=== PATIENT | female | born 2000 | race Hispanic/Latino ===

== ENCOUNTER 2018-07-06 22:11 | Emergency (ER) | payer SELFPAY ==
[2018-07-06 22:48] LABS: Urine Blood NEGATIVE (NEG); Urine Glucose NEGATIVE (NEG); Urine Protein NEGATIVE (NEG)
[2018-07-06] MEDS ORDERED: ONDANSETRON 4 MG/2 ML VIAL ONE (23:02)
[2018-07-06] MEDS ORDERED: KETOROLAC 30 MG/ML INJ ONE (23:02)
[2018-07-06 23:08] LABS: Absolute Lymphocytes (CBC) 2.2 K/uL (0.7-4.9); Absolute Monocytes 0.5 K/uL (0.1-1.3); Absolute Neutrophil 4.2 K/uL (1.8-8.0); Basophils % 0.9 % (0-1.3); Eosinophils % 1.3 % (0-4.4); Hematocrit 36.4 % (36.0-45.0); Lymphocytes % 31.2 % (15.3-44.8); MCH 30.1 pg (27.0-35.0); MCV 89.1 fL (80-100); Monocytes % 6.6 % (3.3-12.3); RBC Red Blood Cell Count 4.09 M/uL (3.86-4.86)
[2018-07-06 23:28] LABS: ALT/SGPT 17 U/L (12-78); AST/SGOT 17 U/L (15-37); Alkaline Phosphatase 64 U/L (45-117); BUN Blood Urea Nitrogen 14 mg/dL (7-18); Bicarbonate 27 mmol/L (21-32); Bilirubin Total 0.2 mg/dL (0.2-1.0); Glucose Level 80 mg/dL (74-106); Potassium 3.4 mmol/L (3.5-5.1); Protein, Total 7.3 g/dL (6.4-8.2); Sodium Level 140 mmol/L (136-145)
--- NOTE | 2018-07-07 00:02 | ER ---
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 pt seen by PCP ak1 today for "high blood sugars" pt to make diet changes and follow up with PCP 07/20/18. Transition of care: patient was not received from another setting of care. Onset of symptoms is unknown. Risk Assessment: Do you want to hurt yourself or someone else? Patient reports no desire to harm self or others. Initial Sepsis Screen: Does the patient meet any 2 criteria? No. Patient's initial sepsis screen is negative. Does the patient have a suspected source of infection? No. Patient's initial sepsis screen is negative. Care prior to arrival: motrin 3 tabs at 1500, relief unit 2100. 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 22:29 Method Of Arrival: Ambulatory ak1 22:29 Acuity: JOLLY 4 ak1 Triage Assessment: 22:31 Headache History: The patient has had previous headaches and this one is similar to ak1 previous episodes. General: Appears in no apparent distress. Behavior is calm, cooperative. Pain: Complains of pain in left temporal area and left zoroastrian. Pain: Pain currently is 5 out of 10 on a pain scale. Pain began 2-3 days ago. Also complains of no other associated symptoms. EENT: No signs and/or symptoms were reported regarding the EENT system. Neuro: Level of Consciousness is awake, alert, obeys commands, Oriented to person, place, time, situation, Director Of Operations are equal bilaterally Moves all extremities. Gait is steady, Speech is normal, Facial symmetry appears normal, Pupils are PERRLA. Cardiovascular: No deficits noted. Respiratory: No deficits noted. GI: No signs and/or symptoms were reported involving the gastrointestinal system. : No signs and/or symptoms were reported regarding the genitourinary system. Derm: No signs and/or symptoms reported regarding the dermatologic system. Musculoskeletal: No signs and/or symptoms reported regarding the musculoskeletal system. 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 - Social history:: Smoking status: Patient/guardian denies using tobacco. - Ebola Screening: : No symptoms or risks identified at this time. - Family history:: not pertinent. Screenin:33 Abuse screen: Denies threats or abuse. Denies injuries from another. Nutritional ak1 screening: No deficits noted. Tuberculosis screening: No symptoms or risk factors identified. Fall Risk None identified. Assessment: 22:33 Reassessment: Patient appears in no apparent distress at this time. No changes from ak1 previously documented assessment. Patient is alert, oriented x 3, equal unlabored respirations, skin warm/dry/pink. see triage assessment. General: Appears in no apparent distress. Behavior is calm, cooperative. Pain: Complains of pain in face and left zoroastrian and left temporal area. 23:02 Reassessment: Patient appears in no apparent distress at this time. No changes from ak1 previously documented assessment. Patient and/or family updated on plan of care and expected duration. Pain level reassessed. Patient is alert, oriented x 3, equal unlabored respirations, skin warm/dry/pink. pt and family informed of wait for results. 23:42 Reassessment: Patient appears in no apparent distress at this time. No changes from ak1 previously documented assessment. Patient and/or family updated on plan of care and expected duration. Pain level reassessed. Patient is alert, oriented x 3, equal unlabored respirations, skin warm/dry/pink. pt tolerated POchallenge. Vital Signs: 22:31 BP 121 / 80; Pulse 96; Resp 18; Temp 98.1(O); Pulse Ox 100% on R/A; Weight 52.16 kg ak1 (R); Height 4 ft. 11 in. (149.86 cm) (R); Pain 5/10; 23:34 BP 96 / 70; Pulse 94; Resp 16; Pulse Ox 100% on R/A; ak1 22:31 Body Mass Index 23.23 (52.16 kg, 149.86 cm) ak1 ED Course: 22:14 Patient arrived in ED. 22:18 Selvin Bose MD is Attending Physician. sandeep 22:29 Qian Nelson, RN is Primary Nurse. ak1 22:29 Patient has correct armband on for positive identification. Bed in low position. Call ak1 light in reach. Side rails up X 1. Adult w/ patient. Pulse ox on. NIBP on. 22:30 Triage completed. ak1 22:31 Arm band placed on Patient placed in an exam room, on a stretcher, on pulse oximetry, ak1 Patient notified of wait time. 22:33 Urine collected: clean catch specimen, clear. ak1 22:54 Initial lab(s) drawn, by me, sent to lab. Inserted saline lock: 20 gauge in right ak1 antecubital area, using aseptic technique. Blood collected. 23:00 CT Head Brain wo Cont In Process Unspecified. EDMT 07/07 00:01 Jimy Parker MD is Referral Physician. [facility] 00:04 No provider procedures requiring assistance completed. IV discontinued, intact, ak1 bleeding controlled, No redness/swelling at site. Pressure dressing applied. Administered Medications: 07/06 23:02 Drug: TORadol 30 mg Route: IVP; Site: right antecubital; ak1 23:34 Follow up: Response: No adverse reaction ak1 23:02 Drug: Zofran 4 mg Route: IVP; Site: right antecubital; ak1 23:34 Follow up: Response: No adverse reaction ak1 Outcome: 07/07 00:01 Discharge ordered by . sandeep 00:04 Discharged to home ambulatory, with family. ak1 00:04 Condition: improved 00:04 Discharge instructions given to patient, family, Instructed on discharge instructions, follow up and referral plans. no drinking with medication, no driving heavy equipment, medication usage, Demonstrated understanding of instructions, follow-up care, medications, Prescriptions given X 2. 00:11 Patient left the ED. ak1 Signatures: Dispatcher [employer] EDSelvin Mello MD MD cha Salyer, Qian Muller, RN RN ak1
--- NOTE | 2018-07-07 00:02 | EDPHYS ---
Physician Documentation [facility] Name: Niru Castro Age: 18 yrs Sex: Female : 2000 Arrival Date: 07/06/2018 Time: 22:14 Bed 5 Private MD: ED Physician Selvin Bose HPI: 07/06 22:50 This 18 yrs old Female presents to ER via Ambulatory with complaints of sandeep Headache. 22:50 The patient complains of pain to the left congregational. The patient describes the headache as sandeep constant. Onset: The symptoms/episode began/occurred 1 day(s) ago. Associated signs and symptoms: The patient has no apparent associated signs or symptoms. Severity of symptoms: At its worst the pain was moderate, in the emergency department the pain is unchanged. Headache History: Denies prior headaches. The symptoms are alleviated by nothing. the symptoms are aggravated by nothing. The patient has not experienced similar symptoms in the past. 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 - Social history:: Smoking status: Patient/guardian denies using tobacco. - Ebola Screening: : No symptoms or risks identified at this time. - Family history:: not pertinent. ROS: 22:50 Constitutional: Negative for fever, chills, and weight loss, Eyes: Negative for injury, sandeep pain, redness, and discharge, ENT: Negative for injury, pain, and discharge, Neck: Negative for injury, pain, and swelling, Cardiovascular: Negative for chest pain, palpitations, and edema, Respiratory: Negative for shortness of breath, cough, wheezing, and pleuritic chest pain, Abdomen/GI: Negative for abdominal pain, nausea, vomiting, diarrhea, and constipation, Back: Negative for injury and pain, : Negative for injury, bleeding, discharge, and swelling, MS/Extremity: Negative for injury and deformity, Skin: Negative for injury, rash, and discoloration, Psych: Negative for depression, anxiety, suicide ideation, homicidal ideation, and hallucinations, Allergy/Immunology: Negative for hives, rash, and allergies, Endocrine: Negative for neck swelling, polydipsia, polyuria, polyphagia, and marked weight changes. 22:50 Neuro: Positive for headache, of the left congregational and left temporal area. Exam: 22:50 Constitutional: This is a well developed, well nourished patient who is awake, alert, sandeep and in no acute distress. Eyes: Pupils equal round and reactive to light, extra-ocular motions intact. Lids and lashes normal. Conjunctiva and sclera are non-icteric and not injected. Cornea within normal limits. Periorbital areas with no swelling, redness, or edema. ENT: Nares patent. No nasal discharge, no septal abnormalities noted. Tympanic membranes are normal and external auditory canals are clear. Oropharynx with no redness, swelling, or masses, exudates, or evidence of obstruction, uvula midline. Mucous membranes moist. Neck: Trachea midline, no thyromegaly or masses palpated, and no cervical lymphadenopathy. Supple, full range of motion without nuchal rigidity, or vertebral point tenderness. No Meningismus. Chest/axilla: Normal chest wall appearance and motion. Nontender with no deformity. No lesions are appreciated. Cardiovascular: Regular rate and rhythm with a normal S1 and S2. No gallops, murmurs, or rubs. Normal PMI, no JVD. No pulse deficits. Respiratory: Lungs have equal breath sounds bilaterally, clear to auscultation and percussion. No rales, rhonchi or wheezes noted. No increased work of breathing, no retractions or nasal flaring. Abdomen/GI: Soft, non-tender, with normal bowel sounds. No distension or tympany. No guarding or rebound. No evidence of tenderness throughout. Back: No spinal tenderness. No costovertebral tenderness. Full range of motion. Female : Normal external genitalia. Skin: Warm, dry with normal turgor. Normal color with no rashes, no lesions, and no evidence of cellulitis. MS/ Extremity: Pulses equal, no cyanosis. Neurovascular intact. Full, normal range of motion. Neuro: Awake and alert, GCS 15, oriented to person, place, time, and situation. Cranial nerves II-XII grossly intact. Motor strength 5/5 in all extremities. Sensory grossly intact. Cerebellar exam normal. Normal gait. 22:50 Head/face: Noted is tenderness, that is mild, of the left congregational. 22:52 Neck: External neck: is normal, no acute changes, C-spine: appears grossly normal, no sandeep acute changes, Thyroid: appears normal, no acute changes, Trachea: is midline with no obvious abnormalities, no acute changes, ROM/movement: is normal, no acute changes, Meningeal signs: are not present, Kernig's sign is negative, Brudzinski's sign is negative, Lymph nodes: no appreciated lymphadenopathy. Vital Signs: 22:31 BP 121 / 80; Pulse 96; Resp 18; Temp 98.1(O); Pulse Ox 100% on R/A; Weight 52.16 kg ak1 (R); Height 4 ft. 11 in. (149.86 cm) (R); Pain 5/10; 23:34 BP 96 / 70; Pulse 94; Resp 16; Pulse Ox 100% on R/A; ak1 22:31 Body Mass Index 23.23 (52.16 kg, 149.86 cm) [facility] MDM: 22:18 Patient medically screened. [facility] 22:53 Data reviewed: vital signs, nurses notes, lab test result(s), radiologic studies, CT sandeep scan. 07/06 22:34 Order name: Urine Dipstick--Ancillary (enter results); Complete Time: 22:53 [facility] 07/06 22:34 Order name: Urine --Ancillary (enter results); Complete Time: 22:53 [facility] 07/06 22:46 Order name: CBC with Diff; Complete Time: 00:01 [facility] 07/06 22:46 Order name: Comprehensive Metabolic Panel; Complete Time: 23:32 [facility] 07/06 22:46 Order name: Sed Rate; Complete Time: 00:01 [facility] 07/06 22:46 Order name: CT Head Brain wo Cont [facility] 07/06 23:33 Order name: PO challenge: juice; Complete Time: 23:41 [facility] Administered Medications: 23:02 Drug: TORadol 30 mg Route: IVP; Site: right antecubital; ak1 23:34 Follow up: Response: No adverse reaction ak1 23:02 Drug: Zofran 4 mg Route: IVP; Site: right antecubital; ak1 23:34 Follow up: Response: No adverse reaction ak1 Disposition: 07/07/18 00:01 Discharged to Home. Impression: Headache, Hypokalemia. - Condition is Stable. - Discharge Instructions: Potassium Content of Foods, General Headache Without Cause, Migraine Headache, [id number]-[id number], General Headache Without Cause, Golb-jx-Djxu, Hypokalemia. - Prescriptions for Fioricet with Codeine 50- 325-40-30 mg Oral capsule - take 1 capsule by ORAL route every 4 hours as needed not to exceed 6 capsules per 24hrs; 20 capsule. Zofran 4 mg Oral Tablet - take 1 tablet by ORAL route every 12 hours As needed; 14 tablet. - Medication Reconciliation Form, Thank You Letter, Antibiotic Education, Prescription Opioid Use form. - Follow up: Private Physician; When: 2 - 3 days; Reason: Recheck today's complaints, Continuance of care, Re-evaluation by your physician. Follow up: Jimy Parker; When: 2 - 3 days; Reason: Recheck today's complaints, Re-evaluation by your physician. - Problem is new. - Symptoms have improved. Signatures: Dispatcher [employer] EDAR Selvin Bose MD MD cha Krenek, Amber RN RN ak1 Corrections: (The following items were deleted from the chart) 07/07 00:11 00:01 07/07/2018 00:01 Discharged to Home. Impression: Headache; Hypokalemia. Condition ak1 is Stable. Discharge Instructions: General Headache Without Cause, Migraine Headache, Gtkb-ko-Ogic, General Headache Without Cause, Hmta-yh-Weli, Potassium Content of Foods, Hypokalemia. Prescriptions for Fioricet with Codeine 81-655-82-30 mg Oral capsule - take 1 capsule by ORAL route every 4 hours as needed not to exceed 6 capsules per 24hrs; 20 capsule, Zofran 4 mg Oral Tablet - take 1 tablet by ORAL route every 12 hours As needed; 14 tablet. and Forms are Medication Reconciliation Form, Thank You Letter, Antibiotic Education, Prescription Opioid Use. Follow up: Private Physician; When: 2 - 3 days; Reason: Recheck today's complaints, Continuance of care, Re-evaluation by your physician. Follow up: Jimy Parker; When: 2 - 3 days; Reason: Recheck today's complaints, Re-evaluation by your physician. Problem is new. Symptoms have improved. sandeep
--- NOTE | 2018-07-07 12:18 | RAD REPORT ---
EXAM DESCRIPTION: CT - Head Brain Wo Cont - 07/07/2018 3:58 am CLINICAL HISTORY: Headache A preliminary report was provided at the time of the study and reviewed prior to final report. Due to hospital wide power failure, all overnight and morning reports are delayed. COMPARISON: None. TECHNIQUE: Axial 5 mm thick images of the head were obtained without IV contrast. All CT scans are performed using dose optimization technique as appropriate and may include automated exposure control or mA/KV adjustment according to patient size. FINDINGS: No intracranial hemorrhage, mass, edema or shift of mid-line structures. No acute infarcti on changes seen. No abnormal extra-axial fluid collections. Ventricles are normal. Mastoid air cells and visualized portions of the paranasal sinuses are clear. No acute bony findings. IMPRESSION: Negative non-contrast CT head examination.
== END 2018-07-07 00:11 | disposition home or self-care (01) ==
LOC: ER 22:11
DX: E87.6 Hypokalemia (principal)
CPT/HCPCS: 36415; 70450; 80053; 81003; 81025; 85025; 85652; 96374; 96375; 99284; J2405

== ENCOUNTER 2018-12-23 21:42 | Emergency (ER) | payer OTHER, SELFPAY ==
--- OUTSIDE RECORDS SUMMARY | 2018-12-23 21:45 | XMS REPORT ---
:2000 [facility] Address [address] [place] [address] Dr. Conde [address] [place] [id number] Care Team Providers Name Role Phone Unavailable Unavailable Unavailable Problems This patient has no known problems. Allergies, Adverse Reactions, Alerts This patient has no known allergies or adverse reactions. Medications This patient has no known medications.
[2018-12-23] MEDS ORDERED: DIPHENHYDRAMINE 25 MG TAB/CAP ONE (22:22)
[2018-12-23] MEDS ORDERED: NA CHLORIDE 0.9% 1,000 ML ONE (23:53)
[2018-12-24 00:19] LABS: Absolute Lymphocytes (CBC) 1.8 K/uL (0.7-4.9); Absolute Monocytes 0.4 K/uL (0.1-1.3); Absolute Neutrophil 6.6 K/uL (1.8-8.0); Basophils % 0.4 % (0-1.3); Eosinophils % 0.3 % (0-4.4); Hematocrit 34.6 % (36.0-45.0); Lymphocytes % 20.5 % (15.3-44.8); MPV 10.7 fL (7.6-11.3); RBC Red Blood Cell Count 3.93 M/uL (3.86-4.86)
[2018-12-24 00:30] LABS: ALT/SGPT 16 U/L (12-78); AST/SGOT 12 U/L (15-37); Albumin 3.8 g/dL (3.4-5.0); Alkaline Phosphatase 39 U/L (45-117); BUN Blood Urea Nitrogen 7 mg/dL (7-18); Bicarbonate 24 mmol/L (21-32); Bilirubin Direct < 0.1 mg/dL (0-0.2); Bilirubin Total 0.3 mg/dL (0.2-1.0); Glucose Level 82 mg/dL (74-106); Potassium 3.5 mmol/L (3.5-5.1); Protein, Total 6.9 g/dL (6.4-8.2); Sodium Level 139 mmol/L (136-145)
--- NOTE | 2018-12-24 00:59 | ER ---
Nurse's Notes [facility] Name: Niru Castro Age: 18 yrs Sex: Female : 2000 Arrival Date: 12/23/2018 Time: 21:45 Bed 25 Private MD: Diagnosis: state;Vomiting;Dehydration;Urinary tract infection, site not specified Presentation: 12/23 22:03 Presenting complaint: Patient states: Patient reports that she has been vomiting at aj1 least 10 times a day for the past 2 days. Patient reports that she has been unable to tolerate food or fluids. Reports feeling weak at this time. Denies abdominal pain or vaginal bleeding. Transition of care: patient was not received from another setting of care. Onset of symptoms was December 21, 2018. Risk Assessment: Do you want to hurt yourself or someone else? Patient reports no desire to harm self or others. Initial Sepsis Screen: Does the patient meet any 2 criteria? No. Patient's initial sepsis screen is negative. Does the patient have a suspected source of infection? No. Patient's initial sepsis screen is negative. Care prior to arrival: None. 22:03 Method Of Arrival: Ambulatory aj 22:03 Acuity: JOLLY 3 aj1 Triage Assessment: 22:04 General: Appears in no apparent distress. comfortable, Behavior is calm, cooperative, aj1 appropriate for age. Pain: Denies pain. Neuro: Level of Consciousness is awake, alert, obeys commands, Oriented to person, place, time, situation. Cardiovascular: Patient's skin is warm and dry. Respiratory: Airway is patent Respiratory effort is even, unlabored, Respiratory pattern is regular, symmetrical. GI: Reports nausea, vomiting. 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 - Social history:: Smoking status: Patient/guardian denies using tobacco. - Ebola Screening: : Patient denies travel to an Ebola-affected area in the 21 days before illness onset. Screenin:46 Abuse screen: Denies threats or abuse. Nutritional screening: No deficits noted. jb4 Tuberculosis screening: No symptoms or risk factors identified. Fall Risk IV access (20 points). Gait- Normal/Bed Rest/Wheelchair (0 pts) Total Haro Fall Scale indicates No Risk (0-24 pts). Assessment: 23:56 General: Appears comfortable, well groomed, well developed, Behavior is calm, jb4 cooperative, appropriate for age, Pt reports "passing out" earlier today after vomiting. Pain: Denies pain. Neuro: Level of Consciousness is awake, alert, obeys commands, Oriented to person, place, time, situation. Cardiovascular: Patient's skin is warm and dry. Respiratory: Airway is patent Respiratory effort is even, unlabored, Respiratory pattern is regular, symmetrical. GI: Abdomen is flat, non-distended, Bowel sounds present X 4 quads. Abd is soft and non tender X 4 quads. Reports nausea, vomiting. : No signs and/or symptoms were reported regarding the genitourinary system. EENT: No signs and/or symptoms were reported regarding the EENT system. Derm: Skin is intact, Skin is pink, warm \\T\\ dry. Musculoskeletal: Circulation, motion, and sensation intact. 12/24 01:39 Reassessment: Patient appears in no apparent distress at this time. No changes from jb4 previously documented assessment. Patient and/or family updated on plan of care and expected duration. Pain level reassessed. Patient is alert, oriented x 3, equal unlabored respirations, skin warm/dry/pink. Vital Signs: 12/23 22:04 BP 111 / 78; Pulse 90; Resp 18; Temp 98.3; Pulse Ox 100% on R/A; Weight 49.9 kg (R); aj1 Height 4 ft. 11 in. (149.86 cm) (R); Pain 0/10; 23:46 BP 91 / 64; Pulse 76; Resp 18; Pulse Ox 100% on R/A; jb4 12/24 00:12 BP 105 / 65; Pulse 75; Resp 16; Pulse Ox 100% on R/A; jb4 01:39 BP 108 / 70; Pulse 64; Resp 16; Pulse Ox 99% on R/A; jb4 12/23 22:04 Body Mass Index 22.22 (49.90 kg, 149.86 cm) aj ED Course: 12/23 21:45 Patient arrived in ED. am2 22:04 Triage completed. aj1 22:04 Arm band placed on Patient placed in an internal wait recliner, Patient notified of aj1 wait time. 23:00 Patient has correct armband on for positive identification. Bed in low position. Call jb4 light in reach. Side rails up X 1. 23:00 Pulse ox on. NIBP on. jb4 23:09 Sandy Preciado FNP-C is PHCP. snw 23:09 Bruno Mullins MD is Attending Physician. snw 23:16 Rigo Chow, RN is Primary Nurse. jb4 12/24 01:40 No provider procedures requiring assistance completed. IV discontinued, intact, jb4 bleeding controlled. Administered Medications: 12/23 22:12 Drug: Benadryl 25 mg Route: PO; aj1 23:56 Follow up: Response: No adverse reaction jb4 23:55 Drug: NS 0.9% 1000 ml Route: IV; Rate: 1 bolus; Site: right antecubital; jb4 03 00:50 Follow up: Response: No adverse reaction; IV Status: Completed infusion; IV Intake: jb4 1000ml 01:36 Drug: Rocephin 1 grams Route: IV; Rate: calculated rate; Site: right antecubital; jb4 01:38 Follow up: Response: No adverse reaction; IV Status: Completed infusion; IV Intake: jb4 10ml ; Given IVP per pharmacy protocol Intake: 00:50 IV: 1000ml; Total: 1000ml. jb4 01:38 IV: 10ml; Total: 1010ml. jb4 Outcome: 00:58 Discharge ordered by . snw 01:40 Discharged to home ambulatory, with family. jb4 01:40 Condition: stable 01:40 Discharge instructions given to patient, significant other, Instructed on discharge instructions, follow up and referral plans. Demonstrated understanding of instructions, follow-up care. 01:41 Patient left the ED. jb4 Signatures: Elizabeth Reyes RN RN aj1 Sandy Preciado FNP-C FNP-CsnRigo Tracy, RN RN jb4 Stephania Whitney am2 Corrections: (The following items were deleted from the chart) 00:00 12/23 23:56 General: Appears comfortable, well groomed, well developed, Behavior is jb4 calm, cooperative, appropriate for age, jb4
--- NOTE | 2018-12-24 00:59 | EDPHYS ---
Physician Documentation [facility] Name: Niru Castro Age: 18 yrs Sex: Female : 2000 Arrival Date: 12/23/2018 Time: 21:45 Bed 25 Private MD: ED Physician Bruno Mullins HPI: 12/24 00:17 This 18 yrs old Female presents to ER via Ambulatory with complaints of snw Nausea/Vomiting - 10 wks . 00:17 The patient presents to the emergency department with nausea, vomiting. Onset: The snw symptoms/episode began/occurred acutely, 2 week(s) ago, and became persistent. Possible causes: . The symptoms are aggravated by nothing. Severity of symptoms: At their worst the symptoms were moderate. The patient has not experienced similar symptoms in the past. It is unknown whether or not the patient has recently seen a physician. denies abdominal cramping, fever, vaginal discharge. INVESTIGATIVE REPORTER: 12/23 22:04 LMP 10/12/2018 aj1 Historical: - Allergies: 22:04 No Known Allergies; aj1 - Home Meds: 22:04 None [Active]; aj1 - PMHx: 22:04 HYPERGLYCEMIA; aj1 - PSHx: 22:04 None; aj1 - Immunization history:: Flu vaccine is up to date. - Social history:: Smoking status: Patient/guardian denies using tobacco. - Ebola Screening: : Patient denies travel to an Ebola-affected area in the 21 days before illness onset. ROS: 12/24 00:16 Constitutional: Negative for fever, chills, and weight loss, Eyes: Negative for injury, snw pain, redness, and discharge, ENT: Negative for injury, pain, and discharge, Neck: Negative for injury, pain, and swelling, Cardiovascular: Negative for chest pain, palpitations, and edema, Respiratory: Negative for shortness of breath, cough, wheezing, and pleuritic chest pain, Back: Negative for injury and pain, : Negative for injury, bleeding, discharge, and swelling, MS/Extremity: Negative for injury and deformity, Skin: Negative for injury, rash, and discoloration, Neuro: Negative for headache, weakness, numbness, tingling, and seizure. Abdomen/GI: Positive for nausea, vomiting. Exam: 00:16 Constitutional: This is a well developed, well nourished patient who is awake, alert, snw and in no acute distress. Head/Face: Normocephalic, atraumatic. Eyes: Pupils equal round and reactive to light, extra-ocular motions intact. Lids and lashes normal. Conjunctiva and sclera are non-icteric and not injected. Cornea within normal limits. Periorbital areas with no swelling, redness, or edema. ENT: Nares patent. No nasal discharge, no septal abnormalities noted. Tympanic membranes are normal and external auditory canals are clear. Oropharynx with no redness, swelling, or masses, exudates, or evidence of obstruction, uvula midline. Mucous membranes moist. Neck: Trachea midline, no thyromegaly or masses palpated, and no cervical lymphadenopathy. Supple, full range of motion without nuchal rigidity, or vertebral point tenderness. No Meningismus. Chest/axilla: Normal chest wall appearance and motion. Nontender with no deformity. No lesions are appreciated. Cardiovascular: Regular rate and rhythm with a normal S1 and S2. No gallops, murmurs, or rubs. Normal PMI, no JVD. No pulse deficits. Respiratory: Lungs have equal breath sounds bilaterally, clear to auscultation and percussion. No rales, rhonchi or wheezes noted. No increased work of breathing, no retractions or nasal flaring. Abdomen/GI: Soft, non-tender, with normal bowel sounds. No distension or tympany. No guarding or rebound. No evidence of tenderness throughout. Back: No spinal tenderness. No costovertebral tenderness. Full range of motion. Skin: Warm, dry with normal turgor. Normal color with no rashes, no lesions, and no evidence of cellulitis. MS/ Extremity: Pulses equal, no cyanosis. Neurovascular intact. Full, normal range of motion. Neuro: Awake and alert, GCS 15, oriented to person, place, time, and situation. Cranial nerves II-XII grossly intact. Motor strength 5/5 in all extremities. Sensory grossly intact. Cerebellar exam normal. Normal gait. Psych: Awake, alert, with orientation to person, place and time. Behavior, mood, and affect are within normal limits. Vital Signs: 12/23 22:04 BP 111 / 78; Pulse 90; Resp 18; Temp 98.3; Pulse Ox 100% on R/A; Weight 49.9 kg (R); aj1 Height 4 ft. 11 in. (149.86 cm) (R); Pain 0/10; 23:46 BP 91 / 64; Pulse 76; Resp 18; Pulse Ox 100% on R/A; jb4 12/24 00:12 BP 105 / 65; Pulse 75; Resp 16; Pulse Ox 100% on R/A; jb4 01:39 BP 108 / 70; Pulse 64; Resp 16; Pulse Ox 99% on R/A; jb4 12/23 22:04 Body Mass Index 22.22 (49.90 kg, 149.86 cm) aj1 MDM: 00:05 Patient medically screened. snw 01:00 Data reviewed: vital signs, nurses notes. Data interpreted: Pulse oximetry: on room air snw is 100 %. Interpretation: normal. Counseling: I had a detailed discussion with the patient and/or guardian regarding: the historical points, exam findings, and any diagnostic results supporting the discharge/admit diagnosis, lab results, the need for outpatient follow up, to return to the emergency department if symptoms worsen or persist or if there are any questions or concerns that arise at home. Special discussion: Based on the patient's Hx, exam, and Dx evaluation, there is no indication for emergent surgery or inpatient Tx. It is understood by the patient/guardian that if the Sx's persist or worsen they need to return immediately for re-evaluation. Based on the history and exam findings, there is no indication for further emergent testing or inpatient evaluation. I discussed with the patient/guardian the need to see the OB Gyne specialist for further evaluation of the symptoms. 12/23 23:09 Order name: Urine Culture snw 12/23 23:09 Order name: Urine Microscopic Only; Complete Time: 01:20 snw 12/23 23:16 Order name: Basic Metabolic Panel; Complete Time: 00:35 snw 12/23 23:16 Order name: CBC with Diff; Complete Time: 00:28 snw 12/23 23:16 Order name: Hepatic Function; Complete Time: 00:35 snw 12/23 23:16 Order name: Magnesium; Complete Time: 00:35 snw 12/23 23:09 Order name: Urine Test (obtain specimen); Complete Time: 23:56 snw 12/23 23:09 Order name: Urine Dipstick-Ancillary (obtain specimen); Complete Time: 23:56 snw 12/23 23:16 Order name: Labs collected and sent; Complete Time: 23:56 snw 12/24 00:15 Order name: Urine Dipstick--Ancillary (enter results); Complete Time: 01:33 ag4 12/24 00:15 Order name: Urine --Ancillary (enter results); Complete Time: :33 ag4 Administered Medications: 12/23 22:12 Drug: Benadryl 25 mg Route: PO; aj1 23:56 Follow up: Response: No adverse reaction jb4 23:55 Drug: NS 0.9% 1000 ml Route: IV; Rate: 1 bolus; Site: right antecubital; jb4 12/24 00:50 Follow up: Response: No adverse reaction; IV Status: Completed infusion; IV Intake: jb4 1000ml 01:36 Drug: Rocephin 1 grams Route: IV; Rate: calculated rate; Site: right antecubital; 4 01:38 Follow up: Response: No adverse reaction; IV Status: Completed infusion; IV Intake: jb4 10ml ; Given IVP per pharmacy protocol Disposition: 02:27 Co-signature as Attending Physician, Bruno Mullins MD. ma2 Disposition: 12/24/18 00:58 Discharged to Home. Impression: state, Vomiting, Dehydration, Urinary tract infection, site not specified. - Condition is Stable. - Discharge Instructions: Dehydration, Adult, Nausea and Vomiting, Adult, First Trimester of , and Urinary Tract Infection, Rehydration, Adult. - Prescriptions for Macrobid 100 mg Oral Capsule - take 1 capsule by ORAL route every 12 hours for 10 days; 20 capsule. - Medication Reconciliation Form, Thank You Letter, Antibiotic Education, Prescription Opioid Use form. - Follow up: Private Physician; When: 1 - 2 days; Reason: Recheck today's complaints, Continuance of care, Re-evaluation by your physician. Follow up: Emergency Department; When: As needed; Reason: Worsening of condition. Signatures: Dispatcher [employer] EDElizabeth Tabor RN RN aj1 Sandy Preciado, SCALE CLERK-C SCALE CLERK-Csnw Rigo Chow RN RN jb4 Bruno Mullins MD MD ma2 Corrections: (The following items were deleted from the chart) 01:23 00:58 12/24/2018 00:58 Discharged to Home. Impression: state; Vomiting; snw Dehydration. Condition is Stable. Forms are Medication Reconciliation Form, Thank You Letter, Antibiotic Education, Prescription Opioid Use. Follow up: Private Physician; When: 1 - 2 days; Reason: Recheck today's complaints, Continuance of care, Re-evaluation by your physician. Follow up: Emergency Department; When: As needed; Reason: Worsening of condition. snw 01:41 01:23 12/24/2018 00:58 Discharged to Home. Impression: state; Vomiting; jb4 Dehydration; Urinary tract infection, site not specified. Condition is Stable. Discharge Instructions: Dehydration, Adult, Nausea and Vomiting, Adult, First Trimester of , Rehydration, Adult. Forms are Medication Reconciliation Form, Thank You Letter, Antibiotic Education, Prescription Opioid Use. Follow up: Private Physician; When: 1 - 2 days; Reason: Recheck today's complaints, Continuance of care, Re-evaluation by your physician. Follow up: Emergency Department; When: As needed; Reason: Worsening of condition. snw
[2018-12-24 01:13] LABS: Urine Culture Reflex Order NOT NEEDED
[2018-12-24 01:14] LABS: Urine Bacteria >50 /HPF (<20); Urine Mucus 4+ /HPF (NONE SEEN)
[2018-12-24 01:15] LABS: Urine RBC <5 /HPF (NONE SEEN)
[2018-12-24 01:28] LABS: Urine Blood NEGATIVE (NEG); Urine Glucose NEGATIVE (NEG); Urine Protein 1+ (NEG); Urine Specific Gravity 1.025 (1.005-1.030)
[2018-12-24] MEDS ORDERED: CEFTRIAXONE/SWI 1gm 1 GM/10 ML SYR ONE (01:38)
== END 2018-12-24 01:41 | disposition home or self-care (01) ==
LOC: ER 21:42
DX: O23.41 Unspecified infection of urinary tract in pregnancy, first trimester (principal); E86.0 Dehydration; Z3A.10 10 weeks gestation of pregnancy
CPT/HCPCS: 36415; 80048; 80076; 81003; 81015; 81025; 83735; 85025; 87086; 87088; 96361; 96374; 99283; J0696; J7030

== ENCOUNTER 2019-01-03 09:06 | Emergency (ER) | payer OTHER ==
--- OUTSIDE RECORDS SUMMARY | 2019-01-03 09:08 | XMS REPORT ---
:2000 [facility] Address [address] [place] [address] Dr. Conde [address] [place] [id number] Care Team Providers Name Role Phone Unavailable Unavailable Unavailable Problems This patient has no known problems. Allergies, Adverse Reactions, Alerts This patient has no known allergies or adverse reactions. Medications This patient has no known medications.
[2019-01-03] MEDS ORDERED: NA CHLORIDE 0.9% 1,000 ML ONE (10:58)
--- NOTE | 2019-01-03 11:02 | RAD REPORT ---
EXAM DESCRIPTION: US - 1St Trimest Single 1St Fetus - 01/03/2019 10:50 am CLINICAL HISTORY: ABD CRAMPING, COMPARISON: No comparisons FINDINGS: A single gestational sac is seen within the uterus. The shape of the sac is within normal limits for gestational age. Within the sac is a single pole with crown-rump length of 4.2 cm, c orrelating to estimated gestational age of 11 weeks 1 day. Estimated date of delivery is 07/24/2019. Heart rate is 147 BPM. The placenta is not yet developed due to early gestational age. The maternal adnexa and ovaries are within normal limits. Normal Doppler blood flow was demonstrated to both ovaries. IMPRESSION: Single live early intrauterine gestation with estimated gestational age of 11 weeks 1 da y, AMAURY 07/24/2019. No unusual or unexpected finding.
[2019-01-03 11:22] LABS: Absolute Lymphocytes (CBC) 1.4 K/uL (0.7-4.9); Absolute Monocytes 0.3 K/uL (0.1-1.3); Absolute Neutrophil 5.1 K/uL (1.8-8.0); Basophils % 0.3 % (0-1.3); Eosinophils % 0.4 % (0-4.4); Hematocrit 36.5 % (36.0-45.0); Lymphocytes % 20.6 % (15.3-44.8); MPV 10.1 fL (7.6-11.3); Monocytes % 4.6 % (3.3-12.3); RBC Red Blood Cell Count 4.13 M/uL (3.86-4.86)
[2019-01-03 11:55] LABS: BUN Blood Urea Nitrogen 6 mg/dL (7-18); Bicarbonate 27 mmol/L (21-32); Glucose Level 84 mg/dL (74-106); HCG, Quantitative 61900 mIU/mL (1-3); Potassium 3.2 mmol/L (3.5-5.1); Sodium Level 139 mmol/L (136-145)
[2019-01-03 11:56] LABS: Urine Blood NEGATIVE (NEG); Urine Glucose NEGATIVE (NEG); Urine Protein NEGATIVE (NEG); Urine pH 6.5 (5.0-7.0)
--- NOTE | 2019-01-03 12:26 | ER ---
Nurse's Notes [facility] Name: Niru Castro Age: 18 yrs Sex: Female : 2000 Arrival Date: 01/03/2019 Time: 09:08 Bed 23 Private MD: Diagnosis: Abdominal tenderness; related conditions, unspecified, first trimester;Hypokalemia Presentation: 01/03 09:20 Presenting complaint: Lower abdominal pain x 2 days. Pt is 11 weeks , , AMAURY hb 10/. Denies vaginal bleeding/increased discharge/fever. Transition of care: patient was not received from another setting of care. Onset of symptoms was January 02, 2019. Risk Assessment: Do you want to hurt yourself or someone else? Patient reports no desire to harm self or others. Care prior to arrival: None. 09:20 Method Of Arrival: Ambulatory hb 09:20 Acuity: JOLLY 3 hb 13:12 Initial Sepsis Screen: Does the patient meet any 2 criteria? No. Patient's initial aj1 sepsis screen is negative. Does the patient have a suspected source of infection? Yes: Acute abdominal pain. 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 - Social history:: Smoking status: Patient/guardian denies using tobacco. - Ebola Screening: : No symptoms or risks identified at this time. Screenin:10 Abuse screen: Denies threats or abuse. Denies injuries from another. Nutritional aj1 screening: No deficits noted. Tuberculosis screening: No symptoms or risk factors identified. 13:13 Fall Risk None identified. aj1 Assessment: 10:10 General: Appears in no apparent distress. uncomfortable, Behavior is calm, cooperative, aj1 appropriate for age. Pain: Complains of pain in suprapubic area Pain does not radiate. Pain currently is 8 out of 10 on a pain scale. Quality of pain is described as sharp, Pain began 2-3 days ago. Is continuous. Neuro: Level of Consciousness is awake, alert, obeys commands, Oriented to person, place, time, situation. Cardiovascular: Patient's skin is warm and dry. Respiratory: Airway is patent Respiratory effort is even, unlabored, Respiratory pattern is regular, symmetrical. GI: Abdomen is non-distended, Bowel sounds present X 4 quads. Abd is soft and non tender X 4 quads. Reports nausea, Patient currently denies diarrhea, vomiting. : No signs and/or symptoms were reported regarding the genitourinary system. EENT: No signs and/or symptoms were reported regarding the EENT system. Derm: No signs and/or symptoms reported regarding the dermatologic system. Skin is pink, warm \T\ dry. normal. Musculoskeletal: No signs and/or symptoms reported regarding the musculoskeletal system. Circulation, motion, and sensation intact. 11:14 Reassessment: Patient appears in no apparent distress at this time. No changes from aj1 previously documented assessment. Patient and/or family updated on plan of care and expected duration. Pain level reassessed. Patient is alert, oriented x 3, equal unlabored respirations, skin warm/dry/pink. 12:15 Reassessment: Patient appears in no apparent distress at this time. No changes from aj1 previously documented assessment. Patient and/or family updated on plan of care and expected duration. Pain level reassessed. Patient is alert, oriented x 3, equal unlabored respirations, skin warm/dry/pink. 12:44 Reassessment: Patient discharge pending patient finishing KLyte and PO challenge. aj1 Vital Signs: 09:19 BP 106 / 51; Pulse 102; Resp 16; Temp 97.7(TE); Pulse Ox 99% on R/A; Pain 8/10; hb 10:10 BP 112 / 58; Pulse 92; Resp 18; Pulse Ox 100% on R/A; aj1 11:14 BP 99 / 64; Pulse 88; Resp 18; Pulse Ox 100% on R/A; aj1 12:44 BP 95 / 56; Pulse 96; Resp 20; Pulse Ox 100% on R/A; aj1 13:15 BP 99 / 65; Pulse 92; Resp 18; Pulse Ox 99% on R/A; aj1 ED Course: 09:08 Patient arrived in ED. as 09:23 Triage completed. hb 09:58 Elizabeth Reyes RN is Primary Nurse. aj1 10:00 Selvin Bose MD is Attending Physician. sandeep 10:10 Patient has correct armband on for positive identification. Bed in low position. Call aj light in reach. Side rails up X 1. 10:10 Arm band placed on. aj1 10:10 No provider procedures requiring assistance completed. aj1 10:43 Patient taken to ultrasound. via wheelchair. hr 10:51 1St Trimest Single 1St Fetus In Process Unspecified. EDMS 11:05 Initial lab(s) drawn, by me, sent to lab. Inserted saline lock: 20 gauge in right aj antecubital area, using aseptic technique. Blood collected. 12:24 Aayush García MD is Referral Physician. [facility] 13:12 IV discontinued, intact, bleeding controlled, No redness/swelling at site. Pressure aj1 dressing applied. Administered Medications: 11:13 Drug: NS 0.9% 1000 ml Route: IV; Rate: 1 bolus; Site: right antecubital; aj1 13:10 Follow up: IV Status: Completed infusion; IV Intake: 1000ml aj 12:44 Drug: Potassium Effervescent Tablet 25 mEq Route: PO; aj1 13:10 Follow up: Response: No adverse reaction aj Intake: 13:10 IV: 1000ml; Total: 1000ml. aj Outcome: 12:25 Discharge ordered by . [facility] 13:14 Discharged to home ambulatory, with family. aj1 13:14 Condition: good 13:14 Discharge instructions given to patient, Instructed on discharge instructions, follow up and referral plans. medication usage, Demonstrated understanding of instructions, follow-up care, medications, Prescriptions given X 1. 13:15 Patient left the ED. aj Signatures: Dispatcher [employer] EDTN Elizabeth Reyes, RN RN aj1 Selvin Bose MD MD cha Rod, Haley hr Martinez, Amelia as Lydia Castrejon, RN RN
--- NOTE | 2019-01-03 12:26 | EDPHYS ---
Physician Documentation [facility] Name: Niru Castro Age: 18 yrs Sex: Female : 2000 Arrival Date: 01/03/2019 Time: 09:08 Bed 23 Private MD: ED Physician Selvin Bose HPI: 01/03 12:23 This 18 yrs old Female presents to ER via Ambulatory with complaints of sandeep Abdominal Pain - 11 wks preg. 12:22 The patient presents to the emergency department with abdominal pain, of the suprapubic sandeep area. The estimated gestational age is 11 weeks. course: care: at a clinic, private OB physician, Dr. beasley. Previous pregnancies: the patient has never been . Associated signs and symptoms: The patient has no apparent associated signs or symptoms. The patient has not experienced similar symptoms in the past. 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 - Social history:: Smoking status: Patient/guardian denies using tobacco. - Ebola Screening: : No symptoms or risks identified at this time. ROS: 12:23 Constitutional: Negative for fever, chills, and weight loss, Eyes: Negative for injury, sandeep pain, redness, and discharge, ENT: Negative for injury, pain, and discharge, Neck: Negative for injury, pain, and swelling, Cardiovascular: Negative for chest pain, palpitations, and edema, Respiratory: Negative for shortness of breath, cough, wheezing, and pleuritic chest pain, Back: Negative for injury and pain, : Negative for injury, bleeding, discharge, and swelling, MS/Extremity: Negative for injury and deformity, Skin: Negative for injury, rash, and discoloration, Neuro: Negative for headache, weakness, numbness, tingling, and seizure, Psych: Negative for depression, anxiety, suicide ideation, homicidal ideation, and hallucinations, Allergy/Immunology: Negative for hives, rash, and allergies, Endocrine: Negative for neck swelling, polydipsia, polyuria, polyphagia, and marked weight changes, Hematologic/Lymphatic: Negative for swollen nodes, abnormal bleeding, and unusual bruising. 12:23 Abdomen/GI: Positive for abdominal pain, of the suprapubic area. Exam: 12:23 Constitutional: This is a well developed, well nourished patient who is awake, alert, sandeep and in no acute distress. Head/Face: Normocephalic, atraumatic. Eyes: Pupils equal round and reactive to light, extra-ocular motions intact. Lids and lashes normal. Conjunctiva and sclera are non-icteric and not injected. Cornea within normal limits. Periorbital areas with no swelling, redness, or edema. ENT: Nares patent. No nasal discharge, no septal abnormalities noted. Tympanic membranes are normal and external auditory canals are clear. Oropharynx with no redness, swelling, or masses, exudates, or evidence of obstruction, uvula midline. Mucous membranes moist. Neck: Trachea midline, no thyromegaly or masses palpated, and no cervical lymphadenopathy. Supple, full range of motion without nuchal rigidity, or vertebral point tenderness. No Meningismus. Chest/axilla: Normal chest wall appearance and motion. Nontender with no deformity. No lesions are appreciated. Cardiovascular: Regular rate and rhythm with a normal S1 and S2. No gallops, murmurs, or rubs. Normal PMI, no JVD. No pulse deficits. Respiratory: Lungs have equal breath sounds bilaterally, clear to auscultation and percussion. No rales, rhonchi or wheezes noted. No increased work of breathing, no retractions or nasal flaring. Back: No spinal tenderness. No costovertebral tenderness. Full range of motion. Female : Normal external genitalia. Skin: Warm, dry with normal turgor. Normal color with no rashes, no lesions, and no evidence of cellulitis. MS/ Extremity: Pulses equal, no cyanosis. Neurovascular intact. Full, normal range of motion. Neuro: Awake and alert, GCS 15, oriented to person, place, time, and situation. Cranial nerves II-XII grossly intact. Motor strength 5/5 in all extremities. Sensory grossly intact. Cerebellar exam normal. Normal gait. Psych: Awake, alert, with orientation to person, place and time. Behavior, mood, and affect are within normal limits. 12:23 Abdomen/GI: Inspection: abdomen appears normal, Bowel sounds: normal, Palpation: abdomen is soft and non-tender, Liver: no appreciated palpable abnormalities, Hernia: not appreciated. Vital Signs: 09:19 BP 106 / 51; Pulse 102; Resp 16; Temp 97.7(TE); Pulse Ox 99% on R/A; Pain 8/10; hb 10:10 BP 112 / 58; Pulse 92; Resp 18; Pulse Ox 100% on R/A; aj1 11:14 BP 99 / 64; Pulse 88; Resp 18; Pulse Ox 100% on R/A; aj1 12:44 BP 95 / 56; Pulse 96; Resp 20; Pulse Ox 100% on R/A; aj1 13:15 BP 99 / 65; Pulse 92; Resp 18; Pulse Ox 99% on R/A; aj1 MDM: 10:01 Patient medically screened. [facility] 12:24 Data reviewed: vital signs, nurses notes, lab test result(s), radiologic studies, sandeep ultrasound. 01/03 10:27 Order name: Quantitative Hcg; Complete Time: 12:19 sandeep 01/03 10:27 Order name: Abo/rh Typing; Complete Time: 12:19 sandeep 01/03 10:27 Order name: Basic Metabolic Panel; Complete Time: 12:19 sandeep 01/03 10:27 Order name: CBC with Diff; Complete Time: 12:19 sandeep 01/03 10:53 Order name: Urine Dipstick--Ancillary (enter results); Complete Time: 12:19 bd 01/03 10:54 Order name: Urine --Ancillary (enter results); Complete Time: 12:19 bd 01/03 10:27 Order name: Urine Test (obtain specimen); Complete Time: 10:59 sandeep 01/03 10:27 Order name: IV Saline Lock; Complete Time: 11:13 sandeep 01/03 10:27 Order name: Labs collected and sent; Complete Time: 11:13 sandeep 01/03 10:27 Order name: NPO; Complete Time: 10:34 sandeep 01/03 10:51 Order name: 1St Trimest Single 1St Fetus; Complete Time: 12:19 EDMS 01/03 10:27 Order name: Urine Dipstick-Ancillary (obtain specimen); Complete Time: 10:59 sandeep 01/03 12:20 Order name: PO challenge: juice; Complete Time: 13:11 sandeep Administered Medications: 11:13 Drug: NS 0.9% 1000 ml Route: IV; Rate: 1 bolus; Site: right antecubital; [facility] 13:10 Follow up: IV Status: Completed infusion; IV Intake: 1000ml [facility] 12:44 Drug: Potassium Effervescent Tablet 25 mEq Route: PO; [facility] 13:10 Follow up: Response: No adverse reaction aj Disposition: 01/03/19 12:25 Discharged to Home. Impression: Abdominal tenderness, related conditions, unspecified, first trimester, Hypokalemia. - Condition is Stable. - Discharge Instructions: Potassium Content of Foods, First Trimester of , [id number]-[id number], Pelvic Rest, Hypokalemia. - Prescriptions for Vitamin 27- 0.8 mg Oral Tablet - take 1 tablet by ORAL route once daily; 30 tablet. - Work release form, Medication Reconciliation Form, Thank You Letter, Antibiotic Education, Prescription Opioid Use form. - Follow up: Private Physician; When: 1 - 2 days; Reason: Recheck today's complaints, Continuance of care, Re-evaluation by your physician. Follow up: Aayush García MD; When: 2 - 3 days; Reason: Recheck today's complaints, Continuance of care, Re-evaluation by your physician. - Problem is new. - Symptoms have improved. Signatures: Dispatcher [employer] [facility] Elizabeth Reyes RN RN aj1 Selvin Bose MD MD cha Baxter, Heather, RN RN Corrections: (The following items were deleted from the chart) 10:51 10:28 Transvaginal Ob+US.RAD.BRZ ordered. [facility] 12:26 12:25 01/03/2019 12:25 Discharged to Home. Impression: Abdominal tenderness; sandeep related conditions, unspecified, first trimester. Condition is Stable. Forms are Medication Reconciliation Form, Thank You Letter, Antibiotic Education, Prescription Opioid Use. Follow up: Private Physician; When: 1 - 2 days; Reason: Recheck today's complaints, Continuance of care, Re-evaluation by your physician. Follow up: Aayush García; When: 2 - 3 days; Reason: Recheck today's complaints, Continuance of care, Re-evaluation by your physician. Problem is new. Symptoms have improved. [facility] 13:15 12:26 01/03/2019 12:25 Discharged to Home. Impression: Abdominal tenderness; aj1 related conditions, unspecified, first trimester; Hypokalemia. Condition is Stable. Forms are Medication Reconciliation Form, Thank You Letter, Antibiotic Education, Prescription Opioid Use. Follow up: Private Physician; When: 1 - 2 days; Reason: Recheck today's complaints, Continuance of care, Re-evaluation by your physician. Follow up: Aayush García; When: 2 - 3 days; Reason: Recheck today's complaints, Continuance of care, Re-evaluation by your physician. Problem is new. Symptoms have improved. sandeep
[2019-01-03] MEDS ORDERED: POTASSIUM 25 MEQ EFFERV TAB ONE (12:37)
== END 2019-01-03 13:15 | disposition home or self-care (01) ==
LOC: ER 09:06
DX: E87.6 Hypokalemia (principal); Z3A.11 11 weeks gestation of pregnancy
CPT/HCPCS: 36415; 76801; 80048; 81003; 81025; 84702; 85025; 86900; 86901; 96360; 96361; 99284; J7030

== ENCOUNTER 2019-01-23 11:37 | Emergency (ER) | payer OTHER ==
--- OUTSIDE RECORDS SUMMARY | 2019-01-23 11:39 | XMS REPORT ---
:2000 [facility] Address [address] [place] [address] Dr. Conde [address] [place] [id number] Care Team Providers Name Role Phone Unavailable Unavailable Unavailable Problems This patient has no known problems. Allergies, Adverse Reactions, Alerts This patient has no known allergies or adverse reactions. Medications This patient has no known medications.
[2019-01-23 12:13] LABS: Absolute Lymphocytes (CBC) 1.4 K/uL (0.7-4.9); Absolute Monocytes 0.3 K/uL (0.1-1.3); Absolute Neutrophil 5.2 K/uL (1.8-8.0); Basophils % 0.6 % (0-1.3); Eosinophils % 0.6 % (0-4.4); Hematocrit 33.7 % (36.0-45.0); Lymphocytes % 20.4 % (15.3-44.8); MPV 10.4 fL (7.6-11.3); Monocytes % 4.4 % (3.3-12.3); RBC Red Blood Cell Count 3.77 M/uL (3.86-4.86)
[2019-01-23 12:27] LABS: Urine Blood NEGATIVE (NEG); Urine Glucose NEGATIVE (NEG); Urine Protein NEGATIVE (NEG); Urine Specific Gravity 1.025 (1.005-1.030)
[2019-01-23] MEDS ORDERED: NA CHLORIDE 0.9% 1,000 ML ONE (12:28)
[2019-01-23 12:41] LABS: BUN Blood Urea Nitrogen 7 mg/dL (7-18); Bicarbonate 25 mmol/L (21-32); Glucose Level 73 mg/dL (74-106); Potassium 3.3 mmol/L (3.5-5.1); Sodium Level 139 mmol/L (136-145)
--- NOTE | 2019-01-23 12:48 | EDPHYS ---
Physician Documentation [facility] Name: Niru Castro Age: 18 yrs Sex: Female : 2000 Arrival Date: 01/23/2019 Time: 11:39 Bed 7 Private MD: ED Physician Selvin Bose HPI: 01/23 11:55 This 18 yrs old Female presents to ER via Ambulatory with complaints of Fever. sandeep 11:55 The patient reports fever, that was measured at 99 degrees Fahrenheit. Onset: The sandeep symptoms/episode began/occurred 3 day(s) ago. Modifying factors: there are no obvious modifying factors. Associated signs and symptoms: Pertinent positives: vomiting. Severity of symptoms: At their worst the symptoms were mild moderate in the emergency department the symptoms have improved mildly. The patient has experienced similar episodes in the past, a few times. 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 - Social history:: Smoking status: Patient/guardian denies using tobacco. - Ebola Screening: : No symptoms or risks identified at this time. - Family history:: not pertinent. ROS: 11:55 Constitutional: Negative for fever, chills, and weight loss, Eyes: Negative for injury, sandeep pain, redness, and discharge, ENT: Negative for injury, pain, and discharge, Neck: Negative for injury, pain, and swelling, Cardiovascular: Negative for chest pain, palpitations, and edema, Respiratory: Negative for shortness of breath, cough, wheezing, and pleuritic chest pain, Back: Negative for injury and pain, : Negative for injury, bleeding, discharge, and swelling, MS/Extremity: Negative for injury and deformity, Skin: Negative for injury, rash, and discoloration, Neuro: Negative for headache, weakness, numbness, tingling, and seizure, Psych: Negative for depression, anxiety, suicide ideation, homicidal ideation, and hallucinations, Allergy/Immunology: Negative for hives, rash, and allergies, Endocrine: Negative for neck swelling, polydipsia, polyuria, polyphagia, and marked weight changes, Hematologic/Lymphatic: Negative for swollen nodes, abnormal bleeding, and unusual bruising. 11:55 Abdomen/GI: Positive for nausea and vomiting, abdominal distension. Exam: 11:55 Constitutional: This is a well developed, well nourished patient who is awake, alert, sandeep and in no acute distress. Head/Face: Normocephalic, atraumatic. Eyes: Pupils equal round and reactive to light, extra-ocular motions intact. Lids and lashes normal. Conjunctiva and sclera are non-icteric and not injected. Cornea within normal limits. Periorbital areas with no swelling, redness, or edema. ENT: Nares patent. No nasal discharge, no septal abnormalities noted. Tympanic membranes are normal and external auditory canals are clear. Oropharynx with no redness, swelling, or masses, exudates, or evidence of obstruction, uvula midline. Mucous membranes moist. Neck: Trachea midline, no thyromegaly or masses palpated, and no cervical lymphadenopathy. Supple, full range of motion without nuchal rigidity, or vertebral point tenderness. No Meningismus. Chest/axilla: Normal chest wall appearance and motion. Nontender with no deformity. No lesions are appreciated. Cardiovascular: Regular rate and rhythm with a normal S1 and S2. No gallops, murmurs, or rubs. Normal PMI, no JVD. No pulse deficits. Respiratory: Lungs have equal breath sounds bilaterally, clear to auscultation and percussion. No rales, rhonchi or wheezes noted. No increased work of breathing, no retractions or nasal flaring. Abdomen/GI: Soft, non-tender, with normal bowel sounds. No distension or tympany. No guarding or rebound. No evidence of tenderness throughout. Back: No spinal tenderness. No costovertebral tenderness. Full range of motion. Female : Normal external genitalia. Skin: Warm, dry with normal turgor. Normal color with no rashes, no lesions, and no evidence of cellulitis. MS/ Extremity: Pulses equal, no cyanosis. Neurovascular intact. Full, normal range of motion. Neuro: Awake and alert, GCS 15, oriented to person, place, time, and situation. Cranial nerves II-XII grossly intact. Motor strength 5/5 in all extremities. Sensory grossly intact. Cerebellar exam normal. Normal gait. Psych: Awake, alert, with orientation to person, place and time. Behavior, mood, and affect are within normal limits. Vital Signs: 11:43 BP 104 / 62; Pulse 79; Resp 18; Temp 98.2; Pulse Ox 100% on R/A; Weight 48.53 kg; la1 Height 4 ft. 11 in. (149.86 cm); 11:43 Body Mass Index 21.61 (48.53 kg, 149.86 cm) la1 MDM: 11:45 Patient medically screened. [facility] 11:56 Data reviewed: vital signs, nurses notes, lab test result(s). [facility] 01/23 11:54 Order name: Quantitative Hcg; Complete Time: 13:26 [facility] 01/23 11:54 Order name: Abo/rh Typing; Complete Time: 13:26 [facility] 01/23 11:54 Order name: Basic Metabolic Panel; Complete Time: 13:26 [facility] 01/23 11:54 Order name: CBC with Diff; Complete Time: 12:44 [facility] 01/23 11:54 Order name: Urine Culture [facility] 01/23 12:17 Order name: Urine Dipstick--Ancillary (enter results); Complete Time: 12:44 01/23 11:54 Order name: Urine Test (obtain specimen); Complete Time: 12:10 [facility] 01/23 11:54 Order name: IV Saline Lock; Complete Time: 12:10 [facility] 01/23 11:54 Order name: Labs collected and sent; Complete Time: 12:10 [facility] 01/23 12:17 Order name: Urine --Ancillary (enter results); Complete Time: 12:44 01/23 11:54 Order name: NPO; Complete Time: 12:10 [facility] 01/23 11:54 Order name: Urine Dipstick-Ancillary (obtain specimen); Complete Time: 12:10 [facility] 01/23 11:54 Order name: FHT's; Complete Time: 12:23 [facility] 01/23 13:27 Order name: PO challenge: juice; Complete Time: 13:40 [facility] Administered Medications: 12:15 Drug: NS 0.9% 1000 ml Route: IV; Rate: 1 bolus; Site: right antecubital; iw 13:34 Drug: Potassium Effervescent Tablet 25 mEq Route: PO; iw 13:37 Not Given (Physician Discretion): Rocephin 1 grams IV at per protocol once; Given slow iw IV push per pharmacy instructions 13:38 Not Given (Physician Discretion): Augmentin 500 mg PO once iw Disposition: 01/23/19 12:47 Discharged to Home. Impression: related conditions, unspecified, first trimester, related conditions, unspecified, Vomiting, Hypoglycemia, unspecified, Hypokalemia. - Condition is Stable. - Discharge Instructions: Abdominal Pain During , Hyperemesis Gravidarum, Nausea and Vomiting, Adult, Eating Plan for Hyperemesis Gravidarum, First Trimester of , Ange-fd-Fgly, Nausea and Vomiting, Adult, Qugq-zr-[id number], First Trimester of , Pelvic Rest. - Prescriptions for Diclegis 10- 10 mg Oral tablet,delayed release (DR/EC) - take 1 tablet by ORAL route 3 times per day and 2 tablets at bedtime; 60 tablet. Vitamin 27- 0.8 mg Oral Tablet - take 1 tablet by ORAL route once daily; 30 tablet. Zofran 4 mg Oral Tablet - take 1 tablet by ORAL route every 12 hours As needed; 20 tablet. - Medication Reconciliation Form, Thank You Letter, Antibiotic Education, Prescription Opioid Use, Work release form form. - Follow up: Private Physician; When: 2 - 3 days; Reason: Recheck today's complaints, Continuance of care, Re-evaluation by your physician. Follow up: Mini Rekhi; When: 2 - 3 days; Reason: Recheck today's complaints, Re-evaluation by your physician. - Problem is new. - Symptoms have improved. Signatures: Dispatcher [employer] Selvin Lui MD MD cha Williams, Irene, RN RN iw Attema, Lee, RN RN la1 Corrections: (The following items were deleted from the chart) 13:29 12:47 01/23/2019 12:47 Discharged to Home. Impression: related conditions, sandeep unspecified, first trimester; related conditions, unspecified; Vomiting; Urinary tract infection, site not specified. Condition is Stable. Discharge Instructions: Abdominal Pain During , Nausea and Vomiting, Adult, First Trimester of , [id number]-cc-[id number], Nausea and Vomiting, Adult, Bbhj-xe-Npmn, First Trimester of , Pelvic Rest, Hyperemesis Gravidarum, Eating Plan for Hyperemesis Gravidarum, Dysuria, Urinary Tract Infection, Adult, Urinary Tract Infection, Adult, Bkey-wp-Lklx. Prescriptions for Diclegis 10-10 mg Oral tablet,delayed release (DR/EC) - take 1 tablet by ORAL route 3 times per day and 2 tablets at bedtime; 60 tablet, Vitamin 27-0.8 mg Oral Tablet - take 1 tablet by ORAL route once daily; 30 tablet, Zofran 4 mg Oral Tablet - take 1 tablet by ORAL route every 12 hours As needed; 20 tablet, Augmentin 500-125 mg Oral Tablet - take 1 tablet by ORAL route every 8 hours for 7 days; 21 tablet. and Forms are Medication Reconciliation Form, Thank You Letter, Antibiotic Education, Prescription Opioid Use. Follow up: Private Physician; When: 2 - 3 days; Reason: Recheck today's complaints, Continuance of care, Re-evaluation by your physician. Follow up: Mai Gonzalez; When: 2 - 3 days; Reason: Recheck today's complaints, Re-evaluation by your physician. Problem is new. Symptoms have improved. [facility] 13:51 13:29 01/23/2019 12:47 Discharged to Home. Impression: related conditions, iw unspecified, first trimester; related conditions, unspecified; Vomiting; Hypoglycemia, unspecified; Hypokalemia. Condition is Stable. Discharge Instructions: Abdominal Pain During , Nausea and Vomiting, Adult, First Trimester of , Huqv-xo-[id number], Nausea and Vomiting, Adult, Rybu-wt-Mutu, First Trimester of , Pelvic Rest, Hyperemesis Gravidarum, Eating Plan for Hyperemesis Gravidarum, Dysuria, Urinary Tract Infection, Adult, Urinary Tract Infection, Adult, Nxkg-yd-Fxti. Prescriptions for Diclegis 10-10 mg Oral tablet,delayed release (DR/EC) - take 1 tablet by ORAL route 3 times per day and 2 tablets at bedtime; 60 tablet, Vitamin 27-0.8 mg Oral Tablet - take 1 tablet by ORAL route once daily; 30 tablet, Zofran 4 mg Oral Tablet - take 1 tablet by ORAL route every 12 hours As needed; 20 tablet, Augmentin 500-125 mg Oral Tablet - take 1 tablet by ORAL route every 8 hours for 7 days; 21 tablet. and Forms are Medication Reconciliation Form, Thank You Letter, Antibiotic Education, Prescription Opioid Use. Follow up: Private Physician; When: 2 - 3 days; Reason: Recheck today's complaints, Continuance of care, Re-evaluation by your physician. Follow up: Mai Gonzalez; When: 2 - 3 days; Reason: Recheck today's complaints, Re-evaluation by your physician. Problem is new. Symptoms have improved. sandeep
--- NOTE | 2019-01-23 12:48 | ER ---
Nurse's Notes [facility] Name: Niru Castro Age: 18 yrs Sex: Female : 2000 Arrival Date: 01/23/2019 Time: 11:39 Bed 7 Private MD: Diagnosis: related conditions, unspecified, first trimester; related conditions, unspecified;Vomiting;Hypoglycemia, unspecified;Hypokalemia Presentation: 01/23 11:42 Presenting complaint: Patient states: I am about 14 weeks and for the last 3 la1 days I have been vomiting a lot, cant hold anything down and yesterday I started to feel like I was having chills. Transition of care: patient was not received from another setting of care. Onset of symptoms was January 23, 2019. Risk Assessment: Do you want to hurt yourself or someone else? Patient reports no desire to harm self or others. Initial Sepsis Screen: Does the patient meet any 2 criteria? No. Patient's initial sepsis screen is negative. Does the patient have a suspected source of infection? No. Patient's initial sepsis screen is negative. Care prior to arrival: None. 11:42 Method Of Arrival: Ambulatory la1 11:42 Acuity: JOLLY 3 la1 Triage Assessment: 12:00 General: Behavior is calm, cooperative. 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 - Social history:: Smoking status: Patient/guardian denies using tobacco. - Ebola Screening: : No symptoms or risks identified at this time. - Family history:: not pertinent. Screenin:23 Abuse screen: Denies threats or abuse. Denies injuries from another. Nutritional iw screening: No deficits noted. Tuberculosis screening: No symptoms or risk factors identified. Fall Risk IV access (20 points). Assessment: 12:00 General: Appears in no apparent distress. comfortable. Neuro: Level of Consciousness is iw awake, alert, obeys commands, Oriented to person, place, time, situation, Moves all extremities. Cardiovascular: Patient's skin is warm and dry. Respiratory: Respiratory effort is even, unlabored, Respiratory pattern is regular, symmetrical. GI: Reports nausea, vomiting. : Denies vaginal bleeding. Derm: Skin is intact, is healthy with good turgor. Musculoskeletal: Range of motion: intact in all extremities. 12:25 Reassessment: Patient appears in no apparent distress at this time. Patient and/or iw family updated on plan of care and expected duration. Pain level reassessed. Patient is alert, oriented x 3, equal unlabored respirations, skin warm/dry/pink. Patient denies pain at this time. Pain: Denies pain. Vital Signs: 11:43 BP 104 / 62; Pulse 79; Resp 18; Temp 98.2; Pulse Ox 100% on R/A; Weight 48.53 kg; la1 Height 4 ft. 11 in. (149.86 cm); 11:43 Body Mass Index 21.61 (48.53 kg, 149.86 cm) la1 Vitals: 12:25 Heart Tones 148 RLQ. iw ED Course: 11:39 Patient arrived in ED. as 11:43 Triage completed. la1 11:44 Arm band placed on left wrist. la1 11:45 Selvin Bose MD is Attending Physician. sandeep 11:45 Anastasiya Love RN is Primary Nurse. iw 12:00 Patient has correct armband on for positive identification. iw 12:10 Initial lab(s) drawn, by me, sent to lab. Inserted saline lock: 20 gauge in right iw antecubital area, using aseptic technique. Blood collected. 12:10 Urine collected: clean catch specimen, clear. mb4 12:47 Mai Gonzalez MD is Referral Physician. sandeep 13:50 No provider procedures requiring assistance completed. IV discontinued, intact, iw bleeding controlled, No redness/swelling at site. Pressure dressing applied. Administered Medications: 12:15 Drug: NS 0.9% 1000 ml Route: IV; Rate: 1 bolus; Site: right antecubital; iw 13:34 Drug: Potassium Effervescent Tablet 25 mEq Route: PO; iw 13:37 Not Given (Physician Discretion): Rocephin 1 grams IV at per protocol once; Given slow iw IV push per pharmacy instructions 13:38 Not Given (Physician Discretion): Augmentin 500 mg PO once iw Outcome: 12:47 Discharge ordered by . sandeep 13:50 Discharged to home ambulatory, with family. iw 13:50 Condition: good 13:50 Discharge instructions given to patient, family, Instructed on discharge instructions, follow up and referral plans. medication usage, Demonstrated understanding of instructions, follow-up care, medications, Prescriptions given X 3. 13:51 Patient left the ED. iw Signatures: Selvin Bose MD MD cha Martinez, Amelia as Williams, Irene, RN RN iw Alejandro Valle RN RN la1 Padmini Castrejon 4
[2019-01-23 13:04] LABS: HCG, Quantitative 31442 mIU/mL (1-3)
[2019-01-23] MEDS ORDERED: POTASSIUM 25 MEQ EFFERV TAB ONE (13:43)
== END 2019-01-23 13:51 | disposition home or self-care (01) ==
LOC: ER 11:37
DX: O21.9 Vomiting of pregnancy, unspecified (principal); O26.891 Other specified pregnancy related conditions, first trimester; E16.2 Hypoglycemia, unspecified; E87.6 Hypokalemia; Z3A.00 Weeks of gestation of pregnancy not specified
CPT/HCPCS: 36415; 80048; 81003; 81025; 84702; 85025; 86900; 86901; 87086; 87088; 99284; J7030

== ENCOUNTER 2019-01-27 12:49 | Emergency (ER) | payer OTHER ==
--- OUTSIDE RECORDS SUMMARY | 2019-01-27 12:57 | XMS REPORT ---
:2000 Author Organization [facility] Address [address] [place] [address] Dr. Conde [address] [place] [id number] Care Team Providers Name Role Phone Unavailable Unavailable Unavailable Problems This patient has no known problems. Allergies, Adverse Reactions, Alerts This patient has no known allergies or adverse reactions. Medications This patient has no known medications.
--- NOTE | 2019-01-27 13:58 | ER ---
Nurse's Notes [facility] Name: Niru Castro Age: 18 yrs Sex: Female : 2000 Arrival Date: 01/27/2019 Time: 12:50 Bed Waiting Private MD: Diagnosis: Presentation: 01/27 13:08 Presenting complaint: Patient states: fever Tmax 104 started last night. Entire family sv has the flu. Tylenol 650 mg taken at 0700. No motrin or ibuprofen. Pt is 15 wks . Transition of care: patient was not received from another setting of care. Onset of symptoms was January 26, 2019. Care prior to arrival: None. 13:08 Method Of Arrival: Ambulatory sv 13:08 Acuity: JOLLY 4 sv Historical: - Allergies: 13:10 No Known Allergies; sv - PMHx: 13:10 HYPERGLYCEMIA; sv - PSHx: 13:10 Appendectomy; sv - Immunization history:: Adult Immunizations up to date. - Social history:: Smoking status: Patient/guardian denies using tobacco. - Ebola Screening: : No symptoms or risks identified at this time. Vital Signs: 13:10 BP 98 / 59; Pulse 84; Resp 16; Temp 98; Pulse Ox 96% ; Weight 48.08 kg; Height 4 ft. 11 sv in. (149.86 cm); Pain 0/10; 13:10 Body Mass Index 21.41 (48.08 kg, 149.86 cm) sv ED Course: 12:50 Patient arrived in ED. tw3 13:09 Triage completed. sv 13:11 Arm band placed on. sv Administered Medications: No medications were administered Outcome: 13:58 Patient left the ED. sv Signatures: Nayeli Vazquez RN RN Taylor Mann tw3 Corrections: (The following items were deleted from the chart) 13:12 13:10 Pulse 84bpm; Resp 16bpm; Pulse Ox 96%; Temp 98F; 48.08 kg; Height 4 ft. 11 in.; sv BMI: 21.4; Pain 0/10; sv
== END 2019-01-27 13:58 | disposition left against medical advice (07) ==
LOC: ER 12:49
DX: R50.9 Fever, unspecified (principal); Z53.21 Procedure and treatment not carried out due to patient leaving prior to being seen by health care provider
CPT/HCPCS: 87804; 99281

== ENCOUNTER 2019-02-05 20:57 | Emergency (ER) | payer OTHER ==
--- OUTSIDE RECORDS SUMMARY | 2019-02-05 21:00 | XMS REPORT ---
:2000 Author Organization [facility] Address [address] [place] [address] Dr. Conde [address] [place] [id number] Care Team Providers Name Role Phone Unavailable Unavailable Unavailable Problems This patient has no known problems. Allergies, Adverse Reactions, Alerts This patient has no known allergies or adverse reactions. Medications This patient has no known medications.
[2019-02-05 22:22] LABS: Absolute Monocytes 0.4 K/uL (0.1-1.3); Absolute Neutrophil 4.8 K/uL (1.8-8.0); Basophils % 0.7 % (0-1.3); Hematocrit 34.9 % (36.0-45.0); Lymphocytes % 27.8 % (15.3-44.8); MPV 10.1 fL (7.6-11.3); Monocytes % 5.1 % (3.3-12.3)
[2019-02-05 22:44] LABS: Urine Bacteria <20 /HPF (<20); Urine Culture Reflex Order NOT NEEDED; Urine RBC <5 /HPF (NONE SEEN)
[2019-02-05 22:58] LABS: Urine Blood NEGATIVE (NEG); Urine Glucose NEGATIVE (NEG); Urine Protein NEGATIVE (NEG)
[2019-02-05 22:58] LABS: BUN Blood Urea Nitrogen 8 mg/dL (7-18); Bicarbonate 26 mmol/L (21-32); Glucose Level 74 mg/dL (74-106); HCG, Quantitative 23273 mIU/mL (1-3); Potassium 3.5 mmol/L (3.5-5.1); Sodium Level 142 mmol/L (136-145)
--- NOTE | 2019-02-05 23:24 | ER ---
Nurse's Notes [facility] Name: Niru Castro Age: 18 yrs Sex: Female : 2000 Arrival Date: 02/05/2019 Time: 21:00 Bed 15 Private MD: Diagnosis: Threatened Presentation: 02/05 21:10 Presenting complaint: Patient states: I am about 16 weeks and about an hour la1 ago I had some light pink spotting on the toilet paper with some upper abd pain. Transition of care: patient was not received from another setting of care. Onset of symptoms was February 05, 2019. Risk Assessment: Do you want to hurt yourself or someone else? Patient reports no desire to harm self or others. Initial Sepsis Screen: Does the patient meet any 2 criteria? No. Patient's initial sepsis screen is negative. Does the patient have a suspected source of infection? No. Patient's initial sepsis screen is negative. Care prior to arrival: None. 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 - Social history:: Smoking status: Patient/guardian denies using tobacco. - Ebola Screening: : No symptoms or risks identified at this time. Screenin:30 Abuse screen: Denies threats or abuse. Nutritional screening: No deficits noted. jb4 Tuberculosis screening: No symptoms or risk factors identified. Fall Risk None identified. Assessment: 21:30 General: Appears in no apparent distress. comfortable, Behavior is calm, cooperative, jb4 appropriate for age. Pain: Denies pain. Neuro: Level of Consciousness is awake, alert, obeys commands, Oriented to person, place, time, situation. Cardiovascular: Patient's skin is warm and dry. Respiratory: Airway is patent Respiratory effort is even, unlabored, Respiratory pattern is regular, symmetrical. GI: No signs and/or symptoms were reported involving the gastrointestinal system. : Reports vaginal bleeding that is spotty. EENT: No signs and/or symptoms were reported regarding the EENT system. Derm: Skin is intact, Skin is pink, warm \T\ dry. Musculoskeletal: Circulation, motion, and sensation intact. 22:30 Reassessment: Patient appears in no apparent distress at this time. Patient and/or jb4 family updated on plan of care and expected duration. Pain level reassessed. Patient is alert, oriented x 3, equal unlabored respirations, skin warm/dry/pink. 23:45 Reassessment: Patient appears in no apparent distress at this time. Patient and/or jb4 family updated on plan of care and expected duration. Pain level reassessed. Patient is alert, oriented x 3, equal unlabored respirations, skin warm/dry/pink. PT discharged home with significant other and family member. IV dc'ed, intact bleeding controlled. Denies questions on discharge instructions and verbalizes understanding. Vital Signs: 21:11 BP 98 / 60; Pulse 99; Resp 16; Temp 98.6; Pulse Ox 98% on R/A; Weight 48.53 kg; Height la1 4 ft. 11 in. (149.86 cm); 22:28 BP 93 / 64; Pulse 72; Resp 16; Pulse Ox 100% on R/A; jb4 23:00 BP 96 / 63; Pulse 81; Resp 16; Pulse Ox 100% on R/A; jb4 23:30 BP 95 / 64; Pulse 75; Resp 16; Pulse Ox 99% on R/A; jb4 21:11 Body Mass Index 21.61 (48.53 kg, 149.86 cm) la1 Vitals: 22:28 Heart Tones 160 beats per minute.. jb4 ED Course: 21:00 Patient arrived in ED. es 21:11 Triage completed. la1 21:11 Arm band placed on right wrist. la1 21:14 Fito Rosen NP is PHCP. pm1 21:14 Henrik Brownlee MD is Attending Physician. pm1 21:30 Patient has correct armband on for positive identification. Placed in gown. Bed in low jb4 position. Call light in reach. Side rails up X 1. Pulse ox on. NIBP on. Warm blanket given. 21:42 Rigo Chow RN is Primary Nurse. jb4 22:00 Initial lab(s) drawn, by me, sent to lab. Inserted saline lock: 20 gauge in right jb4 antecubital area, using aseptic technique. Blood collected. 23:47 No provider procedures requiring assistance completed. IV discontinued, intact, jb4 bleeding controlled. Administered Medications: No medications were administered Outcome: 23:22 Discharge ordered by MD. pm1 23:47 Discharged to home ambulatory, with family, with significant other. jb4 23:47 Condition: stable 23:47 Discharge instructions given to patient, family, significant other, Instructed on discharge instructions, follow up and referral plans. Demonstrated understanding of instructions, follow-up care. 23:47 Patient left the ED. jb4 Signatures: Denise Gaona Lee, RN RN la1 Fito Rosen, VANIA TRANSPORT ASSISTANT pm1 Rigo Chow, RN RN jb4
--- NOTE | 2019-02-05 23:24 | EDPHYS ---
Physician Documentation [facility] Name: Niru Castro Age: 18 yrs Sex: Female : 2000 Arrival Date: 02/05/2019 Time: 21:00 Bed 15 Private MD: ED Physician Henrik Brownlee HPI: 02/05 22:17 This 18 yrs old Female presents to ER via Ambulatory with complaints of 16 pm1 WEEKS PREG SPOTTING. 22:17 The patient presents with vaginal bleeding that is spotting, with wiping when pm1 urinating. Onset: The symptoms/episode began/occurred today. Modifying factors: The symptoms are alleviated by nothing, the symptoms are aggravated by nothing. Associated signs and symptoms: Pertinent positives: cramping, Pertinent negatives: diarrhea, dyspareunia, dysuria, fever, nausea, vaginal discharge. Severity of symptoms: in the emergency department the symptoms have improved. The patient is sexually active. The patient has not experienced similar symptoms in the past. The patient has not recently seen a physician. 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 - Social history:: Smoking status: Patient/guardian denies using tobacco. - Ebola Screening: : No symptoms or risks identified at this time. ROS: 23:11 Positive for urinary frequency, vaginal bleeding, Negative for vaginal discharge. pm1 23:11 Constitutional: Negative for fever, chills, and weight loss, Eyes: Negative for injury, pm1 pain, redness, and discharge, ENT: Negative for injury, pain, and discharge, Neck: Negative for injury, pain, and swelling, Cardiovascular: Negative for chest pain, palpitations, and edema, Respiratory: Negative for shortness of breath, cough, wheezing, and pleuritic chest pain, Abdomen/GI: Negative for abdominal pain, nausea, vomiting, diarrhea, and constipation, Back: Negative for injury and pain, MS/Extremity: Negative for injury and deformity, Skin: Negative for injury, rash, and discoloration. 23:11 Neuro: Negative for headache, weakness, numbness, tingling, and seizure. Exam: 23:21 Constitutional: This is a well developed, well nourished patient who is awake, alert, pm1 and in no acute distress. Head/Face: Normocephalic, atraumatic. Eyes: Pupils equal round and reactive to light, extra-ocular motions intact. Lids and lashes normal. Conjunctiva and sclera are non-icteric and not injected. Cornea within normal limits. Periorbital areas with no swelling, redness, or edema. ENT: Nares patent. No nasal discharge, no septal abnormalities noted. Tympanic membranes are normal and external auditory canals are clear. Oropharynx with no redness, swelling, or masses, exudates, or evidence of obstruction, uvula midline. Mucous membranes moist. Neck: Trachea midline, no thyromegaly or masses palpated, and no cervical lymphadenopathy. Supple, full range of motion without nuchal rigidity, or vertebral point tenderness. No Meningismus. Chest/axilla: Normal chest wall appearance and motion. Nontender with no deformity. No lesions are appreciated. Cardiovascular: Regular rate and rhythm with a normal S1 and S2. No gallops, murmurs, or rubs. Normal PMI, no JVD. No pulse deficits. Respiratory: Lungs have equal breath sounds bilaterally, clear to auscultation and percussion. No rales, rhonchi or wheezes noted. No increased work of breathing, no retractions or nasal flaring. 23:21 Back: No spinal tenderness. No costovertebral tenderness. Full range of motion. Skin: Warm, dry with normal turgor. Normal color with no rashes, no lesions, and no evidence of cellulitis. MS/ Extremity: Pulses equal, no cyanosis. Neurovascular intact. Full, normal range of motion. 23:21 Abdomen/GI: Inspection: gravid appearance, is noted, Bowel sounds: normal, Palpation: abdomen is soft and non-tender, in all quadrants. 23:21 Neuro: Orientation: is normal, Motor: is normal, moves all fours, Gait: is steady, at a normal pace, without difficulty. Vital Signs: 21:11 BP 98 / 60; Pulse 99; Resp 16; Temp 98.6; Pulse Ox 98% on R/A; Weight 48.53 kg; Height la1 4 ft. 11 in. (149.86 cm); 22:28 BP 93 / 64; Pulse 72; Resp 16; Pulse Ox 100% on R/A; jb4 23:00 BP 96 / 63; Pulse 81; Resp 16; Pulse Ox 100% on R/A; jb4 23:30 BP 95 / 64; Pulse 75; Resp 16; Pulse Ox 99% on R/A; jb4 21:11 Body Mass Index 21.61 (48.53 kg, 149.86 cm) la1 MDM: 21:15 Patient medically screened. pm1 22:16 ED course: 01/03/2019 U/S reviewed and it showed 11 week 1 day IUP. pm1 23:21 Data reviewed: vital signs. Data interpreted: Pulse oximetry: on room air is 100 %. pm1 Interpretation: normal. Counseling: I had a detailed discussion with the patient and/or guardian regarding: the historical points, exam findings, and any diagnostic results supporting the discharge/admit diagnosis, lab results, the need for outpatient follow up, to return to the emergency department if symptoms worsen or persist or if there are any questions or concerns that arise at home. 02/05 21:24 Order name: Quantitative Hcg; Complete Time: 23:10 pm1 02/05 21:24 Order name: Abo/rh Typing; Complete Time: 22:48 pm1 02/05 21:24 Order name: Basic Metabolic Panel; Complete Time: 23:10 pm02/05 21:24 Order name: CBC with Diff; Complete Time: 22:26 pm1 02/05 21:24 Order name: Urine Microscopic Only; Complete Time: 22:48 pm02/05 22:41 Order name: Urine Dipstick--Ancillary (enter results); Complete Time: 23:10 mw2 02/05 21:24 Order name: IV Saline Lock; Complete Time: 22:36 pm1 02/05 21:24 Order name: Labs collected and sent; Complete Time: 22:36 pm1 02/05 21:24 Order name: NPO; Complete Time: 22:36 pm1 02/05 21:24 Order name: Urine Dipstick-Ancillary (obtain specimen); Complete Time: 22:36 pm1 02/05 22:41 Order name: Urine --Ancillary (enter results); Complete Time: 23:10 mw2 Administered Medications: No medications were administered Disposition: 02/06 00:17 Co-signature as Attending Physician, Henrik Brownlee MD. Disposition: 02/05/19 23:22 Discharged to Home. Impression: Threatened . - Condition is Stable. - Discharge Instructions: Threatened Miscarriage, Pelvic Rest. - Medication Reconciliation Form, Thank You Letter, Antibiotic Education, Prescription Opioid Use, Work release form form. - Follow up: Emergency Department; When: As needed; Reason: Worsening of condition. Follow up: Private Physician; When: 2 - 3 days; Reason: Recheck today's complaints, Continuance of care, Re-evaluation by your physician. - Problem is new. - Symptoms have improved. Signatures: Dispatcher [employer] EDMS Alejandro Valle, RN RN la1 Fito Rosen, PERFORMANCE ANALYST PERFORMANCE ANALYST pm1 Rigo Chow RN RN jb4 Henrik Brownlee MD MD Corrections: (The following items were deleted from the chart) 02/05 23:47 23:22 02/05/2019 23:22 Discharged to Home. Impression: Threatened . Condition jb4 is Stable. Forms are Medication Reconciliation Form, Thank You Letter, Antibiotic Education, Prescription Opioid Use. Follow up: Emergency Department; When: As needed; Reason: Worsening of condition. Follow up: Private Physician; When: 2 - 3 days; Reason: Recheck today's complaints, Continuance of care, Re-evaluation by your physician. Problem is new. Symptoms have improved. pm1
== END 2019-02-05 23:47 | disposition home or self-care (01) ==
LOC: ER 20:57
DX: O20.0 Threatened abortion (principal); Z3A.16 16 weeks gestation of pregnancy
CPT/HCPCS: 36415; 80048; 81003; 81015; 81025; 84702; 85025; 86900; 86901; 99284

== ENCOUNTER 2020-09-21 | Emergency (ER) | payer SELFPAY ==
--- OUTSIDE RECORDS SUMMARY | 2020-09-21 20:57 | XMS REPORT | Continuity of Care Document ---
:2000 Author Organization [facility] t Address [address] Conde [address] [place] [address] Care Team Providers Name Role Phone Doctor Unassigned, Name Attending Clinician Unavailable Chandrakant Love DO Attending Clinician Singer FELDMAN Attending Clinician Brittnee HALL S Attending Clinician Shania Bales Attending Clinician Sameer LAI, F Attending Clinician Sophie Vera Attending Clinician Mery HENSON Attending Clinician Unavailable Pillo LAI, R Attending Clinician Sophie Vera Admitting Clinician Problems This patient has no known problems. Allergies, Adverse Reactions, Alerts This patient has no known allergies or adverse reactions. Medications This patient has no known medications. Procedures This patient has no known procedures. Encounters Start End Encounter Admission Attending Care Care Encounter Source Date/Time Date/Time Type Type Clinicians Facility Department ID 2020-08-22 2020-08-22 Orders Doctor VALLES [id number] 00:00:00 00:00:00 Only UnassKILLIAN arnold [id number] [place] [facility] [id number] 2020-08-06 2020-08-06 Emergency GURJIT Love [id number] 12:16:00 14:18:00 Doris Valdes [id number] [place] [id number] [place] [address] [id number] 2020-07-10 2020-07-10 Emergency , [facility] [id number] 09:03:00 10:00:00 Peter Keisha [id number] [place] [id number] [place] [address] [id number] 2020-07-10 2020-07-10 Orders Doctor VALLES [id number] 00:00:00 00:00:00 Only Unassigned, KILLIAN [id number] [place] [facility] [id number] 2020-05-29 2020-05-29 Emergency Brittnee, [facility] [id number] 21:53:00 23:40:00 Dedrick Valdes [id number] [place] [id number] [place] [address] [id number] 2019-12-13 2019-12-13 Emergency Katie Tran [facility] [id number] 10:58:13 11:51:00 Shania Valdes [id number] [place] [id number] [place] [address] [id number] 2019-12-13 2019-12-13 Orders Doctor VALLES [id number] 00:00:00 00:00:00 Only Unassigned, KILLIAN [id number] [place] [facility] [id number] 2019-12-09 2019-12-09 Emergency Sameer, [facility] [id number] 17:21:03 21:13:00 Marlon Valdes [id number] [place] [id number] [place] [address] [id number] 2019-12-09 2019-12-09 Orders Doctor VALLES [id number] 00:00:00 00:00:00 Only Unassigned, KILLIAN [id number] [place] [facility] [id number] [id number] 2019-07-05 2019-07-08 Hospital Sophie REENA [id number] 23:58:00 14:34:00 Encounter Haydenarmenehsan KILLIAN [id number] s [facility] [id number] 2019-07-05 2019-07-05 Nurse Luda Ordonez [id number] 00:00:00 00:00:00 Triage KILLIAN [id number] [place] [id number] 2019-06-29 2019-06-29 Routine GURJIT Ferro [id number] 12:49:05 13:31:19 Srikanth Mcleod DIESEL ENGINE OPERATOR [id number] Visit [facility] [id number] MATERNAL [id number] & CHILD [address] [place] [address] 2019-05-30 2019-05-30 Patient Doctor REENA [id number] 00:00:00 00:00:00 Secure Msg Unassigned, KILLIAN [id number] [place] [id number] Results This patient has no known results.
--- OUTSIDE RECORDS SUMMARY | 2020-09-21 20:58 | XMS REPORT | Summary of Care ---
:2000 Author Organization [facility] - Health Address [address] [place] [address] Care Team Providers Name Role Phone Pcp, Does Not Have A Primary Care Provider Encounter Details Date Type Department Care Team Description 07/10/2020 Orders Only [facility] Doctor Unassigned, No [address] [facility] [place] [address] [address] [place] [address] Allergies No Known Allergiesdocumented as of this encounter (statuses as of 07/10/2020) Medications Medication Sig Dispensed Refills Start Date End Date Status ondansetron 4 mg Take 1 tablet by 12 tablet 0 12/09/2019 Active disintegrating mouth every 8 tabletIndications: (eight) hours as Suprapubic pain needed for Nausea and Vomiting (N/V). dicyclomine 20 mg Take 1 tablet by 20 tablet 0 05/29/2020 Active tabletIndications: mouth every 6 Epigastric pain (six) hours as needed for Abdominal pain. ondansetron (ZOFRAN) 4 Take 1 tablet by 12 tablet 0 05/29/2020 Active mg tabletIndications: mouth every 8 Epigastric pain (eight) hours as needed for Nausea and Vomiting (N/V). Hospital, Clinic, or Other Ordered Dose Route Frequency Start Date End Date Status Facility Administered Medication medroxyPROGESTERone 150 mg IM [id number] 08/19/2019 0 Active (DEPO-PROVERA) injection 150 mgIndications: Encounter for initial prescription of contraceptives, unspecified contraceptive documented as of this encounter (statuses as of 07/10/2020) Active Problems No known active problemsdocumented as of this encounter (statuses as of 07/10/2020) Resolved Problems Problem Noted Date Resolved Date care and examination of lactating mother 07/28/2008/18/2019 (spontaneous vaginal delivery) 07/08/201908/18 Single live 07/08/2019 08/18/2019 Rubella non-immune status, antepartum 07/08/2019 38 weeks gestation of 07/06/2019 08/18/20 19 Indication for care or intervention in labor or delivery-IOL 07/06/2019 08/18/2019 for decreased FM Decreased movement 07/06/2019 08/18/2019 [place] contraction 06/22/2019 07/06/2019 uterine contractions 06/11/2019 07/06/2019 34 weeks gestation of 05/20/2019 07/06/20 19 BV (bacterial vaginosis) 05/09/2019 07/06/2019 29 weeks gestation of 05/09/2019 07/06/20 19 27 weeks gestation of 04/22/2019 07/06/20 19 24 weeks gestation of 04/02/2019 07/06/20 19 Round ligament pain 04/02/2019 07/06/2019 High-risk in third trimester 01/26/2019 1 History of miscarriage, currently 01/11/2019 08/18/2019 Primigravida in third trimester 01/11/2019 08/18/20 19 Chlamydia trachomatis infection of lower genitourinary sites 12/03/2018 08/18/2019 Overview: MEGAN neg Nausea and vomiting during prior to 22 weeks 11/2604/12/2019 gestation Urine ketones 11/26/2018 07/06/2019 Diabetes 10/19/2012 11/29/2018 Overview: managed by diet documented as of this encounter (statuses as of 07/10/2020) Immunizations Name Administration Dates Next Due HPV9 08/18/2019 Influenza Virus Vaccine 11/26/2018 Influenza Virus Vaccine Quad .5 mL 08/18/2019, 11/26/2018 IM 6+ MO MMR 07/08/2019 (Deferred: - not delivered from pharmacy.) TDAP 04/26/2019 documented as of this encounter Social History Tobacco Use Types Packs/Day Years Used Date Never Smoker Smokeless Tobacco: Never Used Alcohol Use Drinks/Week oz/Week Comments Yes socially Sex Assigned at Date Recorded Not on file documented as of this encounter Last Filed Vital Signs Not on filedocumented in this encounter Plan of Treatment Health Maintenance Due Date Last Done Comments HPV VACCINES (2 - 3-dose 09/15/2019 08/18/2019 series) INFLUENZA VACCINE (#1) 2020 08/18/2019, 11/26/2018, 11/26/2018 CHLAMYDIA SCREENING 08/18/2020 08/18/2019, 06/22/2019, 06/11/2019, Additional history exists MENINGOCOCCAL B VACCINES (1 08/18/2020 Post poned from of 2 - Risk Bexsero 2-dose 06/16 (Insurance / series) Financial) Depression Screening 09/01/2020 09/01/2019 PAP SMEAR 08/18/2022 08/18/2019 DTaP,Tdap,and Td Vaccines 04/26/2029 04/26/2019 (2 - Td) MENINGOCOCCAL VACCINE Aged Out No longer eligible based on patient 's age to complete this topic PNEUMOCOCCAL 0-64 YEARS Aged Out No longe r eligible COMBINED SERIES based on patient 's age to complete this topic documented as of this encounter Procedures Procedure Name Priority Date/Time Associated Diagnosis Comme nts CONSENT/REFUSAL FOR Routine 07/10/2020 8:50 AM CDT DIAGNOSIS AND TREATMENT documented in this encounter Results Not on filedocumented in this encounter Insurance Payer Benefit Plan / Subscriber ID Effective Phone Address T ype Group Dates MEDICAID MEDICAID PENDING 2019-Pres [address] [place] [address] MEDICAID MEDICAID PENDING 2020-Pres [address] [place] [address] documented as of this encounter Advance Directives Name Relationship Healthcare Agent Communication Relationship Alysa Castro Mother Health Care Agent
--- OUTSIDE RECORDS SUMMARY | 2020-09-21 20:58 | XMS REPORT | Summary of Care ---
:2000 Author Organization [facility] - [facility] Address [address] [place] [address] Care Team Providers Name Role Phone Pcp, Does Not Have A Primary Care Provider Reason for Visit Reason Comments Other weak left arm Auth/Cert Status Reason Specialty Diagnoses / Referred By Referred To Procedures Contact Contact Emergency Medicine [facility] ergency Dept [address] [place] [address] Fax: Encounter Details Date Type Department Care Team Description 08/06/2020 Emergency ADC-Emergency Doris Love Neck pa in (Primary Dx) Department DO [address] [place] [id number] [phone] Allergies No Known Allergiesdocumented as of this encounter (statuses as of 08/06/2020) Medications Medication Sig Dispensed Refills Start Date [...] as needed for Nausea and Vomiting (N/V). naproxen sodium (ANAPROX Take 1 tablet by 30 tablet 0 07/10/20 20 Active DS) 550 mg mouth 2 (two) tabletIndications: times daily with Closed nondisplaced meals. fracture of distal phalanx of lesser toe of left foot, initial encounter methylPREDNISolone Take by mouth 21 Each 0 07/10/2020 Active (MEDROL, KAYLIN,) 4 mg SEE-INSTRUCTIONS tabletsIndications: . follow package Closed nondisplaced directions fracture of distal phalanx of lesser toe of left foot, initial encounter acetaminophen-codeine Take 1 tablet by 20 tablet 0 07/10/2020 Active (TYLENOL-CODEINE #3) mouth every 4 300-30 mg (four) hours as tabletIndications: acute needed for Pain pain (scale 7-10). Indications: acute pain cyclobenzaprine 10 mg Take 1 tablet by 9 tablet 0 08/06/2020 Active tabletIndications: Neck mouth 3 (three) pain times daily as needed for Muscle Spasms. documented as of this encounter (statuses as of 08/06/2020) Active Problems No known active problemsdocumented as of this encounter (statuses as of 08/06/2020) Resolved Problems Problem Noted Date Resolved Date care and examination of lactating mother 07/28/2008/18/2019 (spontaneous vaginal delivery) 07/08/201908/18 Single live 07/08/2019 08/18/2019 Rubella non-immune status, antepartum 07/08/2019 38 weeks gestation of 07/06/2019 08/18/20 19 Indication for care or intervention in labor or delivery-IOL 07/06/2019 08/18/2019 for decreased FM Decreased movement 07/06/2019 08/18/2019 Rob Hick's contraction 06/22/2019 07/06/2019 uterine contractions 06/11/2019 [...] 08/18/2019 Primigravida in third trimester 01/11/2019 08/18/20 Chlamydia trachomatis infection of lower genitourinary sites 12/03/2018 08/18/2019 Overview: MEGAN neg Nausea and vomiting during prior to 22 weeks 11/2604/12/2019 gestation Urine ketones 11/26/2018 07/06/2019 Diabetes 10/19/2012 11/29/2018 Overview: managed by diet documented as of this encounter (statuses as of 08/06/2020) Immunizations Name Administration Dates Next Due HPV9 [...] Assigned at Date Recorded Not on file COVID-19 Exposure Response Date Recorded In the last month, have you been in contact with No / Unsure 08/06/2020 12:03 PM CDT someone who was confirmed or suspected to have Coronavirus / COVID-19? 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 Neck Pain 2. Cervical radiculopathy NO LIFE-THREATENING FINDINGS ON TODAY'S EXAM. PROCEDURES IN THE ER TODAY: None MEDICATIONS ADMINISTERED IN THE ER TODAY: Flexeril Fentanyl YOUR PRESCRIPTIONS AND [id number] MEDICATION RECOMMENDATIONS: Flexeril by mouth every 8 hours as needed for neck pain. Do not drive while taking this medication. You may use over the counter anti-inflammatories such as Advil or Motrin three times a day with foodas needed for pain. You may use warm compresses, icy hot/angel grace and massage as needed for pain. SPECIAL CARE INSTRUCTIONS: None FOLLOW-UP RECOMMENDATIONS: RECOMMEND FOLLOW-UP WITH A PRIMARY CARE PROVIDER OR SPECIALIST IN 2-5 DAYS, ESPECIALLY IF NO IMPROVEMENT IN SYMPTOMS. TO FOLLOW-UP WITHIN THE [facility], TRY THESE OPTIONS (CLINIC APPOINTMENTS AVAILABLE ON [id number] BASIS): 1. SCHEDULE AN APPOINTMENT ONLINE AT WWW[facility] 2. OR CALL THE [facility] AT OR 3. OR CALL YOUR [facility] PHYSICIAN'S OFFICE DIRECTLY IF YOU ARE ALREADY AN ESTABLISHED [facility] PATIENT. OR, YOU MAY FOLLOW-UP WITH A PROVIDER OF YOUR CHOICE, SUCH : 1. A PHYSICIAN OF YOUR CHOICE 2. [facility], . LOCATIONS IN [facility] 3. [facility], [address] [place] [address]; [phone] RETURN TO ER FOR WORSENING OF SYMPTOMS. AttachmentsThe following attachments cannot be sent through Care Everywhere. Cervical Radiculopathy, Understanding (Montserratian)documented in this encounter ED Notes Rea Hernadez RN - 08/06/2020 12:12 PM CDTPatient arrived via private car with c/o left sided weakness; MD with patient at this time. Patientis tearful. Doris Acosta DO - 08/06/2020 12:03 PM CDT [facility] Emergency Department Note Patient Name: Niru Castro Date of : 2000 20 year old female [facility] Primary Care Physician: PATIENT DOES NOT HAVE A PCP Patient Escorted by: Self [9] Mode of Arrival: Personal means [1] EMS Treatment Prior to ED Arrival: [employer]S [place] treatment: None Travel and Exposure Screening: Symptoms Does patient have any of these symptoms?: (not recorded) Exposure Screening Has patient had contact with someone with a communicable disease in the last month?: (not recorded) Diseases exposed to:: (not recorded) Is Patient ?: (not recorded) Exposure Date: (not recorded) Chief Complaint: Chief Complaint Patient presents with Other weak left arm History of Present Illness: Patient presents for eval for left 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 Denies injury or trauma. No meds for sx. Is right handed. No BURRIS. No blurry vision or trouble speaking. States she had a stroke before. Denies h/o htn or dm. Does not smoke. Here for eval. Past Medical History/Immunizations: Past Medical History: Diagnosis Date BV (bacterial vaginosis) 05/09/2019 High blood sugar Ovarian cyst Tetanus received in last 5 years: Unknown Childhood immunizations: Up-to-date Allergies: No Known Allergies Past Social History: Tobacco Use Never smoked or used smokeless tobacco. Alcohol Use Yes. Comments: socially Drug Use No. Sexual Activity Sexually active; Partners: Male; Control/Protection: Condom. Comments: last sexual intercourse 08/16/2019 Past Surgical History: Past Surgical History: Procedure Laterality Date APPENDECTOMY 2016 HERNIA REPAIR Review of Systems: Review of Systems Constitutional: Negative for chills and fever. Respiratory: Negative for shortness of breath. Cardiovascular: Negative for chest pain. Gastrointestinal: Negative for abdominal pain, nausea and vomiting. Genitourinary: Negative for dysuria. Musculoskeletal: Positive for neck pain. Negative for arthralgias and neck stiffness. Skin: Negative for wound. Neurological: Positive for weakness. Negative for dizziness. Psychiatric/Behavioral: Negative for agitation. Physical Exam: ED Triage Vitals [08/06/20 1213] Weight 54.4 kg (120 lb) Actual or estimated Estimated by patient/family report Height BP (!) 146/101 Pulse 99 Resp 18 Temp 36.6 C (97.8 F) Temp source Oral SpO2 98 % Measured on Room air Physical Exam Vitals signs and nursing note reviewed. Constitutional: Appearance: Normal appearance. She is normal weight. HENT: Head: Normocephalic and atraumatic. Eyes: Extraocular Movements: Extraocular movements intact. Neck: Musculoskeletal: Normal range of motion and neck supple. Comments: Tightness and tenderness to left SCM Cardiovascular: Rate and Rhythm: Normal rate. Pulmonary: Effort: Pulmonary effort is normal. No respiratory distress. Abdominal: General: Abdomen is flat. There is no distension. Palpations: There is no mass. Tenderness: There is no abdominal tenderness. There is no guarding. Musculoskeletal: Normal range of motion. Skin: General: Skin is warm and dry. Neurological: General: No focal deficit present. Mental Status: She is alert and oriented to person, place, and time. 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 Lab Results (24h): No results found for this or any previous visit (from the past 24 hour(s)). Orders and Treatments: No orders of the defined types were placed in this encounter. 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 Denies injury or trauma. Is right handed. No meds for sx. States has h/o CVA in the past. VSS here in the EC. Tight and tender left SCM. No focal neuro deficits. No concern for CVA. Suspect radicular sx. Will give pain meds. Anticipate discharge home later. 1400 - pain much improved. Patient feeling better. Stable here in the EC and is ok for discharge home with PCP f/u. Flexeril tid prn, nsaids tid with food, warm compresses, icy hot, massage. MDM: Coding Scoring Tools: No data recorded Diagnosis/Impression: ICD-10-CM ICD-9-CM 1. Neck pain M54.2 723.1 Disposition/Condition: ED Disposition ED Disposition Condition Comment Disch - Home Stable Discharge Medications: Patient's Medications START taking these medications CYCLOBENZAPRINE 10 MG TABLET Take 1 tablet by mouth 3 (three) times daily as needed for Muscle Spasms. CONTINUE taking these medications which have NOT CHANGED ACETAMINOPHEN-CODEINE (TYLENOL-CODEINE #3) 300-30 MG TABLET Take 1 tablet by mouth every 4 (four) hours as needed for Pain (scale 7-10). Indications: acute pain DICYCLOMINE 20 MG TABLET Take 1 tablet by mouth every 6 (six) hours as needed for Abdominal pain. METHYLPREDNISOLONE (MEDROL, KAYLIN,) 4 MG TABLETS Take by mouth SEE- INSTRUCTIONS. follow package directions NAPROXEN SODIUM (ANAPROX DS) 550 MG TABLET Take 1 tablet by mouth 2 (two) times daily with meals. ONDANSETRON (ZOFRAN) 4 MG TABLET Take 1 tablet by mouth every 8 (eight) hours as needed for Nausea and Vomiting (N/V). ONDANSETRON 4 MG DISINTEGRATING TABLET Take 1 tablet by mouth every 8 (eight) hours as needed for Nausea and Vomiting (N/V). START taking Modified Medications as Prescribed No medications on file STOP taking these medications No medications on file Follow-up: Electronically signed by: Doris Love DO 08/06/2020 12:16 PM documented in this encounter Miscellaneous Notes ED Nurse Note - Cora Greene RN - 08/06/2020 2:18 PM CDTPt given printed and verbal discharge instructions Prescriptions provided Flexeril Pt verbalized understanding of instructions, pt awake alert oriented, resp reg unlabored, skin w/d, color appropriate for race, moves all ext well,pt encouraged to follow up with pcp Advised to seek medical attention for new/prolonged/worsening of symptoms, No adverse reaction to meds given in ER noted upon discharge Awake, alert oriented, resp reg unlabored, skin w/d, pt leaving amb with steady gait, in no apparent distress, documented in this encounter Plan of Treatment Health [...] Associated Diagnosis Comme nts CONSENT/REFUSAL FOR Routine 08/06/2020 12:03 PM CDT DIAGNOSIS AND TREATMENT documented in this encounter Results Not on filedocumented in this encounter Visit Diagnoses Diagnosis Neck pain - Primary Cervicalgia documented in this encounter Administered Medications Medication Order MAR Action Action Date Dose Rate Site cyclobenzaprine (FLEXERIL) tablet Given 08/06/2020 1:08 PM CDT 10 mg 10 mg 10 mg, Oral, ONCE, 1 dose, 08/06/20 at 1330, Routine FENTanyl PF (SUBLIMAZE (PF)) Given 08/06/2020 1:10 PM CDT 50 mc g Right Deltoid-IM injection 50 mcg 50 mcg, Intramuscular, ONCE, 1 dose, 08/06/20 at 1330, Routine documented in this encounter Advance Directives Name Relationship Healthcare Agent Communication Relationship Alysa Castro Mother Health Care Agent
--- OUTSIDE RECORDS SUMMARY | 2020-09-21 20:58 | XMS REPORT | Summary of Care ---
:2000 Author Organization [facility] - [facility] Address [address] [place] [address] Care Team Providers Name Role Phone Pcp, Does Not Have A Primary Care Provider Reason for Referral Radiology Services (STAT) Status Reason Specialty Diagnoses / Referred By Referred To Procedures Contact Contact Pending Review Diagnostic Diagnoses Acute foot pain, left Peter Dominguez, Radiology Procedures XR FOOT 3+ VW LEFT XR FOOT <3 VW LEFT DO 301 [facility]. RT [address] [place] [address] Reason for Visit Reason Comments Toe Pain Auth/Cert Status Reason Specialty Diagnoses / Referred By Referred To Procedures Contact Contact Emergency Medicine [facility] ergency Dept [address] [place] [address] Fax: Encounter Details Date Type Department Care Team Description 07/10/2020 Emergency [facility]-Emergency Peter Dominguez DO Acute foot pain, left (Primary Dx); Department [address] [place] [address]. Closed nondisplaced fracture of distal p halanx of lesser toe of left foot, initial encounter 132 [facility] [address] [place] [address] [place] [address] [phone] Allergies No Known Allergiesdocumented as of this [...] lesser toe of left foot, initial encounter methocarbamoL 500 mg Take 1 tablet by 15 tablet 0 07/10/2020 0 Active tabletIndications: mouth 3 (three) 0 Closed nondisplaced times daily for fracture of distal 5 days. phalanx of lesser toe of left foot, initial encounter acetaminophen-codeine Take 1 tablet by 20 tablet 0 07/10/2020 Active (TYLENOL-CODEINE #3) mouth every 4 300-30 mg (four) hours as tabletIndications: acute needed for Pain pain (scale 7-10). Indications: acute pain Hospital, Clinic, or Other Ordered Dose Route Frequency Start Date End Date Status Facility Administered Medication medroxyPROGESTERone 150 mg IM [id number] 08/19/2019 0 Active (DEPO-PROVERA) injection 150 mgIndications: Encounter for initial prescription of contraceptives, unspecified contraceptive documented as of this encounter (statuses as of 07/10/2020) Active Problems No known active problemsdocumented as of this encounter (statuses as of 07/10/2020) Resolved Problems Problem Noted Date Resolved Date care and examination of lactating mother 07/28/20 19 08/18/2019 (spontaneous vaginal delivery) 07/08/201908/18 Single live 07/08/2019 [...] been in contact with No / Unsure 07/10/2020 9:00 AM CDT someone who was confirmed or suspected to have Coronavirus / COVID-19? 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 PROCEDURES IN THE ER TODAY: Orders Placed This Encounter Procedures XR FOOT <3 VW LEFT MEDICATIONS ADMINISTERED IN THE ER TODAY AND DISCHARGE MEDICATIONS: No orders of the defined types were placed in this encounter. FOLLOW-UP RECOMMENDATIONS: RECOMMEND FOLLOW-UP WITH A PRIMARY CARE PROVIDER OR SPECIALIST IN 2-5 DAYS, ESPECIALLY IF NO IMPROVEMENT IN SYMPTOMS. MAY FOLLOW-UP WITH A PROVIDER OF YOUR CHOICE, SUCH : 1. A PHYSICIAN OF YOUR CHOICE 2. [facility], . LOCATIONS IN [facility] 3. [facility], [address] [place] [address]; [phone] OR, IF YOU WISH TO FOLLOW-UP WITHIN THE [facility], MAY TRY THESE OPTIONS (CLINIC APPOINTMENTS AVAILABLE ON [id number] BASIS): 1. SCHEDULE AN APPOINTMENT ONLINE AT [email or web address] 2. OR CALL THE [facility] ACCESS [facility] AT OR 3. OR CALL YOUR [facility] PHYSICIAN'S OFFICE DIRECTLY IF YOU ARE ALREADY AN ESTABLISHED [facility] PATIENT. RETURN TO ER FOR WORSENING OF SYMPTOMS. AttachmentsThe following attachments cannot be sent through Care Everywhere. Fracture, Finger and Toe (Broken Finger or Toe) (Iraqi)documented in this encounter ED Notes Mariah Marc RN - 07/10/2020 9:00 AM CDTPatient c/o left great toe pain after injuring it yesterday. RAULPeter barba DO - 07/10/2020 8:50 AM CDT EMERGENCY DEPARTMENT ENCOUNTER [facility] Patient Name: Niru Castro Date of : 2000 20 year old Exam Room:[address] Primary Care Physician: PATIENT DOES NOT HAVE A PCP Pre- Hospital Patient Escorted by: Self [9] Mode of Arrival: Personal means [1] EMS Treatment Prior to ED Arrival: Chief Complaint Chief Complaint Patient presents with Toe Pain HPI Niru Castro is a 20 year old female with left 4th toe pain. Stubbed it while running after child. Pain is mild to moderate. Has some numbness after event. Mild bruising. Past Medical History / Immunizations Past Medical History: Diagnosis Date BV (bacterial vaginosis) 05/09/2019 High blood sugar Ovarian cyst Tetanus received in last 5 years: Yes Childhood immunizations: Up-to-date Past Surgical History Past Surgical History: Procedure Laterality Date APPENDECTOMY 2016 HERNIA REPAIR Allergies No Known Allergies Social History Tobacco Use Never smoked or used smokeless tobacco. Alcohol Use Yes. Comments: socially Drug Use No. Sexual Activity Sexually active; Partners: Male; Control/Protection: Condom. Comments: last sexual intercourse 08/16/2019 Review of Systems Review of Systems Constitutional: Negative. HENT: Negative. Gastrointestinal: Negative for nausea and vomiting. Musculoskeletal: Positive for arthralgias. Skin: Positive for color change. Neurological: Negative for headaches. Physical Exam BP 115/73 | Pulse 89 | Temp 36.9 C (98.4 F) (Oral) | Resp 16 | Wt 56.2 kg (124 lb) | SpO2 98% | BMI 25.04 kg/m Physical Exam Constitutional: General: She is not in acute distress. Appearance: She is well-developed. HENT: Head: Normocephalic and atraumatic. Eyes: Pupils: Pupils are equal, round, and reactive to light. Neck: Musculoskeletal: Normal range of motion. Cardiovascular: Rate and Rhythm: Normal rate. Pulses: Dorsalis pedis pulses are 2+ on the left side. Posterior tibial pulses are 2+ on the left side. Pulmonary: Effort: Pulmonary effort is normal. Abdominal: General: There is no distension. Musculoskeletal: Left foot: Decreased range of motion. No deformity. Feet: Left foot: Skin integrity: Skin integrity normal. Toenail Condition: Left toenails are normal. Skin: General: Skin is warm and dry. Neurological: Mental Status: She is alert and oriented to person, place, and time. Labs No results found for this or any previous visit (from the past 24 hour(s)). Imaging No results found for this visit on 07/10/20. Orders and Treatments Orders Placed This Encounter Procedures XR FOOT <3 VW LEFT Orders Placed This Encounter Medications naproxen sodium (ANAPROX DS) 550 mg tablet methylPREDNISolone (MEDROL, KAYLIN,) 4 mg tablets methocarbamoL 500 mg tablet acetaminophen-codeine (TYLENOL-CODEINE #3) 300-30 mg tablet Procedures See ED Procedure Note Notes & MDM Patient was evaluated for an emergency medical condition related to Toe Pain . Differential diagnoses considered by presenting complaints but not limited to: Fracture, sprain, strain. Labs:were not ordered. Imaging:Ordered, and resulted, any relevant abnormalities were considered. IV fluids: not indicated Procedures:were not performed. Assessment: Niru Castro is a 20 year old female with closed non-displaced fracture of phalanges of 4th toe. Hard sole shoe. Referral to Jon. History, physical exam findings, results of visit, differential diagnosis, medication regimens and plan of future care have been considered. Additional MDM may be found in the ED course. Differential diagnosis considered and final disposition made based on information gathered during evaluation and may not be completely ruled out or specifically listed. Vital signs were rechecked before final disposition and determined to be stable. Diagnosis ICD-10-CM ICD-9-CM 1. Acute foot pain, left M79.672 729.5 2. Closed nondisplaced fracture of distal phalanx of lesser toe of left foot, initial encounter S92.535A 826.0 Disposition & Follow Up ED Disposition ED Disposition Condition Comment Disch - Home Stable Patient's Medications START taking these medications ACETAMINOPHEN-CODEINE (TYLENOL-CODEINE #3) 300-30 MG TABLET Take 1 tablet by mouth every 4 (four) hours as needed for Pain (scale 7-10). Indications: acute pain METHOCARBAMOL 500 MG TABLET Take 1 tablet by mouth 3 (three) times daily for 5 days. METHYLPREDNISOLONE (MEDROL, KAYLIN,) 4 MG TABLETS Take by mouth SEE- INSTRUCTIONS. follow package directions NAPROXEN SODIUM (ANAPROX DS) 550 MG TABLET Take 1 tablet by mouth 2 (two) times daily with meals. CONTINUE taking these medications which have NOT CHANGED DICYCLOMINE 20 MG TABLET Take 1 tablet by mouth every 6 (six) hours as needed for Abdominal pain. ONDANSETRON (ZOFRAN) 4 MG TABLET Take 1 tablet by mouth every 8 (eight) hours as needed for Nausea and Vomiting (N/V). ONDANSETRON 4 MG DISINTEGRATING TABLET Take 1 tablet by mouth every 8 (eight) hours as needed for Nausea and Vomiting (N/V). START taking Modified Medications as Prescribed No medications on file STOP taking these medications No medications on file Contact information for follow-up Tony Webb MD Specialty: ORT-ORTHOPAEDIC SURGERY [address] [place] [phone] [facility]gency Department Specialty: Emergency Medicine [address] [place] [address] Instructions: If symptoms worsen as documented in the discharge Peter Dominguez DO 07/10/2020 9:10 AM ACTIVE COVID-19 PANDEMIC. documented in this encounter Miscellaneous Notes ED Nurse Note - Geneva Montaño RN - 07/10/2020 9:51 AM CDTPt given printed and verbal discharge instructions regarding left non displaced fracture of lesser di stal phalanx, encouraged hydration, 4 Prescriptions provided, medrol dose pack, Tylenol # 3, robaxin, and naproxen. Discussed Tylenol # 3 side affects and to avoid driving/operating machinery/or engaging in activities requiring alertness while taking. Pt verbalized understanding of instructions, pt awake alert oriented, resp reg unlabored, skin w/d, color appropriate for race, moves all ext well,pt encouraged to follow up with Dr. Webb. Advised to seek medical attention for new/prolonged/worsening of symptoms, Awake, alert oriented, resp reg unlabored, skin w/d, pt leaving amb with steady gait, in no apparent distress, D Nurse Note - Geneva Montaño RN - 07/10/2020 9:50 AM CDTLeft affected toe cayetano tapped and post op shoe applied to left foot. documented in this encounter Plan of Treatment [...] Name Priority Date/Time Associated Diagnosis Comme nts XR FOOT 3+ VW LEFT STAT 07/10/2020 9:25 AM Acute foot lilian n, Results for this CDT left procedure are i n the results section. documented in this encounter Results XR FOOT 3+ VW LEFT (07/10/2020 9:25 AM CDT) Specimen Narrative Performed At HISTORY: Pain. PACS/VR/DOSE FINDINGS: AP, lateral, oblique views of left foot showed nondisplaced spiral fracture in the mid/distal shaft portion of proximal phalanx of fourth toe. No significant changes of arthritis or agg ressive bone lesions seen. CONCLUSIONS: Spiral nondisplaced fractur e involving proximal phalanx of left fourth toe. Procedure Note [facility], Radiant Results Inft User - 2019 9:29 AM CDT HISTORY: Pain. FINDINGS: AP, lateral, oblique views of left foot showed nondisplaced spiral fracture in the mid/distal shaft portion of proximal phalanx of fourth toe. No significant changes of ar thritis or aggressive bone lesions seen. CONCLUSIONS: Spiral nondisplaced fractur e involving proximal phalanx of left fourth toe. Performing Organization Address City/State/Zipcode Phone Number PACS/VR/DOSE documented in this encounter Visit Diagnoses Diagnosis Acute foot pain, left - Primary Closed nondisplaced fracture of distal p halanx of lesser toe of left foot, initial encounter documented in this encounter Insurance Payer Benefit Plan / Subscriber ID Effective Phone Address T ype Group Dates MEDICAID MEDICAID PENDING 2020-[address] [place] [address] documented as of this encounter Advance Directives Name Relationship Healthcare Agent Communication Relationship Alysa Castro Mother Health Care Agent "
--- OUTSIDE RECORDS SUMMARY | 2020-09-21 20:59 | XMS REPORT | Summary of Care ---
:2000 Author Organization [facility] - Health Address [address] [place] [address] Care Team Providers Name Role Phone Pcp, Does Not Have A Primary Care Provider Encounter Details Date Type Department Care Team Description 08/22/2020 Orders Only [facility] Doctor Unassigned, No 301 [facility] [place] [address] [address] [place] [address] Allergies No Known Allergiesdocumented as of this encounter (statuses as of 08/24/2020) Medications Medication Sig Dispensed Refills Start Date [...] as of this encounter (statuses as of 08/24/2020) Active Problems No known active problemsdocumented as of this encounter (statuses as of 08/24/2020) Resolved Problems Problem Noted Date Resolved Date care and examination of lactating mother 07/28/2008/18/2019 (spontaneous vaginal delivery) 07/08/201908/18 Single live 07/08/2019 08/18/2019 Rubella non-immune status, antepartum 07/08/2019 38 weeks gestation of 07/06/2019 08/18/20 19 Indication for care or intervention in labor or delivery-IOL 07/06/2019 08/18/2019 for decreased FM Decreased movement 07/06/2019 08/18/2019 [place] Hick's contraction 06/22/2019 07/06/2019 uterine contractions 06/11/2019 [...] as of this encounter (statuses as of 08/24/2020) Immunizations Name Administration Dates Next Due HPV9 [...] Health Maintenance Due Date Last Done Comments MENINGOCOCCAL B VACCINES (1 2008 of 2 - Risk Bexsero 2-dose series) HPV VACCINES (2 - 3-dose 09/15/2019 08/18/2019 series) INFLUENZA VACCINE (#1) 2020 08/18/2019, 11/26/2018, 11/26/2018 CHLAMYDIA SCREENING 08/18/2020 08/18/2019, 06/22/2019, 06/11/2019, Additional history exists Depression Screening 09/01/2020 09/01/2019 PAP SMEAR 08/18/2022 08/18/2019 DTaP,Tdap,and Td Vaccines (2 04/26/2029 04/26/2019 - Td) MENINGOCOCCAL VACCINE Aged Out No longer eligible based on patient 's age to complete this topic PNEUMOCOCCAL 0-64 YEARS Aged Out No longe r eligible COMBINED SERIES based on patient 's age to complete this topic documented as of this encounter Procedures Procedure Name Priority Date/Time Associated Diagnosis Comme nts AUTHORIZATION FOR RELEASE Routine 08/22/2020 12:01 AM 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
--- NOTE | 2020-09-21 22:19 | ER ---
Nurse's Notes [facility] Name: Niru Castro Age: 20 yrs Sex: Female : 2000 Arrival Date: 09/21/2020 Time: 20:56 Bed Waiting Private MD: Diagnosis: ED Course: 09/21 20:56 Patient arrived in ED. cl3 21:54 Patient's name was called from ER lobby. No response. Unable to locate patient. Will lp1 disposition as left without being seen by a provider. 21:56 Ne Caballero FNP-C [facility] kb 21:56 Jose Waters MD is Attending Physician. kb Administered Medications: No medications were administered Outcome: 22:18 Patient left the ED. lp1 Signatures: Ne Caballero FNP-C FNP-Ckb Pena, Laura, RN RN lp1 Musa Lozano cl3
== END 2020-09-21 22:18 | disposition left against medical advice (07) ==
DX: Z02.9 Encounter for administrative examinations, unspecified (principal)

== ENCOUNTER 2020-10-19 21:40 | Emergency (ER) | payer SELFPAY ==
--- OUTSIDE RECORDS SUMMARY | 2020-10-19 21:50 | XMS REPORT | Continuity of Care Document ---
:2000 Author Organization [facility] t Address [address] [place] [address] Dr. Miles. [address] [place] [address] Care Team Providers Name Role Phone Shani Guevara Attending Clinician Doctor Unassigned, Name Attending Clinician Unavailable Chandrakant [...] Date/Time Type Type Clinicians Facility Department ID 2020-09-25 2020-09-25 Emergency GURJIT Martin [id number] 18:31:00 20:56:00 Nettie Valdes [id number] [place] 4.2.7.2.686 [place] [id number] 2020-09-25 2020-09-25 Orders Doctor VALLES [id number] 00:00:00 00:00:00 Only Unassigned, KILLIAN [id number] [facility] 4.2.7.2.686 [id number] 2020-08-22 2020-08-22 Orders Doctor VALLES [id number] 00:00:00 00:00:00 Only Unassigned, KILLIAN [id number] [facility] 4.2.7.2.686 [id number] [id number] 2020-08-06 2020-08-[address] [facility] [id number] 12:16:00 14:18:00 Doris Valdes [id number] [place] 4.2.7.2.686 [place] [address] [id number] 2020-07-10 2020-07-10 [facility] [id number] 09:03:00 10:00:00 Peter Valdes 350.1.13.10 [place] 4.2.7.2.686 [place] [id number] [id number] 2020-07-10 2020-07-10 Orders Doctor VALLES 1.2.840.114 [id number] 00:00:00 00:00:00 Only Unassigned, KILLIAN 350.1.13.10 [place] [facility] 4.2.7.2.686 [id number] [id number] 2020-05-29 2020-05-29 Emergency [facility] [id number] 21:53:00 23:40:00 Dedrick Valdes 350.1.13.10 [place] 4.2.7.2.686 [place] [id number] 2019-12-13 2019-12-13 Emergency Katie Tran [facility] 1.2.840.114 [id number] 10:58:13 11:51:00 Shania Valdes 350.1.13.10 [place] 4.2.7.2.686 [place] [id number] 2019-12-13 2019-12-13 Orders Doctor VALLES 1.2.840.114 [id number] 00:00:00 00:00:00 Only Unassigned, KILLIAN 350.1.13.10 [place] [address]686 [id number] [id number] 2019-12-09 2019-12-09 Emergency Sameer [facility] 1.2.840.114 [id number] 17:21:03 21:13:00 Marlon Palomino [place] 350.1.13.[address]2.686 [place] [id number] [id number] 2019-12-09 2019-12-09 Orders Doctor REENA 1.2.840.114 [id number] 00:00:00 00:00:00 Only Unassigned, KILLIAN 350.1.13.10 [place] [address]686 [id number] [id number] 2019-07-05 2019-07-08 Hospital Sophie VALLES 1.2.840.114 [id number] 23:58:00 14:34:00 Encounter Isela PEDROZAY 350.1.13.[address]686 [id number] 2019-07-05 2019-07-05 Nurse Luda Ordonez 1.2.840.114 [id number] 00:00:00 00:00:00 Triage KILLIAN [address].13.[address] [id number] 2019-06-29 2019-06-29 [facility] [id number] 12:49:05 13:31:19 Alexa R PRODUCT MARKETING PROGRAMS MANAGER 350.1.13.[address] [facility] 4.2.7.2.686 MATERNAL [id number] & CHILD [address] [place] [address] 2019-05-30 2019-05-30 Patient Doctor REENA 1.2.840.114 [id number] 00:00:00 00:00:00 Secure Msg Unassigned, KILLIAN 350.1.13.10 [place] [address]686 [id number] [id number] Results This patient has no known results.
--- OUTSIDE RECORDS SUMMARY | 2020-10-19 21:51 | XMS REPORT | Summary of Care ---
:2000 Author Organization [facility] - Health Address [address] [place] [address] Care Team Providers Name Role Phone Pcp, Does Not Have A Primary Care Provider Encounter Details Date Type Department Care Team Description 09/25/2020 Orders Only [facility] Doctor Unassigned, No 301 [facility] [place] [address] [address] [place] [address] Allergies No Known Allergiesdocumented as of this encounter (statuses as of 09/25/2020) Medications Medication Sig Dispensed Refills Start Date [...] as of this encounter (statuses as of 09/25/2020) Active Problems No known active problemsdocumented as of this encounter (statuses as of 09/25/2020) Resolved Problems Problem Noted Date Resolved Date care and examination of lactating mother 07/28/2008/18/2019 (spontaneous vaginal delivery) 07/08/201908/18 Single live 07/08/2019 08/18/2019 Rubella non-immune status, antepartum 07/08/2019 38 weeks gestation of 07/06/2019 08/18/20 19 Indication for care or intervention in labor or delivery-IOL 07/06/2019 08/18/2019 for decreased FM Decreased movement 07/06/2019 08/18/2019 [place] Hick's contraction 06/22/2019 07/06/2019 uterine contractions 06/11/2019 [...] as of this encounter (statuses as of 09/25/2020) Immunizations Name Administration Dates Next Due HPV9 [...] of 2 - Risk Bexsero 2-dose series) Depression Screening 2010 HPV VACCINES (2 - 3-dose 09/15/2019 08/18/2019 series) INFLUENZA VACCINE (#1) 2020 08/18/2019, 11/26/2018, 11/26/2018 CHLAMYDIA SCREENING 08/18/2020 08/18/2019, 06/22/2019, 06/11/2019, Additional history exists PAP SMEAR 08/18/2022 08/18/2019 DTaP,Tdap,and Td Vaccines [...] Associated Diagnosis Comme nts CONSENT/REFUSAL FOR Routine 09/25/2020 6:19 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
--- OUTSIDE RECORDS SUMMARY | 2020-10-19 21:51 | XMS REPORT | Summary of Care ---
:2000 Author Organization [facility] Address [address] [place] [id number] Care Team Providers Name Role Phone Pcp, Does Not Have A Primary Care Provider Reason for Referral Radiology Services (STAT) Status Reason Specialty Diagnoses / Referred By Referred To Procedures Contact Contact New Request Diagnostic Diagnoses Lower abdominal pain Nettie Martin Radiology Procedures US OVARY TORSION R, EMNP [address] [address] Reason for Visit Reason Comments Abdominal Pain Auth/Cert Status Reason Specialty Diagnoses / Referred By Referred To Procedures Contact Contact Emergency Medicine Ad[facility] Em ergency Dept [address] [id number] Fax: Encounter Details Date Type Department Care Team Description 09/25/2020 Emergency ADC-Emergency Nettie Martin R, Cervicitis (Primary Dx); Department EMNP Lower abdominal pain [address] [facility] [address] [place] [address] [id number] [place], [place] [id number] Allergies No Known Allergiesdocumented as of this [...] been in contact with No / Unsure 09/25/2020 6:29 PM RAILCAR SWITCHMAN someone who was confirmed or suspected to have Coronavirus / COVID-19? documented as of this encounter Last Filed Vital Signs Vital Sign Reading Time Taken Comments Blood Pressure 110/71 09/25/2020 8:25 PM RAILCAR SWITCHMAN Pulse 106 09/25/2020 8:25 PM RAILCAR SWITCHMAN Temperature 37.5 C (99.5 F) 09/25/2020 6:30 PM RAILCAR SWITCHMAN Respiratory Rate 18 09/25/2020 8:25 PM RAILCAR SWITCHMAN Oxygen Saturation 100% 09/25/2020 8:25 PM RAILCAR SWITCHMAN Inhaled Oxygen Concentration - - Weight 56.2 kg (124 lb) 09/25/2020 6:30 PM RAILCAR SWITCHMAN Height 149.9 cm (4' 11") 09/25/2020 6:30 PM RAILCAR SWITCHMAN Body Mass Index 25.04 09/25/2020 6:30 PM RAILCAR SWITCHMAN documented in this encounter Discharge Instructions Nettie Pearson EMNP - 09/25/2020NO LIFE-THREATENING FINDINGS ON TODAY'S EXAM. SPECIAL INSTRUCTIONS: 1. Your culture will be back in 24-72 hours, may subscribe to my chart to get results. Regardless, you have been treated if you are positive. 2. May take 2 tylenol every 4 hours for pain 3. May take motrin 600mg every 6 hours with food for pain 4. See attached information FOLLOW-UP RECOMMENDATIONS: RECOMMEND FOLLOW-UP WITH A PRIMARY CARE PROVIDER OR SPECIALIST IN 2-5 DAYS, ESPECIALLY IF NO IMPROVEMENT IN SYMPTOMS. TO FOLLOW-UP WITHIN THE [facility], TRY THESE OPTIONS (CLINIC APPOINTMENTS AVAILABLE ON [id number] BASIS): 1. SCHEDULE AN APPOINTMENT ONLINE AT WWW[facility] 2. OR CALL THE [facility] AT OR 3. OR CALL YOUR [facility] PHYSICIAN'S OFFICE DIRECTLY IF YOU ARE ALREADY AN ESTABLISHED [facility] PATIENT. OR, YOU MAY FOLLOW-UP WITH A PROVIDER OF YOUR CHOICE, SUCH : 1. A PHYSICIAN OF YOUR CHOICE 2. [facility], . LOCATIONS IN [facility] 3. [facility], [address] [place] [address]; [phone] RETURN TO ER FOR WORSENING OF SYMPTOMS. AttachmentsThe following attachments cannot be sent through Care Everywhere. Abdominal Pain, Adult (Thai)Pelvic Pain, Unknown Cause (Thai)Cervicitis (STD), Treated (Thai)documented in this encounter ED Notes Alona Sun RN - 09/25/2020 6:29 PM CSTLower abdominal discomfort x4 days. documented in this encounter Miscellaneous Notes ED Nurse Note - Fariba Barker RN - 09/25/2020 8:50 PM CSTDischarge teaching given. Patient verbalized understanding. Vitals stable. No acute distress noted. Patient ambulatory. documented in this encounter Plan of Treatment Name Type Priority Associated Diagnoses Date/Ti me GC & CHLAMYDIA AMPLIFIED LAB STAT Lower abdominal pain 09/25/2020 6:45 PM RAILCAR SWITCHMAN ASSAY US OVARY TORSION IMAGING STAT Lower abdominal pain 05/2020 7:47 PM RAILCAR SWITCHMAN Name Type Priority Associated Diagnoses Order S chedule GC & CHLAMYDIA AMPLIFIED LAB Routine Lower abdominal pain ONCE for 1 Occurrences ASSAY starting 2019 until 09/25/2020 Health Maintenance Due Date Last Done Comments [...] Name Priority Date/Time Associated Diagnosis Comme nts US OVARY TORSION STAT 09/25/2020 7:47 PM RAILCAR SWITCHMAN Lower abdomin al pain Procedure Note - [facility], Radia nt Results Inft User - 09/25/2020 8:00 PM RAILCAR SWITCHMAN EXAM: PELVIC ULTRASOUND, TRANSABDOMINAL AND TRANSVAGINAL HISTORY: left lower abd pain COMPARISON: Pelvic ultrasoun d dated 12/09/2019. FINDINGS: Last menstrual period: 09/10. OB history: A1. UTERUS: The uterus measures 6.3 x 3.6 x 4.1 cm. The endometrium is homogeneous and measures 0.2 cm in thickness. OVARIES: The right ovary kirsten sures 2.8 x 2.4 x 2.5 cm (8.6 mL). The left ovary measures 2.4 x 1.8 x 2 .3 cm (5.1 mL). Bilateral symmetric arterial and venous waveforms are pre sent. No adnexal masses. No free fluid. IMPRESSION Normal pelvic ultrasound. Sp ecifically, no sonographic findings to suggest ovarian torsion. Preliminary Report Dictated by Resident: Tl Wilson POCT TEST MARILYN 09/25/2020 6:40 PM Lower abdomina l Results for this RAILCAR SWITCHMAN pain procedure are i n the results section. CBC WITH DIFF STAT 09/25/2020 6:40 PM Lower abdominal Resu lts for this RAILCAR SWITCHMAN pain procedure are i n the results section. URINALYSIS STAT 09/25/2020 6:39 PM Lower abdominal Resul ts for this RAILCAR SWITCHMAN pain procedure are i n the results section. COMP. METABOLIC PANEL STAT 09/25/2020 6:39 PM Lower abdomi nal Results for this ([id number]) RAILCAR SWITCHMAN pain procedure are i n the results section. LIPASE STAT 09/25/2020 6:39 PM Lower abdominal Resul ts for this RAILCAR SWITCHMAN pain procedure are i n the results section. documented in this encounter Results POCT TEST (09/25/2020 6:40 PM RAILCAR SWITCHMAN) Pathologist [facility] POCT PREG negative On board controls acceptable present with C Line POCT PREG LOT # [id number] POCT PREG TEST DATE 06-18-2022 Specimen Urine - URINE, CLEAN CATCH CBC WITH DIFF (09/25/2020 6:40 PM RAILCAR SWITCHMAN) [facility] WBC 6.93 4.30 - 11.10 [facility] 10*3/L [facility] RBC 4.66 3.93 - 5.25 [facility] 10*6/L [facility] HGB 12.7 11.6 - 15.0 [facility] g/dL [facility] HCT 38.6 35.7 - 45.2 % [facility] MCV 82.8 80.6 - 95.5 fL [facility] MCH 27.3 25.9 - 32.8 pg [facility] MCHC 32.9 31.6 - 35.1 [facility] g/dL [facility] RDW-SD 38.0 (L) 39.0 - 49.9 fL [facility] RDW-CV 12.5 12.0 - 15.5 % [facility] PLT 279 166 - 358 [facility] 10*3/L HOSPITAL [facility] MPV 11.3 9.5 - 12.9 fL [facility] NRBC/100 WBC 0.0 0.0 - 10.0 /100 [facility] WBCs [facility] NRBC x10^3 <0.01 10*3/L [facility] GRAN MAT (NEUT) % 50.7 % [facility] IMM GRAN % 0.10 % [facility] LYMPH % 41.8 % [facility] MONO % 5.8 % [facility] EOS % 1.2 % [facility] BASO % 0.4 % [facility] GRAN MAT x10^3(ANC) 3.51 1.88 - 7.09 [facility] 10*3/uL [facility] IMM GRAN x10^3 <0.03 0.00 - 0.06 [facility] 10*3/uL HOSPITAL LAB[facility] LYMPH x10^3 2.90 1.32 - 3.29 [facility] 10*3/uL HOSPITAL LAB[facility] MONO x10^3 0.40 0.33 - 0.92 [facility] 10*3/uL HOSPITAL LAB[facility] EOS x10^3 0.08 0.03 - 0.39 [facility] 10*3/uL HOSPITAL LAB[facility] BASO x10^3 0.03 0.01 - 0.07 [facility] 10*3/uL [facility] Specimen Blood - VENOUS Performing Organization Address City/[facility] Cent[facility]ode Phone Number [facility] CLIA: [id number] [place], [place] [address] LABORATORY [address] LIPASE (09/25/2020 6:39 PM RAILCAR SWITCHMAN) Pathologist Sig nature LIPASE 177 0 - 220 U/L [facility] Specimen Blood - VENOUS Performing Organization Address City/[facility]/Zipcode Phone Number [facility] CLIA: [id number] [place], [place] [id number] LABORATORY [address] URINALYSIS (09/25/2020 6:39 PM RAILCAR SWITCHMAN) Pathologist Sig nature APPEARANCE Hazy (A) Clear [facility] COLOR Yellow Yellow [facility] PH 6.0 4.8 - 8.0 [facility] SP GRAVITY 1.030 1.003 - 1.030 [facility] GLU U QUAL Normal Normal [facility] BLOOD Negative Negative [facility] KETONES Negative Negative [facility] PROTEIN Negative Negative [facility] UROBILIN 2.0 mg/dL (A) Normal [facility] BILIRUBIN Negative Negative [facility] NITRITE Negative Negative [facility] LEUK NIURKA Negative Negative [facility] RBC/HPF 1 0 - 3 HPF [facility] WBC/HPF <1 0 - 5 HPF [facility] BACTERIA Negative Negative [facility] MUCOUS Marked (A) Negative LPF [facility] SQ EPITH 8 HPF [facility] Specimen Urine - URINE, CLEAN CATCH Performing Organization Address City/State/Zipcode Phone Number [facility] CLIA: [id number] [place] [address] COMP. METABOLIC PANEL ([id number]) (09/25/2020 6:39 PM RAILCAR SWITCHMAN) Pathologist Sig nature NA 139 135 - 145 [facility] mmol/L [facility] K 3.3 (L) 3.5 - 5.0 [facility] mmol/L [facility] CL 104 98 - 108 mmol/L [facility] CO2 TOTAL 27 23 - 31 mmol/L [facility] AGAP 8 2 - 16 [facility] BUN 13 7 - 23 mg/dL [facility] GLUCOSE 100 70 - 110 mg/dL [facility] CREATININE 0.56 0.50 - 1.04 [facility] mg/dL [facility] TOTAL BILI 0.3 0.1 - 1.1 mg/dL [facility] CALCIUM 9.4 8.6 - 10.6 [facility] mg/dL HOSPITAL LABORATORY T PROTEIN 7.3 6.3 - 8.2 g/dL [facility] ALBUMIN 4.5 3.5 - 5.0 g/dL [facility] ALK PHOS 72 34 - 122 U/L [facility] ALTv 15 5 - 35 U/L [facility] AST(SGOT) 18 13 - 40 U/L [facility] eGFR Calculation 135.4 mL/min/1.73m2 [facility] (Non[facility] LABORATORY [place]) eGFR Calculation 164.1 mL/min/1.73m2 [facility] () [facility] Specimen Blood - VENOUS Narrative Performed At Association of Glomerular Filtration Rate (GFR) [facility] and Staging of Kidney Disease* + + +- + | GFR (mL/min/1.73 m2) | With Kidney Damage | Without Kidney Damage + + +- + | >90 | Stage one | Normal + + +- + | 60-89 | Stage two | Decreased GFR + + +- + | 30-59 | Stage three | Stage three + + +- + | 15-29 | Stage four | Stage four + + +- + | <15 (or dialysis) | Stage five | Stage five + + +- + *Each stage assumes the associated GFR level has been in effect for at least three months. Stages 1 to 5, with or without kidney disease, indicate chronic kidney disease. Notes: Determination of stages one and two (with eGFR >59mL/min/1.73 m2) requires estimation of kidney damage for at least three months as defined by structural or functional abnormalities of the kidney, manifested by either: Pathological abnormalities or Markers of kidney damage (including abnormalities in the composition of the blood or urine or abnormalities in imaging tests). Performing Organization Address City/State/Zipcode Phone Number [facility] CLIA: [id number] [place] [address] documented in this encounter Visit Diagnoses Diagnosis Cervicitis - Primary Cervicitis and endocervicitis Lower abdominal pain Abdominal pain, other specified site documented in this encounter Administered Medications Medication Order MAR Action Action Date Dose Rate Site cefTRIAXone (ROCEPHIN) Given 09/25/2020 8:32 PM RAILCAR SWITCHMAN 250 mg Right Arm injection 250 mg 250 mg, Intramuscular, Q24H, First dose on Thu09/25/20 at 2130, Until Discontinued, MARILYN, Reason for Anti-Infective: Documented Infection, Documented Infection Site: Pelvic, Duration of Therapy: Other (see Comments) fluconazole (DIFLUCAN) tablet 150 mg Given 09/25/2020 8:32 PM RAILCAR SWITCHMAN 150 mg 150 mg, Oral, DAILY, First dose on Thu09/26/20 at 0900, Until Discontinued, MARILYN, Reason for Anti-Infective: Documented Infection, Documented Infection Site: Pelvic, Duration of Therapy: Other (see Comments) Medication Order MAR Action Action Date Dose Rate Site azithromycin (ZITHROMAX) tablet Given 09/25/2020 8:31 PM RAILCAR SWITCHMAN 1, 000 mg 1,000 mg 1,000 mg, Oral, ONCE, 1 dose, 09/25/20 at 2130, MARILYN, Reason for Anti-Infective: Documented Infection, Documented Infection Site: Pelvic, Duration of Therapy: Other (see Comments) FENTanyl PF (SUBLIMAZE (PF)) injection 50 Given 09/25/2020 6:44 PM RAILCAR SWITCHMAN 50 mcg mcg 50 mcg, Slow IV Push, ONCE, 1 dose, 09/25/20 at 1945, Routine NaCl 0.9% (NS) bolus infusion New Bag 09/25/2020 6:42 PM RAILCAR SWITCHMAN 1,000 mL 999 mL/hr 1,000 mL at 999 mL/hr, 1,000 mL, IV Infusion, ONCE, 1 dose, 09/25/20 at 1845, MARILYN ondansetron (ZOFRAN (PF)) injection 4 mg Given 09/25/2020 6:45 PM RAILCAR SWITCHMAN 4 mg 4 mg, Slow IV Push, ONCE, 1 dose, 09/25/20 at 1945, MARILYN documented in this encounter Advance Directives Name Relationship Healthcare Agent Communication Relationship Alysa Castro Mother Health Care Agent
[2020-10-19] MEDS ORDERED: ONDANSETRON 4 MG (ODT) TAB ONE (22:07)
[2020-10-19 23:24] LABS: SARS-COV-2 RT PCR NEGATIVE (NEGATIVE)
[2020-10-19] MEDS ORDERED: PEN G BENZ LA 1.2MU/2ML SYRINGE IM ONE (23:29)
--- NOTE | 2020-10-19 23:49 | ER ---
Nurse's Notes [facility] Name: Niru Castro Age: 20 yrs Sex: Female : 2000 Arrival Date: 10/19/2020 Time: 21:42 Bed 6 Private MD: Diagnosis: Streptococcal pharyngitis Presentation: 10/19 21:51 Chief complaint: Patient states: Chills, fever, BURRIS, sore throat x 1 week; Sister and lp1 mother recently tested COVID Positive. Coronavirus screen: Client denies travel out of the [place] in the last 14 days. chills, fever, headache, sore throat. Ebola Screen: No symptoms or risks identified at this time. Initial Sepsis Screen: Does the patient meet any 2 criteria? No. Patient's initial sepsis screen is negative. Does the patient have a suspected source of infection? No. Patient's initial sepsis screen is negative. Risk Assessment: Do you want to hurt yourself or someone else? Patient reports no desire to harm self or others. Onset of symptoms was October 19, 2020. 21:51 Method Of Arrival: Ambulatory lp1 21:51 Acuity: JOLLY 4 lp1 DRUG COORDINATOR: 21:53 LMP N/A - Depo-provera lp1 Historical: - Allergies: 21:53 No Known Allergies; lp1 - Home Meds: 21:53 None [Active]; lp1 - PMHx: 21:53 HYPERGLYCEMIA; lp1 - PSHx: 21:53 Appendectomy; Hernia repair; lp1 - Immunization history:: Adult Immunizations up to date. Screenin:53 Abuse screen: Denies threats or abuse. Denies injuries from another. Nutritional lp1 screening: No deficits noted. Tuberculosis screening: No symptoms or risk factors identified. Fall Risk None identified. Assessment: 21:50 Reassessment: Notified of patient nausea; Verbal order from MING Olivia for Zofran 4mg lp1 PO now. 22:03 General: Appears in no apparent distress. comfortable, Behavior is calm, cooperative, rr5 appropriate for age, Reports chills for fever for feeling ill for fatigue for. Pain: Complains of pain in head Pain currently is 5 out of 10 on a pain scale. Quality of pain is described as aching, Pain began gradually, Is intermittent. Neuro: Level of Consciousness is awake, alert, obeys commands, Oriented to person, place, time, situation, Reports headache. Cardiovascular: Capillary refill < 3 seconds Patient's skin is warm and dry. Respiratory: Airway is patent Respiratory effort is even, unlabored, Respiratory pattern is regular, symmetrical, GI: Abdomen is round non-distended, Reports nausea. : No signs and/or symptoms were reported regarding the genitourinary system. EENT: Throat Reports pain when swallowing. Derm: Skin is intact, is healthy with good turgor, Skin temperature is warm. Musculoskeletal: Circulation, motion, and sensation intact. Capillary refill < 3 seconds. 23:04 Reassessment: Patient appears in no apparent distress at this time. Patient and/or mg2 family updated on plan of care and expected duration. Pain level reassessed. Patient is alert, oriented x 3, equal unlabored respirations, skin warm/dry/pink. 23:50 Reassessment: Patient states feeling better. mg2 Vital Signs: 21:51 BP 105 / 76; Pulse 117; Resp 16; Temp 99.1(O); Pulse Ox 100% on R/A; Weight 54.43 kg lp1 (R); Height 4 ft. 11 in. (149.86 cm); 23:05 BP 132 / 78; Pulse 102; Resp 19; Temp 98.8; Pulse Ox 99% ; rr5 23:52 BP 106 / 58; Pulse 101; Resp 18; Temp 98.5; Pulse Ox 100% on R/A; mg2 21:51 Body Mass Index 24.24 (54.43 kg, 149.86 cm) lp1 ED Course: 21:42 Patient arrived in ED. ds1 21:42 Ne Caballero FNP-C is [facility]. kb 21:42 Jose Waters MD is Attending Physician. kb 21:44 Diaz Baird RN is Primary Nurse. rr5 21:52 Triage completed. lp1 21:52 Arm band placed on. lp1 22:04 Patient has correct armband on for positive identification. Bed in low position. Call rr5 light in reach. 22:04 COVID swab sent to lab. Flu and/or RSV swab sent to lab. Strep swab sent to lab. rr5 23:04 No provider procedures requiring assistance completed. Patient did not have IV access mg2 during this emergency room visit. Administered Medications: 21:51 CANCELLED (Duplicate Order): Zofran (Ondansetron) 4 mg PO once kb 21:52 Drug: Zofran (Ondansetron) 4 mg Route: PO; mg2 23:04 Follow up: Response: No adverse reaction mg2 23:17 Drug: Bicillin L-A 1.2 million units {Note: given by kelsie HENSON.} Route: IM; Site: rr5 right gluteus; 23:49 Follow up: Response: No adverse reaction mg2 Outcome: 23:48 Discharge ordered by . kb 23:53 Discharged to home ambulatory. mg2 23:53 Condition: stable 23:53 Discharge instructions given to patient, Instructed on discharge instructions, follow up and referral plans. Demonstrated understanding of instructions, follow-up care. 23:53 Patient left the ED. mg2 Signatures: Ne Caballero, LEGAL ARBITRATOR-C LEGAL ARBITRATOR-Ckb [place] ds1 Lorena Calero RN RN lp1 Aashish Dinh RN RN mg2 Diaz Baird RN RN rr5
--- NOTE | 2020-10-19 23:49 | EDPHYS ---
Physician Documentation [facility] Name: Niru Castro Age: 20 yrs Sex: Female : 2000 Arrival Date: 10/19/2020 Time: 21:42 Bed 6 Private MD: ED Physician Jose Waters HPI: 10/19 21:52 This 20 yrs old Female presents to ER via Ambulatory with complaints of Sore kb Throat, Chills. 21:52 The patient presents with sore throat. The patient describes throat pain as constant. kb Onset: The symptoms/episode began/occurred 1 week(s) ago. Severity of symptoms: At their worst the symptoms were moderate, in the emergency department the symptoms are unchanged. Modifying factors: The symptoms are alleviated by nothing, the symptoms are aggravated by swallowing, Patient's oral intake status: good The patient has had contact with sick. Associated signs and symptoms: Pertinent positives: chills, fever, flu-like symptoms, malaise, Sore throat. The patient has not experienced similar symptoms in the past. The patient has not recently seen a physician. Pt states she believes she has covid. States her mother and sister both tested positive. States she has had sore throat, fever, chills, malaise, bodyaches, and headaches for a week. HEEL LAYER: 21:53 LMP N/A - Depo-provera lp1 Historical: - Allergies: 21:53 No Known Allergies; lp1 - Home Meds: 21:53 None [Active]; lp1 - PMHx: 21:53 HYPERGLYCEMIA; lp1 - PSHx: 21:53 Appendectomy; Hernia repair; lp1 - Immunization history:: Adult Immunizations up to date. ROS: 21:51 Cardiovascular: Negative for chest pain, palpitations, and edema, Respiratory: Negative kb for shortness of breath, cough, wheezing, and pleuritic chest pain, Abdomen/GI: Negative for abdominal pain, nausea, vomiting, diarrhea, and constipation, Back: Negative for injury and pain, MS/Extremity: Negative for injury and deformity, Skin: Negative for injury, rash, and discoloration. 21:51 Constitutional: Positive for body aches, chills, fatigue, fever, malaise. 21:51 ENT: Positive for sore throat. 21:51 Neuro: Positive for headache. Exam: 21:51 Constitutional: This is a well developed, well nourished patient who is awake, alert, kb and in no acute distress. Head/Face: Normocephalic, atraumatic. ENT: Nares patent. No nasal discharge, no septal abnormalities noted. Tympanic membranes are normal and external auditory canals are clear. Oropharynx with no redness, swelling, or masses, exudates, or evidence of obstruction, uvula midline. Mucous membranes moist. Neck: Trachea midline, no thyromegaly or masses palpated, and no cervical lymphadenopathy. Supple, full range of motion without nuchal rigidity, or vertebral point tenderness. No Meningismus. Chest/axilla: Normal chest wall appearance and motion. Nontender with no deformity. No lesions are appreciated. Cardiovascular: Regular rate and rhythm with a normal S1 and S2. No gallops, murmurs, or rubs. Normal PMI, no JVD. No pulse deficits. Respiratory: Lungs have equal breath sounds bilaterally, clear to auscultation and percussion. No rales, rhonchi or wheezes noted. No increased work of breathing, no retractions or nasal flaring. Abdomen/GI: Soft, non-tender, with normal bowel sounds. No distension or tympany. No guarding or rebound. No evidence of tenderness throughout. Skin: Warm, dry with normal turgor. Normal color with no rashes, no lesions, and no evidence of cellulitis. MS/ Extremity: Pulses equal, no cyanosis. Neurovascular intact. Full, normal range of motion. Neuro: Awake and alert, GCS 15, oriented to person, place, time, and situation. Cranial nerves II-XII grossly intact. Motor strength 5/5 in all extremities. Sensory grossly intact. Cerebellar exam normal. Normal gait. Vital Signs: 21:51 BP 105 / 76; Pulse 117; Resp 16; Temp 99.1(O); Pulse Ox 100% on R/A; Weight 54.43 kg lp1 (R); Height 4 ft. 11 in. (149.86 cm); 23:05 BP 132 / 78; Pulse 102; Resp 19; Temp 98.8; Pulse Ox 99% ; rr5 23:52 BP 106 / 58; Pulse 101; Resp 18; Temp 98.5; Pulse Ox 100% on R/A; mg2 21:51 Body Mass Index 24.24 (54.43 kg, 149.86 cm) lp1 MDM: 21:43 Patient medically screened. kb 21:51 Data reviewed: vital signs, nurses notes. Data interpreted: Pulse oximetry: on room air kb is 100 %. Interpretation: normal. 23:47 Counseling: I had a detailed discussion with the patient and/or guardian regarding: the kb historical points, exam findings, and any diagnostic results supporting the discharge/admit diagnosis, lab results, the need for outpatient follow up, a family practitioner, to return to the emergency department if symptoms worsen or persist or if there are any questions or concerns that arise at home. 10/19 21:47 Order name: Strep; Complete Time: 22:46 kb 10/19 23:24 Order name: COVID-19/FLU A+B; Complete Time: 23:47 EDMS Administered Medications: 21:51 CANCELLED (Duplicate Order): Zofran (Ondansetron) 4 mg PO once kb 21:52 Drug: Zofran (Ondansetron) 4 mg Route: PO; mg2 23:04 Follow up: Response: No adverse reaction mg2 23:17 Drug: Bicillin L-A 1.2 million units {Note: given by kelsie HENSON.} Route: IM; Site: rr5 right gluteus; 23:49 Follow up: Response: No adverse reaction mg2 Disposition: 10/20 04:05 Co-signature as Attending Physician, Jose Waters MD. [email or web address] Disposition: 10/19/20 23:48 Discharged to Home. Impression: Streptococcal pharyngitis. - Condition is Stable. - Discharge Instructions: Strep Throat, [id number]. - Medication Reconciliation Form, Thank You Letter, Antibiotic Education, Prescription Opioid Use form. - Follow up: Emergency Department; When: As needed; Reason: Worsening of condition. Follow up: Private Physician; When: 2 - 3 days; Reason: Recheck today's complaints, Continuance of care, Re-evaluation by your physician. Signatures: Dispatcher [employer] EDNe Helm, Jose Galvez MD MD pkl Lorena Calero RN RN lp1 Aashish Dinh RN RN mg2 Diaz Baird RN RN rr5 Corrections: (The following items were deleted from the chart) 10/19 21:51 21:51 Zofran (Ondansetron) 4 mg PO once ordered. kb kb 22:25 21:48 Influenza Screen (A \T\ B)+BA.LAB.BRZ ordered. EDMS EDMS 22:25 21:48 CORONAVIRUS+MR.LAB.BRZ ordered. EDMS EDMS 23:53 23:48 10/19/2020 23:48 Discharged to Home. Impression: Streptococcal pharyngitis. mg2 Condition is Stable. Forms are Medication Reconciliation Form, Thank You Letter, Antibiotic Education, Prescription Opioid Use. Follow up: Emergency Department; When: As needed; Reason: Worsening of condition. Follow up: Private Physician; When: 2 - 3 days; Reason: Recheck today's complaints, Continuance of care, Re-evaluation by your physician. kb
== END 2020-10-19 23:53 | disposition home or self-care (01) ==
LOC: ER 21:40
DX: J02.0 Streptococcal pharyngitis (principal); Z20.828 Contact with and (suspected) exposure to other viral communicable diseases
CPT/HCPCS: 0240U; 87081; 96372; 99283; J0561

== ENCOUNTER 2022-07-14 12:27 | Emergency (ER) | payer SELFPAY ==
--- OUTSIDE RECORDS SUMMARY | 2022-07-14 12:33 | XMS REPORT | Continuity of Care Document ---
:2000 Author Organization [facility] t Address [address] [place] [address] [address]. [address]. [address] [place] [address] Care Team Providers Name Role Phone Pcp, Patient Does Not Have A Primary Care Physician [phone] [email or web address] Attending Clinician Unavailable Keri Bernard Attending Clinician [phone] DORIS DEAN Attending Clinician Unavailable Doris Dean DO Attending Clinician NERISSA MONROY Attending Clinician Unavailable Nerissa Russell Attending Clinician MAMI SHABAZZ Attending Clinician Unavailable Mami Shabazz NP Attending Clinician Elena Noel MD Attending Clinician ELENA NOEL Attending Clinician Unavailable Peter Dominguez DO Attending Clinician SRINATH KAMARA Attending Clinician Unavailable OTF SANCHEZ Attending Clinician Unavailable Nettie Guevara Attending Clinician Doctor Unassigned, [place] Attending Clinician Unavailable CATHLEEN MCKEON Attending Clinician Unavailable Dedrick Beaulieu MD Attending Clinician Chelsea PIERRE Katie Shania Attending Clinician Pawan Simon Attending Clinician PAWAN MOLINA Attending Clinician Unavailable NORA LUIS Attending Clinician Unavailable SRIKANTH QUINTANILLA Attending Clinician Unavailable Grace Hammer Attending Clinician Luda Ordonez RN Attending Clinician Unavailable Srikanth Sousa Attending Clinician [email or web address]_Boccalandro_C Admitting Clinician Unavailable NERISSA MONROY Admitting Clinician Unavailable PAWAN MOLINA Admitting Clinician Unavailable Grace Hammer Admitting Clinician Payers Payer Name Policy Type Policy Number Effective Date Expiration Date S miracle MEDICAID PENDING PENDING 2021 00:00:00 [place] [id number] 2021 W[place]EN 00:00:00 [place] [facility] [id number] 2019 2019 HEALTH 00:00:00 00:00:00 [place] OF [place] [id number] 2018 2019 00:00:00 00:00:00 Problems Condition Condition Condition Status Onset Resolution Last Treating Co mments Source Name Details Category Date Date Treatment Clinician Date Calculus Calculus Disease Active Unive rs of common of common 9-04 ity of bile duct bile [place] 00 Medical obstructio obstructio Br anch n n Thyrotoxic Thyrotoxic Disease Active U nivers osis due osis due 2-11 ity of to acute to acute 00:00: [place] thyroiditi thyroiditi 00 Me dical s s Branch Disease Resolve 2018-102019-08-18 2019-08-18 Univers care and care and d 0-10 00:00:00 15:31:31 [place] examin[place]in[place] of [place] of 00 Medical lactating lactating Bran ch mother mother Disease Resolve 2019-08-18 2019-08-18 Univers (spontaneo (spontaneo d 9-20 00:00:00 15:31:35 [place] vaginal [place] vaginal [place] delivery[place] 00 [facility] Single Single Disease Resolve 2019-08-18 2019-08-18 Univers live live d 9-20 00:00:00 15:31:34 ity of 00:00: [place] 00 [facility] Rubella Rubella Disease Resolve 2019-08-18 2019-08-18 Univers non-immune non-immune d 9 00:00:00 15:31:33 ity of status, status, 00:00: [place] antepartum antepartum 00 Me dical Branch 38 weeks 38 weeks Disease Resolve 2019-08-18 2019-08-18 Univers gestation gestation d 9-18 00:00:00 15:31:19 ity of of of 00:00: [place] 00 [facility] Indication Indication Disease Resolve 2019-08-18 2019-08-18 Univers for care for care d 9 00:00:00 15:31:28 it y of or or 00:00: [place] interventi interventi 00 Me dical on in on in Branch labor or labor or delivery-I delivery-I OL for OL for decreased decreased FM FM Decreased Decreased Disease Resolve 2019-08-18 2019-08-18 Univers d 9-18 00:00:00 15:31:23 ity of movement movement 00:00: [place] 00 [facility] High-risk High-risk Disease Resolve 2019-08-18 2019-08-18 Univers d 4-10 00:00:00 15:31:24 ity of in third in third 00:00: [place] trimester trimester 00 [facility] History of History of Disease Resolve 2019-08-18 2019-08-18 Univers miscarriag miscarriag d 3- 00:00:00 15:31:27 ity of e, e, 00:00: [place] currently currently 00 [facility] Branch Primigravi Primigravi Disease Resolve 2019-08-18 2019-08-18 Univers da in da in d 3- 00:00:00 15:31:32 ity of third third 00:00: [place] trimester trimester 00 [facility] Chlamydia Chlamydia Disease Resolve 2019-08-18 2019-08-18 [place] [facility] trachomati trachomati d 2-15 00:00:00 15:31:21 ity of s s 00:00: [place] infection infection 00 [facility] of lower of lower Branch genitourin genitourin sarbjit sites sarbjit sites Breathitt Breathitt Disease Resolve 2019-2019-07-06 2019-07-06 [place] [facility] Hick's Hick's d 9-04 00:00:00 06:05:26 ity of contractio contractio [place] [facility] Disease Resolve 2018-2019-07-06 2019-07-06 Univers uterine uterine d 8-24 00:00:00 05:14:28 [place]y of contractio contractio [place] ns 00 [facility] 34 weeks 34 weeks Disease Resolve 2018-2019-07-06 2019-07-06 Univers gestation gestation d 8-02 00:00:00 05:07:55 ity of of of 00:00: [place] 00 [facility] BV BV Disease Resolve 2019-07-06 2019-07-06 Univers (bacterial (bacterial d 7-22 00:00:00 05:08:00 ity of vaginosis) vaginosis[place] [facility] 29 weeks 29 weeks Disease Resolve 2018-2019-07-06 2019-07-06 Univers gestation gestation d 7-22 00:00:00 05:07:50 ity of of of 00:00: [place] 00 [facility] 27 weeks 27 weeks Disease Resolve 2019-2019-07-06 2019-07-06 Univers gestation gestation d 7-05 00:00:00 05:07:46 ity of of of 00:00: [place] 00 [facility] 24 weeks 24 weeks Disease Resolve 2019-2019-07-06 2019-07-06 Univers gestation gestation d 6-15 00:00:00 05:07:41 ity of of of 00:00: [place] 00 [facility] [place] Disease Resolve 2019-2019-07-06 2019-07-06 Univers ligament ligament d 6-15 00:00:00 06:05:23 it y of pain pain 00:00: [place] 00 Medical Branch Urine Urine Disease Resolve 2019-07-06 2019-07-06 Univers ketones ketones d 2- 00:00:00 05:09:28 ity of 00:00: [place] 00 Medical Branch Nausea and Nausea and Disease Resolve 2019-04-12 2019-04-12 Univers vomiting vomiting d 11-26 00:00:00 13:52:40 it y of during during 00:00: [place] 00 Medi yuliana prior to prior to Branch 22 weeks 22 weeks gestation gestation Diabetes Diabetes Disease Resolve 2018-11-29 2018-11-29 Univers d 10-19 00:00:00 22:03:13 ity of 00:00: [place] 00 [facility] Allergies, Adverse Reactions, Alerts Allergy Allergy Status Severity Reaction(s) Onset Inactive Treating Comm ents Source Name Type Date Date Clinician NO KNOWN Drug Active Univers ALLERGIE Class ity of S [facility] Social History Social Habit Start Date Stop Date Quantity Comments Source Exposure to Not sure [facility] SARS-CoV-2 [facility] (event) Branch Alcohol intake 2021-11-02 2021-11-02 Current drinker Unive rsity of 00:00:00 00:00:00 of alcohol [place] Medical (finding) Branch History SDOH 2020-11-30 2020-11-30 3 University o f Alcohol Frequency 00:00:00 00:00:00 [place] M edical Branch History SDOH 2020-11-30 2020-11-30 99 University o f Alcohol Std 00:00:00 00:00:00 [place] Medical Drinks Branch History SDOH 2020-11-30 2020-11-30 99 University o f Alcohol Binge 00:00:00 00:00:00 [place] Medic al Branch Alcohol Comment 2019-08-18 2019-08-18 socially Universit y of 00:00:00 00:00:00 [facility] Tobacco use and 2018-11-26 2018-11-26 Never used Universit y of exposure 00:00:00 00:00:00 [facility] Sex [birth year] At [birth year] Universit y of 00:00:00 00:00:00 [facility] Smoking Status Start Date Stop Date Source Never smoker [facility] Branch Medications Ordered Filled Start Stop Current Ordering Indication Dosage Frequency Signature Comments Components Source Medication Medication Date Date Medication? Clinician (SIG) Name Name ondansetron 2021- No 4mg 4 mg, Slow Univers (ZOFRAN 3-02 18-05 IV Push, ity of (PF)) 06:00: 05:12 ONCE, 1 [place] injection 4 00 :00 dose, On Medi yuliana mg 12/21/21 Branch at 0000, MARILYN NaCl 0.9% 2021- No 1000mL at 999 Uni vers (NS) bolus 12-21-05 mL/hr, ity of infusion 06:00: 07:20 1,000 mL, Facundo as 1,000 mL 00 :00 IV Medical Infusion, Branch ONCE, 1 dose, On 12/21/21 at 0000, MARILYN ondansetron 2021- No 4mg 4 mg, Univ ers (ZOFRAN-ODT 3-05 03-05 Oral, ity of ) 06:00: 04:56 ONCE, 1 [place] disintegrat 00 :00 dose, On Medi yuliana ing tablet 12/21/21 Bra nch 4 mg at 0000, Routine ondansetron Yes [id number] 4mg Take 1 Univers 4 mg 3-05 tablet by ity of disintegrat 00:00: mouth [place] ing tablet 00 every 8 Medica l (eight) Branch hours as needed for Nausea and Vomiting (N/V). ketorolac 2021- No 30mg 30 mg, Unive rs (TORADOL) 11-03 Slow IV ity of injection 08:00: 07:15 Push, [place] 30 mg 00 :00 ONCE, 1 Medical dose, On Branch 11/03/21 at 0200, MARILYN aspirin 2021-2021- No 325mg 325 mg, Unive rs tablet 325 11-03 Oral, ity of mg 07:00: 06:02 ONCE, 1 [place] 00 :00 dose, On Medical [place] Branch 11/03/21 at 0100, MARILYN ondansetron 2020- Yes [id number] 4mg Take 1 Univers (ZOFRAN 6-01 tablet by ity of ODT) 4 mg 00:00: mouth [place] disintegrat 00 every 8 Medic al ing tablet (eight) Branch hours as needed for Nausea and Vomiting (N/V). ondansetron 2021-0 Yes [id number] 4mg Take 1 Univers (ZOFRAN 6-01 tablet by ity of ODT) 4 mg 00:00: mouth [place] disintegrat 00 every 8 Medic al ing tablet (eight) Branch hours as needed for Nausea and Vomiting (N/V). ondansetron 2020-0 Yes [id number] 4mg Take 1 Univers (ZOFRAN 6-01 tablet by ity of ODT) 4 mg 00:00: mouth [place] disintegrat 00 every 8 Medic al ing tablet (eight) Branch hours as needed for Nausea and Vomiting (N/V). ondansetron 2020-0 2022- No [id number] 4mg Take 1 Univers (ZOFRAN 6-01 03-05 tablet by ity of ODT) 4 mg 00:00: 00:00 mouth [place] disintegrat 00 :00 every 8 Medic al ing tablet (eight) Branch hours as needed for Nausea and Vomiting (N/V). methIMAzole 2020-0 Yes [id number] 20mg Take 2 Univers 10 mg 2-15 tablets by ity of tablet 00:00: mouth [place] 00 daily. Medical Branch propranoloL 2020-0 Yes [id number] 60mg Take 1 U nivers 60 mg 2-15 tablet by ity of tablet 00:00: mouth 2 00 (two) Medical times Branch daily. methIMAzole 2020-0 Yes [id number] 20mg Take 2 Univers 10 mg 2-15 tablets by ity of tablet 00:00: mouth [place] 00 daily. Medical Branch propranoloL 2020-0 Yes [id number] 60mg Take 1 U nivers 60 mg 2-15 tablet by ity of tablet 00:00: mouth 2 00 (two) Medical times Branch daily. methIMAzole 2020-0 Yes [id number] 20mg Take 2 Univers 10 mg 2-15 tablets by ity of tablet 00:00: mouth [place] 00 daily. Medical Branch propranoloL 2020-0 Yes [id number] 60mg Take 1 U nivers 60 mg 2-15 tablet by ity of tablet 00:00: mouth 2 [place] 00 (two) Medical times Branch daily. methIMAzole 2020-0 Yes [id number] 20mg Take 2 Univers 10 mg 2-15 tablets by ity of tablet 00:00: mouth [place] 00 daily. Medical Branch propranoloL 2020-0 Yes [id number] 60mg Take 1 U nivers 60 mg 2-15 tablet by ity of tablet 00:00: mouth 2 (two) Medical times Branch daily. methIMAzole 2020-0 Yes Thyrotoxico 20mg Take 2 Univers 10 mg 2-15 sis due to tablets by it y of tablet 00:00: acute mouth 00 thyroiditis daily. Medica l Branch propranoloL 2020-0 Yes Tachycardia 60mg Take 1 Univers 60 mg 2-15 tablet by ity of tablet 00:00: mouth 2 (two) Medical times Branch daily. propranoloL 2020-0 Yes [id number] 60mg Take 1 Univers 60 mg 2-14 tablet by ity of tablet 00:00: mouth (two) Medical times Branch daily. ondansetron 2020-0 Yes [id number] 4mg Take 1 Univers (ZOFRAN 2-14 tablet by ity of ODT) 4 mg 00:00: mouth [place] disintegrat 00 every 6 Medic al ing tablet (six) Branch hours as needed for Nausea and Vomiting (N/V). propranoloL 2020-0 Yes [id number] 60mg Take 1 Univers 60 mg 2-14 tablet by ity of tablet 00:00: mouth (two) Medical times Branch daily. ondansetron 2020-0 Yes [id number] 4mg Take 1 Univers (ZOFRAN 2-14 tablet by ity of ODT) 4 mg 00:00: mouth [place] disintegrat 00 every 6 Medic al ing tablet (six) Branch hours as needed for Nausea and Vomiting (N/V). propranoloL 2020-0 Yes [id number] 60mg Take 1 Univers 60 mg 2-14 tablet by ity of tablet 00:00: mouth (two) Medical times Branch daily. ondansetron 2020-0 Yes [id number] 4mg Take 1 Univers (ZOFRAN 2-14 tablet by ity of ODT) 4 mg 00:00: mouth [place] disintegrat 00 every 6 Medic al ing tablet (six) Branch hours as needed for Nausea and Vomiting (N/V). propranoloL 2020-0 Yes [id number] 60mg Take 1 Univers 60 mg 2-14 tablet by ity of tablet 00:00: mouth 2 (two) Medical times Branch daily. propranoloL 2020-0 Yes Thyrotoxico 60mg Take 1 Univers 60 mg 2-14 sis due to tablet by ity of tablet 00:00: acute mouth 2 [place] 00 thyroiditis (two) Medical times Branch daily. ondansetron Yes Thyrotoxico 4mg Take 1 Univers (ZOFRAN 2-14 sis without tablet by ity of ODT) 4 mg 00:00: thyroid [place] disintegr[place] storm, every 6 Med ical ing tablet unspecified (six) B ranch thyrotoxico hours as sis type needed for Nausea and Vomiting (N/V). ondansetron 2021- No [id number] 4mg Take 1 Univers (ZOFRAN 2-14 03-05 tablet by ity of ODT) 4 mg 00:00: 00:00 mouth [place] disintegrat 00 :00 every 6 Medic al ing tablet (six) Branch hours as needed for Nausea and Vomiting (N/V). Immunizations Ordered Filled Immunization Date Status Comments [facility] e Immunization Name Name Influenza Virus 2019-08-18 Completed Universit y of Vaccine Quad .5 mL 00:00:00 [facility] 6+ MO Branch HPV9 2019-08-18 Completed University of 00:00:00 [facility] Influenza Virus 2019-08-18 Completed Universit y of Vaccine Quad .5 mL 00:00:00 [facility] 6+ MO Branch HPV9 2019-08-18 Completed University of 00:00:00 [facility] Influenza Virus 2019-08-18 Completed Universit y of Vaccine Quad .5 mL 00:00:00 [facility] 6+ MO Branch HPV9 2019-08-18 Completed University of 00:00:00 [facility] Influenza Virus 2019-08-18 Completed Universit y of Vaccine Quad .5 mL 00:00:00 [facility] 6+ MO Branch HPV9 2019-08-18 Completed University of 00:00:00 [facility] Influenza Virus 2019-08-18 Completed Universit y of Vaccine Quad .5 mL 00:00:00 [facility] 6+ MO Branch HPV9 2019-08-18 Completed University of 00:00:00 [facility] TDAP 2019-04-26 Completed University of 00:00:00 [facility] TDAP 2019-04-26 Completed University of 00:00:00 [facility] TDAP 2019-04-26 Completed University of 00:00:00 [facility] TDAP 2019-04-26 Completed University of 00:00:00 [facility] TDAP 2019-04-26 Completed University of 00:00:00 [facility] Influenza Virus 2018-11-26 Completed Universit y of Vaccine Quad .5 mL 00:00:00 [facility] 6+ MO Branch Influenza Virus 2018-11-26 Completed Universit y of Vaccine 00:00:00 [facility] Influenza Virus 2018-11-26 Completed Universit y of Vaccine Quad .5 mL 00:00:00 [facility] IM 6+ MO Branch Influenza Virus 2018-11-26 Completed Universit y of Vaccine 00:00:00 [facility] Influenza Virus 2018-11-26 Completed Universit y of Vaccine Quad .5 mL 00:00:00 [facility] IM 6+ MO Branch Influenza Virus 2018-11-26 Completed Universit y of Vaccine 00:00:00 [facility] Influenza Virus 2018-11-26 Completed Universit y of Vaccine Quad .5 mL 00:00:00 [facility] IM 6+ MO Branch Influenza Virus 2018-11-26 Completed Universit y of Vaccine 00:00:00 [facility] Influenza Virus 2018-11-26 Completed Universit y of Vaccine Quad .5 mL 00:00:00 [facility] 6+ MO Branch Influenza Virus 2018-11-26 Completed Universit y of Vaccine 00:00:00 [facility] Vital Signs Vital Name Observation Time Observation Value Comments Source Systolic blood 2021-12-21 07:00:00 107 mm[Hg] Univer sity of pressure [facility] Diastolic blood 2021-12-21 07:00:00 90 mm[Hg] Unive rsity of pressure [facility] Heart rate 2021-12-21 07:00:00 94 /min [facility] Oxygen saturation in 2021-12-21 07:00:00 100 /min [facility] Arterial blood by [facility] Pulse oximetry [place] Body temperature 2021-12-21 04:45:00 37.17 Sybil [facility] Respiratory rate 2021-12-21 04:45:00 19 /min [facility] Body height 2021-12-21 04:45:00 157.5 cm [facility] Body weight 2021-12-21 04:45:00 67.132 kg [facility] BMI 2021-12-21 04:45:00 27.07 kg/m2 Universi ty of [place] [facility] Systolic blood 2021-11-03 07:31:00 112 mm[Hg] Univer sity of pressure [place] [facility] Diastolic blood 2021-11-03 07:31:00 64 mm[Hg] Unive rsity of pressure [place] [facility] Heart rate 2021-11-03 07:31:00 88 /min Universi ty of [place] [facility] Respiratory rate 2021-11-03 07:31:00 16 /min Univ ersity of [place] [facility] Oxygen saturation in 2021-11-03 07:31:00 100 /min University of Arterial blood by [place] Medi yuliana Pulse oximetry Branch Body temperature 2021-11-03 05:48:00 37.5 Sybil Univ ersity of [place] [facility] Body height 2021-11-03 05:47:00 149.9 cm Universi ty of [place] [facility] Body weight 2021-11-03 05:47:00 63.504 kg Universi ty of [place] [facility] BMI 2021-11-03 05:47:00 28.28 kg/m2 Universi ty of [place] [facility] Systolic blood 2021-08-24 22:49:00 122 mm[Hg] Univer sity of pressure [place] [facility] Diastolic blood 2021-08-24 22:49:00 82 mm[Hg] Unive rsity of pressure [place] [facility] Heart rate 2021-08-24 22:49:00 117 /min Universi ty of [place] [facility] Body temperature 2021-08-24 22:49:00 37.11 Sybil Univ ersity of [place] [facility] Respiratory rate 2021-08-24 22:49:00 16 /min Univ ersity of [place] [facility] Body height 2021-08-24 22:49:00 149.9 cm Universi ty of [place] [facility] Body weight 2021-08-24 22:49:00 56.246 kg Universi ty of [place] [facility] BMI 2021-08-24 22:49:00 25.04 kg/m2 Universi ty of [place] [facility] Oxygen saturation in 2021-08-24 22:49:00 97 /min University of Arterial blood by [place] Medi yuliana Pulse oximetry Branch Systolic blood 2021-08-06 20:35:00 124 mm[Hg] Univer sity of pressure [place] [facility] Diastolic blood 2021-08-06 20:35:00 74 mm[Hg] Unive rsity of pressure [facility] Heart rate 2021-08-06 20:35:00 91 /min Universi ty of [facility] Body temperature 2021-08-06 20:35:[address] [facility] Respiratory rate 2021-08-06 20:35:00 18 /min [facility] Body height 2021-08-06 20:35:00 149.9 cm Universi ty of [facility] Body weight 2021-08-06 20:35:00 56.246 kg Universi ty of [facility] BMI 2021-08-06 20:35:00 25.04 kg/m2 Universi ty [facility] Oxygen saturation in 2021-08-06 20:35:00 99 /min University of Arterial blood by [facility] Pulse oximetry Branch Heart rate 2021-02-22 08:00:00 67 /min Universi ty [facility] Respiratory rate 2021-02-22 07:30:00 20 /min [facility] Oxygen saturation in 2021-02-22 07:30:00 100 /min University of Arterial blood by [facility] Pulse oximetry Branch Systolic blood 2021-02-22 07:00:00 113 mm[Hg] Univer sity of pressure [facility] Diastolic blood 2021-02-22 07:00:00 71 mm[Hg] Unive rsity of [facility] Body temperature 2021-02-22 05:33:[address] [facility] Body weight 2021-02-22 05:33:00 54.432 kg Universi ty of [facility] BMI 2021-02-22 05:33:00 24.24 kg/m2 [facility] Procedures Procedure Date / Time Performing Clinician Source Performed URINALYSIS 2021-12-21 05:56:00 Doris Dean [facility] POCT TEST 2021-12-21 05:54:[address] MAGNESIUM 2021-12-21 05:06:00 Doris Dean [facility] COMP. METABOLIC PANEL 2021-12-21 05:06:00 Doris Dean [facility] ([id number]) Medical Branch CBC WITH DIFF 2021-12-21 05:06:00 Doris Dean [facility] NOTICE OF PRIVACY 2021-12-21 04:36:43 Doctor Unassigned, No [facility] PRACTICES Name Medical Branch CONSENT/REFUSAL FOR 2021-12-21 04:35:34 Doctor Unassigned, No [facility] [place] DIAGNOSIS AND TREATMENT Name Medical Branch XR CHEST 1 VW 2021-11-03 06:22:30 Solis [facility] POCT TEST 2021-11-03 06:19:00 Solis [facility] URINALYSIS 2021-11-03 06:17:00 Solis [facility] D-DIMER 2021-11-03 06:16:00 Solis [facility] TROPONIN I 2021-11-03 06:03:00 Solis [facility] COMP. METABOLIC PANEL 2021-11-03 06:03:00 Nerissa Monroy [facility] ([id number]) Medical Branch CBC WITH DIFF 2021-11-03 06:03:00 Solis [facility] N-TERMINAL PRO-BNP 2021-11-03 06:03:00 Nerissa Monroy [facility] COVID-19 (ID NOW RAPID 2021-11-03 06:02:00 Slois Nerissa [facility] TESTING) Medical Branch CONSENT/REFUSAL FOR 2021-11-03 05:41:29 Doctor Unassigned, No [facility] [place] DIAGNOSIS AND TREATMENT Name Medical Branch CONSENT/REFUSAL FOR 2021-08-24 22:45:48 Doctor Unassigned, No [facility] [place] DIAGNOSIS AND TREATMENT Name Medical Branch XR CHEST 1 VW 2021-02-22 06:15:17 Singer [facility] CBC WITH DIFF 2021-02-22 06:11:00 Singer [facility] FREE T3 2021-02-22 06:11:00 Singer [facility] FREE T4 2021-02-22 06:11:00 Peter Dominguez [place] o [facility] THYROID STIMULATING 2021-02-22 06:11:00 Peter Dominguez [facility] HORMONE [facility] Branch COMP. METABOLIC PANEL 2021-02-22 06:11:00 Peter Dominguez [facility] ([id number]) Medical Branch Plan of Care Planned Activity Planned Date Details Comments Source Future Scheduled 2029-04-26 DTaP,Tdap,and Td Univers ity [facility] Test 00:00:00 Vaccines (2 - Td) Medical Br anch [code = DTaP,Tdap,and Td Vaccines (2 - Td)] Future Scheduled 2022-08-18 Screening for [facility] Test 00:00:00 malignant neoplasm of Medica l Branch cervix (procedure) [code = 686760431] Future Scheduled 2021-09-25 Screening for [facility] Test 00:00:00 Chlamydia trachomatis Medica l Branch (procedure) [code = 127943817] Future Scheduled 2021-06-19 [facility] Test 00:00:00 (Season Ended) [code = Medic al Branch INFLUENZA VACCINE (Season Ended)] Future Scheduled 2019-09-15 HPV VACCINES (2 - Univer [facility] Test 00:00:00 3-dose series) [code = Medic al Branch HPV VACCINES (2 - 3-dose series)] Future Scheduled 2016 Hepatitis C screening [facility] [place] Test 00:00:00 (procedure) [code = Medical Branch [id number]] Future Scheduled 2014 SARS-CoV-2 (COVID-19) [facility] [place] Test 00:00:00 Vaccine (1) [code = Medical Branch SARS-CoV-2 (COVID-19) Vaccine (1)] Future Scheduled 2010 Depression screening [facility] [place] Test 00:00:00 (procedure) [code = Medical Branch [id number]] Future Scheduled 2008 MENINGOCOCCAL B Universi [facility] Test 00:00:00 VACCINES (1 of 2 - Medical B ranch Risk Bexsero 2-dose series) [code = MENINGOCOCCAL B VACCINES (1 of 2 - Risk Bexsero 2-dose series)] Future Scheduled XR CHEST 1 VW [code = [facility] [place] Test 235] Medical Branch Encounters Start End Encounter Admission Attending Care Care Encounter Source Date/Time Date/Time Type Type Clinicians Facility Department ID 2021-08-19 Emergency [facility] [id number] Univers 20:26:01 ity of [facility] 2021-08-18 Emergency [facility] [id number] Univers 22:27:08 ity of [facility] 2021-08-18 Emergency [facility] [id number] Univers 17:40:19 ity of [facility] 2021-08-18 Emergency [facility] [id number] Univers 01:47:18 ity of [facility] 2021-08-17 Emergency [facility] [id number] Univers 23:40:45 ity of [facility] 2021-08-17 Emergency [facility] [id number] Univers 23:13:41 ity of [facility] 2021-08-17 Emergency [facility] [id number] Univers 10:03:18 ity of [facility] 2021-08-16 Emergency [facility] [id number] Univers 23:43:08 ity of [facility] 2021-08-16 Emergency [facility] [id number] Univers 18:44:42 ity of [facility] 2021-08-16 Emergency [facility] [id number] Univers 11:57:07 ity of [facility] 2021-08-15 Emergency [facility] [id number] Univers 10:54:31 ity of [facility] 2022-06-23 2022-06-23 Outpatient GC_TEG_Bocc PRIV PRIV 212 [id number] [facility] 00:00:00 00:00:00 tammyro_C [id number] [facility] 2022-06-12 2022-06-12 Outpatient GC_TEG_Bocc PRIV PRIV 212 [id number] [facility] 00:00:00 00:00:00 alandro_C [id number] [facility] 2022-06-12 2022-06-12 Outpatient Winograd, PRIV PRIV [id number] [id number] 00:00:00 00:00:00 Keri [id number] 2022-06-10 2022-06-10 Outpatient GC_TEG_Bocc PRIV PRIV 212 [id number] [facility] 00:00:00 00:00:00 alandro_C [id number] [facility] 2022-04-20 2022-04-20 Outpatient GC_TEG_Bocc PRIV PRIV 212 [id number] [facility] 01:17:00 01:17:00 alandro_C [id number] [facility] 2022-03-23 2022-03-23 Outpatient GC_TEG_Bocc PRIV PRIV 212 [id number] [facility] 12:58:00 12:58:00 alandro_C [id number] [facility] 2022-02-24 2022-02-24 Outpatient GC_TEG_Bocc PRIV PRIV 212 [id number] [facility] 01:30:00 01:30:00 alandro_C [id number] [facility] 2022-02-10 2022-02-10 Outpatient GC_TEG_Bocc PRIV PRIV 212 [id number] [facility] 11:16:00 11:16:00 alandro_C [id number] [facility] 2021-12-20 2021-12-21 Emergency X DIANNERUST ERT [id number] Univers 22:51:00 01:26:00 DORIS moe [facility] 2021-12-20 2021-12-21 Emergency DianneRUST 1.2.840.114 [id number] Univers 22:51:00 01:26:00 [facility] [id number] [facility] 084 Branch 2021-12-19 2021-12-19 Outpatient GC_TEG_Bocc PRIV PRIV 212 [id number] [facility] 11:30:00 11:30:00 alandro_C [id number] [facility] 2021-12-19 2021-12-19 Outpatient Winograd, PRIV PRIV [id number] [id number] 00:00:00 00:00:00 Keri [id number] 2021-12-18 2021-12-18 Outpatient GC_TEG_Bocc PRIV PRIV 212 [id number] [facility] 12:25:00 12:25:00 alandro_C [id number] [facility] 2021-11-02 2021-11-03 Emergency X SOLIS, [facility] ERT [id number] Univers 23:53:00 02:00:00 NERISSA moe [facility] 2021-11-02 2021-11-03 Emergency Mnoroy, [facility] 1.2.840.114 [id number] Univers 23:53:00 02:00:00 Nerissa PINK 350.1.13.10 i ty [facility] [id number] [address] 2021-10-14 2021-10-14 Outpatient GC_TEG_Bocc PRIV PRIV 212 [id number] [facility] 09:37:00 09:37:00 alandro_C [id number] [facility] 2021-10-14 2021-10-14 Outpatient Winograd, PRIV PRIV [id number] afc-7 00:00:00 00:00:00 Keri [id number] 2021-10-02 2021-10-02 Outpatient GC_TEG_Bocc PRIV PRIV 212 [id number] [facility] 01:03:00 01:03:00 alandro_C [id number] [facility] 2021-08-24 2021-08-24 Emergency X HARIKARUST ERT [id number] Univers 17:53:00 18:39:00 MAMI brien [facility] 2021-08-24 2021-08-24 [facility] 1.2.270.604 [id number] Univers 17:53:00 18:39:00 Mami PINK 350.1.13.10 ity eli [facility] [place] [id number] [address] 2021-08-06 2021-08-06 Office BertRUST 1.2.431.720 [id number] Univers 15:22:10 17:04:27 Visit Elena Pink 350.1.13.10 [place] [id number] Nv dical nal 188 [facility] 2021-08-06 2021-08-06 Outpatient R BERT [facility] [id number] 5Q-20 Univers 15:30:00 15:30:00 ELENA [id number] ity [facility] 2021-08-06 2021-08-06 Outpatient R BERT, [facility] [id number] Univers 15:30:00 15:30:00 [facility]-07-[facility] 2021-07-09 Outpatient R BERT, [facility] [id number] 5Q-20 Univers 15:30:00 15:30:00 ELENA [id number] ity [facility] 2021-07-09 2021-07-09 Outpatient R BERT [facility] [id number] Univers 15:30:00 15:30:00 ELENA [facility] 2021-06-20 2021-06-20 Outpatient R [facility] [id number] -[id number] Univers 17:55:00 17:55:00 [id number] [facility] 2021-06-20 2021-06-20 Outpatient R [facility] [id number] Univers 17:55:00 17:55:00 ity [facility] 2021-02-11 2021-02-11 Outpatient R ASAD [facility] [id number] 35Q-20 Univers 14:30:00 14:30:00 SRINATH [id number] [facility] 2020-12-24 2020-12-24 Outpatient ASAD [facility] [id number] [id number] Univers 09:30:00 09:30:00 SRINATH [id number] [facility] 2020-12-24 2020-12-24 Outpatient R ASAD [facility] [id number] Univers 09:30:00 09:30:00 [facility] 2020-12-10 2020-12-10 Outpatient R LAURA [facility] [id number] Q-20 Univers 08:15:00 08:15:00 OTF [id number] [facility] 2020-12-10 2020-12-10 Outpatient R LAURA [facility] [id number] Univers 08:15:00 08:15:00 OTF [facility] 2020-12-05 2020-12-05 Outpatient R LAURA, [facility] [id number] Q-20 Univers 16:00:00 16:00:00 OTF [id number] [facility] 2020-09-25 2020-09-25 Emergency MartinRUST 1.2.709.356 [id number] 18:31:00 20:56:00 Nettie Pink 350.1.13.10 [place] 4.2.7.2.686 [place] [id number] 2020-09-25 2020-09-25 Orders Doctor VALLES 1.2.840.114 [id number] 00:00:00 00:00:00 Only UnassignedKILLIAN 350.1.13.10 [place] [facility] 4.2.7.2.686 [id number] 009 2020-08-22 2020-08-22 Orders Doctor VALLES 1.2.840.114 [id number] 00:00:00 00:00:00 Only UnassignedKILLIAN 350.1.13.10 [place] [address].2.7.2.686 [id number] 009 2020-08-06 2020-08-06 Emergency [facility] 1.2.840.114 [id number] 12:16:00 14:18:00 Doris Pink 350.1.13.10 [place] 4.2.7.2.686 [place] [id number] 084 2020-07-12 2020-07-12 Outpatient MIKE [facility] [id number] -[id number] Univers 08:30:00 08:30:00 CATHLEEN [id number] [facility] 2020-07-12 2020-07-12 [facility] [id number] Univers 08:30:00 08:30:00 CATHLEEN [facility] 2020-07-10 2020-07-10 Emergency RUST 1.2.645.862 [id number] 09:03:00 10:00:00 Peter Pink 350.1.13.10 [place] 4.2.7.2.686 [place] [id number] 2020-07-10 2020-07-10 Orders Doctor VALLES 1.2.840.114 [id number] 00:00:00 00:00:00 Only Unassigned, KILLIAN 350.1.13.10 [place] [facility] 4.2.7.2.686 [id number] [id number] 2020-05-29 2020-05-29 Emergency Brittnee [facility] 1.2.217.343 [id number] 21:53:00 23:40:00 Dedrick Pink 350.1.13.10 [place] 4.2.7.2.686 [place] [id number] 2019-12-13 2019-12-13 Emergency Katie Tran [facility] 1.2.840.114 [id number] 10:58:13 11:51:00 Shania Pink 350.1.13.10 [place] 4.2.7.2.686 [place] [id number] 084 2019-12-13 2019-12-13 Orders Doctor VALLES 1.2.840.114 [id number] 00:00:00 00:00:00 Only Unassigned, KILLIAN 350.1.13.10 [place] [facility] 4.2.7.2.686 [id number] [id number] 2019-12-09 2019-12-09 Emergency [facility] 1.2.840.114 [id number] 17:21:03 21:13:00 Pawan Pink 350.1.13.10 [place] 4.2.7.2.686 [place] [id number] 084 2019-12-09 2019-12-09 [facility] [id number] Univers 17:21:03 21:13:00 PAWAN [facility] 2019-12-09 2019-12-09 Orders Doctor REENA 1.2.840.114 [id number] 00:00:00 00:00:00 Only UnassignedKILLIAN 350.1.13.10 [place] [address].2.7.2.686 [id number] [id number] 2019-09-20 2019-09-20 Outpatient R MARYAM [facility] [id number] [id number] Univers 00:00:00 00:00:00 EZE [id number] itbrien [facility] 2019-09-08 2019-09-08 Outpatient R MARYAM [facility] [id number] Univers 00:00:00 23:59:00 BARILuli payal eli MELENDEZ [facility] 2019-07-28 2019-07-28 Outpatient R SOC[place]RO [facility] [id number] Univers 10:30:00 11:17:04 SRIKANTH shaunnabrien o f [facility] 2019-07-05 2019-07-08 Hospital Sophie VALLES 1.2.840.114 [id number] 23:58:00 14:34:00 Encounter Haydenevie DAILY 350.1.13.10 [facility] 4.2.7.2.686 [id number] [id number] 2019-07-05 2019-07-05 Nurse Luda Ordonez 1.2.840.114 [id number] 00:00:00 00:00:00 Triage KILLIAN 350.1.13.10 [place] [address].2.7.2.686 [id number] 019 2019-06-29 2019-06-29 Routine SocorroRUST 1.2.840.114 [id number] 12:49:05 13:31:19 Srikanth Mcleod [employer] 350.1.13.10 Visit [facility] 4.2.7.2.686 MATERNAL [id number] & CHILD [address] [place] [address] 2019-05-30 2019-05-30 Patient Doctor REENA 1.2.840.114 [id number] 00:00:00 00:00:00 Secure Msg Unassigned, KILLIAN 350.1.13.10 [place] [facility] 4.2.7.2.686 [id number] 044 Results Test Description Test Time Test Comments Results Result Comments Source PAP TEST, THINPREP, IMAGED 2022-06-25 14:44:39 Test Item Value Reference Range Interpretation Comme nts SOURCE: (test code = 8001) Cervical/Vaginal SLIDES: (test code = 8011) 1 LMP: (test code = 8021) 2020 SPECIMEN ADEQUACY: (test (NOTE) Sa tisfactory for code = 76092) evaluation. En docervical cells/transform ation zone component prese nt. INTERPRETATION: (test code LSIL/EPITH. ABNORMALITY; SEE A = 55313) BELOW - EPITHELIAL CELL ABNORMALITY Low Grade S quamous Intraepithelial Lesion (LSIL) - OTHER COMMENTS: (test code (NOTE) D ue to technical or = 8081) specimen issues , imaging could not beper formed. A cytotechnologis t has manually screen ed this slide. FACILITATOR: (test ABDIAS Ramos(ASCP) code = 8101) PATHOLOGIST INTERPRETATION Tony Quigley M.D. BY: (test code = 8122) LOCATION: (test code = (NOTE) [place] [address]) Clinical Pathol [facility], [address] [facility] [place] [address], Phone: , CLIA: [id number] i nterpreted at [facility] A, [address] [place] [address], Phone: , CLIA: [id number] CPT: (test code = 8140) (NOTE) 8762 4, 08137, 98316 UNLESS OTHERWISE INDIC ATED, COMPUTER AIDED AND CYTOTECHNOLOGIS T SCREENING PERFORMED. The Pap test is a screening domenico t with an inherent, but l ow probability of error. Your patient should be reminded to consult you immediately if she experien herman any suspicious sign s or symptoms, regar dless of her Pap test result . An alternate repor t format containing imag es or consolidated pr ior Pap history is avai tara as applicable. HPV HIGH IF ABNORMAL [id number] 14:44:39 Test Item Value Reference Range Interpretation Comments HPV HIGH IF ABNORMAL THINPREP (test SEE BELOW code = 35219) HPV HIGH RISK WITH GENOTYPE, [id number] 14:40:28 Test Item Value Reference Range Interpretation Comments HPV HIGH RISK INTERP POSITIVE NEGATIVE A (test code = 43299) HPV 16 (test code = NEGATIVE 27288) HPV 18 (test code = NEGATIVE 68097) HPV, HR, OTHER POSITIVE A Testing meth odology is GENOTYPES (test code real-ti me PCR utilizing = 16754) hydrolysis prob es with the Jerman Jayme 4800 system. The domenico t individually de tects genotypes 16 an d 18, as well as the oth er 12 high risk types (31,33,35,39,45 ,51,52,56 ,58,59,66,68). The expected result is negative. A neg ative result does not rule out the presence of HPV not included in the genotype set, a low leve l of infection or sp ecimen sampling error. UNLESS OTHERWISE INDIC ATED, ALL TESTING PERFORM ED [facility]. [address] [place] [address] LABORATORY DIRE CTOR: NAHED MONTES M.D. CLIA NUMBER [id number] [place] [id number] [place]/NG, TMA, [id number] 19:07:10 Test Item Value Reference Range Interpretation Comments GONORRHEA, TMA NEGATIVE NEGATIVE Assay method ology is (test code = nucleic acid am plification 95619) by transcriptio n mediated amplification ( TMA) utilizing the A ptima Combo 2 Assay. CHLAMYDIA, TMA NEGATIVE NEGATIVE Assay method ology is (test code = nucleic acid am plification 36341) by transcriptio n mediated amplification ( TMA) utilizing the A ptima Combo 2 Assay. VAGINAL PATHOGENS DNA [id number] 15:43:09 Test Item Value Reference Range Interpretation Comments JOVANY SPECIES (test POSITIVE NEGATIVE A code = ) G. VAGINALIS (test POSITIVE NEGATIVE A code = ) T. VAGINALIS (test NEGATIVE NEGATIVE UNLESS O THERWISE code = ) INDICATED, ALL TESTING PERFORMED ATC NICAL PATHOLOGY LABOR [facility], [facility]. [address] [place] [address] 7875 4 LABORATORY DIRE CTOR: NAHED MONTES M.D. CLIA NUMBER [id number] CAP ACCREDITATI ON NO. HIV 1/2 4TH GEN, RFLX [id number] 06:55:46 Test Item Value Reference Range Interpretation Comments HIV 1/2 4TH GEN, RFLX CONF (test NON-REACTIVE NON-REACTIVE code = 3514) [id number] 06:51:55 Test Item Value Reference Range Interpretation Comments PROLACTIN (test 17.2 NG/ML 5.0-37.0 NOTE: Metho dology is Jerman code = 2800) Jayme Electrochemilum inescence Immunoassay (EC DEISY). Values obtained with d ifferent assays/manufact urers cannot be used interch angeably. Results should not be used as sole basis to e stablish the presence or abs ence of malignancy. CT/NG, NAAT, [id number] 10:58:33 Test Item Value Reference Range Interpretation Comments GONORRHEA, NAAT NEGATIVE NEGATIVE IMPORTA NT NOTICE: SEE (test code = [place] [address]) [email or web address] Note: Assay methodology is nucleic acid amplification b y instruments sales representative m ediated amplification ( TMA) utilizing the A ptima Combo 2 Assay. CHLAMYDIA, NAAT POSITIVE NEGATIVE A IMPORTA NT NOTICE: SEE (test code = [place] [address]) [email or web address] Note: Assay methodology is nucleic acid amplification b y instruments sales representative m ediated amplification ( TMA) utilizing the A ptima Combo 2 Assay. VAGINAL PATHOGENS DNA [id number] 13:27:01 Test Item Value Reference Range Interpretation Comments JOVANY SPECIES (test POSITIVE NEGATIVE A code = 75310) G. VAGINALIS (test NEGATIVE NEGATIVE code = 35886) T. VAGINALIS (test NEGATIVE NEGATIVE UNLESS O THERWISE code = 78529) INDICATED, ALL TESTING PERFORMED [facility] [employer] [address] [place] [address] 39 4 LABORATORY DIRE CTOR: NAHED MONTES M.D. CLIA NUMBER [id number] CAP ACCREDITATI ON NO. CBC WITH [id number] 06:05:23 Test Item Value Reference Range Interpretation Comments WBC (test code = See_Comment H [Automated 6690-2) message] The system which generated this result transmit nivia reference range : 4.30 - 11.10 10*3/?L. The reference range was not used to interpret this result as normal/abnormal . RBC (test code = See_Comment H [Automated 789-8) message] The system which generated this result transmit nivia reference range : 3.93 - 5.25 10*6/?L. The reference range was not used to interpret this result as normal/abnormal . HGB (test code = 15.6 g/dL 11.6-15.0 H 718-7) HCT (test code = 47.6 % 35.7-45.2 H 4544-3) MCV (test code = 83.4 fL 80.6-95.5 787-2) MCH (test code = 27.3 pg 25.9-32.8 785-6) MCHC (test code = 32.8 g/dL 31.6-35.1 786-4) RDW-SD (test code = 44.6 fL 39.0-49.9 42279-2) RDW-CV (test code = 14.8 % 12.0-15.5 788-0) PLT (test code = See_Comment [Automated 777-3) message] The system which generated this result transmit nivia reference range : 166 - 358 10*3/ ?L. The reference range was not u sed to interpret th is result as normal/abnormal . MPV (test code = 10.8 fL 9.5-12.9 32338-4) NRBC/100 WBC (test See_Comment [Automat ed code = 5125444041) message] The system which generated this result transmit nivia reference range : 0.0 - 10.0 /100 WBCs. The reference range was not used to interpret this result as normal/abnormal . NRBC x10^3 (test code <0.01 See_Comment [Auto mated = 5229472965) message] The system which generated this result transmit nivia reference range : 10*3/?L. The reference range was not used to interpret this result as normal/abnormal . GRAN MAT (NEUT) % 83.7 % (test code = 770-8) IMM GRAN % (test code 0.50 % = 5131298267) LYMPH % (test code = 10.9 % 736-9) MONO % (test code = 4.1 % 5905-5) EOS % (test code = 0.5 % 713-8) BASO % (test code = 0.3 % 706-2) GRAN MAT x10^3(ANC) 15.99 10*3/uL 1.88-7.09 H (test code = 0372988415) IMM GRAN x10^3 (test 0.10 10*3/uL 0.00-0.06 H code = 8701575871) LYMPH x10^3 (test code 2.08 10*3/uL 1.32-3.29 = 731-0) MONO x10^3 (test code 0.78 10*3/uL 0.33-0.92 = 742-7) EOS x10^3 (test code = 0.09 10*3/uL 0.03-0.39 711-2) BASO x10^3 (test code 0.06 10*3/uL 0.01-0.07 = 704-7) BANDS (test code = Increased A 5323140662) Lab Interpretation Abnormal (test code = 09080-7) [id number] 05:54:00 Test Item Value Reference Range Interpretation Comments POCT PREG (test code = 1605) negative Lab Interpretation (test code = Normal 58356-1) [facility] ([id number])2021-12-21 05:45:23 Test Item Value Reference Range Interpretation Comments NA (test code = 139 mmol/L 135-145 4464130450) K (test code = 4.1 mmol/L 3.5-5.0 8535802839) CL (test code = 103 mmol/L 98-108 7624118175) CO2 TOTAL (test code = 22 mmol/L 23-31 L 1980873017) AGAP (test code = 2-16 5624064135) BUN (test code = 18 mg/dL 7-23 2419011603) GLUCOSE (test code = 116 mg/dL 70-110 H 1205866549) CREATININE (test code = 0.79 mg/dL 0.50-1.04 3332991350) TOTAL BILI (test code = 0.5 mg/dL 0.1-1.2 1307116040) CALCIUM (test code = 9.3 mg/dL 8.6-10.6 7109030603) T PROTEIN (test code = 8.3 g/dL 6.3-8.2 H 9634425981) ALBUMIN (test code = 5.3 g/dL 3.5-5.0 H 3162153923) ALK PHOS (test code = 156 U/L 34-122 H 5369887496) ALTv (test code = 27 U/L 5-35 1742-6) AST(SGOT) (test code = 36 U/L 13-40 6986173440) eGFR (test code = mL/min/1.73m2 7639225127) ANIBAL (test code = ANIBAL) Association of Glomerular Filtration Rate (GFR) and Staging of Kidney Disease* + --+ --+ ------+| GFR (mL/min/1.73 m2) ?| With Kidney Damage ?| ?Without Kidney Damage+ --------+ --------+ +| ?>90 ?| ?Stage one ?| ? Normal ?+ ---+ ---+ -------+| ?60-89 ?| ?Stage two ?| ? Decreased GFR ? + --+ --+ ------+| ?30-59 ?| ?Stage three ?| ? Stage three ? + --+ --+ ------+| ?15-29 ?| ?Stage four ? | ? Stage four ?+ ---+ ---+ -------+| ?<15 (or dialysis) ? ?| ?Stage five ? | ? Stage five ?+ ---+ ---+ -------+ *Each stage assumes the associated GFR level has been in effect for at least three months. ?Stages 1 to 5, with or without kidney disease, indicate chronic kidney disease. Notes: Determination of stages one and two (with eGFR >59mL/min/1.73 m2) requires estimation of kidney damage for at least three months as defined by structural or functional abnormalities of the kidney, manifested by either:Pathological abnormalities or Markers of kidney damage (including abnormalities in the composition of the blood or urine or abnormalities in imaging tests). Lab Interpretation Abnormal (test code = 02916-4) [facility] 05[facility]45[facility]23 Test Item Value Reference Range Interpretation Comments MAGNESIUM (test code = 3254147205) 1.9 mg/dL 1.7-2.4 Lab Interpretation (test code = Normal 06632-2) [facility]TR[facility] [id number] 06:47:56 Test Item Value Reference Interpretation Comments Range TROPONIN I (test 0.000 ng/mL See_Comment [Automated code = 0206154440) message] The system which generated this result transmitted reference range : <=0.034. The reference range was not used to interpret this result as normal/abnormal . ANIBAL (test code = Reference (Normal) ANIBAL) Range (defined by the 99th percentile reference limit): <= 0.034 ng/mL Note: Cardiac troponin begins to rise 3-4 hours after the onset of ischemia. Repeat in 4-6 hours if the sample was drawn within 3-4 hours of the onset of the symptom and found normal. Diagnosis of myocardial injury is made with acute changes in cTn concentrations with at least one serial sample above the 99th percentile upper reference limit (URL), taken together with the patient's clinical presentation. Biotin has been reported to cause a negative bias, interpret results relative to patient's use of biotin. Lab Interpretation Normal (test code = 83456-0) [facility] [id number] 06:44:35 Test Item Value Reference Range Interpretation Comments NT-proBNP (test code 102 pg/mL See_Comment [Autom ated = 2805504109) message] The system which generated this result transmitted reference range : <=125. The reference range was not used to interpret this result as normal/abnormal . ANIBAL (test code = ANIBAL) Biotin has been reported to cause a negative bias, interpret results relative to patient's use of biotin. Lab Interpretation Normal (test code = 09227-0) [facility]OL[facility] PAN[facility] (86143)2021-11-03 06:35:53 Test Item Value Reference Range Interpretation Comments NA (test code = 138 mmol/L 135-145 5826518282) K (test code = 3.6 mmol/L 3.5-5.0 7316932293) CL (test code = 107 mmol/L 98-108 6859780580) CO2 TOTAL (test code = 23 mmol/L 23-31 7046383647) AGAP (test code = 2-16 9803929750) BUN (test code = 12 mg/dL 7-23 3206434238) GLUCOSE (test code = 88 mg/dL 70-110 9719785590) CREATININE (test code = 0.50 mg/dL 0.50-1.04 4875314771) TOTAL BILI (test code = 0.3 mg/dL 0.1-1.9 1420368548) CALCIUM (test code = 9.1 mg/dL 8.6-10.6 1949822555) T PROTEIN (test code = 6.6 g/dL 6.3-8.2 7931779639) ALBUMIN (test code = 4.0 g/dL 3.5-5.0 8789456350) ALK PHOS (test code = 146 U/L 34-122 H 2813180465) ALTv (test code = 29 U/L 5-35 1742-6) AST(SGOT) (test code = 26 U/L 13-40 5087222433) eGFR (test code = mL/min/1.73m2 6648430925) ANIBAL (test code = ANIBAL) Association of Glomerular Filtration Rate (GFR) and Staging of Kidney Disease* + --+ --+ ------+| GFR (mL/min/1.73 m2) ?| With Kidney Damage ?| ?Without Kidney Damage+ --------+ --------+ +| ?>90 ?| ?Stage one ?| ? Normal ?+ ---+ ---+ -------+| ?60-89 ?| ?Stage two ?| ? Decreased GFR ? + --+ --+ ------+| ?30-59 ?| ?Stage three ?| ? Stage three ? + --+ --+ ------+| ?15-29 ?| ?Stage four ? | ? Stage four ?+ ---+ ---+ -------+| ?<15 (or dialysis) ? ?| ?Stage five ? | ? Stage five ?+ ---+ ---+ -------+ *Each stage assumes the associated GFR level has been in effect for at least three months. ?Stages 1 to 5, with or without kidney disease, indicate chronic kidney disease. Notes: Determination of stages one and two (with eGFR >59mL/min/1.73 m2) requires estimation of kidney damage for at least three months as defined by structural or functional abnormalities of the kidney, manifested by either:Pathological abnormalities or Markers of kidney damage (including abnormalities in the composition of the blood or urine or abnormalities in imaging tests). Lab Interpretation Abnormal (test code = 30731-8) [id number]52 Test Item Value Reference Interpretation Comments Range D-DIMER (test code = See_Comment H [Autom ated 2484221333) message] The system which generated this result transmitted reference range : <0.41 ?g/mL (FEU). The reference range was not used to interpret this result as normal/abnormal . ANIBAL (test code = This test may be ANIBAL) used in conjunction with a clinical pretest probability (PTP) assessment model to exclude venous thromboembolism (VTE) in patients suspected of deep venous thrombosis (DVT) and pulmonary embolism (PE) A D-Dimer value less than 0.50 ?g/ml (FEU) has a negative predicative value of 96 to 100% (95% CI)and 97 to 100% (95% CI) as an aid in the diagnosis of deep vein thrombosis (DVT) and pulmonary embolism when there is low or moderate pretest probability of PE or DVT. D-Dimer values are expressed in initial fibrinogen equivalent units (FEU)" The assay results should be used with other information, including the clinical context, in forming a diagnosis. Lab Interpretation Abnormal (test code = 64900-1) [facility] WITH [id number] 06:20:53 Test Item Value Reference Range Interpretation Comments WBC (test code = See_Comment H [Automated 6790-2) message] The sy stem which generated this result transmitted reference range : 4.30 - 11.10 10*3/?L. The reference range was not used to interpret this result as normal/abnormal . RBC (test code = See_Comment [Automated 209-8) message] The sy stem which generated this result transmitted reference range : 3.93 - 5.25 10*6/?L. The reference range was not used to interpret this result as normal/abnormal . HGB (test code = 13.0 g/dL 11.6-15.0 718-7) HCT (test code = 39.5 % 35.7-45.2 4544-3) MCV (test code = 80.4 fL 80.6-95.5 L 787-2) MCH (test code = 26.5 pg 25.9-32.8 785-6) MCHC (test code = 32.9 g/dL 31.6-35.1 786-4) RDW-SD (test code = 37.9 fL 39.0-49.9 L 07845-6) RDW-CV (test code = 13.0 % 12.0-15.5 788-0) PLT (test code = See_Comment [Automated 777-3) message] The sy stem which generated this result transmitted reference range : 166 - 358 10*3/ ?L. The reference r jozef was not used to interpret this result as normal/abnormal . MPV (test code = 10.6 fL 9.5-12.9 65256-1) NRBC/100 WBC (test See_Comment [Automat ed code = 5419510891) message] The system which generated this result transmitted reference range : 0.0 - 10.0 /100 WBCs. The refer ence range was not u sed to interpret th is result as normal/abnormal . NRBC x10^3 (test code <0.01 See_Comment [Auto mated = 5660393132) message] The s ystem which generated this result transmitted reference range : 10*3/?L. The reference range was not used to interpret this result as normal/abnormal . GRAN MAT (NEUT) % 61.2 % (test code = 770-8) IMM GRAN % (test code 0.30 % = 1949157303) LYMPH % (test code = 31.0 % 736-9) MONO % (test code = 5.4 % 5905-5) EOS % (test code = 1.7 % 713-8) BASO % (test code = 0.4 % 706-2) GRAN MAT x10^3(ANC) 6.99 10*3/uL 1.88-7.09 (test code = 5824146296) IMM GRAN x10^3 (test 0.03 10*3/uL 0.00-0.06 code = 6076481934) LYMPH x10^3 (test code 3.54 10*3/uL 1.32-3.29 H = 731-0) MONO x10^3 (test code 0.62 10*3/uL 0.33-0.92 = 742-7) EOS x10^3 (test code = 0.19 10*3/uL 0.03-0.39 711-2) BASO x10^3 (test code 0.04 10*3/uL 0.01-0.07 = 704-7) Lab Interpretation Abnormal (test code = 32417-2) [id number] Test Item Value Reference Range Interpretation Comments POCT PREG (test code = 1605) negative On board controls acceptable with present C Line (test code = 3574) POCT PREG LOT # (test code = 3575) [id number] POCT PREG TEST DATE (test 2022-12-16 code = 3576) Lab Interpretation (test code = Normal 43393-9) [facility] [id number] 07:39:38 Test Item Value Reference Range Interpretation Comments TSH (test code = <0.02 See_Comment L [Automated message] [id number]) The system [employer] generated this result transmitted ref erence range: 0.45 - 4 .70 mIU/L. The refe rence range was not u sed to interpret this result as normal/abnor mal. Lab Interpretation (test Abnormal code = 49264-6) [facility] [id number] 07:26:19 Test Item Value Reference Range Interpretation Comments FREE T4 (test code = 0.86 See_Comment [Autom ated message] [id number]) The system [employer] generated this result transmitted ref erence range: 0.78 - 2 .20 ng/dL:. The ref erence range was not u sed to interpret this result as normal/abnor mal. Lab Interpretation (test Normal code = 12857-1) [facility] [id number] 07:25:38 Test Item Value Reference Range Interpretation Comments FREE T3 (test code = 0677818697) 2.66 pg/mL 2.77-5.27 L Lab Interpretation (test code = Abnormal 70949-2) [facility] (01856)2021-02-22 07:09:55 Test Item Value Reference Range Interpretation Comments NA (test code = 137 mmol/L 135-145 4659885962) K (test code = 3.3 mmol/L 3.5-5.0 L 3229500272) CL (test code = 110 mmol/L 98-108 H 7295018478) CO2 TOTAL (test code = 21 mmol/L 23-31 L 2207630509) AGAP (test code = 6 2-16 3292722255) BUN (test code = 7 mg/dL 7-23 8454157376) GLUCOSE (test code = 78 mg/dL 70-110 0228306856) CREATININE (test code = 0.55 mg/dL 0.50-1.04 5019546239) TOTAL BILI (test code = 0.3 mg/dL 0.1-1.6 9203121237) CALCIUM (test code = 8.3 mg/dL 8.6-10.6 L 7527762805) T PROTEIN (test code = 5.8 g/dL 6.3-8.2 L 1441772635) ALBUMIN (test code = 3.4 g/dL 3.5-5.0 L 7320065137) ALK PHOS (test code = 110 U/L 34-122 6335407318) ALTv (test code = 12 U/L 5-35 1742-6) AST(SGOT) (test code = 15 U/L 13-40 0993348563) eGFR (test code = 138.2 mL/min/1.73m2 0478060224) ANIBAL (test code = ANIBAL) Association of Glomerular Filtration Rate (GFR) and Staging of Kidney Disease* + --+ --+ ------+| GFR (mL/min/1.73 m2) | With Kidney Damage | Without Kidney Damage+ --------+ --------+ +| >90 | Stage one | Normal + --+ --+ ------+| 60-89 | Stage two | Decreased GFR + --+ --+ ------+| 30-59 | Stage three | Stage three + --+ --+ ------+| 15-29 | Stage four | Stage four + --+ --+ ------+| <15 (or dialysis) | Stage five | Stage five + --+ --+ ------+ *Each stage assumes the associated GFR level has been in effect for at least three months. Stages 1 to 5, with or without kidney disease, indicate chronic kidney disease. Notes: Determination of stages one and two (with eGFR >59mL/min/1.73 m2) requires estimation of kidney damage for at least three months as defined by structural or functional abnormalities of the kidney, manifested by either:Pathological abnormalities or Markers of kidney damage (including abnormalities in the composition of the blood or urine or abnormalities in imaging tests). Lab Interpretation Abnormal (test code = 56402-8) [facility] WITH [id number] 06:35:25 Test Item Value Reference Range Interpretation Comments WBC (test code = 10.55 See_Comment [Automated 9990-2) message] The sy stem which generated this result transmitted reference range : 4.30 - 11.10 10*3/?L. The reference range was not used to interpret this result as normal/abnormal . RBC (test code = 4.66 See_Comment [Automated 479-8) message] The sy stem which generated this result transmitted reference range : 3.93 - 5.25 10*6/?L. The reference range was not used to interpret this result as normal/abnormal . HGB (test code = 12.4 g/dL 11.6-15.0 718-7) HCT (test code = 38.2 % 35.7-45.2 4544-3) MCV (test code = 82.0 fL 80.6-95.5 787-2) MCH (test code = 26.6 pg 25.9-32.8 785-6) MCHC (test code = 32.5 g/dL 31.6-35.1 786-4) RDW-SD (test code = 42.0 fL 39.0-49.9 84725-6) RDW-CV (test code = 14.2 % 12.0-15.5 788-0) PLT (test code = 326 See_Comment [Automated 777-3) message] The sy stem which generated this result transmitted reference range : 166 - 358 10*3/ ?L. The reference r jozef was not used to interpret this result as normal/abnormal . MPV (test code = 11.2 fL 9.5-12.9 84127-2) NRBC/100 WBC (test 0.0 See_Comment [Automat ed code = 0720340783) message] The system which generated this result transmitted reference range : 0.0 - 10.0 /100 WBCs. The refer ence range was not u sed to interpret th is result as normal/abnormal . NRBC x10^3 (test code <0.01 See_Comment [Auto mated = 1649924762) message] The s ystem which generated this result transmitted reference range : 10*3/?L. The reference range was not used to interpret this result as normal/abnormal . GRAN MAT (NEUT) % 55.5 % (test code = 770-8) IMM GRAN % (test code 0.30 % = 2744815364) LYMPH % (test code = 37.4 % 736-9) MONO % (test code = 4.4 % 5905-5) EOS % (test code = 1.9 % 713-8) BASO % (test code = 0.5 % 706-2) GRAN MAT x10^3(ANC) 5.86 10*3/uL 1.88-7.09 (test code = 6445908013) IMM GRAN x10^3 (test 0.03 10*3/uL 0.00-0.06 code = 4888058425) LYMPH x10^3 (test code 3.95 10*3/uL 1.32-3.29 H = 731-0) MONO x10^3 (test code 0.46 10*3/uL 0.33-0.92 = 742-7) EOS x10^3 (test code = 0.20 10*3/uL 0.03-0.39 711-2) BASO x10^3 (test code 0.05 10*3/uL 0.01-0.07 = 704-7) Lab Interpretation Abnormal (test code = 94961-2) [facility]
--- NOTE | 2022-07-14 13:22 | ER ---
Nurse's Notes [facility] Name: Niru Castro Age: 22 yrs Sex: Female : 2000 Arrival Date: 07/14/2022 Time: 12:31 Bed Waiting Private MD: Diagnosis: Assessment: 07/14 12:45 Reassessment: Called from lobby, pt went to car, will triage once she returns. [facility] ED Course: 12:31 Patient arrived in ED. rg4 12:44 [facility]ard F[facility] 7 12:44 Wali Neves DO is Attending Physician. 7 12:58 Patient's name was called from ER lobby. No response. ph 13:18 Sandy Henderson FNP-C is PHCP. snw 13:18 Wali Neves DO is Attending Physician. snw 13:21 Patient's name was called from ER lobby. No response. Unable to locate patient. Will ph disposition as left without being seen by a provider. Administered Medications: No medications were administered Outcome: 13:22 Patient left the ED. ph Signatures: Sandy Henderson FNP-C FNP-Paula Guzman RN RN ph Garcia, Rubi 4 Reji Murillo RN RN [facility] Mayra Beard FNP FNP [facility]
== END 2022-07-14 13:22 | disposition left against medical advice (07) ==
LOC: ER 12:27
DX: Z02.9 Encounter for administrative examinations, unspecified (principal)

== ENCOUNTER → 2023-11-16 | Emergency (ER) | payer OTHER, SELFPAY ==
[~2023-11-16] MED LIST: ASPIRIN 81 MG CHEWABLE TABLET ONE; DIAZEPAM 5 MG TABLET ONE; NA CHLORIDE 0.9% 1,000 ML ONE; ONDANSETRON 4 MG/2 ML VIAL ONE
--- OUTSIDE RECORDS SUMMARY | 2023-11-16 19:58 | XMS REPORT | Continuity of Care Document ---
Author Name Unknown Address [address] [facility] [address] [place] [address] [facility] thconnect Address [address] [facility] [place] [address] Care Team Providers Care Tool Setter Apprentice Name Role Phone Autumn Cruz Primary Care Physician [email or web address] Attending Clinician Unavail able LYDIA TYLER Attending Clinician Unavailable Lorena Akers Attending Clinician [phone] Unknown, Attending Attending Clinician Unavailab LORENA Hammond Attending Clinician Unavailable JACKI MONTEIRO Attending Clinician Unavailabl Jacki Zacarias Attending Clinician [phone] PETER MINOR Attending Clinician Unavailable Peter Minor DO Attending Clinician [phone] Doctor Unassigned, [place] Attending Clinician KARISSA Vergara Attending Clinician Unavailable Karissa Fox MD Attending Clinician [phone] DORIS DEAN Attending Clinician Unavailab Doris Poon DO Attending Clinician [phone] MAMI SHABAZZ Attending Clinician Unavailable Mami Shabazz NP Attending Clinician [phone] JO KENT Attending Clinician Unavailabl PAWAN Fisher Attending Clinician Unavaila vee LAI, Pawan Palomino Attending Clinician [phone] JESUSITA BEAULIEU Attending Clinician Unavailable Jesusita Beaulieu MD Attending Clinician [phone] Keri Bernard Attending Clinician [phone] NERISSA ELY Attending Clinician Unavailable Solis FEATHER DRYING MACHINE OPERATOR, Nerissa Attending Clinician [phone] Elena Noel MD Attending Clinician [phone] ELENA NOEL Attending Clinician Unavailable Tasneem Herman RN Attending Clinician [phone] Hunter Martinez MD Attending Clinician [phone] Cinthya Strauss MD Attending Clinician [phone] Tate Zamorano MD Attending Clinician [phone] Jodi Guevara Attending Clinician + [phone] Kyle Pascual DO Attending Clinician [phone] SRINATH KAMARA Attending Clinician Unavailable Sarah Guajardo S Attending Clinician [phone] OTF SANCHEZ Attending Clinician Unavai Katie Washburn Attending Clinician [phone] Baljai Rosario MD Attending Clinician [phone] JODI SALGADO Attending Clinician Unavailable CATHLEEN MCKEON Attending Clinician Unavailable NORA LUIS Attending Clinician Unav ailable SRIKANTH QUINTANILLA Attending Clinician UnavailGrace Boone Attending Clinician [phone] Luda Ordonez RN Attending Clinician Unavailable Srikanth Sousa Attending Clinician + [phone] Tasneem George RN Attending Clinician UnavailJeremy Garcia MD Attending Clinician + [phone] Shlomo Heredia MD Attending Clinician [phone] Cal HALL Rosalio Phan Attending Clinician [phone] GC_TEG_Boccalandro_C Admitting Clinician Unavail able LYDIA TYLER Admitting Clinician Unavailable PETER MINOR Admitting Clinician Unavailable KARISSA FOX Admitting Clinician Unavailable MAMI SHABAZZ Admitting Clinician Unavailable PAWAN ESTRELLA Admitting Clinician UnavailNERISSA rDiscoll Admitting Clinician Unavailable Rica HALL, Cinthya Admitting Clinician [phone] Abraham HALL, Balaji Admitting Clinician [phone] JODI SALGADO Admitting Clinician Unavailable Grace Hammer Admitting Clinician [phone] Rome HALL, Jeremy Admitting Clinician + [phone] Giovanna HALL, Shlomo Yates Admitting Clinician [phone] Rosalio Mccall MD Admitting Clinician [phone] Payers Payer Name Policy Type Policy Number Effective Date Expirati on Date Source MEDICAID PENDING PENDING 2021 00:00:00 [employer]TRUST - OPEN ACCESS [id number] [employer] [id number] 2023 00:00:00 [place] [id number] 2021 00:00:00 [employer] [place]ON [id number] 2022 00:00:00 2022 00:00:00 MEDICA[place] [id number] 2018 00:00:00 2019 00:00:00 Problems Condition Name Condition Details Condition Category Status Onset Date Resolution Date Last Treatment Date Treating Clinician Comments Source Calculus of common bile duct with obstructio n Calculus of common bile duct with obstructio n Disease Active 9 00:00: 00 [facility] Graves' disease Graves' Disease Problem Active 3 00:00: 00 [facility] 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 Sexual orientation [facility] Alcohol intake 2023-10-18 00:00:00 2023-10-18 00:00:00 Current drinker of alcohol (finding) [facility] Tobacco use and exposure 2023-07-21 00:00:00 2023-07-21 00:00:00 Smokeless tobacco non-user [facility] Exposure to SARS-CoV-2 (event) 2022-10-22 00:00:00 2022-11-01 16:02:00 Not sure [facility] History of Social function 2021-07-09 00:00:00 2021-07-09 00:00:00 [facility] History SDOH Alcohol Frequency 2020-11-30 00:00:00 2020-11-30 00:00:00 3 [facility] History SDOH Alcohol Std Drinks 2020-11-30 00:00:00 2020-11-30 00:00:00 99 [facility] History SDOH Alcohol Binge 2020-11-30 00:00:00 2020-11-30 00:00:00 99 [facility] Alcohol Comment 2019-08-18 00:00:00 2019-08-18 00:00:00 socially [facility] Sex Assigned At 2000 00:00:00 2000 00:00:00 [facility] Smoking Status Start Date Stop Date Source Never smoked tobacco [facility] Medications Ordered Medication Name Filled Medication Name Start Date Stop Date Current Medication? Ordering Clinician Indication Dosage Frequency Signature (SIG) Comments Components Source ketorolac (TORADOL) injection 30 mg 2022-10 17:30: 00 10-18 16:52 :00 No 30mg 30 mg, Slow IV Push, ONCE, 1 dose, On 10/18/23 at 1130, [facility] famotidine (PEPCID (PF)) injection 20 mg 2022-10 17:30: 00 10-18 16:53 :00 No 20mg 20 mg, Slow IV Push, ONCE, 1 dose, [facility]10/18/23 [facility] 1130[facility] ([facility]FRAN (PF[facility] 4 mg 2022-10 17:30: 00 10-18 16:52 :00 No 4mg 4 mg, Slow IV Push, ONCE, 1 dose, On Thu10/18/23 at 1130, [facility] NaCl 0.9% (NS) bolus infusion 1,000 mL 2022-10 17:30: 00 10-18 18:18 :00 No 1000mL at 999 mL/hr, 1,000 mL, IV Infusion, ONCE, 1 dose, On Thu10/18/23 at 1130, [facility] ibuprofen 600 mg tablet 2022-10 00:00: 00 Yes [id number] 600mg Take 1 tablet by mouth every 6 (six) hours as needed for Pain (scale 4-6) or Temp > 38.5 C. [facility] albuterol 90 mcg/actuati on inhaler 2022-10 00:00: 00 Yes [id number] 2{puff} Inhale 2 Puffs every 4 (four) hours as needed for Wheezing or Shortness of Breath. [facility] methylPREDN ISolone 4 mg tablets 2022-10 00:00: 00 Yes [id number] Take by mouth SEE-INSTRU CTIONS. follow package directions [facility] amoxicillin 500 mg tablet 2022-10 00:00: 00 10-06 05:59 :00 Yes [id number] 1000mg Take 2 tablets by mouth in the morning for 10 days. [facility] albuterol 90 mcg/actuati on inhaler 2022-10 0-03 00:00: 00 08-01 04:59 :00 No [id number] 2{puff} Inhale 2 Puffs every 6 (six) hours as needed for Wheezing for up to 10 days. [facility] albuterol 90 mcg/actuati on inhaler 2022-10 0-03 00:00: 00 08-01 04:59 :00 No [id number] 2{puff} Inhale 2 Puffs every 6 (six) hours as needed for Wheezing for up to 10 days. [facility] predniSONE 20 mg tablet 2022-10 0-03 00:00: 00 07-27 04:59 :00 No [id number] 40mg Take 2 tablets by mouth in the morning for 5 days. [facility] predniSONE 20 mg tablet 2022-10 0- 00:00: 00 07-27 04:59 :00 No [id number] 40mg Take 2 tablets by mouth in the morning for 5 days. [facility] ondansetron (ZOFRAN-ODT ) disintegrat ing tablet 8 mg 07-05 22:15: 00 07-05 21:24 :00 No [id number] 8mg [facility] ondansetron (ZOFRAN-ODT ) disintegrat ing tablet 8 mg 07-05 22:15: 00 07-05 21:24 :00 No [id number] 8mg 8 mg, Oral, ONCE, 1 dose, On 07/05/23 at 1715, Routine [facility] ondansetron 4 mg disintegrat ing tablet 07-05 00:00: 00 Yes [id number] 4mg Take 1 tablet by mouth every 8 (eight) hours as needed for Nausea and Vomiting (N/V). [facility] ondansetron 4 mg disintegrat ing tablet 07-05 00:00: 00 Yes [id number] 4mg Take 1 tablet by mouth every 8 (eight) hours as needed for Nausea and Vomiting (N/V). [facility] ondansetron 4 mg disintegrat ing tablet 07-05 00:00: 00 Yes [id number] 4mg Take 1 tablet by mouth every 8 (eight) hours as needed for Nausea and Vomiting (N/V). [facility] ondansetron 4 mg disintegrat ing tablet 07-05 00:00: 00 Yes [id number] 4mg Take 1 tablet by mouth every 8 (eight) hours as needed for Nausea and Vomiting (N/V). [facility] ondansetron 4 mg disintegrat ing tablet 07-05 00:00: 00 Yes [id number] 4mg Take 1 tablet by mouth every 8 (eight) hours as needed for Nausea and Vomiting (N/V). [facility] ondansetron 4 mg disintegrat ing tablet 07-05 00:00: 00 Yes [id number] 4mg Take 1 tablet by mouth every 8 (eight) hours as needed for Nausea and Vomiting (N/V). [facility] ondansetron 4 mg disintegrat ing tablet 07-05 00:00: 00 Yes [id number] 4mg Take 1 tablet by mouth every 8 (eight) hours as needed for Nausea and Vomiting (N/V). [facility] ketorolac (TORADOL) injection 30 mg 05-01 22:00: 00 05-01 21:24 :00 No 30mg 30 mg, Slow IV Push, ONCE, 1 dose, On Thu05/01/23 at 1700, MARILYN [facility] iopamidol (ISOVUE 370-500 mL) injection 75 mL 05-01 21:30: 00 05-01 21:30 :00 No [id number] 75mL 75 mL, Intravenou s, ONCE, 1 dose, On Thu05/01/23 at 1630, Routine [facility] cefTRIAXone (ROCEPHIN) 1,000 mg in NaCl 0.9% (NS) 100 mL MINI-BAG 05-01 21:15: 00 05-01 22:00 :00 No 1000mg 1,000 mg, IV Piggyback, ONCE, 1 dose, On Thu05/01/23 at 1615, Administer over 30 Minutes, 100 mL
Reas on for Anti-Infec tive: Documented Infection< br>Documen nivia Infection Site: Urine
D uration of Therapy: Other (see Comments) [facility] metoclopram royal HCl (REGLAN) injection 10 mg 05-01 21:15: 00 05-01 21:24 :00 No 10mg 10 mg, Slow IV Push, ONCE, 1 dose, On Thu05/01/23 at 1615, MARILYN [facility] metoclopram royal HCl 10 mg tablet 0 05-01 00:00: 00 Yes [id number] 10mg Take 1 tablet by mouth every 6 (six) hours. [facility] cephALEXin (KEFLEX) 500 mg capsule 0 05-01 00:00: 00 Yes [id number] 500mg Take 1 capsule by mouth in the morning and 1 capsule in the evening. [facility] metoclopram royal HCl 10 mg tablet 0 05-01 00:00: 00 Yes [id number] 10mg Take 1 tablet by mouth every 6 (six) hours. [facility] cephALEXin (KEFLEX) 500 mg capsule 0 05-01 00:00: 00 Yes [id number] 500mg Take 1 capsule by mouth in the morning and 1 capsule in the evening. [facility] metoclopram royal HCl 10 mg tablet 0 05-01 00:00: 00 Yes [id number] 10mg Take 1 tablet by mouth every 6 (six) hours. [facility] cephALEXin (KEFLEX) 500 mg capsule 0 14 00:00: 00 Yes [id number] 500mg Take 1 capsule by mouth in the morning and 1 capsule in the evening. [facility] metoclopram royal HCl 10 mg tablet 0 14 00:00: 00 Yes [id number] 10mg Take 1 tablet by mouth every 6 (six) hours. [facility] cephALEXin (KEFLEX) 500 mg capsule 0 14 00:00: 00 Yes [id number] 500mg Take 1 capsule by mouth in the morning and 1 capsule in the evening. [facility] metoclopram royal HCl 10 mg tablet 0 14 00:00: 00 Yes [id number] 10mg Take 1 tablet by mouth every 6 (six) hours. [facility] cephALEXin (KEFLEX) 500 mg capsule 2022-0 14 00:00: 00 Yes [id number] 500mg Take 1 capsule by mouth in the morning and 1 capsule in the evening. [facility] metoclopram royal HCl 10 mg tablet 14 00:00: 00 Yes [id number] 10mg Take 1 tablet by mouth every 6 (six) hours. [facility] cephALEXin (KEFLEX) 500 mg capsule 0 14 00:00: 00 Yes [id number] 500mg Take 1 capsule by mouth in the morning and 1 capsule in the evening. [facility] metoclopram royal HCl 10 mg tablet 0 14 00:00: 00 Yes [id number] 10mg Take 1 tablet by mouth every 6 (six) hours. [facility] cephALEXin (KEFLEX) 500 mg capsule 05-01 00:00: 00 Yes [id number] 500mg Take 1 capsule by mouth in the morning and 1 capsule in the evening. [facility] metoclopram royal HCl 10 mg tablet 05-01 00:00: 00 Yes [id number] 10mg Take 1 tablet by mouth every 6 (six) hours. [facility] cephALEXin (KEFLEX) 500 mg capsule 05-01 00:00: 00 Yes [id number] 500mg Take 1 capsule by mouth in the morning and 1 capsule in the evening. [facility] metoclopram royal HCl 10 mg tablet 05-01 00:00: 00 Yes [id number] 10mg Take 1 tablet by mouth every 6 (six) hours. [facility] cephALEXin (KEFLEX) 500 mg capsule 0 05-01 00:00: 00 Yes [id number] 500mg Take 1 capsule by mouth in the morning and 1 capsule in the evening. [facility] naproxen 500 mg tablet 05-01 00:00: 00 05-12 04:59 :00 No [id number] 500mg Take 1 tablet by mouth in the morning and 1 tablet in the evening. Take with meals. Do all this for 10 days. [facility] NaCl 0.9% (NS) bolus infusion 1,000 mL 2021-10 07:00: 00 10-08 08:24 :00 No 1000mL at 999 mL/hr, 1,000 mL, IV Infusion, ONCE, 1 dose, On Thu10/08/22 at 0100, MARILYN [facility] LORazepam (ATIVAN) injection 0.5 mg 2021-10 06:15: 00 10-08 06:37 :00 No .5mg 0.5 mg, Slow IV Push, ONCE, 1 dose, On Thu10/08/22 at 0015, STAT [facility] metoprolol tartrate 25 mg tablet 2021-10 00:00: 00 10-16 05:59 :00 No [id number] 25mg Take 1 tablet by mouth in the morning and 1 tablet in the evening. Do all this for 7 days. [facility] dicyclomine (BENTYL) injection 20 mg 2021-10 18:45: 00 08-13 18:11 :00 No 20mg 20 mg, Intramuscu lar, ONCE, 1 dose, On Thu08/13/22 at 1345, Routine [facility] iopamidol (ISOVUE 370-500 mL) injection 80 mL 2021-10 18:30: 00 08-13 18:30 :00 No [id number] 80mL 80 mL, Intravenou s, ONCE, 1 dose, On Thu08/13/22 at 1330, Routine [facility] metoclopram royal HCl (REGLAN) injection 10 mg 2021-10 18:00: 00 08-13 18:04 :00 No 10mg 10 mg, Slow IV Push, ONCE, 1 dose, On Thu08/13/22 at 1300, [facility]ILY[facility] ketorolac (TORADOL) injection 30 mg 2021-10 18:00: 00 08-13 17:07 :00 No 30mg 30 mg, Slow IV Push, ONCE, 1 dose, On Thu08/13/22 at 1300, Routine [facility] NaCl 0.9% (NS) bolus infusion 1,000 mL 2021-10 17:30: 00 08-13 17:57 :00 No 1000mL at 999 mL/hr, 1,000 mL, IV Infusion, ONCE, 1 dose, On Thu08/13/22 at 1230, [facility] ondansetron (ZOFRAN (PF)) injection 4 mg 2021-10 17:00: 00 08-13 17:07 :00 No 4mg 4 mg, Slow IV Push, ONCE, 1 dose, On Thu08/13/22 at 1200, [facility]ILY[facility] morpHINE (4 mg/mL) injection 4 mg 2021-10 17:00: 00 08-13 17:08 :00 No 4mg 4 mg, Slow IV Push, ONCE, 1 dose, On Thu08/13/22 at 1200, STAT [facility] maalox:diph enhydrAMINE :lidocaine 2 % viscous 1:1:1 (FIRST-MOUT HWASH BLM) oral suspension 15 mL 2021-10 17:00: 00 08-13 17:14 :00 No 15mL 15 mL, Oral, ONCE, 1 dose, On Thu08/13/22 at 1200, Routine [facility] metoclopram royal HCl 10 mg tablet 2021-10 00:00: 00 Yes [id number] 10mg Take 1 tablet by mouth every 6 (six) hours as needed for Nausea and Vomiting (N/V). [facility] metoclopram royal HCl 10 mg tablet 2021-10 00:00: 00 Yes [id number] 10mg Take 1 tablet by mouth every 6 (six) hours as needed for Nausea and Vomiting (N/V). [facility] metoclopram royal HCl 10 mg tablet 2021-10 00:00: 00 11-01 00:00 :00 No [id number] 10mg Take 1 tablet by mouth every 6 (six) hours as needed for Nausea and Vomiting (N/V). [facility] dicyclomine 20 mg tablet 2021-10 00:00: 00 08-21 04:59 :00 No [id number] 20mg Take 1 tablet by mouth 4 (four) times daily for 7 days. [facility] benzonatate 200 mg capsule 07-14 00:00: 00 Yes [id number] 200mg Take 1 capsule by mouth 3 (three) times daily as needed for Cough. [facility] ibuprofen 800 mg tablet 07-14 00:00: 00 Yes [id number] 800mg Take 1 tablet by mouth every 8 (eight) hours as needed for Temp > 38.5 C or Pain (scale 4-6). [facility] ondansetron (ZOFRAN) 4 mg tablet 07-14 00:00: 00 Yes [id number] 4mg Take 1 tablet by mouth every 8 (eight) hours as needed for Nausea and Vomiting (N/V). [facility] benzonatate 200 mg capsule 07-14 00:00: 00 Yes [id number] 200mg Take 1 capsule by mouth 3 (three) times daily as needed for Cough. [facility] ibuprofen 800 mg tablet 07-14 00:00: 00 Yes [id number] 800mg Take 1 tablet by mouth every 8 (eight) hours as needed for Temp > 38.5 C or Pain (scale 4-6). [facility] ondansetron (ZOFRAN) 4 mg tablet 07-14 00:00: 00 Yes [id number] 4mg Take 1 tablet by mouth every 8 (eight) hours as needed for Nausea and Vomiting (N/V). [facility] benzonatate 200 mg capsule 0 07-14 00:00: 00 Yes [id number] 200mg Take 1 capsule by mouth 3 (three) times daily as needed for Cough. [facility] ibuprofen 800 mg tablet 07-14 00:00: 00 Yes [id number] 800mg Take 1 tablet by mouth every 8 (eight) hours as needed for Temp > 38.5 C or Pain (scale 4-6). [facility] ondansetron (ZOFRAN) 4 mg tablet 0 07-14 00:00: 00 Yes [id number] 4mg Take 1 tablet by mouth every 8 (eight) hours as needed for Nausea and Vomiting (N/V). [facility] benzonatate 200 mg capsule 07-14 00:00: 00 11-01 00:00 :00 No [id number] 200mg Take 1 capsule by mouth 3 (three) times daily as needed for Cough. [facility] ibuprofen 800 mg tablet 07-14 00:00: 00 11-01 00:00 :00 No [id number] 800mg Take 1 tablet by mouth every 8 (eight) hours as needed for Temp > 38.5 C or Pain (scale 4-6). [facility] ondansetron (ZOFRAN) 4 mg tablet 07-14 00:00: 00 11-01 00:00 :00 No [id number] 4mg Take 1 tablet by mouth every 8 (eight) hours as needed for Nausea and Vomiting (N/V). [facility] doxycycline hyclate 100 mg tablet 02-17 00:00: 00 No 1mg Dose Unknown 02-17 00:00: 00 No Dose Unknown 14 00:00: 00 No ondansetron (ZOFRAN (PF)) injection 4 mg 05 06:00: 00 12-21 05:12 :00 No 4mg 4 mg, Slow IV Push, ONCE, 1 dose, [facility]21 [facility] 0000[facility] 0.9% (NS) bolus infusion 1,000 mL 05 06:00: 00 12-21 07:20 :00 No 1000mL at 999 mL/hr, 1,000 mL, IV Infusion, ONCE, 1 dose, On 12/21/21 at 0000[facility] (ZOFRAN-ODT ) disintegrat ing tablet 4 mg 305 06:00: 00 12-21 04:56 :00 No 4mg 4 mg, Oral, ONCE, 1 dose, On 12/21/21 at 0000, Routine [facility] ondansetron 4 mg disintegrat ing tablet 305 00:00: 00 Yes [id number] 4mg Take 1 tablet by mouth every 8 (eight) hours as needed for Nausea and Vomiting (N/V). [facility] ondansetron 4 mg disintegrat ing tablet 305 00:00: 00 Yes [id number] 4mg Take 1 tablet by mouth every 8 (eight) hours as needed for Nausea and Vomiting (N/V). [facility] ondansetron 4 mg disintegrat ing tablet 05 00:00: 00 Yes [id number] 4mg Take 1 tablet by mouth every 8 (eight) hours as needed for Nausea and Vomiting (N/V). [facility] ondansetron 4 mg disintegrat ing tablet 12-21 00:00: 00 Yes [id number] 4mg Take 1 tablet by mouth every 8 (eight) hours as needed for Nausea and Vomiting (N/V). [facility] ondansetron 4 mg disintegrat ing tablet 12-21 00:00: 00 Yes [id number] 4mg Take 1 tablet by mouth every 8 (eight) hours as needed for Nausea and Vomiting (N/V). [facility] ondansetron 4 mg disintegrat ing tablet 12-21 00:00: 00 11-01 00:00 :00 No [id number] 4mg Take 1 tablet by mouth every 8 (eight) hours as needed for Nausea and Vomiting (N/V). [facility] ketorolac (TORADOL) injection 30 mg 11-03 08:00: 00 11-03 07:15 :00 No 30mg 30 mg, Slow IV Push, ONCE, 1 dose, [facility] 11/03/21 at 0200[facility] 325 mg 11-03 07:00: 00 11-03 06:02 :00 No 325mg 325 mg, Oral, ONCE, 1 dose, On 11/03/21 at 0100, [facility] Dose Unknown 2020-10 0-03 00:00: 00 No Dose Unknown 2020-10 0- 00:00: 00 No medroxyprog esterone 150 mg/mL intramuscul ar suspension 9-29 00:00: 00 No 1mg/mL metronidazo le 500 mg tablet 7-20 00:00: 00 No 1mg Diflucan 150 mg tablet 7-07 00:00: 00 No mg ondansetron (ZOFRAN ODT) 4 mg disintegrat ing tablet 03-19 00:00: 00 Yes [id number] 4mg Take 1 tablet by mouth every 8 (eight) hours as needed for Nausea and Vomiting (N/V). [facility] ondansetron (ZOFRAN ODT) 4 mg disintegrat ing tablet 03-19 00:00: 00 Yes [id number] 4mg Take 1 tablet by mouth every 8 (eight) hours as needed for Nausea and Vomiting (N/V). [facility] ondansetron (ZOFRAN ODT) 4 mg disintegrat ing tablet 03-19 00:00: 00 Yes [id number] 4mg Take 1 tablet by mouth every 8 (eight) hours as needed for Nausea and Vomiting (N/V). [facility] ondansetron (ZOFRAN ODT) 4 mg disintegrat ing tablet 03-19 00:00: 00 12-21 00:00 :00 No [id number] 4mg Take 1 tablet by mouth every 8 (eight) hours as needed for Nausea and Vomiting (N/V). [facility] Zofran 4 mg tablet 01-11 00:00: 00 No 1mg propranolol 10 mg tablet 01-11 00:00: 00 No 1mg methimazole 10 mg tablet - 00:00: 00 No 1mg methimazole 10 mg tablet 3- 00:00: 00 No 2mg propranolol 60 mg tablet 3- 00:00: 00 No 1mg methIMAzole 10 mg tablet 2-15 00:00: 00 Yes [id number] 20mg Take 2 tablets by mouth daily. [facility] propranoloL 60 mg tablet 2020-0 2-15 00:00: 00 Yes [id number] 60mg Take 1 tablet by mouth 2 (two) times daily. [facility] methIMAzole 10 mg tablet 2020-0 2-15 00:00: 00 Yes [id number] 20mg Take 2 tablets by mouth daily. [facility] propranoloL 60 mg tablet 2020-0 2-15 00:00: 00 Yes [id number] 60mg Take 1 tablet by mouth 2 (two) times daily. [facility] methIMAzole 10 mg tablet 2020-0 2-15 00:00: 00 Yes [id number] 20mg Take 2 tablets by mouth daily. [facility] propranoloL 60 mg tablet 2020-0 2-15 00:00: 00 Yes [id number] 60mg Take 1 tablet by mouth 2 (two) times daily. [facility] methIMAzole 10 mg tablet 2020-0 2-15 00:00: 00 Yes [id number] 20mg Take 2 tablets by mouth daily. [facility] propranoloL 60 mg tablet 2020-0 2-15 00:00: 00 Yes [id number] 60mg Take 1 tablet by mouth 2 (two) times daily. [facility] methIMAzole 10 mg tablet 2020-0 2-15 00:00: 00 Yes [id number] 20mg Take 2 tablets by mouth daily. [facility] propranoloL 60 mg tablet 2020-0 2-15 00:00: 00 Yes [id number] 60mg Take 1 tablet by mouth 2 (two) times daily. [facility] methIMAzole 10 mg tablet 2020-0 2-15 00:00: 00 Yes [id number] 20mg Take 2 tablets by mouth daily. [facility] propranoloL 60 mg tablet 1-0 2-15 00:00: 00 Yes [id number] 60mg Take 1 tablet by mouth 2 (two) times daily. [facility] methIMAzole 10 mg tablet 1-0 2-15 00:00: 00 Yes [id number] 20mg Take 2 tablets by mouth daily. [facility] propranoloL 60 mg tablet 2020-0 2-15 00:00: 00 Yes [id number] 60mg Take 1 tablet by mouth 2 (two) times daily. [facility] methIMAzole 10 mg tablet 2020-0 2-15 00:00: 00 Yes [id number] 20mg Take 2 tablets by mouth daily. [facility] propranoloL 60 mg tablet 2020-0 2-15 00:00: 00 Yes [id number] 60mg Take 1 tablet by mouth 2 (two) times daily. [facility] methIMAzole 10 mg tablet 2020-0 2-15 00:00: 00 Yes [id number] 20mg Take 2 tablets by mouth daily. [facility] propranoloL 60 mg tablet 2020-0 -15 00:00: 00 Yes [id number] 60mg Take 1 tablet by mouth 2 (two) times daily. [facility] methIMAzole 10 mg tablet 2020-0 2-15 00:00: 00 Yes [id number] 20mg Take 2 tablets by mouth daily. [facility] propranoloL 60 mg tablet 2020-0 -15 00:00: 00 Yes [id number] 60mg Take 1 tablet by mouth 2 (two) times daily. [facility] methIMAzole 10 mg tablet 2020-0 -15 00:00: 00 Yes [id number] 20mg Take 2 tablets by mouth daily. [facility] propranoloL 60 mg tablet 2020-0 2-15 00:00: 00 Yes [id number] 60mg Take 1 tablet by mouth 2 (two) times daily. [facility] methIMAzole 10 mg tablet 2020-0 2-15 00:00: 00 Yes [id number] 20mg Take 2 tablets by mouth daily. [facility] propranoloL 60 mg tablet 1-0 2-15 00:00: 00 Yes [id number] 60mg Take 1 tablet by mouth 2 (two) times daily. [facility] methIMAzole 10 mg tablet 2020-0 2-15 00:00: 00 Yes [id number] 20mg Take 2 tablets by mouth daily. [facility] propranoloL 60 mg tablet 1-0 2-15 00:00: 00 Yes [id number] 60mg Take 1 tablet by mouth 2 (two) times daily. [facility] methIMAzole 10 mg tablet 2020-0 2-15 00:00: 00 Yes [id number] 20mg Take 2 tablets by mouth daily. [facility] propranoloL 60 mg tablet 2020-0 2-15 00:00: 00 Yes [id number] 60mg Take 1 tablet by mouth 2 (two) times daily. [facility] methIMAzole 10 mg tablet 2020-0 2-15 00:00: 00 Yes [id number] 20mg Take 2 tablets by mouth daily. [facility] propranoloL 60 mg tablet 1-0 2-15 00:00: 00 Yes [id number] 60mg Take 1 tablet by mouth 2 (two) times daily. [facility] methIMAzole 10 mg tablet 2020-0 2-15 00:00: 00 Yes [id number] 20mg Take 2 tablets by mouth daily. [facility] propranoloL 60 mg tablet 2020-0 2-15 00:00: 00 Yes [id number] 60mg Take 1 tablet by mouth 2 (two) times daily. [facility] methIMAzole 10 mg tablet 2020-0 2-15 00:00: 00 Yes [id number] 20mg Take 2 tablets by mouth daily. [facility] propranoloL 60 mg tablet 1-0 2-15 00:00: 00 Yes [id number] 60mg Take 1 tablet by mouth 2 (two) times daily. [facility] methIMAzole 10 mg tablet 2020-0 2-15 00:00: 00 Yes [id number] 20mg Take 2 tablets by mouth daily. [facility] propranoloL 60 mg tablet 1-0 2-15 00:00: 00 Yes [id number] 60mg Take 1 tablet by mouth 2 (two) times daily. [facility] methIMAzole 10 mg tablet 2020-0 2-15 00:00: 00 Yes [id number] 20mg Take 2 tablets by mouth daily. [facility] propranoloL 60 mg tablet 1-0 2-15 00:00: 00 Yes [id number] 60mg Take 1 tablet by mouth 2 (two) times daily. [facility] methIMAzole 10 mg tablet 2-15 00:00: 00 Yes [id number] 20mg Take 2 tablets by mouth daily. [facility] propranoloL 60 mg tablet 2-15 00:00: 00 Yes [id number] 60mg Take 1 tablet by mouth 2 (two) times daily. [facility] propranoloL 60 mg tablet 2-14 00:00: 00 Yes [id number] 60mg Take 1 tablet by mouth 2 (two) times daily. [facility] ondansetron (ZOFRAN ODT) 4 mg disintegrat ing tablet -14 00:00: 00 Yes [id number] 4mg Take 1 tablet by mouth every 6 (six) hours as needed for Nausea and Vomiting (N/V). [facility] propranoloL 60 mg tablet -14 00:00: 00 Yes [id number] 60mg Take 1 tablet by mouth 2 (two) times daily. [facility] ondansetron (ZOFRAN ODT) 4 mg disintegrat ing tablet 14 00:00: 00 Yes [id number] 4mg Take 1 tablet by mouth every 6 (six) hours as needed for Nausea and Vomiting (N/V). [facility] propranoloL 60 mg tablet -14 00:00: 00 Yes [id number] 60mg Take 1 tablet by mouth 2 (two) times daily. [facility] ondansetron (ZOFRAN ODT) 4 mg disintegrat ing tablet 14 00:00: 00 Yes [id number] 4mg Take 1 tablet by mouth every 6 (six) hours as needed for Nausea and Vomiting (N/V). [facility] propranoloL 60 mg tablet 0 -14 00:00: 00 Yes [id number] 60mg Take 1 tablet by mouth 2 (two) times daily. [facility] propranoloL 60 mg tablet 0 2-14 00:00: 00 Yes [id number] 60mg Take 1 tablet by mouth 2 (two) times daily. [facility] propranoloL 60 mg tablet 12-02 00:00: 00 Yes [id number] 60mg Take 1 tablet by mouth 2 (two) times daily. [facility] propranoloL 60 mg tablet 12-02 00:00: 00 Yes [id number] 60mg Take 1 tablet by mouth 2 (two) times daily. [facility] propranoloL 60 mg tablet 12-02 00:00: 00 Yes [id number] 60mg Take 1 tablet by mouth 2 (two) times daily. [facility] propranoloL 60 mg tablet 12-02 00:00: 00 11-01 00:00 :00 No [id number] 60mg Take 1 tablet by mouth 2 (two) times daily. [facility] ondansetron (ZOFRAN ODT) 4 mg disintegrat ing tablet 12-02 00:00: 00 12-21 00:00 :00 No [id number] 4mg Take 1 tablet by mouth every 6 (six) hours as needed for Nausea and Vomiting (N/V). [facility] [employer]o-[employer]way Technician a 150 mg/mL intramuscul ar syringe Dep[employer]way Technician a 150 mg/mL intramuscul ar syringe No Depo-Prove ra 150 mg/mL intramuscu lar syringe [facility] methimazole 10 mg tablet Take 1 tablet twice a day by oral route. methimazole 10 mg tablet Take 1 tablet twice a day by oral route. No 1 BID methimazol e 10 mg tablet Take 1 tablet twice a day by oral route. [facility] propranolol 20 mg tablet Take 1 tablet 3 times a day by oral route. propranolol 20 mg tablet Take 1 tablet 3 times a day by oral route. No 1 TID propranolo l 20 mg tablet Take 1 tablet 3 times a day by oral route. [facility] propranolol 60 mg tablet Take 1 tablet twice a day by oral route. propranolol 60 mg tablet Take 1 tablet twice a day by oral route. No 1 BID propranolo l 60 mg tablet Take 1 tablet twice a day by oral route. [facility] [employer]way Technician a 150 mg/mL intramuscul ar syringe Dep[employer]way Technician a 150 mg/mL intramuscul ar syringe No Depo-Prove ra 150 mg/mL intramuscu lar syringe [facility] methimazole 10 mg tablet Take 1 tablet every day by oral route for 30 days. methimazole 10 mg tablet Take 1 tablet every day by oral route for 30 days. No 1 Q1D methimazol e 10 mg tablet Take 1 tablet every day by oral route for 30 days. [facility] propranolol 20 mg tablet Take 1 tablet every day by oral route for 30 days. propranolol 20 mg tablet Take 1 tablet every day by oral route for 30 days. No 1 Q1D propranolo l 20 mg tablet Take 1 tablet every day by oral route for 30 days. [facility] methimazole 10 mg tablet Take 1 tablet every day by oral route for 30 days. methimazole 10 mg tablet Take 1 tablet every day by oral route for 30 days. No 1 Q1D methimazol e 10 mg tablet Take 1 tablet every day by oral route for 30 days. [facility] propranolol 20 mg tablet Take 1 tablet every day by oral route for 30 days. propranolol 20 mg tablet Take 1 tablet every day by oral route for 30 days. No 1 Q1D propranolo l 20 mg tablet Take 1 tablet every day by oral route for 30 days. [facility] methimazole 10 mg tablet Take 1 tablet every day by oral route for 30 days. methimazole 10 mg tablet Take 1 tablet every day by oral route for 30 days. No 1 Q1D methimazol e 10 mg tablet Take 1 tablet every day by oral route for 30 days. [facility] Immunizations Ordered Immunization Name Filled Immunization Name Date Status Comments Source Moderna COVID-19 Vaccine 2021-05-13 00:00:00 Completed Moderna COVID-19 Vaccine 2021-04-09 00:00:00 Completed Influenza Virus Vaccine Quad .5 mL IM 6+ MO 2019-08-18 00:00:00 Completed [facility] HPV9 2019-08-18 00:00:00 Completed [facility] Influenza Virus Vaccine Quad .5 mL IM 6+ MO 2019-08-18 00:00:00 Completed [facility] HPV9 2019-08-18 00:00:00 Completed [facility] Influenza Virus Vaccine Quad .5 mL IM 6+ MO 2019-08-18 00:00:00 Completed [facility] HPV9 2019-08-18 00:00:00 Completed [facility] Influenza Virus Vaccine Quad .5 mL IM 6+ MO 2019-08-18 00:00:00 Completed [facility] HPV9 2019-08-18 00:00:00 Completed [facility] Influenza Virus Vaccine Quad .5 mL IM 6+ MO 2019-08-18 00:00:00 Completed [facility] HPV9 2019-08-18 00:00:00 Completed [facility] Influenza Virus Vaccine Quad .5 mL IM 6+ MO 2019-08-18 00:00:00 Completed [facility] HPV9 2019-08-18 00:00:00 Completed [facility] Influenza Virus Vaccine Quad .5 mL IM 6+ MO 2019-08-18 00:00:00 Completed [facility] HPV9 2019-08-18 00:00:00 Completed [facility] Influenza Virus Vaccine Quad .5 mL IM 6+ MO 2019-08-18 00:00:00 Completed [facility] HPV9 2019-08-18 00:00:00 Completed [facility] Influenza Virus Vaccine Quad .5 mL IM 6+ MO 2019-08-18 00:00:00 Completed [facility] HPV9 2019-08-18 00:00:00 Completed [facility] Influenza Virus Vaccine Quad .5 mL IM 6+ MO 2019-08-18 00:00:00 Completed [facility] HPV9 2019-08-18 00:00:00 Completed [facility] Influenza Virus Vaccine Quad .5 mL IM 6+ MO 2019-08-18 00:00:00 Completed [facility] HPV9 2019-08-18 00:00:00 Completed [facility] Influenza Virus Vaccine Quad .5 mL IM 6+ MO 2019-08-18 00:00:00 Completed [facility] HPV9 2019-08-18 00:00:00 Completed [facility] Influenza Virus Vaccine Quad .5 mL IM 6+ MO (FLUZONE/FLULAVAL/F LUARIX) 2019-08-18 00:00:00 Completed [facility] HPV9 2019-08-18 00:00:00 Completed [facility] Influenza Virus Vaccine Quad .5 mL IM 6+ MO (FLUZONE/FLULAVAL/F LUARIX) 2019-08-18 00:00:00 Completed [facility] HPV9 2019-08-18 00:00:00 Completed [facility] TDAP 2019-04-26 00:00:00 Completed [facility] TDAP 2019-04-26 00:00:00 Completed [facility] TDAP 2019-04-26 00:00:00 Completed [facility] TDAP 2019-04-26 00:00:00 Completed [facility] TDAP 2019-04-26 00:00:00 Completed [facility] TDAP 2019-04-26 00:00:00 Completed [facility] TDAP 2019-04-26 00:00:00 Completed [facility] TDAP 2019-04-26 00:00:00 Completed [facility] TDAP 2019-04-26 00:00:00 Completed [facility] TDAP 2019-04-26 00:00:00 Completed [facility] TDAP 2019-04-26 00:00:00 Completed [facility] TDAP 2019-04-26 00:00:00 Completed [facility] TDAP 2019-04-26 00:00:00 Completed [facility] TDAP 2019-04-26 00:00:00 Completed [facility] Influenza Virus Vaccine Quad .5 mL IM 6+ MO 2018-11-26 00:00:00 Completed [facility] Influenza Virus Vaccine 2018-11-26 00:00:00 Completed [facility] Influenza Virus Vaccine Quad .5 mL IM 6+ MO 2018-11-26 00:00:00 Completed [facility] Influenza Virus Vaccine 2018-11-26 00:00:00 Completed [facility] Influenza Virus Vaccine Quad .5 mL IM 6+ MO 2018-11-26 00:00:00 Completed [facility] Influenza Virus Vaccine 2018-11-26 00:00:00 Completed [facility] Influenza Virus Vaccine Quad .5 mL IM 6+ MO 2018-11-26 00:00:00 Completed [facility] Influenza Virus Vaccine 2018-11-26 00:00:00 Completed [facility] Influenza Virus Vaccine Quad .5 mL IM 6+ MO 2018-11-26 00:00:00 Completed [facility] Influenza Virus Vaccine 2018-11-26 00:00:00 Completed [facility] Influenza Virus Vaccine Quad .5 mL IM 6+ MO 2018-11-26 00:00:00 Completed [facility] Influenza Virus Vaccine 2018-11-26 00:00:00 Completed [facility] Influenza Virus Vaccine Quad .5 mL IM 6+ MO 2018-11-26 00:00:00 Completed [facility] Influenza Virus Vaccine 2018-11-26 00:00:00 Completed [facility] Influenza Virus Vaccine Quad .5 mL IM 6+ MO 2018-11-26 00:00:00 Completed [facility] Influenza Virus Vaccine 2018-11-26 00:00:00 Completed [facility] Influenza Virus Vaccine Quad .5 mL IM 6+ MO 2018-11-26 00:00:00 Completed [facility] Influenza Virus Vaccine 2018-11-26 00:00:00 Completed [facility] Influenza Virus Vaccine Quad .5 mL IM 6+ MO 2018-11-26 00:00:00 Completed [facility] Influenza Virus Vaccine 2018-11-26 00:00:00 Completed [facility] Influenza Virus Vaccine Quad .5 mL IM 6+ MO 2018-11-26 00:00:00 Completed [facility] Influenza Virus Vaccine 2018-11-26 00:00:00 Completed [facility] Influenza Virus Vaccine Quad .5 mL IM 6+ MO 2018-11-26 00:00:00 Completed [facility] Influenza Virus Vaccine 2018-11-26 00:00:00 Completed [facility] Influenza Virus Vaccine Quad .5 mL IM 6+ MO (FLUZONE/FLULAVAL/F LUARIX) 2018-11-26 00:00:00 Completed [facility] Influenza Virus Vaccine 2018-11-26 00:00:00 Completed [facility] Influenza Virus Vaccine Quad .5 mL IM 6+ MO (FLUZONE/FLULAVAL/F LUARIX) 2018-11-26 00:00:00 Completed [facility] Influenza Virus Vaccine 2018-11-26 00:00:00 Completed [facility] Influenza Virus Vaccine Quad .5 mL IM 6+ MO (FLUZONE/FLULAVAL/F LUARIX) Unknown Completed [facility] Influenza Virus Vaccine Unknown Completed [facility] TDAP Unknown Completed [facility] Influenza Virus Vaccine Quad .5 mL IM 6+ MO (FLUZONE/FLULAVAL/F LUARIX) Unknown Completed [facility] HPV9 Unknown Completed [facility] Influenza Virus Vaccine Quad .5 mL IM 6+ MO (FLUZONE/FLULAVAL/F LUARIX) Unknown Completed [facility] Influenza Virus Vaccine Unknown Completed [facility] TDAP Unknown Completed [facility] Influenza Virus Vaccine Quad .5 mL IM 6+ MO (FLUZONE/FLULAVAL/F LUARIX) Unknown Completed [facility] HPV9 Unknown Completed [facility] Influenza Virus Vaccine Quad .5 mL IM 6+ MO (FLUZONE/FLULAVAL/F LUARIX) Unknown Completed [facility] Influenza Virus Vaccine Unknown Completed [facility] TDAP Unknown Completed [facility] Influenza Virus Vaccine Quad .5 mL IM 6+ MO (FLUZONE/FLULAVAL/F LUARIX) Unknown Completed [facility] HPV9 Unknown Completed [facility] Influenza Virus Vaccine Quad .5 mL IM 6+ MO (FLUZONE/FLULAVAL/F LUARIX) Unknown Completed [facility] Influenza Virus Vaccine Unknown Completed [facility] TDAP Unknown Completed [facility] Influenza Virus Vaccine Quad .5 mL IM 6+ MO (FLUZONE/FLULAVAL/F LUARIX) Unknown Completed [facility] HPV9 Unknown Completed [facility] Influenza Virus Vaccine Quad .5 mL IM 6+ MO (FLUZONE/FLULAVAL/F LUARIX) Unknown Completed [facility] Influenza Virus Vaccine Unknown Completed [facility] TDAP Unknown Completed [facility] Influenza Virus Vaccine Quad .5 mL IM 6+ MO (FLUZONE/FLULAVAL/F LUARIX) Unknown Completed [facility] HPV9 Unknown Completed [facility] Influenza Virus Vaccine Quad .5 mL IM 6+ MO (FLUZONE/FLULAVAL/F LUARIX) Unknown Completed [facility] Influenza Virus Vaccine Unknown Completed [facility] TDAP Unknown Completed [facility] Influenza Virus Vaccine Quad .5 mL IM 6+ MO (FLUZONE/FLULAVAL/F LUARIX) Unknown Completed [facility] HPV9 Unknown Completed [facility] Vital Signs Vital Name Observation Time Observation Value Comments [facility] Systolic blood pressure 2023-10-18 18:00:00 130 mm[Hg] [facility] Diastolic blood pressure 2023-10-18 18:00:00 80 mm[Hg] [facility] Heart rate 2023-10-18 18:00:00 76 /min [facility] Respiratory rate 2023-10-18 18:00:00 17 /min [facility] Oxygen saturation in Arterial blood by Pulse oximetry 2023-10-18 18:00:00 100 /min [facility] Body temperature 2023-10-18 16:28:00 37.11 Sybil [facility] Body height 2023-10-18 16:28:00 149.9 cm [facility] Body weight 2023-10-18 16:28:00 72.576 kg [facility] BMI 2023-10-18 16:28:00 32.32 kg/m2 [facility] Systolic blood pressure 2023-09-25 16:40:00 105 mm[Hg] [facility] Diastolic blood pressure 2023-09-25 16:40:00 77 mm[Hg] [facility] Heart rate 2023-09-25 16:40:00 93 /min [facility] Body temperature 2023-09-25 16:40:00 37.17 Sybil [facility] Respiratory rate 2023-09-25 16:40:00 18 /min [facility] Body height 2023-09-25 16:40:00 149.9 cm [facility] Body weight 2023-09-25 16:40:00 72.235 kg [facility] BMI 2023-09-25 16:40:00 32.16 kg/m2 [facility] Oxygen saturation in Arterial blood by Pulse oximetry 2023-09-25 16:40:00 100 /min [facility] Systolic blood pressure 2023-09-14 00:51:00 104 mm[Hg] [facility] Diastolic blood pressure 2023-09-14 00:51:00 72 mm[Hg] [facility] Heart rate 2023-09-14 00:51:00 95 /min [facility] Body temperature 2023-09-14 00:51:00 36.83 Sybil [facility] Respiratory rate 2023-09-14 00:51:00 17 /min [facility] Body height 2023-09-14 00:51:00 149.9 cm [facility] 2023-09-14 00:51:[address] [facility] BMI 2023-09-14 00:51:00 32.32 kg/m2 [facility] Oxygen saturation in Arterial blood by Pulse oximetry 2023-09-14 00:51:00 97 /min [facility] Systolic blood pressure 2023-07-22 17:14:08 124 mm[Hg] [facility] Diastolic blood pressure 2023-07-22 17:14:08 83 mm[Hg] [facility] Heart rate 2023-07-22 17:14:08 97 /min [facility] Body temperature 2023-07-22 17:14:08 37.39 Sybil [facility] Respiratory rate 2023-07-22 17:14:08 20 /min [facility] Body height 2023-07-22 17:13:[address] [facility] Body weight 2023-07-22 17:13:[address] [facility] BMI 2023-07-22 17:13:00 32.03 kg/m2 [facility] Oxygen saturation in Arterial blood by Pulse oximetry 2023-07-22 17:13:00 100 /min [facility] Systolic blood pressure 2023-07-22 00:25:00 103 mm[Hg] [facility] Diastolic blood pressure 2023-07-22 00:25:00 71 mm[Hg] [facility] Heart rate 2023-07-22 00:25:00 104 /min [facility] Body temperature 2023-07-22 00:25:00 36.78 Sybil [facility] Respiratory rate 2023-07-22 00:25:00 16 /min [facility] Body weight 2023-07-22 00:25:[address] [facility] BMI 2023-07-22 00:25:00 31.31 kg/m2 [facility] Oxygen saturation in Arterial blood by Pulse oximetry 2023-07-22 00:25:00 97 /min [facility] Systolic blood pressure 2023-07-05 20:52:00 111 mm[Hg] [facility] Diastolic blood pressure 2023-07-05 20:52:00 77 mm[Hg] [facility] Heart rate 2023-07-05 20:52:00 90 /min [facility] Body temperature 2023-07-05 20:52:00 37.17 Sybil [facility] Respiratory rate 2023-07-05 20:52:00 14 /min [facility] Body height 2023-07-05 20:52:00 149.9 cm [facility] Body weight 2023-07-05 20:52:[address] [facility] BMI 2023-07-05 20:52:00 31.81 kg/m2 [facility] Oxygen saturation in Arterial blood by Pulse oximetry 2023-07-05 20:52:00 97 /min [facility] Systolic blood pressure 2023-05-01 23:00:00 97 mm[Hg] [facility] Diastolic blood pressure 2023-05-01 23:00:00 84 mm[Hg] [facility] Heart rate 2023-05-01 23:00:00 67 /min [facility] Respiratory rate 2023-05-01 23:00:00 16 /min [facility] Oxygen saturation in Arterial blood by Pulse oximetry 2023-05-01 23:00:00 99 /min [facility] Body temperature 2023-05-01 18:55:00 37.39 Sybil [facility] Body height 2023-05-01 18:55:00 149.9 cm [facility] Body weight 2023-05-01 18:55:00 68.04 kg [facility] BMI 2023-05-01 18:55:00 30.30 kg/m2 [facility] Systolic blood pressure 2023-01-31 12:31:00 125 mm[Hg] [facility] Diastolic blood pressure 2023-01-31 12:31:00 83 mm[Hg] [facility] Heart rate 2023-01-31 12:31:00 101 /min [facility] Body temperature 2023-01-31 12:31:00 37.22 Sybil [facility] Respiratory rate 2023-01-31 12:31:00 18 /min [facility] Body weight 2023-01-31 12:31:00 68.04 kg [facility] BMI 2023-01-31 12:31:00 30.30 kg/m2 [facility] Oxygen saturation in Arterial blood by Pulse oximetry 2023-01-31 12:31:00 99 /min [facility] BP Diastolic 2022-12-04 00:00:00 72 mm[Hg] [facility] Height 2022-12-04 00:00:00 59 [in_i] [facility] BMI (Body Mass Index) 2022-12-04 00:00:00 33.1 kg/m2 [facility] BP Systolic 2022-12-04 00:00:00 118 mm[Hg] [facility] Body Weight 2022-12-04 00:00:00 164 [lb_av] [facility] Systolic blood pressure 2022-11-01 23:40:00 99 mm[Hg] [facility] Diastolic blood pressure 2022-11-01 23:40:00 75 mm[Hg] [facility] Heart rate 2022-11-01 23:40:00 73 /min [facility] Respiratory rate 2022-11-01 23:40:00 15 /min [facility] Oxygen saturation in Arterial blood by Pulse oximetry 2022-11-01 23:40:00 99 /min [facility] Body temperature 2022-11-01 22:06:00 36.17 Sybil [facility] Body height 2022-11-01 22:06:[address] [facility] Body weight 2022-11-01 22:06:[address] [facility] BMI 2022-11-01 22:06:00 30.30 kg/m2 [facility] Systolic blood pressure 2022-10-08 08:00:00 120 mm[Hg] [facility] Diastolic blood pressure 2022-10-08 08:00:00 84 mm[Hg] [facility] Heart rate 2022-10-08 08:00:00 90 /min [facility] Respiratory rate 2022-10-08 08:00:00 21 /min [facility] Oxygen saturation in Arterial blood by Pulse oximetry 2022-10-08 08:00:00 100 /min [facility] Body temperature 2022-10-08 05:56:00 37.17 Sybil [facility] Body height 2022-10-08 05:56:[address] [facility] Body weight 2022-10-08 05:56:00 68.04 kg [facility] BMI 2022-10-08 05:56:00 30.30 kg/m2 [facility] Systolic blood pressure 2022-08-13 18:00:00 100 mm[Hg] [facility] Diastolic blood pressure 2022-08-13 18:00:00 56 mm[Hg] [facility] Heart rate 2022-08-13 18:00:00 80 /min [facility] [facility] Res[facility] rate 2022-08-13 18:00:00 13 /min [facility] Oxygen saturation in Arterial blood by Pulse oximetry 2022-08-13 18:00:00 100 /min [facility] Body temperature 2022-08-13 16:28:00 37.17 Sybil [facility] Body weight 2022-08-13 16:28:00 65.772 kg [facility] BMI 2022-08-13 16:28:00 29.29 kg/m2 [facility] Body weight 2022-07-15 00:59:00 70.67 kg [facility] BMI 2022-07-15 00:59:00 31.47 kg/m2 [facility] Oxygen saturation in Arterial blood by Pulse oximetry 2022-07-15 00:59:00 99 /min [facility] Systolic blood pressure 2022-07-15 00:59:00 115 mm[Hg] [facility] Diastolic blood pressure 2022-07-15 00:59:00 73 mm[Hg] [facility] Heart rate 2022-07-15 00:59:00 102 /min [facility] Body temperature 2022-07-15 00:59:00 37.5 Sybil [facility] Respiratory rate 2022-07-15 00:59:00 20 /min [facility] Body height 2022-07-15 00:59:00 149.9 cm [facility] BP Diastolic 2022-06-12 00:00:00 60 mm[Hg] [facility] Height 2022-06-12 00:00:00 59 [in_i] [facility] BMI (Body Mass Index) 2022-06-12 00:00:00 30.9 kg/m2 [facility] BP Systolic 2022-06-12 00:00:00 104 mm[Hg] [facility] Body Weight 2022-06-12 00:00:00 153 [lb_av] [facility] Systolic blood pressure 2021-12-21 07:00:00 107 mm[Hg] [facility] Diastolic blood pressure 2021-12-21 07:00:00 90 mm[Hg] [facility] Heart rate 2021-12-21 07:00:00 94 /min [facility] Oxygen saturation in Arterial blood by Pulse oximetry 2021-12-21 07:00:00 100 /min [facility] Body temperature 2021-12-21 04:45:00 37.17 Sybil [facility] Respiratory rate 2021-12-21 04:45:00 19 /min [facility] Body height 2021-12-21 04:45:00 157.5 cm [facility] 2021-12-21 04:45:00 67.132 kg [facility] BMI 2021-12-21 04:45:00 27.07 kg/m2 [facility] BP Diastolic 2021-12-19 00:00:00 68 mm[Hg] [facility] Height 2021-12-19 00:00:00 59 [in_i] [facility] BMI (Body Mass Index) 2021-12-19 00:00:00 30.3 kg/m2 [facility] BP Systolic 2021-12-19 00:00:00 98 mm[Hg] [facility] Body Weight 2021-12-19 00:00:00 150 [lb_av] [facility] Systolic blood pressure 2021-11-03 07:31:00 112 mm[Hg] [facility] Diastolic blood pressure 2021-11-03 07:31:00 64 mm[Hg] [facility] Heart rate 2021-11-03 07:31:00 88 /min [facility] Respiratory rate 2021-11-03 07:31:00 16 /min [facility] Oxygen saturation in Arterial blood by Pulse oximetry 2021-11-03 07:31:00 100 /min [facility] Body temperature 2021-11-03 05:48:00 37.5 Sybil [facility] Body height 2021-11-03 05:47:00 149.9 cm [facility] Body weight 2021-11-03 05:47:00 63.504 kg [facility] BMI 2021-11-03 05:47:00 28.28 kg/m2 [facility] BP Diastolic 2021-10-14 00:00:00 58 mm[Hg] [facility] Height 2021-10-14 00:00:00 59 [in_i] [facility] BMI (Body Mass Index) 2021-10-14 00:00:00 27.3 kg/m2 [facility] BP Systolic 2021-10-14 00:00:00 124 mm[Hg] [facility] Body Weight 2021-10-14 00:00:00 135 [lb_av] [facility] Systolic blood pressure 2021-08-24 22:49:00 122 mm[Hg] [facility] Diastolic blood pressure 2021-08-24 22:49:00 82 mm[Hg] [facility] Heart rate 2021-08-24 22:49:00 117 /min [facility] Body temperature 2021-08-24 22:49:00 37.11 Sybil [facility] Respiratory rate 2021-08-24 22:49:00 16 /min [facility] Body height 2021-08-24 22:49:00 149.9 cm [facility] Body weight 2021-08-24 22:49:00 56.246 kg [facility] BMI 2021-08-24 22:49:00 25.04 kg/m2 [facility] Oxygen saturation in Arterial blood by Pulse oximetry 2021-08-24 22:49:00 97 /min [facility] Systolic blood pressure 2021-08-06 20:35:00 124 mm[Hg] [facility] Diastolic blood pressure 2021-08-06 20:35:00 74 mm[Hg] [facility] Heart rate 2021-08-06 20:35:00 91 /min [facility] Body temperature 2021-08-06 20:35:00 36.17 Sybil [facility] Respiratory rate 2021-08-06 20:35:00 18 /min [facility] Body height 2021-08-06 20:35:00 149.9 cm [facility] Body weight 2021-08-06 20:35:00 56.246 kg [facility] BMI 2021-08-06 20:35:00 25.04 kg/m2 [facility] Oxygen saturation in Arterial blood by Pulse oximetry 2021-08-06 20:35:00 99 /min [facility] BP Systolic 2022-06-19 10:36:00 113 mm[Hg] BP Diastolic 2022-06-19 10:36:00 74 mm[Hg] Weight Measured 2022-06-19 10:36:00 152.80 pounds Height Measured 2022-06-19 10:36:00 59.65 inches Body Temperature 2022-06-19 10:36:00 98.40 degrees Heart Rate 2022-06-19 10:36:00 77.00 /min Respiratory Rate 2022-06-19 10:36:00 BP Systolic 2022-02-14 08:48:00 108 mm[Hg] BP Diastolic 2022-02-14 08:48:00 69 mm[Hg] Weight Measured 2022-02-14 08:48:00 146.40 pounds Height Measured 2022-02-14 08:48:00 59.65 inches Body Temperature 2022-02-14 08:48:00 98.60 degrees Heart Rate 2022-02-14 08:48:00 88.00 /min Respiratory Rate 2022-02-14 08:48:00 BP Systolic 2021-10-04 09:39:00 132 mm[Hg] BP Diastolic 2021-10-04 09:39:00 82 mm[Hg] Weight Measured 2021-10-04 09:39:00 133.60 pounds Height Measured 2021-10-04 09:39:00 59.65 inches Body Temperature 2021-10-04 09:39:00 98.10 degrees Heart Rate 2021-10-04 09:39:00 116.00 /min Respiratory Rate 2021-10-04 09:39:00 BP Systolic 2021-07-19 08:36:00 114 mm[Hg] BP Diastolic 2021-07-19 08:36:00 74 mm[Hg] Weight Measured 2021-07-19 08:36:00 121.00 pounds Height Measured 2021-07-19 08:36:00 59.65 inches Body Temperature 2021-07-19 08:36:00 98.30 degrees Heart Rate 2021-07-19 08:36:00 123.00 /min Respiratory Rate 2021-07-19 08:36:00 17.00 /min BP Systolic 2021-07-16 08:36:00 120 mm[Hg] BP Diastolic 2021-07-16 08:36:00 78 mm[Hg] Weight Measured 2021-07-16 08:36:00 121.40 pounds Height Measured 2021-07-16 08:36:00 59.65 inches Body Temperature 2021-07-16 08:36:00 98.30 degrees Heart Rate 2021-07-16 08:36:00 Respiratory Rate 2021-07-16 08:36:00 118.00 /min Weight Measured 2021-04-25 14:08:00 121.20 pounds Height Measured 2021-04-25 14:08:00 59.65 inches Body Temperature 2021-04-25 14:08:00 98.20 degrees Heart Rate 2021-04-25 14:08:00 109.00 /min Respiratory Rate 2021-04-25 14:08:00 BP Systolic 2021-04-25 14:08:00 94 mm[Hg] BP Diastolic 2021-04-25 14:08:00 57 mm[Hg] BP Systolic 2021-04-24 08:34:00 114 mm[Hg] BP Diastolic 2021-04-24 08:34:00 73 mm[Hg] Weight Measured 2021-04-24 08:34:00 119.40 pounds Height Measured 2021-04-24 08:34:00 59.65 inches Body Temperature 2021-04-24 08:34:00 97.90 degrees Heart Rate 2021-04-24 08:34:00 101.00 /min Respiratory Rate 2021-04-24 08:34:00 16.00 /min BP Systolic 2021-02-04 15:08:00 117 mm[Hg] BP Diastolic 2021-02-04 15:08:00 67 mm[Hg] Weight Measured 2021-02-04 15:08:00 116.80 pounds Height Measured 2021-02-04 15:08:00 59.50 inches Body Temperature 2021-02-04 15:08:00 Heart Rate 2021-02-04 15:08:00 Respiratory Rate 2021-02-04 15:08:00 BP Systolic 2021-01-11 14:15:00 112 mm[Hg] BP Diastolic 2021-01-11 14:15:00 72 mm[Hg] Weight Measured 2021-01-11 14:15:00 115.40 pounds Height Measured 2021-01-11 14:15:00 59.50 inches Body Temperature 2021-01-11 14:15:00 98.00 degrees Heart Rate 2021-01-11 14:15:00 113.00 /min Respiratory Rate 2021-01-11 14:15:00 16.00 /min BP Systolic 2020-11-12 15:51:00 131 mm[Hg] BP Diastolic 2020-11-12 15:51:00 79 mm[Hg] Weight Measured 2020-11-12 15:51:00 128.80 pounds Height Measured 2020-11-12 15:51:00 59.50 inches Body Temperature 2020-11-12 15:51:00 98.50 degrees Heart Rate 2020-11-12 15:51:00 120.00 /min Respiratory Rate 2020-11-12 15:51:00 16.00 /min Procedures Procedure Date / Time Performed Performing Clinician Source XR CHEST 1 VW 2023-10-18 17:56:10 Poppy Lydia [facility] CREATINE KINASE 2023-10-18 16:51:00 Lydia Tyler [facility] LIPASE 2023-10-18 16:51:[address] [facility] MAGNESIUM 2023-10-18 16:51:[address] [facility] TEST, SERUM 2023-10-18 16:51:00 Shalom Tyler [facility] TROPONIN I 2023-10-18 16:51:[address] [facility] THYROID STIMULATING HORMONE 2023-10-18 16:51:00 Poppy [facility] COMP. METABOLIC PANEL ([id number]) 2023-10-18 16:51:00 Poppy [facility] CBC WITH DIFF 2023-10-18 16:51:00 Lydia Tyler [facility] RAPID INFLUENZA A/B 2023-10-18 16:48:00 Poppy [facility] COVID-19 (ID NOW RAPID TESTING) 2023-10-18 16:48:00 Poppy [facility] CONSENT/REFUSAL FOR DIAGNOSIS AND TREATMENT 2023-10-18 16:23:40 Doctor Unassigned, [place] [facility] POCT SARS-COV-2 ANTIGEN (BINAX NOW) 2023-09-25 16:59:00 Lorena Soler [facility] POCT MOLECULAR FLU 2023-09-25 16:49:00 Unknown, Attend ing [facility] POCT MOLECULAR STREP 2023-09-25 16:47:00 Unknown, Atte ene [facility] XR FOOT 3+ VW LEFT 2023-09-14 01:12:23 Jossuemaria luisaLang hollandmaryan strong [facility] XR CHEST 1 VW 2023-07-22 17:58:35 Peter Minor [facility] CONSENT/REFUSAL FOR DIAGNOSIS AND TREATMENT 2023-07-22 16:53:37 Doctor Unassigned, [place] [facility] POCT MOLECULAR STREP 2023-07-22 00:24:00 Unknown, Atte ene [facility] POCT SARS-COV-2 ANTIGEN (BINAX NOW) 2023-07-22 00:16:00 Lorena Soler [facility] ASSIGNMENT OF BENEFITS 2023-07-05 20:47:23 Docto r Unassigned, [place] [facility] CT ANGIOGRAM HEAD 2023-05-01 20:35:00 Karissa Fox [facility] CT ANGIOGRAM NECK 2023-05-01 20:35:00 Karissa Fox [facility] CT HEAD WO CONTRAST 2023-05-01 20:34:00 Todd Fox [facility] TROPONIN I 2023-05-01 19:35:00 [facility] FREE T4 2023-05-01 19:35:00 [facility] COMP. METABOLIC PANEL ([id number]) 2023-05-01 19:35:00 Karissa Fox [facility] CBC WITH DIFF 2023-05-01 19:35:00 Karissa Fox [facility] PROTHROMBIN TIME / INR 2023-05-01 19:35:00 Robi Fox [facility] ACTIVATED PARTIAL THRMPLAS HUMERA 2023-05-01 19:35:00 Karissa Fox [facility] URINALYSIS 2023-05-01 19:35:00 Karissa Fox [facility] N-TERMINAL PRO-BNP 2023-05-01 19:35:00 Karissa Fox [facility] URINE DRUG (IMMUNOASSAY) - COMPREHENSIVE DRUG SCREEN W/O REFLEX 2023-05-01 19:35:00 Karissa Fox [facility] POCT TEST 2023-05-01 19:25:00 Todd Fox [facility] CONSENT/REFUSAL FOR DIAGNOSIS AND TREATMENT 2023-05-01 18:47:06 Doctor Unassigned, [place] [facility] POCT TEST 2023-01-31 12:38:00 Nona Dean ra [facility] URINALYSIS 2023-01-31 12:36:00 [facility] PRIV[facility] PRACT[facility] 2023-01-31 12:29:08 Doctor Unassigned, [place] [facility] CONSENT/REFUSAL FOR DIAGNOSIS AND TREATMENT 2023-01-31 12:28:05 Doctor Unassigned, [place] [facility] EKG-12 LEAD 2022-11-02 00:42:13 Mami Shabazz [facility] XR CHEST 1 VW 2022-11-01 22:59:32 Mami Shabazz [facility] LIPASE 2022-11-01 22:27:00 Mami Shabazz [facility] TEST, SERUM 2022-11-01 22:27:00 Beny Shabazz [facility] TROPONIN I 2022-11-01 22:27:00 Mami Shabazz [facility] THYROID STIMULATING HORMONE 2022-11-01 22:27:00 Mami Shabazz [facility] COMP. METABOLIC PANEL ([id number]) 2022-11-01 22:27:00 Mami Shabazz [facility] CBC WITH DIFF 2022-11-01 22:27:00 Mami Shabazz [facility] N-TERMINAL PRO-BNP 2022-11-01 22:27:00 Mami Shabazz [facility] POCT TEST 2022-10-08 06:35:00 Georgie Estrella [facility] XR CHEST 1 VW 2022-10-08 06:34:00 Pawan Estrella [facility] URINALYSIS 2022-10-08 06:21:00 Pawan Estrella [facility] LIPASE 2022-10-08 06:16:00 Pawan Estrella [facility] TROPONIN I 2022-10-08 06:16:00 Pawan Estrella U [facility] FREE T4 2022-10-08 06:16:00 Pawan Estrella [facility] THYROID STIMULATING HORMONE 2022-10-08 06:16:00 Pawan Estrella [facility] COMP. METABOLIC PANEL ([id number]) 2022-10-08 06:16:00 Pawan Estrella [facility] CBC WITH DIFF 2022-10-08 06:16:00 Pawan Estrella [facility] CONSENT/REFUSAL FOR DIAGNOSIS AND TREATMENT 2022-10-08 05:45:45 Doctor Unassigned, [place] [facility] CT ABDOMEN PELVIS W CONTRAST 2022-08-13 17:41:03 Pawan Estrella [facility] POCT TEST 2022-08-13 17:11:00 Georgie Estrella [facility] LIPASE 2022-08-13 17:00:00 Pawan Estrella [facility] MAGNESIUM 2022-08-13 17:00:00 Pawan Estrella [facility] COMP. METABOLIC PANEL ([id number]) 2022-08-13 17:00:00 Pawan Estrella [facility] CBC WITH DIFF 2022-08-13 17:00:00 Pawan Estrella [facility] URINALYSIS 2022-08-13 17:00:00 Pawan Estrella F U [facility] CONSENT/REFUSAL FOR DIAGNOSIS AND TREATMENT 2022-08-13 16:17:17 Doctor Unassigned, [place] [facility] RAPID STREP SCREEN FOR GROUP A 2022-07-15 01:04:00 Randy Beaulieueveline Flower [facility] RAPID INFLUENZA A/B 2022-07-15 01:04:00 Jesusita Beaulieu [facility] COVID-19 (ID NOW RAPID TESTING) 2022-07-15 01:04:00 SalomeusamaRandy chavarriaeveline Crenshaw [facility] CONSENT/REFUSAL FOR DIAGNOSIS AND TREATMENT 2022-07-15 00:41:47 Doctor Unassigned, [place] [facility] URINALYSIS 2021-12-21 05:56:00 Doris Dean [facility] POCT TEST 2021-12-21 05:54:00 Nona Dean ra [facility] MAGNESIUM 2021-12-21 05:06:00 Doris Dean [facility] COMP. METABOLIC PANEL ([id number]) 2021-12-21 05:06:00 Doris Dean [facility] CBC WITH DIFF 2021-12-21 05:06:00 Doris Dean [facility] NOTICE OF PRIVACY PRACTICES 2021-12-21 04:36:43 Doctor Unassigned, [place] [facility] CONSENT/REFUSAL FOR DIAGNOSIS AND TREATMENT 2021-12-21 04:35:34 Doctor Unassigned, [place] [facility] XR CHEST 1 VW 2021-11-03 06:22:30 Nerissa Ely [facility] POCT TEST 2021-11-03 06:19:00 Milady Ely [facility] URINALYSIS 2021-11-03 06:17:00 Nerissa Ely [facility] D-DIMER 2021-11-03 06:16:00 Nerissa Ely [facility] TROPONIN I 2021-11-03 06:03:00 Nerissa Ely [facility] COMP. METABOLIC PANEL ([id number]) 2021-11-03 06:03:00 Nerissa Ely [facility] CBC WITH DIFF 2021-11-03 06:03:00 Nerissa Ely [facility] N-TERMINAL PRO-BNP 2021-11-03 06:03:00 Rosalind Ely [facility] COVID-19 (ID NOW RAPID TESTING) 2021-11-03 06:02:00 Nerissa Ely [facility] CONSENT/REFUSAL FOR DIAGNOSIS AND TREATMENT 2021-11-03 05:41:29 Doctor Unassigned, [place] [facility] CONSENT/REFUSAL FOR DIAGNOSIS AND TREATMENT 2021-08-24 22:45:48 Doctor Unassigned, [place] [facility] Plan of Care Planned Activity Planned Date Details Comments Source Diagnostic Test Pending 2022-12-04 00:00:00 Grapefruit IgE Ab [Units/volume] in Serum [code = 6131-7] [facility] Pending 2022-12-04 00:00:00 Pyridoxine congeners [Mass/volume] in Serum or Plasma [code = 2901-7] [facility] Pending 2022-12-04 00:00:00 Sodium [Moles/volume] in Cerebral spinal fluid [code = 2948-8] [facility] Test Pending 2022-12-04 00:00:00 Hemoglobin G - Deandra [Presence] in Blood by Electrophoresis alkaline (pH 8.9) [code = 4584-9] [facility] Pending 2022-12-04 00:00:00 H Ab [Presence] in Serum [code = 1044-7] [facility] Test Pending 2022-12-04 00:00:00 thyrotropin receptor Ab, serum [code = thyrotropin receptor Ab, serum] [facility] Pending 2022-12-04 00:00:00 TSH + free T4, serum [code = TSH + free T4, serum] [facility] Pending 2022-12-04 00:00:00 T3, total, serum [code = T3, total, serum] [facility] Goal Plan of Care Not e [code = 41699-8] Goal Plan of Care Not e [code = 48773-9] Goal Plan of Care Not e [code = 21882-8] Goal Plan of Care Not e [code = 32438-3] Goal Plan of Care Not e [code = 29135-5] Goal Plan of Care Not e [code = 24828-4] Goal Plan of Care Not e [code = 29905-5] Goal Plan of Care Not e [code = 49969-5] Goal Plan of Care Not e [code = 77821-2] Goal Plan of Care Not e [code = 19613-0] Goal Plan of Care Not e [code = 29659-6] Goal Plan of Care Not e [code = 97740-2] Goal Plan of Care Not e [code = 91463-2] Goal Plan of Care Not e [code = 44583-8] Goal Plan of Care Not e [code = 98163-6] Goal Plan of Care Not e [code = 11915-7] Instructions [facility] Encoun[facility] Start Date/Time End Date/Time Encounter Type Admission Type Attending Clinicians Care Facility Care Department Encounter ID Source 2022-07-17 13:34:02 Outpatient CHW CHW [id number] [facility] 2021-08-19 20:26:01 Emergency [facility] [id number] [facility] ity [facility] 2021-08-18 22:27:08 Emergency [facility] [id number] [facility] 2021-08-18 01:47:18 Emergency [facility] [id number] [facility] 2021-08-17 23:40:45 Emergency [facility] [id number] [facility] 2021-08-17 23:13:41 Emergency [facility] [id number] [facility] 2021-08-16 23:43:08 Emergency [facility] [id number] [facility] 2021-08-16 18:44:42 Emergency [facility] [id number] [facility] 2021-08-16 11:57:07 Emergency [facility] [id number] [facility] 2021-08-15 10:54:31 Emergency [facility] [id number] [facility] 2023-11-13 00:00:00 2023-11-13 00:00:00 Outpatient GC_TEG_Bocc alandro_C PRIV [facility] [id number] [facility] 2023-10-18 10:36:00 2023-10-18 12:26:00 Emergency X LYDIA TYLER [facility] ERT [id number] [facility] 2023-10-18 10:36:00 2023-10-18 12:26:00 Emergency Lydia Tyler [facility] 1.114 350.1.13.10 4.2.7.2.686 [id number] [facility] 2023-10-15 00:00:00 2023-10-15 00:00:00 Outpatient GC_TEG_Bocc alandro_C PRIV PRIV [id number] [facility] 2023-09-25 10:00:00 2023-09-25 10:20:00 Urgent Care Lorena Soler Unknown, Attending [facility] 1.114 350.1.13.10 4.2.7.2.686 [id number] [facility] 2023-09-25 10:00:00 2023-09-25 10:00:00 Outpatient R LORENA SOLER [facility] [id number] [facility] 2023-09-13 18:59:45 2023-09-13 23:59:00 Outpatient R JACKI MONTEIRO [facility] [id number] [facility] 2023-09-13 18:59:45 2023-09-13 23:59:00 Hospital Encounter Jacki Monteiro [facility] 1.114 350.1.13.10 4.2.7.2.686 [id number] [facility] 2023-09-13 18:40:00 2023-09-13 19:19:33 Urgent Care Jacki Monteiro Unknown, Attending [facility] 1.84.114 350.1.13.10 4.2.7.2.686 [id number] [facility] 2023-07-22 12:15:00 2023-07-22 14:32:00 Emergency X PETER MINOR [facility] ERT [id number] [facility] 2023-07-22 12:15:00 2023-07-22 14:32:00 Emergency Peter Minor [facility] 1.0.114 350.1.13.10 4.2.7.2.686 [id number] [facility] 2023-07-21 19:20:00 2023-07-21 19:26:44 Outpatient R PAPO JUANHOLDEN [facility] [id number] [facility] 2023-07-21 19:20:00 2023-07-21 19:26:44 Urgent Care Lorena Soler Unknown, Attending [facility] 1.84.114 350.1.13.10 4.2.7.2.686 [id number] [facility] 2023-07-05 15:40:00 2023-07-05 17:00:55 Outpatient R JACKI MONTEIRO [facility] [id number] [facility] 2023-07-05 15:40:00 2023-07-05 17:00:55 Urgent Care Jacki Monteiro Unknown, Attending [facility] 1.840.114 350.1.13.10 4.2.7.2.686 [id number] [facility] 2023-07-05 00:00:00 2023-07-05 00:00:00 Orders Only Doctor Unassigned, [place] [facility] 1.84.114 350.1.13.10 4.2.7.2.686 [id number] [facility] 2023-06-11 00:00:00 2023-06-11 00:00:00 Outpatient GC_TEG_Bocc alandro_C PRIV PRIV [id number] [facility] 2023-06-11 00:00:00 2023-06-11 00:00:00 Outpatient GC_TEG_Bocc alandro_C PRIV PRIV [id number] [facility] 2023-05-06 15:02:08 2023-05-06 15:02:08 Outpatient SFA SFA [id number] [facility] 2023-05-01 13:58:00 2023-05-01 18:32:00 Emergency X KARISSA FOX [facility] ERT [id number] [facility] 2023-05-01 13:58:00 2023-05-01 18:32:00 Emergency Karissa Fox [facility] 1.2.840.114 350.1.13.10 4.2.7.2.686 [id number] [facility] 2023-04-28 00:00:00 2023-04-28 00:00:00 Outpatient GC_TEG_Bocc alandro_C PRIV PRIV [id number] [facility] 2023-04-27 00:00:00 2023-04-27 00:00:00 Outpatient GC_TEG_Bocc alandro_C PRIV PRIV [id number] [facility] 2023-03-30 15:31:40 2023-03-30 15:31:40 Outpatient SFA SFA [id number] [facility] 2023-03-01 00:00:00 2023-03-01 00:00:00 Outpatient GC_TEG_Bocc alandro_C PRIV PRIV [id number] [facility] 2023-03-01 00:00:00 2023-03-01 00:00:00 Outpatient GC_TEG_Bocc alandro_C PRIV PRIV [id number] [facility] 2023-02-09 14:26:37 2023-02-09 14:26:37 Outpatient S[facility] SFA [id number] [facility] San 2023-02-01 00:00:00 2023-02-01 00:00:00 Outpatient GC_TEG_Bocc alandro_C PRIV PRIV [id number] [facility] 2023-01-31 07:40:00 2023-01-31 08:57:00 Emergency X DIANNE DORIS [facility] ERT [id number] [facility] 2023-01-31 07:40:00 2023-01-31 08:57:00 Emergency DianneNonara Stallings [facility] 1..840.114 350.1.13.10 4.2.7.2.686 [id number] [facility] 2023-01-31 00:00:00 2023-01-31 00:00:00 Orders Only Doctor Unassigned, [place] [facility] 1..840.114 350.1.13.10 4.2.7.2.686 [id number] [facility] 2023-01-09 11:08:41 2023-01-09 11:08:41 Outpatient [facility] [id number] [facility] San 2023-01-04 00:00:00 2023-01-04 00:00:00 Outpatient GC_TEG_Bocc alandro_C PRIV PRIV [id number] [facility] 2022-12-04 00:00:00 2022-12-04 00:00:00 Outpatient GC_TEG_Bocc alandro_C PRIV PRIV [id number] [facility] 2022-12-04 00:00:00 2022-12-04 00:00:00 Keri Bernard MD: [address] [facility], [facility] [address], [place] [address] , Ph. [phone] [facility] - GC_TEG_Fann in Office [id number] [facility] 2022-11-19 13:24:46 2022-11-19 13:24:46 Outpatient [facility] [id number] [facility] 2022-11-01 15:54:00 2022-11-01 18:51:00 Emergency X MAMI SHABAZZ [facility] ERT [id number] [facility] 2022-11-01 15:54:00 2022-11-01 18:51:[address] Shabazz [facility] 1.2.840.114 350.1.13.10 4.2.7.2.686 [id number] [facility] 2022-10-14 10:30:00 2022-10-14 10:30:00 Outpatient JO LAWLER [facility] [id number] [facility] 2022-10-07 23:50:00 2022-10-08 02:56:00 Emergency X PAWAN ESTRELLA [facility] ERT [id number] [facility] 2022-10-07 23:50:00 2022-10-08 02:56:[address]awan Estrella [facility] 1.2.840.114 350.1.13.10 4.2.7.2.686 [id number] [facility] 2022-08-18 00:00:00 2022-08-18 00:00:00 Outpatient GC_TEG_Bocc alandro_C PRIV [facility] [id number] [facility] 2022-08-13 11:30:00 2022-08-13 14:17:00 Emergency X PAWAN ESTRELLA [facility] ERT [id number] [facility] 2022-08-13 11:30:00 2022-08-13 14:17:[address]yna [facility] 1.2.840.114 350.1.13.10 4.2.7.2.686 [id number] [facility] 2022-07-14 20:07:00 2022-07-14 21:01:00 Emergency X JESUSITA BEAULIEU [facility] ERT [id number] [facility] 2022-07-14 20:07:00 2022-07-14 21:01:[address] Beaulieu [facility] 1.2.840.114 350.1.13.10 4.2.7.2.686 [id number] [facility] 2022-07-14 00:00:00 2022-07-14 00:00:00 Orders Only Doctor Unassigned, [place] [facility] 1..840.114 350.1.13.10 4.2.7.2.686 [id number] [facility] 2022-06-23 00:00:00 2022-06-23 00:00:00 Outpatient GC_TEG_Bocc alandro_C [facility] PRIV [id number] [facility] 2022-06-19 00:00:00 2022-06-19 00:00:00 Outpatient Visit [id number] 2022-06-12 00:00:00 2022-06-12 00:00:00 Outpatient GC_TEG_Bocc alandro_C PRIV PRIV [id number] [facility] 2022-06-12 00:00:00 2022-06-12 00:00:00 Outpatient Keri Bernard [facility] PRIV [id number] 2022-06-12 00:00:00 2022-06-12 00:00:00 Keri Bernard MD: [address] [facility], [address], [place] [address] , Ph. [phone] [facility] - BRENNEN_TEG_Joe in Office [id number] [facility] 2022-06-10 00:00:00 2022-06-10 00:00:00 Outpatient GC_TEG_Bocc alandro_C PRIV PRIV [id number] [facility] 2022-04-20 01:17:00 2022-04-20 01:17:00 Outpatient GC_TEG_Bocc alandro_C PRIV PRIV [id number] [facility] 2022-03-23 12:58:00 2022-03-23 12:58:00 Outpatient GC_TEG_Bocc alandro_C PRIV PRIV [id number] [facility] 2022-02-24 01:30:00 2022-02-24 01:30:00 Outpatient GC_TEG_Bocc alandro_C PRIV PRIV [id number] [facility] 2022-02-10 11:16:00 2022-02-10 11:16:00 Outpatient GC_TEG_Bocc alandro_C PRIV PRIV [id number] [facility] 2021-12-20 22:51:00 2021-12-21 01:26:00 Emergency DORIS SCOTT [facility] ERT [id number] [facility] 2021-12-20 22:51:00 2021-12-21 01:26:[address] Dean [facility] 1.2.840.114 350.1.13.10 4.2.7.2.686 [id number] [facility] 2021-12-19 11:30:00 2021-12-19 11:30:00 Outpatient GC_TEG_Bocc alandro_C PRIV PRIV [id number] [facility] 2021-12-19 00:00:00 2021-12-19 00:00:00 Outpatient Keri Bernard PRIV PRIV [id number] 2021-12-19 00:00:00 2021-12-19 00:00:00 Keri Bernard MD: [address] [facility], [facility] [address], [place] [address] , Ph. [phone] [facility] - GC_TEG_Fann in Office [id number] [facility] 2021-12-18 12:25:00 2021-12-18 12:25:00 Outpatient GC_TEG_Bocc alandro_C [facility] [id number] [facility] 2021-11-02 23:53:00 2021-11-03 02:00:00 Emergency X NERISSA ELY [facility] ERT [id number] [facility] 2021-11-02 23:53:00 2021-11-03 02:00:[address] Ely [facility] 1.2.840.114 350.1.13.10 4.2.7.2.686 [id number] [facility] 2021-10-14 09:37:00 2021-10-14 09:37:00 Outpatient GC_TEG_Bocc alandro_C [facility] [id number] [facility] 2021-10-14 00:00:00 2021-10-14 00:00:00 Keri Bernard MD: [address] [place] [address], [facility] [address], [place] [address] , Ph. [phone] [facility] - GC_TEG_Fann in Office [id number] [facility] 2021-10-14 00:00:00 2021-10-14 00:00:00 Outpatient Keri Bernard [facility] [id number] 2021-10-02 01:03:00 2021-10-02 01:03:00 Outpatient GC_TEG_Bocc alandro_C [facility] PRIV [id number] [facility] 2021-08-24 17:53:00 2021-08-24 18:39:00 Emergency X MAMI SHABAZZ [facility] ERT [id number] [facility] 2021-08-24 17:53:00 2021-08-24 18:39:00 Emergency Drever, Mami G [facility] 1.2.840.114 350.1.13.10 4.2.7.2.686 [id number] [facility] 2021-08-06 15:22:10 2021-08-06 17:04:27 Office Visit Elena Noel [facility] 1.2.840.114 350.1.13.10 4.2.7.2.686 [id number] [facility] 2021-08-06 15:30:00 2021-08-06 15:30:00 Outpatient R ELENA NOEL [facility] [id number] [facility] 2021-07-09 15:29:18 2021-07-09 16:17:25 Office Visit Elena Noel [facility] 1.2.840.114 350.1.13.10 4.2.7.2.686 [id number] [facility] 2021-07-09 15:30:00 2021-07-09 15:30:00 Outpatient R ELENA NOEL [facility] [id number] [facility] 2021-07-09 00:00:00 2021-07-09 00:00:00 Letter (Out) Elena Noel [facility] 1.2.840.114 350.1.13.10 4.2.7.2.686 [id number] [facility] 2021-07-01 00:00:00 2021-07-01 00:00:00 Telephone Elena Noel [facility] 1.2.840.114 350.1.13.10 4.2.7.2.686 [id number] [facility] 2021-06-25 00:00:00 2021-06-25 00:00:00 Transition of Care Tasneem Herman 1.2.840.114 350.1.13.10 4.2.7.2.686 [id number] [facility] 2021-06-25 00:00:00 2021-06-25 00:00:00 Telephone Elena Noel [facility] 1.2.840.114 350.1.13.10 4.2.7.2.686 [id number] [facility] 2021-06-22 01:27:00 2021-06-22 19:45:00 Hospital Encounter Hunter Martinez [facility] 1.2.840.114 350.1.13.10 4.2.7.2.686 [id number] [facility] 2021-06-22 10:00:00 2021-06-22 13:31:00 Surgery Tate Zamorano [facility] 1.2.840.114 350.1.13.10 4.2.7.2.686 [id number] [facility] 2021-06-22 00:00:00 2021-06-22 00:00:00 Orders Only Doctor Unassigned, [place] [facility] 1.2.840.114 350.1.13.10 4.2.7.2.686 [id number] [facility] 2021-06-20 17:55:00 2021-06-20 17:55:00 Outpatient R [facility] [id number] [facility] 2021-03-19 14:31:00 2021-03-19 16:24:00 Emergency Veronica Jodi R [facility] 1.2.840.114 350.1.13.10 4.2.7.2.686 [id number] [facility] 2021-02-22 00:35:00 2021-02-22 03:11:00 Emergency Peter Minor [facility] 1.0.114 350.1.13.10 4.2.7.2.686 [id number] [facility] 2021-02-22 00:35:00 2021-02-22 03:11:00 Emergency X PETER MINOR [facility] [id number] [facility] 2021-01-08 00:00:00 2021-01-08 00:00:00 Patient Outreach Kyle Pascual [facility] 1.114 350.1.13.10 4.2.7.2.686 [id number] [facility] 2020-12-24 09:30:00 2020-12-24 09:30:00 Outpatient SRINATH MADISON [facility] [id number] [facility] 2020-12-14 18:28:00 2020-12-14 21:29:00 Emergency Sarah Frost [facility] 1..114 350.1.13.10 4.2.7.2.686 [id number] [facility] 2020-12-10 08:15:00 2020-12-10 08:15:00 Outpatient OTF DIOP [facility] [id number] [facility] 2020-12-03 20:53:00 2020-12-03 22:14:00 Emergency Katie Tran [facility] 1..114 350.1.13.10 4.2.7.2.686 [id number] [facility] 2020-12-03 00:00:00 2020-12-03 00:00:00 Orders Only Doctor Unassigned, [place] [facility] 1.114 350.1.13.10 4.2.7.2.686 [id number] [facility] 2020-11-29 20:13:00 2020-12-02 12:20:00 Hospital Encounter Ruddy, Karissa Strauss, Cinthya Fox, Balaji Cunningham [facility] 1.2.840.114 350.1.13.10 4.2.7.2.686 [id number] [facility] 2020-11-29 00:00:00 2020-11-29 00:00:00 Orders Only Doctor Unassigned, [place] [facility] 1.2840.114 350.1.13.10 4.2.7.2.686 [id number] [facility] 2020-09-25 18:31:00 2020-09-25 20:56:00 Emergency Jodi Salgado [facility] 1.2840.114 350.1.13.10 4.2.7.2.686 [id number] 084 [id number] 2020-09-25 18:31:00 2020-09-25 20:56:00 Emergency X JODI SALGADO [facility] ERT [id number] [facility] 2020-09-25 18:31:00 2020-09-25 20:56:00 Emergency Jodi Salgado [facility] 1.2840.114 350.1.13.10 4.2.7.2.686 [id number] [id number] [facility] 2020-09-25 00:00:00 2020-09-25 00:00:00 Orders Only Doctor Unassigned, [place] [facility] 1.2840.114 350.1.13.10 4.2.7.2.686 [id number] 2020-09-25 00:00:00 2020-09-25 00:00:00 Orders Only Doctor Unassigned, [place] [facility] 1.2840.114 350.1.13.10 4.2.7.2.686 [id number] [facility] 2020-08-22 00:00:00 2020-08-22 00:00:00 Orders Only Doctor Unassigned, [place] [facility] 1.2.840.114 350.1.13.10 4.2.7.2.686 [id number] [id number] 2020-08-22 00:00:00 2020-08-22 00:00:00 Orders Only Doctor Unassigned, [place] [facility] 1.2.840.114 350.1.13.10 4.2.7.2.686 [id number] [facility] 2020-08-06 12:16:00 2020-08-06 14:18:00 Emergency Doris Dean [facility] 1.2.840.114 350.1.13.10 4.2.7.2.686 [id number] 084 [id number] 2020-08-06 12:16:00 2020-08-06 14:18:00 Emergency Doris Dean [facility] 1.2.840.114 350.1.13.10 4.2.7.2.686 [id number] [facility] 2020-07-12 08:30:00 2020-07-12 08:30:00 Outpatient CATHLEEN BAXTER [facility] [id number] [facility] 2020-07-10 09:03:00 2020-07-10 10:00:00 Emergency Peter Minor [facility] 1.2.840.114 350.1.13.10 4.2.7.2.686 [id number] 084 [id number] 2020-07-10 09:03:00 2020-07-10 10:00:00 Emergency Singer [facility] 1.2.840.114 350.1.13.10 4.2.7.2.686 [id number] [facility] 2020-07-10 00:00:00 2020-07-10 00:00:00 Orders Only Doctor Unassigned, [place] [facility] 1.2.840.114 350.1.13.10 4.2.7.2.686 [id number] 2020-07-10 00:00:00 2020-07-10 00:00:00 Orders Only Doctor Unassigned, [place] [facility] 1.2.840.114 350.1.13.10 4.2.7.2.686 [id number] [facility] 2020-05-29 21:53:00 2020-05-29 23:40:00 Emergency [facility] 1.2.840.114 350.1.13.10 4.2.7.2.686 [id number] 2020-05-29 21:53:00 2020-05-29 23:40:00 Emergency [facility] 1.2.840.114 350.1.13.10 4.2.7.2.686 [id number] [facility] 2019-12-13 10:58:13 2019-12-13 11:51:00 Emergency Katie Tran [facility] 1.2.840.114 350.1.13.10 4.2.7.2.686 [id number] 084 [id number] 2019-12-13 10:58:13 2019-12-13 11:51:00 Emergency Katie Tran [facility] 1.2.840.114 350.1.13.10 4.2.7.2.686 [id number] 084 [id number] [facility] 2019-12-13 00:00:00 2019-12-13 00:00:00 Orders Only Doctor Unassigned, [place] [facility] 1.2.840.114 350.1.13.10 4.2.7.2.686 [id number] 2019-12-13 00:00:00 2019-12-13 00:00:00 Orders Only Doctor Unassigned, [place] [facility] 1.2.840.114 350.1.13.10 4.2.7.2.686 [id number] [facility] 2019-12-09 17:21:03 2019-12-09 21:13:00 Emergency Pawan Estrella [facility] 1.2.840.114 350.1.13.10 4.2.7.2.686 [id number] 084 [id number] 2019-12-09 17:21:03 2019-12-09 21:13:00 Emergency X PAWAN ESTRELLA [facility] ERT [id number] [facility] 2019-12-09 17:21:03 2019-12-09 21:13:00 Emergency Pawan Estrella [facility] 1.2.840.114 350.1.13.10 4.2.7.2.686 [id number] [facility] 2019-12-09 00:00:00 2019-12-09 00:00:00 Orders Only Doctor Unassigned, [place] [facility] 1.2.840.114 350.1.13.10 4.2.7.2.686 [id number] 2019-12-09 00:00:00 2019-12-09 00:00:00 Orders Only Doctor Unassigned, [place] [facility] 1.2.840.114 350.1.13.10 4.2.7.2.686 [id number] [facility] 2019-09-08 00:00:00 2019-09-08 23:59:00 Outpatient NORA RAZA [facility] [id number] [facility] 2019-07-28 10:30:00 2019-07-28 11:17:04 Outpatient SRIKANTH SIMPSON [facility] [id number] [facility] 2019-07-05 23:58:00 2019-07-08 14:34:00 [facility] 1.2.840.114 350.1.13.10 4.2.7.2.686 [id number] 2019-07-05 23:58:00 2019-07-08 14:34:00 [facility] 1.2.840.114 350.1.13.10 4.2.7.2.686 [id number] [facility] 2019-07-05 00:00:00 2019-07-05 00:00:00 [facility] 1.2.840.114 350.1.13.10 4.2.7.2.686 [id number] [id number] 2019-07-05 00:00:00 2019-07-05 00:00:00 Nurse Triage [facility] 1.2.840.114 350.1.13.10 4.2.7.2.686 [id number] [facility] 2019-06-29 12:49:05 2019-06-29 13:31:19 Routine Visit Srikanth Quintanilla [facility] 1.2.840.114 350.1.13.10 4.2.7.2.686 [id number] 2019-06-29 12:49:05 2019-06-29 13:31:19 Routine Visit Srikanth Quintanilla [facility] 1.2.840.114 350.1.13.10 4.2.7.2.686 [id number] 107 [id number] [facility] 2019-06-27 00:00:00 2019-06-27 00:00:00 Nurse Triage Tasneem George [facility] 1.2.840.114 350.1.13.10 4.2.7.2.686 [id number] [facility] 2019-06-22 12:50:16 2019-06-22 13:50:23 Routine Visit Srikanth uQintanilla [facility] 1.2.840.114 350.1.13.10 4.2.7.2.686 [id number] 107 [id number] [facility] 2019-06-14 10:09:39 2019-06-14 10:57:54 Routine Visit Srikanth Quintanilla [facility] 1.2.840.114 350.1.13.10 4.2.7.2.686 [id number] 107 [id number] [facility] 2019-06-13 12:03:00 2019-06-13 13:50:00 Hospital Encounter Jeremy Peter [facility] 1.2.840.114 350.1.13.10 4.2.7.2.686 [id number] [facility] 2019-06-11 00:07:00 2019-06-11 03:30:00 Hospital Encounter Shl[facility]red[facility] 1.2.840.114 350.1.13.10 4.2.7.2.686 [id number] [facility] 2019-06-10 00:00:00 2019-06-10 00:00:00 Nurse Triage Mery Luda [facility] 1.2.840.114 350.1.13.10 4.2.7.2.686 [id number] [facility] 2019-06-10 00:00:00 2019-06-10 00:00:00 Orders Only Doctor Unassigned, [place] [facility] 1.2.840.114 350.1.13.10 4.2.7.2.686 [id number] [facility] 2019-05-31 13:52:06 2019-05-31 14:35:09 Routine Visit Srikanth Quintanilla [facility] 1.2.840.114 350.1.13.10 4.2.7.2.686 [id number] 107 [id number] [facility] 2019-05-31 00:00:00 2019-05-31 00:00:00 Telephone Srikanth Quintanilla [facility] 1.2.840.114 350.1.13.10 4.2.7.2.686 [id number] 107 [id number] [facility] 2019-05-30 00:00:00 2019-05-30 00:00:00 Patient Secure Msg Doctor Unassigned, [place] [facility] 1.2.840.114 350.1.13.10 4.2.7.2.686 [id number] [id number] 2019-05-30 00:00:00 2019-05-30 00:00:00 Nurse Triage Tasneem George [facility] 1.2.840.114 350.1.13.10 4.2.7.2.686 [id number] [facility] 2019-05-30 00:00:00 2019-05-30 00:00:00 Patient Secure Msg Doctor Unassigned, [place] [facility] 1.2.840.114 350.1.13.10 4.2.7.2.686 [id number] [facility] 2019-05-24 13:06:39 2019-05-24 13:57:06 Routine Visit Srikanth Quintanilla [facility] 1.2.840.114 350.1.13.10 4.2.7.2.686 [id number] 107 [id number] [facility] 2019-05-19 21:29:00 2019-05-20 00:36:00 Hospital Encounter Rosalio Mccall [facility] 1.2840.114 350.1.13.10 4.2.7.2.686 [id number] [facility] 2019-05-18 00:00:00 2019-05-18 00:00:00 Nurse Triage ArielTasneem [facility] 1.2840.114 350.1.13.10 4.2.7.2.686 [id number] [facility] 2019-05-18 00:00:00 2019-05-18 00:00:00 Patient Secure Msg Doctor Unassigned, [place] [facility] 1.2840.114 350.1.13.10 4.2.7.2.686 [id number] 107 [id number] [facility] 2019-05-08 00:00:00 2019-05-08 00:00:00 Orders Only Doctor Unassigned, [place] [facility] 1.2.840.114 350.1.13.10 4.2.7.2.686 [id number] [facility] 2019-04-27 00:00:00 2019-04-27 00:00:00 Patient Secure Msg Doctor Unassigned, [place] [facility] 1.2.840.114 350.1.13.10 4.2.7.2.686 [id number] [facility] 2019-04-19 00:00:00 2019-04-19 00:00:00 Patient Secure Msg Doctor Unassigned, [place] [facility] 1.2840.114 350.1.13.10 4.2.7.2.686 [id number] [facility] Results Test Description Test Time Test Comments Results Result [facility] [id number] 17:58:00EXAM:XR CHEST 1 VW HISTORY: 23 years-old Female; Indication for study: chest pain COMPARISON: Chestradiograph dated 07/22/2023 TECHNIQUE: Frontal chest radiograph was obtained. FINDINGS: Lungs/Pleura: Adequate lung volume. The lungs are clear with no focalconsolidation. There is no pleural effusionor pneumothorax. Heart/Mediastinum: The cardiomediastinal silhouette is normal. ? Bones and soft tissues: No acute abnormality detected.[facility] TROPONIN [id number] 17:44:10* Test Item Value Reference Range Interpretation Comme nts TROPONIN I (test code = 3342524303) 0.003 ng/mL <=0.034 ANIBAL (test code = ANIBAL) Reference (Normal) Range (defined by the 99th percentile reference [...] to patient's use of biotin. Lab Interpretation (test code = 76249-0) Normal [facility], [id number] 17:38:33* Test Item Value Reference Range Interpretation Comme nts PREG SERUM (test code = 3381537893) Negative ANIBAL (test code = ANIBAL) Less than 10 IU/L. ?If low titer or ectopic is suspected, resubmit specimen in 48-72 hours. [facility]OLIC PAN[facility] ([id number])2023-10-18 17:32:31* Test Item Value Reference Range Interpretation Comme nts NA (test code = 6665095715) 139 mmol/L 135-145 K (test code = 2962456282) 3.5 mmol/L 3.5-5.0 CL (test code = 6696616599) 105 mmol/L 98-108 CO2 TOTAL (test code = 1546357506) 28 mmol/L 23-31 AGAP (test code = 3724284963) 6 2-16 BUN (test code = 6441455244) 14 mg/dL 7-23 GLUCOSE (test code = 5269759762) 98 mg/dL 70-110 CREATININE (test code = 0533796836) 0.82 mg/dL 0.50-1.04 TOTAL BILI (test code = 8146912020) 0.5 mg/dL 0.1-1.1 CALCIUM (test code = 1181905915) 9.1 mg/dL 8.6-10.6 T PROTEIN (test code = 0048199970) 7.2 g/dL 6.3-8.2 ALBUMIN (test code = 6839271849) 4.0 g/dL 3.5-5.0 ALK PHOS (test code = 0678052110) 73 U/L 34-122 ALTv (test code = 1742-6) 16 U/L 5-35 AST(SGOT) (test code = 2311526183) 21 U/L 13-40 eGFR (test code = 74654-7) 101.9 mL/min/1.73m2 CKD-EPI eGFR (20 21). Assuming creatinine has been stable day-to-day for at least three months, the eGFR indicates Category G1 (>= 90 mL/min/1.73 m2) [facility]2023-[facility] 17:32:31* Test Item Value Reference Range Interpretation Comme nts LIPASE (test code = 9227664139) 96 U/L 0-220 Lab Interpretation (test cod e = 47412-4) Normal [facility] HospitalMagnesium2023-12-31 17:32:31* Test Item Value Reference Range Interpretation Comme nts MAGNESIUM (test code = 6312576370) 1.9 mg/dL 1.7-2.4 Lab Interpretation (test cod e = 36977-5) Normal [facility] HospitalCreatine [id number] 17:32:10* Test Item Value Reference Range Interpretation Comme nts CK (test code = 7358261178) 39 U/L 33-194 Lab Interpretation (test cod e = 35118-9) Normal [facility] [facility] [id number] 17:20:30* Test Item Value Reference Range Interpretation Comme nts WBC (test code = 6690-2) 7.13 See_Comment [Automated messa ge] The system which generated this result transmitted reference range: 4.30 - 11.10 10*3/?L. The reference range was not used to interpret this result as normal/abnormal. RBC (test code = 789-8) 4.31 See_Comment [Automated messa ge] The system which generated this result transmitted reference range: 3.93 - 5.25 10*6/?L. The reference range was not used to interpret this result as normal/abnormal. HGB (test code = 718-7) 12.6 g/dL 11.6-15.0 HCT (test code = 4544-3) 38.5 % 35.7-45.2 MCV (test code = 787-2) 89.3 fL 80.6-95.5 MCH (test code = 785-6) 29.2 pg 25.9-32.8 MCHC (test code = 786-4) 32.7 g/dL 31.6-35.1 RDW-SD (test code = 14264-7) 44.3 fL 39.0-49.9 RDW-CV (test code = 788-0) 13.4 % 12.0-15.5 PLT (test code = 777-3) 269 See_Comment [Automated [employer] ge] The system which generated this result transmitted reference range: 166 - 358 10*3/?L. The reference range was not used to interpret this result as normal/abnormal. MPV (test code = 66094-9) 11.0 fL 9.5-12.9 NRBC/100 WBC (test code = 4129138256) 0.0 See_Comment [Automated [employer] ssage] The system which generated this result transmitted reference range: 0.0 - 10.0 /100 WBCs. The reference range was not used to interpret this result as normal/abnormal. NRBC x10^3 (test code = 6910524351) See_Comment [Automated [employer] ge] The system which generated this result transmitted reference range: 10*3/?L. The reference range was not used to interpret this result as normal/abnormal. GRAN MAT (NEUT) % (test code = 770-8) 68.3 % IMM GRAN % (test code = 6134996223) 0.10 % LYMPH % (test code = 736-9) 25.8 % MONO % (test code = 5905-5) 4.5 % EOS % (test code = 713-8) 0.7 % BASO % (test code = 706-2) 0.6 % GRAN MAT x10^3(ANC) (test code = 2120313683) 4.87 10*3/uL 1.88-7.09 IMM GRAN x10^3 (test code = 7717013811) 0.00-0.06 LYMPH x10^3 (test code = 731-0) 1.84 10*3/uL 1.32-3.29 MONO x10^3 (test code = 742-7) 0.32 10*3/uL 0.33-0.92 L EOS x10^3 (test code = 711-2) 0.05 10*3/uL 0.03-0.39 BASO x10^3 (test code = 704-7) 0.04 10*3/uL 0.01-0.07 Lab Interpretation (test code = 21405-5) Abnormal [facility] MOLECULAR [id number] 17:00:50* Test Item Value Reference Range Interpretation Comme nts POCT Molecular FluA (test co de = 90026-7) Negative Negative POCT Molecular FluB (test co de = 02889-0) Negative Negative Lab Interpretation (test cod e = 15793-5) Normal [facility] SARS-COV-2 ANTIGEN (BINAX NOW)2023-09-25 16:59:00* Test Item Value Reference Range Interpretation Comme nts POCT SARS-COV-2 ANTIGEN (domenico t code = 79951-1) Not Detected Not Detected On board controls acceptable with C Line (test code = 3574) Yes Lab Interpretation (test cod e = 74655-6) Normal [facility] MOLECULAR [id number] 16:50:44* Test Item Value Reference Range Interpretation Comme nts POCT Molecular Strep (test c ode = 50052-0) Positive Negative A Lab Interpretation (test cod e = 94058-0) Abnormal [facility] MOLECULAR [id number] 00:32:05* Test Item Value Reference Range Interpretation Comme nts POCT Molecular Strep (test c ode = 86873-1) Negative Negative Lab Interpretation (test cod e = 75849-5) [facility] SARS-[facility]OV-2 ANTIGEN (BINAX NOW)2023-07-22 00:31:00* Test Item Value Reference Range Interpretation Comme nts POCT SARS-COV-2 ANTIGEN (domenico t code = 68779-6) Not Detected Not Detected On board controls acceptable with C Line (test code = 3574) Yes Lab Interpretation (test cod e = 76529-4) Normal [facility] [id number] 20:25:38* Test Item Value Reference Range Interpretation Comme nts FREE T4 (test code = 4213555803) 0.95 See_Comment [Automated [employer] ge] The system which generated this result transmitted reference range: 0.78 - 2.20 ng/dL:. The reference range was not used to interpret this result as normal/abnormal. Lab Interpretation (test code = 20812-9) Normal [facility] [id number] 20:20:01* Test Item Value Reference Range Interpretation Comme nts TROPONIN I (test code = 4136341736) 0.001 ng/mL <=0.034 ANIBAL (test code = ANIBAL) Reference (Normal) Range (defined by the 99th percentile reference [...] to patient's use of biotin. Lab Interpretation (test code = 77969-6) Normal [facility]N-TERMINAL [id number] 20:17:38* Test Item Value Reference Range Interpretation Comme nts NT-proBNP (test code = 84839-0) 32 pg/mL <=125 Lab Interpretation (test cod e = 49763-3) Normal [facility]. METABOLIC PANEL (71522)2023-05-01 20:08:18* Test Item Value Reference Range Interpretation Comme nts NA (test code = 7276453952) 139 mmol/L 135-145 K (test code = 1344767159) 3.8 mmol/L 3.5-5.0 CL (test code = 0623447404) 102 mmol/L 98-108 CO2 TOTAL (test code = 8047725837) 28 mmol/L 23-31 AGAP (test code = 5002175349) 9 2-16 BUN (test code = 3189772127) 10 mg/dL 7-23 GLUCOSE (test code = 3168209359) 81 mg/dL 70-110 CREATININE (test code = 8263412567) 0.59 mg/dL 0.50-1.04 TOTAL BILI (test code = 6849259060) 0.5 mg/dL 0.1-1.1 CALCIUM (test code = 7061310451) 9.1 mg/dL 8.6-10.6 T PROTEIN (test code = 9725904704) 6.9 g/dL 6.3-8.2 ALBUMIN (test code = 9499890440) 4.1 g/dL 3.5-5.0 ALK PHOS (test code = 6994128958) 56 U/L 34-122 ALTv (test code = 1742-6) 16 U/L 5-35 AST(SGOT) (test code = 4931030745) 23 U/L 13-40 eGFR (test code = 5367277371) 125.2 mL/min/1.73m2 ANIBAL (test code = ANIBAL) Association of Glomerular Filtration Rate (GFR) and Staging of Kidney Disease* + + +- +| GFR (mL/min/1.73 m2) ?| With Kidney Damage ?| ?Without Kidney Damage+ ------+ ----+ ------+| ?>90 ?| ?Stage one ?| ? Normal ?+ -+ + -+| ?60-89 ?| ?Stage two ?| ? Decreased GFR ? + + +- +| ?30-59 ?| ?Stage three ?| ? Stage three ? + + +- +| ?15-29 ?| ?Stage four ? | ? Stage four ?+ -+ + -+| ?<15 (or dialysis) ? ?| ?Stage five ? | ? Stage five ?+ -+ + -+ *Each stage assumes the associated GFR level [...] or urine or abnormalities in imaging tests). [facility]ACTIV[facility] PARTIAL THRMPLAS [id number] 20:06:35* Test Item Value Reference Range Interpretation Comme nts APTT Patient (test code = 3173-2) 30 See_Comment [Automated message] The system which generated this result transmitted reference range: 23 - 38 Seconds. The reference range was not used to interpret this result as normal/abnormal. ANIBAL (test code = ANIBAL) The [facility] patient population mean normal value for aPTT is 30 seconds. Lab Interpretation (test code = 58354-0) Normal [facility] HospitalPROTHROMBIN TIME / [id number] 20:04:15* Test Item Value Reference Range Interpretation Comme [facility] PROTIME PATIENT (test code = 5964-2) 13.9 See_Comment [Automated [employer]] The system which generated this result transmitted reference range: 12.0 - 14.7 Seconds. The reference range was not used to interpret this result as normal/abnormal. INR (test code = 6301-6) 1.1 Normal INR <1.1; Warfarin Therapeutic range 2.0 to 3.0 or 2.5 to 3.5, depending upon the indications. Lab Interpretation (test code = 73944-4) Normal [facility] WITH [id number] 19:56:58* Test Item Value Reference Range Interpretation Comme [facility] WBC (test code = 6690-2) 7.45 See_Comment [Automated [employer]] The system which generated this result transmitted reference range: 4.30 - 11.10 10*3/?L. The reference range was not used to interpret this result as normal/abnormal. RBC (test code = 789-8) 4.37 See_Comment [Automated [employer]] The system which generated this result transmitted reference range: 3.93 - 5.25 10*6/?L. The reference range was not used to interpret this result as normal/abnormal. HGB (test code = 718-7) 12.3 g/dL 11.6-15.0 HCT (test code = 4544-3) 37.6 % 35.7-45.2 MCV (test code = 787-2) 86.0 fL 80.6-95.5 MCH (test code = 785-6) 28.1 pg 25.9-32.8 MCHC (test code = 786-4) 32.7 g/dL 31.6-35.1 RDW-SD (test code = 01587-5) 40.9 fL 39.0-49.9 RDW-CV (test code = 788-0) 13.1 % 12.0-15.5 PLT (test code = 777-3) 271 See_Comment [Automated [employer]] The system which generated this result transmitted reference range: 166 - 358 10*3/?L. The reference range was not used to interpret this result as normal/abnormal. MPV (test code = 15723-9) 11.1 fL 9.5-12.9 NRBC/100 WBC (test code = 2620850360) 0.0 See_Comment [Automated me ssage] The system which generated this result transmitted reference range: 0.0 - 10.0 /100 WBCs. The reference range was not used to interpret this result as normal/abnormal. NRBC x10^3 (test code = 2689572234) See_Comment [Automated me ssage] The system which generated this result transmitted reference range: 10*3/?L. The reference range was not used to interpret this result as normal/abnormal. GRAN MAT (NEUT) % (test code = 770-8) 55.6 % IMM GRAN % (test code = 1248927745) 0.00 % LYMPH % (test code = 736-9) 38.1 % MONO % (test code = 5905-5) 4.8 % EOS % (test code = 713-8) 1.1 % BASO % (test code = 706-2) 0.4 % GRAN MAT x10^3(ANC) (test code = 4004579691) 4.14 10*3/uL 1.88-7.09 IMM GRAN x10^3 (test code = 9735695008) 0.00-0.06 LYMPH x10^3 (test code = 731-0) 2.84 10*3/uL 1.32-3.29 MONO x10^3 (test code = 742-7) 0.36 10*3/uL 0.33-0.92 EOS x10^3 (test code = 711-2) 0.08 10*3/uL 0.03-0.39 BASO x10^3 (test code = 704-7) 0.03 10*3/uL 0.01-0.07 [facility]PO[facility] [id number] 19:25:00* Test Item Value Reference Range Interpretation Comme nts POCT PREG (test code = 1605) Negative On board controls acceptable with C Line (test code = 3574) Yes POCT PREG LOT # (test code = 3575) [id number] POCT PREG TEST DATE ( test code = 3576) 07/24/2024 Lab Interpretation (test cod e = 64221-0) Normal [facility] HospitalHPV HIGH IF ABNORMAL [id number] 17:57:05* Test Item Value Reference Range Interpretation Comme nts HPV HIGH IF ABNORMAL THINPREP (test code = 25264) CRITERIA NOT MET [facility] has imp ortant pathology staff changes effective 12/17/2022. New pathology staff will provide uninterrupted, excellent patient care and clinical consultation. See URL: [email or web address]. UNLESS OTHERWISE INDICATED, ALL TESTING PERFORMED AT [facility] [address] [place] [address] EMOTIONALLY IMPAIRED TEACHER: HOLLIE FRANCIS M.D. CLIA NUMBER [id number] [facility] [place]. [id number] PAP TEST, THINPREP, [id number] 17:57:05* Test Item Value Reference Range Interpretation Comme nts SOURCE: (test code = 8001) Cervical/Vagin al SLIDES: (test code = 8011) 2 LMP: (test code = 8021) 01/03/2023 SPECIMEN ADEQUACY: (test code = 54040) (NOTE) Satisfactory for evaluation. Endocervical cells/transformation zone component present. INTERPRETATION: (test code = 58338) NILM/NO EPITH. ABNORMALITY;SE E BELOW ---- NEGATIVE FOR INTRAEPITHELIAL LESION OR MALIGNANCY (NILM) - OTHER COMMENTS: (test code = 8081) (NOTE) Interpreted usin g an alternate method of processing. This testwas developed and its performance characteristics determined by[facility] It has not been cleared orapproved by the FDA. The laboratory is regulated under CLIA asqualified to perform high-complexity testing. This test is usedfor clinical purposes. It should not be regarded asinvestigational or for research. MELT HOUSE SUPERVISOR : (test code = 8101) ABDIAS Laughlin (ASCP) QC TECHNOLOGIST: (test code = 8111) [facility]AL[facility]),[facility] LOCATION: (test code = 72009) (NOTE) Specimens proces sed and interpreted at [facility], [address] [place] [address], , CLIA: [id number] CPT: (test code = 8140) (NOTE) [address] UNLESS OTH ERWISE INDICATED, COMPUTER AIDED AND MELT HOUSE SUPERVISOR SCREENING PERFORMED. The Pap test is a screening test with an inherent, but low probability of error. Your patient should be reminded to consult you immediately if she experiences any suspicious signs or symptoms, regardless of her Pap test result. An alternate report format containing images or consolidated prior Pap history is available as applicable. CULTURE, [id number] 13:22:41SPECIMEN NUMBER: [id number] CULTURE, URINE SPECIMEN NUMBER: [id number] SPECIMEN COMMENT: URINE SOURCE: URINE REPORT STATUS: FINAL FINAL REPORT: 02/11/2023 10-50,000 CFU/ML UROGENITAL YESSI PRESENT NO CO MMON PATHOGENSVAGINAL PATHOGENS DNA [id number] 16:21:49* Test Item Value Reference Range Interpretation Comme nts JOVANY SPECIES (test code = ) NEGATIVE NEGATIVE G. VAGINALIS (test code = ) NEGATIVE NEGATIVE T. VAGINALIS (test code = ) NEGATIVE NEGATIVE Note: The [email or web address] VPIII Microbial Identification Testis a DNA probe test intended for use in the detectionand identification of Jovany species, Gardnerellavaginalis and Trichomonas vaginalis nucleic acid. [facility] has important pathology staff changes effective 12/17/2022. New pathology staff will provide uninterrupted, excellent patient care and clinical consultation. See URL: [email or web address]. UNLESS OTHERWISE INDICATED, ALL TESTING PERFORMED AT [facility] [address] [place] [address] EMOTIONALLY IMPAIRED TEACHER: HOLLIE FRANCIS M.D. CLIA NUMBER [id number] [facility] [place]. [id number] POCT [id number] 12:38:00* Test Item Value Reference Range Interpretation Comme nts POCT PREG (test code = 1605) negative On board controls acceptable with C Line (test code = 3574) present POCT PREG LOT # (test code = 3575) [id number] POCT PREG TEST DATE ( test code = 3576) [id number] Lab Interpretation (test cod e = 50259-6) Normal [facility] HospitalCULT[facility], [id number] 12:51:58SPECIMEN NUMBER: [id number] CULTURE, URINE SPECIMEN NUMBER: [id number] SPECIMEN COMMENT: URINE SOURCE: URINE REPORT STATUS: FINAL FINAL REPORT: 01/11/2023 >100,000 CFU/ML UROGENITAL YESSI PRESENT NOCOMMON PATHOGENSVAGINAL PATHOGENS DNA PANEL 2023-01-10 15:44:49* Test Item Value Reference Range Interpretation Comme nts JOVANY SPECIES (test code = ) NEGATIVE NEGATIVE G. VAGINALIS (test code = ) NEGATIVE NEGATIVE T. VAGINALIS (test code = ) NEGATIVE NEGATIVE Note: The [facility] irm VPIII Microbial Identification Testis a DNA probe test intended for use in the detectionand identification of Jovany species, Gardnerellavaginalis and Trichomonas vaginalis nucleic acid. [facility] has important pathology staff changes effective 12/17/2022. New pathology staff will provide uninterrupted, excellent patient care and clinical consultation. See URL: [email or web address]. UNLESS OTHERWISE INDICATED, ALL TESTING PERFORMED AT [facility] [address] [place] [address] EMOTIONALLY IMPAIRED TEACHER: HOLLIE FRANCIS M.D. CLIA NUMBER [id number] [place]. [id number] THYROID II PROFILE (TU,T4,FTI,TSH)2022-11-20 04:41:48* Test Item Value Reference Range Interpretation Comme nts T-UPTAKE (test code = 2817) 27.2 % 24.3-39.0 THYROX. BIND. CAPAC. (test code = 24206) 1.2 0.8-1.3 T4 (THYROXINE) (test code = 2819) 6.8 UG/DL 4.5-10.5 CORRECTED T4 (FTI) (test code = 2820) 5.7 UG/DL 4.2-11.6 TSH, THIRD GENERATION (test code = 2821) 0.839 UIU/ML 0.400-4.100 UNLESS OTHERWISE INDICATED, ALL TESTING PERFORMED [facility] [address] [place] [address] EMOTIONALLY IMPAIRED TEACHER: NAHED JACOBSON M.D. CLIA NUMBER [id number] [place]. [id number] COMPREHENSIVE METABOLIC [id number] 03:07:49* Test Item Value Reference Range Interpretation Comme nts GLUCOSE (test code = 2217) 81 MG/DL 70-99 BUN (test code = 2208) 14 MG/DL 6-20 CREATININE (test code = 2214) 0.81 MG/DL 0.60-1.30 eGFR (2020 CKD-EPI) (test code = 97660) 104 ML/MIN/1.73 >60 CALC BUN/CREAT (test code = 2235) 17 RATIO 6-28 SODIUM (test code = 2230) 141 MEQ/L 133-146 POTASSIUM (test code = 2227) 4.2 MEQ/L 3.5-5.4 CHLORIDE (test code = 2214) 103 MEQ/L 95-107 CARBON DIOXIDE (test code = 2205) 23 MEQ/L 19-31 CALCIUM (test code = 2208) 9.2 MG/DL 8.5-10.5 PROTEIN, TOTAL (test code = 2228) 7.1 G/DL 6.1-8.3 ALBUMIN (test code = 2200) 4.6 G/DL 3.5-5.2 CALC GLOBULIN (test code = 2239) 2.5 G/DL 1.9-3.7 CALC A/G RATIO (test code = 2233) 1.8 RATIO 1.0-2.6 BILIRUBIN, TOTAL (test code = 2206) 0.2 MG/DL See_Comment [Automated me ssage] The system which generated this result transmitted reference range: <=1.2. The reference range was not used to interpret this result as normal/abnormal. ALKALINE PHOSPHATASE (test code = 2203) 98 U/L 40-115 AST (test code = 2217) 17 U/L 9-40 ALT (test code = 2218) 13 U/L 5-40 HEMOGLOBIN [id number] 01:43:57* Test Item Value Reference Range Interpretation Comme nts HEMOGLOBIN A1c (test code = 95680) 5.3 % 4.2-5.6 CBC W/AUTO DIFF WITH [id number] 01:08:39* Test Item Value Reference Range Interpretation Comme nts WBC (test code = 1001) 8.0 K/UL 3.5-11.0 RBC (test code = 1002) 4.70 M/UL 3.80-5.40 HEMOGLOBIN (test code = 1003) 13.0 G/DL 11.5-15.5 HEMATOCRIT (test code = 1004) 39.5 % 34.0-45.0 MCV (test code = 1005) 84.0 fL 80.0-99.0 MCH (test code = 1006) 27.7 PG 25.0-33.0 MCHC (test code = 1007) 32.9 G/DL 31.0-36.0 RDW (test code = 1038) 13.2 % 11.5-15.0 NEUTROPHILS (test code = 1008) 62.6 % LYMPHOCYTES (test code = 1010) 31.3 % MONOCYTES (test code = 1011) 4.4 % EOSINOPHILS (test code = 1012) 0.8 % BASOPHILS (test code = 1013) 0.8 % IMMATURE GRANULOCYTES (test code = 1036) 0.1 % NUCLEATED RBCS (test code = 1065) 0.0 /100 WBC'S See_Comment [Automated messa ge] The system which generated this result transmitted reference range: 0.0. The reference range was not used to interpret this result as normal/abnormal. PLATELET COUNT (test code = 1015) 328 K/UL 130-400 ABSOLUTE NEUTROPHILS (test code = 1066) 5.01 K/UL 1.50-7.50 ABSOLUTE LYMPHOCYTES (test code = 1067) 2.50 K/UL 1.00-4.00 ABSOLUTE MONOCYTES (test code = 1068) 0.35 K/UL 0.20-1.00 ABSOLUTE EOSINOPHILS (test code = 1040) 0.06 K/UL 0.00-0.50 ABSOLUTE BASOPHILS (test code = 1069) 0.06 K/UL 0.00-0.20 ABS IMMATURE GRANULOCYTES (test code = 1020) 0.01 K/UL 0.00-0.10 ABS NUCLEATED RBCS (test code = 33321) 0.00 K/UL 0.00-0.11 THYROID STIMULATING [id number] 07:10:46* Test Item Value Reference Range Interpretation Comme nts TSH (test code = 2054831592) See_Comment L [Automated messa ge] The system which generated this result transmitted reference range: 0.45 - 4.70 mIU/L. The reference range was not used to interpret this result as normal/abnormal. Lab Interpretation (test code = 20217-0) Abnormal [facility] [id number] 06:57:08* Test Item Value Reference Range Interpretation Comme nts FREE T4 (test code = 0002207228) See_Comment [Automated messa ge] The system which generated this result transmitted reference range: 0.78 - 2.20 ng/dL:. The reference range was not used to interpret this result as normal/abnormal. Lab Interpretation (test code = 00295-7) Normal [facility] [id number] 06:52:03* Test Item Value Reference Range Interpretation Comments TROPONIN I (test code = 2912460751) 0.001 ng/mL See_Comment [Automated message] The system which generated this result transmitted reference range: <=0.034. The reference range was not used to interpret this result as normal/abnormal. ANIBAL (test code = ANIBAL) Reference (Normal) Range (defined by the 99th percentile reference [...] to patient's use of biotin. Lab Interpretation (test code = 75734-8) Normal [facility]. METABOLIC PANEL (50695)2022-10-08 06:40:20* Test Item Value Reference Range Interpretation Comme nts NA (test code = 7531971525) 137 mmol/L 135-145 K (test code = 3099975018) 3.6 mmol/L 3.5-5.0 CL (test code = 7837993302) 102 mmol/L 98-108 CO2 TOTAL (test code = 8240274357) 28 mmol/L 23-31 AGAP (test code = 4045113776) 2-16 BUN (test code = 6854436444) 12 mg/dL 7-23 GLUCOSE (test code = 6372914248) 94 mg/dL 70-110 CREATININE (test code = 3795855888) 0.71 mg/dL 0.50-1.04 TOTAL BILI (test code = 4063154191) 0.3 mg/dL 0.1-1.1 CALCIUM (test code = 4163391317) 8.6 mg/dL 8.6-10.6 T PROTEIN (test code = 5940848022) 6.9 g/dL 6.3-8.2 ALBUMIN (test code = 0036191057) 4.3 g/dL 3.5-5.0 ALK PHOS (test code = 1351171090) 85 U/L 34-122 ALTv (test code = 1742-6) 19 U/L 5-35 AST(SGOT) (test code = 3318690531) 20 U/L 13-40 eGFR (test code = 5005974212) mL/min/1.73m2 ANIBAL (test code = ANIBAL) Association of Glomerular Filtration Rate (GFR) and Staging of Kidney Disease* + + +- +| GFR (mL/min/1.73 m2) ?| With Kidney Damage ?| ?Without Kidney Damage+ ------+ ----+ ------+| ?>90 ?| ?Stage one ?| ? Normal ?+ -+ + -+| ?60-89 ?| ?Stage two ?| ? Decreased GFR ? + + +- +| ?30-59 ?| ?Stage three ?| ? Stage three ? + + +- +| ?15-29 ?| ?Stage four ? | ? Stage four ?+ -+ + -+| ?<15 (or dialysis) ? ?| ?Stage five ? | ? Stage five ?+ -+ + -+ *Each stage assumes the associated GFR level [...] or urine or abnormalities in imaging tests). [facility] HospitalLIPASE2022-12-21 06:39:40* Test Item Value Reference Range Interpretation Comme [facility] LIPASE (test code = 6684651185) 157 U/L 0-220 Lab Interpretation (test cod e = 99387-7) Normal [facility] [id number] 06:35:00* Test Item Value Reference Range Interpretation Comme [facility] POCT PREG (test code = 1605) negative On board controls acceptable with C Line (test code = 3574) present POCT PREG LOT # (test code = 3575) [id number] POCT PREG TEST DATE ( test code = 3576) 01/17/2024 Lab Interpretation (test cod e = 22944-0) Normal [facility] WITH [id number] 06:27:44* Test Item Value Reference Range Interpretation Comme nts WBC (test code = 6690-2) See_Comment [Automated [employer]] The system which generated this result transmitted reference range: 4.30 - 11.10 10*3/?L. The reference range was not used to interpret this result as normal/abnormal. RBC (test code = 789-8) See_Comment [Automated [employer]] The system which generated this result transmitted reference range: 3.93 - 5.25 10*6/?L. The reference range was not used to interpret this result as normal/abnormal. HGB (test code = 718-7) 12.7 g/dL 11.6-15.0 HCT (test code = 4544-3) 39.0 % 35.7-45.2 MCV (test code = 787-2) 84.1 fL 80.6-95.5 MCH (test code = 785-6) 27.4 pg 25.9-32.8 MCHC (test code = 786-4) 32.6 g/dL 31.6-35.1 RDW-SD (test code = 88172-5) 39.1 fL 39.0-49.9 RDW-CV (test code = 788-0) 12.9 % 12.0-15.5 PLT (test code = 777-3) See_Comment [Automated messa ge] The system which generated this result transmitted reference range: 166 - 358 10*3/?L. The reference range was not used to interpret this result as normal/abnormal. MPV (test code = 97040-3) 10.5 fL 9.5-12.9 NRBC/100 WBC (test code = 7138364214) See_Comment [Automated [employer] ssage] The system which generated this result transmitted reference range: 0.0 - 10.0 /100 WBCs. The reference range was not used to interpret this result as normal/abnormal. NRBC x10^3 (test code = 8207399697) See_Comment [Automated me ssage] The system which generated this result transmitted reference range: 10*3/?L. The reference range was not used to interpret this result as normal/abnormal. GRAN MAT (NEUT) % (test code = 770-8) 57.5 % IMM GRAN % (test code = 3237461563) 0.40 % LYMPH % (test code = 736-9) 35.1 % MONO % (test code = 5905-5) 5.0 % EOS % (test code = 713-8) 1.5 % BASO % (test code = 706-2) 0.5 % GRAN MAT x10^3(ANC) (test code = [id number]) 4.92 10*3/uL 1.88-7.09 IMM GRAN x10^3 (test code = [id number]) 0.03 10*3/uL 0.00-0.06 LYMPH x10^3 (test code = 731-0) 3.00 10*3/uL 1.32-3.29 MONO x10^3 (test code = 742-7) 0.43 10*3/uL 0.33-0.92 EOS x10^3 (test code = 711-2) 0.13 10*3/uL 0.03-0.39 BASO x10^3 (test code = 704-7) 0.04 10*3/uL 0.01-0.07 [facility] [id number] 17:11:00* Test Item Value Reference Range Interpretation Comme nts POCT PREG (test code = 1605) negative On board controls acceptable with C Line (test code = 3574) present POCT PREG LOT # (test code = 3575) [id number] POCT PREG TEST DATE ( test code = 3576) 12/17/23 Lab Interpretation (test cod e = 97811-6) Normal [facility], THINPREP, [id number] 14:44:39 * Test Item Value Reference Range Interpretation Comme nts SOURCE: (test code = 8001) Cervical/Vag inal SLIDES: (test code = 8011) 1 LMP: (test code = 8021) 2020 SPECIMEN ADEQUACY: (test code = 98287) (NOTE) Satisfactory for evaluation. Endocervical cells/transformation zone component present. INTERPRETATION: (test code = 07581) LSIL/EPITH. ABNORMALITY; SEE BELOW A -- ---- EPITHELIAL CELL ABNORMALITY Low Grade Squamous Intraepithelial Lesion (LSIL) ---- OTHER COMMENTS: (test code = 8081) (NOTE) Due to technical or specimen issues, imaging could not beperformed. A architectural design lecturer has manually screened this slide. MELT HOUSE SUPERVISOR: (test code = 8101) ABDIAS Ramos(ASCP) PATHOLOGIST INTERPRETATION BY: (test code = 8122) Tony Quigley M.D. LOCATION: (test code = 62171) (NOTE) Specimens proces sed at [facility], [address] [place] [address], , CLIA: [id number] interpreted at [facility], [address] [place] [address], , CLIA:[id number] CPT: (test code = 8140) (NOTE) 35405, 80896, 88 142 UNLESS OTHERWISE INDICATED, COMPUTER AIDED AND MELT HOUSE SUPERVISOR SCREENING PERFORMED. The Pap test is a screening test with an inherent, but low probability of error. Your patient should be reminded to consult you immediately if she experiences any suspicious signs or symptoms, regardless of her Pap test result. An alternate report format containing images or consolidated prior Pap history is available as applicable. HPV HIGH IF ABNORMAL [id number] 14:44:39* Test Item Value Reference Range Interpretation Comme nts HPV HIGH IF ABNORMAL THINPRE P (test code = 00706) SEE BELOW HPV HIGH RISK WITH GENOTYPE, [id number] 14:40:28* Test Item Value Reference Range Interpretation Comme nts HPV HIGH RISK INTERP (test code = 45161) POSITIVE NEGATIVE A HPV 16 (test code = 41891) NEGATIVE HPV 18 (test code = 29628) NEGATIVE HPV, HR, OTHER GENOTYPES (test code = 34102) POSITIVE A Testing methodol ogy is real-time PCR utilizing hydrolysis probes with the [employer] 4800 system. The test individually detects genotypes 16 and 18, as well as the other 12 high risk types (31,33,35,39,45,51,52,56 ,58,59,66,68). The expected result is negative. A negative result does not rule out the presence of HPV not included in the genotype set, a low level of infection or specimen sampling error. UNLESS OTHERWISE INDICATED, ALL TESTING PERFORMED [facility] [employer], [facility]. [address] [place] [address] EMOTIONALLY IMPAIRED TEACHER: NAHED JACOBSON M.D. CLIA NUMBER [id number] [facility] [place]. [id number] PAP TEST, THINPREP, [id number] 00:00:00* Test Item Value Reference Range Interpretation Comme nts SOURCE: (test code = 8001) Cervical/Vaginal SLIDES: (test code = 8011) 1 LMP: (test code = 8021) 2020 SPECIMEN ADEQUACY: (test code = 15941) (NOTE) INTERPRETATION: (test code = 49813) LSIL/EPITH. ABNORMALITY; SEE BELOW OTHER COMMENTS: (test code = 8081) (NOTE) MELT HOUSE SUPERVISOR: (test code = 8101) ABDIAS Ramos(ASCP) PATHOLOGIST INTERPRETATION BY: (test code = 8122) Tony Quigley M.D. LOCATION: (test code = 90718) (NOTE) CPT: (test code = 8140) (NOTE) PAP TEST, THINPREP, [id number] 00:00:00* Test Item Value Reference Range Interpretation Comme nts SOURCE: (test code = 8001) Cervical/Vaginal SLIDES: (test code = 8011) 1 LMP: (test code = 8021) 2020 SPECIMEN ADEQUACY: (test code = 15241) (NOTE) INTERPRETATION: (test code = 92750) LSIL/EPITH. ABNORMALITY; SEE BELOW OTHER COMMENTS: (test code = 8081) (NOTE) MELT HOUSE SUPERVISOR: (test code = 8101) ABDIAS Ramos(ASCP) PATHOLOGIST INTERPRETATION BY: (test code = 8122) Tony Quigley M.D. LOCATION: (test code = 62365) (NOTE) CPT: (test code = 8140) (NOTE) HPV HIGH IF ABNORMAL [id number] 00:00:00* Test Item Value Reference Range Interpretation Comme nts HPV HIGH IF ABNORMAL THINPRE P (test code = 34543) SEE BELOW HPV HIGH IF ABNORMAL [id number] 00:00:00* Test Item Value Reference Range Interpretation Comme nts HPV HIGH IF ABNORMAL THINPRE P (test code = 79436) SEE BELOW HPV HIGH RISK WITH GENOTYPE, TP [REFLEX]2022-06-25 00:00:00* Test Item Value Reference Range Interpretation Comme nts HPV HIGH RISK INTERP (test c ode = 34036) POSITIVE HPV 16 (test code = 55741) NEGATIVE HPV 18 (test code = 30831) NEGATIVE HPV, HR, OTHER GENOTYPES (te st code = 92894) POSITIVE HPV HIGH RISK WITH GENOTYPE, TP [REFLEX]2022-06-25 00:00:00* Test Item Value Reference Range Interpretation Comme nts HPV HIGH RISK INTERP (test c ode = 59489) POSITIVE HPV 16 (test code = 22760) NEGATIVE HPV 18 (test code = 54291) NEGATIVE HPV, HR, OTHER GENOTYPES (te st code = 31340) POSITIVE CT/NG, TMA, [id number] 19:07:10* Test Item Value Reference Range Interpretation Comme nts GONORRHEA, TMA (test code = 44128) NEGATIVE NEGATIVE Assay methodolog y is nucleic acid amplification by microarray specialist mediated amplification (TMA) utilizing the Aptima Combo 2 Assay. CHLAMYDIA, TMA (test code = 93955) NEGATIVE NEGATIVE Assay methodolog y is nucleic acid amplification by microarray specialist mediated amplification (TMA) utilizing the Aptima Combo 2 Assay. VAGINAL PATHOGENS DNA [id number] 15:43:09* Test Item Value Reference Range Interpretation Comme nts JOVANY SPECIES (test code = 47151) POSITIVE NEGATIVE A G. VAGINALIS (test code = 53260) POSITIVE NEGATIVE A T. VAGINALIS (test code = 48872) NEGATIVE NEGATIVE UNLESS OTHERWISE INDICATED, ALL TESTING PERFORMED [facility] [employer] [address] [place] [address] EMOTIONALLY IMPAIRED TEACHER: NAHED JACOBSON M.D. CLIA NUMBER [id number] [facility] [place]. [id number] HIV 1/2 4TH GEN, RFLX [id number] 06:55:46* Test Item Value Reference Range Interpretation Comme nts HIV 1/2 4TH GEN, RFLX CONF ( test code = 3514) NON-REACTIVE NON-REACTIVE [id number] 06:51:55* Test Item Value Reference Range Interpretation Comme nts PROLACTIN (test code = 2800) 17.2 NG/ML 5.0-37.0 NOTE: Methodolog y is Jerman Jayme Electrochemiluminescence Immunoassay (ECLIA). Values obtained with different assays/manufacturers cannot be used interchangeably. Results should not be used as sole basis to establish the presence or absence of malignancy. GC AND CHLAMYDIA AMPLIFIED, [id number] 00:00:00* Test Item Value Reference Range Interpretation Comme nts GONORRHEA, TMA (test code = 23216) NEGATIVE CHLAMYDIA, TMA (test code = 96952) NEGATIVE GC AND CHLAMYDIA AMPLIFIED, [id number] 00:00:00* Test Item Value Reference Range Interpretation Comme nts GONORRHEA, TMA (test code = 24183) NEGATIVE CHLAMYDIA, TMA (test code = 28295) NEGATIVE Free T4 and TSH panel - Serum or [id number] 00:00:00* Test Item Value Reference Range Interpretation Comme nts Thyrotropin [Units/volume] i n Serum or Plasma by Detection limit <= 0.005 mIU/L (test code = 49720-1) <0.005 0.450-4.500 L Thyroxine (T4) free [Mass/vo lume] in Serum or Plasma (test code = 3024-7) 1.55 NG/dL 0.82-1.77 [facility] W Auto Differential panel - [id number] 00:00:00* Test Item Value Reference Range Interpretation Comme nts Leukocytes [#/volume] in Blo od by Automated count (test code = 6690-2) 8.8 x10e3/uL 3.4-10.8 Erythrocytes [#/volume] in Blood by Automated count (test code = 789-8) 4.72 x10e6/uL 3.77-5.28 Hemoglobin [Mass/volume] in Blood (test code = 718-7) 12.5 g/dL 11.1-15.9 Hematocrit [Volume Fraction] of Blood by Automated count (test code = 4544-3) 38.7 % 34.0-46.6 Erythrocyte mean corpuscular volume [Entitic volume] by Automated count (test code = 787-2) 82 fL 79-97 Erythrocyte mean corpuscular hemoglobin [Entitic mass] by Automated count (test code = 785-6) 26.5 pg 26.6-33.0 L Erythrocyte mean corpuscular hemoglobin concentration [Mass/volume] by Automated count (test code = 786-4) 32.3 g/dL 31.5-35.7 Erythrocyte distribution wid th [Ratio] by Automated count (test code = 788-0) 12.7 % 11.7-15.4 Platelets [#/volume] in Bloo d by Automated count (test code = 777-3) 295 x10e3/uL 150-450 Neutrophils/100 leukocytes i n Blood by Automated count (test code = 770-8) 66 % not estab. Lymphocytes/100 leukocytes i n Blood by Automated count (test code = 736-9) 29 % not estab. Monocytes/100 leukocytes in Blood by Automated count (test code = 5905-5) 4 % not estab. Eosinophils/100 leukocytes i n Blood by Automated count (test code = 713-8) 1 % not estab. Basophils/100 leukocytes in Blood by Automated count (test code = 706-2) 0 % not estab. immature cells (test code = immature cells) business test analyst Neutrophils [#/volume] in Bl ood by Automated count (test code = 751-8) 5.7 x10e3/uL 1.4-7.0 Lymphocytes [#/volume] in Bl ood by Automated count (test code = 731-0) 2.6 x10e3/uL 0.7-3.1 Monocytes [#/volume] in Bloo d by Automated count (test code = 742-7) 0.3 x10e3/uL 0.1-0.9 Eosinophils [#/volume] in Bl ood by Automated count (test code = 711-2) 0.1 x10e3/uL 0.0-0.4 Basophils [#/volume] in Bloo d by Automated count (test code = 704-7) 0.0 x10e3/uL 0.0-0.2 Immature granulocytes/100 leukocytes in Blood by Automated count (test code = 41577-7) 0 % not estab. Immature granulocytes [#/volume] in Blood by Automated count (test code = 34769-7) 0.0 x10e3/uL 0.0-0.1 Nucleated erythrocytes/100 leukocytes [Ratio] in Blood by Automated count (test code = 84008-0) business test analyst Morphology [Interpretation] in Blood Narrative (test code = 41507-1) business test analyst [facility] 2000 panel - Serum or [id number] 00:00:00* Test Item Value Reference Range Interpretation Comme nts Glucose [Mass/volume] in Serum or Plasma (test code = 2345-7) 70 mg/dL 65-99 Urea nitrogen [Mass/volume] in Serum or Plasma (test code = 3094-0) 11 mg/dL 6-20 Creatinine [Mass/volume] in Serum or Plasma (test code = 2160-0) 0.53 mg/dL 0.57-1.00 L eGFR (test code = eGFR) 133 mL/min/1.73 >59 Urea nitrogen/Creatinine [Mass Ratio] in Serum or Plasma (test code = 3097-3) 21 9-23 Sodium [Moles/volume] in Serum or Plasma (test code = 2951-2) 138 mmol/L 134-144 Potassium [Moles/volume] in Serum or Plasma (test code = 2823-3) 3.7 mmol/L 3.5-5.2 Chloride [Moles/volume] in Serum or Plasma (test code = 2075-0) 103 mmol/L 96-106 Carbon dioxide, total [Moles/volume] in Serum or Plasma (test code = 8-9) 21 mmol/L 20-29 Calcium [Mass/volume] in Serum or Plasma (test code = 42597-9) 8.9 mg/dL 8.7-10.2 Protein [Mass/volume] in Serum or Plasma (test code = 2885-2) 6.3 g/dL 6.0-8.5 Albumin [Mass/volume] in Serum or Plasma (test code = 1751-7) 4.1 g/dL 3.9-5.0 Globulin [Mass/volume] in Serum by calculation (test code = 81139-5) 2.2 g/dL 1.5-4.5 Albumin/Globulin [Mass Ratio ] in Serum or Plasma (test code = 1759-0) 1.9 1.2-2.2 Bilirubin.total [Mass/volume ] in Serum or Plasma (test code = 1975-2) 0.2 mg/dL 0.0-1.2 Alkaline phosphatase [Enzymatic activity/volume] in Serum or Plasma (test code = 6768-6) 91 IU/L 44-121 Aspartate aminotransferase [Enzymatic activity/volume] in Serum or Plasma (test code = 1920-8) 17 IU/L 0-40 Alanine aminotransferase [Enzymatic activity/volume] in Serum or Plasma (test code = 1742-6) 23 IU/L 0-32 [facility]iodothyronine (T3) [Mass/volume] in Serum or [id number] 00:00:00* Test Item Value Reference Range Interpretation Comme nts Triiodothyronine (T3) [Mass/ volume] in Serum or Plasma (test code = 3053-6) 190 NG/dL 71-180 H [facility] MedicalCT/NG, NAAT, [id number] 10:58:33* Test Item Value Reference Range Interpretation Comme nts GONORRHEA, NAAT (test code = 30658) NEGATIVE NEGATIVE IMPORTANT NO ANTONETTE: SEE ANNOUNCEMENT AT [email or web address] Note: Assay methodology is nucleic acid amplification by microarray specialist mediated amplification (TMA) utilizing the Aptima Combo 2 Assay. CHLAMYDIA, NAAT (test code = 64923) POSITIVE NEGATIVE A IMPORTANT NO ANTONETTE: SEE ANNOUNCEMENT AT [email or web address] Note: Assay methodology is nucleic acid amplification by microarray specialist mediated amplification (TMA) utilizing the Aptima Combo 2 Assay. GC AND CHLAMYDIA, AMPLIFIED, [id number] 00:00:00* Test Item Value Reference Range Interpretation Comme nts GONORRHEA, NAAT (test code = 52988) NEGATIVE CHLAMYDIA, NAAT (test code = 17346) POSITIVE GC AND CHLAMYDIA, AMPLIFIED, [id number] 00:00:00* Test Item Value Reference Range Interpretation Comme nts GONORRHEA, NAAT (test code = 67711) NEGATIVE CHLAMYDIA, NAAT (test code = 75957) POSITIVE VAGINAL PATHOGENS DNA [id number] 13:27:01* Test Item Value Reference Range Interpretation Comme nts JOVANY SPECIES (test code = 23602) POSITIVE NEGATIVE A G. VAGINALIS (test code = 54152) NEGATIVE NEGATIVE T. VAGINALIS (test code = 39404) NEGATIVE NEGATIVE UNLESS OTHERWISE INDICATED, ALL TESTING PERFORMED ATCLINICAL PATHOLOGY [employer] [address] [place] [address] EMOTIONALLY IMPAIRED TEACHER: NAHED JACOBSON M.D. [place] NUMBER [id number] [facility] [place]. [id number] VAGINAL PATHOGENS DNA [id number] 00:00:00* Test Item Value Reference Range Interpretation Comme nts JOVANY SPECIES (test code = 74073) POSITIVE G. VAGINALIS (test code = 14970) NEGATIVE T. VAGINALIS (test code = 57990) NEGATIVE VAGINAL PATHOGENS DNA [id number] 00:00:00* Test Item Value Reference Range Interpretation Comme nts JOVANY SPECIES (test code = 52211) POSITIVE G. VAGINALIS (test code = 79096) NEGATIVE T. VAGINALIS (test code = 18232) NEGATIVE CBC WITH [id number] 06:05:23* Test Item Value Reference Range Interpretation Comme nts WBC (test code = 6690-2) See_Comment H [Automated message] The system which generated this result transmitted reference range: 4.30 - 11.10 10*3/?L. The reference range was not used to interpret this result as normal/abnormal. RBC (test code = 789-8) See_Comment H [Automated message] The system which generated this result transmitted reference range: 3.93 - 5.25 10*6/?L. The reference range was not used to interpret this result as normal/abnormal. HGB (test code = 718-7) 15.6 g/dL 11.6-15.0 H HCT (test code = 4544-3) 47.6 % 35.7-45.2 H MCV (test code = 787-2) 83.4 fL 80.6-95.5 MCH (test code = 785-6) 27.3 pg 25.9-32.8 MCHC (test code = 786-4) 32.8 g/dL 31.6-35.1 RDW-SD (test code = 81330-7) 44.6 fL 39.0-49.9 RDW-CV (test code = 788-0) 14.8 % 12.0-15.5 PLT (test code = 777-3) See_Comment [Automated message] The system which generated this result transmitted reference range: 166 - 358 10*3/?L. The reference range was not used to interpret this result as normal/abnormal. MPV (test code = 39369-0) 10.8 fL 9.5-12.9 NRBC/100 WBC (test code = 2020462866) See_Comment [Automated message] The system which generated this result transmitted reference range: 0.0 - 10.0 /100 WBCs. The reference range was not used to interpret this result as normal/abnormal. NRBC x10^3 (test code = 7111332831) <0.01 See_Comment [Automated message] The system which generated this result transmitted reference range: 10*3/?L. The reference range was not used to interpret this result as normal/abnormal. GRAN MAT (NEUT) % (test code = 770-8) 83.7 % IMM GRAN % (test code = 0668236991) 0.50 % LYMPH % (test code = 736-9) 10.9 % MONO % (test code = 5905-5) 4.1 % EOS % (test code = 713-8) 0.5 % BASO % (test code = 706-2) 0.3 % GRAN MAT x10^3(ANC) (test code = 8741815487) 15.99 10*3/uL 1.88-7.09 H IMM GRAN x10^3 (test code = 2181568243) 0.10 10*3/uL 0.00-0.06 H LYMPH x10^3 (test code = 731-0) 2.08 10*3/uL 1.32-3.29 MONO x10^3 (test code = 742-7) 0.78 10*3/uL 0.33-0.92 EOS x10^3 (test code = 711-2) 0.09 10*3/uL 0.03-0.39 BASO x10^3 (test code = 704-7) 0.06 10*3/uL 0.01-0.07 BANDS (test code = 1153564306) Increased A Lab Interpretation (test code = 81833-3) [facility] [id number] 05:54:00* Test Item Value Reference Range Interpretation Comme nts POCT PREG (test code = 1605) negative Lab Interpretation (test cod e = 78525-7) Normal [facility]. METABOLIC PANEL (47521)2021-12-21 05:45:23* Test Item Value Reference Range Interpretation Comme nts NA (test code = 9663646321) 139 mmol/L 135-145 K (test code = 5192430396) 4.1 mmol/L 3.5-5.0 CL (test code = 1023605301) 103 mmol/L 98-108 CO2 TOTAL (test code = 8276462027) 22 mmol/L 23-31 L AGAP (test code = 0383521795) 2-16 BUN (test code = 3016224270) 18 mg/dL 7-23 GLUCOSE (test code = 2528279226) 116 mg/dL 70-110 H CREATININE (test code = 3107257496) 0.79 mg/dL 0.50-1.04 TOTAL BILI (test code = 2026368123) 0.5 mg/dL 0.1-1.1 CALCIUM (test code = 0287416124) 9.3 mg/dL 8.6-10.6 T PROTEIN (test code = 4365464054) 8.3 g/dL 6.3-8.2 H ALBUMIN (test code = 7485303783) 5.3 g/dL 3.5-5.0 H ALK PHOS (test code = 6410616911) 156 U/L 34-122 H ALTv (test code = 1742-6) 27 U/L 5-35 AST(SGOT) (test code = 5542840616) 36 U/L 13-40 eGFR (test code = 0917698919) mL/min/1.73m2 ANIBAL (test code = ANIBAL) Association of [...] or abnormalities in imaging tests). Lab Interpretation (test code = 27185-5) [facility]normal [facility] 05:45:23* Test Item Value Reference Range Interpretation Comme nts MAGNESIUM (test code = 6079984225) 1.9 mg/dL 1.7-2.4 Lab Interpretation (test cod e = 63488-3) Normal [facility] 2000 [facility] - Serum or [id number] 00:00:00* Test Item Value Reference Range Interpretation Comme nts Glucose [Mass/volume] in Serum or Plasma (test code = 2345-7) 90 mg/dL 65-99 Urea nitrogen [Mass/volume] in Serum or Plasma (test code = 3094-0) 9 mg/dL 6-20 Creatinine [Mass/volume] in Serum or Plasma (test code = 2160-0) 0.71 mg/dL 0.57-1.00 Glomerular filtration rate/1.73 sq M.predicted among non-blacks [Volume Rate/Area] in Serum, Plasma or Blood by Creatinine-based formula (CKD-EPI) (test code = 38127-7) 120 mL/min/1.73 >59 Glomerular filtration rate/1.73 sq M.predicted among blacks [Volume Rate/Area] in Serum, Plasma or Blood by Creatinine-based formula (CKD-EPI) (test code = 22382-0) 139 mL/min/1.73 >59 Urea nitrogen/Creatinine [Mass Ratio] in Serum or Plasma (test code = 3097-3) 13 9-23 Sodium [Moles/volume] in Serum or Plasma (test code = 2951-2) 141 mmol/L 134-144 Potassium [Moles/volume] in Serum or Plasma (test code = 2823-3) 4.1 mmol/L 3.5-5.2 Chloride [Moles/volume] in Serum or Plasma (test code = 2074-0) 104 mmol/L 96-106 Carbon dioxide, total [Moles/volume] in Serum or Plasma (test code = 2027-) 21 mmol/L 20-29 Calcium [Mass/volume] in Serum or Plasma (test code = 24544-1) 9.2 mg/dL 8.7-10.2 Protein [Mass/volume] in Serum or Plasma (test code = 2885-2) 6.8 g/dL 6.0-8.5 Albumin [Mass/volume] in Serum or Plasma (test code = 1751-7) 4.5 g/dL 3.9-5.0 Globulin [Mass/volume] in Serum by calculation (test code = 78483-9) 2.3 g/dL 1.5-4.5 Albumin/Globulin [Mass Ratio ] in Serum or Plasma (test code = 1759-0) 2.0 1.2-2.2 Bilirubin.total [Mass/volume ] in Serum or Plasma (test code = 1974-) 0.2 mg/dL 0.0-1.2 Alkaline phosphatase [Enzymatic activity/volume] in Serum or Plasma (test code = 6768-6) 160 IU/L 44-121 H Aspartate aminotransferase [Enzymatic activity/volume] in Serum or Plasma (test code = 1920-8) 14 IU/L 0-40 Alanine aminotransferase [Enzymatic activity/volume] in Serum or Plasma (test code = 1742-6) 19 IU/L 0-32 [facility]iodothyronine (T3) [Mass/volume] in Serum or [id number] 00:00:00* Test Item Value Reference Range Interpretation Comme nts Triiodothyronine (T3) [Mass/ volume] in Serum or Plasma (test code = 3053-6) 104 NG/dL 71-180 [facility] T4 and TSH panel - Serum or [id number] 00:00:00* Test Item Value Reference Range Interpretation Comme nts Thyrotropin [Units/volume] i n Serum or Plasma by Detection limit <= 0.005 mIU/L (test code = 61703-8) <0.005 0.450-4.500 L Thyroxine (T4) free [Mass/vo lume] in Serum or Plasma (test code = 3024-7) 0.79 NG/dL 0.82-1.77 L [facility]CBC W Auto Differential panel - [id number] 00:00:00* Test Item Value Reference Range Interpretation Comme nts Leukocytes [#/volume] in Blo od by Automated count (test code = 6690-2) 7.5 x10e3/uL 3.4-10.8 Erythrocytes [#/volume] in Blood by Automated count (test code = 789-8) 4.73 x10e6/uL 3.77-5.28 Hemoglobin [Mass/volume] in Blood (test code = 718-7) 13.1 g/dL 11.1-15.9 Hematocrit [Volume Fraction] of Blood by Automated count (test code = 4544-3) 39.0 % 34.0-46.6 Erythrocyte mean corpuscular volume [Entitic volume] by Automated count (test code = 787-2) 83 fL 79-97 Erythrocyte mean corpuscular hemoglobin [Entitic mass] by Automated count (test code = 785-6) 27.7 pg 26.6-33.0 Erythrocyte mean corpuscular hemoglobin concentration [Mass/volume] by Automated count (test code = 786-4) 33.6 g/dL 31.5-35.7 Erythrocyte distribution wid th [Ratio] by Automated count (test code = 788-0) 13.8 % 11.7-15.4 Platelets [#/volume] in Bloo d by Automated count (test code = 777-3) 293 x10e3/uL 150-450 Neutrophils/100 leukocytes i n Blood by Automated count (test code = 770-8) 52 % not estab. Lymphocytes/100 leukocytes i n Blood by Automated count (test code = 736-9) 41 % not estab. Monocytes/100 leukocytes in Blood by Automated count (test code = 5905-5) 4 % not estab. Eosinophils/100 leukocytes i n Blood by Automated count (test code = 713-8) 2 % not estab. Basophils/100 leukocytes in Blood by Automated count (test code = 706-2) 1 % not estab. immature cells (test code = immature cells) business test analyst Neutrophils [#/volume] in Bl ood by Automated count (test code = 751-8) 4.0 x10e3/uL 1.4-7.0 Lymphocytes [#/volume] in Bl ood by Automated count (test code = 731-0) 3.1 x10e3/uL 0.7-3.1 Monocytes [#/volume] in Bloo d by Automated count (test code = 742-7) 0.3 x10e3/uL 0.1-0.9 Eosinophils [#/volume] in Bl ood by Automated count (test code = 711-2) 0.1 x10e3/uL 0.0-0.4 Basophils [#/volume] in Bloo d by Automated count (test code = 704-7) 0.1 x10e3/uL 0.0-0.2 Immature granulocytes/100 leukocytes in Blood by Automated count (test code = 60407-2) 0 % not estab. Immature granulocytes [#/volume] in Blood by Automated count (test code = 22754-7) 0.0 x10e3/uL 0.0-0.1 Nucleated erythrocytes/100 leukocytes [Ratio] in Blood by Automated count (test code = 81784-9) business test analyst Morphology [Interpretation] in Blood Narrative (test code = 19857-3) business test analyst Jonh WallN [id number] 06:47:56* Test Item Value Reference Range Interpretation Comments TROPONIN I (test code = 1455000881) 0.000 ng/mL See_Comment [Automated message] The system which generated this result transmitted reference range: <=0.034. The reference range was not used to interpret this result as normal/abnormal. ANIBAL (test code = ANIBAL) Reference (Normal) Range (defined by the 99th percentile reference [...] to patient's use of biotin. Lab Interpretation (test code = 66771-4) Normal [facility] [id number] 06:44:35* Test Item Value Reference Range Interpretation Comme nts NT-proBNP (test code = 5947728153) 102 pg/mL See_Comment [Automated message] The system which generated this result transmitted reference range: <=125. The reference range was not used to interpret this result as normal/abnormal. ANIBAL (test code = ANIBAL) Biotin has been reported to cause a negative bias, interpret results relative to patient's use of biotin. Lab Interpretation (test code = 07756-4) Normal [facility] MET[facility]OLIC PANEL ([id number])2021-11-03 06:35:53* Test Item Value Reference Range Interpretation Comme nts NA (test code = 6098590971) 138 mmol/L 135-145 K (test code = 8300278910) 3.6 mmol/L 3.5-5.0 CL (test code = 5368623558) 107 mmol/L 98-108 CO2 TOTAL (test code = 7333959675) 23 mmol/L 23-31 AGAP (test code = 4848745850) 2-16 BUN (test code = 0489834784) 12 mg/dL 7-23 GLUCOSE (test code = 9303746976) 88 mg/dL 70-110 CREATININE (test code = 7792369840) 0.50 mg/dL 0.50-1.04 TOTAL BILI (test code = 1469969865) 0.3 mg/dL 0.1-1.1 CALCIUM (test code = 5854244592) 9.1 mg/dL 8.6-10.6 T PROTEIN (test code = 2281542794) 6.6 g/dL 6.3-8.2 ALBUMIN (test code = 6975219554) 4.0 g/dL 3.5-5.0 ALK PHOS (test code = 2710875780) 146 U/L 34-122 H ALTv (test code = 1742-6) 29 U/L 5-35 AST(SGOT) (test code = 5638403753) 26 U/L 13-40 eGFR (test code = 6897386075) mL/min/1.73m2 ANIBAL (test code = ANIBAL) Association of [...] or abnormalities in imaging tests). Lab Interpretation (test code = 62578-3) [facility] 06:33:52* Test Item Value Reference Range Interpretation Comments D-DIMER (test code = 3270495665) See_Comment H [Automated message] The system which generated this result transmitted reference range: <0.41 ?g/mL (FEU). The reference range was not used to interpret this result as normal/abnormal. ANIBAL (test code = ANIBAL) This test may be used in conjunction with a clinical pretest [...] context, in forming a diagnosis. Lab Interpretation (test code = 74190-4) [facility] GUCP6933-11-80 06:20:53* Test Item Value Reference Range Interpretation Comme nts WBC (test code = 6690-2) See_Comment H [Automated [employer]] The system which generated this result transmitted reference range: 4.30 - 11.10 10*3/?L. The reference range was not used to interpret this result as normal/abnormal. RBC (test code = 789-8) See_Comment [Automated [employer]] The system which generated this result transmitted reference range: 3.93 - 5.25 10*6/?L. The reference range was not used to interpret this result as normal/abnormal. HGB (test code = 718-7) 13.0 g/dL 11.6-15.0 HCT (test code = 4544-3) 39.5 % 35.7-45.2 MCV (test code = 787-2) 80.4 fL 80.6-95.5 L MCH (test code = 785-6) 26.5 pg 25.9-32.8 MCHC (test code = 786-4) 32.9 g/dL 31.6-35.1 RDW-SD (test code = 11803-8) 37.9 fL 39.0-49.9 L RDW-CV (test code = 788-0) 13.0 % 12.0-15.5 PLT (test code = 777-3) See_Comment [Automated messa ge] The system which generated this result transmitted reference range: 166 - 358 10*3/?L. The reference range was not used to interpret this result as normal/abnormal. MPV (test code = 06620-9) 10.6 fL 9.5-12.9 NRBC/100 WBC (test code = 5827327466) See_Comment [Automated [employer] ssage] The system which generated this result transmitted reference range: 0.0 - 10.0 /100 WBCs. The reference range was not used to interpret this result as normal/abnormal. NRBC x10^3 (test code = 7866524424) <0.01 See_Comment [Automated messa ge] The system which generated this result transmitted reference range: 10*3/?L. The reference range was not used to interpret this result as normal/abnormal. GRAN MAT (NEUT) % (test code = 770-8) 61.2 % IMM GRAN % (test code = 7760350546) 0.30 % LYMPH % (test code = 736-9) 31.0 % MONO % (test code = 5905-5) 5.4 % EOS % (test code = 713-8) 1.7 % BASO % (test code = 706-2) 0.4 % GRAN MAT x10^3(ANC) (test code = 7769674118) 6.99 10*3/uL 1.88-7.09 IMM GRAN x10^3 (test code = 7833306289) 0.03 10*3/uL 0.00-0.06 LYMPH x10^3 (test code = 731-0) 3.54 10*3/uL 1.32-3.29 H MONO x10^3 (test code = 742-7) 0.62 10*3/uL 0.33-0.92 EOS x10^3 (test code = 711-2) 0.19 10*3/uL 0.03-0.39 BASO x10^3 (test code = 704-7) 0.04 10*3/uL 0.01-0.07 Lab Interpretation (test code = 38595-2) [facility] PQGY4647-10-00 06:19:00* Test Item Value Reference Range Interpretation Comme nts POCT PREG (test code = 1605) negative On board controls acceptable with C Line (test code = 3574) present POCT PREG LOT # (test code = 3575) [id number] POCT PREG TEST DATE ( test code = 3576) 2022-12-16 Lab Interpretation (test cod e = 38369-9) Normal [facility] T4 and TSH panel - Serum or Plasma 2021-10-15 00:00:00* Test Item Value Reference Range Interpretation Comme nts Thyrotropin [Units/volume] i n Serum or Plasma by Detection limit <= 0.005 mIU/L (test code = 49720-8) <0.005 0.450-4.500 L Thyroxine (T4) free [Mass/vo lume] in Serum or Plasma (test code = 3024-7) 3.58 NG/dL 0.82-1.77 H [facility] metabolic 2000 panel - Serum or Fzlrho1449-05-88 00:00:00* Test Item Value Reference Range Interpretation Comme nts Glucose [Mass/volume] in Serum or Plasma (test code = 2345-7) 92 mg/dL 65-99 Urea nitrogen [Mass/volume] in Serum or Plasma (test code = 3094-0) 11 mg/dL 6-20 Creatinine [Mass/volume] in Serum or Plasma (test code = 2160-0) 0.51 mg/dL 0.57-1.00 L Glomerular filtration rate/1.73 sq M.predicted among non-blacks [Volume Rate/Area] in Serum, Plasma or Blood by Creatinine-based formula (CKD-EPI) (test code = 31699-3) 136 mL/min/1.73 >59 Glomerular filtration rate/1.73 sq M.predicted among blacks [Volume Rate/Area] in Serum, Plasma or Blood by Creatinine-based formula (CKD-EPI) (test code = 51189-7) 157 mL/min/1.73 >59 Urea nitrogen/Creatinine [Mass Ratio] in Serum or Plasma (test code = 3097-3) 22 9-23 Sodium [Moles/volume] in Serum or Plasma (test code = 2951-2) 139 mmol/L 134-144 Potassium [Moles/volume] in Serum or Plasma (test code = 2823-3) 4.4 mmol/L 3.5-5.2 Chloride [Moles/volume] in Serum or Plasma (test code = 5-0) 105 mmol/L 96-106 Carbon dioxide, total [Moles/volume] in Serum or Plasma (test code = 2027-9) 21 mmol/L 20-29 Calcium [Mass/volume] in Serum or Plasma (test code = 71484-3) 10.0 mg/dL 8.7-10.2 Protein [Mass/volume] in Serum or Plasma (test code = 2885-2) 6.8 g/dL 6.0-8.5 Albumin [Mass/volume] in Serum or Plasma (test code = 1751-7) 4.3 g/dL 3.9-5.0 Globulin [Mass/volume] in Serum by calculation (test code = 06899-4) 2.5 g/dL 1.5-4.5 Albumin/Globulin [Mass Ratio ] in Serum or Plasma (test code = 1759-0) 1.7 1.2-2.2 Bilirubin.total [Mass/volume ] in Serum or Plasma (test code = 1974-2) 0.4 mg/dL 0.0-1.2 Alkaline phosphatase [Enzymatic activity/volume] in Serum or Plasma (test code = 6768-6) 156 IU/L 44-121 H Aspartate aminotransferase [Enzymatic activity/volume] in Serum or Plasma (test code = 1920-8) 17 IU/L 0-40 Alanine aminotransferase [Enzymatic activity/volume] in Serum or Plasma (test code = 1742-6) 26 IU/L 0-32 [facility]iodothyronine (T3) [Mass/volume] in Serum or Vyiyna5233-17-97 00:00:00* Test Item Value Reference Range Interpretation Comme nts Triiodothyronine (T3) [Mass/ volume] in Serum or Plasma (test code = 3053-6) 407 NG/dL 71-180 H [facility] Auto Differential panel - Tappg5915-13-55 00:00:00* Test Item Value Reference Range Interpretation Comme nts Leukocytes [#/volume] in Blo od by Automated count (test code = 6690-2) 6.4 x10e3/uL 3.4-10.8 Erythrocytes [#/volume] in Blood by Automated count (test code = 789-8) 5.20 x10e6/uL 3.77-5.28 Hemoglobin [Mass/volume] in Blood (test code = 718-7) 13.2 g/dL 11.1-15.9 Hematocrit [Volume Fraction] of Blood by Automated count (test code = 4544-3) 41.2 % 34.0-46.6 Erythrocyte mean corpuscular volume [Entitic volume] by Automated count (test code = 787-2) 79 fL 79-97 Erythrocyte mean corpuscular hemoglobin [Entitic mass] by Automated count (test code = 785-6) 25.4 pg 26.6-33.0 L Erythrocyte mean corpuscular hemoglobin concentration [Mass/volume] by Automated count (test code = 786-4) 32.0 g/dL 31.5-35.7 Erythrocyte distribution wid th [Ratio] by Automated count (test code = 788-0) 13.3 % 11.7-15.4 Platelets [#/volume] in Bloo d by Automated count (test code = 777-3) 284 x10e3/uL 150-450 Neutrophils/100 leukocytes i n Blood by Automated count (test code = 770-8) 50 % not estab. Lymphocytes/100 leukocytes i n Blood by Automated count (test code = 736-9) 40 % not estab. Monocytes/100 leukocytes in Blood by Automated count (test code = 5905-5) 7 % not estab. Eosinophils/100 leukocytes i n Blood by Automated count (test code = 713-8) 2 % not estab. Basophils/100 leukocytes in Blood by Automated count (test code = 706-2) 1 % not estab. immature cells (test code = immature cells) business test analyst Neutrophils [#/volume] in Bl ood by Automated count (test code = 751-8) 3.3 x10e3/uL 1.4-7.0 Lymphocytes [#/volume] in Bl ood by Automated count (test code = 731-0) 2.6 x10e3/uL 0.7-3.1 Monocytes [#/volume] in Bloo d by Automated count (test code = 742-7) 0.4 x10e3/uL 0.1-0.9 Eosinophils [#/volume] in Bl ood by Automated count (test code = 711-2) 0.1 x10e3/uL 0.0-0.4 Basophils [#/volume] in Bloo d by Automated count (test code = 704-7) 0.0 x10e3/uL 0.0-0.2 Immature granulocytes/100 leukocytes in Blood by Automated count (test code = 90103-8) 0 % not estab. Immature granulocytes [#/volume] in Blood by Automated count (test code = 57037-6) 0.0 x10e3/uL 0.0-0.1 Nucleated erythrocytes/100 leukocytes [Ratio] in Blood by Automated count (test code = 60899-1) business test analyst Morphology [Interpretation] in Blood Narrative (test code = 71311-9) business test analyst [facility] MedicalCHLAMYDIA, AMPLIFIED, [id number] 00:00:00* Test Item Value Reference Range Interpretation Comme nts CHLAMYDIA, NAAT (test code = 46848) NEGATIVE CHLAMYDIA, AMPLIFIED, [id number] 00:00:00* Test Item Value Reference Range Interpretation Comme nts CHLAMYDIA, NAAT (test code = 35169) NEGATIVE GC, AMPLIFIED, [id number] 00:00:00* Test Item Value Reference Range Interpretation Comme nts GONORRHEA, NAAT (test code = 18403) NEGATIVE GC, AMPLIFIED, [id number] 00:00:00* Test Item Value Reference Range Interpretation Comme nts GONORRHEA, NAAT (test code = 09023) NEGATIVE HIV AB/AG COMBO RFLX [id number] 00:00:00* Test Item Value Reference Range Interpretation Comme nts HIV 1/2 4TH GEN, RFLX CONF ( test code = 3514) NON-REACTIVE VAGINAL PATHOGENS DNA [id number] 00:00:00* Test Item Value Reference Range Interpretation Comme nts JOVANY SPECIES (test code = ) NEGATIVE G. VAGINALIS (test code = 93479) POSITIVE T. VAGINALIS (test code = 38604) NEGATIVE VAGINAL PATHOGENS DNA [id number] 00:00:00* Test Item Value Reference Range Interpretation Comme nts JOVANY SPECIES (test code = ) NEGATIVE G. VAGINALIS (test code = ) POSITIVE T. VAGINALIS (test code = ) NEGATIVE HIV AB/AG COMBO RFLX [id number] 00:00:00* Test Item Value Reference Range Interpretation Comme nts HIV 1/2 4TH GEN, RFLX CONF ( test code = 3514) NON-REACTIVE UNLABELLED SPECIMEN [ADDED]2021-07-20 00:00:00* Test Item Value Reference Range Interpretation Comme nts NOTE: (test code = 68687) ACUTE HEPATITIS [id number] 00:00:00* Test Item Value Reference Range Interpretation Comme nts HEPATITIS A IgM (test code = 19648) NON-REACTIVE HEPATITIS B CORE IgM (test c ode = 4644) NON-REACTIVE HEPATITIS B SURF AG (test co de = 2739) NON-REACTIVE HEPATITIS C ANTIBODY (test c ode = 4675) NON-REACTIVE INTERPRETATION HEPATITIS A: (test code = 2552) (NOTE) INTERPRETATION HEPATITIS B: (test code = 86056) (NOTE) INTERPRETATION HEPATITIS C: (test code = 71515) (NOTE) ACUTE HEPATITIS [id number] 00:00:00* Test Item Value Reference Range Interpretation Comme nts HEPATITIS A IgM (test code = 72303) NON-REACTIVE HEPATITIS B CORE IgM (test c ode = 4644) NON-REACTIVE HEPATITIS B SURF AG (test co de = 2739) NON-REACTIVE HEPATITIS C ANTIBODY (test c ode = 4675) NON-REACTIVE INTERPRETATION HEPATITIS A: (test code = 2552) (NOTE) INTERPRETATION HEPATITIS B: (test code = 56194) (NOTE) INTERPRETATION HEPATITIS C: (test code = 05171) (NOTE) RPR REFLEX TO T. PALLIDUM - PA [ADDED]2021-07-20 00:00:00* Test Item Value Reference Range Interpretation Comme nts RPR (test code = 11746) NON-REACTIVE RPR TITER (test code = 3500) NOT INDIC. TITER RPR REFLEX TO T. PALLIDUM - PA [ADDED]2021-07-20 00:00:00* Test Item Value Reference Range Interpretation Comme nts RPR (test code = 38269) NON-REACTIVE RPR TITER (test code = 3500) NOT INDIC. TITER SARS-CoV-2 (COVID-19) by RT-PCR (HIGH RISK)2021-06-06 00:00:00* Test Item Value Reference Range Interpretation Comme nts SARS-CoV-2 INTERPRETATION (t est code = 15729) NEGATIVE SOURCE (test code = 78232) NOT SPECIFIED SARS-CoV-2 (COVID-19) by RT-PCR (HIGH RISK)2021-06-06 00:00:00* Test Item Value Reference Range Interpretation Comme nts SARS-CoV-2 INTERPRETATION (t est code = 46931) NEGATIVE SOURCE (test code = 10884) NOT SPECIFIED VAGINAL PATHOGENS DNA PANEL [ADDED]2021-05-01 00:00:00* Test Item Value Reference Range Interpretation Comme nts JOVANY SPECIES (test code = 38709) NEGATIVE G. VAGINALIS (test code = 77072) POSITIVE T. VAGINALIS (test code = 47422) NEGATIVE VAGINAL PATHOGENS DNA PANEL [ADDED]2021-05-01 00:00:00* Test Item Value Reference Range Interpretation Comme nts JOVANY SPECIES (test code = 38892) NEGATIVE G. VAGINALIS (test code = 14079) POSITIVE T. VAGINALIS (test code = 30244) NEGATIVE NOTE: [ADDED]2021-05-01 00:00:00* Test Item Value Reference Range Interpretation Comme nts NOTE: (test code = 998) (NOTE) PAP TEST, THINPREP, [id number] 00:00:00* Test Item Value Reference Range Interpretation Comme nts SOURCE: (test code = 8001) Endocervical SLIDES: (test code = 8011) 1 LMP: (test code = 8021) 01/17/2021 SPECIMEN ADEQUACY: (test code = 31843) (NOTE) INTERPRETATION: (test code = 13616) ASCUS/EPITH. ABNORMALITY; SEE BELOW OTHER COMMENTS: (test code = 8081) (NOTE) MELT HOUSE SUPERVISOR: (test code = 8101) ABDIAS Bynum(ASCP) QC TECHNOLOGIST: (test code = 8111) [facility])CT(IA C) PATHOLOGIST INTERPRETATION BY: (test code = 8122) Amita Morales M.D. LOCATION: (test code = 36643) (NOTE) CPT: (test code = 8140) (NOTE) PAP TEST, THINPREP, [id number] 00:00:00* Test Item Value Reference Range Interpretation Comme nts SOURCE: (test code = 8001) Endocervical SLIDES: (test code = 8011) 1 LMP: (test code = 8021) 01/17/2021 SPECIMEN ADEQUACY: (test code = 29824) (NOTE) INTERPRETATION: (test code = 66244) ASCUS/EPITH. ABNORMALITY; SEE BELOW OTHER COMMENTS: (test code = 8081) (NOTE) MELT HOUSE SUPERVISOR: (test code = 8101) Iman WiseCT(ASCP) QC TECHNOLOGIST: (test code = 8111) [facility](AS[facility])CT(IA C) PATHOLOGIST INTERPRETATION BY: (test code = 8122) Amita Morales M.D. LOCATION: (test code = 42561) (NOTE) CPT: (test code = 8140) (NOTE) GC AND CHLAMYDIA AMPLIFIED, [id number] 00:00:00* Test Item Value Reference Range Interpretation Comme nts GONORRHEA, TMA (test code = 12818) NEGATIVE CHLAMYDIA, TMA (test code = 20911) NEGATIVE GC AND CHLAMYDIA AMPLIFIED, [id number] 00:00:00* Test Item Value Reference Range Interpretation Comme nts GONORRHEA, TMA (test code = 88764) NEGATIVE CHLAMYDIA, TMA (test code = 45831) NEGATIVE ACUTE HEPATITIS [id number] 00:00:00* Test Item Value Reference Range Interpretation Comme nts HEPATITIS A IgM (test code = 44856) NON-REACTIVE HEPATITIS B CORE IgM (test c ode = 4644) NON-REACTIVE HEPATITIS B SURF AG (test co de = 2739) NON-REACTIVE HEPATITIS C ANTIBODY (test c ode = 4618) NON-REACTIVE INTERPRETATION HEPATITIS A: (test code = 2552) (NOTE) INTERPRETATION HEPATITIS B: (test code = 03836) (NOTE) INTERPRETATION HEPATITIS C: (test code = 66176) (NOTE) ACUTE HEPATITIS [id number] 00:00:00* Test Item Value Reference Range Interpretation Comme nts HEPATITIS A IgM (test code = 41327) NON-REACTIVE HEPATITIS B CORE IgM (test c ode = 4644) NON-REACTIVE HEPATITIS B SURF AG (test co de = 2739) NON-REACTIVE HEPATITIS C ANTIBODY (test c ode = 4675) NON-REACTIVE INTERPRETATION HEPATITIS A: (test code = 2552) (NOTE) INTERPRETATION HEPATITIS B: (test code = 10923) (NOTE) INTERPRETATION HEPATITIS C: (test code = 82363) (NOTE) [id number] 00:00:00* Test Item Value Reference Range Interpretation Comme nts RPR RESULT (test code = 3501) NON-REACTIVE RPR TITER (test code = 3500) NOT INDIC. TITER [id number] 00:00:00* Test Item Value Reference Range Interpretation Comme nts RPR RESULT (test code = 3501) NON-REACTIVE RPR TITER (test code = 3500) NOT INDIC. TITER [id number] 00:00:00* Test Item Value Reference Range Interpretation Comme nts RPR RESULT (test code = 3501) NON-REACTIVE RPR TITER (test code = 3500) NOT INDIC. TITER HIV AB/AG COMBO RFLX [id number] 00:00:00* Test Item Value Reference Range Interpretation Comme nts HIV 1/2 4TH GEN, RFLX CONF ( test code = 3514) NON-REACTIVE HPV HIGH RISK WITH GENOTYPE, [id number] 00:00:00* Test Item Value Reference Range Interpretation Comme nts HPV HIGH RISK INTERP (test c ode = 55122) POSITIVE HPV 16 (test code = 89737) NEGATIVE HPV 18 (test code = 41517) NEGATIVE HPV, HR, OTHER GENOTYPES (te st code = 28472) POSITIVE HPV HIGH RISK WITH GENOTYPE, [id number] 00:00:00* Test Item Value Reference Range Interpretation Comme nts HPV HIGH RISK INTERP (test c ode = 61815) POSITIVE HPV 16 (test code = 07682) NEGATIVE HPV 18 (test code = 25673) NEGATIVE HPV, HR, OTHER GENOTYPES (te st code = 91004) POSITIVE HIV AB/AG COMBO RFLX [id number] 00:00:00* Test Item Value Reference Range Interpretation Comme nts HIV 1/2 4TH GEN, RFLX CONF ( test code = 3514) NON-REACTIVE GC AND CHLAMYDIA, AMPLIFIED, [id number] 00:00:00* Test Item Value Reference Range Interpretation Comme nts GONORRHEA, NAAT (test code = 38451) NEGATIVE CHLAMYDIA, NAAT (test code = 77886) NEGATIVE GC AND CHLAMYDIA, AMPLIFIED, [id number] 00:00:00* Test Item Value Reference Range Interpretation Comme nts GONORRHEA, NAAT (test code = 90584) NEGATIVE CHLAMYDIA, NAAT (test code = 53392) NEGATIVE Notes Date/Time Note Provider Source 2023-10-18 12:25:53 [id number] vCPzSdH81m8ky9 tzBD2Yg2rhSQ/eBkNW+ZmfWnEzQwQf6559 -12-31T12:25:53 PT D/C home. GCS15, VS stable. Given D/C paperwork. Pt ambulatory at time of discharge. Pt educated on med usage, follow up care, s/s worsening condition, need for hydration. Pt verbalized understanding. [place] [address]-1Mmyakmros department PzdwVL1160-17-98N34:26:05Emergency department NoteTXT1..840.446238.1.13.104.2.7 .2.037743|[id number] for patient soea67905-3YwntKVJANHOVXMHBtxxhnxv d C-CDA narrative [id number] E Linkes RNUTMBUTMB - [address] Ru[id number] 61AGULMCIDXEEOMKTUVZEWDX5882-95-72 T12:26:051.2.840.663790.1.72.3.15| 1.840.216569.1.13.104.2.7.2.7278 [id number] Pauly Duggan RN [facility] 2023-10-18 10:27:45 KYgrVa4GWflEtNlj5I9H N+k/lqhF7v8+hZ GZg4tzPV0MFOCoKxZmZW8JIAl8AJa87445 -12-31T10:27:45 Patient states "I have really just been having some really sharp chest pains, it is like my third day."Patient denies cough. 43093-1Btvvbufty department Triage oztcAL2274-67-93A62:28:[facility] Triage noteTXT1.2.840.323833.1.13.104.2.7 .2.440417|[id number] for patient ktge23879-7Bpitpetro department NoteLNNARRATIVEFormatted C-CDA narrative [id number] S Cryer RNUT[address] [id number] 20LEEOIZJKDGQYKGSPMSVZPO3922-48-04 T10:28:131.2.840.729169.1.72.3.15| 1.2.840.211220.1.13.104.2.7.2.7278 [id number] Jr Hobson RN [facility]
[2023-11-16 20:38] LABS: Absolute Lymphocytes (CBC) 2.5 K/uL (0.7-4.9); Hematocrit 39.9 % (36.0-45.0); Lymphocytes % 28.1 % (15.3-44.8); MCV 86.8 fL (80-100); Platelets 290 thou/uL (152-406)
[2023-11-16 20:49] LABS: Specific Gravity 1.026 (1.005-1.030)
[2023-11-16 20:59] LABS: Protime INR 1.07
[2023-11-16 21:10] LABS: ALT/SGPT 28 U/L (13-56); AST/SGOT 19 U/L (15-37); Albumin 3.7 g/dL (3.4-5.0); Alkaline Phosphatase 80 U/L (45-117); BUN Blood Urea Nitrogen 14 mg/dL (7-18); Bicarbonate 30 mEq/L (21-32); Bilirubin Total 0.2 mg/dL (0.2-1.0); Glomerular Filtration Rate 93 ml/min (=/>90); Glucose Level 76 mg/dL (74-106); Magnesium 2.1 mg/dL (1.6-2.4); NT PRO-BNP 35 pg/mL (<125); Potassium 3.9 mEq/L (3.5-5.1); Protein, Total 7.5 g/dL (6.4-8.2); Sodium Level 136 mEq/L (136-145)
[2023-11-16 21:12] LABS: Bilirubin Direct < 0.1 mg/dL (0-0.2); Bilirubin Indirect, Calculated ND mg/dL (0.2-0.8); Troponin High Sensitivity < 3.0 pg/mL (<58.9)
--- NOTE | 2023-11-16 21:32 | RAD REPORT ---
EXAM DESCRIPTION: Hollie Single View11/16/2023 8:59 pm CLINICAL HISTORY: CHEST PAIN COMPARISON: Chest Pa And Lat (2 Views) dated 05/29/2017 TECHNIQUE: Portable AP view of the chest. FINDINGS: Decreased penetration somewhat limits evaluation. The lungs are clear. No pneumothorax or effusion. The cardiomediastinal contours are unremarkable. IMPRESSION: No acute cardiopulmonary process.
--- NOTE | 2023-11-16 22:02 | EDPHYS ---
Physician Documentation [facility] Name: Niru Castro Age: 23 yrs Sex: Female : 2000 Arrival Date: 11/16/2023 Time: 19:52 Bed DX4 Private MD: ED Physician Dario Ragland HPI: 11/16 20:02 This 23 yrs old Female presents to ER via Unassigned with complaints of Chest sp4 Pain, Nausea. 20:50 Patient is a 23-year-old female who has history of hypothyroidism and takes sp4 methimazole.. Patient states she has been out of methimazole for the past 5 days. 4 days ago patient manifested with midsternal chest pain, nausea and pain with radiation to the left arm with numbness tingling in the left arm. However patient has been out of methimazole. Patient has history of hyperthyroidism and Graves' disease.. Historical: - Allergies: 20:05 No Known Allergies; tl4 - Home Meds: 20:05 Methimazole 20mg Oral 1 tab daily [Active]; tl4 - PMHx: 20:05 HYPERGLYCEMIA; Hyperthyroidism; Graves disease; tl4 - PSHx: 20:05 Appendectomy; Cholecystectomy; Repair of inguinal hernia; tl4 - Immunization history:: Adult Immunizations unknown. - Social history:: Smoking status: Patient denies any tobacco usage or history of. - Family history:: not pertinent. ROS: 20:50 Constitutional: Negative for fever, chills, and weight loss, positive chest pain, sp4 positive nausea, positive numbness and tingling 20:50 All other systems are negative, Exam: 20:50 Constitutional: This is a well developed, well nourished patient who is awake, alert, sp4 and in no acute distress. Head/Face: Normocephalic, atraumatic. Eyes: Pupils equal round and reactive to light, extra-ocular motions intact. Lids and lashes normal. Conjunctiva and sclera are not injected. Cornea within normal limits. Periorbital areas with no swelling, redness, or edema. ENT: Nares patent. No nasal discharge, no septal abnormalities noted. Tympanic membranes are normal and external auditory canals are clear. Oropharynx with no redness, swelling, or masses, exudates, or evidence of obstruction, uvula midline. Mucous membranes moist. Neck: Trachea midline, no thyromegaly or masses palpated, and no cervical lymphadenopathy. Supple, full range of motion without nuchal rigidity, or vertebral point tenderness. Chest/axilla: Normal chest wall appearance and motion. Nontender with no deformity. No lesions are appreciated. Cardiovascular: Regular rate and rhythm with a normal S1 and S2. No gallops, murmurs, or rubs. Normal PMI, no JVD. No pulse deficits. Respiratory: Lungs have equal breath sounds bilaterally, clear to auscultation and percussion. No rales, rhonchi or wheezes noted. No increased work of breathing, no retractions or nasal flaring. Abdomen/GI: Soft, non-tender, with normal bowel sounds. No distension or tympany. No guarding or rebound. No evidence of tenderness throughout. Back: No spinal tenderness. No costovertebral tenderness. Skin: Warm, dry with normal turgor. Normal color with no rashes, no lesions, and no evidence of cellulitis. MS/ Extremity: Pulses equal, no cyanosis. Neurovascular intact. Full, normal range of motion. Neuro: Awake and alert, GCS 15, oriented to person, place, time, and situation. Cranial nerves II-XII grossly intact. Motor strength 5/5 in all extremities. Sensory grossly intact. Psych: Awake, alert, with orientation to person, place and time. Behavior, mood, and affect are within normal limits 21:49 ECG was reviewed by the Attending Physician. EKG at 2124 reveals normal sinus rhythm at sp4 the rate of 75 Vital Signs: 20:01 BP 112 / 77; Pulse 95; Resp 16; Temp 98.6(O); Pulse Ox 99% on R/A; Weight 72.57 kg; tl4 Height 4 ft. 11 in. ; Pain 4/10; 22:18 BP 110 / 76; Pulse 88; Resp 16; Pulse Ox 100% ; vc1 20:01 Body Mass Index 32.32 (72.57 kg, 149.86 cm) tl4 20:01 Pain Scale: Adult tl4 MDM: 20:02 Patient medically screened. sp4 21:53 HEART Score: History: Slightly Suspicious (0), ECG: Normal (0), Age: < or = 45 years sp4 (0), Risk Factors: No Risk Factors Known (0), Troponin: < or = 1 x Normal Limit (0), Total Score = 0. 21:59 Differential diagnosis: acute pericarditis, anxiety, coronary artery disease chest wall sp4 pain, congestive heart failure costochondritis. Data reviewed: vital signs, nurses notes, old medical records, lab test result(s), EKG, radiologic studies, plain films. ED course: Stable for discharge home . 11/16 20:02 Order name: Test, Urine; Complete Time: 21:50 11/16 20:06 Order name: Basic Metabolic Panel; Complete Time: :50 11/16 20:06 Order name: CBC with Diff; Complete Time: :11/16 20:06 Order name: LFT's; Complete Time: :11/16 20:06 Order name: Magnesium; Complete Time: :11/16 20:06 Order name: NT PRO-BNP; Complete Time: :11/16 20:06 Order name: PT-INR; Complete Time: :11/16 20:06 Order name: Troponin HS; Complete Time: :50 11/16 20:06 Order name: TSH; Complete Time: :11/16 20:06 Order name: T4 Free; Complete Time: :11/16 20:06 Order name: XRAY Chest (1 view); Complete Time: :11/16 20:06 Order name: EKG; Complete Time: 20:11/16 20:06 Order name: EKG - Nurse/Tech; Complete Time: :11/16 20:06 Order name: IV Saline Lock; Complete Time: :11/16 20:06 Order name: Labs collected and sent; Complete Time: :11/16 20:06 Order name: O2 Per Protocol; Complete Time: :11/16 20:06 Order name: O2 Sat Monitoring; Complete Time: : EC:49 Rate is 75 beats/min. Rhythm is regular, Normal Sinus Rhythm. QRS [place] is Normal. NC sp4 interval is normal. QRS interval is normal. QT interval is normal. No Q waves. T waves are Normal. No ST changes noted. Clinical impression: Normal ECG. Interpreted by me. Reviewed by me. Administered Medications: 20:39 Drug: Ondansetron IVP 4 mg IVP once; over 2 minutes Route: IVP; Site: right antecubital;cm10 22:16 Follow up: Response: No adverse reaction; Marked relief of symptoms vc1 20:39 Drug: NS 0.9% IV 1000 ml IV at 1 bolus Per protocol; 1000 mL bolus Route: IV; Rate: 1 cm10 bolus; Site: right antecubital; 21:39 Drug: Aspirin PO Chewable Tablet 324 mg PO once; 81 mg tablets x 4 Route: PO; vc1 22:16 Follow up: Response: No adverse reaction; Marked relief of symptoms vc1 22:15 Drug: Diazepam PO 5 mg PO once Route: PO; vc1 22:16 Follow up: Response: Medication administered at discharge. vc1 Disposition Summary: 11/16/23 22:01 Discharge Ordered Problem: new sp4 Symptoms: have improved sp4 Condition: Stable sp4 Diagnosis - Noncardiac chest pain, hypothyroidism, anxiety attack, History of Graves' disease sp4 Followup: sp4 - With: Private Physician - When: 7 - 10 days - Reason: Recheck today's complaints Discharge Instructions: - Discharge Summary Sheet sp4 - Hyperthyroidism sp4 Forms: - Patient Portal Instructions sp4 Prescriptions: - methimazole 10 mg Oral tablet - take 1 tablet ORAL route daily; 30 tablet; Refills: 0, Product Selection sp4 Permitted - Valium 5 mg Oral Tablet - take 1 tablet ORAL route every 8 hours As needed; 6 tablet; Refills: 0, Product sp4 Selection Permitted Signatures: Dispatcher [employer] Cristina Hollingsworth RN RN vc1 Dario Ragland MD MD sp4 Kathryn Castro RN RN cm10 Iggy Azar 4
--- NOTE | 2023-11-16 22:02 | ER ---
Nurse's Notes [facility] Name: Niru Castro Age: 23 yrs Sex: Female : 2000 Arrival Date: 11/16/2023 Time: 19:52 Bed DX4 Private MD: Diagnosis: Noncardiac chest pain, hypothyroidism, anxiety attack, History of Graves' disease Presentation: 11/16 20:01 Chief complaint: Patient states: Pt c/o constant chest pain x 3-4 days that gets worse tl4 at night. Pt also c/o "tingling" on the left side of her body x 2 days. Pt developed nausea today. Pt denies vomiting, diarrhea, fever/chills, SOB. Coronavirus screen: Vaccine status: Patient reports receiving the 2nd dose of the covid vaccine. At this time, the client does not indicate any symptoms associated with coronavirus-19. Ebola Screen: Patient negative for fever greater than or equal to 101.5 degrees Fahrenheit, and additional compatible Ebola Virus Disease symptoms Patient denies exposure to infectious person. Patient denies travel to an Ebola-affected area in the 21 days before illness onset. No symptoms or risks identified at this time. Initial Sepsis Screen: Does the patient meet any 2 criteria? No. Patient's initial sepsis screen is negative. Does the patient have a suspected source of infection? No. Patient's initial sepsis screen is negative. Risk Assessment: Do you want to hurt yourself or someone else? Patient reports no desire to harm self or others. Onset of symptoms was November 12, 2023. 20:01 Method Of Arrival: Ambulatory tl4 20:01 Acuity: JOLLY 3 tl4 Triage Assessment: 20:04 General: Appears in no apparent distress. Behavior is calm, cooperative. Pain: tl4 Complains of pain in chest. EENT: No deficits noted. No signs and/or symptoms were reported regarding the EENT system. Neuro: No deficits noted. Cardiovascular: Reports chest pain, Denies diaphoresis, fatigue, lightheadedness, palpitations, syncope. Respiratory: Denies cough, shortness of breath. GI: Reports nausea, Patient currently denies abdominal pain, diarrhea, vomiting. : No deficits noted. No signs and/or symptoms were reported regarding the genitourinary system. Historical: - Allergies: 20:05 No Known Allergies; tl4 - Home Meds: 20:05 Methimazole 20mg Oral 1 tab daily [Active]; tl4 - PMHx: 20:05 HYPERGLYCEMIA; Hyperthyroidism; Graves disease; tl4 - PSHx: 20:05 Appendectomy; Cholecystectomy; Repair of inguinal hernia; tl4 - Immunization history:: Adult Immunizations unknown. - Social history:: Smoking status: Patient denies any tobacco usage or history of. - Family history:: not pertinent. Screenin:17 [facility] ED Fall Risk Assessment (Adult) History of falling in the last 3 months, vc1 including since admission No falls in past 3 months (0 pts) Confusion or Disorientation No (0 pts) Intoxicated or Sedated No (0 pts) Impaired Gait No (0 pts) Mobility Assist Device Used No (0 pt) Altered Elimination No (0 pt) Score/Fall Risk Level 0 - 2 = Low Risk Oriented to surroundings, Maintained a safe environment, Educated pt \\T\\ family on fall prevention, incl call for assistance when getting out of bed. Abuse screen: Denies threats or abuse. Nutritional screening: No deficits noted. Tuberculosis screening: No symptoms or risk factors identified. Assessment: 22:19 Reassessment: Patient and/or family updated on plan of care and expected duration. Pain vc1 level reassessed. Patient is alert, oriented x 3, equal unlabored respirations, skin warm/dry/pink. Patient states feeling better. Patient states symptoms have improved. Vital Signs: 20:01 BP 112 / 77; Pulse 95; Resp 16; Temp 98.6(O); Pulse Ox 99% on R/A; Weight 72.57 kg; tl4 Height 4 ft. 11 in. ; Pain 4/10; 22:18 BP 110 / 76; Pulse 88; Resp 16; Pulse Ox 100% ; vc1 20:01 Body Mass Index 32.32 (72.57 kg, 149.86 cm) tl4 20:01 Pain Scale: Adult tl4 ED Course: 19:57 Patient arrived in ED. ag3 20:02 Dario Ragland MD is Attending Physician. sp4 20:04 Triage completed. tl4 20:07 Arm band placed on right wrist. tl4 20:30 Initial lab(s) drawn, by me, sent to lab. Inserted saline lock: 20 gauge in right cm10 antecubital area, using aseptic technique. Blood collected. Patient maintains SpO2 saturation greater than 95% on room air. 20:31 Basic Metabolic Panel Sent. vc1 20:31 CBC with Diff Sent. vc1 20:31 LFT's Sent. vc1 20:31 Magnesium Sent. vc1 20:31 NT PRO-BNP Sent. vc1 20:31 PT-INR Sent. vc1 20:31 Troponin HS Sent. vc1 20:31 Test, Urine Sent. vc1 20:31 T4 Free Sent. vc1 20:31 TSH Sent. vc1 21:01 XRAY Chest (1 view) In Process Unspecified. EDMS 22:17 No provider procedures requiring assistance completed. IV discontinued, intact, vc1 bleeding controlled, No redness/swelling at site. Pressure dressing applied. Administered Medications: 20:39 Drug: Ondansetron IVP 4 mg IVP once; over 2 minutes Route: IVP; Site: right antecubital;cm10 22:16 Follow up: Response: No adverse reaction; Marked relief of symptoms vc1 20:39 Drug: NS 0.9% IV 1000 ml IV at 1 bolus Per protocol; 1000 mL bolus Route: IV; Rate: 1 cm10 bolus; Site: right antecubital; 21:39 Drug: Aspirin PO Chewable Tablet 324 mg PO once; 81 mg tablets x 4 Route: PO; vc1 22:16 Follow up: Response: No adverse reaction; Marked relief of symptoms vc1 22:15 Drug: Diazepam PO 5 mg PO once Route: PO; vc1 22:16 Follow up: Response: Medication administered at discharge. vc1 Medication: 22:18 VIS not applicable for this client. vc1 Outcome: 22:01 Discharge ordered by . bethel 22:18 Discharged to home ambulatory, with family, vc1 22:18 Condition: good 22:18 Discharge instructions given to patient, Instructed on discharge instructions, follow up and referral plans. medication usage, Demonstrated understanding of instructions, follow-up care, medications, Prescriptions given X 2, 22:19 Patient left the ED. vc1 Signatures: Dispatcher [employer] EDTN Isabel Chandra3 Cristina Ferrera RN RN vc1 Dario Ragland MD MD sp4 Kathryn Castro RN RN cm10 [facility]
[2023-11-17 02:38] VITALS: BP 110/76; TEMP 98.6; O2SAT 100
== END ==
LOC: ER 19:52
DX: F41.0 Panic disorder [episodic paroxysmal anxiety] (principal); E03.9 Hypothyroidism, unspecified
CPT/HCPCS: 93005; 85025; 80048; 36415; 83735; 81025; 85610; 80076; 84443; 84484; 84439; 83880; 71045; J2405; J7030

== ENCOUNTER 2024-09-22 17:33 | Emergency (ER) | payer OTHER, SELFPAY ==
--- OUTSIDE RECORDS SUMMARY | 2024-09-22 17:39 | XMS REPORT | Continuity of Care Document ---
Author Name Unknown Address [address] [facility] [address] [place] [address] [facility] Address [address] [facility] [place] [address] Care Team Providers Care Correctional Officer Name Role Phone Autumn Cruz Primary Care Physician STEPHANIA NIX Attending Clinician Unavailable Stephania Nix MD Attending Clinician [phone] Unknown, Attending Attending Clinician Unavailab JESUSITA Abreu Attending Clinician Unavailable JESUSITA BEAULIEU Attending Clinician Unavailable Jesusita Beaulieu MD Attending Clinician [phone] REENA ADAMSON Attending Clinician Unavailable Reena Adamson PA-C Attending Clinician [phone] Unknown, Attending Attending Clinician Unavailab DORIS Watkins Attending Clinician Unavailab DORIS Watkins Attending Clinician Unavailab MAMI Ospina Attending Clinician Unavailable MAMI SHABAZZ Attending Clinician Unavailable SOBIA SLOAN Attending Clinician Unavailable Sobia Sloan PA-C Attending Clinician [phone] MUNDO CHAMORRO Attending Clinician Unavailable Mundo Salas Attending Clinician +[phone] GC_TEG_Boccalandro_C Attending Clinician Unavail able Stephania Nix MD Attending Clinician [phone] LYDIA TYLER Attending Clinician Unavailable Lorena Akers Attending Clinician [phone] LORENA SOLER Attending Clinician Unavailable JACKI MONTEIRO Attending Clinician Unavailabl e Guillermojanniebailey QUINTEROSP, Guillermoayzaria Attending Clinician [phone] PETER MINOR Attending Clinician Unavailable Peter Minor DO Attending Clinician [phone] Doctor Unassigned, [place] Attending Clinician U KARSISA Camacho Attending Clinician Unavailable Karissa Fox MD Attending Clinician [phone] JO KENT Attending Clinician UnavailPAWAN Kennedy Attending Clinician Unavaila harpreet QUINTEROSP, Pawan Palomino Attending Clinician [phone] Keri Bernard Attending Clinician [phone] NERISSA ELY Attending Clinician Unavailable Solis LAI, Nerissa Attending Clinician [phone] Elena Noel MD Attending Clinician +[phone] ELENA NOEL Attending Clinician Unavailable Tasneem Herman RN Attending Clinician [phone] Hunter Martinez MD Attending Clinician +[phone] Cinthya Strauss MD Attending Clinician +[phone] Tate Zamorano MD Attending Clinician +[phone] Jodi Guevara Attending Clinician +[phone] Kyle Pascual DO Attending Clinician [phone] SRINATH KAMARA Attending Clinician Unavailable Sarah Guajardo Attending Clinician [phone] OTF SANCHEZ Attending Clinician UnaKatie López Attending Clinician [phone] Balaji Rosario MD Attending Clinician [phone] JODI SALGADO Attending Clinician Unavailable CATHLEEN MCKEON Attending Clinician Unavailable NORA LUIS Attending Clinician Unav ailable SRIKANTH QUINTANILLA Attending Clinician Unavailab Grace Gomez Attending Clinician [phone] Mery HENSON, Luda Attending Clinician Unavailable Srikanth Sousa Attending Clinician [phone] Ariel HENSON, Tasneem Attending Clinician Unavailcarito Peter MD, Jeremy Attending Clinician +[phone] Shlomo Heredia MD Attending Clinician +- [phone] Rosalio Mccall MD Attending Clinician + [phone] MAMI SHABAZZ Admitting Clinician Unavailable GC_TEG_Boccalandro_C Admitting Clinician Unavail able LYDIA TYLER Admitting Clinician Unavailable PETER MINOR Admitting Clinician Unavailable KARISSA FOX Admitting Clinician Unavailable MAMI SHABAZZ Admitting Clinician Unavailable PAWAN ESTRELLA Admitting Clinician UnavailNERISSA Driscoll Admitting Clinician Unavailable Cinthya Strauss MD Admitting Clinician [phone] Balaji Rosario MD Admitting Clinician [phone] JODI SALGADO Admitting Clinician Unavailable Grace Hammer Admitting Clinician [phone] Jeremy Peter MD Admitting Clinician +[phone] Shlomo Heredia MD Admitting Clinician +- [phone] Rosalio Mccall MD Admitting Clinician + [phone] Payers Payer Name Policy Type Policy Number Effective Date Expirati on Date Source MEDICAID PENDING PENDING 2021 00:00:00 [employer]WORK [id number] 2024 00:00:00 [employer] [id number] 2023 00:00:00 ENTRUST - OPEN ACCESS [id number] [employer] [place] [employer] [place] [id number] 2022 00:00:00 2022 00:00:00 MEDICAID OF [place] [id number] 2018 00:00:00 2019 00:00:00 Problems Condition Name Condition Details Condition Category Status Onset Date Resolution Date Last Treatment Date Treating Clinician Comments Source Calculus of common bile duct with obstructio n Calculus of common bile duct with obstructio n Disease Active 9-04 00:00: 00 [facility] Graves' disease Graves' Disease Problem Active 3-29 00:00: 00 [facility] 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 to acute thyroiditi s Disease Active 2-11 00:00: 00 [facility] care and examinatio n of lactating mother care and examinatio n of lactating mother Disease Resolve d 2018-10 0-10 00:00: 00 2019-08-18 00:00:00 2019-08-18 10:31:31 [facility] (spontaneo us vaginal delivery) (spontaneo us vaginal delivery) Disease Resolve d 9-20 00:00: 00 2019-08-18 00:00:00 2019-08-18 10:31:35 [facility] Single live Single live Disease Resolve d 9-20 00:00: 00 2019-08-18 00:00:00 2019-08-18 10:31:34 [facility] Rubella non-immune status, antepartum Rubella non-immune status, antepartum Disease Resolve d 9-20 00:00: 00 2019-08-18 00:00:00 2019-08-18 10:31:33 [facility] 38 weeks gestation of 38 weeks gestation of Disease Resolve d 9-18 00:00: 00 2019-08-18 00:00:00 2019-08-18 10:31:19 [facility] Indication for care or interventi on in labor or delivery-I OL for decreased FM Indication for care or interventi on in labor or delivery-I OL for decreased FM Disease Resolve d 9-18 00:00: 00 2019-08-18 00:00:00 2019-08-18 10:31:28 [facility] Decreased movement Decreased movement Disease Resolve d 9-18 00:00: 00 2019-08-18 00:00:00 2019-08-18 10:31:23 [facility] High-risk in third trimester High-risk in third trimester Disease Resolve d 2018-0 4-10 00:00: 00 2019-08-18 00:00:00 2019-08-18 10:31:24 [facility] History of miscarriag e, currently History of miscarriag e, currently Disease Resolve d 2018-0 3-26 00:00: 00 2019-08-18 00:00:00 2019-08-18 10:31:27 [facility] Primigravi da in third trimester Primigravi da in third trimester Disease Resolve d 2018-0 3-26 00:00: 00 2019-08-18 00:00:00 2019-08-18 10:31:32 [facility] Chlamydia trachomati s infection of lower genitourin sarbjit sites Chlamydia trachomati s infection of lower genitourin sarbjit sites Disease Resolve d 2018-0 2-15 00:00: 00 2019-08-18 00:00:00 2019-08-18 10:31:21 [facility] Rob Hick's contractio n Rob Hick's contractio n Disease Resolve d 2018-0 9-04 00:00: 00 2019-07-06 00:00:00 2019-07-06 01:05:26 [facility] uterine contractio ns uterine contractio ns Disease Resolve d 2018-0 8-24 00:00: 00 2019-07-06 00:00:00 2019-07-06 00:14:28 [facility] 34 weeks gestation of 34 weeks gestation of Disease Resolve d 2018-0 8-02 00:00: 00 2019-07-06 00:00:00 2019-07-06 00:07:55 [facility] BV (bacterial vaginosis) BV (bacterial vaginosis) Disease Resolve d 2018-0 7-22 00:00: 00 2019-07-06 00:00:00 2019-07-06 00:08:00 [facility] 29 weeks gestation of 29 weeks gestation of Disease Resolve d 2018-0 7-22 00:00: 00 2019-07-06 00:00:00 2019-07-06 00:07:50 [facility] 27 weeks gestation of 27 weeks gestation of Disease Resolve d 2019-0 7-05 00:00: 00 2019-07-06 00:00:00 2019-07-06 00:07:46 [facility] 24 weeks gestation of 24 weeks gestation of Disease Resolve d 2019-0 6-15 00:00: 00 2019-07-06 00:00:00 2019-07-06 00:07:41 [facility] Round ligament pain Round ligament pain Disease Resolve d 2018-0 6-15 00:00: 00 2019-07-06 00:00:00 2019-07-06 01:05:23 [facility] Urine ketones Urine ketones Disease Resolve d 2019-0 2-08 00:00: 00 2019-07-06 00:00:00 2019-07-06 00:09:28 [facility] Nausea and vomiting during prior to 22 weeks gestation Nausea and vomiting during prior to 22 weeks gestation Disease Resolve d 2019-0 2-08 00:00: 00 2019-04-12 00:00:00 2019-04-12 08:52:40 [facility] Nausea and vomiting during prior to 22 weeks gestation Nausea and vomiting during prior to 22 weeks gestation Disease Resolve d 2018-0 2-08 00:00: 00 2019-04-12 00:00:00 2019-04-12 08:52:40 [facility] Diabetes Diabetes Disease Resolve d 0 1-01 00:00: 00 2018-11-29 00:00:00 2018-11-29 16:03:13 [facility] Allergies, Adverse Reactions, Alerts Allergy Name Allergy Type Status Severity Reaction(s) Onset Date Inactive Date Treating Clinician Comments Source NO KNOWN ALLERGIE S Drug Class Active [facility] Social History Social Habit Start Date Stop Date Quantity Comments Source Gender identity [facility] Alcoholic beverage intake 2024-09-04 00:00:00 2024-09-04 00:00:00 Current drinker of alcohol (finding) [facility] Alcohol intake 2023-12-14 00:00:00 2023-12-14 00:00:00 Current drinker of alcohol (finding) [facility] History of Social function 2023-12-06 00:00:00 2023-12-06 00:00:[address] [facility] Tobacco use and exposure 2023-07-21 00:00:00 2023-07-21 00:00:00 Smokeless tobacco non-user [facility] Exposure to SARS-CoV-2 (event) 2022-10-22 00:00:00 2022-11-01 16:02:[address] [facility] History SDOH Alcohol Frequency 2020-11-30 00:00:00 2020-11-30 00:00:[address] [facility] History SDOH Alcohol Std Drinks 2020-11-30 00:00:00 2020-11-30 00:00:[address] [facility] History SDOH Alcohol Binge 2020-11-30 00:00:00 2020-11-30 00:00:[address] [facility] Alcohol Comment 2019-08-18 00:00:00 2019-08-18 00:00:[address] [facility] Sex assigned at 2000 00:00:00 2000 00:00:[address] [facility] Smoking Status Start Date Stop Date Source Never smoked tobacco [facility] Medications Ordered Medication Name Filled Medication Name Start Date Stop Date Current Medication? Ordering Clinician Indication Dosage Frequency Signature (SIG) Comments Components Source bromphenira mine-pseudo ephedrine-D M (BROMFED DM) 2-30-10 mg/5 mL syrup 2023-10 00:00: 00 Yes [id number] 10mL Take 10 mL by mouth 4 (four) times daily as needed for Congestion /Allergies or Cold symptoms. [facility] methylPREDN ISolone (MEDROL, KAYLIN,) 4 mg tablets 2023-10 00:00: 00 Yes [id number] Take by mouth SEE-INSTRU CTIONS. follow package directions [facility] amoxicillin -clavulanat e (AUGMENTIN) 875-125 mg per tablet 2024-1 1-17 00:00: 00 09-15 05:59 :00 Yes [id number] 1{tbl} Take 1 tablet by mouth in the morning and 1 tablet in the evening. Do all this for 10 days. [facility] ketorolac (TORADOL) injection 30 mg 06-21 02:00: 00 06-21 00:56 :00 No 30mg 30 mg, Slow IV Push, ONCE, 1 dose, On Thu06/20/24 at 2100, Routine [facility] ondansetron (ZOFRAN (PF)) injection 4 mg 06-21 01:00: 00 06-21 00:56 :00 No 4mg 4 mg, Slow IV Push, ONCE, 1 dose, On Thu06/20/24 at 2000, MARILYN [facility] diphenhydrA MINE:lidoca ine 2% viscous:maa lox 1:1:1 ([facility]) oral suspension 15 mL 06-21 01:00: 00 06-21 00:56 :00 No 15mL 15 mL, Oral, ONCE, 1 dose, On Thu06/20/24 at 2000, Routine [facility] pantoprazol e (PROTONIX) 40 mg EC tablet 06-20 00:00: 00 Yes [id number] 40mg Take 1 tablet by mouth in the morning. [facility] ondansetron (ZOFRAN) 4 mg tablet 06-20 00:00: 00 Yes [id number] 4mg Take 1 tablet by mouth every 8 (eight) hours as needed for Nausea and Vomiting (N/V). [facility] ketorolac (TORADOL) injection 30 mg 03-21 05:30: 00 03-21 05:16 :00 No 30mg 30 mg, Slow IV Push, ONCE, 1 dose, On Thu03/21/24 at 0030, Routine [facility] NaCl 0.9% (NS) bolus infusion 1,000 mL 03-21 05:30: 00 03-21 05:56 :00 No 1000mL at 999 mL/hr, 1,000 mL, IV Infusion, ONCE, 1 dose, On 03/21/24 at 0030, MARILYN [facility] diphenhydrA MINE (BENADRYL) injection 25 mg 03-21 04:45: 00 03-21 05:16 :00 No 25mg 25 mg, Slow IV Push, ONCE, 1 dose, On 03/20/24 at 2345, STAT [facility] metoclopram royal HCl (REGLAN) injection 10 mg 03-21 04:45: 00 03-21 04:54 :00 No 10mg 10 mg, Slow IV Push, ONCE, 1 dose, On 03/20/24 at 2345, MARILYN [facility] ibuprofen 800 mg tablet 03-05 00:00: 00 Yes [id number] 800mg Take 1 tablet by mouth in the morning and 1 tablet at noon and 1 tablet in the evening. Take with meals. [facility] methocarbam oL 750 mg tablet 03-05 00:00: 00 Yes [id number] 750mg Take 1 tablet by mouth 4 (four) times daily. [facility] cyclobenzap rine 10 mg tablet 02-19 00:00: 00 03-05 00:00 :00 No [id number] 10mg Take 1 tablet by mouth in the morning and 1 tablet at noon and 1 tablet in the evening. [facility] ibuprofen 800 mg tablet 02-19 00:00: 00 03-05 00:00 :00 No [id number] 800mg Take 1 tablet by mouth in the morning and 1 tablet at noon and 1 tablet in the evening. Take with meals. [facility] cephalexin 500 mg tablet -17 00:00: 00 Yes 1mg Garrett San bromphenira mine-pseudo ephedrine-D M (BROMFED DM) 2-30-10 mg/5 mL syrup 2-18 00:00: 00 03-05 00:00 :00 No [id number] 10mL Take 10 mL by mouth 4 (four) times daily as needed for Cold symptoms or Cough. [facility] albuterol 90 mcg/actuati on inhaler 12-06 00:00: 00 03-05 00:00 :00 No [id number] 2{puff} Inhale 2 Puffs every 6 (six) hours as needed for Wheezing or Shortness of Breath. [facility] ketorolac (TORADOL) injection 30 mg 2022-10 17:30: 00 10-18 16:52 :00 No 30mg 30 mg, Slow IV Push, ONCE, 1 dose, On Thu10/18/23 at 1130, [facility] famotidine (PEPCID (PF)) injection 20 mg 2022-10 17:30: 00 10-18 16:53 :00 No 20mg 20 mg, Slow IV Push, ONCE, 1 dose, On Thu10/18/23 at 1130, [facility] ondansetron (ZOFRAN (PF)) injection 4 mg 2022-10 17:30: 00 10-18 16:52 :00 No 4mg 4 mg, Slow IV Push, ONCE, 1 dose, On Thu10/18/23 at 1130, [facility] NaCl 0.9% (NS) bolus infusion 1,000 mL 2022-10 17:30: 00 10-18 18:18 :00 No 1000mL at 999 mL/hr, 1,000 mL, IV Infusion, ONCE, 1 dose, On Thu10/18/23 at 1130, [facility] ibuprofen 600 mg tablet 2022-10 00:00: 00 03-05 00:00 :00 No [id number] 600mg Take 1 tablet by mouth every 6 (six) hours as needed for Pain (scale 4-6) or Temp > 38.5 C. [facility] albuterol 90 mcg/actuati on inhaler 2022-10 00:00: 00 03-05 00:00 :00 No [id number] 2{puff} Inhale 2 Puffs every 4 (four) hours as needed for Wheezing or Shortness of Breath. [facility] methylPREDN ISolone 4 mg tablets 2022-10 2 00:00: 00 03-05 00:00 :00 No [id number] Take by mouth SEE-INSTRU CTIONS. follow package directions [facility] amoxicillin 500 mg tablet 2022-10 2-08 00:00: 00 10-06 05:59 :00 No [id number] 1000mg Take 2 tablets by mouth in the morning for 10 days. [facility] TAKE 2 TABLETS BY MOUTH IN THE MORNING FOR 5 DAYS 2022-10 0 00:00: 00 Yes Garrett San INHALE 2 PUFFS BY MOUTH EVERY 6 HOURS NEEDED FOR WHEEZING FOR UP TO 10 DAYS 2022-10 003 00:00: 00 Yes Garrett San albuterol 90 mcg/actuati on inhaler 2022-10 0- 00:00: 00 08-01 04:59 :00 No [id number] 2{puff} Inhale 2 Puffs every 6 (six) hours as needed for Wheezing for up to 10 days. [facility] predniSONE 20 mg tablet 2022-10 0- 00:00: 00 07-27 04:59 :00 No [id number] 40mg Take 2 tablets by mouth in the morning for 5 days. [facility] ondansetron (ZOFRAN-ODT ) disintegrat ing tablet 8 mg 07-05 22:15: 00 07-05 21:24 :00 No [id number] 8mg [facility] ondansetron 4 mg disintegrat ing tablet 07-05 00:00: 00 03-05 00:00 :00 No [id number] 4mg Take 1 tablet by mouth every 8 (eight) hours as needed for Nausea and Vomiting (N/V). [facility] ketorolac (TORADOL) injection 30 mg 05-01 22:00: 00 05-01 21:24 :00 No 30mg 30 mg, Slow IV Push, ONCE, 1 dose, On Thu05/01/23 at 1700, MARILYN [facility] iopamidol (ISOVUE 370-500 mL) injection 75 mL 05-01 21:30: 00 05-01 21:30 :00 No [id number] 75mL 75 mL, Intravenou s, ONCE, 1 dose, On Thu05/01/23 at 1630, Routine [facility] cefTRIAXone (ROCEPHIN) 1,000 mg in NaCl 0.9% (NS) 100 mL MINI-BAG 05-01 21:15: 00 05-01 22:00 :00 No 1000mg 1,000 mg, IV Piggyback, ONCE, 1 dose, On Thu05/01/23 at 1615, Administer over 30 Minutes, 100 mL
Reas on for Anti-Infec tive: Documented Infection< br>Documen nivia Infection Site: Urine
D uration of Therapy: Other (see Comments) [facility] metoclopram royal HCl (REGLAN) injection 10 mg 05-01 21:15: 00 05-01 21:24 :00 No 10mg 10 mg, Slow IV Push, ONCE, 1 dose, On Thu05/01/23 at 1615, MARILYN [facility] metoclopram royal HCl 10 mg tablet 05-01 00:00: 00 03-05 00:00 :00 No [id number] 10mg Take 1 tablet by mouth every 6 (six) hours. [facility] cephALEXin (KEFLEX) 500 mg capsule 05-01 00:00: 00 03-05 00:00 :00 No [id number] 500mg Take 1 capsule by mouth in the morning and 1 capsule in the evening. [facility] naproxen 500 mg tablet 05-01 00:00: 00 05-12 04:59 :00 No [id number] 500mg Take 1 tablet by mouth in the morning and 1 tablet in the evening. Take with meals. Do all this for 10 days. [facility] INJECT 0.6 SQ QD X 1 WEEK THEN INCREASE TO 1.2 SQ QD 03-30 00:00: 00 Yes 183 Garrett F Jaswinder TAKE TWO (2) TABLET(S) BY MOUTH EVERY SIX HOURS NEEDED FOR CONTROL OF DIARRHEA. DO NOT TAKE MORE THAN 8 TABLETS PER DAY. 03-12 00:00: 00 02-21 00:00 :00 Kimberly San TAKE ONE (1) TABLET(S) BY MOUTH EVERY TWELVE HOURS NEEDED FOR NAUSEA AND VOMITING. 03-12 00:00: 00 02-21 00:00 :00 Kimberly San TAKE ONE (1) OR TWO (2) TABLET(S) BY MOUTH EVERY SIX HOURS NEEDED FOR ACUTE PAIN. 03-12 00:00: 00 02-21 00:00 :00 Kimberly San TAKE ONE (1) TABLET(S) BY MOUTH ONCE A DAY FOR 4 WEEKS. 03-12 00:00: 00 02-21 00:00 :00 Kimberly San TAKE ONE (1) CAPSULE(S) BY MOUTH ONCE A DAY. 01-31 00:00: 00 02-21 00:00 :00 Kimberly San TAKE ONE (1) TABLET(S) BY MOUTH EVERY TWELVE HOURS FOR 5 DAYS. 01-31 00:00: 00 02-21 00:00 :00 No Garrett San TAKE ONE NOW AND REPEAT IN 3 DAYS 01-09 00:00: 00 02-21 00:00 :00 No 150 Garrett San TAKE 1 TABLET TWICE DAILY UNTIL FINISHED. 01-09 00:00: 00 02-21 00:00 :00 No 500 Garrett aSn NaCl 0.9% (NS) bolus infusion 1,000 mL 2021-10 07:00: 00 10-08 08:24 :00 No 1000mL at 999 mL/hr, 1,000 mL, IV Infusion, ONCE, 1 dose, On Thu10/08/22 at 0100, [facility] (ATIVAN[facility] 0.5 mg 2021-10 06:15: 00 10-08 06:37 :00 No .5mg 0.5 mg, Slow IV Push, ONCE, 1 dose, On Thu10/08/22 at 0015, STAT [facility] metoprolol tartrate 25 mg tablet 2021-10- 00:00: 00 10-16 05:59 :00 No [id number] 25mg Take 1 tablet by mouth in the morning and 1 tablet in the evening. Do all this for 7 days. [facility] dicyclomine (BENTYL) injection 20 mg 2021-10 18:45: 00 08-13 18:11 :00 No 20mg 20 mg, Intramuscu lar, ONCE, 1 dose, On Thu08/13/22 at 1345, Routine [facility] iopamidol (ISOVUE 370-500 mL) injection 80 mL 2021-10 18:30: 00 08-13 18:30 :00 No [id number] 80mL 80 mL, Intravenou s, ONCE, 1 dose, On Thu08/13/22 at 1330, Routine [facility] metoclopram royal HCl (REGLAN) injection 10 mg 2021-10 18:00: 00 08-13 18:04 :00 No 10mg 10 mg, Slow IV Push, ONCE, 1 dose, On Thu08/13/22 at 1300, MARILYN [facility] ketorolac (TORADOL) injection 30 mg 2021-10 18:00: 00 08-13 17:07 :00 No 30mg 30 mg, Slow IV Push, ONCE, 1 dose, On Thu08/13/22 at 1300, Routine [facility] NaCl 0.9% (NS) bolus infusion 1,000 mL 2021-10 17:30: 00 08-13 17:57 :00 No 1000mL at 999 mL/hr, 1,000 mL, IV Infusion, ONCE, 1 dose, On Thu08/13/22 at 1230, MARILYN [facility] ondansetron (ZOFRAN (PF)) injection 4 mg 2021-10 17:00: 00 08-13 17:07 :00 No 4mg 4 mg, Slow IV Push, ONCE, 1 dose, On Thu08/13/22 at 1200, MARILYN [facility] morpHINE (4 mg/mL) injection 4 mg 2021-10 17:00: 00 08-13 17:08 :00 No 4mg 4 mg, Slow IV Push, ONCE, 1 dose, On Thu08/13/22 at 1200, STAT [facility] maalox:diph enhydrAMINE :lidocaine 2 % viscous 1:1:1 (FIRST-MOUT [facility]) oral suspension 15 mL 2021-10 17:00: 00 08-13 17:14 :00 No 15mL 15 mL, Oral, ONCE, 1 dose, On Thu08/13/22 at 1200, Routine [facility] metoclopram royal HCl 10 mg tablet 2021-10 00:00: 00 11-01 00:00 :00 No [id number] 10mg Take 1 tablet by mouth every 6 (six) hours as needed for Nausea and Vomiting (N/V). [facility] dicyclomine 20 mg tablet 2021-10 00:00: 00 08-21 04:59 :00 No [id number] 20mg Take 1 tablet by mouth 4 (four) times daily for 7 days. [facility] benzonatate 200 mg capsule 07-14 00:00: 00 11-01 00:00 :00 No [id number] 200mg Take 1 capsule by mouth 3 (three) times daily as needed for Cough. [facility] ibuprofen 800 mg tablet 07-14 00:00: 00 11-01 00:00 :00 No [id number] 800mg Take 1 tablet by mouth every 8 (eight) hours as needed for Temp > 38.5 C or Pain (scale 4-6). [facility] ondansetron (ZOFRAN) 4 mg tablet 07-14 00:00: 00 11-01 00:00 :00 No [id number] 4mg Take 1 tablet by mouth every 8 (eight) hours as needed for Nausea and Vomiting (N/V). [facility] doxycycline hyclate 100 mg tablet 02-17 00:00: 00 No 1mg Dose Unknown 02-17 00:00: 00 No doxycycline hyclate 100 mg tablet 02-17 00:00: 00 Yes 1mg Garrett San Dose Unknown 02-17 00:00: 00 Yes Garrett San Dose Unknown 01-30 00:00: 00 No Dose Unknown 14 00:00: 00 Yes Garrett San ondansetron (ZOFRAN (PF)) injection 4 mg 12-21 06:00: 00 12-21 05:12 :00 No 4mg 4 mg, Slow IV Push, ONCE, 1 dose, On 12/21/21 at 0000, MARILYN [facility] NaCl 0.9% (NS) bolus infusion 1,000 mL 12-21 06:00: 00 12-21 07:20 :00 No 1000mL at 999 mL/hr, 1,000 mL, IV Infusion, ONCE, 1 dose, On 12/21/21 at 0000, MARILYN [facility] ondansetron (ZOFRAN-ODT ) disintegrat ing tablet 4 mg 12-21 06:00: 00 12-21 04:56 :00 No 4mg 4 mg, Oral, ONCE, 1 dose, On 12/21/21 at 0000, Routine [facility] ondansetron 4 mg disintegrat ing tablet 12-21 00:00: 00 11-01 00:00 :00 No [id number] 4mg Take 1 tablet by mouth every 8 (eight) hours as needed for Nausea and Vomiting (N/V). [facility] ketorolac (TORADOL) injection 30 mg 11-03 08:00: 00 11-03 07:15 :00 No 30mg 30 mg, Slow IV Push, ONCE, 1 dose, On 11/03/21 at 0200, MARILYN [facility] aspirin tablet 325 mg 11-03 07:00: 00 11-03 06:02 :00 No 325mg 325 mg, Oral, ONCE, 1 dose, On 11/03/21 at 0100, MARILYN [facility] Dose Unknown 2020-10 0 00:00: 00 No Dose Unknown 2020-10 0 00:00: 00 Yes Garrett San Dose Unknown 2020-10 0- 00:00: 00 No Dose Unknown 2020-10 0 00:00: 00 Yes Garrett San medroxyprog esterone 150 mg/mL intramuscul ar suspension 07-17 00:00: 00 No 1mg/mL medroxyprog esterone 150 mg/mL intramuscul ar suspension 07-17 00:00: 00 Yes 1mg/mL [facility] metronidazo le 500 mg tablet 05-07 00:00: 00 No 1mg metronidazo le 500 mg tablet 05-07 00:00: 00 Yes 1mg [facility] Diflucan 150 mg tablet 04-24 00:00: 00 No mg Diflucan 150 mg tablet 04-24 00:00: 00 Yes mg [facility] ondansetron (ZOFRAN ODT) 4 mg disintegrat ing tablet 03-19 00:00: 00 12-21 00:00 :00 No [id number] 4mg Take 1 tablet by mouth every 8 (eight) hours as needed for Nausea and Vomiting (N/V). [facility] Zofran 4 mg tablet 01-11 00:00: 00 No 1mg propranolol 10 mg tablet 01-11 00:00: 00 No 1mg methimazole 10 mg tablet 01-11 00:00: 00 No 1mg methimazole 10 mg tablet 01-11 00:00: 00 No 2mg propranolol 60 mg tablet 01-11 00:00: 00 No 1mg Zofran 4 mg tablet 01-11 00:00: 00 Yes 1mg [facility] propranolol 10 mg tablet 01-11 00:00: 00 Yes 1mg [facility] methimazole 10 mg tablet 01-11 00:00: 00 Yes 1mg [facility] propranolol 60 mg tablet 01-11 00:00: 00 Yes 1mg [facility] propranoloL 60 mg tablet 12-03 00:00: 00 Yes [id number] 60mg Take 1 tablet by mouth 2 (two) times daily. [facility] methIMAzole 10 mg tablet 12-03 00:00: 00 Yes [id number] 20mg Take 2 tablets by mouth daily. [facility] propranoloL 60 mg tablet 12-02 00:00: 00 11-01 00:00 :00 No [id number] 60mg Take 1 tablet by mouth 2 (two) times daily. [facility] ondansetron (ZOFRAN ODT) 4 mg disintegrat ing tablet 12-02 00:00: 00 12-21 00:00 :00 No [id number] 4mg Take 1 tablet by mouth every 6 (six) hours as needed for Nausea and Vomiting (N/V). [facility] [employer] Supervisor a 150 mg/mL intramuscul ar syringe [employer] Supervisor a 150 mg/mL intramuscul ar syringe No Depo-Prove ra 150 mg/mL intramuscu lar syringe [facility] methimazole 10 mg tablet Take 1 [...] a day by oral route. [facility] [employer] Supervisor a 150 mg/mL intramuscul ar syringe [facility] [facility] Supervisor a 150 mg/mL intramuscul ar syringe No Depo-Prove ra 150 mg/mL intramuscu lar syringe [facility] methimazole 10 mg tablet Take 1 tablet every day by oral route for 30 days. methimazole 10 mg tablet Take 1 tablet every day by oral route for 30 days. No 1 Q1D methimazol e 10 mg tablet Take 1 tablet every day by oral route for 30 days. [facility] propranolol 20 mg tablet Take 1 tablet every day by oral route for 30 days. propranolol 20 mg tablet Take 1 tablet every day by oral route for 30 days. No 1 Q1D propranolo l 20 mg tablet Take 1 tablet every day by oral route for 30 days. [facility] methimazole 10 mg tablet Take 1 tablet every day by oral route for 30 days. methimazole 10 mg tablet Take 1 tablet every day by oral route for 30 days. No 1 Q1D methimazol e 10 mg tablet Take 1 tablet every day by oral route for 30 days. [facility] Immunizations Ordered Immunization Name Filled Immunization Name Date Status Comments Source HPV9 HPV9 2023-01-09 00:00:00 Completed [facility] Moderna COVID-19 Vaccine 2021-05-13 00:00:00 Completed Moderna COVID-19 Vaccine Moderna COVID-19 Vaccine 2021-05-13 00:00:00 Completed [facility] Moderna COVID-19 Vaccine 2021-04-09 00:00:00 Completed Moderna COVID-19 Vaccine Moderna COVID-19 Vaccine 2021-04-09 00:00:00 Completed [facility] Influenza Virus Vaccine Quad .5 mL IM 6+ MO 2019-08-18 00:00:[address] [facility] HPV9 2019-08-18 00:00:[address] [facility] Influenza Virus Vaccine Quad .5 mL IM 6+ MO 2019-08-18 00:00:[address] [facility] HPV9 2019-08-18 00:00:[address] [facility] Influenza Virus Vaccine Quad .5 mL IM 6+ MO 2019-08-18 00:00:[address] [facility] HPV9 2019-08-18 00:00:[address] [facility] Influenza Virus Vaccine Quad .5 mL IM 6+ MO 2019-08-18 00:00:[address] [facility] HPV9 2019-08-18 00:00:[address] [facility] Influenza Virus Vaccine Quad .5 mL IM 6+ MO 2019-08-18 00:00:[address] [facility] HPV9 2019-08-18 00:00:[address] [facility] Influenza Virus Vaccine Quad .5 mL IM 6+ MO 2019-08-18 00:00:[address] [facility] HPV9 2019-08-18 00:00:[address] [facility] Influenza Virus Vaccine Quad .5 mL IM 6+ MO 2019-08-18 00:00:[address] [facility] HPV9 2019-08-18 00:00:[address] [facility] Influenza Virus Vaccine Quad .5 mL IM 6+ MO 2019-08-18 00:00:[address] [facility] HPV9 2019-08-18 00:00:[address] [facility] Influenza Virus Vaccine Quad .5 mL IM 6+ MO 2019-08-18 00:00:[address] [facility] HPV9 2019-08-18 00:00:[address] [facility] Influenza Virus Vaccine Quad .5 mL IM 6+ MO 2019-08-18 00:00:[address] [facility] HPV9 2019-08-18 00:00:[address] [facility] Influenza Virus Vaccine Quad .5 mL IM 6+ MO 2019-08-18 00:00:[address] [facility] HPV9 2019-08-18 00:00:[address] [facility] Influenza Virus Vaccine Quad .5 mL IM 6+ MO 2019-08-18 00:00:[address] [facility] HPV9 2019-08-18 00:00:[address] [facility] Influenza Virus Vaccine Quad .5 mL IM 6+ MO (FLUZONE/FLULAVAL/F LUARIX) 2019-08-18 00:00:[address] [facility] HPV9 2019-08-18 00:00:[address] [facility] Influenza Virus Vaccine Quad .5 mL IM 6+ MO (FLUZONE/FLULAVAL/F LUARIX) 2019-08-18 00:00:[address] [facility] HPV9 2019-08-18 00:00:[address] [facility] Influenza Virus Vaccine Quad .5 mL IM 6+ MO (FLUZONE/FLULAVAL/F LUARIX) 2019-08-18 00:00:[address] [facility] HPV9 2019-08-18 00:00:00 Completed TDAP 2019-04-26 00:00:[address] [facility] TDAP 2019-04-26 00:00:[address] [facility] TDAP 2019-04-26 00:00:[address] [facility] TDAP 2019-04-26 00:00:[address] [facility] TDAP 2019-04-26 00:00:[address] [facility] TDAP 2019-04-26 00:00:[address] [facility] TDAP 2019-04-26 00:00:[address] [facility] TDAP 2019-04-26 00:00:[address] [facility] TDAP 2019-04-26 00:00:[address] [facility] TDAP 2019-04-26 00:00:[address] [facility] TDAP 2019-04-26 00:00:[address] [facility] TDAP 2019-04-26 00:00:[address] [facility] TDAP 2019-04-26 00:00:[address] [facility] TDAP 2019-04-26 00:00:[address] [facility] TDAP 2019-04-26 00:00:[address] [facility] Influenza Virus Vaccine Quad .5 mL IM 6+ MO 2018-11-26 00:00:[address] [facility] Influenza Virus Vaccine 2018-11-26 00:00:[address] [facility] Influenza Virus Vaccine Quad .5 mL IM 6+ MO 2018-11-26 00:00:[address] [facility] Influenza Virus Vaccine 2018-11-26 00:00:[address] [facility] Influenza Virus Vaccine Quad .5 mL IM 6+ MO 2018-11-26 00:00:[address] [facility] Influenza Virus Vaccine 2018-11-26 00:00:[address] [facility] Influenza Virus Vaccine Quad .5 mL IM 6+ MO 2018-11-26 00:00:[address] [facility] Influenza Virus Vaccine 2018-11-26 00:00:[address] [facility] Influenza Virus Vaccine Quad .5 mL IM 6+ MO 2018-11-26 00:00:[address] [facility] Influenza Virus Vaccine 2018-11-26 00:00:[address] [facility] Influenza Virus Vaccine Quad .5 mL IM 6+ MO 2018-11-26 00:00:[address] [facility] Influenza Virus Vaccine 2018-11-26 00:00:[address] [facility] Influenza Virus Vaccine Quad .5 mL IM 6+ MO 2018-11-26 00:00:[address] [facility] Influenza Virus Vaccine 2018-11-26 00:00:[address] [facility] Influenza Virus Vaccine Quad .5 mL IM 6+ MO 2018-11-26 00:00:[address] [facility] Influenza Virus Vaccine 2018-11-26 00:00:[address] [facility] Influenza Virus Vaccine Quad .5 mL IM 6+ MO 2018-11-26 00:00:[address] [facility] Influenza Virus Vaccine 2018-11-26 00:00:[address] [facility] Influenza Virus Vaccine Quad .5 mL IM 6+ MO 2018-11-26 00:00:[address] [facility] Influenza Virus Vaccine 2018-11-26 00:00:[address] [facility] Influenza Virus Vaccine Quad .5 mL IM 6+ MO 2018-11-26 00:00:[address] [facility] Influenza Virus Vaccine 2018-11-26 00:00:[address] [facility] Influenza Virus Vaccine Quad .5 mL IM 6+ MO 2018-11-26 00:00:[address] [facility] Influenza Virus Vaccine 2018-11-26 00:00:[address] [facility] Influenza Virus Vaccine Quad .5 mL IM 6+ MO (FLUZONE/FLULAVAL/F LUARIX) 2018-11-26 00:00:[address] [facility] Influenza Virus Vaccine 2018-11-26 00:00:[address] [facility] Influenza Virus Vaccine Quad .5 mL IM 6+ MO (FLUZONE/FLULAVAL/F LUARIX) 2018-11-26 00:00:[address] [facility] Influenza Virus Vaccine 2018-11-26 00:00:[address] [facility] Influenza Virus Vaccine Quad .5 mL IM 6+ MO (FLUZONE/FLULAVAL/F LUARIX) 2018-11-26 00:00:[address] [facility] Influenza Virus Vaccine 2018-11-26 00:00:[address] [facility] Influenza Virus Vaccine Quad .5 mL IM 6+ MO (FLUZONE/FLULAVAL/F LUARIX) Unknown Completed [facility] Influenza Virus Vaccine Unknown Completed [facility] TDAP Unknown Completed [facility] HPV9 Unknown Completed [facility] Influenza Virus Vaccine Quad .5 mL IM 6+ MO (FLUZONE/FLULAVAL/F LUARIX) Unknown Completed [facility] Influenza Virus Vaccine Unknown Completed [facility] TDAP Unknown Completed [facility] HPV9 Unknown Completed [facility] Influenza Virus Vaccine Quad .5 mL IM 6+ MO (FLUZONE/FLULAVAL/F LUARIX) Unknown Completed [facility] Influenza Virus Vaccine Unknown Completed [facility] TDAP Unknown Completed [facility] HPV9 Unknown Completed [facility] Influenza Virus Vaccine Quad .5 mL IM 6+ MO (FLUZONE/FLULAVAL/F LUARIX) Unknown Completed [facility] Influenza Virus Vaccine Unknown Completed [facility] TDAP Unknown Completed [facility] HPV9 Unknown Completed [facility] Influenza Virus Vaccine Quad .5 mL IM 6+ MO (FLUZONE/FLULAVAL/F LUARIX) Unknown Completed [facility] Influenza Virus Vaccine Unknown Completed [facility] TDAP Unknown Completed [facility] HPV9 Unknown Completed [facility] Influenza Virus Vaccine Quad .5 mL IM 6+ MO (FLUZONE/FLULAVAL/F LUARIX) Unknown Completed [facility] Influenza Virus Vaccine Unknown Completed [facility] TDAP Unknown Completed [facility] HPV9 Unknown Completed [facility] Influenza Virus Vaccine Quad .5 mL IM 6+ MO (FLUZONE/FLULAVAL/F LUARIX) Unknown Completed [facility] Influenza Virus Vaccine Unknown Completed [facility] TDAP Unknown Completed [facility] HPV9 Unknown Completed [facility] Influenza Virus Vaccine Quad .5 mL IM 6+ MO (FLUZONE/FLULAVAL/F LUARIX) Unknown Completed [facility] Influenza Virus Vaccine Unknown Completed [facility] TDAP Unknown Completed [facility] HPV9 Unknown Completed [facility] Influenza Virus Vaccine Quad .5 mL IM 6+ MO (FLUZONE/FLULAVAL/F LUARIX) Unknown Completed [facility] Influenza Virus Vaccine Unknown Completed [facility] TDAP Unknown Completed [facility] HPV9 Unknown Completed [facility] Influenza Virus Vaccine Quad .5 mL IM 6+ MO (FLUZONE/FLULAVAL/F LUARIX) Unknown Completed [facility] Influenza Virus Vaccine Unknown Completed [facility] TDAP Unknown Completed [facility] HPV9 Unknown Completed [facility] Influenza Virus Vaccine Quad .5 mL IM 6+ MO (FLUZONE/FLULAVAL/F LUARIX) Unknown Completed [facility] Influenza Virus Vaccine Unknown Completed [facility] TDAP Unknown Completed [facility] HPV9 Unknown Completed [facility] Influenza Virus Vaccine Quad .5 mL IM 6+ MO (FLUZONE/FLULAVAL/F LUARIX) Unknown Completed [facility] Influenza Virus Vaccine Unknown Completed [facility] TDAP Unknown Completed [facility] HPV9 Unknown Completed [facility] Influenza Virus Vaccine Quad .5 mL IM 6+ MO (FLUZONE/FLULAVAL/F LUARIX) Unknown Completed [facility] Influenza Virus Vaccine Unknown Completed [facility] TDAP Unknown Completed [facility] HPV9 Unknown Completed [facility] Vital Signs Vital Name Observation Time Observation Value Comments S ource Systolic blood pressure 2024-09-04 19:42:00 100 mm[Hg] [facility] Diastolic blood pressure 2024-09-04 19:42:00 71 mm[Hg] [facility] acute hospital Heart rate 2024-09-04 19:10:00 83 /min [facility] Body temperature 2024-09-04 19:10:[address] [facility] Respiratory rate 2024-09-04 19:10:00 16 /min [facility] Body height 2024-09-04 19:10:00 149.9 cm [facility] Body weight 2024-09-04 19:10:00 75.354 kg [facility] BMI 2024-09-04 19:10:00 33.55 kg/m2 [facility] Oxygen saturation in Arterial blood by Pulse oximetry 2024-09-04 19:10:00 98 /min [facility] Systolic blood pressure 2024-06-21 01:35:00 112 mm[Hg] [facility] acute hospital Diastolic blood pressure 2024-06-21 01:35:00 74 mm[Hg] [facility] acute hospital Heart rate 2024-06-21 01:35:00 67 /min [facility] Body temperature 2024-06-21 01:35:[address] [facility] Respiratory rate 2024-06-21 01:35:00 18 /min [facility] Oxygen saturation in Arterial blood by Pulse oximetry 2024-06-21 01:35:00 96 /min [facility] acute hospital Body height 2024-06-21 00:09:00 149.9 cm [facility] Body weight 2024-06-21 00:09:00 74.345 kg [facility] BMI 2024-06-21 00:09:00 33.10 kg/m2 [facility] Systolic blood pressure 2024-05-03 22:57:00 137 mm[Hg] [facility] acute hospital Diastolic blood pressure 2024-05-03 22:57:00 82 mm[Hg] General acute hospital Heart rate 2024-05-03 22:57:00 92 /min [facility] Body temperature 2024-05-03 22:57:[address] [facility] Respiratory rate 2024-05-03 22:57:00 16 /min [facility] Body height 2024-05-03 22:57:00 149.9 cm [facility] Body weight 2024-05-03 22:57:00 74.844 kg [facility] BMI 2024-05-03 22:57:00 33.33 kg/m2 [facility] Oxygen saturation in Arterial blood by Pulse oximetry 2024-05-03 22:57:00 97 /min [facility] Systolic blood pressure 2024-03-21 05:52:00 108 mm[Hg] [facility] acute hospital Diastolic blood pressure 2024-03-21 05:52:00 77 mm[Hg] General acute hospital Heart rate 2024-03-21 05:52:00 73 /min [facility] Body temperature 2024-03-21 05:52:[address] [facility] Respiratory rate 2024-03-21 05:52:00 16 /min [facility] Oxygen saturation in Arterial blood by Pulse oximetry 2024-03-21 05:52:00 99 /min [facility] acute hospital Body height 2024-03-21 04:38:00 149.9 cm [facility] Body weight 2024-03-21 04:38:00 72.576 kg [facility] BMI 2024-03-21 04:38:00 32.32 kg/m2 [facility] Systolic blood pressure 2024-03-05 05:34:00 111 mm[Hg] [facility] acute hospital Diastolic blood pressure 2024-03-05 05:34:00 74 mm[Hg] [facility] acute hospital Heart rate 2024-03-05 05:34:00 75 /min [facility] Body temperature 2024-03-05 05:34:[address] [facility] Respiratory rate 2024-03-05 05:34:00 15 /min [facility] Oxygen saturation in Arterial blood by Pulse oximetry 2024-03-05 05:34:00 100 /min [facility] Body height 2024-03-05 02:12:00 149.9 cm [facility] Body weight 2024-03-05 02:12:00 74.39 kg [facility] BMI 2024-03-05 02:12:00 33.12 kg/m2 [facility] Systolic blood pressure 2024-02-21 00:07:00 105 mm[Hg] [facility] acute hospital Diastolic blood pressure 2024-02-21 00:07:00 72 mm[Hg] [facility] acute hospital Heart rate 2024-02-21 00:07:00 86 /min [facility] Body temperature 2024-02-21 00:07:[address] [facility] Body height 2024-02-21 00:07:00 149.9 cm [facility] Body weight 2024-02-21 00:07:00 74.39 kg [facility] BMI 2024-02-21 00:07:00 33.12 kg/m2 [facility] Oxygen saturation in Arterial blood by Pulse oximetry 2024-02-21 00:07:00 100 /min [facility] Systolic blood pressure 2023-12-15 00:21:51 121 mm[Hg] [facility] acute hospital Diastolic blood pressure 2023-12-15 00:21:51 76 mm[Hg] [facility] acute hospital Heart rate 2023-12-15 00:21:51 82 /min [facility] Body temperature 2023-12-15 00:21:[address] [facility] Respiratory rate 2023-12-15 00:21:51 16 /min [facility] Body height 2023-12-15 00:21:00 149.9 cm [facility] Body weight 2023-12-15 00:21:00 62.143 kg [facility] BMI 2023-12-15 00:21:00 27.67 kg/m2 [facility] Oxygen saturation in Arterial blood by Pulse oximetry 2023-12-15 00:21:00 98 /min [facility] Systolic blood pressure 2023-12-07 02:07:00 100 mm[Hg] [facility] acute hospital Diastolic blood pressure 2023-12-07 02:07:00 61 mm[Hg] [facility] acute hospital Heart rate 2023-12-07 02:07:00 68 /min [facility] Body temperature 2023-12-07 02:07:[address] [facility] Respiratory rate 2023-12-07 02:07:00 17 /min [facility] Body height 2023-12-07 02:07:00 149.9 cm [facility] Body weight 2023-12-07 02:07:00 76.204 kg [facility] BMI 2023-12-07 02:07:00 33.93 kg/m2 [facility] Oxygen saturation in Arterial blood by Pulse oximetry 2023-12-07 02:07:00 99 /min [facility] Systolic blood pressure 2023-10-18 18:00:00 130 mm[Hg] [facility] acute hospital Diastolic blood pressure 2023-10-18 18:00:00 80 mm[Hg] General acute hospital Heart rate 2023-10-18 18:00:00 76 /min [facility] Respiratory rate 2023-10-18 18:00:00 17 /min [facility] Oxygen saturation in Arterial blood by Pulse oximetry 2023-10-18 18:00:00 100 /min [facility] acute hospital Body temperature 2023-10-18 16:28:[address] [facility] Body height 2023-10-18 16:28:00 149.9 cm [facility] Body weight 2023-10-18 16:28:00 72.576 kg [facility] BMI 2023-10-18 16:28:00 32.32 kg/m2 [facility] Systolic blood pressure 2023-09-25 16:40:00 105 mm[Hg] [facility] acute hospital Diastolic blood pressure 2023-09-25 16:40:00 77 mm[Hg] General acute hospital Heart rate 2023-09-25 16:40:00 93 /min [facility] Body temperature 2023-09-25 16:40:[address] [facility] Respiratory rate 2023-09-25 16:40:00 18 /min [facility] Body height 2023-09-25 16:40:00 149.9 cm [facility] Body weight 2023-09-25 16:40:00 72.235 kg [facility] BMI 2023-09-25 16:40:00 32.16 kg/m2 [facility] Oxygen saturation in Arterial blood by Pulse oximetry 2023-09-25 16:40:00 100 /min [facility] acute hospital Systolic blood pressure 2023-09-14 00:51:00 104 mm[Hg] [facility] acute hospital Diastolic blood pressure 2023-09-14 00:51:00 72 mm[Hg] General acute hospital Heart rate 2023-09-14 00:51:00 95 /min [facility] Body temperature 2023-09-14 00:51:[address] [facility] Respiratory rate 2023-09-14 00:51:00 17 /min [facility] Body height 2023-09-14 00:51:00 149.9 cm [facility] Body weight 2023-09-14 00:51:00 72.576 kg [facility] BMI 2023-09-14 00:51:00 32.32 kg/m2 [facility] Oxygen saturation in Arterial blood by Pulse oximetry 2023-09-14 00:51:00 97 /min [facility] acute [facility] Systolic blood pressure 2023-07-22 17:14:08 124 mm[Hg] [facility] acute hospital Diastolic blood pressure 2023-07-22 17:14:08 83 mm[Hg] General acute hospital Heart rate 2023-07-22 17:14:08 97 /min [facility] Body temperature 2023-07-22 17:14:[address] [facility] Respiratory rate 2023-07-22 17:14:08 20 /min [facility] Body height 2023-07-22 17:13:00 149.9 cm [facility] Body weight 2023-07-22 17:13:00 71.94 kg [facility] BMI 2023-07-22 17:13:00 32.03 kg/m2 [facility] Oxygen saturation in Arterial blood by Pulse oximetry 2023-07-22 17:13:00 100 /min [facility] acute hospital Systolic blood pressure 2023-07-22 00:25:00 103 mm[Hg] [facility] acute hospital Diastolic blood pressure 2023-07-22 00:25:00 71 mm[Hg] General acute hospital Heart rate 2023-07-22 00:25:00 104 /min [facility] Body temperature 2023-07-22 00:25:[address] [facility] Respiratory rate 2023-07-22 00:25:00 16 /min [facility] Body weight 2023-07-22 00:25:00 70.308 kg Univ [facility] BMI 2023-07-22 00:25:00 31.31 kg/m2 [facility] Oxygen saturation in Arterial blood by Pulse oximetry 2023-07-22 00:25:00 97 /min [facility] acute hospital Systolic blood pressure 2023-07-05 20:52:00 111 mm[Hg] [facility] acute hospital Diastolic blood pressure 2023-07-05 20:52:00 77 mm[Hg] General acute hospital Heart rate 2023-07-05 20:52:00 90 /min [facility] Body temperature 2023-07-05 20:52:[address] [facility] Respiratory rate 2023-07-05 20:52:00 14 /min [facility] Body height 2023-07-05 20:52:00 149.9 cm [facility] Body weight 2023-07-05 20:52:00 71.442 kg [facility] BMI 2023-07-05 20:52:00 31.81 kg/m2 [facility] Oxygen saturation in Arterial blood by Pulse oximetry 2023-07-05 20:52:00 97 /min [facility] acute hospital Systolic blood pressure 2023-05-01 23:00:00 97 mm[Hg] [facility] acute hospital Diastolic blood pressure 2023-05-01 23:00:00 84 mm[Hg] General acute hospital Heart rate 2023-05-01 23:00:00 67 /min [facility] Respiratory rate 2023-05-01 23:00:00 16 /min [facility] Oxygen saturation in Arterial blood by Pulse oximetry 2023-05-01 23:00:00 99 /min [facility] acute hospital Body temperature 2023-05-01 18:55:[address] [facility] Body height 2023-05-01 18:55:00 149.9 cm [facility] Body weight 2023-05-01 18:55:00 68.04 kg [facility] BMI 2023-05-01 18:55:00 30.30 kg/m2 [facility] Systolic blood pressure 2023-01-31 12:31:00 125 mm[Hg] [facility] acute hospital Diastolic blood pressure 2023-01-31 12:31:00 83 mm[Hg] General acute hospital Heart rate 2023-01-31 12:31:00 101 /min [facility] Body temperature 2023-01-31 12:31:[address] [facility] Respiratory rate 2023-01-31 12:31:00 18 /min [facility] Body weight 2023-01-31 12:31:00 68.04 kg [facility] BMI 2023-01-31 12:31:00 30.30 kg/m2 [facility] Oxygen saturation in Arterial blood by Pulse oximetry 2023-01-31 12:31:00 99 /min [facility] acute hospital BP Diastolic 2022-12-04 00:00:00 72 mm[Hg] [facility] Height 2022-12-04 00:00:00 59 [in_i] [facility] BMI (Body Mass Index) 2022-12-04 00:00:00 33.1 kg/m2 [facility] BP Systolic 2022-12-04 00:00:00 118 mm[Hg] [facility] Body Weight 2022-12-04 00:00:00 164 [lb_av] [facility] Systolic blood pressure 2022-11-01 23:40:00 99 mm[Hg] [facility] acute hospital Diastolic blood pressure 2022-11-01 23:40:00 75 mm[Hg] General acute hospital Heart rate 2022-11-01 23:40:00 73 /min [facility] Respiratory rate 2022-11-01 23:40:00 15 /min [facility] Oxygen saturation in Arterial blood by Pulse oximetry 2022-11-01 23:40:00 99 /min [facility] acute hospital Body temperature 2022-11-01 22:06:[address] [facility] Body height 2022-11-01 22:06:00 149.9 cm [facility] Body weight 2022-11-01 22:06:00 68.04 kg [facility] BMI 2022-11-01 22:06:00 30.30 kg/m2 [facility] Systolic blood pressure 2022-10-08 08:00:00 120 mm[Hg] [facility] acute hospital Diastolic blood pressure 2022-10-08 08:00:00 84 mm[Hg] General acute hospital Heart rate 2022-10-08 08:00:00 90 /min [facility] Respiratory rate 2022-10-08 08:00:00 21 /min [facility] Oxygen saturation in Arterial blood by Pulse oximetry 2022-10-08 08:00:00 100 /min [facility] acute hospital Body temperature 2022-10-08 05:56:[address] [facility] Body height 2022-10-08 05:56:00 149.9 cm [facility] Body weight 2022-10-08 05:56:00 68.04 kg [facility] BMI 2022-10-08 05:56:00 30.30 kg/m2 [facility] Systolic blood pressure 2022-08-13 18:00:00 100 mm[Hg] [facility] acute hospital Diastolic blood pressure 2022-08-13 18:00:00 56 mm[Hg] General acute hospital Heart rate 2022-08-13 18:00:00 80 /min [facility] Respiratory rate 2022-08-13 18:00:00 13 /min [facility] Oxygen saturation in Arterial blood by Pulse oximetry 2022-08-13 18:00:00 100 /min [facility] acute hospital Body temperature 2022-08-13 16:28:[address] [facility] Body weight 2022-08-13 16:28:00 65.772 kg [facility] BMI 2022-08-13 16:28:00 29.29 kg/m2 [facility] Systolic blood pressure 2022-07-15 00:59:00 115 mm[Hg] General acute hospital Diastolic blood pressure 2022-07-15 00:59:00 73 mm[Hg] General acute hospital Heart rate 2022-07-15 00:59:00 102 /min [facility] 2022-07-15 00:59:[address] [facility] Respiratory rate 2022-07-15 00:59:00 20 /min [facility] Body height 2022-07-15 00:59:00 149.9 cm [facility] Body weight 2022-07-15 00:59:00 70.67 kg [facility] BMI 2022-07-15 00:59:00 31.47 kg/m2 [facility] Oxygen saturation in Arterial blood by Pulse oximetry 2022-07-15 00:59:00 99 /min [facility] acute hospital BP Diastolic 2022-06-12 00:00:00 60 mm[Hg] [facility] Height 2022-06-12 00:00:00 59 [in_i] [facility] BMI (Body Mass Index) 2022-06-12 00:00:00 30.9 kg/m2 [facility] BP Systolic 2022-06-12 00:00:00 104 mm[Hg] [facility] Body Weight 2022-06-12 00:00:00 153 [lb_av] [facility] Systolic blood pressure 2021-12-21 07:00:00 107 mm[Hg] [facility] acute hospital Diastolic blood pressure 2021-12-21 07:00:00 90 mm[Hg] General acute hospital Heart rate 2021-12-21 07:00:00 94 /min [facility] Oxygen saturation in Arterial blood by Pulse oximetry 2021-12-21 07:00:00 100 /min [facility] acute hospital Body temperature 2021-12-21 04:45:[address] [facility] Respiratory rate 2021-12-21 04:45:00 19 /min [facility] Body height 2021-12-21 04:45:00 157.5 cm [facility] Body weight 2021-12-21 04:45:00 67.132 kg [facility] BMI 2021-12-21 04:45:00 27.07 kg/m2 [facility] BP Diastolic 2021-12-19 00:00:00 68 mm[Hg] [facility] Height 2021-12-19 00:00:00 59 [in_i] [facility] BMI (Body Mass Index) 2021-12-19 00:00:00 30.3 kg/m2 [facility] BP Systolic 2021-12-19 00:00:00 98 mm[Hg] [facility] Body Weight 2021-12-19 00:00:00 150 [lb_av] [facility] Systolic blood pressure 2021-11-03 07:31:00 112 mm[Hg] [facility] acute hospital Diastolic blood pressure 2021-11-03 07:31:00 64 mm[Hg] General acute hospital Heart rate 2021-11-03 07:31:00 88 /min [facility] Respiratory rate 2021-11-03 07:31:00 16 /min [facility] Oxygen saturation in Arterial blood by Pulse oximetry 2021-11-03 07:31:00 100 /min [facility] acute hospital Body temperature 2021-11-03 05:48:[address] [facility] Body height 2021-11-03 05:47:00 149.9 cm [facility] Body weight 2021-11-03 05:47:00 63.504 kg [facility] BMI 2021-11-03 05:47:00 28.28 kg/m2 [facility] BP Diastolic 2021-10-14 00:00:00 58 mm[Hg] [facility] Height 2021-10-14 00:00:00 59 [in_i] [facility] BMI (Body Mass Index) 2021-10-14 00:00:00 27.3 kg/m2 [facility] BP Systolic 2021-10-14 00:00:00 124 mm[Hg] [facility] Body Weight 2021-10-14 00:00:00 135 [lb_av] [facility] Systolic blood pressure 2021-08-24 22:49:00 122 mm[Hg] General acute hospital Diastolic blood pressure 2021-08-24 22:49:00 82 mm[Hg] General acute hospital Heart rate 2021-08-24 22:49:00 117 /min [facility] Body temperature 2021-08-24 22:49:[address] [facility] Respiratory rate 2021-08-24 22:49:00 16 /min [facility] Body height 2021-08-24 22:49:00 149.9 cm [facility] Body weight 2021-08-24 22:49:00 56.246 kg [facility] BMI 2021-08-24 22:49:00 25.04 kg/m2 [facility] Oxygen saturation in Arterial blood by Pulse oximetry 2021-08-24 22:49:00 97 /min [facility] acute hospital Systolic blood pressure 2021-08-06 20:35:00 124 mm[Hg] General acute hospital Diastolic blood pressure 2021-08-06 20:35:00 74 mm[Hg] General acute hospital Heart rate 2021-08-06 20:35:00 91 /min [facility] Body temperature 2021-08-06 20:35:[address] [facility] Respiratory rate 2021-08-06 20:35:00 18 /min [facility] Body height 2021-08-06 20:35:00 149.9 cm [facility] Body weight 2021-08-06 20:35:00 56.246 kg [facility] BMI 2021-08-06 20:35:00 25.04 kg/m2 [facility] Oxygen saturation in Arterial blood by Pulse oximetry 2021-08-06 20:35:00 99 /min [facility] acute hospital Weight Measured 2024-02-03 14:17:00 164.40 pounds Garrett San Height Measured 2024-02-03 14:17:00 59.65 inches Garrett [facility] Body Temperature 2024-02-03 14:17:00 98.50 degrees Garrett F [facility] Heart Rate 2024-02-03 14:17:00 70.00 /min Celina en F [facility] Respiratory Rate 2024-02-03 14:17:00 Garrett F [facility] BP Systolic 2024-02-03 14:17:00 120 mm[Hg] Step hen [facility] BP Diastolic 2024-02-03 14:17:00 84 mm[Hg] Jd phen F [facility] BP Systolic 2023-05-06 15:07:00 112 mm[Hg] Step [facility] BP Diastolic 2023-05-06 15:07:00 68 mm[Hg] Jd phen F [facility] Weight Measured 2023-05-06 15:07:00 159.20 pounds Garrett F [facility] Height Measured 2023-05-06 15:07:00 59.65 inches Garrett [facility] Body Temperature 2023-05-06 15:07:00 98.40 degrees Garrett F [facility] Heart Rate 2023-05-06 15:07:00 93.00 /min Celina [facility] Respiratory Rate 2023-05-06 15:07:00 18.00 /min Garrett F [facility] BP Systolic 2023-03-30 15:36:00 114 mm[Hg] Step [facility] BP Diastolic 2023-03-30 15:36:00 65 mm[Hg] Jd phen F [facility] Weight Measured 2023-03-30 15:36:00 163.40 pounds Garrett F [facility] Height Measured 2023-03-30 15:36:00 59.65 inches Garrett [facility] Body Temperature 2023-03-30 15:36:00 98.00 degrees Garrett F [facility] Heart Rate 2023-03-30 15:36:00 89.00 /min Celina en [facility] Respiratory Rate 2023-03-30 15:36:00 18.00 /min Garrett F [facility] BP Systolic 2023-02-09 14:32:00 130 mm[Hg] Step hen [facility] BP Diastolic 2023-02-09 14:32:00 85 mm[Hg] Jd phen F [facility] Weight Measured 2023-02-09 14:32:00 167.20 pounds Garrett F [facility] Height Measured 2023-02-09 14:32:00 59.65 inches Garrett F [facility] Body Temperature 2023-02-09 14:32:00 98.40 degrees Garrett F [facility] Heart Rate 2023-02-09 14:32:00 90.00 /min Celina en F [facility] Respiratory Rate 2023-02-09 14:32:00 Garrett F Jas[facility] BP Systolic 2023-01-09 10:17:00 110 mm[Hg] Step hen [facility] BP Diastolic 2023-01-09 10:17:00 75 mm[Hg] Jd phen F [facility] Weight Measured 2023-01-09 10:17:00 166.40 pounds Garrett F [facility] Height Measured 2023-01-09 10:17:00 59.65 inches Garrett F [facility] Body Temperature 2023-01-09 10:17:00 98.30 degrees Garrett F J[facility] Heart Rate 2023-01-09 10:17:00 75.00 /min Celina en F [facility] Respiratory Rate 2023-01-09 10:17:00 Garrett F Jaswinder BP Systolic 2022-06-19 10:36:00 113 mm[Hg] Step hen F [facility] BP Diastolic 2022-06-19 10:36:00 74 mm[Hg] Jd phen F [facility] Weight Measured 2022-06-19 10:36:00 152.80 pounds Garrett F [facility] Height Measured 2022-06-19 10:36:00 59.65 inches Garrett F [facility] Body Temperature 2022-06-19 10:36:00 98.40 degrees Garrett F Jasw[facility] Heart Rate 2022-06-19 10:36:00 77.00 /min Celina en F [facility] Respiratory Rate 2022-06-19 10:36:00 Garrett F Jasw[facility] BP Systolic 2022-02-14 08:48:00 108 mm[Hg] Step hen F [facility] BP Diastolic 2022-02-14 08:48:00 69 mm[Hg] Jd phen F [facility] Weight Measured 2022-02-14 08:48:00 146.40 pounds Garrett F [facility] Height Measured 2022-02-14 08:48:00 59.65 inches Garrett F [facility] Body Temperature 2022-02-14 08:48:00 98.60 degrees Garrett F [facility] Heart Rate 2022-02-14 08:48:00 88.00 /min Celina en F [facility] Respiratory Rate 2022-02-14 08:48:00 Garrett F J[facility] BP Systolic 2021-10-04 09:39:00 132 mm[Hg] Step hen F [facility] BP Diastolic 2021-10-04 09:39:00 82 mm[Hg] Jd phen F [facility] Weight Measured 2021-10-04 09:39:00 133.60 pounds Garrett F [facility] Height Measured 2021-10-04 09:39:00 59.65 inches Garrett F [facility] Body Temperature 2021-10-04 09:39:00 98.10 degrees Garrett F [facility] Heart Rate 2021-10-04 09:39:00 116.00 /min Step [facility] Respiratory Rate 2021-10-04 09:39:00 Garrett F J[facility] BP Systolic 2021-07-19 08:36:00 114 mm[Hg] Step hen F [facility] BP Diastolic 2021-07-19 08:36:00 74 mm[Hg] Jd phen F [facility] Weight Measured 2021-07-19 08:36:00 121.00 pounds Garrett F [facility] Height Measured 2021-07-19 08:36:00 59.65 inches Garrett F [facility] Body Temperature 2021-07-19 08:36:00 98.30 degrees Garrett F [facility] Heart Rate 2021-07-19 08:36:00 123.00 /min Step [facility] Respiratory Rate 2021-07-19 08:36:00 17.00 /min Garrett F [facility] BP Systolic 2021-07-16 08:36:00 120 mm[Hg] Step hen [facility] BP Diastolic 2021-07-16 08:36:00 78 mm[Hg] Jd phen F [facility] Weight Measured 2021-07-16 08:36:00 121.40 pounds Garrett F [facility] Height Measured 2021-07-16 08:36:00 59.65 inches Garrett [facility] Body Temperature 2021-07-16 08:36:00 98.30 degrees Garrett F [facility] Heart Rate 2021-07-16 08:36:00 Celina en F [facility] Respiratory Rate 2021-07-16 08:36:00 118.00 /min Garrett F [facility] Weight Measured 2021-04-25 14:08:00 121.20 pounds Height [...] Date / Time Performed Performing Clinician Source POCT MOLECULAR RSV 2024-09-04 19:20:00 Unknown, Attend emilio [facility] POCT MOLECULAR STREP 2024-09-04 19:19:00 Unknown, Attmaryan luque [facility] POCT TEST 2024-06-21 00:42:[address] [facility] LIPASE 2024-06-21 00:29:00 Jesusita Beaulieu [facility] COMP. METABOLIC PANEL ([id number]) 2024-06-21 00:29:[address] [facility] CBC WITH DIFF 2024-06-21 00:29:00 Jesusita Beaulieu [facility] POCT MOLECULAR STREP 2024-05-03 22:55:00 Unknown, Renae luque [facility] XR LUMBAR SPINE 3 VW 2024-03-05 04:32:[address] [facility] POCT TEST 2024-03-05 03:01:[address] [facility] URINALYSIS 2024-03-05 02:56:00 Mami Shabazz [facility] POCT TEST 2023-12-15 00:45:[address] [facility] POCT MOLECULAR STREP 2023-12-07 02:10:00 Unknown, Renae luque [facility] XR CHEST 1 VW 2023-10-18 17:56:10 Lydia Tyler [facility] CREATINE KINASE 2023-10-18 16:51:00 Lydia Tyler [facility] LIPASE 2023-10-18 16:51:00 [facility]23-10-18 16:51:00 Poppy Lydia [facility] TEST, SERUM 2023-10-18 16:51:00 Shalom Tyler [facility] TROPONIN I 2023-10-18 16:51:00 Poppy [facility] THYROID STIMULATING HORMONE 2023-10-18 16:51:00 Poppy [facility] COMP. METABOLIC PANEL ([id number]) 2023-10-18 16:51:00 [facility] CBC WITH DIFF 2023-10-18 16:51:00 Poppy [facility] RAPID INFLUENZA A/B 2023-10-18 16:48:00 [facility] COVID-19 (ID NOW RAPID TESTING) 2023-10-18 16:48:00 [facility] CONSENT/REFUSAL FOR DIAGNOSIS AND TREATMENT 2023-10-18 16:23:40 Doctor Unassigned, [place] [facility] POCT SARS-COV-2 ANTIGEN (BINAX NOW) 2023-09-25 16:59:[address] [facility] POCT MOLECULAR FLU 2023-09-25 16:49:00 Unknown, Attend ing [facility] POCT MOLECULAR STREP 2023-09-25 16:47:00 Unknown, Attmaryan luque [facility] XR FOOT 3+ VW LEFT 2023-09-14 01:12:23 Meagan Monteiro [facility] XR CHEST 1 VW 2023-07-22 17:58:35 Peter Minor [facility] CONSENT/REFUSAL FOR DIAGNOSIS AND TREATMENT 2023-07-22 16:53:37 Doctor Unassigned, [place] [facility] POCT MOLECULAR STREP 2023-07-22 00:24:00 Unknown, Atte ene [facility] POCT SARS-COV-2 ANTIGEN (BINAX NOW) 2023-07-22 00:16:[address] [facility] ASSIGNMENT OF BENEFITS 2023-07-05 20:47:23 Docto r Unassigned, [place] [facility] CT ANGIOGRAM HEAD 2023-05-01 20:35:[address] [facility] CT ANGIOGRAM NECK 2023-05-01 20:35:[address] [facility] CT HEAD WO CONTRAST 2023-05-01 20:34:[address] [facility] TROPONIN I 2023-05-01 19:35:00 Karissa Fox [facility] [place] FREE T4 2023-05-01 19:35:00 Karissa Fox [facility] COMP. METABOLIC PANEL ([id number]) 2023-05-01 19:35:[address] [facility] CBC WITH DIFF 2023-05-01 19:35:00 Karissa Fox [facility] PROTHROMBIN TIME / INR 2023-05-01 19:35:[address] [facility] ACTIVATED PARTIAL THRMPLAS HUMERA 2023-05-01 19:35:[address] [facility] URINALYSIS 2023-05-01 19:35:00 Karissa Fox [facility] N-TERMINAL PRO-BNP 2023-05-01 19:35:[address] [facility] URINE DRUG (IMMUNOASSAY) - COMPREHENSIVE DRUG SCREEN W/O REFLEX 2023-05-01 19:35:[address] [facility] POCT TEST 2023-05-01 19:25:[address] [facility] CONSENT/REFUSAL FOR DIAGNOSIS AND TREATMENT 2023-05-01 18:47:06 Doctor Unassigned, [place] [facility] POCT TEST 2023-01-31 12:38:00 Nona Dean ra [facility] URINALYSIS 2023-01-31 12:36:00 Doris Dean [facility] NOTICE OF PRIVACY PRACTICES 2023-01-31 12:29:08 Doctor Unassigned, [place] [facility] CONSENT/REFUSAL FOR DIAGNOSIS AND TREATMENT 2023-01-31 12:28:05 Doctor Unassigned, [place] [facility] EKG-12 LEAD 2022-11-02 00:42:13 Mami Shabazz [facility] XR CHEST 1 VW 2022-11-01 22:59:32 Mami Shabazz [facility] LIPASE 2022-11-01 22:27:00 Mami Shabazz [facility] TEST, SERUM 2022-11-01 22:27:[address] [facility] TROPONIN I 2022-11-01 22:27:00 Mami Shabazz [facility] THYROID STIMULATING HORMONE 2022-11-01 22:27:[address] [facility] COMP. METABOLIC PANEL ([id number]) 2022-11-01 22:27:[address] [facility] CBC WITH DIFF 2022-11-01 22:27:00 Mami Shabazz [facility] N-TERMINAL PRO-BNP 2022-11-01 22:27:[address] [facility] POCT TEST 2022-10-08 06:35:[address] [facility] XR CHEST 1 VW 2022-10-08 06:34:[address] [facility] URINALYSIS 2022-10-08 06:21:00 Pawan Estrella [facility] LIPASE 2022-10-08 06:16:00 Pawan Estrella [facility] TROPONIN I 2022-10-08 06:16:00 Pawan Estrella [facility] FREE T4 2022-10-08 06:16:00 Pawan Estrella [facility] THYROID STIMULATING HORMONE 2022-10-08 06:16:[address] [facility] COMP. METABOLIC PANEL ([id number]) 2022-10-08 06:16:[address] [facility] CBC WITH DIFF 2022-10-08 06:16:[address] [facility] CONSENT/REFUSAL FOR DIAGNOSIS AND TREATMENT 2022-10-08 05:45:45 Doctor Unassigned, [place] [facility] CT ABDOMEN PELVIS W CONTRAST 2022-08-13 17:41:[address] [facility] POCT TEST 2022-08-13 17:11:[address] [facility] LIPASE 2022-08-13 17:00:00 Pawan Estrella [facility] MAGNESIUM 2022-08-13 17:00:00 Pawan Estrella [facility] COMP. METABOLIC PANEL ([id number]) 2022-08-13 17:00:[address] [facility] CBC WITH DIFF 2022-08-13 17:00:[address] [facility] URINALYSIS 2022-08-13 17:00:00 Pawan Estrella [facility] CONSENT/REFUSAL FOR DIAGNOSIS AND TREATMENT 2022-08-13 16:17:17 Doctor Unassigned, [place] [facility] RAPID STREP SCREEN FOR GROUP A 2022-07-15 01:04:[address] [facility] RAPID INFLUENZA A/B 2022-07-15 01:04:[address] [facility] COVID-19 (ID NOW RAPID TESTING) 2022-07-15 01:04:[address] [facility] CONSENT/REFUSAL FOR DIAGNOSIS AND TREATMENT 2022-07-15 00:41:47 Doctor Unassigned, [place] [facility] URINALYSIS 2021-12-21 05:56:00 [facility] 2021-12-21 05:54:00 Nona Dean ra [facility] MAGNESIUM 2021-12-21 05:06:00 [facility]. METABOLIC PANEL ([id number]) 2021-12-21 05:06:[address] [facility] CBC WITH DIFF 2021-12-21 05:06:00 Doris Dean [facility] NOTICE OF PRIVACY PRACTICES 2021-12-21 04:36:43 Doctor Unassigned, [place] [facility] CONSENT/REFUSAL FOR DIAGNOSIS AND TREATMENT 2021-12-21 04:35:34 Doctor Unassigned, [place] [facility] XR CHEST 1 VW 2021-11-03 06:22:30 Nerissa Ely [facility] POCT TEST 2021-11-03 06:19:[address] [facility] URINALYSIS 2021-11-03 06:17[facility]-11-03 [facility]16[facility] 2021-11-03 06:03:00 [facility] COMP. METABOLIC PANEL (04178) 2021-11-03 06:03:[address] [facility] CBC WITH DIFF 2021-11-03 06:03:00 Nerissa Ely [facility] N-TERMINAL PRO-BNP 2021-11-03 06:03:[address] [facility] COVID-19 (ID NOW RAPID TESTING) 2021-11-03 06:02:[address] [facility] CONSENT/REFUSAL FOR DIAGNOSIS AND TREATMENT 2021-11-03 05:41:29 Doctor Unassigned, [place] [facility] CONSENT/REFUSAL FOR DIAGNOSIS AND TREATMENT 2021-08-24 22:45:48 Doctor Unassigned, [place] [facility] Plan of Care Planned Activity Planned Date Details Comments Source Diagnostic Test Pending 2022-12-04 00:00:00 Grapefruit IgE Ab [Units/volume] in Serum [code = 6131-7] [facility] P[facility] 2022-12-04 00:00:00 Pyridoxine congeners [Mass/volume] in Serum or Plasma [code = 2901-7] [facility] Pending 2022-12-04 00:00:00 Sodium [...] Plan of Care Not e [code = 40338-4] Goal Plan of Care Not e [code = 90136-6] Goal Plan of Care Not e [code = 62351-1] Goal Plan of Care Not e [code = 15985-4] Goal Plan of Care Not e [code = 97921-3] Goal Plan of Care Not e [code = 31072-3] Goal Plan of Care Not e [code = 11094-6] Goal Plan of Care Not e [code = 54674-2] Goal Plan of Care Not e [code = 22953-8] Goal Plan of Care Not e [code = 79614-2] Goal Plan of Care Not e [code = 52221-7] Goal Plan of Care Not e [code = 04822-2] Goal Plan of Care Not e [code = 98855-5] Goal Plan of Care Not e [code = 58634-1] Goal Plan of Care Not e [code = 16821-3] Goal Plan of Care Not e [code = 33225-8] Instructions [facility] En[facility] Start Date/Time End Date/Time Encounter Type Admission Type Attending Clinicians Care Facility Care Department Encounter ID Source 2022-07-17 13:34:02 Outpatient CHW JOSEW [id number] [facility] 2021-08-19 20:26:01 Emergency [facility] [id number] [facility] 2021-08-18 22:27:08 Emergency [facility] [id number] [facility] 2021-08-18 01:47:18 Emergency [facility] [id number] [facility] it[facility] 2021-08-17 23:40:45 Emergency [facility] [id number] [facility] ity [facility] 2021-08-17 23:13:41 Emergency [facility] [id number] [facility] ity [facility] 2021-08-16 23:43:08 Emergency [facility] [id number] [facility] it[facility] 2021-08-16 18:44:42 Emergency [facility] [id number] [facility] ity [facility] 2021-08-16 11:57:07 Emergency [facility] [id number] [facility] 2021-08-15 10:54:31 Emergency [facility] [id number] [facility] 2024-09-04 12:40:00 2024-09-04 13:56:25 Outpatient R STEPHANIA NIX [facility] [id number] [facility] 2024-09-04 12:40:00 2024-09-04 13:56:25 Urgent Care Stephania Nix Unknown, Attending [facility] MEDICAL OFFICE BUILDING 1..840.114 350.1.13.10 4.2.7.2.686 [id number] [facility] it[facility] 2024-06-20 19:12:00 2024-06-20 20:41:00 Emergency X BRITTNEEJESUSITA WAKILI [facility] ERT [id number] [facility] it[facility] 2024-06-20 19:12:00 2024-06-20 20:41:00 Emergency Brittnee Afsanehjulia Crenshaw [facility] AT [facility] 1..840.114 350.1.13.10 4.2.7.2.686 [id number] [facility] it[facility] 2024-05-03 17:40:00 2024-05-03 18:12:08 Outpatient REENA BELCHER [facility] [id number] [facility] 2024-05-03 17:40:00 2024-05-03 18:00:00 Urgent Care Reena Adamson Unknown, Attending [facility] MED[facility] OFF[facility] BUILDING 1..840.114 350.1.13.10 4.2.7.2.686 [id number] [facility] 2024-03-20 23:44:00 2024-03-21 01:03:00 Emergency X DORIS DEAN DORIS [facility] ERT [id number] [facility] 2024-03-20 23:44:00 2024-03-21 01:03:00 Emergency Doris Dean [facility] 1..840.114 350.1.13.10 4.2.7.2.686 [id number] [facility] 2024-03-04 21:15:00 2024-03-05 00:41:00 Emergency X MAMI SHABAZZ PAMALA [facility] ERT [id number] [facility] 2024-03-04 21:15:00 2024-03-05 00:41:00 Emergency Mami Shabazz G [facility] 1..840.114 350.1.13.10 4.2.7.2.686 [id number] [facility] 2024-02-20 19:00:00 2024-02-20 19:23:25 Outpatient R SOBIA SLOAN [facility] [id number] [facility] 2024-02-20 19:00:00 2024-02-20 19:20:00 Urgent Care Sobia Sloan Unknown, Attending [facility] MEDICAL OFFICE BUILDING 1..840.114 350.1.13.10 4.2.7.2.686 [id number] [facility] 2024-02-03 14:13:29 2024-02-03 14:13:29 Outpatient [facility] [id number] [facility] San 2024-02-03 00:00:00 2024-02-03 00:00:00 Outpatient Visit [facility] [id number] [facility] 2023-12-14 18:23:00 2023-12-14 19:59:00 Emergency MUNDO YANES [facility] ERT [id number] [facility] 2023-12-14 18:23:00 2023-12-14 19:59:00 Emergency Mundo Chamorro T [facility] .2.840.114 350.1.13.10 4.2.7.2.686 [id number] [facility] 2023-12-12 00:00:00 2023-12-12 00:00:00 Outpatient GC_TEG_Bocc alandro_C PRIV PRIV [id number] [facility] 2023-12-06 20:00:00 2023-12-06 20:23:01 Outpatient STEPHANIA SRINIVASAN [facility] [id number] [facility] 2023-12-06 20:00:00 2023-12-06 20:23:01 Urgent Care Stephania Nix Unknown, Attending [facility] MEDICAL OFFICE BUILDING 1.2.840.114 350.1.13.10 4.2.7.2.686 [id number] [facility] 2023-11-13 00:00:00 2023-11-13 00:00:00 Outpatient GC_TEG_Bocc alandro_C PRIV PRIV [id number] [facility] 2023-10-18 10:36:00 2023-10-18 12:26:00 Emergency LYDIA BALBUENA [facility] ERT [id number] [facility] 2023-10-18 10:36:00 2023-10-18 12:26:00 Emergency Lydia Tyler [facility] 1.84.114 350.1.13.10 4.2.7.2.686 [id number] [facility] 2023-10-15 00:00:00 2023-10-15 00:00:00 Outpatient GC_TEG_Bocc alandro_C PRIV [facility] [id number] [facility] 2023-09-25 10:00:00 2023-09-25 10:20:00 Urgent Care Lorena Soler Unknown, Attending [facility] MEDICAL OFFICE BUILDING 1.84.114 350.1.13.10 4.2.7.2.686 [id number] [facility] 2023-09-25 10:00:00 2023-09-25 10:00:00 Outpatient R LORENA SOLER [facility] [id number] [facility] 2023-09-13 18:59:45 2023-09-13 23:59:00 Outpatient R JACKI MONTEIRO [facility] [id number] [facility] 2023-09-13 18:59:45 2023-09-13 23:59:00 Hospital Encounter Jacki Monteiro [facility] MEDICAL OFFICE BUILDING 1.84.114 350.1.13.10 4.2.7.2.686 [id number] [facility] 2023-09-13 18:40:00 2023-09-13 19:19:33 Urgent Care Jacki Monteiro Unknown, Attending [facility] MEDICAL OFFICE BUILDING 1.84.114 350.1.13.10 4.2.7.2.686 [id number] [facility] 2023-07-22 12:15:00 2023-07-22 14:32:00 Emergency X PETER MINOR [facility] ERT [id number] [facility] 2023-07-22 12:15:00 2023-07-22 14:32:00 Emergency Peter Minor [facility] 1.2840.114 350.1.13.10 4.2.7.2.686 [id number] [facility] 2023-07-21 19:20:00 2023-07-21 19:26:44 Outpatient R LORENA SOLER [facility] [id number] [facility] 2023-07-21 19:20:00 2023-07-21 19:26:44 Urgent Care Lorena Soler Unknown, Attending [facility] MEDICAL OFFICE BUILDING 1.840.114 350.1.13.10 4.2.7.2.686 [id number] [facility] 2023-07-05 15:40:00 2023-07-05 17:00:55 Outpatient R JACKI MONTEIRO [facility] [id number] [facility] 2023-07-05 15:40:00 2023-07-05 17:00:55 Urgent Care Jacki Monteiro Unknown, Attending [facility] MEDICAL OFFICE BUILDING 1.840.114 350.1.13.10 4.2.7.2.686 [id number] [facility] 2023-07-05 00:00:00 2023-07-05 00:00:00 Orders Only Doctor Unassigned, [place] [facility] 1.84.114 350.1.13.10 4.2.7.2.686 [id number] [facility] 2023-06-11 00:00:00 2023-06-11 00:00:00 Outpatient GC_TEG_Bocc alandro_C PRIV [facility] [id number] [facility] 2023-06-11 00:00:00 2023-06-11 00:00:00 Outpatient GC_TEG_Bocc alandro_C PRIV PRIV [id number] [facility] 2023-05-06 15:02:08 2023-05-06 15:02:08 Outpatient [facility] [id number] [facility] 2023-05-01 13:58:00 2023-05-01 18:32:00 Emergency X FOXCLARENCEKARISSA [facility] ERT [id number] [facility] 2023-05-01 13:58:00 2023-05-01 18:32:00 Emergency FoxClarenceKarissa [facility] 1.2.840.114 350.1.13.10 4.2.7.2.686 [id number] [facility] 2023-04-28 00:00:00 2023-04-28 00:00:00 Outpatient GC_TEG_Bocc alandro_C PRIV PRIV [id number] [facility] 2023-04-27 00:00:00 2023-04-27 00:00:00 Outpatient GC_TEG_Bocc alandro_C PRIV PRIV [id number] [facility] 2023-03-30 15:31:40 2023-03-30 15:31:40 Outpatient [facility] [id number] [facility] San 2023-03-01 00:00:00 2023-03-01 00:00:00 Outpatient GC_TEG_Bocc alandro_C PRIV PRIV [id number] [facility] 2023-03-01 00:00:00 2023-03-01 00:00:00 Outpatient GC_TEG_Bocc alandro_C PRIV PRIV [id number] [facility] 2023-02-09 14:26:37 2023-02-09 14:26:37 Outpatient [facility] [id number] [facility] San 2023-02-01 00:00:00 2023-02-01 00:00:00 Outpatient GC_TEG_Bocc alandro_C PRIV PRIV [id number] [facility] 2023-01-31 07:40:00 2023-01-31 08:57:00 Emergency X DORIS DEAN [facility] ERT [id number] [facility] 2023-01-31 07:40:00 2023-01-31 08:57:00 Emergency Doris Dean [facility] 1..840.114 350.1.13.10 4.2.7.2.686 [id number] [facility] 2023-01-31 00:00:00 2023-01-31 00:00:00 Orders Only Doctor Unassigned, [place] [facility] 1..840.114 350.1.13.10 4.2.7.2.686 [id number] [facility] 2023-01-09 11:08:41 2023-01-09 11:08:41 Outpatient [facility]FA [facility] [id number] [facility] 2023-01-09 00:00:00 2023-01-09 00:00:00 Outpatient Visit [facility] [id number] [facility] 2023-01-04 00:00:00 2023-01-04 00:00:00 Outpatient GC_TEG_Bocc alandro_C PRIV PRIV [id number] [facility] 2022-12-04 00:00:00 2022-12-04 00:00:00 Outpatient GC_TEG_Bocc alandro_C PRIV PRIV [id number] [facility] 2022-12-04 00:00:00 2022-12-04 00:00:00 Keri Bernard MD: [address] [facility], [facility] [address], [place] [address] , Ph. [phone] [facility] - GC_TEG_Fann in Office [id number] [facility] 2022-11-19 13:24:46 2022-11-19 13:24:46 Outpatient [facility] [id number] [facility] 2022-11-01 15:54:00 2022-11-01 18:51:00 Emergency X MAMI SHABAZZ [facility] ERT [id number] [facility] 2022-11-01 15:54:00 2022-11-01 18:51:00 Emergency Mami Shabazz [facility] 1.2.840.114 350.1.13.10 4.2.7.2.686 [id number] [facility] 2022-10-14 10:30:00 2022-10-14 10:30:00 Outpatient Shani JO KENT [facility] [id number] [facility] 2022-10-07 23:50:00 2022-10-08 02:56:00 Emergency X PAWAN ESTRELLA [facility] ERT [id number] [facility] 2022-10-07 23:50:00 2022-10-08 02:56:00 Emergency Pawan Estrella [facility] 1.2.840.114 350.1.13.10 4.2.7.2.686 [id number] [facility] 2022-08-18 00:00:00 2022-08-18 00:00:00 Outpatient GC_TEG_Bocc alandro_C PRIV [facility] [id number] [facility] 2022-08-13 11:30:00 2022-08-13 14:17:00 Emergency X PAWAN ESTRELLA [facility] ERT [id number] [facility] 2022-08-13 11:30:00 2022-08-13 14:17:00 Emergency Pawan Estrella [facility] 1.2.840.114 350.1.13.10 4.2.7.2.686 [id number] [facility] 2022-07-14 20:07:00 2022-07-14 21:01:00 Emergency X JESUSITA BEUALIEU [facility] ERT [id number] [facility] 2022-07-14 20:07:00 2022-07-14 21:01:00 Emergency Jesusita Beaulieu [facility] 1.2.840.114 350.1.13.10 4.2.7.2.686 [id number] [facility] 2022-07-14 00:00:00 2022-07-14 00:00:00 Orders Only Doctor Unassigned, [place] [facility] 1.2.840.114 350.1.13.10 4.2.7.2.686 [id number] [facility] 2022-06-23 00:00:00 2022-06-23 00:00:00 Outpatient GC_TEG_Bocc alandro_C PRIV PRIV [id number] [facility] 2022-06-19 00:00:00 2022-06-19 00:00:00 Outpatient Visit [id number] 2022-06-12 00:00:00 2022-06-12 00:00:00 Outpatient GC_TEG_Bocc alandro_C PRIV PRIV [id number] [facility] 2022-06-12 00:00:00 2022-06-12 00:00:00 Outpatient Keri Bernard [facility] PRIV [id number] 2022-06-12 00:00:00 2022-06-12 00:00:00 Keri Bernard MD: [address] [facility], [address], [place] [address] , Ph. [phone] [facility] - GC_TEG_Jassonn in Office [id number] [facility] 2022-06-10 00:00:00 2022-06-10 00:00:00 Outpatient GC_TEG_Bocc alandro_C PRIV PRIV [id number] [facility] 2022-04-20 01:17:00 2022-04-20 01:17:00 Outpatient GC_TEG_Bocc alandro_C PRIV PRIV [id number] [facility] 2022-03-23 12:58:00 2022-03-23 12:58:00 Outpatient GC_TEG_Bocc alandro_C PRIV PRIV [id number] [facility] 2022-02-24 01:30:00 2022-02-24 01:30:00 Outpatient GC_TEG_Bocc alandro_C PRIV PRIV [id number] [facility] 2022-02-10 11:16:00 2022-02-10 11:16:00 Outpatient GC_TEG_Bocc alandro_C PRIV PRIV [id number] [facility] 2021-12-20 22:51:00 2021-12-21 01:26:00 Emergency X DORIS DEAN [facility] ERT [id number] [facility] 2021-12-20 22:51:00 2021-12-21 01:26:00 Emergency Doris Dean [facility] 1.2.840.114 350.1.13.10 4.2.7.2.686 [id number] [facility] 2021-12-19 11:30:00 2021-12-19 11:30:00 Outpatient GC_TEG_Bocc alandro_C PRIV PRIV [id number] [facility] 2021-12-19 00:00:00 2021-12-19 00:00:00 Outpatient Keri Bernard PRIV PRIV [id number] 2021-12-19 00:00:00 2021-12-19 00:00:00 Keri Bernard MD: [address] [place] [address], [address] [address] , Ph. [phone] [facility] - GC_TEG_Fann in Office [id number] [facility] 2021-12-18 12:25:00 2021-12-18 12:25:00 Outpatient GC_TEG_Bocc alandro_C [facility] PRIV [id number] [facility] 2021-11-02 23:53:00 2021-11-03 02:00:00 Emergency X NERISSA ELY [facility] ERT [id number] [facility] 2021-11-02 23:53:00 2021-11-03 02:00:00 Emergency Nerissa Ely [facility] 1.2.840.114 350.1.13.10 4.2.7.2.686 [id number] [facility] 2021-10-14 09:37:00 2021-10-14 09:37:00 Outpatient GC_TEG_Bocc alandro_C [facility] [id number] [facility] 2021-10-14 00:00:00 2021-10-14 00:00:00 Keri Bernard MD: [address] [address] , Ph. [phone] [facility] - GC_TEG_Fann in Office [id number] [facility] 2021-10-14 00:00:00 2021-10-14 00:00:00 Outpatient Keri Bernard [facility] [id number] 2021-10-02 01:03:00 2021-10-02 01:03:00 Outpatient GC_TEG_Bocc alandro_C [facility] PRIV [id number] [facility] 2021-08-24 17:53:00 2021-08-24 18:39:00 Emergency X MAMI SHABAZZ [facility] ERT [id number] [facility] 2021-08-24 17:53:00 2021-08-24 18:39:00 Emergency Mami Shabazz [facility] 1.2.840.114 350.1.13.10 4.2.7.2.686 [id number] [facility] 2021-08-06 15:22:10 2021-08-06 17:04:27 Office Visit Elena Noel [facility] 1.2.840.114 350.1.13.10 4.2.7.2.686 [id number] [facility] 2021-08-06 15:30:00 2021-08-06 15:30:00 Outpatient R ELENA NOEL [facility] [id number] [facility] 2021-07-09 15:29:18 2021-07-09 16:17:25 Office Visit Elena Noel [facility] 1.2.840.114 350.1.13.10 4.2.7.2.686 [id number] [facility] 2021-07-09 15:30:00 2021-07-09 15:30:00 Outpatient R ELENA NOEL [facility] [id number] [facility] 2021-07-09 00:00:00 2021-07-09 00:00:00 Letter (Out) Elena Noel [facility] 1.2.840.114 350.1.13.10 4.2.7.2.686 [id number] [facility] 2021-07-01 00:00:00 2021-07-01 00:00:00 Telephone Elena Noel [facility] 1.2.840.114 350.1.13.10 4.2.7.2.686 [id number] [facility] 2021-06-25 00:00:00 2021-06-25 00:00:00 Transition of Care Tasneem Herman 1.2.840.114 350.1.13.10 4.2.7.2.686 [id number] [facility] 2021-06-25 00:00:00 2021-06-25 00:00:00 Telephone Elena Noel [facility] 1.2.840.114 350.1.13.10 4.2.7.2.686 [id number] [facility] 2021-06-22 01:27:00 2021-06-22 19:45:00 Hospital Encounter Hunter Martinez [facility] 1.2.840.114 350.1.13.10 4.2.7.2.686 [id number] [facility] 2021-06-22 10:00:00 2021-06-22 13:31:00 Surgery Tate Zamorano [facility] 1.2.840.114 350.1.13.10 4.2.7.2.686 [id number] [facility] 2021-06-22 00:00:00 2021-06-22 00:00:00 Orders Only Doctor Unassigned, [place] [facility] 1.2.840.114 350.1.13.10 4.2.7.2.686 [id number] [facility] 2021-06-20 17:55:00 2021-06-20 17:55:00 Outpatient R [facility] [id number] [facility] 2021-03-19 14:31:00 2021-03-19 16:24:00 Emergency Jodi Salgado [facility] 1.2.840.114 350.1.13.10 4.2.7.2.686 [id number] [facility] 2021-02-22 00:35:00 2021-02-22 03:11:00 Emergency Peter Minor [facility] 1.284.114 350.1.13.10 4.2.7.2.686 [id number] [facility] 2021-02-22 00:35:00 2021-02-22 03:11:00 Emergency X PETER MINOR [facility] ERT [id number] [facility] 2021-01-08 00:00:00 2021-01-08 00:00:00 Patient Outreach Kyle Pascual [facility] 1.84.114 350.1.13.10 4.2.7.2.686 [id number] [facility] 2020-12-24 09:30:00 2020-12-24 09:30:00 Outpatient SRINATH MADISON [facility] [id number] [facility] 2020-12-14 18:28:00 2020-12-14 21:29:00 Emergency Sarah Frost [facility] 1.284.114 350.1.13.10 4.2.7.2.686 [id number] [facility] 2020-12-10 08:15:00 2020-12-10 08:15:00 Outpatient OTF DIOP [facility] [id number] [facility] 2020-12-03 20:53:00 2020-12-03 22:14:00 Emergency Katie Tran [facility] 1.84.114 350.1.13.10 4.2.7.2.686 [id number] [facility] 2020-12-03 00:00:00 2020-12-03 00:00:00 Orders Only Doctor Unassigned, [place] [facility] 1.2.840.114 350.1.13.10 4.2.7.2.686 [id number] [facility] 2020-11-29 20:13:00 2020-12-02 12:20:00 Hospital Encounter Ruddy, Karissa Strauss, Cinthya Fox, Karissa Rosario, Balaji [facility] 1.2840.114 350.1.13.10 4.2.7.2.686 [id number] [facility] 2020-11-29 00:00:00 2020-11-29 00:00:00 Orders Only Doctor Unassigned, [place] [facility] 1.20.114 350.1.13.10 4.2.7.2.686 [id number] [facility] 2020-09-25 18:31:00 2020-09-25 20:56:00 Emergency Jodi Salgado [facility] 1.2840.114 350.1.13.10 4.2.7.2.686 [id number] 2020-09-25 18:31:00 2020-09-25 20:56:00 Emergency X JODI SALGADO [facility] ERT [id number] [facility] 2020-09-25 18:31:00 2020-09-25 20:56:00 Emergency Veronica Jodi [facility] 1.20.114 350.1.13.10 4.2.7.2.686 [id number] [facility] 2020-09-25 00:00:00 2020-09-25 00:00:00 Orders Only Doctor Unassigned, [place] [facility] 1.2840.114 350.1.13.10 4.2.7.2.686 [id number] 2020-09-25 00:00:00 2020-09-25 00:00:00 Orders Only Doctor Unassigned, [place] [facility] 1.2.840.114 350.1.13.10 4.2.7.2.686 [id number] [id number] [facility] 2020-08-22 00:00:00 2020-08-22 00:00:00 Orders Only Doctor Unassigned, [place] [facility] 1.2.840.114 350.1.13.10 4.2.7.2.686 [id number] 009 [id number] 2020-08-22 00:00:00 2020-08-22 00:00:00 Orders Only Doctor Unassigned, [place] [facility] 1.2.840.114 350.1.13.10 4.2.7.2.686 [id number] 009 [id number] [facility] 2020-08-06 12:16:00 2020-08-06 14:18:00 Emergency Nona Deanra Chandrakant [facility] 1.2.840.114 350.1.13.10 4.2.7.2.686 [id number] 084 [id number] 2020-08-06 12:16:00 2020-08-06 14:18:00 Emergency Doris Dean [facility] 1.2.840.114 350.1.13.10 4.2.7.2.686 [id number] 084 [id number] [facility] 2020-07-12 08:30:00 2020-07-12 08:30:00 Outpatient CATHLEEN BAXTER [facility] [id number] [facility] 2020-07-10 09:03:00 2020-07-10 10:00:00 Emergency Peter Minor [facility] 1.2.840.114 350.1.13.10 4.2.7.2.686 [id number] 084 [id number] 2020-07-10 09:03:00 2020-07-10 10:00:00 Emergency Peter Minor [facility] 1.2.840.114 350.1.13.10 4.2.7.2.686 [id number] 084 [id number] [facility] 2020-07-10 00:00:00 2020-07-10 00:00:00 Orders Only Doctor Unassigned, [place] [facility] 1.2.840.114 350.1.13.10 4.2.7.2.686 [id number] 009 [id number] 2020-07-10 00:00:00 2020-07-10 00:00:00 Orders Only Doctor Unassigned, [place] [facility] 1.2.840.114 350.1.13.10 4.2.7.2.686 [id number] 009 [id number] [facility] 2020-05-29 21:53:00 2020-05-29 23:40:00 Emergency [facility] 1.2.840.114 350.1.13.10 4.2.7.2.686 [id number] 084 [id number] 2020-05-29 21:53:00 2020-05-29 23:40:00 Emergency [facility] 1.2.840.114 350.1.13.10 4.2.7.2.686 [id number] 084 [id number] [facility] 2019-12-13 10:58:13 2019-12-13 11:51:00 Emergency Katie Tran [facility] 1.2.840.114 350.1.13.10 4.2.7.2.686 [id number] 084 [id number] 2019-12-13 10:58:13 2019-12-13 11:51:00 Emergency Katie Tran [facility] 1.2.840.114 350.1.13.10 4.2.7.2.686 [id number] 084 [id number] [facility] 2019-12-13 00:00:00 2019-12-13 00:00:00 Orders Only Doctor Unassigned, [place] [facility] 1.2.840.114 350.1.13.10 4.2.7.2.686 [id number] 009 [id number] 2019-12-13 00:00:00 2019-12-13 00:00:00 Orders Only Doctor Unassigned, [place] [facility] 1.2.840.114 350.1.13.10 4.2.7.2.686 [id number] 009 [id number] [facility] 2019-12-09 17:21:03 2019-12-09 21:13:00 Emergency Pawan Estrella [facility] 1.2.840.114 350.1.13.10 4.2.7.2.686 [id number] 084 [id number] 2019-12-09 17:21:03 2019-12-09 21:13:00 Emergency X PAWAN ESTRELLA [facility] ERT [id number] [facility] 2019-12-09 17:21:03 2019-12-09 21:13:00 Emergency Pawan Estrella [facility] 1.2.840.114 350.1.13.10 4.2.7.2.686 [id number] 084 [id number] [facility] 2019-12-09 00:00:00 2019-12-09 00:00:00 Orders Only Doctor Unassigned, [place] [facility] 1.2.840.114 350.1.13.10 4.2.7.2.686 [id number] 009 [id number] 2019-12-09 00:00:00 2019-12-09 00:00:00 Orders Only Doctor Unassigned, [place] [facility] 1.2.840.114 350.1.13.10 4.2.7.2.686 [id number] 009 [id number] [facility] 2019-09-08 00:00:00 2019-09-08 23:59:00 Outpatient NORA RAZA [facility] [id number] [facility] 2019-07-28 10:30:00 2019-07-28 11:17:04 Outpatient R SRIKANTH QUINTANILLA [facility] [id number] [facility] 2019-07-05 23:58:00 2019-07-08 14:34:00 Hospital Encounter [facility] 1.2.840.114 350.1.13.10 4.2.7.2.686 [id number] 063 [id number] 2019-07-05 23:58:00 2019-07-08 14:34:00 Hospital Encounter [facility] 1.2.840.114 350.1.13.10 4.2.7.2.686 [id number] 063 [id number] [facility] 2019-07-05 00:00:00 2019-07-05 00:00:00 [facility].114 350.1.13.10 4.2.7.2.686 [id number] 019 [id number] 2019-07-05 00:00:00 2019-07-05 00:00:00 Nurse Triage [facility] 1.2.840.114 350.1.13.10 4.2.7.2.686 [id number] 019 [id number] [facility] 2019-06-29 12:49:05 2019-06-29 13:31:19 Routine Visit QuintanillaSrikanth steinberg [facility] 1.2.840.114 350.1.13.10 4.2.7.2.686 [id number] 2019-06-29 12:49:05 2019-06-29 13:31:19 Routine Visit Quintanilla Viryvikykyleeisabell [facility] 1.2.840.114 350.1.13.10 4.2.7.2.686 [id number] 107 [id number] [facility] 2019-06-27 00:00:00 2019-06-27 00:00:00 Nurse Triage Tasneem George [facility] 1.2.840.114 350.1.13.10 4.2.7.2.686 [id number] 019 [id number] [facility] 2019-06-22 12:50:16 2019-06-22 13:50:23 Routine Visit Srikanth Quintanilla [facility] 1.2.840.114 350.1.13.10 4.2.7.2.686 [id number] 107 [id number] [facility] 2019-06-14 10:09:39 2019-06-14 10:57:54 Routine Visit Srikanth Quintanilla [facility] 1.2840.114 350.1.13.10 4.2.7.2.686 [id number] 107 [id number] [facility] 2019-06-13 12:03:00 2019-06-13 13:50:00 Hospital Encounter Jeremy Peter [facility] 1.2.840.114 350.1.13.10 4.2.7.2.686 [id number] 083 [id number] [facility] 2019-06-11 00:07:00 2019-06-11 03:30:00 Hospital Encounter Shlomo Heredia [facility] 1.2.840.114 350.1.13.10 4.2.7.2.686 [id number] 070 [id number] [facility] 2019-06-10 00:00:00 2019-06-10 00:00:00 Nurse Triage Mery, Luda [facility] 1.2840.114 350.1.13.10 4.2.7.2.686 [id number] [id number] [facility] 2019-06-10 00:00:00 2019-06-10 00:00:00 Orders Only Doctor Unassigned, [place] [facility] 1.2.840.114 350.1.13.10 4.2.7.2.686 [id number] 009 [id number] [facility] 2019-05-31 13:52:06 2019-05-31 14:35:09 Routine Visit Srikanth Quintanilla [facility] 1.2.840.114 350.1.13.10 4.2.7.2.686 [id number] 107 [id number] [facility] 2019-05-31 00:00:00 2019-05-31 00:00:00 [facility] 1.2.840.114 350.1.13.10 4.2.7.2.686 [id number] 107 [id number] [facility] 2019-05-30 00:00:00 2019-05-30 00:00:00 Patient Secure Msg Doctor Unassigned, [place] [facility] 1.2.840.114 350.1.13.10 4.2.7.2.686 [id number] 044 [id number] 2019-05-30 00:00:00 2019-05-30 00:00:00 Nurse Triage Tasneem George [facility] 1.2.840.114 350.1.13.10 4.2.7.2.686 [id number] 019 [id number] [facility] 2019-05-30 00:00:00 2019-05-30 00:00:00 Patient Secure Ms Doctor Unassigned, [place] [facility] 1.2.840.114 350.1.13.10 4.2.7.2.686 [id number] 044 [id number] [facility] 2019-05-24 13:06:39 2019-05-24 13:57:06 Routine Visit Srikanth Quintanilla [facility] 1.2.840.114 350.1.13.10 4.2.7.2.686 [id number] 107 [id number] [facility] 2019-05-19 21:29:00 2019-05-20 00:36:00 Hospital Encounter Rosalio Mccall [facility] 1.2.840.114 350.1.13.10 4.2.7.2.686 [id number] 070 [id number] [facility] 2019-05-18 00:00:00 2019-05-18 00:00:00 Nurse Triage Justincarleen Tasneem [facility] 1.2.840.114 350.1.13.10 4.2.7.2.686 [id number] 019 [id number] [facility] 2019-05-18 00:00:00 2019-05-18 00:00:00 Patient Secure Msg Doctor Unassigned, [place] [facility] 1.2.840.114 350.1.13.10 4.2.7.2.686 [id number] 107 [id number] [facility] 2019-05-08 00:00:00 2019-05-08 00:00:00 Orders Only Doctor Unassigned, [place] [facility] 1.2.840.114 350.1.13.10 4.2.7.2.686 [id number] [id number] [facility] 2019-04-27 00:00:00 2019-04-27 00:00:00 Patient Secure Msg Doctor Unassigned, [place] [facility] 1.2.840.114 350.1.13.10 4.2.7.2.686 [id number] 044 [id number] [facility] 2019-04-19 00:00:00 2019-04-19 00:00:00 Patient Secure Msg Doctor Unassigned, [place] [facility] 1.2.840.114 350.1.13.10 4.2.7.2.686 [id number] 044 [id number] [facility] Results Test Description Test Time Test Comments Results Result Co mments Source [facility] [id number] 19:26:38* Test Item Value Reference Range Interpretation Comme nts POCT Molecular Strep (test c ode = 14913-0) Negative Negative Lab Interpretation (test cod e = 86727-5) Normal [facility] CenterComp. Metabolic Panel (51892)2024-06-21 01:14:48* Test Item Value Reference Range Interpretation Comme nts NA (test code = 7271606743) 137 mmol/L 135-145 K (test code = 4880635568) 3.7 mmol/L 3.5-5.0 CL (test code = 0385602678) 101 mmol/L 98-108 CO2 TOTAL (test code = 6131543589) 30 mmol/L 23-31 AGAP (test code = 8443071154) 6 2-16 BUN (test code = 3690739693) 15 mg/dL 7-23 GLUCOSE (test code = 3556259788) 81 mg/dL 70-110 CREATININE (test code = 2160-0) 0.73 mg/dL 0.50-1.04 TOTAL BILI (test code = 1814971114) 0.5 mg/dL 0.1-1.1 CALCIUM (test code = 3304767859) 9.0 mg/dL 8.6-10.6 T PROTEIN (test code = 0244846468) 7.2 g/dL 6.3-8.2 ALBUMIN (test code = 7758374701) 4.0 g/dL 3.5-5.0 ALK PHOS (test code = 4099902036) 57 U/L 34-122 ALTv (test code = 1742-6) 20 U/L 5-35 AST(SGOT) (test code = 0724219937) 25 U/L 13-40 eGFR (test code = 80320-7) 116.5 mL/min/1.73m2 CKD-EPI eGFR (20 21). Assuming creatinine has been stable day-to-day for at least three months, the eGFR indicates Category G1 (>= 90 mL/min/1.73 m2) [facility] Center[facility]2024-09-03 01:14:07* Test Item Value Reference Range Interpretation Comme nts LIPASE (test code = 0841034349) 95 U/L 0-220 Lab Interpretation (test cod e = 00366-0) Normal [facility] with [id number] 00:54:06* Test Item Value Reference Range Interpretation Comme nts WBC (test code = 6690-2) 9.90 4.30-11.10 RBC (test code = 789-8) 4.07 3.93-5.25 HGB (test code = 718-7) 11.9 g/dL 11.6-15.0 HCT (test code = 4544-3) 37.2 % 35.7-45.2 MCV (test code = 787-2) 91.4 fL 80.6-95.5 MCH (test code = 785-6) 29.2 pg 25.9-32.8 MCHC (test code = 786-4) 32.0 g/dL 31.6-35.1 RDW-SD (test code = 46572-3) 44.5 fL 39.0-49.9 RDW-CV (test code = 788-0) 13.2 % 12.0-15.5 PLT (test code = 777-3) 268 166-358 MPV (test code = 16314-0) 11.3 fL 9.5-12.9 NRBC/100 WBC (test code = 3217149973) 0.0 0.0-10.0 NRBC x10^3 (test code = 3330215240) See_Comment [Automated me ssage] The system which generated this result transmitted reference range: 10*3/?L. The reference range was not used to interpret this result as normal/abnormal. GRAN MAT (NEUT) % (test code = 770-8) 68.6 % IMM GRAN % (test code = 8713356505) 0.30 % LYMPH % (test code = 736-9) 23.9 % MONO % (test code = 5905-5) 5.8 % EOS % (test code = 713-8) 1.0 % BASO % (test code = 706-2) 0.4 % GRAN MAT x10^3(ANC) (test code = 0885086629) 6.79 10*3/uL 1.88-7.09 IMM GRAN x10^3 (test code = 4857191684) 0.03 10*3/uL 0.00-0.06 LYMPH x10^3 (test code = 731-0) 2.37 10*3/uL 1.32-3.29 MONO x10^3 (test code = 742-7) 0.57 10*3/uL 0.33-0.92 EOS x10^3 (test code = 711-2) 0.10 10*3/uL 0.03-0.39 BASO x10^3 (test code = 704-7) 0.04 10*3/uL 0.01-0.07 [facility] [id number] 00:42:00* Test Item Value Reference Range Interpretation Comme nts POCT PREG (test code = 1605) Negative On board controls acceptable with C Line (test code = 3574) Yes POCT PREG LOT # (test code = 3575) [id number] POCT PREG TEST DATE ( test code = 3576) 02/25/2025 Lab Interpretation (test cod e = 03820-4) Normal [facility] MOLECULAR [id number] 23:02:58* Test Item Value Reference Range Interpretation Comme nts POCT Molecular Strep (test c ode = 34381-0) Negative Negative Lab Interpretation (test cod e = 92997-6) Normal [facility] LUMBAR SPINE 3 [id number] 04:54:48 Ordering physician: MAMI SHABAZZ Indication: Low back pain, fall COMPARISON: None FINDINGS: 2 views of the lumbar spine. No acute fracture or dislocation isappreciated. The lumbar spine is in normal anatomic alignment. There is noradiographic evidence for significant degenerative disease.[facility] [id number] 03:01:00* Test Item Value Reference Range Interpretation Comme nts POCT PREG (test code = 1605) Negative On board controls acceptable with C Line (test code = 3574) Yes POCT PREG LOT # (test code = 3575) [id number] POCT PREG TEST DATE ( test code = 3576) 02/19/2025 Lab Interpretation (test cod e = 15017-5) Normal [facility] CenterC[facility], [id number] 00:00:00* Test Item Value Reference Range Interpretation Comme nts CULTURE, URINE (test code = 67439) SPECIMEN NUMBER: [id number] Garrett SanCULTURE, [id number] 00:00:00* Test Item Value Reference Range Interpretation Comme nts CULTURE, URINE (test code = 69678) SPECIMEN NUMBER: [id number] [facility] SanPOCT [id number] 00:45:00* Test Item Value Reference Range Interpretation Comme nts POCT PREG (test code = 1605) Negative On board controls acceptable with C Line (test code = 3574) Yes POCT PREG LOT # (test code = 3575) [id number] POCT PREG TEST DATE ( test code = 3576) 11/23/2024 Lab Interpretation (test cod e = 29137-5) Normal [facility] CenterPO[facility] MOLECULAR [id number] 02:20:45* Test Item Value Reference Range Interpretation Comme nts POCT Molecular Strep (test c ode = 00494-2) Negative Negative Lab Interpretation (test cod e = 22862-6) Normal [facility] CenterThyroid Stimulating [id number] 18:02:50 * Test Item Value Reference Range Interpretation Comme nts TSH (test code = 7689132237) 1.90 See_Comment [Automated messa ge] The system which generated this result transmitted reference range: 0.45 - 4.70 mIU/L. The reference range was not used to interpret this result as normal/abnormal. Lab Interpretation (test code = 79005-2) Normal [facility] CenterXR CHEST 1 [id number] 17:58:00EXAM:XR CHEST 1 VW HISTORY: 23 years-old Female; Indication for study: chest pain COMPARISON: Chestradiograph dated 07/22/2023 TECHNIQUE: Frontal chest radiograph was obtained. FINDINGS: Lungs/Pleura: Adequate lung volume. The lungs are clear with no focalconsolidation. There is no pleural effusionor pneumothorax. Heart/Mediastinum: The cardiomediastinal silhouette is normal. ? Bones and soft tissues: No acute abnormality detected.[facility] TROPONIN [id number] 17:44:10* Test Item Value Reference Range Interpretation Comme nts TROPONIN I (test code = 6557710875) 0.003 ng/mL <=0.034 ANIBAL (test code = [...] of biotin. Lab Interpretation (test code = 25502-1) Normal [facility] CenterPREGNANCY TEST, [id number] 17:38:33* Test Item Value Reference Range Interpretation Comme nts PREG SERUM (test code = 8952880404) Negative ANIBAL (test code = ANIBAL) Less than 10 IU/L. ?If low titer or ectopic is suspected, resubmit specimen in 48-72 hours. [facility]. METABOLIC PANEL (34011)2023-10-18 17:32:31* Test Item Value Reference Range Interpretation Comme nts NA (test code = 4564057694) 139 mmol/L 135-145 K (test code = 7700353724) 3.5 mmol/L 3.5-5.0 CL (test code = 8860764830) 105 mmol/L 98-108 CO2 TOTAL (test code = 3621278876) 28 mmol/L 23-31 AGAP (test code = 7925548405) 6 2-16 BUN (test code = 3340958581) 14 mg/dL 7-23 GLUCOSE (test code = 4022588329) 98 mg/dL 70-110 CREATININE (test code = 2582787843) 0.82 mg/dL 0.50-1.04 TOTAL BILI (test code = 1928647091) 0.5 mg/dL 0.1-1.1 CALCIUM (test code = 0548587451) 9.1 mg/dL 8.6-10.6 T PROTEIN (test code = 3960300475) 7.2 g/dL 6.3-8.2 ALBUMIN (test code = 4233947628) 4.0 g/dL 3.5-5.0 ALK PHOS (test code = 8795009821) 73 U/L 34-122 ALTv (test code = 1742-6) 16 U/L 5-35 AST(SGOT) (test code = 8392841923) 21 U/L 13-40 eGFR (test code = 35031-1) 101.9 mL/min/1.73m2 CKD-EPI eGFR (20 21). Assuming creatinine has been stable day-to-day for at least three months, the eGFR indicates Category G1 (>= 90 mL/min/1.73 m2) [facility] CenterLIPASE2023-12-31 17:32:31* Test Item Value Reference Range Interpretation Comme nts LIPASE (test code = 1094874089) 96 U/L 0-220 Lab Interpretation (test cod e = 55566-6) Normal [facility] CenterMagnesium2023-12-31 17:32:31* Test Item Value Reference Range Interpretation Comme nts MAGNESIUM (test code = 3908548751) 1.9 mg/dL 1.7-2.4 Lab Interpretation (test cod e = 62683-3) Normal [facility] CenterCreatine [id number] 17:32:10* Test Item Value Reference Range Interpretation Comme nts CK (test code = 4290054032) 39 U/L 33-194 Lab Interpretation (test cod e = 37243-4) Normal [facility] CenterCB WITH [id number] 17:20:30* Test Item Value Reference Range Interpretation Comme nts WBC (test code = 6690-2) 7.13 See_Comment [Automated Episenciala ge] The system which generated this result transmitted reference range: 4.30 - 11.10 10*3/?L. The reference range was not used to interpret this result as normal/abnormal. RBC (test code = 789-8) 4.31 See_Comment [Automated Episenciala ge] The system which generated this result [...] 32.7 g/dL 31.6-35.1 RDW-SD (test code = 48450-5) 44.3 fL 39.0-49.9 RDW-CV (test code = 788-0) 13.4 % 12.0-15.5 PLT (test code = 777-3) 269 See_Comment [Automated messa ge] The system which generated this result transmitted reference range: 166 - 358 10*3/?L. The reference range was not used to interpret this result as normal/abnormal. MPV (test code = 15573-4) 11.0 fL 9.5-12.9 NRBC/100 WBC (test code = 8570732857) 0.0 See_Comment [Automated vip.com ssage] The system which generated this result transmitted reference range: 0.0 - 10.0 /100 WBCs. The reference range was not used to interpret this result as normal/abnormal. NRBC x10^3 (test code = 9823928866) See_Comment [Automated messa ge] The system which generated this result transmitted reference range: 10*3/?L. The reference range was not used to interpret this result as normal/abnormal. GRAN MAT (NEUT) % (test code = 770-8) 68.3 % IMM GRAN % (test code = 1367159891) 0.10 % LYMPH % (test code = 736-9) 25.8 % MONO % (test code = 5905-5) 4.5 % EOS % (test code = 713-8) 0.7 % BASO % (test code = 706-2) 0.6 % GRAN MAT x10^3(ANC) (test code = 2099661035) 4.87 10*3/uL 1.88-7.09 IMM GRAN x10^3 (test code = 7897815430) 0.00-0.06 LYMPH x10^3 (test code = 731-0) 1.84 10*3/uL 1.32-3.29 MONO x10^3 (test code = 742-7) 0.32 10*3/uL 0.33-0.92 L EOS x10^3 (test code = 711-2) 0.05 10*3/uL 0.03-0.39 BASO x10^3 (test code = 704-7) 0.04 10*3/uL 0.01-0.07 Lab Interpretation (test code = 79050-7) Abnormal [facility] MOLECULAR [id number] 17:00:50* Test Item Value Reference Range Interpretation Comme nts POCT Molecular FluA (test co de = 29390-4) Negative Negative POCT Molecular FluB (test co de = 52571-6) Negative Negative Lab Interpretation (test cod e = 15565-2) Normal [facility] SARS-COV-2 ANTIGEN (BINAX NOW)2023-09-25 16:59:00* Test Item Value Reference Range Interpretation Comme nts POCT SARS-COV-2 ANTIGEN (domenico t code = 14960-6) Not Detected Not Detected On board controls acceptable with C Line (test code = 3574) Yes Lab Interpretation (test cod e = 05380-2) Normal [facility] MOLECULAR [id number] 16:50:44* Test Item Value Reference Range Interpretation Comme nts POCT Molecular Strep (test c ode = 10834-7) Positive Negative A Lab Interpretation (test cod e = 74311-2) Abnormal [facility] MOLECULAR [id number] 00:32:05* Test Item Value Reference Range Interpretation Comme nts POCT Molecular Strep (test c ode = 25606-7) Negative Negative Lab Interpretation (test cod e = 62453-3) Normal [facility] SARS-COV-2 ANTIGEN (BINAX NOW)2023-07-22 00:31:00* Test Item Value Reference Range Interpretation Comme nts POCT SARS-COV-2 ANTIGEN (domenico t code = 92965-0) Not Detected Not Detected On board controls acceptable with C Line (test code = 3574) Yes Lab Interpretation (test cod e = 24595-7) Normal [facility] [id number] 20:25:38* Test Item Value Reference Range Interpretation Comme nts FREE T4 (test code = 8744272908) 0.95 See_Comment [Automated messa ge] The system which generated this result transmitted reference range: 0.78 - 2.20 ng/dL:. The reference range was not used to interpret this result as normal/abnormal. Lab Interpretation (test code = 57450-2) Normal [facility] CenterTROPONIN [id number] 20:20:01* Test Item Value Reference Range Interpretation Comme nts TROPONIN I (test code = 1572630513) 0.001 ng/mL <=0.034 ANIBAL (test code = [...] of biotin. Lab Interpretation (test code = 22563-7) Normal [facility] CenterN-TERMINAL [id number] 20:17:38* Test Item Value Reference Range Interpretation Comme nts NT-proBNP (test code = 08168-9) 32 pg/mL <=125 Lab Interpretation (test cod e = 83547-0) Normal [facility] (90883)2023-05-01 20:08:18* Test Item Value Reference Range Interpretation Comme nts NA (test code = 3608545637) 139 mmol/L 135-145 K (test code = 6489890982) 3.8 mmol/L 3.5-5.0 CL (test code = 1620415063) 102 mmol/L 98-108 CO2 TOTAL (test code = 4608364680) 28 mmol/L 23-31 AGAP (test code = 7741797359) 9 2-16 BUN (test code = 7498005718) 10 mg/dL 7-23 GLUCOSE (test code = 5341394388) 81 mg/dL 70-110 CREATININE (test code = 5766418287) 0.59 mg/dL 0.50-1.04 TOTAL BILI (test code = 8303679094) 0.5 mg/dL 0.1-1.1 CALCIUM (test code = 3461460364) 9.1 mg/dL 8.6-10.6 T PROTEIN (test code = 6237063220) 6.9 g/dL 6.3-8.2 ALBUMIN (test code = 2924666818) 4.1 g/dL 3.5-5.0 ALK PHOS (test code = 9512120893) 56 U/L 34-122 ALTv (test code = 1742-6) 16 U/L 5-35 AST(SGOT) (test code = 5931068842) 23 U/L 13-40 eGFR (test code = 8692882066) 125.2 mL/min/1.73m2 ANIBAL (test code = ANIBAL) [...] or urine or abnormalities in imaging tests). [facility] PARTIAL THRMPLAS [id number] 20:06:35* Test Item Value Reference Range Interpretation Comme [facility] APTT Patient (test code = 3173-2) 30 See_Comment [Automated message] The system which generated this result transmitted reference range: 23 - 38 Seconds. The reference range was not used to interpret this result as normal/abnormal. ANIBAL (test code = ANIBAL) The [facility] patient population mean normal value for aPTT is 30 seconds. Lab Interpretation (test code = 85190-9) Normal [facility] Center[facility] / [id number] 20:04:15* Test Item Value Reference Range Interpretation Comme [facility] PROTIME PATIENT (test code = 5964-2) 13.9 See_Comment [Automated Episenciala Zinio] The system which generated this result transmitted reference range: 12.0 - 14.7 Seconds. The reference range was not used to interpret this result as normal/abnormal. INR (test code = 6301-6) 1.1 Normal INR <1.1; Warfarin Therapeutic range 2.0 to 3.0 or 2.5 to 3.5, depending upon the indications. Lab Interpretation (test code = 28157-3) Normal [facility] WITH [id number] 19:56:58* Test Item Value Reference Range Interpretation Comme [facility] WBC (test code = 6690-2) 7.45 See_Comment [Automated Episenciala ge] The system which generated this result transmitted reference range: 4.30 - 11.10 10*3/?L. The reference range was not used to interpret this result as normal/abnormal. RBC (test code = 789-8) 4.37 See_Comment [Automated Episenciala ge] The system which generated this result [...] 32.7 g/dL 31.6-35.1 RDW-SD (test code = 95610-6) 40.9 fL 39.0-49.9 RDW-CV (test code = 788-0) 13.1 % 12.0-15.5 PLT (test code = 777-3) 271 See_Comment [Automated messa ge] The system which generated this result transmitted reference range: 166 - 358 10*3/?L. The reference range was not used to interpret this result as normal/abnormal. MPV (test code = 64916-7) 11.1 fL 9.5-12.9 NRBC/100 WBC (test code = 4052626955) 0.0 See_Comment [Automated me ssage] The system which generated this result transmitted reference range: 0.0 - 10.0 /100 WBCs. The reference range was not used to interpret this result as normal/abnormal. NRBC x10^3 (test code = 4511411924) See_Comment [Automated me ssage] The system which generated this result transmitted reference range: 10*3/?L. The reference range was not used to interpret this result as normal/abnormal. GRAN MAT (NEUT) % (test code = 770-8) 55.6 % IMM GRAN % (test code = 1846187378) 0.00 % LYMPH % (test code = 736-9) 38.1 % MONO % (test code = 5905-5) 4.8 % EOS % (test code = 713-8) 1.1 % BASO % (test code = 706-2) 0.4 % GRAN MAT x10^3(ANC) (test code = 0253883160) 4.14 10*3/uL 1.88-7.09 IMM GRAN x10^3 (test code = 3528704847) 0.00-0.06 LYMPH x10^3 (test code = 731-0) 2.84 10*3/uL 1.32-3.29 MONO x10^3 (test code = 742-7) 0.36 10*3/uL 0.33-0.92 EOS x10^3 (test code = 711-2) 0.08 10*3/uL 0.03-0.39 BASO x10^3 (test code = 704-7) 0.03 10*3/uL 0.01-0.[address] CenterPO[facility] [id number] 19:25:00* Test Item Value Reference Range Interpretation Comme nts POCT PREG (test code = 1605) Negative On board controls acceptable with C Line (test code = 3574) Yes POCT PREG LOT # (test code = 357) [id number] POCT PREG TEST DATE ( test code = 3576) 07/24/2024 Lab Interpretation (test cod e = 71322-3) Normal [facility] CenterPA TEST, THINPREP, [id number] 17:57:05 * Test Item Value Reference Range Interpretation Comme nts SOURCE: (test code = 8001) Cervical/Vagin al SLIDES: (test code = 8011) 2 LMP: (test code = 8021) 01/03/2023 SPECIMEN ADEQUACY: (test code = 71835) (NOTE) Satisfactory for evaluation. Endocervical cells/transformation zone component present. INTERPRETATION: (test code = 86375) NILM/NO EPITH. ABNORMALITY;SE E BELOW ---- NEGATIVE FOR INTRAEPITHELIAL LESION OR MALIGNANCY (NILM) - OTHER COMMENTS: (test code = 8081) (NOTE) Interpreted emiliana moser an alternate method of processing. This testwas developed and its performance characteristics determined by[facility] It has not been cleared orapproved by the FDA. The laboratory is regulated under CLIA asqualified to perform high-complexity testing. This test is usedfor clinical purposes. It should not be regarded asinvestigational or for research. EXTRUSION DIE COORDINATOR : (test code = 8101) ABDIAS Laughlin (ASCP) QC TECHNOLOGIST: (test code = 8111) LATOYA Mcintosh( CP),[facility] LOCATION: (test code = 00901) (NOTE) Specimens proces sed and interpreted at [facility], [address] [place] [address], , CLIA: [id number] CPT: (test code = 8140) (NOTE) 33158 UNLESS OTH ERWISE INDICATED, COMPUTER AIDED AND EXTRUSION DIE COORDINATOR SCREENING PERFORMED. The Pap test is a screening test with an inherent, but low probability of error. Your patient should be reminded to consult you immediately if she experiences any suspicious signs or symptoms, regardless of her Pap test result. An alternate report format containing images or consolidated prior Pap history is available as applicable. HPV HIGH IF ABNORMAL [id number] 17:57:05* Test Item Value Reference Range Interpretation Comme nts HPV HIGH IF ABNORMAL THINPREP (test code = 34346) CRITERIA NOT MET [facility] has imp ortant pathology staff changes effective 12/17/2022. New pathology staff will provide uninterrupted, excellent patient care and clinical consultation. See URL: [email or web address]. UNLESS OTHERWISE INDICATED, ALL TESTING PERFORMED AT [facility] [address] [place] [address] ELECTRICAL PANEL BUILDER: HOLLIE FRANCIS M.D. CLIA NUMBER [id number] [facility] [place]. [id number] CULTURE, [id number] 13:22:41SPECIMEN NUMBER: [id number] CULTURE, URINE SPECIMEN NUMBER: [id number] SPECIMEN COMMENT: URINE SOURCE: URINE REPORT STATUS: FINAL FINAL REPORT: 02/11/2023 10-50,000 CFU/ML UROGENITAL YESSI PRESENT NO CO MMON PATHOGENSPAP TEST, THINPREP, [id number] 00:00:00* Test Item Value Reference Range Interpretation Comme nts SOURCE: (test code = 8001) Cervical/Vaginal SLIDES: (test code = 8011) 2 LMP: (test code = 8021) 01/03/2023 SPECIMEN ADEQUACY: (test code = 63158) (NOTE) INTERPRETATION: (test code = 77039) NILM/NO EPITH. ABNORMALITY;SEE BELOW OTHER COMMENTS: (test code = 8081) (NOTE) EXTRUSION DIE COORDINATOR: (test code = 8101) ABDIAS Laughlin (ASCP) QC TECHNOLOGIST: (test code = 8111) LATOYA Mcintosh(ASCP),[facility] LOCATION: (test code = 99921) (NOTE) CPT: (test code = 8140) (NOTE) Garrett Palomino AustinHPV HIGH IF ABNORMAL [id number] 00:00:00* Test Item Value Reference Range Interpretation Comme nts HPV HIGH IF ABNORMAL THINPREP (test code = 12452) CRITERIA NOT MET Garrett SanCULTURE, [id number] 00:00:00* Test Item Value Reference Range Interpretation Comme nts CULTURE, URINE (test code = 03539) SPECIMEN NUMBER: [id number] Garrett SanBOSTON TEST, THINPREP, [id number] 00:00:00* Test Item Value Reference Range Interpretation Comme nts SOURCE: (test code = 8001) Cervical/Vaginal SLIDES: (test code = 8011) 2 LMP: (test code = 8021) 01/03/2023 SPECIMEN ADEQUACY: (test code = 28028) (NOTE) INTERPRETATION: (test code = 48938) NILM/NO EPITH. ABNORMALITY;SEE BELOW OTHER COMMENTS: (test code = 8081) (NOTE) EXTRUSION DIE COORDINATOR: (test code = 8101) ABDIAS Laughlin (ASCP) QC TECHNOLOGIST: (test code = 8111) LATOYA Mcintosh(ASCP),[facility] LOCATION: (test code = 99678) (NOTE) CPT: (test code = 8140) (NOTE) Garrett SanCULTURE, [id number] 00:00:00* Test Item Value Reference Range Interpretation Comme nts CULTURE, URINE (test code = 44008) SPECIMEN NUMBER: [id number] Garrett SanHPV HIGH IF ABNORMAL [id number] 00:00:00* Test Item Value Reference Range Interpretation Comme nts HPV HIGH IF ABNORMAL THINPREP (test code = 38929) CRITERIA NOT MET Garrett SanVAGINAL PATHOGENS DNA [id number] 16:21:49* Test Item Value Reference Range Interpretation Comme nts JOVANY SPECIES (test code = 82894) NEGATIVE NEGATIVE G. VAGINALIS (test code = 32650) NEGATIVE NEGATIVE T. VAGINALIS (test code = 59791) NEGATIVE NEGATIVE Note: The [facility] irm VPIII Microbial Identification Testis a DNA probe test intended for use in the detectionand identification of Jovany species, Gardnerellavaginalis and Trichomonas vaginalis nucleic acid. [facility] has important pathology staff changes effective 12/17/2022. New pathology staff will provide uninterrupted, excellent patient care and clinical consultation. See URL: [email or web address]. UNLESS OTHERWISE INDICATED, ALL TESTING PERFORMED AT [facility] [address] [place] [address] ELECTRICAL PANEL BUILDER: HOLLIE FRANCIS M.D. CLIA NUMBER [id number] [facility] [place]. [id number] VAGINAL PATHOGENS DNA [id number] 00:00:00* Test Item Value Reference Range Interpretation Comme nts JOVANY SPECIES (test code = 74466) NEGATIVE G. VAGINALIS (test code = 95904) NEGATIVE T. VAGINALIS (test code = 65423) NEGATIVE Garrett SanVAGINAL PATHOGENS DNA [id number] 00:00:00* Test Item Value Reference Range Interpretation Comme nts JOVANY SPECIES (test code = 94955) NEGATIVE G. VAGINALIS (test code = 72592) NEGATIVE T. VAGINALIS (test code = 79642) NEGATIVE Garrett SanPOCT [id number] 12:38:00* Test Item Value Reference Range Interpretation Comme nts POCT PREG (test code = 1605) negative On board controls acceptable with C Line (test code = 3574) present POCT PREG LOT # (test code = 3571) [id number] POCT PREG TEST DATE ( test code = 3576) [id number] Lab Interpretation (test cod e = 69341-9) Normal [facility], [id number] 12:51:58SPECIMEN NUMBER: [id number] CULTURE, URINE SPECIMEN NUMBER: [id number] SPECIMEN COMMENT: URINE SOURCE: URINE REPORT STATUS: FINAL FINAL REPORT: 01/11/2023 >100,000 CFU/ML UROGENITAL YESSI PRESENT NO COMMON PATHOGENSCULTURE, [id number] 00:00:00* Test Item Value Reference Range Interpretation Comme nts CULTURE, URINE (test code = 19462) SPECIMEN NUMBER: [id number] Garrett SanCULTLORAINE, [id number] 00:00:00* Test Item Value Reference Range Interpretation Comme nts CULTURE, URINE (test code = 76151) SPECIMEN NUMBER: [id number] Garrett SanVAGINAL PATHOGENS DNA [id number] 15:44:49* Test Item Value Reference Range Interpretation Comme nts JOVANY SPECIES (test code = ) NEGATIVE NEGATIVE G. VAGINALIS (test code = 93436) NEGATIVE NEGATIVE T. VAGINALIS (test code = 58941) NEGATIVE NEGATIVE Note: The [employer] VPIII Microbial Identification Testis a DNA probe test intended for use in the detectionand identification of Jovany species, Gardnerellavaginalis and Trichomonas vaginalis nucleic acid. [facility] has important pathology staff changes effective 12/17/2022. New pathology staff will provide uninterrupted, excellent patient care and clinical consultation. See URL: [email or web address]. UNLESS OTHERWISE INDICATED, ALL TESTING PERFORMED AT [facility] [address] [place] [address] ELECTRICAL PANEL BUILDER: HOLLIE FRANCIS M.D. CLIA NUMBER [id number] [facility] [place] [place]. [id number] VAGINAL PATHOGENS DNA [id number] 00:00:00* Test Item Value Reference Range Interpretation Comme nts JOVANY SPECIES (test code = ) NEGATIVE G. VAGINALIS (test code = 86876) NEGATIVE T. VAGINALIS (test code = 50935) NEGATIVE Garrett SanVAGINAL PATHOGENS DNA [id number] 00:00:00* Test Item Value Reference Range Interpretation Comme nts JOVANY SPECIES (test code = 04516) NEGATIVE G. VAGINALIS (test code = 28631) NEGATIVE T. VAGINALIS (test code = 52985) NEGATIVE Garrett SanTHYROID II PROFILE (TU,T4,FTI,TSH)2022-11-20 04:41:48* Test Item Value Reference Range Interpretation Comme nts T-UPTAKE (test code = 2817) 27.2 % 24.3-39.0 THYROX. BIND. CAPAC. (test code = 61546) 1.2 0.8-1.3 T4 (THYROXINE) (test code = 2819) 6.8 UG/DL 4.5-10.5 CORRECTED T4 (FTI) (test code = 2820) 5.7 UG/DL 4.2-11.6 TSH, THIRD GENERATION (test code = 2821) 0.839 UIU/ML 0.400-4.100 UNLESS OTHERWISE INDICATED, ALL TESTING PERFORMED ATCLINICAL PATHOLOGY [employer] [employer] [address] [place] [address] ELECTRICAL PANEL BUILDER: NAHED JACOBSON M.D. CLIA NUMBER [id number] [facility] [place]. [id number] COMPREHENSIVE METABOLIC [id number] 03:07:49* Test Item Value Reference Range Interpretation Comme nts GLUCOSE (test code = 2217) 81 MG/DL 70-99 BUN (test code = 2207) 14 MG/DL 6-20 CREATININE (test code = 221) 0.81 MG/DL 0.60-1.30 eGFR (2020 CKD-EPI) (test code = 47501) 104 ML/MIN/1.73 >60 CALC BUN/CREAT (test code = 2235) 17 RATIO 6-28 SODIUM (test code = 223) 141 MEQ/L 133-146 POTASSIUM (test code = 2228) 4.2 MEQ/L 3.5-5.4 CHLORIDE (test code = 2215) 103 MEQ/L 95-107 CARBON DIOXIDE (test code = 2206) 23 MEQ/L 19-31 CALCIUM (test code = 2209) 9.2 MG/DL 8.5-10.5 PROTEIN, TOTAL (test code = 222) 7.1 G/DL 6.1-8.3 ALBUMIN (test code = 220) 4.6 G/DL 3.5-5.2 CALC GLOBULIN (test code = 2240) 2.5 G/DL 1.9-3.7 CALC A/G RATIO (test code = 2234) 1.8 RATIO 1.0-2.6 BILIRUBIN, TOTAL (test code = 2206) 0.2 MG/DL See_Comment [Automated me ssage] The system which generated this result transmitted reference range: <=1.2. The reference range was not used to interpret this result as normal/abnormal. ALKALINE PHOSPHATASE (test code = 2204) 98 U/L 40-115 AST (test code = 2218) 17 U/L 9-40 ALT (test code = 2219) 13 U/L 5-40 HEMOGLOBIN [id number] 01:43:57* Test Item Value Reference Range Interpretation Comme nts HEMOGLOBIN A1c (test code = 57551) 5.3 % 4.2-5.6 CBC W/AUTO DIFF WITH [id number] 01:08:39* Test Item Value Reference Range Interpretation [...] 0.00-0.10 ABS NUCLEATED RBCS (test code = 12938) 0.00 K/UL 0.00-0.11 COMPREHENSIVE METABOLIC PANEL [ADDED]2022-11-20 00:00:00* Test Item Value Reference Range Interpretation Comme nts GLUCOSE (test code = 2217) 81 MG/DL BUN (test code = 2208) 14 MG/DL CREATININE (test code = 2214) 0.81 MG/DL eGFR (2020 CKD-EPI) (test code = 50115) 104 ML/MIN/1.73 CALC BUN/CREAT (test code = 2235) 17 RATIO SODIUM (test code = 2231) 141 MEQ/L POTASSIUM (test code = 2228) 4.2 MEQ/L CHLORIDE (test code = 2215) 103 MEQ/L CARBON DIOXIDE (test code = 2206) 23 MEQ/L CALCIUM (test code = 2209) 9.2 MG/DL PROTEIN, TOTAL (test code = 2229) 7.1 G/DL ALBUMIN (test code = 2201) 4.6 G/DL CALC GLOBULIN (test code = 2240) 2.5 G/DL CALC A/G RATIO (test code = 2234) 1.8 RATIO BILIRUBIN, TOTAL (test code = 2207) 0.2 MG/DL ALKALINE PHOSPHATASE (test code = 2204) 98 U/L AST (test code = 2218) 17 U/L ALT (test code = 2219) 13 U/L Garrett SanHEMOGLOBIN A1c [ADDED]2022-11-20 00:00:00* Test Item Value Reference Range Interpretation Comme nts HEMOGLOBIN A1c (test code = 47208) 5.3 % Garrett SanTHYROID II PROFILE (TU,T4,FTI,TSH) [ADDED]2022-11-20 00:00:00* Test Item Value Reference Range Interpretation Comme nts T-UPTAKE (test code = 2817) 27.2 % THYROX. BIND. CAPAC. (test c ode = 51174) 1.2 T4 (THYROXINE) (test code = 2819) 6.8 UG/DL CORRECTED T4 (FTI) (test cod e = 2820) 5.7 UG/DL TSH, THIRD GENERATION (test code = 2821) 0.839 UIU/ML Garrett SanCBC W/AUTO DIFF WITH PLATELETS [ADDED]2022-11-20 00:00:00* Test Item Value Reference Range Interpretation Comme nts WBC (test code = 1001) 8.0 K/UL RBC (test code = 1002) 4.70 M/UL HEMOGLOBIN (test code = 1003) 13.0 G/DL HEMATOCRIT (test code = 1004) 39.5 % MCV (test code = 1005) 84.0 fL MCH (test code = 1006) 27.7 PG MCHC (test code = 1007) 32.9 G/DL RDW (test code = 1038) 13.2 % NEUTROPHILS (test code = 1008) 62.6 % LYMPHOCYTES (test code = 1010) 31.3 % MONOCYTES (test code = 1011) 4.4 % EOSINOPHILS (test code = 1012) 0.8 % BASOPHILS (test code = 1013) 0.8 % IMMATURE GRANULOCYTES (test code = 1036) 0.1 % NUCLEATED RBCS (test code = 1065) 0.0 /100WBC'S PLATELET COUNT (test code = 1015) 328 K/UL ABSOLUTE NEUTROPHILS (test c ode = 1066) 5.01 K/UL ABSOLUTE LYMPHOCYTES (test c ode = 1067) 2.50 K/UL ABSOLUTE MONOCYTES (test cod e = 1068) 0.35 K/UL ABSOLUTE EOSINOPHILS (test c ode = 1040) 0.06 K/UL ABSOLUTE BASOPHILS (test cod e = 1069) 0.06 K/UL ABS IMMATURE GRANULOCYTES (t est code = 1020) 0.01 K/UL ABS NUCLEATED RBCS (test cod e = 62846) 0.00 K/UL Garrett SanCOMPREHENSIVE METABOLIC PANEL [ADDED]2022-11-20 00:00:00* Test Item Value Reference Range Interpretation Comme nts GLUCOSE (test code = 2217) 81 MG/DL BUN (test code = 2208) 14 MG/DL CREATININE (test code = 2214) 0.81 MG/DL eGFR (2020 CKD-EPI) (test code = 27566) 104 ML/MIN/1.73 CALC BUN/CREAT (test code = 2235) 17 RATIO SODIUM (test code = 223) 141 MEQ/L POTASSIUM (test code = 2228) 4.2 MEQ/L CHLORIDE (test code = 2215) 103 MEQ/L CARBON DIOXIDE (test code = 2206) 23 MEQ/L CALCIUM (test code = 2209) 9.2 MG/DL PROTEIN, TOTAL (test code = 222) 7.1 G/DL ALBUMIN (test code = 2201) 4.6 G/DL CALC GLOBULIN (test code = 2240) 2.5 G/DL CALC A/G RATIO (test code = 2234) 1.8 RATIO BILIRUBIN, TOTAL (test code = 2206) 0.2 MG/DL ALKALINE PHOSPHATASE (test code = 2203) 98 U/L AST (test code = 2217) 17 U/L ALT (test code = 221) 13 U/L Garrett SanHEMOGLOBIN A1c [ADDED]2022-11-20 00:00:00* Test Item Value Reference Range Interpretation Comme nts HEMOGLOBIN A1c (test code = 30980) 5.3 % Garrett SanTHYROID II PROFILE (TU,T4,FTI,TSH) [ADDED]2022-11-20 00:00:00* Test Item Value Reference Range Interpretation Comme nts T-UPTAKE (test code = 2817) 27.2 % THYROX. BIND. CAPAC. (test c ode = 32689) 1.2 T4 (THYROXINE) (test code = 2819) 6.8 UG/DL CORRECTED T4 (FTI) (test cod e = 2820) 5.7 UG/DL TSH, THIRD GENERATION (test code = 2821) 0.839 UIU/ML Garrett SanCBC W/AUTO DIFF WITH PLATELETS [ADDED]2022-11-20 00:00:00* Test Item Value Reference Range Interpretation Comme nts WBC (test code = 1001) 8.0 K/UL RBC (test code = 1002) 4.70 M/UL HEMOGLOBIN (test code = 1003) 13.0 G/DL HEMATOCRIT (test code = 1004) 39.5 % MCV (test code = 1005) 84.0 fL MCH (test code = 1006) 27.7 PG MCHC (test code = 1007) 32.9 G/DL RDW (test code = 1038) 13.2 % NEUTROPHILS (test code = 1008) 62.6 % LYMPHOCYTES (test code = 1010) 31.3 % MONOCYTES (test code = 1011) 4.4 % EOSINOPHILS (test code = 1012) 0.8 % BASOPHILS (test code = 1013) 0.8 % IMMATURE GRANULOCYTES (test code = 1036) 0.1 % NUCLEATED RBCS (test code = 1065) 0.0 /100WBC'S PLATELET COUNT (test code = 1015) 328 K/UL ABSOLUTE NEUTROPHILS (test c ode = 1066) 5.01 K/UL ABSOLUTE LYMPHOCYTES (test c ode = 1067) 2.50 K/UL ABSOLUTE MONOCYTES (test cod e = 1068) 0.35 K/UL ABSOLUTE EOSINOPHILS (test c ode = 1040) 0.06 K/UL ABSOLUTE BASOPHILS (test cod e = 1069) 0.06 K/UL ABS IMMATURE GRANULOCYTES (t est code = 1020) 0.01 K/UL ABS NUCLEATED RBCS (test cod e = 18467) 0.00 K/UL Garrett Palomino AustinTHYROID STIMULATING [id number] 07:10:46* Test Item Value Reference Range Interpretation Comme nts TSH (test code = 9352236810) See_Comment L [Automated messa ge] The system which generated this result transmitted reference range: 0.45 - 4.70 mIU/L. The reference range was not used to interpret this result as normal/abnormal. Lab Interpretation (test code = 00153-3) Abnormal [facility] [id number] 06:57:08* Test Item Value Reference Range Interpretation Comme nts FREE T4 (test code = 8419563030) See_Comment [Automated messa ge] The system which generated this result transmitted reference range: 0.78 - 2.20 ng/dL:. The reference range was not used to interpret this result as normal/abnormal. Lab Interpretation (test code = 90201-1) Normal [facility]TR[facility] [id number] 06:52:03* Test Item Value Reference Range Interpretation Comments TROPONIN I (test code = 1419796468) 0.001 ng/mL See_Comment [Automated message] The system [...] of biotin. Lab Interpretation (test code = 69938-6) Normal [facility]. METABOLIC PANEL (43772)2022-10-08 06:40:20* Test Item Value Reference Range Interpretation Comme nts NA (test code = 2964829430) 137 mmol/L 135-145 K (test code = 6526334595) 3.6 mmol/L 3.5-5.0 CL (test code = 5895573634) 102 mmol/L 98-108 CO2 TOTAL (test code = 6389580368) 28 mmol/L 23-31 AGAP (test code = 0450420944) 2-16 BUN (test code = 0210672255) 12 mg/dL 7-23 GLUCOSE (test code = 6235690757) 94 mg/dL 70-110 CREATININE (test code = 6820037504) 0.71 mg/dL 0.50-1.04 TOTAL BILI (test code = 1867255191) 0.3 mg/dL 0.1-1.1 CALCIUM (test code = 9277840613) 8.6 mg/dL 8.6-10.6 T PROTEIN (test code = 2654792932) 6.9 g/dL 6.3-8.2 ALBUMIN (test code = 5734603696) 4.3 g/dL 3.5-5.0 ALK PHOS (test code = 3894767348) 85 U/L 34-122 ALTv (test code = 1742-6) 19 U/L 5-35 AST(SGOT) (test code = 7802001359) 20 U/L 13-40 eGFR (test code = 3302191595) mL/min/1.73m2 ANIBAL (test code = ANIBAL) Association [...] or urine or abnormalities in imaging tests). [facility] Center[facility]IPASE2022-[facility] 06:39:40* Test Item Value Reference Range Interpretation Comme [facility] LIPASE (test code = 8983734810) 157 U/L 0-220 Lab Interpretation (test cod e = 44268-6) Normal [facility] CenterPO[facility] [id number] 06:35:00* Test Item Value Reference Range Interpretation Comme [facility] POCT PREG (test code = 1605) negative On board controls acceptable with C Line (test code = 3574) present POCT PREG LOT # (test code = 3575) [id number] POCT PREG TEST DATE ( test code = 3576) 01/17/2024 Lab Interpretation (test cod e = 54973-1) Normal [facility] WITH [id number] 06:27:44* Test Item Value Reference Range Interpretation Comme nts WBC (test code = 6690-2) See_Comment [Automated messa ge] The system which generated this result transmitted reference range: 4.30 - 11.10 10*3/?L. The reference range was not used to interpret this result as normal/abnormal. RBC (test code = 789-8) See_Comment [Automated Episenciala ge] The system which generated this result [...] 32.6 g/dL 31.6-35.1 RDW-SD (test code = 74344-8) 39.1 fL 39.0-49.9 RDW-CV (test code = 788-0) 12.9 % 12.0-15.5 PLT (test code = 777-3) See_Comment [Automated Episenciala ge] The system which generated this result transmitted reference range: 166 - 358 10*3/?L. The reference range was not used to interpret this result as normal/abnormal. MPV (test code = 09639-8) 10.5 fL 9.5-12.9 NRBC/100 WBC (test code = 1770789851) See_Comment [Automated me ssage] The system which generated this result transmitted reference range: 0.0 - 10.0 /100 WBCs. The reference range was not used to interpret this result as normal/abnormal. NRBC x10^3 (test code = 8815918042) See_Comment [Automated me ssage] The system which generated this result transmitted reference range: 10*3/?L. The reference range was not used to interpret this result as normal/abnormal. GRAN MAT (NEUT) % (test code = 770-8) 57.5 % IMM GRAN % (test code = 8169236956) 0.40 % LYMPH % (test code = 736-9) 35.1 % MONO % (test code = 5905-5) 5.0 % EOS % (test code = 713-8) 1.5 % BASO % (test code = 706-2) 0.5 % GRAN MAT x10^3(ANC) (test code = 5400341222) 4.92 10*3/uL 1.88-7.09 IMM GRAN x10^3 (test code = 1490654889) 0.03 10*3/uL 0.00-0.06 LYMPH x10^3 (test code = 731-0) 3.00 10*3/uL 1.32-3.29 MONO x10^3 (test code = 742-7) 0.43 10*3/uL 0.33-0.92 EOS x10^3 (test code = 711-2) 0.13 10*3/uL 0.03-0.39 BASO x10^3 (test code = 704-7) 0.04 10*3/uL 0.01-0.[address] [id number] 17:11:00* Test Item Value Reference Range Interpretation Comme [facility] POCT PREG (test code = 1605) negative On board controls acceptable with C Line (test code = 3574) present POCT PREG LOT # (test code = 3575) [id number] POCT PREG TEST DATE ( test code = 3576) 12/17/23 Lab Interpretation (test cod e = 08625-8) Normal [facility], THINPREP, [id number] 14:44:39 * Test Item Value Reference Range Interpretation Comme [facility] SOURCE: (test code = 8001) Cervical/Vag inal SLIDES: (test code = 8011) 1 LMP: (test code = 8021) 2020 SPECIMEN ADEQUACY: (test code = 64420) (NOTE) Satisfactory for evaluation. Endocervical cells/transformation zone component present. INTERPRETATION: (test code = 93985) LSIL/EPITH. ABNORMALITY; SEE BELOW A -- ---- EPITHELIAL CELL ABNORMALITY Low Grade Squamous Intraepithelial Lesion (LSIL) ---- OTHER COMMENTS: (test code = 8081) (NOTE) Due to technical or specimen issues, imaging could not beperformed. A assistant professor sculpture has manually screened this slide. EXTRUSION DIE COORDINATOR: (test code = 8101) ABDIAS Ramos(ASCP) PATHOLOGIST INTERPRETATION BY: (test code = 8122) Tony Quigley M.D. LOCATION: (test code = 92364) (NOTE) Specimens proces sed at [facility], [address] [place] [address], , CLIA: [id number] interpreted at [facility], [address] [place] [address], , CLIA:[id number] CPT: (test code = 8140) (NOTE) 66049, 99162, 88 142 UNLESS OTHERWISE INDICATED, COMPUTER AIDED AND EXTRUSION DIE COORDINATOR SCREENING PERFORMED. The Pap test is a screening test with an inherent, but low probability of error. Your patient should be reminded to consult you immediately if she experiences any suspicious signs or symptoms, regardless of her Pap test result. An alternate report format containing images or consolidated prior Pap history is available as applicable. HPV HIGH IF ABNORMAL [id number] 14:44:39* Test Item Value Reference Range Interpretation Comme nts HPV HIGH IF ABNORMAL THINPRE P (test code = 08363) SEE BELOW HPV HIGH RISK WITH GENOTYPE, [id number] 14:40:28* Test Item Value Reference Range Interpretation Comme nts HPV HIGH RISK INTERP (test code = 55844) POSITIVE NEGATIVE A HPV 16 (test code = 07741) NEGATIVE HPV 18 (test code = 50702) NEGATIVE HPV, HR, OTHER GENOTYPES (test code = 18124) POSITIVE A Testing methodol ogy is real-time PCR utilizing hydrolysis probes with the Jerman Jayme 4800 system. The test individually detects genotypes 16 and 18, as well as the other 12 high risk types (31,33,35,39,45,51,52,56 ,58,59,66,68). The expected result is negative. A negative result does not rule out the presence of HPV not included in the genotype set, a low level of infection or specimen sampling error. UNLESS OTHERWISE INDICATED, ALL TESTING PERFORMED [facility] [employer], [facility]. [address] [place] [address] ELECTRICAL PANEL BUILDER: NAHED JACOBSON M.D. [place] NUMBER [id number] [facility] [place]. [id number] HPV HIGH IF ABNORMAL [id number] 00:00:00* Test Item Value Reference Range Interpretation Comme nts HPV HIGH IF ABNORMAL THINPRE P (test code = 68503) SEE BELOW HPV HIGH RISK WITH GENOTYPE, TP [REFLEX]2022-06-25 00:00:00* Test Item Value Reference Range Interpretation Comme nts HPV HIGH RISK INTERP (test c ode = 01692) POSITIVE HPV 16 (test code = 54908) NEGATIVE HPV 18 (test code = 37954) NEGATIVE HPV, HR, OTHER GENOTYPES (te st code = 73891) POSITIVE HPV HIGH RISK WITH GENOTYPE, TP [REFLEX]2022-06-25 00:00:00* Test Item Value Reference Range Interpretation Comme nts HPV HIGH RISK INTERP (test c ode = 28130) POSITIVE HPV 16 (test code = 38184) NEGATIVE HPV 18 (test code = 28264) NEGATIVE HPV, HR, OTHER GENOTYPES (te st code = 68413) POSITIVE Garrett Georgette AustinPAP TEST, THINPREP, [id number] 00:00:00* Test Item Value Reference Range Interpretation Comme nts SOURCE: (test code = 8001) Cervical/Vaginal SLIDES: (test code = 8011) 1 LMP: (test code = 8021) 2020 SPECIMEN ADEQUACY: (test code = 19764) (NOTE) INTERPRETATION: (test code = 15118) LSIL/EPITH. ABNORMALITY; SEE BELOW OTHER COMMENTS: (test code = 8081) (NOTE) EXTRUSION DIE COORDINATOR: (test code = 8101) ABDIAS Ramos(ASCP) PATHOLOGIST INTERPRETATION BY: (test code = 8122) Tony Quigley M.D. LOCATION: (test code = 19995) (NOTE) CPT: (test code = 8140) (NOTE) Garrett Palomino AustinHPV HIGH IF ABNORMAL [id number] 00:00:00* Test Item Value Reference Range Interpretation Comme nts HPV HIGH IF ABNORMAL THINPRE P (test code = 05996) SEE BELOW Garrett Palomino AustinHPV HIGH RISK WITH GENOTYPE, TP [REFLEX]2022-06-25 00:00:00* Test Item Value Reference Range Interpretation Comme nts HPV HIGH RISK INTERP (test c ode = 94365) POSITIVE HPV 16 (test code = 81367) NEGATIVE HPV 18 (test code = 90752) NEGATIVE HPV, HR, OTHER GENOTYPES (te st code = 18948) POSITIVE Garrett Palomino AustinPAP TEST, THINPREP, [id number] 00:00:00* Test Item Value Reference Range Interpretation Comme nts SOURCE: (test code = 8001) Cervical/Vaginal SLIDES: (test code = 8011) 1 LMP: (test code = 8021) 2020 SPECIMEN ADEQUACY: (test code = 94071) (NOTE) INTERPRETATION: (test code = 69441) LSIL/EPITH. ABNORMALITY; SEE BELOW OTHER COMMENTS: (test code = 8081) (NOTE) EXTRUSION DIE COORDINATOR: (test code = 8101) ABDIAS Ramos(ASCP) PATHOLOGIST INTERPRETATION BY: (test code = 8122) Tony Quigley M.D. LOCATION: (test code = 16396) (NOTE) CPT: (test code = 8140) (NOTE) Garrett Palomino AustinHPV HIGH IF ABNORMAL [id number] 00:00:00* Test Item Value Reference Range Interpretation Comme nts HPV HIGH IF ABNORMAL THINPRE P (test code = 57410) SEE BELOW Garrett Palomino AustinPAP TEST, THINPREP, [id number] 00:00:00* Test Item Value Reference Range Interpretation Comme nts SOURCE: (test code = 8001) Cervical/Vaginal SLIDES: (test code = 8011) 1 LMP: (test code = 8021) 2020 SPECIMEN ADEQUACY: (test code = 02744) (NOTE) INTERPRETATION: (test code = 53971) LSIL/EPITH. ABNORMALITY; SEE BELOW OTHER COMMENTS: (test code = 8081) (NOTE) EXTRUSION DIE COORDINATOR: (test code = 8101) ABDIAS Ramos(ASCP) PATHOLOGIST INTERPRETATION BY: (test code = 8122) Tony Quigley M.D. LOCATION: (test code = 94358) (NOTE) CPT: (test code = 8140) (NOTE) CT/NG, TMA, [id number] 19:07:10* Test Item Value Reference Range Interpretation Comme nts GONORRHEA, TMA (test code = 17769) NEGATIVE NEGATIVE Assay methodolog y is nucleic acid amplification by landfill gas collection operator mediated amplification (TMA) utilizing the Aptima Combo 2 Assay. CHLAMYDIA, TMA (test code = 03549) NEGATIVE NEGATIVE Assay methodolog y is nucleic acid amplification by landfill gas collection operator mediated amplification (TMA) utilizing the Aptima Combo 2 Assay. VAGINAL PATHOGENS DNA [id number] 15:43:09* Test Item Value Reference Range Interpretation Comme nts JOVANY SPECIES (test code = 66169) POSITIVE NEGATIVE A G. VAGINALIS (test code = 79603) POSITIVE NEGATIVE A T. VAGINALIS (test code = 32951) NEGATIVE NEGATIVE UNLESS OTHERWISE INDICATED, ALL TESTING PERFORMED [facility] [address] [place] [address] ELECTRICAL PANEL BUILDER: NAHED JACOBSON M.D. CLIA NUMBER [id number] [facility] [place]. [id number] HIV 1/2 4TH GEN, RFLX [id number] 06:55:46* Test Item Value Reference Range Interpretation Comme nts HIV 1/2 4TH GEN, RFLX CONF ( test code = 3514) NON-REACTIVE NON-REACTIVE [id number] 06:51:55* Test Item Value Reference Range Interpretation Comme nts PROLACTIN (test code = 2800) 17.2 NG/ML 5.0-37.0 NOTE: Methodolog y is The [employer] Foundationas Electrochemiluminescence Immunoassay (ECLIA). Values obtained with different assays/manufacturers cannot be used interchangeably. Results should not be used as sole basis to establish the presence or absence of malignancy. GC AND CHLAMYDIA AMPLIFIED, [id number] 00:00:00* Test Item Value Reference Range Interpretation Comme nts GONORRHEA, TMA (test code = 64522) NEGATIVE CHLAMYDIA, TMA (test code = 05454) NEGATIVE GC AND CHLAMYDIA AMPLIFIED, [id number] 00:00:00* Test Item Value Reference Range Interpretation Comme nts GONORRHEA, TMA (test code = 97340) NEGATIVE CHLAMYDIA, TMA (test code = 43174) NEGATIVE Garrett SanGC AND CHLAMYDIA AMPLIFIED, [id number] 00:00:00* Test Item Value Reference Range Interpretation Comme nts GONORRHEA, TMA (test code = 04670) NEGATIVE CHLAMYDIA, TMA (test code = 21666) NEGATIVE Garrett SanFree T4 and TSH panel - Serum or [id number] 00:00:00* Test Item Value Reference Range Interpretation Comme nts Thyrotropin [Units/volume] i n Serum or Plasma by Detection limit <= 0.005 mIU/L (test code = 14003-0) <0.005 0.450-4.500 L Thyroxine (T4) free [Mass/vo lume] in Serum or Plasma (test code = 3024-7) 1.55 NG/dL 0.82-1.77 [facility] W Auto Differential panel - [id number] 00:00:00* Test Item Value Reference Range Interpretation [...] immature cells (test code = immature cells) health promoter Neutrophils [#/volume] in Bl ood by Automated [...] Blood by Automated count (test code = 33424-1) 0 % not estab. Immature granulocytes [#/volume] in Blood by Automated count (test code = 53740-7) 0.0 x10e3/uL 0.0-0.1 Nucleated erythrocytes/100 leukocytes [Ratio] in Blood by Automated count (test code = 24888-9) health promoter Morphology [Interpretation] in Blood Narrative (test code = 87062-2) health promoter [facility] - Serum or [id number] 00:00:00* Test Item Value Reference Range Interpretation [...] Serum or Plasma (test code = 2074-0) 103 mmol/L 96-106 Carbon dioxide, total [Moles/volume] in Serum or Plasma (test code = 2027-) 21 mmol/L 20-29 Calcium [Mass/volume] in Serum or Plasma (test code = 30008-7) 8.9 mg/dL 8.7-10.2 Protein [Mass/volume] in Serum or Plasma (test code = 2885-2) 6.3 g/dL 6.0-8.5 Albumin [Mass/volume] in Serum or Plasma (test code = 1751-7) 4.1 g/dL 3.9-5.0 Globulin [Mass/volume] in Serum by calculation (test code = 73055-2) 2.2 g/dL 1.5-4.5 Albumin/Globulin [Mass Ratio ] [...] [facility] MedicalTriiodothyronine (T3) [Mass/volume] in Serum or [id number] 00:00:00* Test Item Value Reference Range Interpretation Comme nts Triiodothyronine (T3) [Mass/ volume] in Serum or Plasma (test code = 3053-6) 190 NG/dL 71-180 H [facility] MedicalCT/NG, NAAT, [id number] 10:58:33* Test Item Value Reference Range Interpretation Comme nts GONORRHEA, NAAT (test code = 15542) NEGATIVE NEGATIVE IMPORTANT NO ANTONETTE: SEE ANNOUNCEMENT AT [email or web address] Note: Assay methodology is nucleic acid amplification by landfill gas collection operator mediated amplification (TMA) utilizing the Aptima Combo 2 Assay. CHLAMYDIA, NAAT (test code = 99003) POSITIVE NEGATIVE A IMPORTANT NO ANTONETTE: SEE ANNOUNCEMENT AT [email or web address] Note: Assay methodology is nucleic acid amplification by landfill gas collection operator mediated amplification (TMA) utilizing the Aptima Combo 2 Assay. GC AND CHLAMYDIA, AMPLIFIED, [id number] 00:00:00* Test Item Value Reference Range Interpretation Comme nts GONORRHEA, NAAT (test code = 45078) NEGATIVE CHLAMYDIA, NAAT (test code = 18546) POSITIVE Garertt F AustinGC AND CHLAMYDIA, AMPLIFIED, [id number] 00:00:00* Test Item Value Reference Range Interpretation Comme nts GONORRHEA, NAAT (test code = 73039) NEGATIVE CHLAMYDIA, NAAT (test code = 67192) POSITIVE Garrett F AustinGC AND CHLAMYDIA, AMPLIFIED, [id number] 00:00:00* Test Item Value Reference Range Interpretation Comme nts GONORRHEA, NAAT (test code = 45849) NEGATIVE CHLAMYDIA, NAAT (test code = 87530) POSITIVE VAGINAL PATHOGENS DNA [id number] 13:27:01* Test Item Value Reference Range Interpretation Comme nts JOVANY SPECIES (test code = ) POSITIVE NEGATIVE A G. VAGINALIS (test code = 31184) NEGATIVE NEGATIVE T. VAGINALIS (test code = 43896) NEGATIVE NEGATIVE UNLESS OTHERWISE INDICATED, ALL TESTING PERFORMED [facility] [employer] [address] [place] [address] ELECTRICAL PANEL BUILDER: NAHED JACOBSON M.D. IA NUMBER [id number] [facility] [place]. [id number] VAGINAL PATHOGENS DNA [id number] 00:00:00* Test Item Value Reference Range Interpretation Comme nts JOVANY SPECIES (test code = 84697) POSITIVE G. VAGINALIS (test code = 87358) NEGATIVE T. VAGINALIS (test code = 38759) NEGATIVE VAGINAL PATHOGENS DNA [id number] 00:00:00* Test Item Value Reference Range Interpretation Comme nts JOVANY SPECIES (test code = 27753) POSITIVE G. VAGINALIS (test code = 14798) NEGATIVE T. VAGINALIS (test code = 19149) NEGATIVE Garrett SanVAGINAL PATHOGENS DNA [id number] 00:00:00* Test Item Value Reference Range Interpretation Comme nts JOVANY SPECIES (test code = 23664) POSITIVE G. VAGINALIS (test code = 24116) NEGATIVE T. VAGINALIS (test code = 18836) NEGATIVE [facility] WITH [id number] 06:05:23* Test Item Value Reference Range Interpretation [...] 32.8 g/dL 31.6-35.1 RDW-SD (test code = 34876-8) 44.6 fL 39.0-49.9 RDW-CV (test code = 788-0) 14.8 % 12.0-15.5 PLT (test code = 777-3) See_Comment [Automated message] The system which generated this result transmitted reference range: 166 - 358 10*3/?L. The reference range was not used to interpret this result as normal/abnormal. MPV (test code = 32621-2) 10.8 fL 9.5-12.9 NRBC/100 WBC (test code = 8535400629) See_Comment [Automated message] The system which generated this result transmitted reference range: 0.0 - 10.0 /100 WBCs. The reference range was not used to interpret this result as normal/abnormal. NRBC x10^3 (test code = 9842021131) <0.01 See_Comment [Automated message] The system which generated this result transmitted reference range: 10*3/?L. The reference range was not used to interpret this result as normal/abnormal. GRAN MAT (NEUT) % (test code = 770-8) 83.7 % IMM GRAN % (test code = 0816678179) 0.50 % LYMPH % (test code = 736-9) 10.9 % MONO % (test code = 5905-5) 4.1 % EOS % (test code = 713-8) 0.5 % BASO % (test code = 706-2) 0.3 % GRAN MAT x10^3(ANC) (test code = 5854288367) 15.99 10*3/uL 1.88-7.09 H IMM GRAN x10^3 (test code = 8542574610) 0.10 10*3/uL 0.00-0.06 H LYMPH x10^3 (test code = 731-0) 2.08 10*3/uL 1.32-3.29 MONO x10^3 (test code = 742-7) 0.78 10*3/uL 0.33-0.92 EOS x10^3 (test code = 711-2) 0.09 10*3/uL 0.03-0.39 BASO x10^3 (test code = 704-7) 0.06 10*3/uL 0.01-0.07 BANDS (test code = 9233340830) Increased A Lab Interpretation (test code = 07664-9) [facility]normal [facility] [id number] 05:54:00* Test Item Value Reference Range Interpretation Comme nts POCT PREG (test code = 1605) negative Lab Interpretation (test cod e = 46959-6) Normal [facility] METABOLIC PANEL (58676)2021-12-21 05:45:23* Test Item Value Reference Range Interpretation Comme nts NA (test code = 9476254315) 139 mmol/L 135-145 K (test code = 7689615179) 4.1 mmol/L 3.5-5.0 CL (test code = 2422242614) 103 mmol/L 98-108 CO2 TOTAL (test code = 2352787503) 22 mmol/L 23-31 L AGAP (test code = 2734687956) 2-16 BUN (test code = 0810840945) 18 mg/dL 7-23 GLUCOSE (test code = 9107436191) 116 mg/dL 70-110 H CREATININE (test code = 8626728368) 0.79 mg/dL 0.50-1.04 TOTAL BILI (test code = 0915213741) 0.5 mg/dL 0.1-1.1 CALCIUM (test code = 8789380435) 9.3 mg/dL 8.6-10.6 T PROTEIN (test code = 5102869856) 8.3 g/dL 6.3-8.2 H ALBUMIN (test code = 1185010634) 5.3 g/dL 3.5-5.0 H ALK PHOS (test code = 3714318173) 156 U/L 34-122 H ALTv (test code = 1742-6) 27 U/L 5-35 AST(SGOT) (test code = 4445889894) 36 U/L 13-40 eGFR (test code = 5056259273) mL/min/1.73m2 ANIBAL (test code = ANIBAL) Association [...] imaging tests). Lab Interpretation (test code = 15301-2) [facility]normal [facility] CenterMAG[facility]UM2022-03-05 05:45:23* Test Item Value Reference Range Interpretation Comme nts MAGNESIUM (test code = 9981498428) 1.9 mg/dL 1.7-2.4 Lab Interpretation (test cod e = 63603-4) Normal [facility] T4 and TSH panel - Serum or Plasma 2021-12-06 00:00:00* Test Item Value Reference Range Interpretation Comme nts Thyrotropin [Units/volume] i n Serum or Plasma by Detection limit <= 0.005 mIU/L (test code = 30748-7) <0.005 0.450-4.500 L Thyroxine (T4) free [Mass/vo lume] in Serum or Plasma (test code = 3024-7) 0.79 NG/dL 0.82-1.77 L [facility] W Auto Differential panel - [id number] 00:00:00* Test Item Value Reference Range Interpretation [...] immature cells (test code = immature cells) health promoter Neutrophils [#/volume] in Bl ood by Automated [...] Blood by Automated count (test code = 77516-7) 0 % not estab. Immature granulocytes [#/volume] in Blood by Automated count (test code = 85990-7) 0.0 x10e3/uL 0.0-0.1 Nucleated erythrocytes/100 leukocytes [Ratio] in Blood by Automated count (test code = 61206-2) health promoter Morphology [Interpretation] in Blood Narrative (test code = 99901-3) health promoter [facility] 2000 panel - Serum or [id number] 00:00:00* Test Item Value Reference Range Interpretation [...] by Creatinine-based formula (CKD-EPI) (test code = 59698-4) 120 mL/min/1.73 >59 Glomerular filtration rate/1.73 sq M.predicted among blacks [Volume Rate/Area] in Serum, Plasma or Blood by Creatinine-based formula (CKD-EPI) (test code = 90462-9) 139 mL/min/1.73 >59 Urea nitrogen/Creatinine [Mass Ratio] in Serum or Plasma (test code = 3097-3) 13 9-23 Sodium [Moles/volume] in Serum or Plasma (test code = 2951-2) 141 mmol/L 134-144 Potassium [Moles/volume] in Serum or Plasma (test code = 2823-3) 4.1 mmol/L 3.5-5.2 Chloride [Moles/volume] in Serum or Plasma (test code = 2075-0) 104 mmol/L 96-106 Carbon dioxide, total [Moles/volume] in Serum or Plasma (test code = 8-9) 21 mmol/L 20-29 Calcium [Mass/volume] in Serum or Plasma (test code = 58791-1) 9.2 mg/dL 8.7-10.2 Protein [Mass/volume] in Serum or Plasma (test code = 2885-2) 6.8 g/dL 6.0-8.5 Albumin [Mass/volume] in Serum or Plasma (test code = 1751-7) 4.5 g/dL 3.9-5.0 Globulin [Mass/volume] in Serum by calculation (test code = 33449-6) 2.3 g/dL 1.5-4.5 Albumin/Globulin [Mass Ratio ] in Serum or Plasma (test code = 1759-0) 2.0 1.2-2.2 Bilirubin.total [Mass/volume ] in Serum or Plasma (test code = 1974-2) 0.2 mg/dL 0.0-1.2 Alkaline phosphatase [Enzymatic activity/volume] in Serum or Plasma (test code = 6768-6) 160 IU/L 44-121 H Aspartate aminotransferase [Enzymatic activity/volume] in Serum or Plasma (test code = 1920-8) 14 IU/L 0-40 Alanine aminotransferase [Enzymatic activity/volume] in Serum or Plasma (test code = 1742-6) 19 IU/L 0-32 [facility] MedicalTriiodothyronine (T3) [Mass/volume] in Serum or [id number] 00:00:00* Test Item Value Reference Range Interpretation Comme nts Triiodothyronine (T3) [Mass/ volume] in Serum or Plasma (test code = 3053-6) 104 NG/dL 71-180 [facility] MedicalTROPONIN [id number] 06:47:56* Test Item Value Reference Range Interpretation Comments TROPONIN I (test code = 6999194730) 0.000 ng/mL See_Comment [Automated message] The system [...] of biotin. Lab Interpretation (test code = 15611-5) Normal [facility] Center[facility]MINAL [id number] 06:44:35* Test Item Value Reference Range Interpretation Comme nts NT-proBNP (test code = 3728644958) 102 pg/mL See_Comment [Automated message] The system which generated this result transmitted reference range: <=125. The reference range was not used to interpret this result as normal/abnormal. ANIBAL (test code = ANIBAL) Biotin has been reported to cause a negative bias, interpret results relative to patient's use of biotin. Lab Interpretation (test code = 83891-0) Normal [facility] CenterCOMP[facility] METABOLIC PANEL (02436)2021-11-03 06:35:53* Test Item Value Reference Range Interpretation Comme nts NA (test code = 4268569392) 138 mmol/L 135-145 K (test code = 3127755165) 3.6 mmol/L 3.5-5.0 CL (test code = 9356846922) 107 mmol/L 98-108 CO2 TOTAL (test code = 5551134834) 23 mmol/L 23-31 AGAP (test code = 4483132832) 2-16 BUN (test code = 2876955683) 12 mg/dL 7-23 GLUCOSE (test code = 2162760764) 88 mg/dL 70-110 CREATININE (test code = 2852347591) 0.50 mg/dL 0.50-1.04 TOTAL BILI (test code = 2827040548) 0.3 mg/dL 0.1-1.1 CALCIUM (test code = 8352483312) 9.1 mg/dL 8.6-10.6 T PROTEIN (test code = 3282073687) 6.6 g/dL 6.3-8.2 ALBUMIN (test code = 2375349549) 4.0 g/dL 3.5-5.0 ALK PHOS (test code = 3665356367) 146 U/L 34-122 H ALTv (test code = 1742-6) 29 U/L 5-35 AST(SGOT) (test code = 9459226857) 26 U/L 13-40 eGFR (test code = 1264051468) mL/min/1.73m2 ANIBAL (test code = NAIBAL) Association of Glomerular Filtration Rate (GFR) and [...] imaging tests). Lab Interpretation (test code = 63351-6) Abnormal [facility]-[id number] 06:33:52* Test Item Value Reference Range Interpretation Comments D-DIMER (test code = 7730799528) See_Comment H [Automated message] The system which [...] a diagnosis. Lab Interpretation (test code = 35812-8) Abnormal [facility] WITH [id number] 06:20:53* Test Item Value Reference Range Interpretation Comme nts WBC (test code = 6690-2) See_Comment H [Automated [employer]] The system which generated this result transmitted reference range: 4.30 - 11.10 10*3/?L. The reference range was not used to interpret this result as normal/abnormal. RBC (test code = 789-8) See_Comment [Automated [employer]] The system which generated this result transmitted [...] 32.9 g/dL 31.6-35.1 RDW-SD (test code = 89350-0) 37.9 fL 39.0-49.9 L RDW-CV (test code = 788-0) 13.0 % 12.0-15.5 PLT (test code = 777-3) See_Comment [Automated messa ge] The system which generated this result transmitted reference range: 166 - 358 10*3/?L. The reference range was not used to interpret this result as normal/abnormal. MPV (test code = 69502-4) 10.6 fL 9.5-12.9 NRBC/100 WBC (test code = 7261564169) See_Comment [Automated [employer]] The system which generated this result transmitted reference range: 0.0 - 10.0 /100 WBCs. The reference range was not used to interpret this result as normal/abnormal. NRBC x10^3 (test code = 4158734816) <0.01 See_Comment [Automated messa ge] The system which generated this result transmitted reference range: 10*3/?L. The reference range was not used to interpret this result as normal/abnormal. GRAN MAT (NEUT) % (test code = 770-8) 61.2 % IMM GRAN % (test code = 2714281714) 0.30 % LYMPH % (test code = 736-9) 31.0 % MONO % (test code = 5905-5) 5.4 % EOS % (test code = 713-8) 1.7 % BASO % (test code = 706-2) 0.4 % GRAN MAT x10^3(ANC) (test code = 5729115940) 6.99 10*3/uL 1.88-7.09 IMM GRAN x10^3 (test code = 7494468180) 0.03 10*3/uL 0.00-0.06 LYMPH x10^3 (test code = 731-0) 3.54 10*3/uL 1.32-3.29 H MONO x10^3 (test code = 742-7) 0.62 10*3/uL 0.33-0.92 EOS x10^3 (test code = 711-2) 0.19 10*3/uL 0.03-0.39 BASO x10^3 (test code = 704-7) 0.04 10*3/uL 0.01-0.07 Lab Interpretation (test code = 23770-6) [facility]normal [facility] [id number] 06:19:00* Test Item Value Reference Range Interpretation Comme nts POCT PREG (test code = 1605) negative On board controls acceptable with C Line (test code = 3574) present POCT PREG LOT # (test code = 3575) [id number] POCT PREG TEST DATE ( test code = 3576) 2022-12-16 Lab Interpretation (test cod e = 17598-3) Normal [facility] T4 and TSH panel - Serum or Plasma 2021-10-15 00:00:00* Test Item Value Reference Range Interpretation Comme nts Thyrotropin [Units/volume] i n Serum or Plasma by Detection limit <= 0.005 mIU/L (test code = 48389-1) <0.005 0.450-4.500 L Thyroxine (T4) free [Mass/vo lume] in Serum or Plasma (test code = 3024-7) 3.58 NG/dL 0.82-1.77 [facility] 2000 panel - Serum or [id number] 00:00:00* Test Item Value Reference Range Interpretation [...] by Creatinine-based formula (CKD-EPI) (test code = 77741-9) 136 mL/min/1.73 >59 Glomerular filtration rate/1.73 sq M.predicted among blacks [Volume Rate/Area] in Serum, Plasma or Blood by Creatinine-based formula (CKD-EPI) (test code = 47621-2) 157 mL/min/1.73 >59 Urea nitrogen/Creatinine [Mass Ratio] in Serum or Plasma (test code = 3097-3) 22 9-23 Sodium [Moles/volume] in Serum or Plasma (test code = 2951-2) 139 mmol/L 134-144 Potassium [Moles/volume] in Serum or Plasma (test code = 2823-3) 4.4 mmol/L 3.5-5.2 Chloride [Moles/volume] in Serum or Plasma (test code = 2075-0) 105 mmol/L 96-106 Carbon dioxide, total [Moles/volume] in Serum or Plasma (test code = 2027-9) 21 mmol/L 20-29 Calcium [Mass/volume] in Serum or Plasma (test code = 48125-7) 10.0 mg/dL 8.7-10.2 Protein [Mass/volume] in Serum or Plasma (test code = 2885-2) 6.8 g/dL 6.0-8.5 Albumin [Mass/volume] in Serum or Plasma (test code = 1751-7) 4.3 g/dL 3.9-5.0 Globulin [Mass/volume] in Serum by calculation (test code = 12603-1) 2.5 g/dL 1.5-4.5 Albumin/Globulin [Mass Ratio ] [...] (test code = 1742-6) 26 IU/L 0-32 [facility] MedicalTriiodothyronine (T3) [Mass/volume] in Serum or [id number] 00:00:00* Test Item Value Reference Range Interpretation Comme nts Triiodothyronine (T3) [Mass/ volume] in Serum or Plasma (test code = 3053-6) 407 NG/dL 71-180 [facility] Differential panel - [id number] 00:00:00* Test Item Value Reference Range Interpretation [...] immature cells (test code = immature cells) health promoter Neutrophils [#/volume] in Bl ood by Automated [...] Blood by Automated count (test code = 48850-3) 0 % not estab. Immature granulocytes [#/volume] in Blood by Automated count (test code = 11000-3) 0.0 x10e3/uL 0.0-0.1 Nucleated erythrocytes/100 leukocytes [Ratio] in Blood by Automated count (test code = 10263-2) health promoter Morphology [Interpretation] in Blood Narrative (test code = 27916-3) health promoter [facility] MedicalCHLAMYDIA, AMPLIFIED, [id number] 00:00:00* Test Item Value Reference Range Interpretation Comme nts CHLAMYDIA, NAAT (test code = 10267) NEGATIVE Garrett Georgette AustinGC, AMPLIFIED, [id number] 00:00:00* Test Item Value Reference Range Interpretation Comme nts GONORRHEA, NAAT (test code = 32113) NEGATIVE Garrett F AustinCHLAMYDIA, AMPLIFIED, [id number] 00:00:00* Test Item Value Reference Range Interpretation Comme nts CHLAMYDIA, NAAT (test code = 68873) NEGATIVE Garrett F AustinGC, AMPLIFIED, [id number] 00:00:00* Test Item Value Reference Range Interpretation Comme nts GONORRHEA, NAAT (test code = 52376) NEGATIVE Garrett F AustinCHLAMYDIA, AMPLIFIED, [id number] 00:00:00* Test Item Value Reference Range Interpretation Comme nts CHLAMYDIA, NAAT (test code = 62263) NEGATIVE GC, AMPLIFIED, [id number] 00:00:00* Test Item Value Reference Range Interpretation Comme nts GONORRHEA, NAAT (test code = 77731) NEGATIVE RPR REFLEX TO T. PALLIDUM - PA [ADDED]2021-07-20 00:00:00* Test Item Value Reference Range Interpretation Comme nts RPR (test code = 11277) NON-REACTIVE RPR TITER (test code = 3500) NOT INDIC. TITER RPR REFLEX TO T. PALLIDUM - PA [ADDED]2021-07-20 00:00:00* Test Item Value Reference Range Interpretation Comme nts RPR (test code = 45673) NON-REACTIVE RPR TITER (test code = 3500) NOT INDIC. TITER Garrett SanHIV AB/AG COMBO RFLX [id number] 00:00:00* Test Item Value Reference Range Interpretation Comme nts HIV 1/2 4TH GEN, RFLX CONF ( test code = 3514) NON-REACTIVE Garrett SanVAGINAL PATHOGENS DNA [id number] 00:00:00* Test Item Value Reference Range Interpretation Comme nts JOVANY SPECIES (test code = 66327) NEGATIVE G. VAGINALIS (test code = 76757) POSITIVE T. VAGINALIS (test code = 76134) NEGATIVE Garrett SanACUTE HEPATITIS [id number] 00:00:00* Test Item Value Reference Range Interpretation Comme nts HEPATITIS A IgM (test code = 84357) NON-REACTIVE HEPATITIS B CORE IgM (test c ode = 4644) NON-REACTIVE HEPATITIS B SURF AG (test co de = 2739) NON-REACTIVE HEPATITIS C ANTIBODY (test c ode = 4675) NON-REACTIVE INTERPRETATION HEPATITIS A: (test code = 2552) (NOTE) INTERPRETATION HEPATITIS B: (test code = 88764) (NOTE) INTERPRETATION HEPATITIS C: (test code = 97027) (NOTE) Garrett Palomino AustinUNLABELLED SPECIMEN [ADDED]2021-07-20 00:00:00* Test Item Value Reference Range Interpretation Comme nts NOTE: (test code = 29482) Garrett Palomino AustinRPR REFLEX TO T. PALLIDUM - PA [ADDED]2021-07-20 00:00:00* Test Item Value Reference Range Interpretation Comme nts RPR (test code = 96316) NON-REACTIVE RPR TITER (test code = 3500) NOT INDIC. TITER Garrett SanHIV AB/AG COMBO RFLX [id number] 00:00:00* Test Item Value Reference Range Interpretation Comme nts HIV 1/2 4TH GEN, RFLX CONF ( test code = 3514) NON-REACTIVE Garrett Palomino AustinVAGINAL PATHOGENS DNA [id number] 00:00:00* Test Item Value Reference Range Interpretation Comme nts JOVANY SPECIES (test code = ) NEGATIVE G. VAGINALIS (test code = 19372) POSITIVE T. VAGINALIS (test code = 89746) NEGATIVE Garrett SanACUTE HEPATITIS [id number] 00:00:00* Test Item Value Reference Range Interpretation Comme nts HEPATITIS A IgM (test code = 64314) NON-REACTIVE HEPATITIS B CORE IgM (test c ode = 4644) NON-REACTIVE HEPATITIS B SURF AG (test co de = 2739) NON-REACTIVE HEPATITIS C ANTIBODY (test c ode = 4675) NON-REACTIVE INTERPRETATION HEPATITIS A: (test code = 2552) (NOTE) INTERPRETATION HEPATITIS B: (test code = 90356) (NOTE) INTERPRETATION HEPATITIS C: (test code = 31953) (NOTE) Garrett SanUNLABELLED SPECIMEN [ADDED]2021-07-20 00:00:00* Test Item Value Reference Range Interpretation Comme nts NOTE: (test code = 33929) Garrett SanHIV AB/AG COMBO RFLX [id number] 00:00:00* Test Item Value Reference Range Interpretation Comme nts HIV 1/2 4TH GEN, RFLX CONF ( test code = 3514) NON-REACTIVE VAGINAL PATHOGENS DNA [id number] 00:00:00* Test Item Value Reference Range Interpretation Comme nts JOVANY SPECIES (test code = ) NEGATIVE G. VAGINALIS (test code = 24000) POSITIVE T. VAGINALIS (test code = 76529) NEGATIVE UNLABELLED SPECIMEN [ADDED]2021-07-20 00:00:00* Test Item Value Reference Range Interpretation Comme nts NOTE: (test code = 02887) ACUTE HEPATITIS [id number] 00:00:00* Test Item Value Reference Range Interpretation Comme nts HEPATITIS A IgM (test code = 09244) NON-REACTIVE HEPATITIS B CORE IgM (test c ode = 4644) NON-REACTIVE HEPATITIS B SURF AG (test co de = 2739) NON-REACTIVE HEPATITIS C ANTIBODY (test c ode = 4675) NON-REACTIVE INTERPRETATION HEPATITIS A: (test code = 2552) (NOTE) INTERPRETATION HEPATITIS B: (test code = 59659) (NOTE) INTERPRETATION HEPATITIS C: (test code = 78601) (NOTE) SARS-CoV-2 (COVID-19) by RT-PCR (HIGH RISK)2021-06-06 00:00:00* Test Item Value Reference Range Interpretation Comme nts SARS-CoV-2 INTERPRETATION (t est code = 49229) NEGATIVE SOURCE (test code = 80266) NOT SPECIFIED Garrett Palomino [id number] (COVID-19) by RT-PCR (HIGH RISK)2021-06-06 00:00:00* Test Item Value Reference Range Interpretation Comme nts SARS-CoV-2 INTERPRETATION (t est code = 00340) NEGATIVE SOURCE (test code = 73829) NOT SPECIFIED Garrett Palomino [id number] (COVID-19) by RT-PCR (HIGH RISK)2021-06-06 00:00:00* Test Item Value Reference Range Interpretation Comme nts SARS-CoV-2 INTERPRETATION (t est code = 02316) NEGATIVE SOURCE (test code = 23105) NOT SPECIFIED NOTE: [ADDED]2021-05-01 00:00:00* Test Item Value Reference Range Interpretation Comme nts NOTE: (test code = 998) (NOTE) VAGINAL PATHOGENS DNA PANEL [ADDED]2021-05-01 00:00:00* Test Item Value Reference Range Interpretation Comme nts JOVANY SPECIES (test code = 22206) NEGATIVE G. VAGINALIS (test code = 15225) POSITIVE T. VAGINALIS (test code = 09560) NEGATIVE Garrett Palomino AustinNOTE: [ADDED]2021-05-01 00:00:00* Test Item Value Reference Range Interpretation Comme nts NOTE: (test code = 998) (NOTE) Garrett Palomino AustinVAGINAL PATHOGENS DNA PANEL [ADDED]2021-05-01 00:00:00* Test Item Value Reference Range Interpretation Comme nts JOVANY SPECIES (test code = 20156) NEGATIVE G. VAGINALIS (test code = 67848) POSITIVE T. VAGINALIS (test code = 71062) NEGATIVE Garrett Palomino AustinNOTE: [ADDED]2021-05-01 00:00:00* Test Item Value Reference Range Interpretation Comme nts NOTE: (test code = 998) (NOTE) Garrett F AustinVAGINAL PATHOGENS DNA PANEL [ADDED]2021-05-01 00:00:00* Test Item Value Reference Range Interpretation Comme nts JOVANY SPECIES (test code = ) NEGATIVE G. VAGINALIS (test code = ) POSITIVE T. VAGINALIS (test code = ) NEGATIVE PAP TEST, THINPREP, [id number] 00:00:00* Test Item Value Reference Range Interpretation Comme nts SOURCE: (test code = 8001) Endocervical SLIDES: (test code = 8011) 1 LMP: (test code = 8021) 01/17/2021 SPECIMEN ADEQUACY: (test code = 17703) (NOTE) INTERPRETATION: (test code = 34949) ASCUS/EPITH. ABNORMALITY; SEE BELOW OTHER COMMENTS: (test code = 8081) (NOTE) EXTRUSION DIE COORDINATOR: (test code = 8101) ABDIAS Bynum(ASCP) QC TECHNOLOGIST: (test code = 8111) LATOYA Sagastume(ASCP)CT(IA C) PATHOLOGIST INTERPRETATION BY: (test code = 8122) Amita Morales M.D. LOCATION: (test code = 41238) (NOTE) CPT: (test code = 8140) (NOTE) PAP TEST, THINPREP, [id number] 00:00:00* Test Item Value Reference Range Interpretation Comme nts SOURCE: (test code = 800) Endocervical SLIDES: (test code = 801) 1 LMP: (test code = 8021) 01/17/2021 SPECIMEN ADEQUACY: (test code = 82077) (NOTE) INTERPRETATION: (test code = 05781) ASCUS/EPITH. ABNORMALITY; SEE BELOW OTHER COMMENTS: (test code = 8081) (NOTE) EXTRUSION DIE COORDINATOR: (test code = 8101) ABDIAS Bynum(ASCP) QC TECHNOLOGIST: (test code = 8111) LATOYA Sagastume(ASCP)CT(IA C) PATHOLOGIST INTERPRETATION BY: (test code = 8122) Amita Morales M.D. LOCATION: (test code = 93959) (NOTE) CPT: (test code = 8140) (NOTE) Garrett SanPAP TEST, THINPREP, [id number] 00:00:00* Test Item Value Reference Range Interpretation Comme nts SOURCE: (test code = 8001) Endocervical SLIDES: (test code = 8011) 1 LMP: (test code = 8021) 01/17/2021 SPECIMEN ADEQUACY: (test code = 18001) (NOTE) INTERPRETATION: (test code = 99905) ASCUS/EPITH. ABNORMALITY; SEE BELOW OTHER COMMENTS: (test code = 8081) (NOTE) EXTRUSION DIE COORDINATOR: (test code = 8101) Iman WiseCT(ASCP) QC TECHNOLOGIST: (test code = 8111) Yadira TatumSCT(ASCP)CT(IA C) PATHOLOGIST INTERPRETATION BY: (test code = 8122) Amita Morales M.D. LOCATION: (test code = 44108) (NOTE) CPT: (test code = 8140) (NOTE) Garrett Palomino AustinHIV AB/AG COMBO RFLX [id number] 00:00:00* Test Item Value Reference Range Interpretation Comme nts HIV 1/2 4TH GEN, RFLX CONF ( test code = 3514) NON-REACTIVE HPV HIGH RISK WITH GENOTYPE, [id number] 00:00:00* Test Item Value Reference Range Interpretation Comme nts HPV HIGH RISK INTERP (test c ode = 51683) POSITIVE HPV 16 (test code = 37536) NEGATIVE HPV 18 (test code = 85308) NEGATIVE HPV, HR, OTHER GENOTYPES (te st code = 52301) POSITIVE GC AND CHLAMYDIA, AMPLIFIED, [id number] 00:00:00* Test Item Value Reference Range Interpretation Comme nts GONORRHEA, NAAT (test code = 56329) NEGATIVE CHLAMYDIA, NAAT (test code = 79155) NEGATIVE HIV AB/AG COMBO RFLX [id number] 00:00:00* Test Item Value Reference Range Interpretation Comme nts HIV 1/2 4TH GEN, RFLX CONF ( test code = 3514) NON-REACTIVE Garrett Palomino AustinHPV HIGH RISK WITH GENOTYPE, [id number] 00:00:00* Test Item Value Reference Range Interpretation Comme nts HPV HIGH RISK INTERP (test c ode = 25983) POSITIVE HPV 16 (test code = 98723) NEGATIVE HPV 18 (test code = 10071) NEGATIVE HPV, HR, OTHER GENOTYPES (te st code = 57585) POSITIVE Garrett SanGC AND CHLAMYDIA, AMPLIFIED, [id number] 00:00:00* Test Item Value Reference Range Interpretation Comme nts GONORRHEA, NAAT (test code = 18045) NEGATIVE CHLAMYDIA, NAAT (test code = 57398) NEGATIVE Garrett SanACUTE HEPATITIS [id number] 00:00:00* Test Item Value Reference Range Interpretation Comme nts HEPATITIS A IgM (test code = 20428) NON-REACTIVE HEPATITIS B CORE IgM (test c ode = 4644) NON-REACTIVE HEPATITIS B SURF AG (test co de = 2739) NON-REACTIVE HEPATITIS C ANTIBODY (test c ode = 4675) NON-REACTIVE INTERPRETATION HEPATITIS A: (test code = 2552) (NOTE) INTERPRETATION HEPATITIS B: (test code = 50433) (NOTE) INTERPRETATION HEPATITIS C: (test code = 61183) (NOTE) Garrett SanGC AND CHLAMYDIA AMPLIFIED, [id number] 00:00:00* Test Item Value Reference Range Interpretation Comme nts GONORRHEA, TMA (test code = 55182) NEGATIVE CHLAMYDIA, TMA (test code = 73653) NEGATIVE Garrett [id number] 00:00:00* Test Item Value Reference Range Interpretation Comme nts RPR RESULT (test code = 3501) NON-REACTIVE RPR TITER (test code = 3500) NOT INDIC. TITER Garrett SanHIV AB/AG COMBO RFLX [id number] 00:00:00* Test Item Value Reference Range Interpretation Comme nts HIV 1/2 4TH GEN, RFLX CONF ( test code = 3514) NON-REACTIVE Garrett SanHPV HIGH RISK WITH GENOTYPE, [id number] 00:00:00* Test Item Value Reference Range Interpretation Comme lawson HPV HIGH RISK INTERP (test c ode = 68129) POSITIVE HPV 16 (test code = 08900) NEGATIVE HPV 18 (test code = 68582) NEGATIVE HPV, HR, OTHER GENOTYPES (te st code = 14565) POSITIVE Garrett SanGC AND CHLAMYDIA, AMPLIFIED, [id number] 00:00:00* Test Item Value Reference Range Interpretation Comme nts GONORRHEA, NAAT (test code = 50239) NEGATIVE CHLAMYDIA, NAAT (test code = 41567) NEGATIVE Garrett SanACUTE HEPATITIS [id number] 00:00:00* Test Item Value Reference Range Interpretation Comme nts HEPATITIS A IgM (test code = 46301) NON-REACTIVE HEPATITIS B CORE IgM (test c ode = 4644) NON-REACTIVE HEPATITIS B SURF AG (test co de = 2739) NON-REACTIVE HEPATITIS C ANTIBODY (test c ode = 4675) NON-REACTIVE INTERPRETATION HEPATITIS A: (test code = 2552) (NOTE) INTERPRETATION HEPATITIS B: (test code = 78381) (NOTE) INTERPRETATION HEPATITIS C: (test code = 95445) (NOTE) Garrett SanGC AND CHLAMYDIA AMPLIFIED, [id number] 00:00:00* Test Item Value Reference Range Interpretation Comme nts GONORRHEA, TMA (test code = 70993) NEGATIVE CHLAMYDIA, TMA (test code = 23879) NEGATIVE Garrett [id number] 00:00:00* Test Item Value Reference Range Interpretation Comme nts RPR RESULT (test code = 3501) NON-REACTIVE RPR TITER (test code = 3500) NOT INDIC. TITER Garrett Leavitt AND CHLAMYDIA AMPLIFIED, [id number] 00:00:00* Test Item Value Reference Range Interpretation Comme nts GONORRHEA, TMA (test code = 51879) NEGATIVE CHLAMYDIA, TMA (test code = 94748) NEGATIVE ACUTE HEPATITIS [id number] 00:00:00* Test Item Value Reference Range Interpretation Comme nts HEPATITIS A IgM (test code = 00470) NON-REACTIVE HEPATITIS B CORE IgM (test c ode = 4644) NON-REACTIVE HEPATITIS B SURF AG (test co de = 2739) NON-REACTIVE HEPATITIS C ANTIBODY (test c ode = 4675) NON-REACTIVE INTERPRETATION HEPATITIS A: (test code = 2552) (NOTE) INTERPRETATION HEPATITIS B: (test code = 07845) (NOTE) INTERPRETATION HEPATITIS C: (test code = 15349) (NOTE) [id number] 00:00:00* Test Item Value Reference Range Interpretation Comme nts RPR RESULT (test code = 3501) NON-REACTIVE RPR TITER (test code = 3500) NOT INDIC. TITER Notes Date/Time Note Provider Source 2024-06-20 20:40:23 Pt given printed and verbal discharge instructions regarding epigastric pain, encouraged hydration, 2 Prescription sent to pharmacy Pt verbalized understanding of instructions, pt awake alert oriented, resp reg unlabored, skin w/d, color appropriate for race, moves all ext well,pt encouraged to follow up with pcp Advised to seek medical attention for new/prolonged/worsening of symptoms, No adverse reaction to meds given in ER noted upon discharge PIV d'cd, dressing to site, catheter in tact. Awake, alert oriented, resp reg unlabored, skin w/d, pt leaving ambulatory without assist, in no apparent distress, Mookie Taylor RN [facility] 2024-06-20 19:08:28 Pt arrived ambulatory with complaints of epigastric pain and heartburn since this morning. Took tums without relief. Hx of stomach ulcer. Nasreen Lr RN [facility] 2024-06-20 19:03:00 [facility] Emergency Department Note Patient Name: Niru Robbins Date of : 2000 24 year old female Treatment Room: TX1/TX1 Primary Care Physician: Cynthia Mayo Patient Escorted by: Self [9] Mode of Arrival: Personal means [1] EMS Treatment Prior to ED Arrival: SITE DIRECTOR treatment: None Travel and Exposure Screening: Symptoms Does patient have any of these symptoms?: (not recorded) Exposure Screening Has patient had contact with someone with a communicable disease in the last month?: (not recorded) Diseases exposed to:: (not recorded) Is Patient ?: (not recorded) Exposure Date: (not recorded) Chief Complaint: Chief Complaint Patient presents with Epigastric Pain HEARTBURN History of Present Illness: Niru Robbins is a 24 year old female who presents to the ED with epigastric burning pain that began after pt ate some spicy foods. Has nausea. No vomiting. No fever/chills. No diarrhea or constipation History provided by: Patient, medical records and parent staff interpreter used: No Abdominal Pain Pain location: Epigastric Pain quality: burning Pain radiates to: Epigastric region Pain severity: Severe Onset quality: Sudden Duration: 1 day Timing: Sporadic Progression: Unchanged Chronicity: Recurrent Context: eating and previous surgery Context: not alcohol use, not awakening from sleep, not medication withdrawal, not recent travel, not retching, not sick contacts, not suspicious food intake and not trauma Relieved by: Nothing Worsened by: Nothing Ineffective treatments: OTC medications Associated symptoms: nausea Associated symptoms: no anorexia, no belching, no chest pain, no chills, no fever, no hematemesis, no hematochezia, no hematuria, no melena and no vomiting Risk factors: multiple surgeries Risk factors: no alcohol abuse, no aspirin use, not elderly, no NSAID use, not obese, not and no recent hospitalization Past Medical History/Immunizations: Past Medical History: Diagnosis Date BV (bacterial vaginosis) 05/09/2019 Graves disease High blood sugar History of appendectomy HTN (hypertension) Hypothyroidism Ovarian cyst 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 Alcohol Use Yes. Comments: socially Drug Use No. Sexual Activity Sexually active; Partners: Male; Control/Protection: Condom. Comments: last sexual intercourse 08/16/2019 Past Surgical History: Past Surgical History: Procedure Laterality Date APPENDECTOMY 2016 HERNIA REPAIR LAPAROSCOPIC CHOLECYSTECTOMY N/A 06/22/2021 Surgeon: Tate Zamorano MD; Location: [facility] Review of Systems: Review of Systems Constitutional: Negative. Negative for chills and fever. HENT: Negative. Eyes: Negative. Respiratory: Negative. Breasts: Negative. Cardiovascular: Negative. Negative for chest pain. Gastrointestinal: Positive for abdominal pain and nausea. Negative for anorexia, hematemesis, hematochezia, melena and vomiting. Genitourinary: Negative. Negative for hematuria. Musculoskeletal: Negative. Skin: Negative. Neurological: Negative. Psychiatric/Behavioral: Negative. All other systems reviewed and are negative. Endocrine: Endocrine negative Physical Exam: ED Triage Vitals [06/20/24 1909] Weight 74.3 kg (163 lb 14.4 oz) Actual or estimated Actual Height 1.499 m (4' 11") BP 115/80 Pulse 94 Resp 16 Temp 37 ?C (98.6 ?F) Temp source Oral SpO2 100 % Measured on Room air Physical Exam Vitals and nursing note reviewed. Constitutional: General: She is not in acute distress. Appearance: Normal appearance. She is well-developed and normal weight. She is not ill-appearing, toxic-appearing or diaphoretic. HENT: Head: Normocephalic and atraumatic. Nose: Nose normal. No congestion or rhinorrhea. Mouth/Throat: Mouth: Mucous membranes are moist. Pharynx: Oropharynx is clear. No oropharyngeal exudate or posterior oropharyngeal erythema. Eyes: General: No scleral icterus. Right eye: No discharge. Left eye: No discharge. Extraocular Movements: Extraocular movements intact. Conjunctiva/sclera: Conjunctivae normal. Pupils: Pupils are equal, round, and reactive to light. Neck: Thyroid: No thyromegaly. Vascular: No carotid bruit. Cardiovascular: Rate and Rhythm: Normal rate and regular rhythm. Pulses: Normal pulses. Heart sounds: Normal heart sounds. No murmur heard. Pulmonary: Effort: Pulmonary effort is normal. No respiratory distress. Breath sounds: Normal breath sounds. No stridor. No wheezing, rhonchi or rales. Chest: Chest wall: No tenderness. Abdominal: General: Bowel sounds are normal. There is no distension. Palpations: Abdomen is soft. There is no mass. Tenderness: There is no abdominal tenderness. There is no right CVA tenderness, left CVA tenderness, guarding or rebound. Hernia: No hernia is present. Musculoskeletal: General: No swelling, tenderness, deformity or signs of injury. Normal range of motion. Cervical back: Normal range of motion and neck supple. No rigidity or tenderness. Right lower leg: No edema. Left lower leg: No edema. Lymphadenopathy: Cervical: No cervical adenopathy. Skin: General: Skin is warm and dry. Capillary Refill: Capillary refill takes less than 2 seconds. Coloration: Skin is not jaundiced or pale. Findings: No bruising, erythema, lesion or rash. Neurological: General: No focal deficit present. Mental Status: She is alert and oriented to person, place, and time. Cranial Nerves: No cranial nerve deficit. Sensory: No sensory deficit. Motor: No weakness or abnormal muscle tone. Coordination: Coordination normal. Gait: Gait normal. Deep Tendon Reflexes: Reflexes normal. Psychiatric: Behavior: Behavior normal. Thought Content: Thought content normal. Judgment: Judgment normal. Radiology: No orders to display Lab Results: Lab Results POCT TEST - Normal Result Value Ref Range POCT PREG Negative On board controls acceptable with C Line Yes POCT PREG LOT # [id number] POCT PREG TEST DATE 02/25/2025 LIPASE - Normal LIPASE 95 0 - 220 U/L CBC WITH DIFF WBC 9.90 4.30 - 11.10 10*3/?L RBC 4.07 3.93 - 5.25 10*6/?L HGB 11.9 11.6 - 15.0 g/dL HCT 37.2 35.7 - 45.2 % MCV 91.4 80.6 - 95.5 fL MCH 29.2 25.9 - 32.8 pg MCHC 32.0 31.6 - 35.1 g/dL RDW-SD 44.5 39.0 - 49.9 fL RDW-CV 13.2 12.0 - 15.5 % PLT 268 166 - 358 10*3/?L MPV 11.3 9.5 - 12.9 fL NRBC/100 WBC 0.0 0.0 - 10.0 /100 WBCs NRBC x10 3 <0.01 10*3/?L GRAN MAT (NEUT) % 68.6 % IMM GRAN % 0.30 % LYMPH % 23.9 % MONO % 5.8 % EOS % 1.0 % BASO % 0.4 % GRAN MAT x10 3 (ANC) 6.79 1.88 - 7.09 10*3/uL IMM GRAN x10 3 0.03 0.00 - 0.06 10*3/uL LYMPH x10 3 2.37 1.32 - 3.29 10*3/uL MONO x10 3 0.57 0.33 - 0.92 10*3/uL EOS x10 3 0.10 0.03 - 0.39 10*3/uL BASO x10 3 0.04 0.01 - 0.07 10*3/uL COMP. METABOLIC PANEL (02464) NA 137 135 - 145 mmol/L K 3.7 3.5 - 5.0 mmol/L CL 101 98 - 108 mmol/L CO2 TOTAL 30 23 - 31 mmol/L AGAP 6 2 - 16 BUN 15 7 - 23 mg/dL GLUCOSE 81 70 - 110 mg/dL CREATININE 0.73 0.50 - 1.04 mg/dL TOTAL BILI 0.5 0.1 - 1.1 mg/dL CALCIUM 9.0 8.6 - 10.6 mg/dL T PROTEIN 7.2 6.3 - 8.2 g/dL ALBUMIN 4.0 3.5 - 5.0 g/dL ALK PHOS 57 34 - 122 U/L ALTv 20 5 - 35 U/L AST(SGOT) 25 13 - 40 U/L eGFR 116.5 mL/min/1.73m2 Orders and Treatments: Orders Placed This Encounter Procedures POCT TEST Cbc with Diff Comp. Metabolic Panel (64209) Lipase Orders Placed This Encounter Medications diphenhydrAMINE:lidocaine 2% viscous:maalox 1:1:1 (FIRST-MOUTHWASH BLM) oral suspension 15 mL ketorolac (TORADOL) injection 30 mg ondansetron (ZOFRAN (PF)) injection 4 mg pantoprazole (PROTONIX) 40 mg EC tablet ondansetron (ZOFRAN) 4 mg tablet First Provider Eval: ED Events Date/Time Event User Comments 06/20/241909 Medical Screening Begins JESUSITA BEAULIEU MD -- 06/20/241909 First Provider Evaluation JESUSITA BEAULIEU MD -- ED COURSE ED Course as of 06/20/242038Jun 20, [id number] Pain completely resolved with ED management [WY] ED Course User Index [WY] Jesusita Beaulieu MD Diagnosis/Impression as of 06/20/242038 Epigastric pain Procedures: Procedures MDM: Medical Decision Making Niru Robbins is a 24 year old female presenting with epigastric burning pain after eating spicy foods Problems Addressed: Epigastric pain: acute illness or injury Amount and/or Complexity of Data Reviewed Labs: ordered. Decision-making details documented in ED Course. Risk OTC drugs. Prescription drug management. Risk Details: Will refer to GI/PCP for further work-up with possible EGD Flowsheet Documentation: Scoring Tools: No data recorded Disposition/Condition: ED Disposition ED Disposition Disch - Home Condition Stable Comment -- Discharge Medications: Patient's Medications START taking these medications ONDANSETRON (ZOFRAN) 4 MG TABLET Take 1 tablet by mouth every 8 (eight) hours as needed for Nausea and Vomiting (N/V). PANTOPRAZOLE (PROTONIX) 40 MG EC TABLET Take 1 tablet by mouth in the morning. CONTINUE taking these medications which have NOT CHANGED IBUPROFEN 800 MG TABLET Take 1 tablet by mouth in the morning and 1 tablet at noon and 1 tablet in the evening. Take with meals. METHIMAZOLE 10 MG TABLET Take 2 tablets by mouth daily. METHOCARBAMOL 750 MG TABLET Take 1 tablet by mouth 4 (four) times daily. PROPRANOLOL 60 MG TABLET Take 1 tablet by mouth 2 (two) times daily. START taking Modified Medications as Prescribed No medications on file STOP taking these medications No medications on file Follow-up: Contact information for follow-up Cynthia Mayo MD Specialty: IM-INTERNAL MEDICINE Relationship: PCP - General [address] [facility] [id number] Yimi Anne MD Specialty: IM-GASTROENTEROLOGY [facility] [id number] [id number] Ramo Steele Specialty: IM-GASTROENTEROLOGY [address] [facility] [id number] Joe Staley MD Specialty: IM-GASTROENTEROLOGY [address] [facility] [id number] Electronically signed by: Jesusita Beaulieu MD 06/20/242039 [facility] 2024-03-21 01:03:15 Pt given printed and verbal discharge instructions regarding acute non intractable headache Pt verbalized understanding of instructions, pt awake alert oriented, resp reg unlabored, skin w/d, color appropriate for race, moves all ext well,pt encouraged to follow up with pcp Advised to seek medical attention for new/prolonged/worsening of symptoms No adverse reaction to meds given in ER noted upon discharge PIV d'cd, dressing to site, catheter in tact. Awake, alert oriented, resp reg unlabored, skin w/d, pt leaving amb with steady gait, in no apparent distress T [facility] 2024-03-21 00:51:13 Pt report headache pain is better, and pt is ready for D/C T [facility] 2024-03-20 23:48:06 Pt arrived with c/o headache, pressure behind L eye, nausea, and tingling down L arm around 10pm after work. 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 Luda Horan RN [facility] 2024-03-20 23:30:00 [facility] Emergency Department Note Patient Name: Niru Robbins Date of : 2000 23 year old female Treatment Room: Room/bed info not found Primary Care Physician: Cynthia Mayo Patient Escorted by: Family [5] Mode of Arrival: Personal means [1] EMS Treatment Prior to ED Arrival: SITE DIRECTOR treatment: None Travel and Exposure Screening: Symptoms Does patient have any of these symptoms?: (not recorded) Exposure Screening Has patient had contact with someone with a communicable disease in the last month?: (not recorded) Diseases exposed to:: (not recorded) Is Patient ?: (not recorded) Exposure Date: (not recorded) Chief Complaint: Chief Complaint Patient presents with Headache History of Present Illness: The patient presents from work for eval for left sided BURRIS that started around 1000pm this evening while getting off of work. No injury or trauma. Tried asa and not helping. BURRIS is worse with bright lights and loud sounds. Nausea but no vomiting. No fevers. No weakness to arms/legs. Has h/o migraines and last one was several months ago. LMP 5/14. Here for eval. 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 Alcohol Use Yes. Comments: socially Drug Use No. Sexual Activity Sexually active; Partners: Male; Control/Protection: Condom. Comments: last sexual intercourse 08/16/2019 Past Surgical History: Past Surgical History: Procedure Laterality Date APPENDECTOMY 2016 HERNIA REPAIR LAPAROSCOPIC CHOLECYSTECTOMY N/A 06/22/2021 Surgeon: Tate Zamorano MD; Location: [facility] Review of Systems: Review of Systems Constitutional: Negative for chills and fever. Eyes: Positive for photophobia. Respiratory: Negative for cough and shortness of breath. Cardiovascular: Negative for chest pain. Gastrointestinal: Negative for abdominal pain and vomiting. Genitourinary: Negative for dysuria. Musculoskeletal: Negative for arthralgias, neck pain and neck stiffness. Skin: Negative for wound. Neurological: Positive for headaches. Negative for dizziness. Psychiatric/Behavioral: Negative for agitation. Endocrine: Negative for goiter. Physical Exam: ED Triage Vitals [03/20/24 2338] Weight 72.6 kg (160 lb) Actual or estimated Height 1.499 m (4' 11") BP 126/74 Pulse 84 Resp 16 Temp 36.8 ?C (98.2 ?F) Temp source Oral SpO2 99 % Measured on Room air Physical Exam Vitals and nursing note reviewed. Constitutional: Appearance: Normal appearance. She is normal weight. HENT: Head: Normocephalic and atraumatic. Mouth/Throat: Mouth: Mucous membranes are dry. Cardiovascular: Rate and Rhythm: Normal rate and regular rhythm. Pulses: Normal pulses. Pulmonary: Effort: Pulmonary effort is normal. No respiratory distress. Breath sounds: No stridor. No rhonchi. Abdominal: General: There is no distension. Palpations: Abdomen is soft. There is no mass. Tenderness: There is no abdominal tenderness. There is no guarding. Hernia: No hernia is present. Musculoskeletal: General: Normal range of motion. Cervical back: Normal range of motion and neck supple. Skin: General: Skin is warm and dry. Neurological: General: No focal deficit present. Mental Status: She is alert and oriented to person, place, and time. 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 Orders and Treatments: No orders of the defined types were placed in this encounter. Orders Placed This Encounter Medications NaCl 0.9% (NS) bolus infusion 1,000 mL metoclopramide HCl (REGLAN) injection 10 mg ketorolac (TORADOL) injection 30 mg diphenhydrAMINE (BENADRYL) injection 25 mg First Provider Eval: ED Events Date/Time Event User Comments 03/20/242331 Medical Screening Begins DORIS DEAN DO -- 03/20/242331 First Provider Evaluation DORIS DEAN DO -- ED COURSE Diagnosis/Impression as of 03/21/24 0054 Acute nonintractable headache, unspecified headache type Procedures: Procedures MDM: Medical Decision Making The patient presents from home for evaluation for left-sided headache that started around 10 PM this evening while she was getting off from work. No injury or trauma. No fevers or chills. No neck pain or stiffness. She complains of nausea but no vomiting. She reports the headache is worse with bright lights. She tried some aspirin but it did not help. She does have a history of migraine headaches in the past and reports her last one was several months ago. No weakness to her arms or legs. Vital signs are stable here in the ER. Her neck is supple and without meningismus. Her speech is clear. No facial asymmetry. Handgrip right equals left. Muscle strength is 5/5 to upper extremities bilaterally. Steady gait. No concern for subarachnoid hemorrhage or bacterial meningitis based on her presentation. Will give the patient a migraine cocktail here in the ER. Anticipate discharge home later. 0054 -the patient is doing well here in the ER. Her headache has resolved after the medications given here in the ER. She remained stable here in the ER and is okay for discharge home with PCP follow-up. Problems Addressed: Acute nonintractable headache, unspecified headache type: acute illness or injury Risk OTC drugs. Prescription drug management. Flowsheet Documentation: Scoring Tools: No data recorded Disposition/Condition: ED Disposition ED Disposition Disch - Home Condition Stable Comment -- Discharge Medications: Patient's Medications START taking these medications No medications on file CONTINUE taking these medications which have NOT CHANGED IBUPROFEN 800 MG TABLET Take 1 tablet by mouth in the morning and 1 tablet at noon and 1 tablet in the evening. Take with meals. METHIMAZOLE 10 MG TABLET Take 2 tablets by mouth daily. METHOCARBAMOL 750 MG TABLET Take 1 tablet by mouth 4 (four) times daily. PROPRANOLOL 60 MG TABLET Take 1 tablet by mouth 2 (two) times daily. START taking Modified Medications as Prescribed No medications on file STOP taking these medications No medications on file Follow-up: Electronically signed by: Doris Dean DO 03/21/[address] [facility] 2024-03-05 00:40:27 Pt given printed and verbal discharge instructions regarding strains/sprains, & contusions. Prescriptions provided Discussed ibuprofen and to take with food to avoid GI distress. Pt verbalized understanding of instructions, pt awake alert oriented, resp reg unlabored, skin w/d, color appropriate for race, moves all ext well,pt encouraged to follow up with pcp. Advised to seek medical attention for new/prolonged/worsening of symptoms. Awake, alert oriented, resp reg unlabored, skin w/d, pt leaving amb with steady gait, in no apparent distress. [facility] 2024-03-05 00:36:09 Pt discharged with diagnosis of low back pain, strain of lumbar region, and contusion of L side of back. Printed and verbal instructions reviewed with and given to pt. Prescriptions given x 2. Pt verbalized understanding of teaching, medication, and recommended follow-up. Denies questions or concerns at this time. Pt ambulatory at discharge. Appears in no apparent distress. No ataxia noted. [facility] Suzie Currie RN [facility] 2024-03-04 21:08:32 Pt arrives ambulatory to ED reporting that she fell down about 5 stairs aprox 1 month ago. Says she b=never went to the dr afterward, but over the last couple of weeks has been having increasing pain to he back. She points out lower left and upper mid back. Rates pain 3/10 @ this time. Stephania Dean [facility] 19:56:41 Pt given printed and verbal discharge instructions regarding electrical injury. Pt verbalized understanding of instructions, pt awake alert oriented, resp reg unlabored, skin w/d, color appropriate for race, moves all ext well,pt encouraged to follow up with pcp. Advised to seek medical attention for new/prolonged/worsening of symptoms. Awake, alert oriented, resp reg unlabored, skin w/d, pt leaving amb with steady gait, in no apparent distress. [facility]ia [id number] 18:17:28 Mentions she was washing dishes and unplugged her fridge. Says she felt electricity current "shock" her to left hand. Mentions chest pressure and left arm "feeling weird". [facility] 11/02/2023 Hx - hyperthyroid. EINA Ritter [id number] 12:25:53 PT D/C home. GCS15, VS stable. Given D/C paperwork. Pt ambulatory at time of discharge. Pt educated on med usage, follow up care, s/s worsening condition, need for hydration. Pt verbalized understanding. Pt ambulated from ED in [facility] Pauly Duggan [facility]burg[facility]crtul2935-03-13 10:27:45 Patient states "I have really just been having some really sharp chest pains, it is like my third day." Patient denies cough. [facility] Hobson [facility] - [id number] 00:00:00 [facility]
--- NOTE | 2024-09-22 18:36 | RAD REPORT ---
EXAMINATION: ONE VIEW CHEST XR CLINICAL INDICATION: Female, 24 years old.,CHEST PAIN TECHNIQUE: Frontal chest projection is submitted. Examination is limited by patient positioning and t echnique. COMPARISON: 11/16/2023 FINDINGS: Mildly reduced penetration limits evaluation. The lungs are well inflated and clear. No pneumothorax or sizable effusion. The heart is normal in size. Mediastinal contours are unremarkable. IMPRESSION: No acute intrathoracic abnormalities.
[2024-09-22 19:38] LABS: Absolute Basophils 0.1 K/uL (0-0.5); Absolute Eosinophils 0.1 K/uL (0-0.5); Absolute Lymphocytes (CBC) 2.6 K/uL (0.7-4.9); Absolute Monocytes 0.5 K/uL (0.1-1.3); Absolute Neutrophil 5.7 K/uL (1.8-8.0); Basophils % 0.7 % (0-1.3); Eosinophils % 1.5 % (0-4.4); Hematocrit 40.8 % (36.0-45.0); Hemoglobin 13.2 g/dL (12.0-15.0); Lymphocytes % 29.1 % (15.3-44.8); MCH 28.5 pg (27.0-35.0); MCHC 32.5 g/dL (32.0-36.0); MCV 87.8 fL (80-100); MPV 9.7 fL (7.6-11.3); Monocytes % 5.5 % (3.3-12.3); Neutrophils % 63.2 % (41.7-73.7); Platelets 270 thou/uL (152-406); RBC Red Blood Cell Count 4.64 M/uL (3.86-4.86); Red Cell Distribution Width 13.9 % (12.1-15.2)
[2024-09-22 19:57] LABS: ALT/SGPT 26 U/L (13-56); AST/SGOT 15 U/L (15-37); Albumin 3.7 g/dL (3.4-5.0); Albumin/Globulin Ratio 0.9 (1.1-1.8); Alkaline Phosphatase 80 U/L (45-117); Anion Gap 7.6 mEq/L (5.0-15.0); BUN Blood Urea Nitrogen 14 mg/dL (7-18); Bicarbonate 28 mEq/L (21-32); Bilirubin Total 0.3 mg/dL (0.2-1.0); Globulin 4.1 g/dL (2.3-3.5); Glomerular Filtration Rate 100 ml/min (=/>90); Glucose Level 89 mg/dL (74-106); Magnesium 2.2 mg/dL (1.6-2.4); Potassium 3.6 mEq/L (3.5-5.1); Protein, Total 7.8 g/dL (6.4-8.2); Sodium Level 136 mEq/L (136-145)
[2024-09-22 19:59] LABS: Bilirubin Direct < 0.2 mg/dL (0-0.2); Bilirubin Indirect, Calculated 0.1 mg/dL (0.2-0.8); Troponin High Sensitivity < 3.0 pg/mL (<58.9)
--- NOTE | 2024-09-22 20:31 | ER ---
Nurse's Notes [facility] Name: Niru Castro Age: 24 yrs Sex: Female : 2000 Arrival Date: 09/22/2024 Time: 17:33 Bed 15 Private MD: Diagnosis: Chest pain, unspecified-noncardiac Presentation: 09/22 17:44 Chief complaint: Patient states: left chest pain for 3 days, had upper respiratory ko1 infection 2 weeks ago. Coronavirus screen: At this time, the client does not indicate any symptoms associated with coronavirus-19. Ebola Screen: No symptoms or risks identified at this time. Initial Sepsis Screen: Does the patient meet any 2 criteria? No. Patient's initial sepsis screen is negative. Does the patient have a suspected source of infection? No. Patient's initial sepsis screen is negative. Risk Assessment: Do you want to hurt yourself or someone else? Patient reports no desire to harm self or others. Onset of symptoms is unknown. 17:44 Method Of Arrival: Ambulatory ko1 17:44 Acuity: JOLLY 3 ko1 Triage Assessment: 17:47 General: Appears in no apparent distress. Behavior is calm, cooperative, appropriate ko1 for age. Pain: Complains of pain in anterior aspect of left upper chest. Cardiovascular: Reports chest pain. Historical: - Allergies: 17:47 No Known Allergies; ko1 - Home Meds: 17:47 None [Active]; ko1 - PMHx: 17:47 graves disease; ko1 - PSHx: 17:47 Appendectomy; Cholecystectomy; Repair of inguinal hernia; ko1 - Immunization history:: Adult Immunizations up to date. - Infectious Disease History:: Denies. - Social history:: Smoking status: Patient denies any tobacco usage or history of. Screenin:22 [facility] ED Fall Risk Assessment (Adult) History of falling in the last 3 months, jb4 including since admission No falls in past 3 months (0 pts) Confusion or Disorientation No (0 pts) Intoxicated or Sedated No (0 pts) Impaired Gait No (0 pts) Mobility Assist Device Used No (0 pt) Altered Elimination No (0 pt) Score/Fall Risk Level 0 - 2 = Low Risk Oriented to surroundings, Maintained a safe environment. Abuse screen: Denies threats or abuse. Nutritional screening: No deficits noted. Tuberculosis screening: No symptoms or risk factors identified. Assessment: 20:22 General: Appears in no apparent distress. comfortable, Behavior is calm, cooperative, jb4 appropriate for age. Pain: Complains of pain in chest Pain radiates to left arm Pain currently is 3 out of 10 on a pain scale. Quality of pain is described as aching. Neuro: Level of Consciousness is awake, alert, obeys commands, Oriented to person, place, time, situation. Cardiovascular: Patient's skin is warm and dry. Respiratory: Airway is patent Respiratory effort is even, unlabored, Respiratory pattern is regular, symmetrical. Derm: Skin is intact, Skin is pink, warm \T\ dry. Musculoskeletal: Circulation, motion, and sensation intact. Range of motion: intact in all extremities. Vital Signs: 17:44 BP 123 / 85; Pulse 92; Resp 15; Temp 97.6; Pulse Ox 100% ; ko1 ED Course: 17:35 Patient arrived in ED. im 17:39 Daily Crow PA-C is PHCP. sb4 17:39 Be Forbes MD is Attending Physician. sb4 17:47 Triage completed. ko1 17:47 Arm band placed on right wrist. Patient placed in an exam room, on a stretcher, on ko1 surveillance monitor, on pulse oximetry, Patient notified of wait time. 18:15 XRAY Chest (1 view) In Process Unspecified. EDMS 19:14 Report given to SIXTO PAIGE. cm10 19:45 Basic Metabolic Panel Sent. vk 19:45 LFT's Sent. vk 19:45 Magnesium Sent. vk 19:46 Inserted saline lock: 22 gauge in left antecubital area, using aseptic technique. Blood vk collected. Flushed with 10 mL NS. 19:46 Missed attempt(s): 20 gauge in right antecubital area. vk 19:46 Initial lab(s) drawn, by me, sent to lab. vk 19:47 Troponin HS Sent. vk 20:21 Rigo Chow, RN is Primary Nurse. jb4 20:22 Patient has correct armband on for positive identification. Bed in low position. Call jb4 light in reach. Side rails up X 1. Provided Education on: PLAN OF CARE. 20:46 Client placed on continuous cardiac and pulse oximetry monitoring. NIBP monitoring jb4 applied. shelter monitor on. Pulse ox on. 20:46 No provider procedures requiring assistance completed. IV discontinued, intact, jb4 bleeding controlled, No redness/swelling at site. Patient maintains SpO2 saturation greater than 95% on room air. Administered Medications: No medications were administered Medication: 20:22 VIS not applicable for this client. jb4 Outcome: 20:30 Discharge ordered by . sb4 20:46 Discharged to home ambulatory, jb4 20:46 Condition: stable 20:46 Discharge instructions given to patient, Instructed on discharge instructions, follow up and referral plans. medication usage, Demonstrated understanding of instructions, follow-up care, medications, Prescriptions given X 1, 20:46 Patient left the ED. jb4 Signatures: Dispatcher [employer] EDMS Rigo Chow RN RN jb4 Nazanin Martinez RN RN ko1 Daily Crow PAAmberC PACleopatra sb4 Cayla Alonso Clarissa RN RN cm10 Eloisa España Corrections: (The following items were deleted from the chart) 17:48 17:47 Home Meds: Methimazole 20mg Oral 1 tab daily; ko1 ko1 17:48 17:47 PMHx: HYPERGLYCEMIA; ko1 ko1 17:48 17:47 PMHx: hyperthyroidism; ko1 ko1
--- NOTE | 2024-09-22 20:31 | EDPHYS ---
Physician Documentation [facility] Name: Niru Castro Age: 24 yrs Sex: Female : 2000 Arrival Date: 09/22/2024 Time: 17:33 Bed 15 Private MD: ED Physician Be Forbes HPI: 09/22 19:34 This 24 yrs old Female presents to ER via Ambulatory with complaints of Chest sb4 Pain. 19:34 The patient or guardian reports chest pain that is located primarily in the anterior sb4 chest wall, left. The pain does not radiate. Associated signs and symptoms: The patient has no apparent associated signs or symptoms. The chest pain is described as sharp. Duration: The patient or guardian reports multiple episodes, with no pattern. Modifying factors: The symptoms are alleviated by nothing. the symptoms are aggravated by nothing. The patient has experienced similar episodes in the past, several times, today's symptoms are similar. sharp left sided chest pain x 3 days. was sick with URI/bronchitis 2 week ago. has history of hypothyroidism, was taken off meds 3 months ago because it was "under control". Historical: - Allergies: 17:47 No Known Allergies; ko1 - Home Meds: 17:47 None [Active]; ko1 - PMHx: 17:47 graves disease; ko1 - PSHx: 17:47 Appendectomy; Cholecystectomy; Repair of inguinal hernia; ko1 - Immunization history:: Adult Immunizations up to date. - Infectious Disease History:: Denies. - Social history:: Smoking status: Patient denies any tobacco usage or history of. ROS: 19:34 Constitutional: Negative for fever, chills, and weight loss, sb4 19:34 Cardiovascular: Positive for chest pain, 19:34 All other systems are negative, Exam: 19:34 Constitutional: This is a well developed, well nourished patient who is awake, alert, sb4 and in no acute distress. Head/Face: Normocephalic, atraumatic. Eyes: Extra-ocular motions intact. Periorbital areas with no swelling, redness, or edema. ENT: Mucous membranes moist. Cardiovascular: Regular rate and rhythm with a normal S1 and S2. Respiratory: No increased work of breathing, no retractions or nasal flaring. Abdomen/GI: Soft, non-tender, no distension. Skin: Warm, dry with normal turgor. Normal color with no rashes, no lesions, and no evidence of cellulitis. 19:34 Chest/axilla: Inspection: normal, Palpation: tenderness, that is mild, of the anterior aspect of left upper chest, that partially reproduces the patient's complaints, Vital Signs: 17:44 BP 123 / 85; Pulse 92; Resp 15; Temp 97.6; Pulse Ox 100% ; ko1 MDM: 17:55 Medical Screening Exam initiated sb4 20:29 Data reviewed: vital signs, nurses notes, lab test result(s), EKG, radiologic studies, sb4 and as a result, I will discharge patient. Scoring Tools HEART Score: History: ECG: Age: Risk Factors: No Risk Factors Known (0), Troponin: Total Score = 0. Counseling: I had a detailed discussion with the patient and/or guardian regarding the historical points, exam findings, and any diagnostic results supporting the discharge/admit diagnosis, lab results, radiology results, the need for outpatient follow up, for definitive care, to return to the emergency department if symptoms worsen or persist or if there are any questions or concerns that arise at home. Special discussion: Based on the patient's history, exam, and Dx evaluation, there is no indication for emergent intervention or inpatient Tx. It is understood by the patient/guardian that if the Sx's persist or worsen they need to return immediately for re-evaluation. 09/22 17:58 Order name: Basic Metabolic Panel; Complete Time: 20:14 sb4 09/22 17:58 Order name: CBC with Diff; Complete Time: 19:49 sb4 09/22 17:58 Order name: LFT's; Complete Time: 20:14 sb4 09/22 17:58 Order name: Magnesium; Complete Time: 20:14 sb4 09/22 17:58 Order name: Troponin HS; Complete Time: 20:14 sb4 09/22 17:58 Order name: Test, Serum; Complete Time: 19:50 sb4 09/22 17:58 Order name: TSH; Complete Time: 20:14 sb4 09/22 20:02 Order name: T4 Free; Complete Time: 20:14 EDMS 09/22 17:58 Order name: XRAY Chest (1 view); Complete Time: 18:37 sb4 09/22 17:58 Order name: EKG; Complete Time: 17:59 sb4 09/22 17:58 Order name: Cardiac monitoring; Complete Time: 20:10 sb4 09/22 17:58 Order name: EKG - Nurse/Tech; Complete Time: 20:10 sb4 09/22 17:58 Order name: IV Saline Lock; Complete Time: 19:45 sb4 09/22 17:58 Order name: Labs collected and sent; Complete Time: 19:45 sb4 09/22 17:58 Order name: O2 Per Protocol; Complete Time: 19:45 sb4 09/22 17:58 Order name: O2 Sat Monitoring; Complete Time: 19:45 sb4 EC:29 Rate is 89 beats/min. Rhythm is regular, Normal Sinus Rhythm. WA interval is normal at sb4 134 msec. QRS interval is normal at 78 msec. QT interval is normal at 354 msec. No Q waves. No ST changes noted. Clinical impression: Normal ECG. Interpreted by me. Reviewed by me. Administered Medications: No medications were administered Disposition Summary: 09/22/24 20:30 Discharge Ordered Notes: Location: Home sb4 Problem: new sb4 Symptoms: have improved sb4 Condition: Stable sb4 Diagnosis - Chest pain, unspecified - noncardiac sb4 Followup: sb4 - With: Emergency Department - When: As needed - Reason: Trouble breathing, Worsening of condition Discharge Instructions: - Discharge Summary Sheet sb4 - Chest Wall Pain sb4 - Costochondritis, [id number] sb4 - Nonspecific Chest Pain, Adult, [id number] sb4 Forms: - Patient Portal Instructions sb4 - Leadership Thank You Letter sb4 Prescriptions: - Diclofenac Sodium 75 mg Oral Tablet Sustained Release - take 1 tablet ORAL route 2 times per day; 30 tablet; Refills: 0, Product sb4 Selection Permitted Addendum: 09/24/2024 07:24 Co-signature as Attending Physician, Be Forbes MD I reviewed the patient's care r n provided by the Advanced Practice Provider and agree with the diagnosis and treatment plan. Signatures: Dispatcher [employer] EDBe Mcarthur MD MD rn Oliver, Kathy, RN RN koDaily Quintanilla, PACleopatra PACleopatra sb4 Corrections: (The following items were deleted from the chart) 09/22 17:48 17:47 Home Meds: Methimazole 20mg Oral 1 tab daily; ko1 ko1 17:48 17:47 PMHx: HYPERGLYCEMIA; ko1 ko1 17:48 17:47 PMHx: hyperthyroidism; ko1 ko1 17:59 17:58 BASIC METABOLIC PANEL+C.LAB.BRZ ordered. EDMS EDMS 17:59 17:58 CBC+H.LAB.BRZ ordered. EDMS EDMS 17:59 17:58 HEPATIC FUNCTION+C.LAB.BRZ ordered. EDMS EDMS 17: 17:58 MAGNESIUM+C.LAB.BRZ ordered. EDMS EDMS 17: 17:59 Troponin High Sensitivity+C.LAB.BRZ ordered. EDMS EDMS 17:59 17:59 TEST, SERUM+SC.LAB.BRZ ordered. EDMS EDMS
[2024-09-23 03:59] VITALS: BP 123/85; TEMP 97.6; O2SAT 100
== END 2024-09-22 20:46 | disposition home or self-care (01) ==
LOC: ER 17:33
DX: R07.89 Other chest pain (principal)
CPT/HCPCS: 36415; 71045; 80048; 80076; 83735; 84439; 84443; 84484; 84703; 85025; 99284

== ENCOUNTER 2024-10-19 16:45 | Emergency (ER) | payer SELFPAY ==
--- OUTSIDE RECORDS SUMMARY | 2024-10-19 16:53 | XMS REPORT | Continuity of Care Document ---
Author Name Unknown Address [address] [place] [address] [facility] Address [address] [facility] 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 Role Phone Autumn Cruz Primary Care Physician STEPHANIA NIX Attending Clinician Unavailable Stephania Nix MD Attending Clinician [phone] Unknown, Attending Attending Clinician Unavailab JESUSITA Abreu Attending Clinician Unavailable JESUSITA BEAULIEU Attending Clinician Unavailable Jesusita Beaulieu MD Attending Clinician [phone] REENA ADAMSON Attending Clinician Unavailable Reena Adamson PA-C Attending Clinician [phone] Unknown, Attending Attending Clinician Unavailab DORIS Watkins Attending Clinician Unavailab DORIS Watkins Attending Clinician Unavailab MAMI Ospina Attending Clinician Unavailable MAMI SHABAZZ Attending Clinician Unavailable SOBIA SLOAN Attending Clinician Unavailable Sobia Sloan PA-C Attending Clinician [phone] MUNDO CHAMORRO Attending Clinician Unavailable Mundo Salas Attending Clinician [phone] GC_TEG_Boccalandro_C Attending Clinician Unavail able Stephania Nix MD Attending Clinician [phone] LYDIA TYLER Attending Clinician Unavailable Lorena Akers Attending Clinician [phone] LORENA SOLER Attending Clinician Unavailable JACKI MONTEIRO Attending Clinician Unavailabl e Guillermojanniebailey QUINTEROSP, Guillermoayzaria Attending Clinician [phone] PETER MINOR Attending Clinician Unavailable Peter Minor DO Attending Clinician [phone] Doctor Unassigned, [place] Attending Clinician U KARISSA Camacho Attending Clinician Unavailable Karissa Fox MD Attending Clinician [phone] JO KENT Attending Clinician UnavailPAWAN Kennedy Attending Clinician Unavaila harpreet QUINTEROSP, Pawan Palomino Attending Clinician [phone] Keri Bernard Attending Clinician [phone] NERISSA ELY Attending Clinician Unavailable Solis LAI, Nerissa Attending Clinician [phone] Elena Noel MD Attending Clinician [phone] ELENA NOEL Attending Clinician Unavailable Tasneem Herman RN Attending Clinician [phone] Hunter Martinez MD Attending Clinician [phone] Cinthya Strauss MD Attending Clinician [phone] Tate Zamorano MD Attending Clinician [phone] Jodi Guevara Attending Clinician +[phone] Kyle Pascual DO Attending Clinician [phone] SRINATH KAMARA Attending Clinician Unavailable Sarah Guajardo Attending Clinician [phone] OTF SANCHEZ Attending Clinician UnaKatie López Attending Clinician [phone] Balaji Rosario MD Attending Clinician [phone] JODI SALGADO Attending Clinician Unavailable CATHLEEN MCKEON Attending Clinician Unavailable NORA LUIS Attending Clinician Unav ailable SRIKANTH QUINTANILLA Attending Clinician Unavailab Grace Gomez Attending Clinician [phone] Mery HENSON, Luda Attending Clinician Unavailable Srikanth Sousa Attending Clinician [phone] Ariel HENSON, Tasneem Attending Clinician Unavailcarito Peter MD, Jeremy Attending Clinician +[phone] Shlomo Heredia MD Attending Clinician +- [phone] Rosalio Mccall MD Attending Clinician + [phone] MAMI SHABAZZ Admitting Clinician Unavailable GC_TEG_Boccalandro_C Admitting Clinician Unavail able LYDIA TYLER Admitting Clinician Unavailable PETER MINOR Admitting Clinician Unavailable KARISSA FOX Admitting Clinician Unavailable MAMI SHABAZZ Admitting Clinician Unavailable PAWAN ESTRELLA Admitting Clinician UnavailNERISSA Driscoll Admitting Clinician Unavailable Cinthya Strauss MD Admitting Clinician [phone] Balaji Rosario MD Admitting Clinician [phone] JODI SALGADO Admitting Clinician Unavailable Grace Hammer Admitting Clinician [phone] Jeremy Peter MD Admitting Clinician +[phone] Shlomo Heredia MD Admitting Clinician +- [phone] Rosalio Mccall MD Admitting Clinician + [phone] Payers Payer Name Policy Type Policy Number Effective Date Expirati on Date Source MEDICAID PENDING PENDING 2021 00:00:00 [employer]WORK [id number] 2024 00:00:00 [employer] [id number] 2023 00:00:00 ENTRUST - OPEN ACCESS [id number] [employer] BENEFIT OON [id number] 2022 00:00:00 2022 00:00:00 MEDICAID OF [place] [id number] 2018 00:00:00 2019 00:00:00 Problems Condition Name Condition Details Condition Category Status Onset Date Resolution Date Last Treatment Date Treating Clinician Comments Source Calculus of common bile duct with obstructio n Calculus of common bile duct with obstructio n Disease Active 9-04 00:00: 00 [facility] Graves' disease Graves' Disease Problem Active 3-29 00:00: 00 [facility] 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 to acute thyroiditi s Disease Active 2-11 00:00: 00 [facility] care and examinatio n of lactating mother care and examinatio n of lactating mother Disease Resolve d 2018-10 0-10 00:00: 00 2019-08-18 00:00:00 2019-08-18 10:31:31 [facility] (spontaneo us vaginal delivery) (spontaneo us vaginal delivery) Disease Resolve d 9-20 00:00: 00 2019-08-18 00:00:00 2019-08-18 10:31:35 [facility] Single live Single live Disease Resolve d 9-20 00:00: 00 2019-08-18 00:00:00 2019-08-18 10:31:34 [facility] Rubella non-immune status, antepartum Rubella non-immune status, antepartum Disease Resolve d 9-20 00:00: 00 2019-08-18 00:00:00 2019-08-18 10:31:33 [facility] 38 weeks gestation of 38 weeks gestation of Disease Resolve d 9-18 00:00: 00 2019-08-18 00:00:00 2019-08-18 10:31:19 [facility] Indication for care or interventi on in labor or delivery-I OL for decreased FM Indication for care or interventi on in labor or delivery-I OL for decreased FM Disease Resolve d 9-18 00:00: 00 2019-08-18 00:00:00 2019-08-18 10:31:28 [facility] Decreased movement Decreased movement Disease Resolve d 9-18 00:00: 00 2019-08-18 00:00:00 2019-08-18 10:31:23 [facility] High-risk in third trimester High-risk in third trimester Disease Resolve d 2018-0 4-10 00:00: 00 2019-08-18 00:00:00 2019-08-18 10:31:24 [facility] History of miscarriag e, currently History of miscarriag e, currently Disease Resolve d 2018-0 3-26 00:00: 00 2019-08-18 00:00:00 2019-08-18 10:31:27 [facility] Primigravi da in third trimester Primigravi da in third trimester Disease Resolve d 2018-0 3-26 00:00: 00 2019-08-18 00:00:00 2019-08-18 10:31:32 [facility] Chlamydia trachomati s infection of lower genitourin sarbjit sites Chlamydia trachomati s infection of lower genitourin sarbjit sites Disease Resolve d 2018-0 2-15 00:00: 00 2019-08-18 00:00:00 2019-08-18 10:31:21 [facility] Rob Hick's contractio n [place] Hick's contractio n Disease Resolve d 2018-0 9-04 00:00: 00 2019-07-06 00:00:00 2019-07-06 01:05:26 [facility] uterine contractio ns uterine contractio ns Disease Resolve d 2018-0 8-24 00:00: 00 2019-07-06 00:00:00 2019-07-06 00:14:28 [facility] 34 weeks gestation of 34 weeks gestation of Disease Resolve d 2018-0 8-02 00:00: 00 2019-07-06 00:00:00 2019-07-06 00:07:55 [facility] BV (bacterial vaginosis) BV (bacterial vaginosis) Disease Resolve d 2018-0 7-22 00:00: 00 2019-07-06 00:00:00 2019-07-06 00:08:00 [facility] 29 weeks gestation of 29 weeks gestation of Disease Resolve d 2018-0 7-22 00:00: 00 2019-07-06 00:00:00 2019-07-06 00:07:50 [facility] 27 weeks gestation of 27 weeks gestation of Disease Resolve d 2019-0 7-05 00:00: 00 2019-07-06 00:00:00 2019-07-06 00:07:46 [facility] 24 weeks gestation of 24 weeks gestation of Disease Resolve d 2019-0 6-15 00:00: 00 2019-07-06 00:00:00 2019-07-06 00:07:41 [facility] Round ligament pain Round ligament pain Disease Resolve d 2018-0 6-15 00:00: 00 2019-07-06 00:00:00 2019-07-06 01:05:23 [facility] Urine ketones Urine ketones Disease Resolve d 2019-0 2-08 00:00: 00 2019-07-06 00:00:00 2019-07-06 00:09:28 [facility] Nausea and vomiting during prior to 22 weeks gestation Nausea and vomiting during prior to 22 weeks gestation Disease Resolve d 2019-0 2-08 00:00: 00 2019-04-12 00:00:00 2019-04-12 08:52:40 [facility] Nausea and vomiting during prior to 22 weeks gestation Nausea and vomiting during prior to 22 weeks gestation Disease Resolve d 2018-0 2-08 00:00: 00 2019-04-12 00:00:00 2019-04-12 08:52:40 [facility] Diabetes Diabetes Disease Resolve d 0 1-01 00:00: 00 2018-11-29 00:00:00 2018-11-29 16:03:13 [facility] Allergies, Adverse Reactions, Alerts Allergy Name Allergy Type Status Severity Reaction(s) Onset Date Inactive Date Treating Clinician Comments Source NO KNOWN ALLERGIE S Drug Class Active [facility] Social History Social Habit Start Date Stop Date Quantity Comments Source Gender identity [facility] Alcoholic beverage intake 2024-09-04 00:00:00 2024-09-04 00:00:00 Current drinker of alcohol (finding) [facility] Alcohol intake 2023-12-14 00:00:00 2023-12-14 00:00:00 Current drinker of alcohol (finding) [facility] History of Social function 2023-12-06 00:00:00 2023-12-06 00:00:[address] [facility] Tobacco use and exposure 2023-07-21 00:00:00 2023-07-21 00:00:00 Smokeless tobacco non-user [facility] Exposure to SARS-CoV-2 (event) 2022-10-22 00:00:00 2022-11-01 16:02:[address] [facility] History SDOH Alcohol Frequency 2020-11-30 00:00:00 2020-11-30 00:00:[address] [facility] History SDOH Alcohol Std Drinks 2020-11-30 00:00:00 2020-11-30 00:00:[address] [facility] History SDOH Alcohol Binge 2020-11-30 00:00:00 2020-11-30 00:00:[address] [facility] Alcohol Comment 2019-08-18 00:00:00 2019-08-18 00:00:[address] [facility] Sex assigned at 2000 00:00:00 2000 00:00:[address] [facility] Smoking Status Start Date Stop Date Source Never smoked tobacco [facility] Medications Ordered Medication Name Filled Medication Name Start Date Stop Date Current Medication? Ordering Clinician Indication Dosage Frequency Signature (SIG) Comments Components Source bromphenira mine-pseudo ephedrine-D M (BROMFED DM) 2-30-10 mg/5 mL syrup 2023-10 00:00: 00 Yes [id number] 10mL Take 10 mL by mouth 4 (four) times daily as needed for Congestion /Allergies or Cold symptoms. [facility] methylPREDN ISolone (MEDROL, KAYLIN,) 4 mg tablets 2023-10 00:00: 00 Yes [id number] Take by mouth SEE-INSTRU CTIONS. follow package directions [facility] amoxicillin -clavulanat e (AUGMENTIN) 875-125 mg per tablet 2024-1 1-17 00:00: 00 09-15 05:59 :00 Yes [id number] 1{tbl} Take 1 tablet by mouth in the morning and 1 tablet in the evening. Do all this for 10 days. [facility] ketorolac (TORADOL) injection 30 mg 06-21 02:00: 00 06-21 00:56 :00 No 30mg 30 mg, Slow IV Push, ONCE, 1 dose, On Thu06/20/24 at 2100, Routine [facility] ondansetron (ZOFRAN (PF)) injection 4 mg 06-21 01:00: 00 06-21 00:56 :00 No 4mg 4 mg, Slow IV Push, ONCE, 1 dose, On Thu06/20/24 at 2000, MARILYN [facility] diphenhydrA MINE:lidoca ine 2% viscous:maa lox 1:1:1 (FIRST[facility]OUT [facility]) oral suspension 15 mL 06-21 01:00: 00 06-21 00:56 :00 No 15mL 15 mL, Oral, ONCE, 1 dose, On Thu06/20/24 at 2000, Routine [facility] pantoprazol e (PROTONIX) 40 mg EC tablet 06-20 00:00: 00 Yes [id number] 40mg Take 1 tablet by mouth in the morning. [facility] ondansetron (ZOFRAN) 4 mg tablet 06-20 00:00: 00 Yes [id number] 4mg Take 1 tablet by mouth every 8 (eight) hours as needed for Nausea and Vomiting (N/V). [facility] ketorolac (TORADOL) injection 30 mg 03-21 05:30: 00 03-21 05:16 :00 No 30mg 30 mg, Slow IV Push, ONCE, 1 dose, On Thu03/21/24 at 0030, Routine [facility] NaCl 0.9% (NS) bolus infusion 1,000 mL 03-21 05:30: 00 03-21 05:56 :00 No 1000mL at 999 mL/hr, 1,000 mL, IV Infusion, ONCE, 1 dose, On 03/21/24 at 0030, MARILYN [facility] diphenhydrA MINE (BENADRYL) injection 25 mg 03-21 04:45: 00 03-21 05:16 :00 No 25mg 25 mg, Slow IV Push, ONCE, 1 dose, On 03/20/24 at 2345, STAT [facility] metoclopram royal HCl (REGLAN) injection 10 mg 03-21 04:45: 00 03-21 04:54 :00 No 10mg 10 mg, Slow IV Push, ONCE, 1 dose, On 03/20/24 at 2345, MARILYN [facility] ibuprofen 800 mg tablet 03-05 00:00: 00 Yes [id number] 800mg Take 1 tablet by mouth in the morning and 1 tablet at noon and 1 tablet in the evening. Take with meals. [facility] methocarbam oL 750 mg tablet 03-05 00:00: 00 Yes [id number] 750mg Take 1 tablet by mouth 4 (four) times daily. [facility] cyclobenzap rine 10 mg tablet 02-19 00:00: 00 03-05 00:00 :00 No [id number] 10mg Take 1 tablet by mouth in the morning and 1 tablet at noon and 1 tablet in the evening. [facility] ibuprofen 800 mg tablet 02-19 00:00: 00 03-05 00:00 :00 No [id number] 800mg Take 1 tablet by mouth in the morning and 1 tablet at noon and 1 tablet in the evening. Take with meals. [facility] cephalexin 500 mg tablet -17 00:00: 00 Yes 1mg [facility] bromphenira mine-pseudo ephedrine-D M (BROMFED DM) 2-30-10 mg/5 mL syrup 2-18 00:00: 00 03-05 00:00 :00 No [id number] 10mL Take 10 mL by mouth 4 (four) times daily as needed for Cold symptoms or Cough. [facility] albuterol 90 mcg/actuati on inhaler 12-06 00:00: 00 03-05 00:00 :00 No [id number] 2{puff} Inhale 2 Puffs every 6 (six) hours as needed for Wheezing or Shortness of Breath. [facility] ketorolac (TORADOL) injection 30 mg 2022-10 17:30: 00 10-18 16:52 :00 No 30mg 30 mg, Slow IV Push, ONCE, 1 dose, On Thu10/18/23 at 1130, [facility] famotidine (PEPCID (PF)) injection 20 mg 2022-10 17:30: 00 10-18 16:53 :00 No 20mg 20 mg, Slow IV Push, ONCE, 1 dose, On Thu10/18/23 at 1130, [facility] ondansetron (ZOFRAN (PF)) injection 4 mg 2022-10 17:30: 00 10-18 16:52 :00 No 4mg 4 mg, Slow IV Push, ONCE, 1 dose, On Thu10/18/23 at 1130, [facility] NaCl 0.9% (NS) bolus infusion 1,000 mL 2022-10 17:30: 00 10-18 18:18 :00 No 1000mL at 999 mL/hr, 1,000 mL, IV Infusion, ONCE, 1 dose, On Thu10/18/23 at 1130, [facility] ibuprofen 600 mg tablet 2022-10 00:00: 00 03-05 00:00 :00 No [id number] 600mg Take 1 tablet by mouth every 6 (six) hours as needed for Pain (scale 4-6) or Temp > 38.5 C. [facility] albuterol 90 mcg/actuati on inhaler 2022-10 00:00: 00 03-05 00:00 :00 No [id number] 2{puff} Inhale 2 Puffs every 4 (four) hours as needed for Wheezing or Shortness of Breath. [facility] methylPREDN ISolone 4 mg tablets 2022-10 2 00:00: 00 03-05 00:00 :00 No [id number] Take by mouth SEE-INSTRU CTIONS. follow package directions [facility] amoxicillin 500 mg tablet 2022-10 2-08 00:00: 00 10-06 05:59 :00 No [id number] 1000mg Take 2 tablets by mouth in the morning for 10 days. [facility] TAKE 2 TABLETS BY MOUTH IN THE MORNING FOR 5 DAYS 2022-10 0 00:00: 00 Yes [facility] INHALE 2 PUFFS BY MOUTH EVERY 6 HOURS NEEDED FOR WHEEZING FOR UP TO 10 DAYS 2022-10 003 00:00: 00 Yes [facility] albuterol 90 mcg/actuati on inhaler 2022-10 0- 00:00: 00 08-01 04:59 :00 No [id number] 2{puff} Inhale 2 Puffs every 6 (six) hours as needed for Wheezing for up to 10 days. [facility] predniSONE 20 mg tablet 2022-10 0- 00:00: 00 07-27 04:59 :00 No [id number] 40mg Take 2 tablets by mouth in the morning for 5 days. [facility] ondansetron (ZOFRAN-ODT ) disintegrat ing tablet 8 mg 07-05 22:15: 00 07-05 21:24 :00 No [id number] 8mg [facility] ondansetron 4 mg disintegrat ing tablet 07-05 00:00: 00 03-05 00:00 :00 No [id number] 4mg Take 1 tablet by mouth every 8 (eight) hours as needed for Nausea and Vomiting (N/V). [facility] ketorolac (TORADOL) injection 30 mg 05-01 22:00: 00 05-01 21:24 :00 No 30mg 30 mg, Slow IV Push, ONCE, 1 dose, On Thu05/01/23 at 1700, MARILYN [facility] iopamidol (ISOVUE 370-500 mL) injection 75 mL 05-01 21:30: 00 05-01 21:30 :00 No [id number] 75mL 75 mL, Intravenou s, ONCE, 1 dose, On Thu05/01/23 at 1630, Routine [facility] cefTRIAXone (ROCEPHIN) 1,000 mg in NaCl 0.9% (NS) 100 mL MINI-BAG 05-01 21:15: 00 05-01 22:00 :00 No 1000mg 1,000 mg, IV Piggyback, ONCE, 1 dose, On Thu05/01/23 at 1615, Administer over 30 Minutes, 100 mL
Reas on for Anti-Infec tive: Documented Infection< br>Documen nivia Infection Site: Urine
D uration of Therapy: Other (see Comments) [facility] metoclopram royal HCl (REGLAN) injection 10 mg 05-01 21:15: 00 05-01 21:24 :00 No 10mg 10 mg, Slow IV Push, ONCE, 1 dose, On Thu05/01/23 at 1615, MARILYN [facility] metoclopram royal HCl 10 mg tablet 05-01 00:00: 00 03-05 00:00 :00 No [id number] 10mg Take 1 tablet by mouth every 6 (six) hours. [facility] cephALEXin (KEFLEX) 500 mg capsule 05-01 00:00: 00 03-05 00:00 :00 No [id number] 500mg Take 1 capsule by mouth in the morning and 1 capsule in the evening. [facility] naproxen 500 mg tablet 05-01 00:00: 00 05-12 04:59 :00 No [id number] 500mg Take 1 tablet by mouth in the morning and 1 tablet in the evening. Take with meals. Do all this for 10 days. [facility] INJECT 0.6 SQ QD X 1 WEEK [...] 00 02-21 00:00 :00 No 500 [facility] NaCl 0.9% (NS) bolus infusion 1,000 mL 2021-10 07:00: 00 10-08 08:24 :00 No 1000mL at 999 mL/hr, 1,000 mL, IV Infusion, ONCE, 1 dose, On Thu10/08/22 at 0100, [facility] LOR[facility] (ATIVAN) injection 0.5 mg 2021-10 06:15: 00 10-08 06:37 :00 No .5mg 0.5 mg, Slow IV Push, ONCE, 1 dose, On Thu10/08/22 at 0015, STAT [facility] metoprolol tartrate 25 mg tablet 2021-10- 00:00: 00 10-16 05:59 :00 No [id number] 25mg Take 1 tablet by mouth in the morning and 1 tablet in the evening. Do all this for 7 days. [facility] dicyclomine (BENTYL) injection 20 mg 2021-10 18:45: 00 08-13 18:11 :00 No 20mg 20 mg, Intramuscu lar, ONCE, 1 dose, On Thu08/13/22 at 1345, Routine [facility] iopamidol (ISOVUE 370-500 mL) injection 80 mL 2021-10 18:30: 00 08-13 18:30 :00 No [id number] 80mL 80 mL, Intravenou s, ONCE, 1 dose, On Thu08/13/22 at 1330, Routine [facility] metoclopram royal HCl (REGLAN) injection 10 mg 2021-10 18:00: 00 08-13 18:04 :00 No 10mg 10 mg, Slow IV Push, ONCE, 1 dose, On Thu08/13/22 at 1300, MARILYN [facility] ketorolac (TORADOL) injection 30 mg 2021-10 18:00: 00 08-13 17:07 :00 No 30mg 30 mg, Slow IV Push, ONCE, 1 dose, On Thu08/13/22 at 1300, Routine [facility] NaCl 0.9% (NS) bolus infusion 1,000 mL 2021-10 17:30: 00 08-13 17:57 :00 No 1000mL at 999 mL/hr, 1,000 mL, IV Infusion, ONCE, 1 dose, On Thu08/13/22 at 1230, MARILYN [facility] ondansetron (ZOFRAN (PF)) injection 4 mg 2021-10 17:00: 00 08-13 17:07 :00 No 4mg 4 mg, Slow IV Push, ONCE, 1 dose, On Thu08/13/22 at 1200, MARILYN [facility] morpHINE (4 mg/mL) injection 4 mg 2021-10 17:00: 00 08-13 17:08 :00 No 4mg 4 mg, Slow IV Push, ONCE, 1 dose, On Thu08/13/22 at 1200, STAT [facility] maalox:diph enhydrAMINE :lidocaine 2 % viscous 1:1:1 (FIRST-MOUT [facility]) oral suspension 15 mL 2021-10 17:00: 00 08-13 17:14 :00 No 15mL 15 mL, Oral, ONCE, 1 dose, On Thu08/13/22 at 1200, Routine [facility] metoclopram royal HCl 10 mg tablet 2021-10 00:00: 00 11-01 00:00 :00 No [id number] 10mg Take 1 tablet by mouth every 6 (six) hours as needed for Nausea and Vomiting (N/V). [facility] dicyclomine 20 mg tablet 2021-10 00:00: 00 08-21 04:59 :00 No [id number] 20mg Take 1 tablet by mouth 4 (four) times daily for 7 days. [facility] benzonatate 200 mg capsule 07-14 00:00: 00 11-01 00:00 :00 No [id number] 200mg Take 1 capsule by mouth 3 (three) times daily as needed for Cough. [facility] ibuprofen 800 mg tablet 07-14 00:00: 00 11-01 00:00 :00 No [id number] 800mg Take 1 tablet by mouth every 8 (eight) hours as needed for Temp > 38.5 C or Pain (scale 4-6). [facility] ondansetron (ZOFRAN) 4 mg tablet 07-14 00:00: 00 11-01 00:00 :00 No [id number] 4mg Take 1 tablet by mouth every 8 (eight) hours as needed for Nausea and Vomiting (N/V). [facility] doxycycline hyclate 100 mg tablet 02-17 00:00: [...] 1 dose, On 12/21/21 at 0000, MARILYN [facility] NaCl 0.9% (NS) bolus infusion 1,000 mL 12-21 06:00: 00 12-21 07:20 :00 No 1000mL at 999 mL/hr, 1,000 mL, IV Infusion, ONCE, 1 dose, On 12/21/21 at 0000, MARILYN [facility] ondansetron (ZOFRAN-ODT ) disintegrat ing tablet 4 mg 12-21 06:00: 00 12-21 04:56 :00 No 4mg 4 mg, Oral, ONCE, 1 dose, On 12/21/21 at 0000, Routine [facility] ondansetron 4 mg disintegrat ing tablet 12-21 00:00: 00 11-01 00:00 :00 No [id number] 4mg Take 1 tablet by mouth every 8 (eight) hours as needed for Nausea and Vomiting (N/V). [facility] ketorolac (TORADOL) injection 30 mg 11-03 08:00: 00 11-03 07:15 :00 No 30mg 30 mg, Slow IV Push, ONCE, 1 dose, On 11/03/21 at 0200, MARILYN [facility] aspirin tablet 325 mg 11-03 07:00: 00 11-03 06:02 :00 No 325mg 325 mg, Oral, ONCE, 1 dose, On 11/03/21 at 0100, MARILYN [facility] Dose Unknown 2020-10 0 00:00: 00 No [...] 03-19 00:00: 00 12-21 00:00 :00 No [id number] 4mg Take 1 tablet by mouth every 8 (eight) hours as needed for Nausea and Vomiting (N/V). [facility] Zofran 4 mg tablet 01-11 00:00: 00 [...] 60 mg tablet 12-03 00:00: 00 Yes [id number] 60mg Take 1 tablet by mouth 2 (two) times daily. [facility] methIMAzole 10 mg tablet 12-03 00:00: 00 Yes [id number] 20mg Take 2 tablets by mouth daily. [facility] propranoloL 60 mg tablet 12-02 00:00: 00 11-01 00:00 :00 No [id number] 60mg Take 1 tablet by mouth 2 (two) times daily. [facility] ondansetron (ZOFRAN ODT) 4 mg disintegrat ing tablet 12-02 00:00: 00 12-21 00:00 :00 No [id number] 4mg Take 1 tablet by mouth every 6 (six) hours as needed for Nausea and Vomiting (N/V). [facility] [employer] Presenter a 150 mg/mL intramuscul ar syringe [employer] Presenter a 150 mg/mL intramuscul ar syringe No [...] a day by oral route. [facility] [employer] Presenter a 150 mg/mL intramuscul ar syringe [employer] Presenter a 150 mg/mL intramuscul ar syringe No Depo-Prove ra 150 mg/mL intramuscu lar syringe [facility] methimazole 10 mg tablet Take 1 tablet every day by oral route for 30 days. methimazole 10 mg tablet Take 1 tablet every day by oral route for 30 days. No 1 Q1D methimazol e 10 mg tablet Take 1 tablet every day by oral route for 30 days. [facility] propranolol 20 mg tablet Take 1 tablet every day by oral route for 30 days. propranolol 20 mg tablet Take 1 tablet every day by oral route for 30 days. No 1 Q1D propranolo l 20 mg tablet Take 1 tablet every day by oral route for 30 days. [facility] methimazole 10 mg tablet Take 1 tablet every day by oral route for 30 days. methimazole 10 mg tablet Take 1 tablet every day by oral route for 30 days. No 1 Q1D methimazol e 10 mg tablet Take 1 tablet every day by oral route for 30 days. [facility] Immunizations Ordered Immunization Name Filled Immunization Name Date Status Comments Source Influenza, injectable, [facility]in [facility] Canine Kidney, preservative-free, quadrivalent Influenza, injectable, [facility]in Lacey Canine Kidney, preservative-free, quadrivalent 2024-09-26 00:00:00 Completed [facility] HPV9 HPV9 2023-01-09 00:00:00 Completed [facility] Moderna COVID-19 Vaccine 2021-05-13 00:00:00 Completed Moderna COVID-19 Vaccine Moderna COVID-19 Vaccine 2021-05-13 00:00:00 Completed [facility] Moderna COVID-19 Vaccine 2021-04-09 00:00:00 Completed Moderna COVID-19 Vaccine Moderna COVID-19 Vaccine 2021-04-09 00:00:00 Completed [facility] Influenza Virus Vaccine Quad .5 mL IM 6+ MO 2019-08-18 00:00:[address] [facility] HPV9 2019-08-18 00:00:[address] [facility] Influenza Virus Vaccine Quad .5 mL IM 6+ MO 2019-08-18 00:00:[address] [facility] HPV9 2019-08-18 00:00:[address] [facility] Influenza Virus Vaccine Quad .5 mL IM 6+ MO 2019-08-18 00:00:[address] [facility] HPV9 2019-08-18 00:00:[address] [facility] Influenza Virus Vaccine Quad .5 mL IM 6+ MO 2019-08-18 00:00:[address] [facility] HPV9 2019-08-18 00:00:[address] [facility] Influenza Virus Vaccine Quad .5 mL IM 6+ MO 2019-08-18 00:00:[address] [facility] HPV9 2019-08-18 00:00:[address] [facility] Influenza Virus Vaccine Quad .5 mL IM 6+ MO 2019-08-18 00:00:[address] [facility] HPV9 2019-08-18 00:00:[address] [facility] Influenza Virus Vaccine Quad .5 mL IM 6+ MO 2019-08-18 00:00:[address] [facility] HPV9 2019-08-18 00:00:[address] [facility] Influenza Virus Vaccine Quad .5 mL IM 6+ MO 2019-08-18 00:00:[address] [facility] HPV9 2019-08-18 00:00:[address] [facility] Influenza Virus Vaccine Quad .5 mL IM 6+ MO 2019-08-18 00:00:[address] [facility] HPV9 2019-08-18 00:00:[address] [facility] Influenza Virus Vaccine Quad .5 mL IM 6+ MO 2019-08-18 00:00:[address] [facility] HPV9 2019-08-18 00:00:[address] [facility] Influenza Virus Vaccine Quad .5 mL IM 6+ MO 2019-08-18 00:00:[address] [facility] HPV9 2019-08-18 00:00:[address] [facility] Influenza Virus Vaccine Quad .5 mL IM 6+ MO 2019-08-18 00:00:[address] [facility] HPV9 2019-08-18 00:00:[address] [facility] Influenza Virus Vaccine Quad .5 mL IM 6+ MO (FLUZONE/FLULAVAL/F LUARIX) 2019-08-18 00:00:[address] [facility] HPV9 2019-08-18 00:00:[address] [facility] Influenza Virus Vaccine Quad .5 mL IM 6+ MO (FLUZONE/FLULAVAL/F LUARIX) 2019-08-18 00:00:[address] [facility] HPV9 2019-08-18 00:00:[address] [facility] Influenza Virus Vaccine Quad .5 mL IM 6+ MO (FLUZONE/FLULAVAL/F LUARIX) 2019-08-18 00:00:[address] [facility] HPV9 2019-08-18 00:00:00 Completed TDAP 2019-04-26 00:00:[address] [facility] TDAP 2019-04-26 00:00:[address] [facility] TDAP 2019-04-26 00:00:[address] [facility] TDAP 2019-04-26 00:00:[address] [facility] TDAP 2019-04-26 00:00:[address] [facility] TDAP 2019-04-26 00:00:[address] [facility] TDAP 2019-04-26 00:00:[address] [facility] TDAP 2019-04-26 00:00:[address] [facility] TDAP 2019-04-26 00:00:[address] [facility] TDAP 2019-04-26 00:00:[address] [facility] TDAP 2019-04-26 00:00:[address] [facility] TDAP 2019-04-26 00:00:[address] [facility] TDAP 2019-04-26 00:00:[address] [facility] TDAP 2019-04-26 00:00:[address] [facility] TDAP 2019-04-26 00:00:[address] [facility] Influenza Virus Vaccine Quad .5 mL IM 6+ MO 2018-11-26 00:00:[address] [facility] Influenza Virus Vaccine 2018-11-26 00:00:[address] [facility] Influenza Virus Vaccine Quad .5 mL IM 6+ MO 2018-11-26 00:00:[address] [facility] Influenza Virus Vaccine 2018-11-26 00:00:[address] [facility] Influenza Virus Vaccine Quad .5 mL IM 6+ MO 2018-11-26 00:00:[address] [facility] Influenza Virus Vaccine 2018-11-26 00:00:[address] [facility] Influenza Virus Vaccine Quad .5 mL IM 6+ MO 2018-11-26 00:00:[address] [facility] Influenza Virus Vaccine 2018-11-26 00:00:[address] [facility] Influenza Virus Vaccine Quad .5 mL IM 6+ MO 2018-11-26 00:00:[address] [facility] Influenza Virus Vaccine 2018-11-26 00:00:[address] [facility] Influenza Virus Vaccine Quad .5 mL IM 6+ MO 2018-11-26 00:00:[address] [facility] Influenza Virus Vaccine 2018-11-26 00:00:[address] [facility] Influenza Virus Vaccine Quad .5 mL IM 6+ MO 2018-11-26 00:00:[address] [facility] Influenza Virus Vaccine 2018-11-26 00:00:[address] [facility] Influenza Virus Vaccine Quad .5 mL IM 6+ MO 2018-11-26 00:00:[address] [facility] Influenza Virus Vaccine 2018-11-26 00:00:[address] [facility] Influenza Virus Vaccine Quad .5 mL IM 6+ MO 2018-11-26 00:00:[address] [facility] Influenza Virus Vaccine 2018-11-26 00:00:[address] [facility] Influenza Virus Vaccine Quad .5 mL IM 6+ MO 2018-11-26 00:00:[address] [facility] Influenza Virus Vaccine 2018-11-26 00:00:[address] [facility] Influenza Virus Vaccine Quad .5 mL IM 6+ MO 2018-11-26 00:00:[address] [facility] Influenza Virus Vaccine 2018-11-26 00:00:[address] [facility] Influenza Virus Vaccine Quad .5 mL IM 6+ MO 2018-11-26 00:00:[address] [facility] Influenza Virus Vaccine 2018-11-26 00:00:[address] [facility] Influenza Virus Vaccine Quad .5 mL IM 6+ MO (FLUZONE/FLULAVAL/F LUARIX) 2018-11-26 00:00:[address] [facility] Influenza Virus Vaccine 2018-11-26 00:00:[address] [facility] Influenza Virus Vaccine Quad .5 mL IM 6+ MO (FLUZONE/FLULAVAL/F LUARIX) 2018-11-26 00:00:[address] [facility] Influenza Virus Vaccine 2018-11-26 00:00:[address] [facility] Influenza Virus Vaccine Quad .5 mL IM 6+ MO (FLUZONE/FLULAVAL/F LUARIX) 2018-11-26 00:00:[address] [facility] Influenza Virus Vaccine 2018-11-26 00:00:[address] [facility] Influenza Virus Vaccine Quad .5 mL IM 6+ MO (FLUZONE/FLULAVAL/F LUARIX) Unknown Completed [facility] Influenza Virus Vaccine Unknown Completed [facility] TDAP Unknown Completed [facility] HPV9 Unknown Completed [facility] Influenza Virus Vaccine Quad .5 mL IM 6+ MO (FLUZONE/FLULAVAL/F LUARIX) Unknown Completed [facility] Influenza Virus Vaccine Unknown Completed [facility] TDAP Unknown Completed [facility] HPV9 Unknown Completed [facility] Influenza Virus Vaccine Quad .5 mL IM 6+ MO (FLUZONE/FLULAVAL/F LUARIX) Unknown Completed [facility] Influenza Virus Vaccine Unknown Completed [facility] TDAP Unknown Completed [facility] HPV9 Unknown Completed [facility] Influenza Virus Vaccine Quad .5 mL IM 6+ MO (FLUZONE/FLULAVAL/F LUARIX) Unknown Completed [facility] Influenza Virus Vaccine Unknown Completed [facility] TDAP Unknown Completed [facility] HPV9 Unknown Completed [facility] Influenza Virus Vaccine Quad .5 mL IM 6+ MO (FLUZONE/FLULAVAL/F LUARIX) Unknown Completed [facility] Influenza Virus Vaccine Unknown Completed [facility] TDAP Unknown Completed [facility] HPV9 Unknown Completed [facility] Influenza Virus Vaccine Quad .5 mL IM 6+ MO (FLUZONE/FLULAVAL/F LUARIX) Unknown Completed [facility] Influenza Virus Vaccine Unknown Completed [facility] TDAP Unknown Completed [facility] HPV9 Unknown Completed [facility] Influenza Virus Vaccine Quad .5 mL IM 6+ MO (FLUZONE/FLULAVAL/F LUARIX) Unknown Completed [facility] Influenza Virus Vaccine Unknown Completed [facility] TDAP Unknown Completed [facility] HPV9 Unknown Completed [facility] Influenza Virus Vaccine Quad .5 mL IM 6+ MO (FLUZONE/FLULAVAL/F LUARIX) Unknown Completed [facility] Influenza Virus Vaccine Unknown Completed [facility] TDAP Unknown Completed [facility] HPV9 Unknown Completed [facility] Influenza Virus Vaccine Quad .5 mL IM 6+ MO (FLUZONE/FLULAVAL/F LUARIX) Unknown Completed [facility] Influenza Virus Vaccine Unknown Completed [facility] TDAP Unknown Completed [facility] HPV9 Unknown Completed [facility] Influenza Virus Vaccine Quad .5 mL IM 6+ MO (FLUZONE/FLULAVAL/F LUARIX) Unknown Completed [facility] Influenza Virus Vaccine Unknown Completed [facility] TDAP Unknown Completed [facility] HPV9 Unknown Completed [facility] Influenza Virus Vaccine Quad .5 mL IM 6+ MO (FLUZONE/FLULAVAL/F LUARIX) Unknown Completed [facility] Influenza Virus Vaccine Unknown Completed [facility] TDAP Unknown Completed [facility] HPV9 Unknown Completed [facility] Influenza Virus Vaccine Quad .5 mL IM 6+ MO (FLUZONE/FLULAVAL/F LUARIX) Unknown Completed [facility] Influenza Virus Vaccine Unknown Completed [facility] TDAP Unknown Completed [facility] HPV9 Unknown Completed [facility] Influenza Virus Vaccine Quad .5 mL IM 6+ MO (FLUZONE/FLULAVAL/F LUARIX) Unknown Completed [facility] Influenza Virus Vaccine Unknown Completed [facility] TDAP Unknown Completed [facility] HPV9 Unknown Completed [facility] Vital Signs Vital Name Observation Time Observation Value Comments S ource Systolic blood pressure 2024-09-04 19:42:00 100 mm[Hg] [facility] Diastolic blood pressure 2024-09-04 19:42:00 71 mm[Hg] [facility] Heart rate 2024-09-04 19:10:00 83 /min [facility] Body temperature 2024-09-04 19:10:[address] [facility] Respiratory rate 2024-09-04 19:10:00 16 /min [facility] Body height 2024-09-04 19:10:00 149.9 cm [facility] Body weight 2024-09-04 19:10:00 75.354 kg [facility] BMI 2024-09-04 19:10:00 33.55 kg/m2 [facility] Oxygen saturation in Arterial blood by Pulse oximetry 2024-09-04 19:10:00 98 /min [facility] Systolic blood pressure 2024-06-21 01:35:00 112 mm[Hg] [facility] Diastolic blood pressure 2024-06-21 01:35:00 74 mm[Hg] [facility] Heart rate 2024-06-21 01:35:00 67 /min [facility] Body temperature 2024-06-21 01:35:[address] [facility] Respiratory rate 2024-06-21 01:35:00 18 /min [facility] Oxygen saturation in Arterial blood by Pulse oximetry 2024-06-21 01:35:00 96 /min [facility] Body height 2024-06-21 00:09:00 149.9 cm [facility] Body weight 2024-06-21 00:09:00 74.345 kg [facility] BMI 2024-06-21 00:09:00 33.10 kg/m2 [facility] Systolic blood pressure 2024-05-03 22:57:00 137 mm[Hg] [facility] Diastolic blood pressure 2024-05-03 22:57:00 82 mm[Hg] [facility] Heart rate 2024-05-03 22:57:00 92 /min [facility] Body temperature 2024-05-03 22:57:[address] [facility] Respiratory rate 2024-05-03 22:57:00 16 /min [facility] Body height 2024-05-03 22:57:00 149.9 cm [facility] Body weight 2024-05-03 22:57:00 74.844 kg [facility] BMI 2024-05-03 22:57:00 33.33 kg/m2 [facility] Oxygen saturation in Arterial blood by Pulse oximetry 2024-05-03 22:57:00 97 /min [facility] Systolic blood pressure 2024-03-21 05:52:00 108 mm[Hg] [facility] Diastolic blood pressure 2024-03-21 05:52:00 77 mm[Hg] [facility] Heart rate 2024-03-21 05:52:00 73 /min [facility] Body temperature 2024-03-21 05:52:[address] [facility] Respiratory rate 2024-03-21 05:52:00 16 /min [facility] Oxygen saturation in Arterial blood by Pulse oximetry 2024-03-21 05:52:00 99 /min [facility] Body height 2024-03-21 04:38:00 149.9 cm [facility] Body weight 2024-03-21 04:38:00 72.576 kg [facility] BMI 2024-03-21 04:38:00 32.32 kg/m2 [facility] Systolic blood pressure 2024-03-05 05:34:00 111 mm[Hg] [facility] Diastolic blood pressure 2024-03-05 05:34:00 74 mm[Hg] [facility] Heart rate 2024-03-05 05:34:00 75 /min [facility] Body temperature 2024-03-05 05:34:[address] [facility] Respiratory rate 2024-03-05 05:34:00 15 /min [facility] Oxygen saturation in Arterial blood by Pulse oximetry 2024-03-05 05:34:00 100 /min [facility] Body height 2024-03-05 02:12:00 149.9 cm [facility] Body weight 2024-03-05 02:12:00 74.39 kg [facility] BMI 2024-03-05 02:12:00 33.12 kg/m2 [facility] Systolic blood pressure 2024-02-21 00:07:00 105 mm[Hg] [facility] Diastolic blood pressure 2024-02-21 00:07:00 72 mm[Hg] [facility] Heart rate 2024-02-21 00:07:00 86 /min [facility] Body temperature 2024-02-21 00:07:[address] [facility] Body height 2024-02-21 00:07:00 149.9 cm [facility] Body weight 2024-02-21 00:07:00 74.39 kg [facility] BMI 2024-02-21 00:07:00 33.12 kg/m2 [facility] Oxygen saturation in Arterial blood by Pulse oximetry 2024-02-21 00:07:00 100 /min [facility] Systolic blood pressure 2023-12-15 00:21:51 121 mm[Hg] [facility] Diastolic blood pressure 2023-12-15 00:21:51 76 mm[Hg] [facility] Heart rate 2023-12-15 00:21:51 82 /min [facility] Body temperature 2023-12-15 00:21:[address] [facility] Respiratory rate 2023-12-15 00:21:51 16 /min [facility] Body height 2023-12-15 00:21:00 149.9 cm [facility] Body weight 2023-12-15 00:21:00 62.143 kg [facility] BMI 2023-12-15 00:21:00 27.67 kg/m2 [facility] Oxygen saturation in Arterial blood by Pulse oximetry 2023-12-15 00:21:00 98 /min [facility] Systolic blood pressure 2023-12-07 02:07:00 100 mm[Hg] [facility] Diastolic blood pressure 2023-12-07 02:07:00 61 mm[Hg] [facility] Heart rate 2023-12-07 02:07:00 68 /min [facility] Body temperature 2023-12-07 02:07:00 36.94 [facility] Respiratory rate 2023-12-07 02:07:00 17 /min [facility] Body height 2023-12-07 02:07:00 149.9 cm [facility] Body weight 2023-12-07 02:07:00 76.204 kg [facility] BMI 2023-12-07 02:07:00 33.93 kg/m2 [facility] Oxygen saturation in Arterial blood by Pulse oximetry 2023-12-07 02:07:00 99 /min [facility] Systolic blood pressure 2023-10-18 18:00:00 130 mm[Hg] [facility] Diastolic blood pressure 2023-10-18 18:00:00 80 mm[Hg] [facility] Heart rate 2023-10-18 18:00:00 76 /min [facility] Respiratory rate 2023-10-18 18:00:00 17 /min [facility] Oxygen saturation in Arterial blood by Pulse oximetry 2023-10-18 18:00:00 100 /min [facility] Body temperature 2023-10-18 16:28:00 37.11 [facility] Body height 2023-10-18 16:28:00 149.9 cm [facility] Body weight 2023-10-18 16:28:00 72.576 kg [facility] BMI 2023-10-18 16:28:00 32.32 kg/m2 [facility] Systolic blood pressure 2023-09-25 16:40:00 105 mm[Hg] [facility] Diastolic blood pressure 2023-09-25 16:40:00 77 mm[Hg] [facility] Heart rate 2023-09-25 16:40:00 93 /min [facility] Body temperature 2023-09-25 16:40:00 37.17 [facility] Respiratory rate 2023-09-25 16:40:00 18 /min [facility] Body height 2023-09-25 16:40:00 149.9 cm [facility] Body weight 2023-09-25 16:40:00 72.235 kg [facility] BMI 2023-09-25 16:40:00 32.16 kg/m2 [facility] Oxygen saturation in Arterial blood by Pulse oximetry 2023-09-25 16:40:00 100 /min [facility] Systolic blood pressure 2023-09-14 00:51:00 104 mm[Hg] [facility] Diastolic blood pressure 2023-09-14 00:51:00 72 mm[Hg] [facility] Heart rate 2023-09-14 00:51:00 95 /min [facility] Body temperature 2023-09-14 00:51:[address] [facility] Respiratory rate 2023-09-14 00:51:00 17 /min [facility] Body height 2023-09-14 00:51:00 149.9 cm [facility] Body weight 2023-09-14 00:51:00 72.576 kg [facility] BMI 2023-09-14 00:51:00 32.32 kg/m2 [facility] Oxygen saturation in Arterial blood by Pulse oximetry 2023-09-14 00:51:00 97 /min [facility] Systolic blood pressure 2023-07-22 17:14:08 124 mm[Hg] [facility] Diastolic blood pressure 2023-07-22 17:14:08 83 mm[Hg] [facility] Heart rate 2023-07-22 17:14:08 97 /min [facility] Body temperature 2023-07-22 17:14:[address] [facility] Respiratory rate 2023-07-22 17:14:08 20 /min [facility] Body height 2023-07-22 17:13:00 149[facility]9 [facility] 2023-07-22 17:13:00 71.94 kg [facility] BMI 2023-07-22 17:13:00 32.03 kg[facility]m2 [facility] Oxygen saturation in Arterial blood by Pulse oximetry 2023-07-22 17:13:00 100 /min [facility] Systolic blood pressure 2023-07-22 00:25:00 103 mm[Hg] [facility] Diastolic blood pressure 2023-07-22 00:25:00 71 mm[Hg] [facility] Heart rate 2023-07-22 00:25:00 104 /min [facility] Body temperature 2023-07-22 00:25:[address] [facility] Respiratory rate 2023-07-22 00:25:00 16 /min [facility] Body weight 2023-07-22 00:25:00 70.308 kg [facility] BMI 2023-07-22 00:25:00 31.31 kg/m2 [facility] Oxygen saturation in Arterial blood by Pulse oximetry 2023-07-22 00:25:00 97 /min [facility] Systolic blood pressure 2023-07-05 20:52:00 111 mm[Hg] [facility] Diastolic blood pressure 2023-07-05 20:52:00 77 mm[Hg] [facility] Heart rate 2023-07-05 20:52:00 90 /min [facility] Body temperature 2023-07-05 20:52:[address] [facility] Respiratory rate 2023-07-05 20:52:00 14 /min [facility] Body height 2023-07-05 20:52:00 149.9 cm [facility] Body weight 2023-07-05 20:52:00 71.442 kg [facility] BMI 2023-07-05 20:52:00 31.81 kg/m2 [facility] Oxygen saturation in Arterial blood by Pulse oximetry 2023-07-05 20:52:00 97 /min [facility] Systolic blood pressure 2023-05-01 23:00:00 97 mm[Hg] [facility] Diastolic blood pressure 2023-05-01 23:00:00 84 mm[Hg] [facility] Heart rate 2023-05-01 23:00:00 67 /min [facility] Respiratory rate 2023-05-01 23:00:00 16 /min [facility] Oxygen saturation in Arterial blood by Pulse oximetry 2023-05-01 23:00:00 99 /min [facility] Body temperature 2023-05-01 18:55:[address] [facility] Body height 2023-05-01 18:55:00 149.9 cm [facility] Body weight 2023-05-01 18:55:00 68.04 kg [facility] BMI 2023-05-01 18:55:00 30.30 kg/m2 [facility] Systolic blood pressure 2023-01-31 12:31:00 125 mm[Hg] [facility] Diastolic blood pressure 2023-01-31 12:31:00 83 mm[Hg] [facility] Heart rate 2023-01-31 12:31:00 101 /min [facility] Body temperature 2023-01-31 12:31:[address] [facility] Respiratory rate 2023-01-31 12:31:00 18 /min [facility] Body weight 2023-01-31 12:31:00 68.04 kg [facility] BMI 2023-01-31 12:31:00 30.30 kg/m2 [facility] Oxygen saturation in Arterial blood by Pulse oximetry 2023-01-31 12:31:00 99 /min [facility] BP Diastolic 2022-12-04 00:00:00 72 mm[Hg] [facility] Height 2022-12-04 00:00:00 59 [in_i] [facility] BMI (Body Mass Index) 2022-12-04 00:00:00 33.1 kg/m2 [facility] BP Systolic 2022-12-04 00:00:00 118 mm[Hg] [facility] Body Weight 2022-12-04 00:00:00 164 [lb_av] [facility] Systolic blood pressure 2022-11-01 23:40:00 99 mm[Hg] [facility] Diastolic blood pressure 2022-11-01 23:40:00 75 mm[Hg] [facility] Heart rate 2022-11-01 23:40:00 73 /min [facility] Respiratory rate 2022-11-01 23:40:00 15 /min [facility] Oxygen saturation in Arterial blood by Pulse oximetry 2022-11-01 23:40:00 99 /min [facility] Body temperature 2022-11-01 22:06:[address] [facility] Body height 2022-11-01 22:06:00 149.9 cm [facility] Body weight 2022-11-01 22:06:00 68.04 kg [facility] BMI 2022-11-01 22:06:00 30.30 kg/m2 [facility] Systolic blood pressure 2022-10-08 08:00:00 120 mm[Hg] [facility] Diastolic blood pressure 2022-10-08 08:00:00 84 mm[Hg] [facility] Heart rate 2022-10-08 08:00:00 90 /min [facility] Respiratory rate 2022-10-08 08:00:00 21 /min [facility] Oxygen saturation in Arterial blood by Pulse oximetry 2022-10-08 08:00:00 100 /min [facility] Body temperature 2022-10-08 05:56:[address] [facility] Body height 2022-10-08 05:56:00 149.9 cm [facility] Body weight 2022-10-08 05:56:00 68.04 kg [facility] BMI 2022-10-08 05:56:00 30.30 kg/m2 [facility] Systolic blood pressure 2022-08-13 18:00:00 100 mm[Hg] [place] [facility] Diastolic blood pressure 2022-08-13 18:00:00 56 mm[Hg] [facility] Heart rate 2022-08-13 18:00:00 80 /min [facility] Respiratory rate 2022-08-13 18:00:00 13 /min [facility] Oxygen saturation in Arterial blood by Pulse oximetry 2022-08-13 18:00:00 100 /min [facility] Body temperature 2022-08-13 16:28:[address] [facility] Body weight 2022-08-13 16:28:00 65.772 kg [facility] BMI 2022-08-13 16:28:00 29.29 kg/m2 [facility] Systolic blood pressure 2022-07-15 00:59:00 115 mm[Hg] [facility] Diastolic blood pressure 2022-07-15 00:59:00 73 mm[Hg] [facility] Heart rate 2022-07-15 00:59:00 102 /min [facility] Body temperature 2022-07-15 00:59:[address] [facility] Respiratory rate 2022-07-15 00:59:00 20 /min [facility] Body height 2022-07-15 00:59:00 149.9 cm [facility] Body weight 2022-07-15 00:59:00 70.67 kg [facility] BMI 2022-07-15 00:59:00 31.47 kg/m2 [facility] Oxygen saturation in Arterial blood by Pulse oximetry 2022-07-15 00:59:00 99 /min [facility] BP Diastolic 2022-06-12 00:00:00 60 mm[Hg] [facility] Height 2022-06-12 00:00:00 59 [in_i] [facility] BMI (Body Mass Index) 2022-06-12 00:00:00 30.9 kg/m2 [facility] BP Systolic 2022-06-12 00:00:00 104 mm[Hg] [facility] Body Weight 2022-06-12 00:00:00 153 [lb_av] [facility] Systolic blood pressure 2021-12-21 07:00:00 107 mm[Hg] [facility] Diastolic blood pressure 2021-12-21 07:00:00 90 mm[Hg] [facility] Heart rate 2021-12-21 07:00:00 94 /min [facility] Oxygen saturation in Arterial blood by Pulse oximetry 2021-12-21 07:00:00 100 /min [facility] Body temperature 2021-12-21 04:45:[address] [facility] Respiratory rate 2021-12-21 04:45:00 19 /min [facility] Body height 2021-12-21 04:45:00 157.5 cm [facility] Body weight 2021-12-21 04:45:00 67.132 kg [facility] BMI 2021-12-21 04:45:00 27.07 kg/m2 [facility] BP Diastolic 2021-12-19 00:00:00 68 mm[Hg] [facility] Height 2021-12-19 00:00:00 59 [in_i] [facility] BMI (Body Mass Index) 2021-12-19 00:00:00 30.3 kg/m2 [facility] BP Systolic 2021-12-19 00:00:00 98 mm[Hg] [facility] Body Weight 2021-12-19 00:00:00 150 [lb_av] [facility] Systolic blood pressure 2021-11-03 07:31:00 112 mm[Hg] [facility] Diastolic blood pressure 2021-11-03 07:31:00 64 mm[Hg] [facility] Heart rate 2021-11-03 07:31:00 88 /min [facility] Respiratory rate 2021-11-03 07:31:00 16 /min [facility] Oxygen saturation in Arterial blood by Pulse oximetry 2021-11-03 07:31:00 100 /min [facility] Body temperature 2021-11-03 05:48:[address] [facility] Body height 2021-11-03 05:47:00 149.9 cm [facility] Body weight 2021-11-03 05:47:00 63.504 kg [facility] BMI 2021-11-03 05:47:00 28.28 kg/m2 [facility] BP Diastolic 2021-10-14 00:00:00 58 mm[Hg] [facility] Height 2021-10-14 00:00:00 59 [in_i] [facility] BMI (Body Mass Index) 2021-10-14 00:00:00 27.3 kg/m2 [facility] BP Systolic 2021-10-14 00:00:00 124 mm[Hg] [facility] Weight 2021-10-14 00:00:00 135 [lb_av] [facility] Systolic blood pressure 2021-08-24 22:49:00 122 mm[Hg] [facility] Diastolic blood pressure 2021-08-24 22:49:00 82 mm[Hg] [facility] Heart rate 2021-08-24 22:49:00 117 /min [facility] Body temperature 2021-08-24 22:49:[address] [facility] Respiratory rate 2021-08-24 22:49:00 16 /min [facility] Body height 2021-08-24 22:49:00 149.9 cm [facility] Body weight 2021-08-24 22:49:00 56.246 kg [facility] BMI 2021-08-24 22:49:00 25.04 kg/m2 [facility] Oxygen saturation in Arterial blood by Pulse oximetry 2021-08-24 22:49:00 97 /min [facility] Systolic blood pressure 2021-08-06 20:35:00 124 mm[Hg] [facility] Diastolic blood pressure 2021-08-06 20:35:00 74 mm[Hg] [facility] Heart rate 2021-08-06 20:35:00 91 /min [facility] Body temperature 2021-08-06 20:35:[address] [facility] Respiratory rate 2021-08-06 20:35:00 18 /min [facility] Body height 2021-08-06 20:35:00 149.9 cm [facility] Body weight 2021-08-06 20:35:00 56.246 kg [facility] BMI 2021-08-06 20:35:00 25.04 kg/m2 [facility] Oxygen saturation in Arterial blood by Pulse oximetry 2021-08-06 20:35:00 99 /min [facility] BP Systolic 2024-09-26 10:13:00 126 mm[Hg] Step hen [facility] BP Diastolic 2024-09-26 10:13:00 81 mm[Hg] Jd phen F [facility] Weight Measured 2024-09-26 10:13:00 169.50 pounds Garrett F Jas[facility] Height Measured 2024-09-26 10:13:00 59.65 inches Garrett F [facility] Body Temperature 2024-09-26 10:13:00 97.90 degrees Garrett F Jaswinder Heart Rate 2024-09-26 10:13:00 82.00 /min Celina en F [facility] Respiratory Rate 2024-09-26 10:13:00 18.00 /min Garrett F [facility]as[facility] Weight Measured 2024-02-03 14:17:00 164.40 pounds Garrett F Jaswinder Height Measured 2024-02-03 14:17:00 59.65 inches Garrett [...] BP Diastolic 2021-07-16 08:36:00 78 mm[Hg] Jd eri F [facility] Weight Measured 2021-07-16 08:36:00 121.40 pounds Garrett F Jaswinder Height Measured 2021-07-16 08:36:00 59.65 inches Garrett F [facility] Body Temperature 2021-07-16 08:36:00 98.30 degrees Garrett Georgette San Heart Rate 2021-07-16 08:36:00 Celina en F [facility]as[facility] Respiratory Rate 2021-07-16 08:36:00 118.00 /min Garrettabby San Weight Measured 2021-04-25 14:08:00 121.20 pounds Height [...] Attend emilio [facility] POCT MOLECULAR STREP 2024-09-04 19:19:00 Unknown, Renae luque [facility] POCT TEST 2024-06-21 00:42:[address] [facility] LIPASE 2024-06-21 00:29:00 Jesusita Beaulieu [facility] COMP. METABOLIC PANEL ([id number]) 2024-06-21 00:29:[address] [facility] CBC WITH DIFF 2024-06-21 00:29:00 Jesusita Beaulieu [facility] POCT MOLECULAR STREP 2024-05-03 22:55:00 Unknown, Attmaryan luque [facility] XR LUMBAR SPINE 3 VW 2024-03-05 04:32:[address] [facility] POCT TEST 2024-03-05 03:01:[address] [facility] URINALYSIS 2024-03-05 02:56:00 Mami Shabazz [facility] POCT TEST 2023-12-15 00:45:[address] [facility] POCT MOLECULAR STREP 2023-12-07 02:10:00 Unknown, Atte ene [facility] XR CHEST 1 VW 2023-10-18 17:56:10 Poppy Lydia [facility] CREATINE KINASE 2023-10-18 16:51:00 Lydia Tyler [facility] LIPASE 2023-10-18 16:51:00 Poppy Lydia [facility] MAGNESIUM 2023-10-18 16:51:00 Poppy Lydia [facility] TEST, SERUM 2023-10-18 16:51:[address] [facility] TROPONIN I 2023-10-18 16:51:00 Poppy [facility] THYROID STIMULATING HORMONE 2023-10-18 16:51:[address] [facility] COMP. METABOLIC PANEL ([id number]) 2023-10-18 16:51:[address] [facility] CBC WITH DIFF 2023-10-18 16:51:00 Lydia Tyler [facility] RAPID INFLUENZA A/B 2023-10-18 16:48:[address] [facility] COVID-19 (ID NOW RAPID TESTING) 2023-10-18 16:48:[address] [facility] CONSENT/REFUSAL FOR DIAGNOSIS AND TREATMENT 2023-10-18 16:23:40 Doctor Unassigned, [place] [facility] POCT SARS-COV-2 ANTIGEN (BINAX NOW) 2023-09-25 16:59:[address] [facility] POCT MOLECULAR FLU 2023-09-25 16:49:00 Unknown, Attend ing [facility] POCT MOLECULAR STREP 2023-09-25 16:47:00 Unknown, Atte ene [facility] XR FOOT 3+ VW LEFT 2023-09-14 01:12:23 Meagan Monteiro [facility] XR CHEST 1 VW 2023-07-22 17:58:35 Peter Minor [facility] CONSENT/REFUSAL FOR DIAGNOSIS AND TREATMENT 2023-07-22 16:53:37 Doctor Unassigned, [place] [facility] POCT MOLECULAR STREP 2023-07-22 00:24:00 Unknown, Atte ene [facility] POCT SARS-COV-2 ANTIGEN (BINAX NOW) 2023-07-22 00:16:[address] [facility] ASSIGNMENT OF BENEFITS 2023-07-05 20:47:23 Docto r Unassigned, [place] [facility] CT ANGIOGRAM HEAD 2023-05-01 20:35:[address] [facility] CT ANGIOGRAM NECK 2023-05-01 20:35:[address] [facility] CT HEAD WO CONTRAST 2023-05-01 20:34:[address] [facility] TROPONIN I 2023-05-01 19:35:00 [facility] FREE T4 2023-05-01 19:35:00 [facility] COMP. METABOLIC PANEL ([id number]) 2023-05-01 19:35:[address] [facility] CBC WITH DIFF 2023-05-01 19:35:00 Karissa Fox [facility] PROTHROMBIN TIME / INR 2023-05-01 19:35:[address] [facility] ACTIVATED PARTIAL THRMPLAS HUMERA 2023-05-01 19:35:[address] [facility] URINALYSIS 2023-05-01 19:35:00 [facility] N-TERMINAL PRO-BNP 2023-05-01 19:35:[address] [facility] URINE DRUG (IMMUNOASSAY) - COMPREHENSIVE DRUG SCREEN W/O REFLEX 2023-05-01 19:35:[address] [facility] POCT TEST 2023-05-01 19:25:[address] [facility] CONSENT/REFUSAL FOR DIAGNOSIS AND TREATMENT 2023-05-01 18:47:06 Doctor Unassigned, [place] [facility] POCT TEST 2023-01-31 12:38:00 Nona Dean ra [facility] URINALYSIS 2023-01-31 12:36:00 [facility] PRIVACY PRACT[facility] 2023-01-31 12:29:08 Doctor Unassigned, [place] [facility] CONSENT/REFUSAL FOR DIAGNOSIS AND TREATMENT 2023-01-31 12:28:05 Doctor Unassigned, [place] [facility] EKG-12 LEAD 2022-11-02 00:42:13 Mami Shabazz [facility] XR CHEST 1 VW 2022-11-01 22:59:32 Mami Shabazz [facility] LIPASE 2022-11-01 22:27:00 Mami Shabazz [facility] TEST, SERUM 2022-11-01 22:27:[address] [facility] TROPONIN I 2022-11-01 22:27:00 Mami Shabazz [facility] THYROID STIMULATING HORMONE 2022-11-01 22:27:[address] [facility] COMP. METABOLIC PANEL ([id number]) 2022-11-01 22:27:[address] [facility] CBC WITH DIFF 2022-11-01 22:27:00 Mami Shabazz [facility] N-TERMINAL PRO-BNP 2022-11-01 22:27:[address] [facility] POCT TEST 2022-10-08 06:35:[address] [facility] XR CHEST 1 VW 2022-10-08 06:34:[address] [facility] URINALYSIS 2022-10-08 06:21:00 Pawan Estrella [facility] LIPASE 2022-10-08 06:16:00 Pawan Estrella [facility] TROPONIN I 2022-10-08 06:16:00 Pawan Estrella [facility] FREE T4 2022-10-08 06:16:00 Pawan Estrella [facility] THYROID STIMULATING HORMONE 2022-10-08 06:16:[address] [facility] COMP. METABOLIC PANEL ([id number]) 2022-10-08 06:16:[address] [facility] CBC WITH DIFF 2022-10-08 06:16:[address] [facility] CONSENT/REFUSAL FOR DIAGNOSIS AND TREATMENT 2022-10-08 05:45:45 Doctor Unassigned, [place] [facility] CT ABDOMEN PELVIS W CONTRAST 2022-08-13 17:41:[address] [facility] POCT TEST 2022-08-13 17:11:[address] [facility] LIPASE 2022-08-13 17:00:00 Pawan Estrella [facility] MAGNESIUM 2022-08-13 17:00:00 Pawan Estrella [facility] COMP. METABOLIC PANEL ([id number]) 2022-08-13 17:00:[address] [facility] CBC WITH DIFF 2022-08-13 17:00:[address] [facility] URINALYSIS 2022-08-13 17:00:00 Pawan Estrella [facility] CONSENT/REFUSAL FOR DIAGNOSIS AND TREATMENT 2022-08-13 16:17:17 Doctor Unassigned, [place] [facility] RAPID STREP SCREEN FOR GROUP A 2022-07-15 01:04:[address] [facility] RAPID INFLUENZA A/B 2022-07-15 01:04:[address] [facility] COVID-19 (ID NOW RAPID TESTING) 2022-07-15 01:04:[address] [facility] CONSENT/REFUSAL FOR DIAGNOSIS AND TREATMENT 2022-07-15 00:41:47 Doctor Unassigned, [place] [facility] URINALYSIS 2021-12-21 05:56:00 Doris Dean [facility] POCT TEST 2021-12-21 05:54:00 Nona Dean ra [facility] MAGNESIUM 2021-12-21 05:06:00 Doris Dean [facility] COMP. METABOLIC PANEL ([id number]) 2021-12-21 05:06:[address] [facility] CBC WITH DIFF 2021-12-21 05:06:00 Doris Dean [facility] NOTICE OF PRIVACY PRACTICES 2021-12-21 04:36:43 Doctor Unassigned, [place] [facility] CONSENT/REFUSAL FOR DIAGNOSIS AND TREATMENT 2021-12-21 04:35:34 Doctor Unassigned, [place] [facility] XR CHEST 1 VW 2021-11-03 06:22:30 Nerissa Ely [facility] POCT TEST 2021-11-03 06:19:[address] [facility] URINALYSIS 2021-11-03 06:17:00 Nerissa Ely [facility] D-DIMER 2021-11-03 06:16:00 Nerissa Ely [facility] TROPONIN I 2021-11-03 06:03:00 Nerissa Ely [facility] COMP. METABOLIC PANEL ([id number]) 2021-11-03 06:03:[address] [facility] CBC WITH DIFF 2021-11-03 06:03:00 Nerissa Ely [facility] N-TERMINAL PRO-BNP 2021-11-03 06:03:[address] [facility] COVID-19 (ID NOW RAPID TESTING) 2021-11-03 06:02:[address] [facility] CONSENT/REFUSAL FOR DIAGNOSIS AND TREATMENT 2021-11-03 05:41:29 Doctor Unassigned, [place] [facility] CONSENT/REFUSAL FOR DIAGNOSIS AND TREATMENT 2021-08-24 22:45:48 Doctor Unassigned, [place] [facility] Plan of Care Planned Activity Planned [...] Plan of Care Not e [code = 74268-1] Goal Plan of Care Not e [code = 26412-1] Goal Plan of Care Not e [code = 54784-3] Goal Plan of Care Not e [code = 92611-0] Goal Plan of Care Not e [code = 08365-5] Goal Plan of Care Not e [code = 93298-0] Goal Plan of Care Not e [code = 12344-7] Goal Plan of Care Not e [code = 24782-8] Goal Plan of Care Not e [code = 87316-4] Goal Plan of Care Not e [code = 51570-4] Goal Plan of Care Not e [code = 26061-0] Goal Plan of Care Not e [code = 56080-2] Goal Plan of Care Not e [code = 62680-2] Goal Plan of Care Not e [code = 74212-0] Goal Plan of Care Not e [code = 23550-1] Goal Plan of Care Not e [code = 03436-7] Instructions [facility] En[facility] Start Date/Time End Date/Time Encounter Type Admission Type Attending Clinicians Care Facility Care Department Encounter ID Source 2022-07-17 13:34:02 Outpatient [facility]W Jose [id number] [place] [address] 2021-08-19 20:26:01 Emergency [facility] [id number] [facility] 2021-08-18 22:27:08 Emergency [facility] [id number] [facility] ity [facility] 2021-08-18 01:47:18 Emergency [facility] [id number] [facility] ity [facility] 2021-08-17 23:40:45 Emergency [facility] [id number] [facility] ity [facility] 2021-08-17 23:13:41 Emergency [facility] [id number] [facility] ity [facility] 2021-08-16 23:43:08 Emergency [facility] [id number] [facility] ity [facility] 2021-08-16 18:44:42 Emergency [facility] [id number] [facility] ity [facility] 2021-08-16 11:57:07 Emergency [facility] [id number] [facility] 2021-08-15 10:54:31 Emergency [facility] [id number] [facility] 2024-09-28 14:24:54 2024-09-28 14:24:54 Outpatient [facility] [id number] Garrett San 2024-09-26 10:05:58 2024-09-26 10:05:58 Outpatient [facility] [id number] Garrett San 2024-09-26 00:00:00 2024-09-26 00:00:00 Outpatient Visit [facility] [id number] Garrett San 2024-09-04 12:40:00 2024-09-04 13:56:25 Outpatient R STEPHANIA NIX [facility] [id number] [facility] 2024-09-04 12:40:00 2024-09-04 13:56:25 Urgent Care Stephania Nix Unknown, Attending [facility] [id number] 350.1.13.10 4.2.7.2.686 [id number] [facility] 2024-06-20 19:12:00 2024-06-20 20:41:00 Emergency X JESUSITA BEAULIEU WAKILI [facility] ERT [id number] [facility] 2024-06-20 19:12:00 2024-06-20 20:41:00 Emergency Jesusita Beaulieu [facility] [id number] 350.1.13.10 4.2.7.2.686 [id number] [facility] 2024-05-03 17:40:00 2024-05-03 18:12:08 Outpatient REENA BELCHER [facility] [id number] [facility] 2024-05-03 17:40:00 2024-05-03 18:00:00 Urgent Care Reena Adamson Unknown, Attending [facility] [id number] 350.1.13.10 4.2.7.2.686 [id number] [facility] 2024-03-20 23:44:00 2024-03-21 01:03:00 Emergency X DORIS DEAN SANDRA [facility] ERT [id number] [facility] 2024-03-20 23:44:00 2024-03-21 01:03:00 Emergency Doris Dean [facility] [id number] 350.1.13.10 4.2.7.2.686 [id number] [facility] 2024-03-04 21:15:00 2024-03-05 00:41:00 Emergency X ROMULOMAMI WASHINGTON MAMI SHABAZZ [facility] ERT [id number] [facility] 2024-03-04 21:15:00 2024-03-05 00:41:00 Emergency RomuloMami washington [facility] 1.2.840.114 350.1.13.10 4.2.7.2.686 [id number] [facility] 2024-02-20 19:00:00 2024-02-20 19:23:25 Outpatient R SOBIA SLOAN [facility] [id number] [facility] 2024-02-20 19:00:00 2024-02-20 19:20:00 Urgent Care Sobia Sloan Unknown, Attending [facility] [id number] 350.1.13.10 4.2.7.2.686 [id number] [facility] 2024-02-03 14:13:29 2024-02-03 14:13:29 Outpatient [facility] [id number] Garrett San 2024-02-03 00:00:00 2024-02-03 00:00:00 Outpatient Visit [facility] [id number] Garrett San 2023-12-14 18:23:00 2023-12-14 19:59:00 Emergency X MUNDO CHAMORRO [facility] ERT [id number] [facility] 2023-12-14 18:23:00 2023-12-14 19:59:00 Emergency Mundo Chamorro [facility] 1..840.114 350.1.13.10 4.2.7.2.686 [id number] [facility] 2023-12-12 00:00:00 2023-12-12 00:00:00 Outpatient GC_TEG_Bocc alandro_C PRIV PRIV [id number] [facility] 2023-12-06 20:00:00 2023-12-06 20:23:01 Outpatient STEPHANIA SRINIVASAN [facility] [id number] [facility] 2023-12-06 20:00:00 2023-12-06 20:23:01 Urgent Care BoydStephania Unknown, Attending [facility] 1..840.114 350.1.13.10 4.2.7.2.686 [id number] [facility] 2023-11-13 00:00:00 2023-11-13 00:00:00 Outpatient GC_TEG_Bocc alandro_C PRIV PRIV [id number] [facility] 2023-10-18 10:36:00 2023-10-18 12:26:00 Emergency X LYDIA TYLER [facility] ERT [id number] [facility] 2023-10-18 10:36:00 2023-10-18 12:26:00 Emergency Lydia Tyler [facility] 1..840.114 350.1.13.10 4.2.7.2.686 [id number] [facility] 2023-10-15 00:00:00 2023-10-15 00:00:00 Outpatient GC_[email or web address] alandro_C PRIV PRIV [id number] [facility] 2023-09-25 10:00:00 2023-09-25 10:20:00 Urgent Care Lorena Soler Unknown, Attending [facility] 1..840.114 [id number] [facility] 2023-09-25 10:00:00 2023-09-25 10:00:00 Outpatient R LORENA SOLER [facility] [id number] [facility] 2023-09-13 18:59:45 2023-09-13 23:59:00 Outpatient R JACKI MONTEIRO [facility] [id number] [facility] 2023-09-13 18:59:45 2023-09-13 23:59:00 Hospital Encounter Jacki Monteiro [facility] 1.2.840.114 350.1.13.10 4.2.7.2.686 [id number] [facility] 2023-09-13 18:40:00 2023-09-13 19:19:33 Urgent Care Jacki Monteiro Unknown, Attending [facility] 1..840.114 350.1.13.10 4.2.7.2.686 [id number] [facility] 2023-07-22 12:15:00 2023-07-22 14:32:00 Emergency X PETER [facility] ERT [id number] [facility] 2023-07-22 12:15:00 2023-07-22 14:32:00 Emergency Peter [facility] 1..840.114 350.1.13.10 4.2.7.2.686 [id number] [facility] 2023-07-21 19:20:00 2023-07-21 19:26:44 Outpatient R JUAN SOLERHOLDEN [facility] [id number] [facility] 2023-07-21 19:20:00 2023-07-21 19:26:44 Urgent Care Lorena Soler Unknown, Attending [facility] MED[facility] OFF[facility] BUILD[facility] 1.2.840.114 350.1.13.10 4.2.7.2.686 [id number] [facility] 2023-07-05 15:40:00 2023-07-05 17:00:55 Outpatient R JACKI MONTEIRO [facility] [id number] [facility] 2023-07-05 15:40:00 2023-07-05 17:00:55 Urgent Care Jacki Monteiro Unknown, Attending [facility] MED[facility] 1.2.840.114 350.1.13.10 4.2.7.2.686 [id number] [facility] 2023-07-05 00:00:00 2023-07-05 00:00:00 Orders Only Doctor Unassigned, [place] [facility] 1.2.840.114 350.1.13.10 4.2.7.2.686 [id number] [facility] 2023-06-11 00:00:00 2023-06-11 00:00:00 Outpatient GC_TEG_Bocc alandro_C PRIV PRIV [id number] [facility] 2023-06-11 00:00:00 2023-06-11 00:00:00 Outpatient GC_TEG_Bocc alandro_C PRIV PRIV [id number] [facility] 2023-05-06 15:02:08 2023-05-06 15:02:08 Outpatient SFA SHUKRI [id number] [facility] 2023-05-01 13:58:00 2023-05-01 18:32:00 Emergency X KARISSA FOX [facility] ERT [id number] [facility] 2023-05-01 13:58:00 2023-05-01 18:32:00 Emergency Karissa Fox [facility] 1.2.840.114 350.1.13.10 4.2.7.2.686 [id number] [facility] 2023-04-28 00:00:00 2023-04-28 00:00:00 Outpatient GC_TEG_Bocc alandro_C PRIV PRIV [id number] [facility] 2023-04-27 00:00:00 2023-04-27 00:00:00 Outpatient GC_TEG_Bocc alandro_C PRIV PRIV [id number] [facility] 2023-03-30 15:31:40 2023-03-30 15:31:40 Outpatient SFA SFA [id number] [facility] 2023-03-01 00:00:00 2023-03-01 00:00:00 Outpatient GC_TEG_Bocc alandro_C PRIV PRIV [id number] [facility] 2023-03-01 00:00:00 2023-03-01 00:00:00 Outpatient GC_TEG_Bocc alandro_C PRIV PRIV [id number] [facility] 2023-02-09 14:26:37 2023-02-09 14:26:37 Outpatient SFA SFA [id number] [facility] 2023-02-01 00:00:00 2023-02-01 00:00:00 Outpatient GC_TEG_Bocc alandro_C PRIV PRIV [id number] [facility] 2023-01-31 07:40:00 2023-01-31 08:57:00 Emergency X DORIS DEAN [facility] ERT [id number] [facility] 2023-01-31 07:40:00 2023-01-31 08:57:00 Emergency Doris Dean [facility] 1.2.840.114 350.1.13.10 4.2.7.2.686 [id number] [facility] 2023-01-31 00:00:00 2023-01-31 00:00:00 Orders Only Doctor Unassigned, [place] [facility] 1..840.114 350.1.13.10 4.2.7.2.686 [id number] [facility] 2023-01-09 11:08:41 2023-01-09 11:08:41 Outpatient [facility] [id number] Garrett San 2023-01-09 00:00:00 2023-01-09 00:00:00 Outpatient Visit [facility] [id number] [facility] 2023-01-04 00:00:00 2023-01-04 00:00:00 Outpatient GC_TEG_Bocc alandro_C [facility] [id number] [facility] 2022-12-04 00:00:00 2022-12-04 00:00:00 Outpatient GC_TEG_Bocc alandro_C [facility] [id number] [facility] 2022-12-04 00:00:00 2022-12-04 00:00:00 Keri Bernard MD: [address], [address], [place] [address] , Ph. [phone] [facility] - GC_TEG_Fann in Office [id number] [facility] 2022-11-19 13:24:46 2022-11-19 13:24:46 Outpatient [facility] [id number] [facility] 2022-11-01 15:54:00 2022-11-01 18:51:00 Emergency X MAMI SHABAZZ [facility] ERT [id number] [facility] 2022-11-01 15:54:00 2022-11-01 18:51:00 Emergency Mami Shabazz [facility] 1..840.114 350.1.13.10 4.2.7.2.686 [id number] [facility] 2022-10-14 10:30:00 2022-10-14 10:30:00 Outpatient R DONTE, OSORIO [facility] [id number] [facility] 2022-10-07 23:50:00 2022-10-08 02:56:00 Emergency X PAWAN ESTRELLA [facility] ERT [id number] [facility] 2022-10-07 23:50:00 2022-10-08 02:56:00 Emergency Pawan Estrella [facility] 1.2.840.114 350.1.13.10 4.2.7.2.686 [id number] [facility] 2022-08-18 00:00:00 2022-08-18 00:00:00 Outpatient GC_TEG_Bocc alandro_C PRIV PRIV [id number] [facility] 2022-08-13 11:30:00 2022-08-13 14:17:00 Emergency X PAWAN ESTRELLA [facility] ERT [id number] [facility] 2022-08-13 11:30:00 2022-08-13 14:17:00 Emergency Pawan Estrella [facility] 1.2.840.114 350.1.13.10 4.2.7.2.686 [id number] [facility] 2022-07-14 20:07:00 2022-07-14 21:01:00 Emergency X SALOMEUSAMAAUDREY GUZMANRAKESH [facility] ERT [id number] [facility] 2022-07-14 20:07:00 2022-07-14 21:01:00 Emergency Salomeusamaaura Randyeveilne Crenshaw [facility] 1.2.840.114 350.1.13.10 4.2.7.2.686 [id number] [facility] 2022-07-14 00:00:00 2022-07-14 00:00:00 Orders Only Doctor Unassigned, [place] [facility] 1.2.840.114 350.1.13.10 4.2.7.2.686 [id number] [facility] 2022-06-23 00:00:00 2022-06-23 00:00:00 Outpatient GC_TEG_Bocc alandro_C PRIV PRIV [id number] [facility] 2022-06-19 00:00:00 2022-06-19 00:00:00 Outpatient Visit [id number] 2022-06-12 00:00:00 2022-06-12 00:00:00 Outpatient GC_TEG_Bocc alandro_C PRIV PRIV [id number] [facility] 2022-06-12 00:00:00 2022-06-12 00:00:00 Outpatient Keri Bernard PRIV PRIV [id number] 2022-06-12 00:00:00 2022-06-12 00:00:00 Keri Bernard MD: [address], [place] [address], [place] [address] , Ph. [phone] [facility] - GC_TEG_Fann in Office [id number] [facility] 2022-06-10 00:00:00 2022-06-10 00:00:00 Outpatient GC_TEG_Bocc alandro_C PRIV PRIV [id number] [facility] 2022-04-20 01:17:00 2022-04-20 01:17:00 Outpatient GC_TEG_Bocc alandro_C PRIV PRIV [id number] [facility] 2022-03-23 12:58:00 2022-03-23 12:58:00 Outpatient GC_TEG_Bocc alandro_C PRIV PRIV [id number] [facility] 2022-02-24 01:30:00 2022-02-24 01:30:00 Outpatient GC_TEG_Bocc alandro_C PRIV PRIV [id number] [facility] 2022-02-10 11:16:00 2022-02-10 11:16:00 Outpatient GC_TEG_Bocc alandro_C PRIV PRIV [id number] [facility] 2021-12-20 22:51:00 2021-12-21 01:26:00 Emergency X DORIS DEAN [facility] ERT [id number] [facility] 2021-12-20 22:51:00 2021-12-21 01:26:00 Emergency Doris Dean [facility] 1.2.840.114 350.1.13.10 4.2.7.2.686 [id number] [facility] 2021-12-19 11:30:00 2021-12-19 11:30:00 Outpatient GC_TEG_Bocc alandro_C PRIV PRIV [id number] [facility] 2021-12-19 00:00:00 2021-12-19 00:00:00 Outpatient Keri Bernard [facility] [id number] 2021-12-19 00:00:00 2021-12-19 00:00:00 Keri Bernard MD: [address], [address], [place] [address] , Ph. [phone] [facility] - GC_TEG_Fann in Office [id number] [facility] 2021-12-18 12:25:00 2021-12-18 12:25:00 Outpatient GC_TEG_Bocc alandro_C [facility] PRIV [id number] [facility] 2021-11-02 23:53:00 2021-11-03 02:00:00 Emergency NERISSA LEE [facility] ERT [id number] [facility] 2021-11-02 23:53:00 2021-11-03 02:00:00 Emergency Nerissa Ely [facility] 1.840.114 350.1.13.10 4.2.7.2.686 [id number] [facility] 2021-10-14 09:37:00 2021-10-14 09:37:00 Outpatient GC_TEG_Bocc alandro_C [facility] PRIV [id number] [facility] 2021-10-14 00:00:00 2021-10-14 00:00:00 Keri Bernard MD: [address], [address], [place] [address] , Ph. [phone] [facility] - GC_TEG_Fann in Office [id number] [facility] 2021-10-14 00:00:00 2021-10-14 00:00:00 Outpatient Keri Bernard [facility] [id number] 2021-10-02 01:03:00 2021-10-02 01:03:00 Outpatient GC_TEG_Bocc alandro_C [facility] PRIV [id number] [facility] 2021-08-24 17:53:00 2021-08-24 18:39:00 Emergency X MAMI SHABAZZ [facility] ERT [id number] [facility] 2021-08-24 17:53:00 2021-08-24 18:39:00 Emergency Mami Shabazz [facility] 1.840.114 350.1.13.10 4.2.7.2.686 [id number] [facility] 2021-08-06 15:22:10 2021-08-06 17:04:27 Office Visit [facility] 1..840.114 350.1.13.10 4.2.7.2.686 [id number] [facility] 2021-08-06 15:30:00 2021-08-06 15:30:00 Outpatient R ELENA NOEL [facility] [id number] [facility] 2021-07-09 15:29:18 2021-07-09 16:17:25 Office Visit Elena Noel [facility] 1.2.840.114 350.1.13.10 4.2.7.2.686 [id number] [facility] 2021-07-09 15:30:00 2021-07-09 15:30:00 Outpatient R ELENA NOEL [facility] [id number] [facility] 2021-07-09 00:00:00 2021-07-09 00:00:00 Letter (Out) Elena Noel [facility] 1.2.840.114 350.1.13.10 4.2.7.2.686 [id number] [facility] 2021-07-01 00:00:00 2021-07-01 00:00:00 Telephone Elena Noel [facility] 1.2.840.114 350.1.13.10 4.2.7.2.686 [id number] [facility] 2021-06-25 00:00:00 2021-06-25 00:00:00 Transition of Care Tasneem Herman 1.2.840.114 350.1.13.10 4.2.7.2.686 [id number] [facility] 2021-06-25 00:00:00 2021-06-25 00:00:00 Telephone Elena Noel [facility] 1.2.840.114 350.1.13.10 4.2.7.2.686 [id number] [facility] 2021-06-22 01:27:00 2021-06-22 19:45:00 Hospital Encounter Hunter [facility] 1.2.840.114 350.1.13.10 4.2.7.2.686 [id number] [facility] 2021-06-22 10:00:00 2021-06-22 13:31:00 Surgery Tate Zamorano [facility] 1.2.840.114 350.1.13.10 4.2.7.2.686 [id number] [facility] 2021-06-22 00:00:00 2021-06-22 00:00:00 Orders Only Doctor Unassigned, [place] [facility] 1.2.840.114 350.1.13.10 4.2.7.2.686 [id number] [facility] 2021-06-20 17:55:00 2021-06-20 17:55:00 Outpatient [facility] [id number] [facility] 2021-03-19 14:31:00 2021-03-19 16:24:00 Emergency Jodi Salgado R [facility] 1.2.840.114 350.1.13.10 4.2.7.2.686 [id number] [facility] 2021-02-22 00:35:00 2021-02-22 03:11:00 Emergency Peter Minor [facility] 1.2.840.114 350.1.13.10 4.2.7.2.686 [id number] [facility] 2021-02-22 00:35:00 2021-02-22 03:11:00 Emergency X PETER MINOR [facility] ERT [id number] [facility] 2021-01-08 00:00:00 2021-01-08 00:00:00 Patient Outreach Kyle Pascual [facility] 1.2.840.114 350.1.13.10 4.2.7.2.686 [id number] [facility] 2020-12-24 09:30:00 2020-12-24 09:30:00 Outpatient SRINATH MADISON [facility] [id number] [facility] 2020-12-14 18:28:00 2020-12-14 21:29:00 Emergency Sarah Frost F[place] [facility] 1.2.840.114 350.1.13.10 4.2.7.2.686 [id number] [facility] 2020-12-10 08:15:00 2020-12-10 08:15:00 Outpatient OTF DIOP [facility] [id number] [facility] 2020-12-03 20:53:00 2020-12-03 22:14:00 Emergency Chelsea, Katie Shania [facility] 1.2.840.114 350.1.13.10 4.2.7.2.686 [id number] [facility] 2020-12-03 00:00:00 2020-12-03 00:00:00 Orders Only Doctor Unassigned, [place] [facility] 1.2840.114 350.1.13.10 4.2.7.2.686 [id number] [facility] 2020-11-29 20:13:00 2020-12-02 12:20:00 Hospital Encounter Karissa Fox, Karissa Rivera Yaman [facility] 1.2.840.114 350.1.13.10 4.2.7.2.686 [id number] [facility] 2020-11-29 00:00:00 2020-11-29 00:00:00 Orders Only Doctor Unassigned, [place] [facility] 1.2.840.114 350.1.13.10 4.2.7.2.686 [id number] [facility] 2020-09-25 18:31:00 2020-09-25 20:56:00 Emergency Jodi Salgado [facility] 1.2.840.114 350.1.13.10 4.2.7.2.686 [id number] 2020-09-25 18:31:00 2020-09-25 20:56:00 Emergency X JODI SALGADO [facility] ERT [id number] [facility] 2020-09-25 18:31:00 2020-09-25 20:56:00 Emergency Jodi Salgado [facility] 1.2.840.114 350.1.13.10 4.2.7.2.686 [id number] [facility] 2020-09-25 00:00:00 2020-09-25 00:00:00 Orders Only Doctor Unassigned, [place] [facility] 1.2.840.114 350.1.13.10 4.2.7.2.686 [id number] 2020-09-25 00:00:00 2020-09-25 00:00:00 Orders Only Doctor Unassigned, [place] [facility] 1.2.840.114 350.1.13.10 4.2.7.2.686 [id number] [facility] 2020-08-22 00:00:00 2020-08-22 00:00:00 Orders Only Doctor Unassigned, [place] [facility] 1.2.840.114 350.1.13.10 4.2.7.2.686 [id number] 2020-08-22 00:00:00 2020-08-22 00:00:00 Orders Only Doctor Unassigned, [place] [facility] 1.2.840.114 350.1.13.10 4.2.7.2.686 [id number] [facility] 2020-08-06 12:16:00 2020-08-06 14:18:00 Emergency Doris Dean [facility] 1.2.840.114 350.1.13.10 4.2.7.2.686 [id number] 2020-08-06 12:16:00 2020-08-06 14:18:00 Emergency Doris Dean [facility] 1.2.840.114 350.1.13.10 4.2.7.2.686 [id number] [facility] 2020-07-12 08:30:00 2020-07-12 08:30:00 Outpatient CATHLEEN BAXTER [facility] [id number] [facility] 2020-07-10 09:03:00 2020-07-10 10:00:00 Emergency Singer [facility] 1.2.840.114 350.1.13.10 4.2.7.2.686 [id number] 084 [id number] 2020-07-10 09:03:00 2020-07-10 10:00:00 Emergency Singer [facility] 1.2.840.114 350.1.13.10 4.2.7.2.686 [id number] [facility] 2020-07-10 00:00:00 2020-07-10 00:00:00 Orders Only Doctor Unassigned, [place] [facility] 1.2.840.114 350.1.13.10 4.2.7.2.686 [id number] [id number] 2020-07-10 00:00:00 2020-07-10 00:00:00 Orders Only Doctor Unassigned, [place] [facility] 1.2.840.114 350.1.13.10 4.2.7.2.686 [id number] [id number] [facility] 2020-05-29 21:53:00 2020-05-29 23:40:00 Emergency Jesusita Beaulieu [facility] 1.2.840.114 350.1.13.10 4.2.7.2.686 [id number] 084 [id number] 2020-05-29 21:53:00 2020-05-29 23:40:00 Emergency Jesusita Beaulieu [facility] 1.2.840.114 350.1.13.10 4.2.7.2.686 [id number] 084 [id number] [facility] 2019-12-13 10:58:13 2019-12-13 11:51:00 [facility] 1.2.840.114 350.1.13.10 4.2.7.2.686 [id number] 084 [id number] 2019-12-13 10:58:13 2019-12-13 11:51:00 [facility] 1.2.840.114 350.1.13.10 4.2.7.2.686 [id number] [id number] [facility] 2019-12-13 00:00:00 2019-12-13 00:00:00 Orders Only Doctor Unassigned, [place] [facility] 1.2.840.114 350.1.13.10 4.2.7.2.686 [id number] 2019-12-13 00:00:00 2019-12-13 00:00:00 Orders Only Doctor Unassigned, [place] [facility] 1.2.840.114 350.1.13.10 4.2.7.2.686 [id number] [facility] 2019-12-09 17:21:03 2019-12-09 21:13:00 Emergency Pawan Estrella Georgette [facility] 1.2.840.114 350.1.13.10 4.2.7.2.686 [id number] 2019-12-09 17:21:03 2019-12-09 21:13:00 Emergency X PAWAN ESTRELLA [facility] ERT [id number] [facility] 2019-12-09 17:21:03 2019-12-09 21:13:00 Emergency Pawan Estrella [facility] 1.2.840.114 350.1.13.10 4.2.7.2.686 [id number] [facility] 2019-12-09 00:00:00 2019-12-09 00:00:00 Orders Only Doctor Unassigned, [place] [facility] 1.2.840.114 350.1.13.10 4.2.7.2.686 [id number] 2019-12-09 00:00:00 2019-12-09 00:00:00 Orders Only Doctor Unassigned, [place] [facility] 1.2840.114 350.1.13.10 4.2.7.2.686 [id number] [facility] 2019-09-08 00:00:00 2019-09-08 23:59:00 Outpatient NORA RAZA [facility] [id number] [facility] 2019-07-28 10:30:00 2019-07-28 11:17:04 Outpatient SRIKANTH SIMPSON [facility] [id number] [facility] 2019-07-05 23:58:00 2019-07-08 14:34:00 [facility] 1.20.114 350.1.13.10 4.2.7.2.686 [id number] 2019-07-05 23:58:00 2019-07-08 14:34:00 Hospital Encounter [facility] 1.2840.114 350.1.13.10 4.2.7.2.686 [id number] [facility] 2019-07-05 00:00:00 2019-07-05 00:00:00 Nurse Triage [facility] 1.2.840.114 350.1.13.10 4.2.7.2.686 [id number] 2019-07-05 00:00:00 2019-07-05 00:00:00 Nurse Triage [facility] 1.2.840.114 350.1.13.10 4.2.7.2.686 [id number] [facility] 2019-06-29 12:49:05 2019-06-29 13:31:19 Routine Visit Srikanth Quintanilla [facility] OR NURSERY TRANSPLANTER [facility] & CHILD [facility] 1.2.840.114 350.1.13.10 4.2.7.2.686 [id number] 2019-06-29 12:49:05 2019-06-29 13:31:19 Routine Visit Srikanth Quintanilla [facility] OR NURSERY TRANSPLANTER [facility] & CHILD [facility] 1.2.840.114 350.1.13.10 4.2.7.2.686 [id number] [facility] 2019-06-27 00:00:00 2019-06-27 00:00:00 Nurse Triage Arile Tasneem [facility] 1.2.840.114 350.1.13.10 4.2.7.2.686 [id number] [facility] 2019-06-22 12:50:16 2019-06-22 13:50:23 Routine Visit Srikanth Quintanilla [facility] OR NURSERY TRANSPLANTER [facility] & CHILD [facility] 1.2.840.114 350.1.13.10 4.2.7.2.686 [id number] 107 [id number] [facility] 2019-06-14 10:09:39 2019-06-14 10:57:54 Routine Visit Srikanth Quintanilla [facility] OR NURSERY TRANSPLANTER [facility] & CHILD [facility] 1.2.840.114 350.1.13.10 4.2.7.2.686 [id number] [facility] 2019-06-13 12:03:00 2019-06-13 13:50:00 Hospital Encounter Jeremy Peter [facility] 1.2.840.114 350.1.13.10 4.2.7.2.686 [id number] [facility] 2019-06-11 00:07:00 2019-06-11 03:30:00 Hospital Encounter Shlomo Heredia [facility] 1.2.840.114 350.1.13.10 4.2.7.2.686 [id number] [facility] 2019-06-10 00:00:00 2019-06-10 00:00:00 Nurse Triage Luda Ordonez [facility] 1.2.840.114 350.1.13.10 4.2.7.2.686 [id number] [facility] 2019-06-10 00:00:00 2019-06-10 00:00:00 Orders Only Doctor Unassigned, [place] [facility] 1.2.840.114 350.1.13.10 4.2.7.2.686 [id number] [facility] 2019-05-31 13:52:06 2019-05-31 14:35:09 Routine Visit Srikanth Quintanilla [facility] OR NURSERY TRANSPLANTER [facility] & CHILD [facility] 1.2.840.114 350.1.13.10 4.2.7.2.686 [id number] [facility] 2019-05-31 00:00:00 2019-05-31 00:00:00 Telephone Srikanth Quintanilla [facility] OR NURSERY TRANSPLANTER [facility] & CHILD [facility] 1.2.840.114 350.1.13.10 4.2.7.2.686 [id number] [facility] 2019-05-30 00:00:00 2019-05-30 00:00:00 Patient Secure Msg Doctor Unassigned, [place] [facility] 1.2.840.114 350.1.13.10 4.2.7.2.686 [id number] 2019-05-30 00:00:00 2019-05-30 00:00:00 Nurse Triage [facility] 1.2.840.114 350.1.13.10 4.2.7.2.686 [id number] [facility] 2019-05-30 00:00:00 2019-05-30 00:00:00 Patient Secure Msg Doctor Unassigned, [place] [facility] 1.2.840.114 350.1.13.10 4.2.7.2.686 [id number] [facility] 2019-05-24 13:06:39 2019-05-24 13:57:06 Routine Visit Srikanth Quintanilla [facility] OR [facility] 1.2.840.114 350.1.13.10 4.2.7.2.686 [id number] 107 [id number] [facility] 2019-05-19 21:29:00 2019-05-20 00:36:00 Hospital Encounter Rosalio Mccall [facility] 1.2.840.114 350.1.13.10 4.2.7.2.686 [id number] [facility] 2019-05-18 00:00:00 2019-05-18 00:00:00 Nurse Triage [facility] 1.2.840.114 350.1.13.10 4.2.7.2.686 [id number] [facility] 2019-05-18 00:00:00 2019-05-18 00:00:00 Patient Secure Msg Doctor Unassigned, [place] [facility] OR NURSERY TRANSPLANTER [facility] & [facility] 1.2.840.114 350.1.13.10 4.2.7.2.686 [id number] [facility] 2019-05-08 00:00:00 2019-05-08 00:00:00 Orders Only Doctor Unassigned, [place] [facility] 1.2.840.114 350.1.13.10 4.2.7.2.686 [id number] [facility] 2019-04-27 00:00:00 2019-04-27 00:00:00 Patient Secure Msg Doctor Unassigned, [place] [facility] 1.2.840.114 350.1.13.10 4.2.7.2.686 [id number] [facility] 2019-04-19 00:00:00 2019-04-19 00:00:00 Patient Secure Msg Doctor Unassigned, [place] [facility] 1.2.840.114 350.1.13.10 4.2.7.2.686 [id number] [facility] Results Test Description Test Time Test Comments Results Result Co mments Source [facility] [id number] 19:26:38* Test Item Value Reference Range Interpretation Comme nts POCT Molecular Strep (test c ode = 15411-8) Negative Negative Lab Interpretation (test cod e = 01152-6) Normal [facility] Metabolic Panel (42199)2024-06-21 01:14:48* Test Item Value Reference Range Interpretation Comme nts NA (test code = 0954678604) 137 mmol/L 135-145 K (test code = 6277767109) 3.7 mmol/L 3.5-5.0 CL (test code = 3401266766) 101 mmol/L 98-108 CO2 TOTAL (test code = 2787682696) 30 mmol/L 23-31 AGAP (test code = 9905186869) 6 2-16 BUN (test code = 8340909976) 15 mg/dL 7-23 GLUCOSE (test code = 5021547847) 81 mg/dL 70-110 CREATININE (test code = 2160-0) 0.73 mg/dL 0.50-1.04 TOTAL BILI (test code = 5601644829) 0.5 mg/dL 0.1-1.1 CALCIUM (test code = 5304145064) 9.0 mg/dL 8.6-10.6 T PROTEIN (test code = 2339623231) 7.2 g/dL 6.3-8.2 ALBUMIN (test code = 8205421755) 4.0 g/dL 3.5-5.0 ALK PHOS (test code = 2380809359) 57 U/L 34-122 ALTv (test code = 1742-6) 20 U/L 5-35 AST(SGOT) (test code = 2076793683) 25 U/L 13-40 eGFR (test code = 82543-0) 116.5 mL/min/1.73m2 CKD-EPI eGFR (20 21). Assuming creatinine has been stable day-to-day for at least three months, the eGFR indicates Category G1 (>= 90 mL/min/1.73 m2) [facility]2024-09-03 01:14:07* Test Item Value Reference Range Interpretation Comme nts LIPASE (test code = 8747094989) 95 U/L 0-220 Lab Interpretation (test cod e = 68848-0) Normal [facility] HospitalCbc with [id number] 00:54:06* Test Item Value Reference Range Interpretation [...] 32.0 g/dL 31.6-35.1 RDW-SD (test code = 40684-4) 44.5 fL 39.0-49.9 RDW-CV (test code = 788-0) 13.2 % 12.0-15.5 PLT (test code = 777-3) 268 166-358 MPV (test code = 12969-8) 11.3 fL 9.5-12.9 NRBC/100 WBC (test code = 9099201192) 0.0 0.0-10.0 NRBC x10^3 (test code = 5338463640) See_Comment [Automated me ssage] The system which generated this result transmitted reference range: 10*3/?L. The reference range was not used to interpret this result as normal/abnormal. GRAN MAT (NEUT) % (test code = 770-8) 68.6 % IMM GRAN % (test code = 8199302825) 0.30 % LYMPH % (test code = 736-9) 23.9 % MONO % (test code = 5905-5) 5.8 % EOS % (test code = 713-8) 1.0 % BASO % (test code = 706-2) 0.4 % GRAN MAT x10^3(ANC) (test code = 2316795821) 6.79 10*3/uL 1.88-7.09 IMM GRAN x10^3 (test code = 3509796240) 0.03 10*3/uL 0.00-0.06 LYMPH x10^3 (test code = 731-0) 2.37 10*3/uL 1.32-3.29 MONO x10^3 (test code = 742-7) 0.57 10*3/uL 0.33-0.92 EOS x10^3 (test code = 711-2) 0.10 10*3/uL 0.03-0.39 BASO x10^3 (test code = 704-7) 0.04 10*3/uL 0.01-0.[address] [facility]PO[facility] [id number] 00:42:00* Test Item Value Reference Range Interpretation Comme nts POCT PREG (test code = 1605) Negative On board controls acceptable with C Line (test code = 3574) Yes POCT PREG LOT # (test code = 3575) [id number] POCT PREG TEST DATE ( test code = 3576) 02/25/2025 Lab Interpretation (test cod e = 02963-4) Normal [facility] MOLECULAR [id number] 23:02:58* Test Item Value Reference Range Interpretation Comme nts POCT Molecular Strep (test c ode = 82150-3) Negative Negative Lab Interpretation (test cod e = 87308-5) Normal [facility] LUMBAR SPINE 3 [id number] 04:54:48 Ordering physician: MAMI SHABAZZ Indication: Low back pain, fall COMPARISON: None FINDINGS: 2 views of the lumbar spine. No acute fracture or dislocation isappreciated. The lumbar spine is in normal anatomic alignment. There is noradiographic evidence for significant degenerative disease.[facility] [id number] 03:01:00* Test Item Value Reference Range Interpretation Comme nts POCT PREG (test code = 1605) Negative On board controls acceptable with C Line (test code = 3574) Yes POCT PREG LOT # (test code = 3575) 480014 POCT PREG TEST DATE ( test code = 3576) 02/19/2025 Lab Interpretation (test cod e = 91290-4) Normal [facility] HospitalCULTURE, [id number] 00:00:00* Test Item Value Reference Range Interpretation Comme nts CULTURE, URINE (test code = 97292) SPECIMEN NUMBER: [id number] Garrett SanCULTURE, [id number] 00:00:00* Test Item Value Reference Range Interpretation Comme nts CULTURE, URINE (test code = 00685) SPECIMEN NUMBER: [id number] Garrett Palomino AustinCULTURE, [id number] 00:00:00* Test Item Value Reference Range Interpretation Comme nts CULTURE, URINE (test code = 13330) SPECIMEN NUMBER: [id number] Garrett Palomino [facility] [id number] 00:45:00* Test Item Value Reference Range Interpretation Comme nts POCT PREG (test code = 1605) Negative On board controls acceptable with C Line (test code = 3574) Yes POCT PREG LOT # (test code = 3575) [id number] POCT PREG TEST DATE ( test code = 3576) 11/23/2024 Lab Interpretation (test cod e = 81690-5) Normal [facility]PO[facility] MOLECULAR [id number] 02:20:45* Test Item Value Reference Range Interpretation Comme nts POCT Molecular Strep (test c ode = 50900-6) Negative Negative Lab Interpretation (test cod e = 79838-4) Normal [facility] HospitalThyroid Stimulating [id number] 18:02:50 * Test Item Value Reference Range Interpretation Comme nts TSH (test code = 9815983245) 1.90 See_Comment [Automated Flextripa ge] The system which generated this result transmitted reference range: 0.45 - 4.70 mIU/L. The reference range was not used to interpret this result as normal/abnormal. Lab Interpretation (test code = 15091-1) Normal [facility] HospitalXR CHEST 1 [id number] 17:58:00EXAM:XR CHEST 1 VW HISTORY: 23 years-old Female; Indication for study: chest pain COMPARISON: Chestradiograph dated 07/22/2023 TECHNIQUE: Frontal chest radiograph was obtained. FINDINGS: Lungs/Pleura: Adequate lung volume. The lungs are clear with no focalconsolidation. There is no pleural effusionor pneumothorax. Heart/Mediastinum: The cardiomediastinal silhouette is normal. ? Bones and soft tissues: No acute abnormality detected.[facility] TROPONIN [id number] 17:44:10* Test Item Value Reference Range Interpretation Comme nts TROPONIN I (test code = 3228600456) 0.003 ng/mL <=0.034 ANIBAL (test code = [...] of biotin. Lab Interpretation (test code = 58280-6) Normal [facility] HospitalPREGNANCY TEST, [id number] 17:38:33* Test Item Value Reference Range Interpretation Comme nts PREG SERUM (test code = 9132209982) Negative ANIBAL (test code = ANIBAL) Less than 10 IU/L. ?If low titer or ectopic is suspected, resubmit specimen in 48-72 hours. [facility]. METABOLIC PANEL (95835)2023-10-18 17:32:31* Test Item Value Reference Range Interpretation Comme nts NA (test code = 9042261789) 139 mmol/L 135-145 K (test code = 1821221446) 3.5 mmol/L 3.5-5.0 CL (test code = 1928554986) 105 mmol/L 98-108 CO2 TOTAL (test code = 5156900926) 28 mmol/L 23-31 AGAP (test code = 5778594546) 6 2-16 BUN (test code = 6789205463) 14 mg/dL 7-23 GLUCOSE (test code = 6555033435) 98 mg/dL 70-110 CREATININE (test code = 6838708629) 0.82 mg/dL 0.50-1.04 TOTAL BILI (test code = 8448532287) 0.5 mg/dL 0.1-1.1 CALCIUM (test code = 0839974520) 9.1 mg/dL 8.6-10.6 T PROTEIN (test code = 6357027799) 7.2 g/dL 6.3-8.2 ALBUMIN (test code = 4026116449) 4.0 g/dL 3.5-5.0 ALK PHOS (test code = 6113294791) 73 U/L 34-122 ALTv (test code = 1742-6) 16 U/L 5-35 AST(SGOT) (test code = 4745344948) 21 U/L 13-40 eGFR (test code = 62572-6) 101.9 mL/min/1.73m2 CKD-EPI eGFR (20 21). Assuming creatinine has been stable day-to-day for at least three months, the eGFR indicates Category G1 (>= 90 mL/min/1.73 m2) [facility] HospitalLIPASE2023-12-31 17:32:31* Test Item Value Reference Range Interpretation Comme nts LIPASE (test code = 8307825066) 96 U/L 0-220 Lab Interpretation (test cod e = 35405-2) Normal [facility] HospitalMagnesium2023-12-31 17:32:31* Test Item Value Reference Range Interpretation Comme nts MAGNESIUM (test code = 5049323564) 1.9 mg/dL 1.7-2.4 Lab Interpretation (test cod e = 23864-2) Normal [facility] HospitalCreatine [id number] 17:32:10* Test Item Value Reference Range Interpretation Comme nts CK (test code = 6683555380) 39 U/L 33-194 Lab Interpretation (test cod e = 97442-1) Normal [facility] HospitalCBC WITH [id number] 17:20:30* Test Item Value Reference Range Interpretation Comme nts WBC (test code = 6690-2) 7.13 See_Comment [Automated messa ge] The system which generated this result transmitted reference range: 4.30 - 11.10 10*3/?L. The reference range was not used to interpret this result as normal/abnormal. RBC (test code = 789-8) 4.31 See_Comment [Automated Flextripa ge] The system which generated this result [...] 32.7 g/dL 31.6-35.1 RDW-SD (test code = 29917-6) 44.3 fL 39.0-49.9 RDW-CV (test code = 788-0) 13.4 % 12.0-15.5 PLT (test code = 777-3) 269 See_Comment [Automated messa ge] The system which generated this result transmitted reference range: 166 - 358 10*3/?L. The reference range was not used to interpret this result as normal/abnormal. MPV (test code = 30066-2) 11.0 fL 9.5-12.9 NRBC/100 WBC (test code = 6775093555) 0.0 See_Comment [Automated me ssage] The system which generated this result transmitted reference range: 0.0 - 10.0 /100 WBCs. The reference range was not used to interpret this result as normal/abnormal. NRBC x10^3 (test code = 5960058963) See_Comment [Automated messa ge] The system which generated this result transmitted reference range: 10*3/?L. The reference range was not used to interpret this result as normal/abnormal. GRAN MAT (NEUT) % (test code = 770-8) 68.3 % IMM GRAN % (test code = 7789654572) 0.10 % LYMPH % (test code = 736-9) 25.8 % MONO % (test code = 5905-5) 4.5 % EOS % (test code = 713-8) 0.7 % BASO % (test code = 706-2) 0.6 % GRAN MAT x10^3(ANC) (test code = 5619703752) 4.87 10*3/uL 1.88-7.09 IMM GRAN x10^3 (test code = 5877022465) 0.00-0.06 LYMPH x10^3 (test code = 731-0) 1.84 10*3/uL 1.32-3.29 MONO x10^3 (test code = 742-7) 0.32 10*3/uL 0.33-0.92 L EOS x10^3 (test code = 711-2) 0.05 10*3/uL 0.03-0.39 BASO x10^3 (test code = 704-7) 0.04 10*3/uL 0.01-0.07 Lab Interpretation (test code = 87613-8) Abnormal [facility] MOLECULAR [id number] 17:00:50* Test Item Value Reference Range Interpretation Comme nts POCT Molecular FluA (test co de = 38163-4) Negative Negative POCT Molecular FluB (test co de = 72634-8) Negative Negative Lab Interpretation (test cod e = 79306-2) Normal [facility] SARS-COV-2 ANTIGEN (BINAX NOW)2023-09-25 16:59:00* Test Item Value Reference Range Interpretation Comme nts POCT SARS-COV-2 ANTIGEN (domenico t code = 44991-1) Not Detected Not Detected On board controls acceptable with C Line (test code = 3574) Yes Lab Interpretation (test cod e = 66449-0) Normal [facility] MOLECULAR [id number] 16:50:44* Test Item Value Reference Range Interpretation Comme nts POCT Molecular Strep (test c ode = 03622-7) Positive Negative A Lab Interpretation (test cod e = 55339-3) Abnormal [facility] MOLECULAR [id number] 00:32:05* Test Item Value Reference Range Interpretation Comme nts POCT Molecular Strep (test c ode = 14549-8) Negative Negative Lab Interpretation (test cod e = 34747-8) Normal [facility] SARS-COV-2 ANTIGEN (BINAX NOW)2023-07-22 00:31:00* Test Item Value Reference Range Interpretation Comme nts POCT SARS-COV-2 ANTIGEN (domenico t code = 55700-3) Not Detected Not Detected On board controls acceptable with C Line (test code = 3574) Yes Lab Interpretation (test cod e = 51454-9) Normal [facility] [id number] 20:25:38* Test Item Value Reference Range Interpretation Comme nts FREE T4 (test code = 2264989207) 0.95 See_Comment [Automated messa ge] The system which generated this result transmitted reference range: 0.78 - 2.20 ng/dL:. The reference range was not used to interpret this result as normal/abnormal. Lab Interpretation (test code = 86735-5) [facility] [id number] 20:20:01* Test Item Value Reference Range Interpretation Comme nts TROPONIN I (test code = 9054751264) 0.001 ng/mL <=0.034 ANIBAL (test code = [...] of biotin. Lab Interpretation (test code = 86370-8) Normal [facility] HospitalN-TERMINAL [id number] 20:17:38* Test Item Value Reference Range Interpretation Comme nts NT-proBNP (test code = 46502-4) 32 pg/mL <=125 Lab Interpretation (test cod e = 94722-1) Normal [facility] HospitalCOMP. METABOLIC PANEL (91526)2023-05-01 20:08:18* Test Item Value Reference Range Interpretation Comme nts NA (test code = 1365234779) 139 mmol/L 135-145 K (test code = 7630236611) 3.8 mmol/L 3.5-5.0 CL (test code = 8088104591) 102 mmol/L 98-108 CO2 TOTAL (test code = 7719856291) 28 mmol/L 23-31 AGAP (test code = 8046510586) 9 2-16 BUN (test code = 0932872666) 10 mg/dL 7-23 GLUCOSE (test code = 2005564915) 81 mg/dL 70-110 CREATININE (test code = 8421889361) 0.59 mg/dL 0.50-1.04 TOTAL BILI (test code = 7206263755) 0.5 mg/dL 0.1-1.1 CALCIUM (test code = 0559646940) 9.1 mg/dL 8.6-10.6 T PROTEIN (test code = 3126818414) 6.9 g/dL 6.3-8.2 ALBUMIN (test code = 6493801011) 4.1 g/dL 3.5-5.0 ALK PHOS (test code = 8276286037) 56 U/L 34-122 ALTv (test code = 1742-6) 16 U/L 5-35 AST(SGOT) (test code = 4768714959) 23 U/L 13-40 eGFR (test code = 9639879664) 125.2 mL/min/1.73m2 ANIBAL (test code = ANIBAL) [...] imaging tests). [facility] HospitalACTIVATED PARTIAL THRMPLAS [id number] 20:06:35* Test Item Value Reference Range Interpretation Comme nts APTT Patient (test code = 3173-2) 30 See_Comment [Automated message] The system which generated this result transmitted reference range: 23 - 38 Seconds. The reference range was not used to interpret this result as normal/abnormal. ANIBAL (test code = ANIBAL) The [facility] patient population mean normal value for aPTT is 30 seconds. Lab Interpretation (test code = 43358-9) Normal [facility] HospitalPROTHROMBIN TIME / [id number] 20:04:15* Test Item Value Reference Range Interpretation Comme nts PROTIME PATIENT (test code = 5964-2) 13.9 See_Comment [Automated messa ge] The system which generated this result transmitted reference range: 12.0 - 14.7 Seconds. The reference range was not used to interpret this result as normal/abnormal. INR (test code = 6301-6) 1.1 Normal INR <1.1; Warfarin Therapeutic range 2.0 to 3.0 or 2.5 to 3.5, depending upon the indications. Lab Interpretation (test code = 40206-1) Normal [facility] HospitalCBC WITH [id number] 19:56:58* Test Item Value Reference Range Interpretation Comme nts WBC (test code = 6690-2) 7.45 See_Comment [Automated messa ge] The system which generated this result transmitted reference range: 4.30 - 11.10 10*3/?L. The reference range was not used to interpret this result as normal/abnormal. RBC (test code = 789-8) 4.37 See_Comment [Automated messa ge] The system which [...] 32.7 g/dL 31.6-35.1 RDW-SD (test code = 70854-1) 40.9 fL 39.0-49.9 RDW-CV (test code = 788-0) 13.1 % 12.0-15.5 PLT (test code = 777-3) 271 See_Comment [Automated messa ge] The system which generated this result transmitted reference range: 166 - 358 10*3/?L. The reference range was not used to interpret this result as normal/abnormal. MPV (test code = 27411-8) 11.1 fL 9.5-12.9 NRBC/100 WBC (test code = 0273812279) 0.0 See_Comment [Automated me ssage] The system which generated this result transmitted reference range: 0.0 - 10.0 /100 WBCs. The reference range was not used to interpret this result as normal/abnormal. NRBC x10^3 (test code = 7371914646) See_Comment [Automated me ssage] The system which generated this result transmitted reference range: 10*3/?L. The reference range was not used to interpret this result as normal/abnormal. GRAN MAT (NEUT) % (test code = 770-8) 55.6 % IMM GRAN % (test code = 0317896394) 0.00 % LYMPH % (test code = 736-9) 38.1 % MONO % (test code = 5905-5) 4.8 % EOS % (test code = 713-8) 1.1 % BASO % (test code = 706-2) 0.4 % GRAN MAT x10^3(ANC) (test code = 5251984214) 4.14 10*3/uL 1.88-7.09 IMM GRAN x10^3 (test code = 0115983273) 0.00-0.06 LYMPH x10^3 (test code = 731-0) 2.84 10*3/uL 1.32-3.29 MONO x10^3 (test code = 742-7) 0.36 10*3/uL 0.33-0.92 EOS x10^3 (test code = 711-2) 0.08 10*3/uL 0.03-0.39 BASO x10^3 (test code = 704-7) 0.03 10*3/uL 0.01-0.[address] [facility] HospitalPOCT [id number] 19:25:00* Test Item Value Reference Range Interpretation Comme nts POCT PREG (test code = 1605) Negative On board controls acceptable with C Line (test code = 3574) Yes POCT PREG LOT # (test code = 3576) [id number] POCT PREG TEST DATE ( test code = 3576) 07/24/2024 Lab Interpretation (test cod e = 22134-9) Normal [facility] TEST, THINPREP, [id number] 17:57:05 * Test Item Value Reference Range Interpretation Comme nts SOURCE: (test code = 8001) Cervical/Vagin al SLIDES: (test code = 8011) 2 LMP: (test code = 8021) 01/03/2023 SPECIMEN ADEQUACY: (test code = 92468) (NOTE) Satisfactory for evaluation. Endocervical cells/transformation zone component present. INTERPRETATION: (test code = 08862) NILM/NO EPITH. ABNORMALITY;SE E BELOW ---- NEGATIVE FOR INTRAEPITHELIAL LESION OR MALIGNANCY (NILM) - OTHER COMMENTS: (test code = 8081) (NOTE) Interpreted usin g an alternate method of processing. This testwas developed and its performance characteristics determined by[facility] It has not been cleared orapproved by the FDA. The laboratory is regulated under CLIA asqualified to perform high-complexity testing. This test is usedfor clinical purposes. It should not be regarded asinvestigational or for research. OBSTETRICS GYN : (test code = 8101) ABDIAS Laughlin (ASCP) QC TECHNOLOGIST: (test code = 8111) LATOYA Mcintosh( CP),[facility] LOCATION: (test code = 38304) (NOTE) Specimens proces sed and interpreted at [facility], [address] [address], , CLIA: [id number] CPT: (test code = 8140) (NOTE) [address]46[address] UNLESS OTH ERWISE INDICATED, COMPUTER AIDED AND OBSTETRICS GYN SCREENING PERFORMED. The Pap test is a screening test with an inherent, but low probability of error. Your patient should be reminded to consult you immediately if she experiences any suspicious signs or symptoms, regardless of her Pap test result. An alternate report format containing images or consolidated prior Pap history is available as applicable. HPV HIGH IF ABNORMAL [id number] 17:57:05* Test Item Value Reference Range Interpretation Comme nts HPV HIGH IF ABNORMAL THINPREP (test code = 02572) CRITERIA NOT MET [facility] has imp ortant pathology staff changes effective 12/17/2022. New pathology staff will provide uninterrupted, excellent patient care and clinical consultation. See URL: [email or web address]. UNLESS OTHERWISE INDICATED, ALL TESTING PERFORMED AT [facility] [address] [place] [address] LEHR CUTTER: HOLLIE FRANCIS M.D. CLIA NUMBER [id number] [facility] [place] [id number] CULTURE, [id number] 13:22:41SPECIMEN NUMBER: [id number] CULTURE, URINE SPECIMEN NUMBER: [id number] SPECIMEN COMMENT: URINE SOURCE: URINE REPORT STATUS: FINAL FINAL REPORT: 02/11/2023 10-50,000 CFU/ML UROGENITAL YESSI PRESENT NO CO MMON PATHOGENSPAP TEST, THINPREP, [id number] 00:00:00* Test Item Value Reference Range Interpretation Comme nts SOURCE: (test code = 8001) Cervical/Vaginal SLIDES: (test code = 8011) 2 LMP: (test code = 8021) 01/03/2023 SPECIMEN ADEQUACY: (test code = 90051) (NOTE) INTERPRETATION: (test code = 07249) NILM/NO EPITH. ABNORMALITY;SEE BELOW OTHER COMMENTS: (test code = 8081) (NOTE) OBSTETRICS GYN: (test code = 8101) ABDIAS Laughlin (ASCP) QC TECHNOLOGIST: (test code = 8111) LATOYA Mcintosh(ASCP),[facility] LOCATION: (test code = 32212) (NOTE) CPT: (test code = 8140) (NOTE) Garrett Palomino AustinHPV HIGH IF ABNORMAL [id number] 00:00:00* Test Item Value Reference Range Interpretation Comme nts HPV HIGH IF ABNORMAL THINPREP (test code = 83169) CRITERIA NOT MET Garrett SanCULTURE, [id number] 00:00:00* Test Item Value Reference Range Interpretation Comme nts CULTURE, URINE (test code = 59233) SPECIMEN NUMBER: [id number] Garrett SanPAP TEST, THINPREP, [id number] 00:00:00* Test Item Value Reference Range Interpretation Comme nts SOURCE: (test code = 8001) Cervical/Vaginal SLIDES: (test code = 8011) 2 LMP: (test code = 8021) 01/03/2023 SPECIMEN ADEQUACY: (test code = 06245) (NOTE) INTERPRETATION: (test code = 42278) NILM/NO EPITH. ABNORMALITY;SEE BELOW OTHER COMMENTS: (test code = 8081) (NOTE) OBSTETRICS GYN: (test code = 8101) ABDIAS Laughlin (ASCP) QC TECHNOLOGIST: (test code = 8111) Tom SandovalSCT(ASCP),IAC LOCATION: (test code = 32880) (NOTE) CPT: (test code = 8140) (NOTE) Garrett Palomino AustinHPV HIGH IF ABNORMAL [id number] 00:00:00* Test Item Value Reference Range Interpretation Comme nts HPV HIGH IF ABNORMAL THINPREP (test code = 31205) CRITERIA NOT MET Garrett ArizmendiLTURE, [id number] 00:00:00* Test Item Value Reference Range Interpretation Comme nts CULTURE, URINE (test code = 94302) SPECIMEN NUMBER: [id number] Garrett SanPAP TEST, THINPREP, [id number] 00:00:00* Test Item Value Reference Range Interpretation Comme nts SOURCE: (test code = 800) Cervical/Vaginal SLIDES: (test code = 8011) 2 LMP: (test code = 8021) 01/03/2023 SPECIMEN ADEQUACY: (test code = 50605) (NOTE) INTERPRETATION: (test code = 72122) NILM/NO EPITH. ABNORMALITY;SEE BELOW OTHER COMMENTS: (test code = 8081) (NOTE) OBSTETRICS GYN: (test code = 8101) ABDIAS Laughlin (ASCP) QC TECHNOLOGIST: (test code = 8111) LATOYA Mcintosh(ASCP),[facility] LOCATION: (test code = 71755) (NOTE) CPT: (test code = 8140) (NOTE) Garrett SanCULTURE, [id number] 00:00:00* Test Item Value Reference Range Interpretation Comme nts CULTURE, URINE (test code = 73600) SPECIMEN NUMBER: [id number] Garrett SanHPV HIGH IF ABNORMAL [id number] 00:00:00* Test Item Value Reference Range Interpretation Comme nts HPV HIGH IF ABNORMAL THINPREP (test code = 70587) CRITERIA NOT MET Garrett SanVAGINAL PATHOGENS DNA [id number] 16:21:49* Test Item Value Reference Range Interpretation Comme nts JOVANY SPECIES (test code = ) NEGATIVE NEGATIVE G. VAGINALIS (test code = 15471) NEGATIVE NEGATIVE T. VAGINALIS (test code = 00100) NEGATIVE NEGATIVE Note: The [facility] VPIII Microbial Identification Testis a DNA probe test intended for use in the detectionand identification of Jovany species, Gardnerellavaginalis and Trichomonas vaginalis nucleic acid. [facility] has important pathology staff changes effective 12/17/2022. New pathology staff will provide uninterrupted, excellent patient care and clinical consultation. See URL: [email or web address]. UNLESS OTHERWISE INDICATED, ALL TESTING PERFORMED AT [facility] [address] [place] [id number] LEHR CUTTER: HOLLIE FRANCIS M.D. CLIA NUMBER [id number] [place] [facility] [place] [id number] VAGINAL PATHOGENS DNA [id number] 00:00:00* Test Item Value Reference Range Interpretation Comme nts JOVANY SPECIES (test code = ) NEGATIVE G. VAGINALIS (test code = 83236) NEGATIVE T. VAGINALIS (test code = 62319) NEGATIVE Garrett Palomino AustinVAGINAL PATHOGENS DNA [id number] 00:00:00* Test Item Value Reference Range Interpretation Comme nts JOVANY SPECIES (test code = 19422) NEGATIVE G. VAGINALIS (test code = 54344) NEGATIVE T. VAGINALIS (test code = 36221) NEGATIVE Garrett Palomino AustinVAGINAL PATHOGENS DNA [id number] 00:00:00* Test Item Value Reference Range Interpretation Comme nts JOVANY SPECIES (test code = 04843) NEGATIVE G. VAGINALIS (test code = 04333) NEGATIVE T. VAGINALIS (test code = 21862) NEGATIVE Garrett SanPOCT [id number] 12:38:00* Test Item Value Reference Range Interpretation Comme nts POCT PREG (test code = 1605) negative On board controls acceptable with C Line (test code = 3574) present POCT PREG LOT # (test code = 3575) [id number] POCT PREG TEST DATE ( test code = 3576) [id number] Lab Interpretation (test cod e = 98521-7) Normal [facility], [id number] 12:51:58SPECIMEN NUMBER: [id number] CULTURE, URINE SPECIMEN NUMBER: [id number] SPECIMEN COMMENT: URINE SOURCE: URINE REPORT STATUS: FINAL FINAL REPORT: 01/11/2023 >100,000 CFU/ML UROGENITAL YESSI PRESENT NOCOMMON PATHOGENSCULTURE, [id number] 00:00:00* Test Item Value Reference Range Interpretation Comme nts CULTURE, URINE (test code = 27874) SPECIMEN NUMBER: [id number] Garrett SanCULTURE, [id number] 00:00:00* Test Item Value Reference Range Interpretation Comme nts CULTURE, URINE (test code = 07721) SPECIMEN NUMBER: [id number] Garrett SanCULTURE, [id number] 00:00:00* Test Item Value Reference Range Interpretation Comme nts CULTURE, URINE (test code = 94316) SPECIMEN NUMBER: [id number] Garrett Palomino AustinVAGINAL PATHOGENS DNA [id number] 15:44:49* Test Item Value Reference Range Interpretation Comme nts JOVANY SPECIES (test code = ) NEGATIVE NEGATIVE G. VAGINALIS (test code = 49042) NEGATIVE NEGATIVE T. VAGINALIS (test code = 74997) NEGATIVE NEGATIVE Note: The [facility] VPIII Microbial Identification Testis a DNA probe test intended for use in the detectionand identification of Jovany species, Gardnerellavaginalis and Trichomonas vaginalis nucleic acid. [facility] has important pathology staff changes effective 12/17/2022. New pathology staff will provide uninterrupted, excellent patient care and clinical consultation. See URL: [email or web address]. UNLESS OTHERWISE INDICATED, ALL TESTING PERFORMED AT [facility] [address] [place] [address] LEHR CUTTER: Pily MACIAS NUMBER [id number] [facility] [place]. [id number] VAGINAL PATHOGENS DNA [id number] 00:00:00* Test Item Value Reference Range Interpretation Comme nts JOVANY SPECIES (test code = ) NEGATIVE G. VAGINALIS (test code = 25277) NEGATIVE T. VAGINALIS (test code = 52476) NEGATIVE Garrtet F AustinVAGINAL PATHOGENS DNA [id number] 00:00:00* Test Item Value Reference Range Interpretation Comme nts JOVANY SPECIES (test code = 46930) NEGATIVE G. VAGINALIS (test code = 35238) NEGATIVE T. VAGINALIS (test code = 68274) NEGATIVE Garrett F AustinVAGINAL PATHOGENS DNA [id number] 00:00:00* Test Item Value Reference Range Interpretation Comme nts JOVANY SPECIES (test code = 82168) NEGATIVE G. VAGINALIS (test code = 15765) NEGATIVE T. VAGINALIS (test code = 71374) NEGATIVE Garrett F AustinTHYROID II PROFILE (TU,T4,FTI,TSH)2022-11-20 04:41:48* Test Item Value Reference Range Interpretation Comme nts T-UPTAKE (test code = 2817) 27.2 % 24.3-39.0 THYROX. BIND. CAPAC. (test code = 12010) 1.2 0.8-1.3 T4 (THYROXINE) (test code = 2819) 6.8 UG/DL 4.5-10.5 CORRECTED T4 (FTI) (test code = 2820) 5.7 UG/DL 4.2-11.6 TSH, THIRD GENERATION (test code = 2821) 0.839 UIU/ML 0.400-4.100 UNLESS OTHERWISE INDICATED, ALL TESTING PERFORMED [facility] [address] [place] [address] LEHR CUTTER: Pily LOPEZ NUMBER [id number] [facility] [place]. [id number] COMPREHENSIVE METABOLIC [id number] 03:07:49* Test Item Value Reference Range Interpretation Comme nts GLUCOSE (test code = 2216) 81 MG/DL 70-99 BUN (test code = 2207) 14 MG/DL 6-20 CREATININE (test code = 2213) 0.81 MG/DL 0.60-1.30 eGFR (2020 CKD-EPI) (test code = ) 104 ML/MIN/1.73 >60 CALC BUN/CREAT (test code = 2234) 17 RATIO 6-28 SODIUM (test code = [...] 98 U/L 40-115 AST (test code = 8) 17 U/L 9-40 ALT (test code = 9) 13 U/L 5-40 HEMOGLOBIN [id number] 01:43:57* Test Item Value Reference Range Interpretation Comme nts HEMOGLOBIN A1c (test code = 29636) 5.3 % 4.2-5.6 CBC W/AUTO DIFF WITH [id number] 01:08:39* Test Item Value Reference Range Interpretation [...] 0.00-0.10 ABS NUCLEATED RBCS (test code = 49124) 0.00 K/UL 0.00-0.11 COMPREHENSIVE METABOLIC PANEL [ADDED]2022-11-20 00:00:00* Test Item Value Reference Range Interpretation Comme nts GLUCOSE (test code = 2217) 81 MG/DL BUN (test code = 2208) 14 MG/DL CREATININE (test code = 2214) 0.81 MG/DL eGFR (2020 CKD-EPI) (test code = 61359) 104 ML/MIN/1.73 CALC BUN/CREAT (test code = 2235) 17 RATIO SODIUM (test code = 223) 141 MEQ/L POTASSIUM (test code = 2228) 4.2 MEQ/L CHLORIDE (test code = 2215) 103 MEQ/L CARBON DIOXIDE (test code = 2206) 23 MEQ/L CALCIUM (test code = 2209) 9.2 MG/DL PROTEIN, TOTAL (test code = 222) 7.1 G/DL ALBUMIN (test code = 220) 4.6 G/DL CALC GLOBULIN (test code = 2240) 2.5 G/DL CALC A/G RATIO (test code = 2233) 1.8 RATIO BILIRUBIN, TOTAL (test code = 2206) 0.2 MG/DL ALKALINE PHOSPHATASE (test code = 2203) 98 U/L AST (test code = 2217) 17 U/L ALT (test code = 2218) 13 U/L Garrett SanHEMOGLOBIN A1c [ADDED]2022-11-20 00:00:00* Test Item Value Reference Range Interpretation Comme nts HEMOGLOBIN A1c (test code = 72882) 5.3 % Garrett SanTHYROID II PROFILE (TU,T4,FTI,TSH) [ADDED]2022-11-20 00:00:00* Test Item Value Reference Range Interpretation Comme nts T-UPTAKE (test code = 2817) 27.2 % THYROX. BIND. CAPAC. (test c ode = 23047) 1.2 T4 (THYROXINE) (test code = 2819) [...] ABS NUCLEATED RBCS (test cod e = 74719) 0.00 K/UL Garrett SanCOMPREHENSIVE METABOLIC PANEL [ADDED]2022-11-20 00:00:00* Test Item Value Reference Range Interpretation Comme nts GLUCOSE (test code = 2217) 81 MG/DL BUN (test code = 2208) 14 MG/DL CREATININE (test code = 2214) 0.81 MG/DL eGFR (2020 CKD-EPI) (test code = 62237) 104 ML/MIN/1.73 CALC BUN/CREAT (test code = [...] Comme nts HEMOGLOBIN A1c (test code = 62670) 5.3 % Garrett SanTHYROID II PROFILE (TU,T4,FTI,TSH) [ADDED]2022-11-20 00:00:00* Test Item Value Reference Range Interpretation Comme nts T-UPTAKE (test code = 2817) 27.2 % THYROX. BIND. CAPAC. (test c ode = 88010) 1.2 T4 (THYROXINE) (test code = 2819) [...] ABS NUCLEATED RBCS (test cod e = 25152) 0.00 K/UL Garrett SanCOMPREHENSIVE METABOLIC PANEL [ADDED]2022-11-20 00:00:00* Test Item Value Reference Range Interpretation Comme nts GLUCOSE (test code = 2217) 81 MG/DL BUN (test code = 2208) 14 MG/DL CREATININE (test code = 2214) 0.81 MG/DL eGFR (2020 CKD-EPI) (test code = 81124) 104 ML/MIN/1.73 CALC BUN/CREAT (test code = [...] Comme nts HEMOGLOBIN A1c (test code = 25778) 5.3 % Garrett SanTHYROID II PROFILE (TU,T4,FTI,TSH) [ADDED]2022-11-20 00:00:00* Test Item Value Reference Range Interpretation Comme nts T-UPTAKE (test code = 2817) 27.2 % THYROX. BIND. CAPAC. (test c ode = 21762) 1.2 T4 (THYROXINE) (test code = 2819) [...] ABS NUCLEATED RBCS (test cod e = 84843) 0.00 K/UL Garrett SanTHYROID STIMULATING [id number] 07:10:46* Test Item Value Reference Range Interpretation Comme nts TSH (test code = 0660829265) See_Comment L [Automated messa ge] The system which generated this result transmitted reference range: 0.45 - 4.70 mIU/L. The reference range was not used to interpret this result as normal/abnormal. Lab Interpretation (test code = 42649-6) [facility]normal [facility] [id number] 06:57:08* Test Item Value Reference Range Interpretation Comme nts FREE T4 (test code = 2252162652) See_Comment [Automated Flextripa ge] The system which generated this result transmitted reference range: 0.78 - 2.20 ng/dL:. The reference range was not used to interpret this result as normal/abnormal. Lab Interpretation (test code = 69720-2) Normal [facility] HospitalTROPONIN [id number] 06:52:03* Test Item Value Reference Range Interpretation Comments TROPONIN I (test code = 1632305725) 0.001 ng/mL See_Comment [Automated message] The system [...] of biotin. Lab Interpretation (test code = 09066-4) Normal [facility] HospitalCOM. METABOLIC PANEL (71396)2022-10-08 06:40:20* Test Item Value Reference Range Interpretation Comme nts NA (test code = 2813736875) 137 mmol/L 135-145 K (test code = 6267149679) 3.6 mmol/L 3.5-5.0 CL (test code = 3569620395) 102 mmol/L 98-108 CO2 TOTAL (test code = 2060747314) 28 mmol/L 23-31 AGAP (test code = 5152960819) 2-16 BUN (test code = 3644250439) 12 mg/dL 7-23 GLUCOSE (test code = 5699019748) 94 mg/dL 70-110 CREATININE (test code = 6675719435) 0.71 mg/dL 0.50-1.04 TOTAL BILI (test code = 3985943671) 0.3 mg/dL 0.1-1.1 CALCIUM (test code = 6702119500) 8.6 mg/dL 8.6-10.6 T PROTEIN (test code = 4708883214) 6.9 g/dL 6.3-8.2 ALBUMIN (test code = 3562396173) 4.3 g/dL 3.5-5.0 ALK PHOS (test code = 0755118662) 85 U/L 34-122 ALTv (test code = 1742-6) 19 U/L 5-35 AST(SGOT) (test code = 2757329905) 20 U/L 13-40 eGFR (test code = 5123307460) mL/min/1.73m2 ANIBAL (test code = ANIBAL) Association [...] imaging tests). [facility] HospitalLIPASE2022-12-21 06:39:40* Test Item Value Reference Range Interpretation Comme nts LIPASE (test code = 4632792902) 157 U/L 0-220 Lab Interpretation (test cod e = 62828-6) Normal [facility] HospitalPOCT [id number] 06:35:00* Test Item Value Reference Range Interpretation Comme nts POCT PREG (test code = 1605) negative On board controls acceptable with C Line (test code = 3574) present POCT PREG LOT # (test code = 3575) [id number] POCT PREG TEST DATE ( test code = 3576) 01/17/2024 Lab Interpretation (test cod e = 54172-9) Normal [facility] HospitalCB WITH [id number] 06:27:44* Test Item Value Reference Range Interpretation Comme nts WBC (test code = 6690-2) See_Comment [Automated Flextripa ge] The system which generated this result transmitted reference range: 4.30 - 11.10 10*3/?L. The reference range was not used to interpret this result as normal/abnormal. RBC (test code = 789-8) See_Comment [Automated Flextripa ge] The system which generated this result [...] 32.6 g/dL 31.6-35.1 RDW-SD (test code = 04000-0) 39.1 fL 39.0-49.9 RDW-CV (test code = 788-0) 12.9 % 12.0-15.5 PLT (test code = 777-3) See_Comment [Automated Flextripa ge] The system which generated this result transmitted reference range: 166 - 358 10*3/?L. The reference range was not used to interpret this result as normal/abnormal. MPV (test code = 30338-7) 10.5 fL 9.5-12.9 NRBC/100 WBC (test code = 8112814333) See_Comment [Automated me ssage] The system which generated this result transmitted reference range: 0.0 - 10.0 /100 WBCs. The reference range was not used to interpret this result as normal/abnormal. NRBC x10^3 (test code = 3976514729) See_Comment [Automated me ssage] The system which generated this result transmitted reference range: 10*3/?L. The reference range was not used to interpret this result as normal/abnormal. GRAN MAT (NEUT) % (test code = 770-8) 57.5 % IMM GRAN % (test code = 8754147392) 0.40 % LYMPH % (test code = 736-9) 35.1 % MONO % (test code = 5905-5) 5.0 % EOS % (test code = 713-8) 1.5 % BASO % (test code = 706-2) 0.5 % GRAN MAT x10^3(ANC) (test code = 1888148033) 4.92 10*3/uL 1.88-7.09 IMM GRAN x10^3 (test code = 7592506839) 0.03 10*3/uL 0.00-0.06 LYMPH x10^3 (test code = 731-0) 3.00 10*3/uL 1.32-3.29 MONO x10^3 (test code = 742-7) 0.43 10*3/uL 0.33-0.92 EOS x10^3 (test code = 711-2) 0.13 10*3/uL 0.03-0.39 BASO x10^3 (test code = 704-7) 0.04 10*3/uL 0.01-0.07 [facility] [id number] 17:11:00* Test Item Value Reference Range Interpretation Comme nts POCT PREG (test code = 1605) negative On board controls acceptable with C Line (test code = 3574) present POCT PREG LOT # (test code = 3575) [id number] POCT PREG TEST DATE ( test code = 3576) 12/17/23 Lab Interpretation (test cod e = 67980-2) Normal [facility] TEST, THINPREP, [id number] 14:44:39 * Test Item Value Reference Range Interpretation Comme nts SOURCE: (test code = 8001) Cervical/Vag inal SLIDES: (test code = 8011) 1 LMP: (test code = 8021) 2020 SPECIMEN ADEQUACY: (test code = 60382) (NOTE) Satisfactory for evaluation. Endocervical cells/transformation zone component present. INTERPRETATION: (test code = 60261) LSIL/EPITH. ABNORMALITY; SEE BELOW A -- ---- EPITHELIAL CELL ABNORMALITY Low Grade Squamous Intraepithelial Lesion (LSIL) ---- OTHER COMMENTS: (test code = 8081) (NOTE) Due to technical or specimen issues, imaging could not beperformed. A director decision support has manually screened this slide. OBSTETRICS GYN: (test code = 8101) ABDIAS Ramos(ASCP) PATHOLOGIST INTERPRETATION BY: (test code = 8122) Tony Quigley M.D. LOCATION: (test code = 11946) (NOTE) Specimens proces sed at [facility], [address] [place] [address], , CLIA: [id number] interpreted at [facility], [address] [place] [address], , CLIA:[id number] CPT: (test code = 8140) (NOTE) 41262, 16534, 88 142 UNLESS OTHERWISE INDICATED, COMPUTER AIDED AND OBSTETRICS GYN SCREENING PERFORMED. The Pap test is a screening test with an inherent, but low probability of error. Your patient should be reminded to consult you immediately if she experiences any suspicious signs or symptoms, regardless of her Pap test result. An alternate report format containing images or consolidated prior Pap history is available as applicable. HPV HIGH IF ABNORMAL [id number] 14:44:39* Test Item Value Reference Range Interpretation Comme nts HPV HIGH IF ABNORMAL THINPRE P (test code = 94254) SEE BELOW HPV HIGH RISK WITH GENOTYPE, [id number] 14:40:28* Test Item Value Reference Range Interpretation Comme nts HPV HIGH RISK INTERP (test code = 96704) POSITIVE NEGATIVE A HPV 16 (test code = 06264) NEGATIVE HPV 18 (test code = 19619) NEGATIVE HPV, HR, OTHER GENOTYPES (test code = 48811) POSITIVE A Testing methodol ogy is real-time [...] error. UNLESS OTHERWISE INDICATED, ALL TESTING PERFORMED [facility] [address] [place] [address] LEHR CUTTER: NAHED JACOBSON M.D. [place] NUMBER [id number] [facility] [place]. [id number] HPV HIGH IF ABNORMAL [id number] 00:00:00* Test Item Value Reference Range Interpretation Comme nts HPV HIGH IF ABNORMAL THINPRE P (test code = 70530) SEE BELOW HPV HIGH RISK WITH GENOTYPE, TP [REFLEX]2022-06-25 00:00:00* Test Item Value Reference Range Interpretation Comme nts HPV HIGH RISK INTERP (test c ode = 78455) POSITIVE HPV 16 (test code = 18352) NEGATIVE HPV 18 (test code = 00759) NEGATIVE HPV, HR, OTHER GENOTYPES (te st code = 32186) POSITIVE HPV HIGH RISK WITH GENOTYPE, TP [REFLEX]2022-06-25 00:00:00* Test Item Value Reference Range Interpretation Comme nts HPV HIGH RISK INTERP (test c ode = 50400) POSITIVE HPV 16 (test code = 33536) NEGATIVE HPV 18 (test code = 10179) NEGATIVE HPV, HR, OTHER GENOTYPES (te st code = 49677) POSITIVE Garrett Palomino AustinPAP TEST, THINPREP, [id number] 00:00:00* Test Item Value Reference Range Interpretation Comme nts SOURCE: (test code = 8001) Cervical/Vaginal SLIDES: (test code = 8011) 1 LMP: (test code = 8021) 2020 SPECIMEN ADEQUACY: (test code = 35051) (NOTE) INTERPRETATION: (test code = 99143) LSIL/EPITH. ABNORMALITY; SEE BELOW OTHER COMMENTS: (test code = 8081) (NOTE) OBSTETRICS GYN: (test code = 8101) ABDIAS Ramos(ASCP) PATHOLOGIST INTERPRETATION BY: (test code = 8122) Tony Quigley M.D. LOCATION: (test code = 40856) (NOTE) CPT: (test code = 8140) (NOTE) Garrett Palomino AustinHPV HIGH IF ABNORMAL [id number] 00:00:00* Test Item Value Reference Range Interpretation Comme nts HPV HIGH IF ABNORMAL THINPRE P (test code = 16725) SEE BELOW Garrett Palomino AustinHPV HIGH RISK WITH GENOTYPE, TP [REFLEX]2022-06-25 00:00:00* Test Item Value Reference Range Interpretation Comme nts HPV HIGH RISK INTERP (test c ode = 08256) POSITIVE HPV 16 (test code = 56187) NEGATIVE HPV 18 (test code = 80250) NEGATIVE HPV, HR, OTHER GENOTYPES (te st code = 09173) POSITIVE Garrett Palomino AustinPAP TEST, THINPREP, [id number] 00:00:00* Test Item Value Reference Range Interpretation Comme nts SOURCE: (test code = 8001) Cervical/Vaginal SLIDES: (test code = 8011) 1 LMP: (test code = 8021) 2020 SPECIMEN ADEQUACY: (test code = 66008) (NOTE) INTERPRETATION: (test code = 82125) LSIL/EPITH. ABNORMALITY; SEE BELOW OTHER COMMENTS: (test code = 8081) (NOTE) OBSTETRICS GYN: (test code = 8101) ABDIAS Ramos(ASCP) PATHOLOGIST INTERPRETATION BY: (test code = 8122) Tony Quigley M.D. LOCATION: (test code = 17699) (NOTE) CPT: (test code = 8140) (NOTE) Garrett Palomino AustinHPV HIGH IF ABNORMAL [id number] 00:00:00* Test Item Value Reference Range Interpretation Comme nts HPV HIGH IF ABNORMAL THINPRE P (test code = 32092) SEE BELOW Garrett Palomino AustinHPV HIGH RISK WITH GENOTYPE, TP [REFLEX]2022-06-25 00:00:00* Test Item Value Reference Range Interpretation Comme nts HPV HIGH RISK INTERP (test c ode = 24846) POSITIVE HPV 16 (test code = 33949) NEGATIVE HPV 18 (test code = 03392) NEGATIVE HPV, HR, OTHER GENOTYPES (te st code = 79547) POSITIVE Garrett Palomino AustinPAP TEST, THINPREP, [id number] 00:00:00* Test Item Value Reference Range Interpretation Comme nts SOURCE: (test code = 8001) Cervical/Vaginal SLIDES: (test code = 8011) 1 LMP: (test code = 8021) 2020 SPECIMEN ADEQUACY: (test code = 06911) (NOTE) INTERPRETATION: (test code = 46284) LSIL/EPITH. ABNORMALITY; SEE BELOW OTHER COMMENTS: (test code = 8081) (NOTE) OBSTETRICS GYN: (test code = 8101) ABDIAS Ramos(ASCP) PATHOLOGIST INTERPRETATION BY: (test code = 8122) Tony Quigley M.D. LOCATION: (test code = 18105) (NOTE) CPT: (test code = 8140) (NOTE) Garrett Palomino AustinHPV HIGH IF ABNORMAL [id number] 00:00:00* Test Item Value Reference Range Interpretation Comme nts HPV HIGH IF ABNORMAL THINPRE P (test code = 45484) SEE BELOW Garrett Palomino AustinPAP TEST, THINPREP, [id number] 00:00:00* Test Item Value Reference Range Interpretation Comme nts SOURCE: (test code = 8001) Cervical/Vaginal SLIDES: (test code = 8011) 1 LMP: (test code = 8021) 2020 SPECIMEN ADEQUACY: (test code = 43854) (NOTE) INTERPRETATION: (test code = 32214) LSIL/EPITH. ABNORMALITY; SEE BELOW OTHER COMMENTS: (test code = 8081) (NOTE) OBSTETRICS GYN: (test code = 8101) ABDIAS Ramos(ASCP) PATHOLOGIST INTERPRETATION BY: (test code = 8122) Tony Quigley M.D. LOCATION: (test code = 63045) (NOTE) CPT: (test code = 8140) (NOTE) CT/NG, TMA, [id number] 19:07:10* Test Item Value Reference Range Interpretation Comme nts GONORRHEA, TMA (test code = 99212) NEGATIVE NEGATIVE Assay methodolog y is nucleic acid amplification by dyeing machine tender mediated amplification (TMA) utilizing the Aptima Combo 2 Assay. CHLAMYDIA, TMA (test code = 83251) NEGATIVE NEGATIVE Assay methodolog y is nucleic acid amplification by dyeing machine tender mediated amplification (TMA) utilizing the Aptima Combo 2 Assay. VAGINAL PATHOGENS DNA [id number] 15:43:09* Test Item Value Reference Range Interpretation Comme nts JOVANY SPECIES (test code = 92510) POSITIVE NEGATIVE A G. VAGINALIS (test code = 83812) POSITIVE NEGATIVE A T. VAGINALIS (test code = 01815) NEGATIVE NEGATIVE UNLESS OTHERWISE INDICATED, ALL TESTING PERFORMED [facility] [address] [place] [address] LEHR CUTTER: NAHED JACOBSON M.D. CLIA NUMBER [id number] [facility] [place]. [id number] HIV 1/2 4TH GEN, RFLX [id number] 06:55:46* Test Item Value Reference Range Interpretation Comme nts HIV 1/2 4TH GEN, RFLX CONF ( test code = 3514) NON-REACTIVE NON-REACTIVE [id number] 06:51:55* Test Item Value Reference Range Interpretation Comme nts PROLACTIN (test code = 2800) 17.2 NG/ML 5.0-37.0 NOTE: Methodolog y is [employer] Electrochemiluminescence Immunoassay (ECLIA). Values obtained with different assays/manufacturers cannot be used interchangeably. Results should not be used as sole basis to establish the presence or absence of malignancy. GC AND CHLAMYDIA AMPLIFIED, [id number] 00:00:00* Test Item Value Reference Range Interpretation Comme nts GONORRHEA, TMA (test code = 25074) NEGATIVE CHLAMYDIA, TMA (test code = 02335) NEGATIVE GC AND CHLAMYDIA AMPLIFIED, [id number] 00:00:00* Test Item Value Reference Range Interpretation Comme nts GONORRHEA, TMA (test code = 63458) NEGATIVE CHLAMYDIA, TMA (test code = 02798) NEGATIVE Garrett F AustinGC AND CHLAMYDIA AMPLIFIED, [id number] 00:00:00* Test Item Value Reference Range Interpretation Comme nts GONORRHEA, TMA (test code = 99148) NEGATIVE CHLAMYDIA, TMA (test code = 08828) NEGATIVE Garrett F AustinGC AND CHLAMYDIA AMPLIFIED, [id number] 00:00:00* Test Item Value Reference Range Interpretation Comme nts GONORRHEA, TMA (test code = 35124) NEGATIVE CHLAMYDIA, TMA (test code = 41049) NEGATIVE Garrett F JaswinderFree T4 and TSH panel - Serum or [id number] 00:00:00* Test Item Value Reference Range Interpretation Comme nts Thyrotropin [Units/volume] i n Serum or Plasma by Detection limit <= 0.005 mIU/L (test code = 98093-3) <0.005 0.450-4.500 L Thyroxine (T4) free [Mass/vo lume] in Serum or Plasma (test code = 3024-7) 1.55 NG/dL 0.82-1.77 [facility] W Auto Differential panel - [id number] 00:00:00* Test Item Value Reference Range Interpretation [...] immature cells (test code = immature cells) 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 Immature granulocytes [#/volume] in Blood by Automated count (test code = 75401-3) 0.0 x10e3/uL 0.0-0.1 Nucleated erythrocytes/100 leukocytes [Ratio] in Blood by Automated count (test code = 37005-7) recruiter account manager Morphology [Interpretation] in Blood Narrative (test code = 62471-2) recruiter account manager [facility] metabolic 2000 panel - Serum or [id number] 00:00:00* Test Item Value Reference Range Interpretation [...] Serum or Plasma (test code = 5-0) 103 mmol/L 96-106 Carbon dioxide, total [Moles/volume] in Serum or Plasma (test code = 2027-9) 21 mmol/L 20-29 Calcium [Mass/volume] in Serum or Plasma (test code = 66677-5) 8.9 mg/dL 8.7-10.2 Protein [Mass/volume] in Serum or Plasma (test code = 2885-2) 6.3 g/dL 6.0-8.5 Albumin [Mass/volume] in Serum or Plasma (test code = 1751-7) 4.1 g/dL 3.9-5.0 Globulin [Mass/volume] in Serum by calculation (test code = 60367-4) 2.2 g/dL 1.5-4.5 Albumin/Globulin [Mass Ratio ] [...] [facility] MedicalTriiodothyronine (T3) [Mass/volume] in Serum or [id number] 00:00:00* Test Item Value Reference Range Interpretation Comme nts Triiodothyronine (T3) [Mass/ volume] in Serum or Plasma (test code = 3053-6) 190 NG/dL 71-180 H [facility] MedicalCT/NG, NAAT, [id number] 10:58:33* Test Item Value Reference Range Interpretation Comme nts GONORRHEA, NAAT (test code = 74603) NEGATIVE NEGATIVE IMPORTANT NO ANTONETTE: SEE ANNOUNCEMENT AT [email or web address] Note: Assay methodology is nucleic acid amplification by dyeing machine tender mediated amplification (TMA) utilizing the Aptima Combo 2 Assay. CHLAMYDIA, NAAT (test code = 47716) POSITIVE NEGATIVE A IMPORTANT NO ANTONETTE: SEE ANNOUNCEMENT AT [email or web address] Note: Assay methodology is nucleic acid amplification by dyeing machine tender mediated amplification (TMA) utilizing the Aptima Combo 2 Assay. GC AND CHLAMYDIA, AMPLIFIED, [id number] 00:00:00* Test Item Value Reference Range Interpretation Comme nts GONORRHEA, NAAT (test code = 69775) NEGATIVE CHLAMYDIA, NAAT (test code = 19429) POSITIVE Garrett F AustinGC AND CHLAMYDIA, AMPLIFIED, [id number] 00:00:00* Test Item Value Reference Range Interpretation Comme nts GONORRHEA, NAAT (test code = 46948) NEGATIVE CHLAMYDIA, NAAT (test code = 12352) POSITIVE Garrett F AustinGC AND CHLAMYDIA, AMPLIFIED, [id number] 00:00:00* Test Item Value Reference Range Interpretation Comme nts GONORRHEA, NAAT (test code = 73788) NEGATIVE CHLAMYDIA, NAAT (test code = 96316) POSITIVE Garrett SanGC AND CHLAMYDIA, AMPLIFIED, [id number] 00:00:00* Test Item Value Reference Range Interpretation Comme nts GONORRHEA, NAAT (test code = 08439) NEGATIVE CHLAMYDIA, NAAT (test code = 06045) POSITIVE VAGINAL PATHOGENS DNA [id number] 13:27:01* Test Item Value Reference Range Interpretation Comme nts JOVANY SPECIES (test code = 58471) POSITIVE NEGATIVE A G. VAGINALIS (test code = 15648) NEGATIVE NEGATIVE T. VAGINALIS (test code = 60186) NEGATIVE NEGATIVE UNLESS OTHERWISE INDICATED, ALL TESTING PERFORMED ATCLINICAL PATHOLOGY [employer] [address] [place] [address] LEHR CUTTER: NAHED JACOBSON M.D. CLIA NUMBER [id number] [facility] [place]. [id number] VAGINAL PATHOGENS DNA [id number] 00:00:00* Test Item Value Reference Range Interpretation Comme nts JOVANY SPECIES (test code = 73270) POSITIVE G. VAGINALIS (test code = 44988) NEGATIVE T. VAGINALIS (test code = 89312) NEGATIVE VAGINAL PATHOGENS DNA [id number] 00:00:00* Test Item Value Reference Range Interpretation Comme nts JOVANY SPECIES (test code = 05575) POSITIVE G. VAGINALIS (test code = 62581) NEGATIVE T. VAGINALIS (test code = 24434) NEGATIVE Garrett Palomino AustinVAGINAL PATHOGENS DNA [id number] 00:00:00* Test Item Value Reference Range Interpretation Comme nts JOVANY SPECIES (test code = 36654) POSITIVE G. VAGINALIS (test code = 67974) NEGATIVE T. VAGINALIS (test code = 51414) NEGATIVE Garrett F AustinVAGINAL PATHOGENS DNA [id number] 00:00:00* Test Item Value Reference Range Interpretation Comme nts JOVANY SPECIES (test code = 83893) POSITIVE G. VAGINALIS (test code = 61486) NEGATIVE T. VAGINALIS (test code = 17159) NEGATIVE Garrett Palomino AustinCBC WITH [id number] 06:05:23* Test Item Value Reference Range Interpretation [...] 32.8 g/dL 31.6-35.1 RDW-SD (test code = 12754-3) 44.6 fL 39.0-49.9 RDW-CV (test code = 788-0) 14.8 % 12.0-15.5 PLT (test code = 777-3) See_Comment [Automated message] The system which generated this result transmitted reference range: 166 - 358 10*3/?L. The reference range was not used to interpret this result as normal/abnormal. MPV (test code = 80142-8) 10.8 fL 9.5-12.9 NRBC/100 WBC (test code = 9107438737) See_Comment [Automated message] The system which generated this result transmitted reference range: 0.0 - 10.0 /100 WBCs. The reference range was not used to interpret this result as normal/abnormal. NRBC x10^3 (test code = 1777899565) <0.01 See_Comment [Automated message] The system which generated this result transmitted reference range: 10*3/?L. The reference range was not used to interpret this result as normal/abnormal. GRAN MAT (NEUT) % (test code = 770-8) 83.7 % IMM GRAN % (test code = 7574325304) 0.50 % LYMPH % (test code = 736-9) 10.9 % MONO % (test code = 5905-5) 4.1 % EOS % (test code = 713-8) 0.5 % BASO % (test code = 706-2) 0.3 % GRAN MAT x10^3(ANC) (test code = 7140826148) 15.99 10*3/uL 1.88-7.09 H IMM GRAN x10^3 (test code = 0745150018) 0.10 10*3/uL 0.00-0.06 H LYMPH x10^3 (test code = 731-0) 2.08 10*3/uL 1.32-3.29 MONO x10^3 (test code = 742-7) 0.78 10*3/uL 0.33-0.92 EOS x10^3 (test code = 711-2) 0.09 10*3/uL 0.03-0.39 BASO x10^3 (test code = 704-7) 0.06 10*3/uL 0.01-0.07 BANDS (test code = 7598666559) Increased A Lab Interpretation (test code = 41753-7) [facility]normal [id number] 05:54:00* Test Item Value Reference Range Interpretation Comme nts POCT PREG (test code = 1605) negative Lab Interpretation (test cod e = 53711-7) Normal [facility]. METABOLIC PANEL (36219)2021-12-21 05:45:23* Test Item Value Reference Range Interpretation Comme nts NA (test code = 8866433761) 139 mmol/L 135-145 K (test code = 3800504646) 4.1 mmol/L 3.5-5.0 CL (test code = 4786859034) 103 mmol/L 98-108 CO2 TOTAL (test code = 1183545976) 22 mmol/L 23-31 L AGAP (test code = 1398075154) 2-16 BUN (test code = 4162219345) 18 mg/dL 7-23 GLUCOSE (test code = 8713566093) 116 mg/dL 70-110 H CREATININE (test code = 8636994946) 0.79 mg/dL 0.50-1.04 TOTAL BILI (test code = 0991981971) 0.5 mg/dL 0.1-1.1 CALCIUM (test code = 0587978452) 9.3 mg/dL 8.6-10.6 T PROTEIN (test code = 2407162691) 8.3 g/dL 6.3-8.2 H ALBUMIN (test code = 2040094127) 5.3 g/dL 3.5-5.0 H ALK PHOS (test code = 6662223997) 156 U/L 34-122 H ALTv (test code = 1742-6) 27 U/L 5-35 AST(SGOT) (test code = 3161009762) 36 U/L 13-40 eGFR (test code = 3079549165) mL/min/1.73m2 ANIBAL (test code = ANIBAL) Association [...] imaging tests). Lab Interpretation (test code = 50706-4) [facility] 05:45:23* Test Item Value Reference Range Interpretation Comme nts MAGNESIUM (test code = 9765342978) 1.9 mg/dL 1.7-2.4 Lab Interpretation (test cod e = 01588-6) Normal [facility] T4 and TSH panel - Serum or Plasma 2021-12-06 00:00:00* Test Item Value Reference Range Interpretation Comme nts Thyrotropin [Units/volume] i n Serum or Plasma by Detection limit <= 0.005 mIU/L (test code = 22630-0) <0.005 0.450-4.500 L Thyroxine (T4) free [Mass/vo lume] in Serum or Plasma (test code = 3024-7) 0.79 NG/dL 0.82-1.77 L [facility] W Auto Differential panel - [id number] 00:00:00* Test Item Value Reference Range Interpretation [...] immature cells (test code = immature cells) recruiter account manager Neutrophils [#/volume] in Bl ood by Automated [...] Blood by Automated count (test code = 25381-5) 0 % not estab. Immature granulocytes [#/volume] in Blood by Automated count (test code = 78304-5) 0.0 x10e3/uL 0.0-0.1 Nucleated erythrocytes/100 leukocytes [Ratio] in Blood by Automated count (test code = 58551-9) recruiter account manager Morphology [Interpretation] in Blood Narrative (test code = 13886-6) recruiter account manager [facility] - Serum or [id number] 00:00:00* Test Item Value Reference Range Interpretation [...] by Creatinine-based formula (CKD-EPI) (test code = 77225-4) 120 mL/min/1.73 >59 Glomerular filtration rate/1.73 sq M.predicted among blacks [Volume Rate/Area] in Serum, Plasma or Blood by Creatinine-based formula (CKD-EPI) (test code = 30768-1) 139 mL/min/1.73 >59 Urea nitrogen/Creatinine [Mass Ratio] [...] in Serum or Plasma (test code = 00451-2) 9.2 mg/dL 8.7-10.2 Protein [Mass/volume] in Serum or Plasma (test code = 2885-2) 6.8 g/dL 6.0-8.5 Albumin [Mass/volume] in Serum or Plasma (test code = 1751-7) 4.5 g/dL 3.9-5.0 Globulin [Mass/volume] in Serum by calculation (test code = 61380-0) 2.3 g/dL 1.5-4.5 Albumin/Globulin [Mass Ratio ] [...] [facility] MedicalTriiodothyronine (T3) [Mass/volume] in Serum or [id number] 00:00:00* Test Item Value Reference Range Interpretation Comme nts Triiodothyronine (T3) [Mass/ volume] in Serum or Plasma (test code = 3053-6) 104 NG/dL 71-180 [facility] MedicalTROPONIN [id number] 06:47:56* Test Item Value Reference Range Interpretation Comments TROPONIN I (test code = 9900660931) 0.000 ng/mL See_Comment [Automated message] The system [...] of biotin. Lab Interpretation (test code = 34088-7) Normal [facility] [id number] 06:44:35* Test Item Value Reference Range Interpretation Comme nts NT-proBNP (test code = 0629234290) 102 pg/mL See_Comment [Automated message] The system which generated this result transmitted reference range: <=125. The reference range was not used to interpret this result as normal/abnormal. ANIBAL (test code = ANIBAL) Biotin has been reported to cause a negative bias, interpret results relative to patient's use of biotin. Lab Interpretation (test code = 51716-1) Normal [facility] MET[facility]OLIC PANEL (19395)2021-11-03 06:35:53* Test Item Value Reference Range Interpretation Comme nts NA (test code = 6111050353) 138 mmol/L 135-145 K (test code = 4381312006) 3.6 mmol/L 3.5-5.0 CL (test code = 4614556040) 107 mmol/L 98-108 CO2 TOTAL (test code = 3245271581) 23 mmol/L 23-31 AGAP (test code = 4838384341) 2-16 BUN (test code = 1290893200) 12 mg/dL 7-23 GLUCOSE (test code = 6261708443) 88 mg/dL 70-110 CREATININE (test code = 1527530248) 0.50 mg/dL 0.50-1.04 TOTAL BILI (test code = 7789453229) 0.3 mg/dL 0.1-1.1 CALCIUM (test code = 3279016038) 9.1 mg/dL 8.6-10.6 T PROTEIN (test code = 8299680753) 6.6 g/dL 6.3-8.2 ALBUMIN (test code = 8035445778) 4.0 g/dL 3.5-5.0 ALK PHOS (test code = 9451438989) 146 U/L 34-122 H ALTv (test code = 1742-6) 29 U/L 5-35 AST(SGOT) (test code = 5784388048) 26 U/L 13-40 eGFR (test code = 8646599993) mL/min/1.73m2 ANIBAL (test code = ANIBAL) Association [...] imaging tests). Lab Interpretation (test code = 90278-2) [facility]normal [facility]-[id number] 06:33:52* Test Item Value Reference Range Interpretation Comments D-DIMER (test code = 9403846313) See_Comment H [Automated message] The system which [...] a diagnosis. Lab Interpretation (test code = 01232-3) [facility] [id number] 06:20:53* Test Item Value Reference Range Interpretation Comme nts WBC (test code = 6690-2) See_Comment H [Automated [employer]] The system which generated this result transmitted reference range: 4.30 - 11.10 10*3/?L. The reference range was not used to interpret this result as normal/abnormal. RBC (test code = 789-8) See_Comment [Automated [employer]] The system which generated this result [...] 32.9 g/dL 31.6-35.1 RDW-SD (test code = 41203-0) 37.9 fL 39.0-49.9 L RDW-CV (test code = 788-0) 13.0 % 12.0-15.5 PLT (test code = 777-3) See_Comment [Automated [employer]] The system which generated this result transmitted reference range: 166 - 358 10*3/?L. The reference range was not used to interpret this result as normal/abnormal. MPV (test code = 13317-2) 10.6 fL 9.5-12.9 NRBC/100 WBC (test code = 2587770044) See_Comment [Automated [employer] ssage] The system which generated this result transmitted reference range: 0.0 - 10.0 /100 WBCs. The reference range was not used to interpret this result as normal/abnormal. NRBC x10^3 (test code = 5618616605) <0.01 See_Comment [Automated [employer]] The system which generated this result transmitted reference range: 10*3/?L. The reference range was not used to interpret this result as normal/abnormal. GRAN MAT (NEUT) % (test code = 770-8) 61.2 % IMM GRAN % (test code = 9757336027) 0.30 % LYMPH % (test code = 736-9) 31.0 % MONO % (test code = 5905-5) 5.4 % EOS % (test code = 713-8) 1.7 % BASO % (test code = 706-2) 0.4 % GRAN MAT x10^3(ANC) (test code = 0352202755) 6.99 10*3/uL 1.88-7.09 IMM GRAN x10^3 (test code = 6625216554) 0.03 10*3/uL 0.00-0.06 LYMPH x10^3 (test code = 731-0) 3.54 10*3/uL 1.32-3.29 H MONO x10^3 (test code = 742-7) 0.62 10*3/uL 0.33-0.92 EOS x10^3 (test code = 711-2) 0.19 10*3/uL 0.03-0.39 BASO x10^3 (test code = 704-7) 0.04 10*3/uL 0.01-0.07 Lab Interpretation (test code = 98825-4) [facility]normal [facility] HospitalPOWY [id number] 06:19:00* Test Item Value Reference Range Interpretation Comme nts POCT PREG (test code = 1605) negative On board controls acceptable with C Line (test code = 3574) present POCT PREG LOT # (test code = 3575) [id number] POCT PREG TEST DATE ( test code = 3576) 2022-12-16 Lab Interpretation (test cod e = 84243-7) Normal [facility] T4 and TSH panel - Serum or Plasma 2021-10-15 00:00:00* Test Item Value Reference Range Interpretation Comme nts Thyrotropin [Units/volume] i n Serum or Plasma by Detection limit <= 0.005 mIU/L (test code = 59120-6) <0.005 0.450-4.500 L Thyroxine (T4) free [Mass/vo lume] in Serum or Plasma (test code = 3024-7) 3.58 NG/dL 0.82-1.77 H [facility] - Serum or [id number] 00:00:00* Test Item Value Reference Range Interpretation [...] by Creatinine-based formula (CKD-EPI) (test code = 87563-8) 136 mL/min/1.73 >59 Glomerular filtration rate/1.73 sq M.predicted among blacks [Volume Rate/Area] in Serum, Plasma or Blood by Creatinine-based formula (CKD-EPI) (test code = 38057-2) 157 mL/min/1.73 >59 Urea nitrogen/Creatinine [Mass Ratio] in Serum or Plasma (test code = 3097-3) 22 9-23 Sodium [Moles/volume] in Serum or Plasma (test code = 2951-2) 139 mmol/L 134-144 Potassium [Moles/volume] in Serum or Plasma (test code = 2823-3) 4.4 mmol/L 3.5-5.2 Chloride [Moles/volume] in Serum or Plasma (test code = 2074-0) 105 mmol/L 96-106 Carbon dioxide, total [Moles/volume] in Serum or Plasma (test code = 2027-) 21 mmol/L 20-29 Calcium [Mass/volume] in Serum or Plasma (test code = 45868-3) 10.0 mg/dL 8.7-10.2 Protein [Mass/volume] in Serum or Plasma (test code = 2885-2) 6.8 g/dL 6.0-8.5 Albumin [Mass/volume] in Serum or Plasma (test code = 1751-7) 4.3 g/dL 3.9-5.0 Globulin [Mass/volume] in Serum by calculation (test code = 74359-1) 2.5 g/dL 1.5-4.5 Albumin/Globulin [Mass Ratio ] in Serum or Plasma (test code = 1759-0) 1.7 1.2-2.2 Bilirubin.total [Mass/volume ] in Serum or Plasma (test code = 1974-) 0.4 mg/dL 0.0-1.2 Alkaline phosphatase [Enzymatic activity/volume] in Serum or Plasma (test code = 6768-6) 156 IU/L 44-121 H Aspartate aminotransferase [Enzymatic activity/volume] in Serum or Plasma (test code = 1920-8) 17 IU/L 0-40 Alanine aminotransferase [Enzymatic activity/volume] in Serum or Plasma (test code = 1742-6) 26 IU/L 0-32 [facility]iodothyronine (T3) [Mass/volume] in Serum or [id number] 00:00:00* Test Item Value Reference Range Interpretation Comme nts Triiodothyronine (T3) [Mass/ volume] in Serum or Plasma (test code = 3053-6) 407 NG/dL 71-180 H [facility] W Auto Differential panel - [id number] 00:00:00* Test Item Value Reference Range Interpretation [...] immature cells (test code = immature cells) recruiter account manager Neutrophils [#/volume] in Bl ood by Automated [...] Blood by Automated count (test code = 46663-5) 0 % not estab. Immature granulocytes [#/volume] in Blood by Automated count (test code = 82618-1) 0.0 x10e3/uL 0.0-0.1 Nucleated erythrocytes/100 leukocytes [Ratio] in Blood by Automated count (test code = 86889-0) recruiter account manager Morphology [Interpretation] in Blood Narrative (test code = 09363-4) recruiter account manager [facility] MedicalGC, AMPLIFIED, [id number] 00:00:00* Test Item Value Reference Range Interpretation Comme nts GONORRHEA, NAAT (test code = 77381) NEGATIVE CHLAMYDIA, AMPLIFIED, [id number] 00:00:00* Test Item Value Reference Range Interpretation Comme nts CHLAMYDIA, NAAT (test code = 30134) NEGATIVE Garrett SanGC, AMPLIFIED, [id number] 00:00:00* Test Item Value Reference Range Interpretation Comme nts GONORRHEA, NAAT (test code = 88930) NEGATIVE Garrett Palomino AustinCHLAMYDIA, AMPLIFIED, [id number] 00:00:00* Test Item Value Reference Range Interpretation Comme nts CHLAMYDIA, NAAT (test code = 87527) NEGATIVE Garrett Palomino AustinGC, AMPLIFIED, [id number] 00:00:00* Test Item Value Reference Range Interpretation Comme nts GONORRHEA, NAAT (test code = 23383) NEGATIVE Garrett F AustinCHLAMYDIA, AMPLIFIED, [id number] 00:00:00* Test Item Value Reference Range Interpretation Comme nts CHLAMYDIA, NAAT (test code = 52520) NEGATIVE Garrett Palomino AustinGC, AMPLIFIED, [id number] 00:00:00* Test Item Value Reference Range Interpretation Comme nts GONORRHEA, NAAT (test code = 16273) NEGATIVE Garrett Palomino AustinCHLAMYDIA, AMPLIFIED, [id number] 00:00:00* Test Item Value Reference Range Interpretation Comme nts CHLAMYDIA, NAAT (test code = 08690) NEGATIVE UNLABELLED SPECIMEN [ADDED]2021-07-20 00:00:00* Test Item Value Reference Range Interpretation Comme nts NOTE: (test code = 40866) ACUTE HEPATITIS [id number] 00:00:00* Test Item Value Reference Range Interpretation Comme nts HEPATITIS A IgM (test code = 32970) NON-REACTIVE HEPATITIS B CORE IgM (test c ode = 4644) NON-REACTIVE HEPATITIS B SURF AG (test co de = 2739) NON-REACTIVE HEPATITIS C ANTIBODY (test c ode = 4675) NON-REACTIVE INTERPRETATION HEPATITIS A: (test code = 2552) (NOTE) INTERPRETATION HEPATITIS B: (test code = 10738) (NOTE) INTERPRETATION HEPATITIS C: (test code = 70155) (NOTE) RPR REFLEX TO T. PALLIDUM - PA [ADDED]2021-07-20 00:00:00* Test Item Value Reference Range Interpretation Comme nts RPR (test code = 27199) NON-REACTIVE RPR TITER (test code = 3500) NOT INDIC. TITER RPR REFLEX TO T. PALLIDUM - PA [ADDED]2021-07-20 00:00:00* Test Item Value Reference Range Interpretation Comme nts RPR (test code = 39611) NON-REACTIVE RPR TITER (test code = 3500) NOT INDIC. TITER Garrett SanHIV AB/AG COMBO RFLX [id number] 00:00:00* Test Item Value Reference Range Interpretation Comme nts HIV 1/2 4TH GEN, RFLX CONF ( test code = 3514) NON-REACTIVE Garrett Palomino AustinVAGINAL PATHOGENS DNA [id number] 00:00:00* Test Item Value Reference Range Interpretation Comme nts JOVANY SPECIES (test code = ) NEGATIVE G. VAGINALIS (test code = 91004) POSITIVE T. VAGINALIS (test code = 88065) NEGATIVE Garrett SanACUTE HEPATITIS [id number] 00:00:00* Test Item Value Reference Range Interpretation Comme nts HEPATITIS A IgM (test code = 89521) NON-REACTIVE HEPATITIS B CORE IgM (test c ode = 4644) NON-REACTIVE HEPATITIS B SURF AG (test co de = 2739) NON-REACTIVE HEPATITIS C ANTIBODY (test c ode = 4675) NON-REACTIVE INTERPRETATION HEPATITIS A: (test code = 2552) (NOTE) INTERPRETATION HEPATITIS B: (test code = 30354) (NOTE) INTERPRETATION HEPATITIS C: (test code = 53837) (NOTE) Garrett SanUNLABELLED SPECIMEN [ADDED]2021-07-20 00:00:00* Test Item Value Reference Range Interpretation Comme nts NOTE: (test code = 24472) Garrett Palomino AustinRPR REFLEX TO T. PALLIDUM - PA [ADDED]2021-07-20 00:00:00* Test Item Value Reference Range Interpretation Comme nts RPR (test code = 77413) NON-REACTIVE RPR TITER (test code = 3500) NOT INDIC. TITER Garrett Palomino AustinHIV AB/AG COMBO RFLX [id number] 00:00:00* Test Item Value Reference Range Interpretation Comme nts HIV 1/2 4TH GEN, RFLX CONF ( test code = 3514) NON-REACTIVE Garrett Palomino AustinVAGINAL PATHOGENS DNA [id number] 00:00:00* Test Item Value Reference Range Interpretation Comme nts JOVANY SPECIES (test code = ) NEGATIVE G. VAGINALIS (test code = 18155) POSITIVE T. VAGINALIS (test code = 98086) NEGATIVE Garrett SanACUTE HEPATITIS [id number] 00:00:00* Test Item Value Reference Range Interpretation Comme nts HEPATITIS A IgM (test code = 19397) NON-REACTIVE HEPATITIS B CORE IgM (test c ode = 4644) NON-REACTIVE HEPATITIS B SURF AG (test co de = 2739) NON-REACTIVE HEPATITIS C ANTIBODY (test c ode = 4675) NON-REACTIVE INTERPRETATION HEPATITIS A: (test code = 2552) (NOTE) INTERPRETATION HEPATITIS B: (test code = 81899) (NOTE) INTERPRETATION HEPATITIS C: (test code = 91317) (NOTE) Garrett Palomino AustinUNLABELLED SPECIMEN [ADDED]2021-07-20 00:00:00* Test Item Value Reference Range Interpretation Comme nts NOTE: (test code = 35128) Garrett SanRPR REFLEX TO T. PALLIDUM - PA [ADDED]2021-07-20 00:00:00* Test Item Value Reference Range Interpretation Comme nts RPR (test code = 06249) NON-REACTIVE RPR TITER (test code = 3500) NOT INDIC. TITER Garrett SanHIV AB/AG COMBO RFLX [id number] 00:00:00* Test Item Value Reference Range Interpretation Comme nts HIV 1/2 4TH GEN, RFLX CONF ( test code = 3514) NON-REACTIVE Garrett SanVAGINAL PATHOGENS DNA [id number] 00:00:00* Test Item Value Reference Range Interpretation Comme nts JOVANY SPECIES (test code = 65812) NEGATIVE G. VAGINALIS (test code = 63680) POSITIVE T. VAGINALIS (test code = 96572) NEGATIVE Garrett SanACUTE HEPATITIS [id number] 00:00:00* Test Item Value Reference Range Interpretation Comme nts HEPATITIS A IgM (test code = 30237) NON-REACTIVE HEPATITIS B CORE IgM (test c ode = 4644) NON-REACTIVE HEPATITIS B SURF AG (test co de = 2739) NON-REACTIVE HEPATITIS C ANTIBODY (test c ode = 4675) NON-REACTIVE INTERPRETATION HEPATITIS A: (test code = 2552) (NOTE) INTERPRETATION HEPATITIS B: (test code = 51324) (NOTE) INTERPRETATION HEPATITIS C: (test code = 64173) (NOTE) Garrett Palomino AustinUNLABELLED SPECIMEN [ADDED]2021-07-20 00:00:00* Test Item Value Reference Range Interpretation Comme nts NOTE: (test code = 64246) Garrett SanHIV AB/AG COMBO RFLX [id number] 00:00:00* Test Item Value Reference Range Interpretation Comme nts HIV 1/2 4TH GEN, RFLX CONF ( test code = 3514) NON-REACTIVE VAGINAL PATHOGENS DNA [id number] 00:00:00* Test Item Value Reference Range Interpretation Comme nts JOVANY SPECIES (test code = 33936) NEGATIVE G. VAGINALIS (test code = ) POSITIVE T. VAGINALIS (test code = 67861) NEGATIVE SARS-CoV-2 (COVID-19) by RT-PCR (HIGH RISK)2021-06-06 00:00:00* Test Item Value Reference Range Interpretation Comme nts SARS-CoV-2 INTERPRETATION (t est code = 75486) NEGATIVE SOURCE (test code = 94716) NOT SPECIFIED Garrett Palomino [id number]-7 (COVID-19) by RT-PCR (HIGH RISK)2021-06-06 00:00:00* Test Item Value Reference Range Interpretation Comme nts SARS-CoV-2 INTERPRETATION (t est code = 53652) NEGATIVE SOURCE (test code = 14960) NOT SPECIFIED Garrett Palomino [id number]-[id number] (COVID-19) by RT-PCR (HIGH RISK)2021-06-06 00:00:00* Test Item Value Reference Range Interpretation Comme nts SARS-CoV-2 INTERPRETATION (t est code = 20342) NEGATIVE SOURCE (test code = 36556) NOT SPECIFIED Garrett Palomino [id number]-[id number] (COVID-19) by RT-PCR (HIGH RISK)2021-06-06 00:00:00* Test Item Value Reference Range Interpretation Comme nts SARS-CoV-2 INTERPRETATION (t est code = 20975) NEGATIVE SOURCE (test code = 09283) NOT SPECIFIED NOTE: [ADDED]2021-05-01 00:00:00* Test Item Value Reference Range Interpretation Comme nts NOTE: (test code = 998) (NOTE) VAGINAL PATHOGENS DNA PANEL [ADDED]2021-05-01 00:00:00* Test Item Value Reference Range Interpretation Comme nts JOVANY SPECIES (test code = 38488) NEGATIVE G. VAGINALIS (test code = 76071) POSITIVE T. VAGINALIS (test code = 89346) NEGATIVE Garrett Palomino AustinNOTE: [ADDED]2021-05-01 00:00:00* Test Item Value Reference Range Interpretation Comme nts NOTE: (test code = 998) (NOTE) Garrett Palomino AustinVAGINAL PATHOGENS DNA PANEL [ADDED]2021-05-01 00:00:00* Test Item Value Reference Range Interpretation Comme nts JOVANY SPECIES (test code = ) NEGATIVE G. VAGINALIS (test code = 99320) POSITIVE T. VAGINALIS (test code = 17712) NEGATIVE Garrett Palomino AustinNOTE: [ADDED]2021-05-01 00:00:00* Test Item Value Reference Range Interpretation Comme nts NOTE: (test code = 998) (NOTE) Garrett Palomino AustinVAGINAL PATHOGENS DNA PANEL [ADDED]2021-05-01 00:00:00* Test Item Value Reference Range Interpretation Comme nts JOVANY SPECIES (test code = ) NEGATIVE G. VAGINALIS (test code = 52684) POSITIVE T. VAGINALIS (test code = 67838) NEGATIVE Garrett Palomino AustinNOTE: [ADDED]2021-05-01 00:00:00* Test Item Value Reference Range Interpretation Comme nts NOTE: (test code = 998) (NOTE) Garrett SanVAGINAL PATHOGENS DNA PANEL [ADDED]2021-05-01 00:00:00* Test Item Value Reference Range Interpretation Comme nts JOVANY SPECIES (test code = ) NEGATIVE G. VAGINALIS (test code = 17854) POSITIVE T. VAGINALIS (test code = 77267) NEGATIVE PAP TEST, THINPREP, [id number] 00:00:00* Test Item Value Reference Range Interpretation Comme nts SOURCE: (test code = 8001) Endocervical SLIDES: (test code = 8011) 1 LMP: (test code = 8021) 01/17/2021 SPECIMEN ADEQUACY: (test code = 14860) (NOTE) INTERPRETATION: (test code = 39731) ASCUS/EPITH. ABNORMALITY; SEE BELOW OTHER COMMENTS: (test code = 8081) (NOTE) OBSTETRICS GYN: (test code = 8101) ABDIAS Bynum(ASCP) QC TECHNOLOGIST: (test code = 8111) Yadira TatumSCT(ASCP)CT(IA C) PATHOLOGIST INTERPRETATION BY: (test code = 8122) Amita Morales M.D. LOCATION: (test code = 09692) (NOTE) CPT: (test code = 8140) (NOTE) PAP TEST, THINPREP, [id number] 00:00:00* Test Item Value Reference Range Interpretation Comme nts SOURCE: (test code = 8001) Endocervical SLIDES: (test code = 8011) 1 LMP: (test code = 8021) 01/17/2021 SPECIMEN ADEQUACY: (test code = 80372) (NOTE) INTERPRETATION: (test code = 37678) ASCUS/EPITH. ABNORMALITY; SEE BELOW OTHER COMMENTS: (test code = 8081) (NOTE) OBSTETRICS GYN: (test code = 8101) ABDIAS Bynum(ASCP) QC TECHNOLOGIST: (test code = 8111) Yadira TatumSCT(ASCP)CT(IA C) PATHOLOGIST INTERPRETATION BY: (test code = 8122) Amita Morales M.D. LOCATION: (test code = 84567) (NOTE) CPT: (test code = 8140) (NOTE) Garrettabby SanPAP TEST, THINPREP, [id number] 00:00:00* Test Item Value Reference Range Interpretation Comme nts SOURCE: (test code = 8001) Endocervical SLIDES: (test code = 8011) 1 LMP: (test code = 8021) 01/17/2021 SPECIMEN ADEQUACY: (test code = 54145) (NOTE) INTERPRETATION: (test code = 03464) ASCUS/EPITH. ABNORMALITY; SEE BELOW OTHER COMMENTS: (test code = 8081) (NOTE) OBSTETRICS GYN: (test code = 8101) ABDIAS Bynum(ASCP) QC TECHNOLOGIST: (test code = 8111) LATOYA Sagastume(ASCP)CT(IA C) PATHOLOGIST INTERPRETATION BY: (test code = 8122) Amita Morales M.D. LOCATION: (test code = 99344) (NOTE) CPT: (test code = 8140) (NOTE) Garrett F JaswinderPAP TEST, THINPREP, [id number] 00:00:00* Test Item Value Reference Range Interpretation Comme nts SOURCE: (test code = 8001) Endocervical SLIDES: (test code = 8011) 1 LMP: (test code = 8021) 01/17/2021 SPECIMEN ADEQUACY: (test code = 43382) (NOTE) INTERPRETATION: (test code = 11866) ASCUS/EPITH. ABNORMALITY; SEE BELOW OTHER COMMENTS: (test code = 8081) (NOTE) OBSTETRICS GYN: (test code = 8101) Iman Wise,CT(ASCP) QC TECHNOLOGIST: (test code = 8111) Yadira TatumSCT(ASCP)CT(IA C) PATHOLOGIST INTERPRETATION BY: (test code = 8122) Amita Morales M.D. LOCATION: (test code = 94551) (NOTE) CPT: (test code = 8140) (NOTE) Garrett [id number] 00:00:00* Test Item Value Reference Range Interpretation Comme nts RPR RESULT (test code = 3501) NON-REACTIVE RPR TITER (test code = 3500) NOT INDIC. TITER HIV AB/AG COMBO RFLX [id number] 00:00:00* Test Item Value Reference Range Interpretation Comme nts HIV 1/2 4TH GEN, RFLX CONF ( test code = 3514) NON-REACTIVE HPV HIGH RISK WITH GENOTYPE, [id number] 00:00:00* Test Item Value Reference Range Interpretation Comme nts HPV HIGH RISK INTERP (test c ode = 43807) POSITIVE HPV 16 (test code = 34320) NEGATIVE HPV 18 (test code = 55196) NEGATIVE HPV, HR, OTHER GENOTYPES (te st code = 47912) POSITIVE GC AND CHLAMYDIA, AMPLIFIED, [id number] 00:00:00* Test Item Value Reference Range Interpretation Comme nts GONORRHEA, NAAT (test code = 69122) NEGATIVE CHLAMYDIA, NAAT (test code = 67454) NEGATIVE HIV AB/AG COMBO RFLX [id number] 00:00:00* Test Item Value Reference Range Interpretation Comme nts HIV 1/2 4TH GEN, RFLX CONF ( test code = 3514) NON-REACTIVE Garrett Palomino AustinHPV HIGH RISK WITH GENOTYPE, [id number] 00:00:00* Test Item Value Reference Range Interpretation Comme nts HPV HIGH RISK INTERP (test c ode = 69708) POSITIVE HPV 16 (test code = 80297) NEGATIVE HPV 18 (test code = 37684) NEGATIVE HPV, HR, OTHER GENOTYPES (te st code = 78763) POSITIVE Garrett SanGC AND CHLAMYDIA, AMPLIFIED, [id number] 00:00:00* Test Item Value Reference Range Interpretation Comme nts GONORRHEA, NAAT (test code = 15218) NEGATIVE CHLAMYDIA, NAAT (test code = 97889) NEGATIVE Garrett SanACUTE HEPATITIS [id number] 00:00:00* Test Item Value Reference Range Interpretation Comme nts HEPATITIS A IgM (test code = 19639) NON-REACTIVE HEPATITIS B CORE IgM (test c ode = 4644) NON-REACTIVE HEPATITIS B SURF AG (test co de = 2739) NON-REACTIVE HEPATITIS C ANTIBODY (test c ode = 4675) NON-REACTIVE INTERPRETATION HEPATITIS A: (test code = 2552) (NOTE) INTERPRETATION HEPATITIS B: (test code = 62055) (NOTE) INTERPRETATION HEPATITIS C: (test code = 35447) (NOTE) Garrett SanGC AND CHLAMYDIA AMPLIFIED, [id number] 00:00:00* Test Item Value Reference Range Interpretation Comme nts GONORRHEA, TMA (test code = 58735) NEGATIVE CHLAMYDIA, TMA (test code = 00854) NEGATIVE Garrett [id number] 00:00:00* Test Item Value Reference Range Interpretation Comme nts RPR RESULT (test code = 3501) NON-REACTIVE RPR TITER (test code = 3500) NOT INDIC. TITER Garrett SanHIV AB/AG COMBO RFLX [id number] 00:00:00* Test Item Value Reference Range Interpretation Comme nts HIV 1/2 4TH GEN, RFLX CONF ( test code = 3514) NON-REACTIVE Garrett SanHPV HIGH RISK WITH GENOTYPE, [id number] 00:00:00* Test Item Value Reference Range Interpretation Comme nts HPV HIGH RISK INTERP (test c ode = 14620) POSITIVE HPV 16 (test code = 57861) NEGATIVE HPV 18 (test code = 87983) NEGATIVE HPV, HR, OTHER GENOTYPES (te st code = 80103) POSITIVE Garrett SanGC AND CHLAMYDIA, AMPLIFIED, [id number] 00:00:00* Test Item Value Reference Range Interpretation Comme nts GONORRHEA, NAAT (test code = 74774) NEGATIVE CHLAMYDIA, NAAT (test code = 42308) NEGATIVE Garrett SanGC AND CHLAMYDIA AMPLIFIED, [id number] 00:00:00* Test Item Value Reference Range Interpretation Comme nts GONORRHEA, TMA (test code = 82541) NEGATIVE CHLAMYDIA, TMA (test code = 86524) NEGATIVE Garrett SanACUTE HEPATITIS [id number] 00:00:00* Test Item Value Reference Range Interpretation Comme nts HEPATITIS A IgM (test code = 52725) NON-REACTIVE HEPATITIS B CORE IgM (test c ode = 4644) NON-REACTIVE HEPATITIS B SURF AG (test co de = 2739) NON-REACTIVE HEPATITIS C ANTIBODY (test c ode = 4675) NON-REACTIVE INTERPRETATION HEPATITIS A: (test code = 2552) (NOTE) INTERPRETATION HEPATITIS B: (test code = 03614) (NOTE) INTERPRETATION HEPATITIS C: (test code = 77634) (NOTE) Garrett [id number] 00:00:00* Test Item Value Reference Range Interpretation Comme nts RPR RESULT (test code = 3501) NON-REACTIVE RPR TITER (test code = 3500) NOT INDIC. TITER Garrett SanHIV AB/AG COMBO RFLX [id number] 00:00:00* Test Item Value Reference Range Interpretation Comme lawson HIV 1/2 4TH GEN, RFLX CONF ( test code = 3514) NON-REACTIVE Garrett SanHPV HIGH RISK WITH GENOTYPE, [id number] 00:00:00* Test Item Value Reference Range Interpretation Comme lawson HPV HIGH RISK INTERP (test c ode = 22782) POSITIVE HPV 16 (test code = 89649) NEGATIVE HPV 18 (test code = 88958) NEGATIVE HPV, HR, OTHER GENOTYPES (te st code = 59548) POSITIVE Garrett SanGC AND CHLAMYDIA, AMPLIFIED, [id number] 00:00:00* Test Item Value Reference Range Interpretation Comme nts GONORRHEA, NAAT (test code = 52619) NEGATIVE CHLAMYDIA, NAAT (test code = 93436) NEGATIVE Garrett SanACUTE HEPATITIS [id number] 00:00:00* Test Item Value Reference Range Interpretation Comme nts HEPATITIS A IgM (test code = 24727) NON-REACTIVE HEPATITIS B CORE IgM (test c ode = 4644) NON-REACTIVE HEPATITIS B SURF AG (test co de = 2739) NON-REACTIVE HEPATITIS C ANTIBODY (test c ode = 4675) NON-REACTIVE INTERPRETATION HEPATITIS A: (test code = 2552) (NOTE) INTERPRETATION HEPATITIS B: (test code = 09005) (NOTE) INTERPRETATION HEPATITIS C: (test code = 48924) (NOTE) Garrett aSnGC AND CHLAMYDIA AMPLIFIED, [id number] 00:00:00* Test Item Value Reference Range Interpretation Comme nts GONORRHEA, TMA (test code = 90736) NEGATIVE CHLAMYDIA, TMA (test code = 16636) NEGATIVE Garrett [id number] 00:00:00* Test Item Value Reference Range Interpretation Comme nts RPR RESULT (test code = 3501) NON-REACTIVE RPR TITER (test code = 3500) NOT INDIC. TITER Garrett SanGC AND CHLAMYDIA AMPLIFIED, [id number] 00:00:00* Test Item Value Reference Range Interpretation Comme nts GONORRHEA, TMA (test code = 61116) NEGATIVE CHLAMYDIA, TMA (test code = 91375) NEGATIVE ACUTE HEPATITIS [id number] 00:00:00* Test Item Value Reference Range Interpretation Comme nts HEPATITIS A IgM (test code = 10396) NON-REACTIVE HEPATITIS B CORE IgM (test c ode = 4644) NON-REACTIVE HEPATITIS B SURF AG (test co de = 2739) NON-REACTIVE HEPATITIS C ANTIBODY (test c ode = 4675) NON-REACTIVE INTERPRETATION HEPATITIS A: (test code = 2552) (NOTE) INTERPRETATION HEPATITIS B: (test code = 20385) (NOTE) INTERPRETATION HEPATITIS C: (test code = 14691) (NOTE)
[2024-10-19 17:11] LABS: Specific Gravity 1.015 (1.005-1.030); Urine Bilirubin NEGATIVE (Negative); Urine Blood Negative (Negative); Urine Clarity Clear (Clear); Urine Color Colorless (Yellow); Urine Glucose NEGATIVE (Negative); Urine Ketones NEGATIVE (Negative); Urine Microscopic Reflex YN NO UMIC; Urine Nitrite NEGATIVE (Negative); Urine Protein NEGATIVE (Negative); Urine Urobilinogen Normal (Normal); Urine pH 6.5 (5.0-7.0)
[2024-10-19 17:13] LABS: Specific Gravity 1.015 (1.005-1.030)
--- NOTE | 2024-10-19 17:24 | ER ---
Nurse's Notes [facility] Name: Niru Castro Age: 24 yrs Sex: Female : 2000 Arrival Date: 10/19/2024 Time: 16:45 Bed 19 Private MD: Diagnosis: Urinary frequency Presentation: 10/19 16:58 Chief complaint: Patient states: Intermittent dysuria, frequency and abdominal pain x3 rs5 days. Pt reports possible . Coronavirus screen: At this time, the client does not indicate any symptoms associated with coronavirus-19. Ebola Screen: No symptoms or risks identified at this time. Initial Sepsis Screen: Does the patient meet any 2 criteria? No. Patient's initial sepsis screen is negative. Does the patient have a suspected source of infection? No. Patient's initial sepsis screen is negative. Risk Assessment: Do you want to hurt yourself or someone else? Patient reports no desire to harm self or others. Onset of symptoms was October 15, 2024. 16:58 Method Of Arrival: Ambulatory rs5 16:58 Acuity: JOLLY 3 rs5 Triage Assessment: 17:00 General: Appears in no apparent distress. Behavior is calm, cooperative, appropriate bp for age. Pain: Denies pain. EENT: No deficits noted. Neuro: No deficits noted. Cardiovascular: No deficits noted. Respiratory: No deficits noted. GI: No deficits noted. : Reports burning with urination. Derm: No deficits noted. Musculoskeletal: No deficits noted. Historical: - Allergies: 17:03 No Known Allergies; rs5 - PMHx: 17:03 graves disease; Hyperthyroidism; rs5 - PSHx: 17:03 Cholecystectomy; Repair of inguinal hernia; Appendectomy; rs5 - Immunization history:: Adult Immunizations up to date. - Infectious Disease History:: Denies. - Social history:: Smoking status: Patient denies any tobacco usage or history of. Screenin:00 [facility] ED Fall Risk Assessment (Adult) History of falling in the last 3 months, bp including since admission No falls in past 3 months (0 pts) Confusion or Disorientation No (0 pts) Intoxicated or Sedated No (0 pts) Impaired Gait No (0 pts) Mobility Assist Device Used No (0 pt) Altered Elimination No (0 pt) Score/Fall Risk Level 0 - 2 = Low Risk Oriented to surroundings. Abuse screen: Denies threats or abuse. Denies injuries from another. Nutritional screening: No deficits noted. Tuberculosis screening: No symptoms or risk factors identified. Assessment: 17:00 General: Appears in no apparent distress. Behavior is calm, cooperative, appropriate bp for age. Vital Signs: 16:58 BP 107 / 74; Pulse 88; Resp 17; Temp 98.4(O); Pulse Ox 99% on R/A; rs5 ED Course: 16:47 Patient arrived in ED. im 16:48 Ne Caballero FNP-C [facility]. kb 16:48 Prosper Johnson MD is Attending Physician. kb 17:00 Arm band placed on. bp 17:00 Patient has correct armband on for positive identification. bp 17:01 Sang Bullock, RN is Primary Nurse. bp 17:03 Triage completed. rs5 17:05 Urine collected: clean catch specimen, clear. bp 17:28 No provider procedures requiring assistance completed. Patient did not have IV access bp during this emergency room visit. Administered Medications: No medications were administered Medication: 17:00 VIS not applicable for this client. bp Outcome: 17:24 Discharge ordered by MD. kb 17:28 Discharged to home ambulatory, bp 17:28 Condition: stable 17:28 Discharge instructions given to patient, Instructed on discharge instructions, follow up and referral plans. Demonstrated understanding of instructions, follow-up care, 17:30 Patient left the ED. bp Signatures: Ne Caballero FNP-C FNP-Ckb Peltier, Brian, RN RN bp Fritz Wang RN RN rs5 Cayla Alonso im
--- NOTE | 2024-10-19 17:24 | EDPHYS ---
Physician Documentation [facility] Name: Niru Castro Age: 24 yrs Sex: Female : 2000 Arrival Date: 10/19/2024 Time: 16:45 Bed 19 Private MD: ED Physician Prosper Johnson HPI: 10/19 16:51 This 24 yrs old Female presents to ER via Unassigned with complaints of kb Urinary Problem, Abdominal Pain. 16:51 Pt is a 24 year old female who presents for urinary frequency, dysuria that started one kb week ago. Also reports 3 positive tests and 2 negative. Denies fever, nausea, vomiting. Historical: - Allergies: 17:03 No Known Allergies; rs5 - PMHx: 17:03 graves disease; Hyperthyroidism; rs5 - PSHx: 17:03 Cholecystectomy; Repair of inguinal hernia; Appendectomy; rs5 - Immunization history:: Adult Immunizations up to date. - Infectious Disease History:: Denies. - Social history:: Smoking status: Patient denies any tobacco usage or history of. ROS: 16:51 Constitutional: As per HPI kb Exam: 16:51 Constitutional: This is a well developed, well nourished patient who is awake, alert, kb and in no acute distress. Head/Face: Normocephalic, atraumatic. ENT: Moist Mucous membranes Cardiovascular: Regular rate Respiratory: Respirations even and unlabored. No increased work of breathing. Talking in full sentences Abdomen/GI: Soft, non-tender. No distention Skin: Warm, dry with normal turgor. Normal color. MS/ Extremity: Pulses equal, no cyanosis. Neurovascular intact. Full, normal range of motion. Neuro: Awake and alert, GCS 15, oriented to person, place, time, and situation. Vital Signs: 16:58 BP 107 / 74; Pulse 88; Resp 17; Temp 98.4(O); Pulse Ox 99% on R/A; rs5 MDM: 16:49 Medical Screening Exam initiated kb 17:23 Differential diagnosis: UTI, . Data reviewed: vital signs, nurses notes. kb Counseling: I had a detailed discussion with the patient and/or guardian regarding the historical points, exam findings, and any diagnostic results supporting the discharge/admit diagnosis, lab results, the need for outpatient follow up, a family practitioner, to return to the emergency department if symptoms worsen or persist or if there are any questions or concerns that arise at home. 10/19 16:53 Order name: Test, Urine; Complete Time: 17:14 kb 10/19 16:53 Order name: Urinalysis w/ reflexes; Complete Time: 17:14 kb Administered Medications: No medications were administered Disposition Summary: 10/19/24 17:24 Discharge Ordered Notes: Location: Home kb Condition: Stable kb Diagnosis - Urinary frequency kb Followup: kb - With: Emergency Department - When: As needed - Reason: Worsening of condition Followup: kb - With: Private Physician - When: 2 - 3 days - Reason: Recheck today's complaints, Continuance of care, Re-evaluation by your physician Discharge Instructions: - Discharge Summary Sheet kb - Urinary Frequency, Adult kb Forms: - Medication Reconciliation Form kb - Antibiotic Education kb - Prescription Opioid Use kb - Patient Portal Instructions kb - Leadership Thank You Letter kb Addendum: 10/24/2024 07:45 I was immediately available for consultation during this patient's visit. I did not e c2 personally see the patient or discuss the patient with the YOGESH. . Signatures: Dispatcher [employer] Ne Duran, COLD STORAGE SUPERVISOR-C COLD STORAGE SUPERVISOR-Fritz Dominguez RN RN rs5 Prosper Johnson MD MD ec2 Corrections: (The following items were deleted from the chart) 10/19 16:54 16:54 Test, Urine+UC.LAB.BRZ ordered. EDMS EDMS 16:54 16:54 Urinalysis+U.LAB.BRZ ordered. EDVT EDMS
[2024-10-19 19:20] VITALS: BP 107/74; TEMP 98.4; O2SAT 99
== END 2024-10-19 17:30 | disposition home or self-care (01) ==
LOC: ER 16:45
DX: R35.0 Frequency of micturition (principal); R30.0 Dysuria
CPT/HCPCS: 81003; 81025; 99283